=== PATIENT | male | born 1950 | race Caucasian/White ===

== ENCOUNTER → 2020-09-11 09:34 | Outpatient (REF) | payer MEDICARE, SELFPAY ==
--- NOTE | 2020-09-11 09:37 | CA_ITS ---
Transthoracic Echocardiogram Patient (Last, First, Middle): Ponce Fitzpatrick R Gender: Male Date of : 1950 Age: 70 Procedure Date: 09/11/2020 Procedure Type: Transthoracic Echocardiogram Location: OP Height: 175.26 cm Weight: 95.26 kg BSA: 2.11 m2 Heart Rate: bpm BP: 156 / 66 mmHg Train Driver: AUDELIA Referring MD: Efraín Perry [facility] Group Home Counselor: Adam Whyte MD Symptoms: R01.1 - Cardiac murmur, unspecified Study Quality: Good ECG Rhythm: Sinus Conclusions: - 1. Normal LV systolic function with impaired relaxation filling pattern 2. Moderate to severe aortic stenosis 3. Normal RV systolic pressure 4. No pericardial effusion Findings Left Ventricle Normal left ventricular size, thickness, and systolic function. The visually estimated ejection fraction is between 55-60%. Spectral Doppler is indicative of an impaired relaxation filling pattern. E/E prime ratio is between 8 and 15 consistent with indeterminate filling pressures. Right Ventricle Normal right ventricular cavity size and systolic function. Atria The left atrium is mildly dilated. There is lipomatous hypertrophy of the interatrial septum. There is no evidence of interatrial shunt. The right atrium is normal in size. Aortic Valve There is moderate calcification of the aortic valve. There is moderate thickening of the aortic valve. There is moderate to severe aortic valve stenosis. The peak aortic gradient is 50 mmHg.The mean gradient is 33 mmHg. The aortic valve area is 1.03 cm2. There is no aortic valve regurgitation. Mitral Valve There is mild anterior and posterior mitral leaflet thickening. There is mild mitral annular calcification. There is trace mitral valve regurgitation. There is no mitral valve stenosis. Pulmonic Valve The pulmonic valve was not well visualized. Tricuspid Valve Likely normal tricuspid valve structure and function. There is mild tricuspid valve regurgitation. The right ventricular systolic pressure is normal. The right ventricular systolic pressure is 28 mmHg. Normal right atrial pressure. There is no evidence of pulmonary hypertension. Great Vessels All visible segments of the aorta are normal in size. The pulmonary artery was not well visualized. Venous The inferior vena cava is normal in size and collapses greater than 50% with inspiration. Pericardium/Pleural There is no evidence of pericardial effusion. Prior Study Comparison No prior study available for comparison. Measurements 2D Linear Measurements RVIDd: 2.96 RVIDd Index: 1.40 IVSd: 1.13 0.6-0.9/0.6-1.0 cm LVIDd: 5.01 3.9-5.3/4.2-5.9 cm LVIDd Index: 2.37 2.4-3.2/2.2-3.1 cm/m2 LVIDs: 3.57 2.0-3.6 cm LVPWd: 1.19 0.7-1.1 cm Ao Root: 3.10 2.1-3.5 cm LA Diam: 4.40 2.7-3.8/3.0-4.0 cm LAIDs Index: 2.09 1.5-2.3 cm/m2 LV Mass: 278.80 67-162/88-224 g LV Mass Index: 132.13 43-95/49-115 g/m2 LVOT Diam: 2.40 3.0+(-)1.3 cm 2D Systolic Function EF 4C: 48.20 >55% EF 2C: 56.50 >55% Mitral Valve MV Pk E: 0.60 MV PK A: 0.77 MV Decel Time: 459.00 E/A: 0.80 E'Lateral: 6.96 E'Medial: 5.22 E/E' Med: 11.50 E/E' Lat: 8.60 Aortic Valve AoV Pk Kane: 3.53 AoV Mn Kane: 2.78 AoV VTI: 1.04 AoV Pk Grad: 50.00 Aov Mn Grad: 33.00 JULIO Cont.VTI: 1.03 LVOT LVOT Pk Kane: 0.91 LVOT Mn Kane: 0.59 LVOT VTI: 0.24 LVOT Pk Grad: 3.00 LVOT Mn Grad: 2.00 LVOT Diam: 2.40 LVOT Area: 4.52 Diastolic Function MV Pk E: 0.60 MV Pk A: 0.77 E/A: 0.80 E'Medial: 5.22 E/E' Med: 11.50 E' Laterial: 6.96 E/E' Lat: 8.60 Tricuspid Valve TR Pk Kane: 2.50 TR Pk Grad: 25.00 RA Press: 3.00 RVSP: 28.00 Great Vessels Aorta Ao Root-2D: 3.10 2.0-3.7 cm Ao Asc: 2.80 2.1-3.4 cm Updated in Other Vendor System with Status of Final Adam Whyte MD electronically signed on 09/12/2020 5:03:45 PM with status of Final
== END ==
LOC: HO.CARD 09:34
PROVIDERS: PCP Nurse Practitioner Family; Visit Provider Nurse Practitioner Family
DX: R01.1 Cardiac murmur, unspecified (principal)
CPT/HCPCS: 93306

== ENCOUNTER → 2020-10-01 08:08 | Outpatient (BNVA) | payer MEDICARE, SELFPAY | PROVIDERS: PCP Nurse Practitioner Family; Visit Provider Internal Medicine | DX: I35.0 Nonrheumatic aortic (valve) stenosis (principal); I49.3 Ventricular premature depolarization | CPT/HCPCS: 93005; 99202 ==

== ENCOUNTER → 2021-01-14 09:04 | Outpatient (REF) | payer MEDICARE, SELFPAY ==
--- NOTE | 2021-01-14 09:08 | CA_ITS ---
Transthoracic Echocardiogram Patient (Last, First, Middle): Ponce Fitzpatrick R Gender: Male Date of : 1950 Age: 70 Procedure Date: 01/14/2021 Procedure Type: Transthoracic Echocardiogram Location: OP Height: 175.26 cm Weight: 95.26 kg BSA: 2.11 m2 Heart Rate: bpm BP: 120 / 58 mmHg Dye Mixer: Sofiya MD: Froylan Galvan MD Payroll Tax Analyst: Adam Whyte MD Symptoms: I35.0 - Nonrheumatic aortic (valve) stenosis Study Quality: Good ECG Rhythm: Sinus Conclusions: - 1. Moderately severe to severe aortic stenosis 2. Normal LV systolic function with impaired relaxation filling pattern 3. No gross pericardial effusion Findings Left Ventricle Normal left ventricular size, thickness, and systolic function. The visually estimated ejection fraction is between 60-65%. Spectral Doppler is indicative of an impaired relaxation filling pattern. E/E prime ratio is between 8 and 15 consistent with indeterminate filling pressures. Right Ventricle Normal right ventricular cavity size and systolic function. Atria The left atrium is likely dilated. Interatrial shunt cannot be excluded. The right atrium is normal in size. Aortic Valve There is moderate calcification of the aortic valve. There is moderate thickening of the aortic valve with reduced excursion. There is moderate to severe aortic valve stenosis. The peak aortic gradient is 51 mmHg.The mean gradient is 38 mmHg. There is no aortic valve regurgitation. Calculated valve area of 1.02 centimeters sq with dimensionless index of 0.23. Mean gradient of 38 mm of mercury. Overall consistent with moderately severe to severe aortic stenosis Mitral Valve Normal mitral valve structure and function. There is mild mitral annular calcification. There is trace mitral valve regurgitation. There is no mitral valve stenosis. Pulmonic Valve The pulmonic valve was not well visualized. Tricuspid Valve Likely normal tricuspid valve structure and function. Tricuspid regurgitation envelope is inadequate for calculation of right ventricular systolic pressure. Great Vessels All visible segments of the aorta are normal in size. The pulmonary artery was not well visualized. Venous The inferior vena cava is normal in size and collapses greater than 50% with inspiration. Pericardium/Pleural There is no evidence of pericardial effusion. Prior Study Comparison Changes noted compared to prior study dated: 09/11/2020. Mean gradient calculated on this study was 38 mm of mercury which is slightly elevated compared to prior study Measurements 2D Linear Measurements RVIDd: 3.05 RVIDd Index: 1.45 IVSd: 1.11 0.6-0.9/0.6-1.0 cm LVIDd: 4.97 3.9-5.3/4.2-5.9 cm LVIDd Index: 2.36 2.4-3.2/2.2-3.1 cm/m2 LVPWd: 1.28 0.7-1.1 cm Ao Root: 2.90 2.1-3.5 cm LA Diam: 4.60 2.7-3.8/3.0-4.0 cm LAIDs Index: 2.18 1.5-2.3 cm/m2 LV Mass: 286.96 67-162/88-224 g LV Mass Index: 136.00 43-95/49-115 g/m2 LVOT Diam: 2.30 3.0+(-)1.3 cm 2D Systolic Function EF 4C: 62.60 >55% EF 2C: 68.20 >55% EF BiP: 64.20 >55% Mitral Valve MV Pk E: 0.75 MV PK A: 0.82 MV Decel Time: 264.00 E/A: 0.90 E'Lateral: 7.35 E'Medial: 6.87 E/E' Med: 10.90 E/E' Lat: 10.20 Aortic Valve AoV Pk Kane: 3.58 AoV Mn Kane: 2.81 AoV VTI: 0.99 AoV Pk Grad: 51.00 Aov Mn Grad: 38.00 JULIO Cont.VTI: 1.02 LVOT LVOT Pk Kane: 1.01 LVOT Mn Kane: 0.68 LVOT VTI: 0.24 LVOT Pk Grad: 4.00 LVOT Mn Grad: 2.00 LVOT Diam: 2.30 LVOT Area: 4.15 Diastolic Function MV Pk E: 0.75 MV Pk A: 0.82 E/A: 0.90 E'Medial: 6.87 E/E' Med: 10.90 E' Laterial: 7.35 E/E' Lat: 10.20 Tricuspid Valve RA Press: 3.00 Great Vessels Aorta Ao Root-2D: 2.90 2.0-3.7 cm Ao Asc: 3.00 2.1-3.4 cm Updated in Other Vendor System with Status of Final Adam Whyte MD electronically signed on 01/14/2021 12:00:15 PM with status of Final
== END ==
LOC: HO.CARD 09:04
PROVIDERS: Visit Provider Internal Medicine
DX: I35.0 Nonrheumatic aortic (valve) stenosis (principal)
CPT/HCPCS: 93306

== ENCOUNTER 2021-02-05 12:54 | Outpatient (REF) | payer MEDICARE, SELFPAY ==
[2021-02-05 14:28] LABS: Alanine Aminotransferase 24 U/L (0-40); Albumin Level 4.5 g/dL (3.5-5.0); Alkaline Phosphatase 65 U/L (39-117); Anion Gap 15 (12-20); Aspartate Amino Transferase 24 U/L (5-37); Bilirubin Total 1.1 mg/dL (0.0-1.0); Blood Urea Nitrogen 15 mg/dL (9-16); Calcium 10.1 mg/dL (8.4-10.2); Carbon Dioxide 29 mmol/L (22-29); Chloride 105 mmol/L (96-108); Cholesterol 214 mg/dL; Estimated Glomerular Filt Rate > 60; Glucose Fasting 92 mg/dL (60-99); HDL Cholesterol 47 mg/dL; LDL Cholesterol Calculated 148 mg/dl; Potassium 5.2 mmol/L (3.3-5.1); Sodium 144 mmol/L (135-145); Triglycerides 99 mg/dL
[2021-02-05 14:36] LABS: Prostate Specific Antigen Scr 0.66 ng/mL (<0.05-4.0); TSH reflex Free T4 0.85 uIU/mL (0.32-4.0)
[2021-02-09 13:27] LABS: Testosterone, Free 49.5 pg/mL (35.0-155.0); Testosterone, Total 364 ng/dL (250-1100)
== END 2021-02-05 12:55 | disposition home or self-care (01) ==
LOC: HO.HMGCLDS 12:54
PROVIDERS: PCP Nurse Practitioner Family; Visit Provider Nurse Practitioner Family
DX: Z00.00 Encounter for general adult medical examination without abnormal findings (principal); Z12.5 Encounter for screening for malignant neoplasm of prostate; N52.9 Male erectile dysfunction, unspecified; I35.0 Nonrheumatic aortic (valve) stenosis
CPT/HCPCS: 36415; 80053; 80061; 84153; 84402; 84403; 84443

== ENCOUNTER → 2021-02-06 09:35 | Outpatient (BNVA) | payer MEDICARE, SELFPAY | PROVIDERS: PCP Nurse Practitioner Family; Visit Provider Internal Medicine | DX: I35.0 Nonrheumatic aortic (valve) stenosis (principal); I49.3 Ventricular premature depolarization | CPT/HCPCS: 99212 ==

== ENCOUNTER 2021-02-14 14:49 | Outpatient (REF) | payer MEDICARE, SELFPAY ==
[2021-02-14 17:27] LABS: Anion Gap 13 (12-20); Carbon Dioxide 28 mmol/L (22-29); Chloride 105 mmol/L (96-108); Potassium 4.2 mmol/L (3.3-5.1); Sodium 142 mmol/L (135-145)
== END 2021-02-14 14:50 | disposition home or self-care (01) ==
LOC: HO.HMGCLDS 14:49
PROVIDERS: PCP Nurse Practitioner Family; Visit Provider Nurse Practitioner Family
DX: E87.5 Hyperkalemia (principal)
CPT/HCPCS: 36415; 80051

== ENCOUNTER 2021-02-22 09:32 | Outpatient (REF) | payer MEDICARE, SELFPAY ==
[2021-02-22 11:34] LABS: Iron 93 mcg/dL (45-160); Percent Iron Saturation 35 % (15-50); Total Iron Binding Capacity 263 mcg/dL (228-428); Unsaturated Iron Binding 170 ug/dL
[2021-02-22 11:58] LABS: Ferritin 215 ng/mL (20-250); Vitamin D 25-OH Total 45.6 ng/mL (>30)
[2021-02-24 03:50] LABS: Folate 17.7 ng/mL (> or = 4.0); Vitamin B12 368 pg/mL (200-900)
== END 2021-02-22 09:33 | disposition home or self-care (01) ==
LOC: HO.HMGCLDS 09:32
PROVIDERS: PCP Nurse Practitioner Family; Visit Provider Nurse Practitioner Family
DX: R53.83 Other fatigue (principal)
CPT/HCPCS: 36415; 82306; 82607; 82728; 82746; 83540

== ENCOUNTER → 2021-04-02 11:47 | Outpatient (BNVA) | payer MEDICARE, SELFPAY | PROVIDERS: PCP Nurse Practitioner Family; Referring Provider Nurse Practitioner Family; Visit Provider Nurse Practitioner Family | DX: Z12.11 Encounter for screening for malignant neoplasm of colon (principal); R01.1 Cardiac murmur, unspecified; I35.0 Nonrheumatic aortic (valve) stenosis; J44.9 Chronic obstructive pulmonary disease, unspecified; F17.200 Nicotine dependence, unspecified, uncomplicated; Z96.642 Presence of left artificial hip joint | CPT/HCPCS: 99202 ==

== ENCOUNTER → 2021-06-13 08:40 | Outpatient (BNVA) | payer MEDICARE, SELFPAY | PROVIDERS: PCP Nurse Practitioner Family; Visit Provider Urology | DX: N52.9 Male erectile dysfunction, unspecified (principal) | CPT/HCPCS: 99202 ==

== ENCOUNTER → 2021-07-14 09:16 | Outpatient (REF) | payer MEDICARE, SELFPAY ==
--- NOTE | 2021-07-14 09:19 | CA_ITS ---
Transthoracic Echocardiogram Patient (Last, First, Middle): Ponce Fitzpatrick R Gender: Male Date of : 1950 Age: 71 Procedure Date: 07/14/2021 Procedure Type: Transthoracic Echocardiogram Location: OP Height: 175.26 cm Weight: 90.72 kg BSA: 2.07 m2 Heart Rate: bpm BP: 110 / 60 mmHg Emergency Department Physician: FATOUMATA Referring MD: Froylan Galvan MD Symptoms: I35.0 - Nonrheumatic aortic (valve) stenosis Study Quality: Fair ECG Rhythm: Sinus Conclusions: - The left ventricular systolic function is normal. The visually estimated ejection fraction is between 60-65%. - There is moderate to severe aortic valve stenosis. Findings Left Ventricle Normal left ventricular cavity size. There is mildly increased left ventricular wall thickness. The left ventricular systolic function is normal. The visually estimated ejection fraction is between 60-65%. There is no evidence of regional wall motion abnormalities. E/E prime ratio is between 8 and 15 consistent with indeterminate filling pressures. Evidence suggests grade I (mild) diastolic dysfunction. Right Ventricle Normal right ventricular cavity size and systolic function. Atria Both atria are normal in size. Aortic Valve There is severe calcification of the aortic valve. There is moderate to severe aortic valve stenosis. The peak aortic velocity is 4.02 m/s with a calculated peak gradient of 65 mmHg. The mean gradient is 38 mmHg. The aortic valve area is 1.13 cm2. There is no aortic valve regurgitation. Dimensionless index 0.26. Mitral Valve The mitral valve appears normal. There is trace mitral valve regurgitation. There is no mitral valve stenosis. Pulmonic Valve The pulmonic valve was not well visualized. Tricuspid Valve Normal tricuspid valve structure. There is trace tricuspid valve regurgitation. The pulmonary artery systolic pressure is normal. Great Vessels The asc aorta is normal in size. Venous The inferior vena cava is normal in size and collapses greater than 50% with inspiration. Pericardium/Pleural There is no evidence of pericardial effusion. Prior Study Comparison No significant change compared to prior study dated: 01/14/2021. Measurements 2D Linear Measurements IVSd: 1.14 0.6-0.9/0.6-1.0 cm LVIDd: 4.20 3.9-5.3/4.2-5.9 cm LVIDd Index: 2.03 2.4-3.2/2.2-3.1 cm/m2 LVIDs: 2.57 2.0-3.6 cm LVPWd: 1.22 0.7-1.1 cm Ao Root: 3.00 2.1-3.5 cm LA Diam: 3.80 2.7-3.8/3.0-4.0 cm LAIDs Index: 1.84 1.5-2.3 cm/m2 LV Mass: 216.54 67-162/88-224 g LV Mass Index: 104.61 43-95/49-115 g/m2 LVOT Diam: 2.30 3.0+(-)1.3 cm 2D Systolic Function EF 4C: 62.40 >55% EF 2C: 52.80 >55% EF BiP: 58.40 >55% Mitral Valve MV Pk E: 0.69 MV PK A: 0.88 MV Decel Time: 369.00 E/A: 0.80 E'Lateral: 6.09 E'Medial: 6.85 E/E' Med: 10.00 E/E' Lat: 11.30 PHT: 108.00 MVA PHT: 2.04 Decel [place]: 1.86 Aortic Valve AoV Pk Kane: 4.02 AoV Mn Kane: 2.97 AoV VTI: 0.97 AoV Pk Grad: 65.00 Aov Mn Grad: 38.00 JULIO Cont.VTI: 1.13 LVOT LVOT Pk Kane: 1.06 LVOT Mn Kane: 0.73 LVOT VTI: 0.27 LVOT Pk Grad: 4.00 LVOT Mn Grad: 2.00 LVOT Diam: 2.30 LVOT Area: 4.15 Diastolic Function MV Pk E: 0.69 MV Pk A: 0.88 E/A: 0.80 E'Medial: 6.85 E/E' Med: 10.00 E' Laterial: 6.09 E/E' Lat: 11.30 Right Ventricle TAPSE (mm): 2.72 TVS' Kane: 14.10 Tricuspid Valve RA Press: 3.00 Great Vessels Aorta Ao Root-2D: 3.00 2.0-3.7 cm Ao Asc: 3.30 2.1-3.4 cm Updated in Other Vendor System with Status of Final Froylan Galvan MD electronically signed on 07/14/2021 11:44:16 AM with status of Final
== END ==
LOC: HO.CARD 09:16
PROVIDERS: PCP Nurse Practitioner Family; Visit Provider Internal Medicine
DX: I35.0 Nonrheumatic aortic (valve) stenosis (principal)
CPT/HCPCS: 93306

== ENCOUNTER → 2021-08-12 08:21 | Outpatient (BNVA) | payer MEDICARE, SELFPAY | PROVIDERS: PCP Nurse Practitioner Family; Referring Provider Nurse Practitioner Family; Visit Provider Internal Medicine ==

== ENCOUNTER → 2021-08-13 09:00 | Outpatient (BNVA) | payer MEDICARE, SELFPAY | PROVIDERS: PCP Nurse Practitioner Family; Referring Provider Nurse Practitioner Family; Visit Provider Internal Medicine | DX: I35.0 Nonrheumatic aortic (valve) stenosis (principal); I49.3 Ventricular premature depolarization | CPT/HCPCS: 99212 ==

== ENCOUNTER 2021-09-11 07:08 | Outpatient (REF) | payer MEDICARE, SELFPAY ==
[2021-09-11 11:09] LABS: Appearance Urine CLEAR; Color Urine YELLOW; Glucose Urine UA NEG (NEG); Leukocyte Esterase Urine NEG (NEG); Nitrite Urine NEG (NEG); Specific Gravity - Urine <= 1.005 (1.005-1.025); Urine Blood NEG (NEG); Urine Ketones NEG (NEG); Urine Protein NEG (NEG-TRACE)
[2021-09-11 11:50] LABS: Alanine Aminotransferase 21 U/L (0-40); Albumin Level 4.2 g/dL (3.5-5.0); Alkaline Phosphatase 61 U/L (39-117); Anion Gap 13 (12-20); Aspartate Amino Transferase 24 U/L (5-37); Bilirubin Total 0.9 mg/dL (0.0-1.0); Blood Urea Nitrogen 16 mg/dL (9-16); Calcium 9.6 mg/dL (8.4-10.2); Carbon Dioxide 26 mmol/L (22-29); Chloride 106 mmol/L (96-108); Cholesterol 147 mg/dL; Estimated Glomerular Filt Rate > 60; Glucose Fasting 95 mg/dL (60-99); HDL Cholesterol 49 mg/dL; LDL Cholesterol Calculated 77 mg/dl; Potassium 4.2 mmol/L (3.3-5.1); Sodium 141 mmol/L (135-145); Total Protein 6.7 g/dL (6.5-8.0); Triglycerides 105 mg/dL
[2021-09-11 12:00] LABS: TSH reflex Free T4 2.38 uIU/mL (0.32-4.0)
== END 2021-09-11 07:09 | disposition home or self-care (01) ==
LOC: HO.HMGCLDS 07:08
PROVIDERS: PCP Nurse Practitioner Family; Visit Provider Nurse Practitioner Family
DX: E78.5 Hyperlipidemia, unspecified (principal)
CPT/HCPCS: 36415; 80053; 80061; 81003; 84443

== ENCOUNTER → 2021-09-18 08:20 | Outpatient (BNVA) | payer MEDICARE, SELFPAY | PROVIDERS: PCP Nurse Practitioner Family; Visit Provider Urology | DX: Z13.89 Encounter for screening for other disorder (principal) | CPT/HCPCS: Q3014 ==

== ENCOUNTER 2022-01-27 07:43 | Outpatient (REF) | payer MEDICARE, SELFPAY ==
[2022-01-27 11:21] LABS: MANUAL DIFF FLAG NO
[2022-01-27 11:42] LABS: Appearance Urine CLEAR; Color Urine STRAW; Glucose Urine UA NEG (NEG); Leukocyte Esterase Urine NEG (NEG); Nitrite Urine NEG (NEG); Specific Gravity - Urine <= 1.005 (1.005-1.025); Urine Blood NEG (NEG); Urine Ketones NEG (NEG); Urine Protein NEG (NEG-TRACE)
[2022-01-27 11:50] LABS: Basophils Percent Auto 0.6 % (0-2); Eosinophils Absolute Auto 0.4 X10*3/uL (0.0-0.4); Eosinophils Percent Auto 5.1 % (0-4); Hematocrit 45.1 % (42.0-52.0); Hemoglobin 14.7 g/dl (14.0-18.0); Imm Gran Abs Auto 0.01 X10*3/uL (0.00-0.03); Imm Gran Pct Auto 0.1 % (0.0-0.4); Lymphocytes Percent Auto 28.3 % (20-40); Mean Corpuscular HGB Conc 32.6 g/dl (31.0-36.0); Mean Corpuscular Hemoglobin 29.2 pg (27.0-33.0); Mean Corpuscular Volume 89.5 fL (80.0-98.0); Mean Platelet Volume 11.2 fL (9.4-12.4); Monocytes Absolute Auto 0.7 X10*3/uL (0.1-1.2); Monocytes Percent Auto 10.8 % (2-11); Neutrophils Absolute Auto 3.8 x10*3/uL (2.0-8.3); Neutrophils Percent Auto 55.1 % (45-73); Platelet Count 218 X10*3/uL (160-400); Red Blood Count 5.04 X10*6/uL (4.60-5.80); Red Cell Distribution Width 13.9 % (11.0-16.0); White Blood Count 6.9 X10*3/uL (4.8-10.8)
[2022-01-27 12:19] LABS: TSH reflex Free T4 2.23 uIU/mL (0.32-4.0); Vitamin D 25-OH Total 100.7 ng/mL (>30)
[2022-01-27 12:22] LABS: Alanine Aminotransferase 20 U/L (0-40); Albumin Level 4.2 g/dL (3.5-5.0); Alkaline Phosphatase 57 U/L (39-117); Anion Gap 12 (12-20); Aspartate Amino Transferase 23 U/L (5-37); Bilirubin Total 0.9 mg/dL (0.0-1.0); Blood Urea Nitrogen 18 mg/dL (9-16); Calcium 9.9 mg/dL (8.4-10.2); Carbon Dioxide 25 mmol/L (22-29); Chloride 105 mmol/L (96-108); Cholesterol 176 mg/dL; Estimated Glomerular Filt Rate > 60; Glucose Fasting 101 mg/dL (60-99); HDL Cholesterol 48 mg/dL; LDL Cholesterol Calculated 109 mg/dl; Potassium 4.1 mmol/L (3.3-5.1); Sodium 138 mmol/L (135-145); Total Protein 6.8 g/dL (6.5-8.0); Triglycerides 98 mg/dL
== END 2022-01-27 07:44 | disposition home or self-care (01) ==
LOC: HO.HMGCLDS 07:43
PROVIDERS: Visit Provider Nurse Practitioner Family
DX: E78.5 Hyperlipidemia, unspecified (principal)
CPT/HCPCS: 36415; 80053; 80061; 81003; 82306; 84443; 85025

== ENCOUNTER → 2022-02-06 12:30 | Outpatient (REF) | payer MEDICARE, SELFPAY ==
--- NOTE | 2022-02-06 12:32 | CA_ITS ---
Transthoracic Echocardiogram Patient (Last, First, Middle): Ponce Fitzpatrick R Gender: Male Date of : 1950 Age: 71 Procedure Date: 02/06/2022 Procedure Type: Transthoracic Echocardiogram Location: OP Height: 175.26 cm Weight: 95.26 kg BSA: 2.11 m2 Heart Rate: bpm BP: 136 / 60 mmHg Tie Presser: SB Referring MD: Froylan Galvan MD Symptoms: I35.0 - Nonrheumatic aortic (valve) stenosis Study Quality: Fair ECG Rhythm: Bradycardia Conclusions: - The left ventricular systolic function is normal. The calculated ejection fraction is 63% by biplane method. - There is moderate to severe aortic valve stenosis. Findings Left Ventricle Normal left ventricular cavity size. There is moderately increased left ventricular wall thickness. The left ventricular systolic function is normal. The calculated ejection fraction is 63% by biplane method. There is no evidence of regional wall motion abnormalities. Diastolic function is normal for age. LV peak GLS -16.2%. Right Ventricle Normal right ventricular cavity size and systolic function. Atria Both atria are normal in size. Aortic Valve There is moderate calcification of the aortic valve. There is moderate to severe aortic valve stenosis. The peak aortic velocity is 3.94 m/s with a calculated peak gradient of 62 mmHg. The mean gradient is 38 mmHg. The aortic valve area is 1.12 cm2. There is no aortic valve regurgitation. Dimensionless index 0.24. Stroke volume index 50 cc/m2. Mitral Valve There is mild mitral annular calcification. There is no mitral valve regurgitation. There is no mitral valve stenosis. Pulmonic Valve The pulmonic valve is likely normal. Tricuspid Valve Likely normal tricuspid valve structure and function. There is trace tricuspid valve regurgitation. The pulmonary artery systolic pressure is normal. Great Vessels The sino tubular ridge and asc aorta are normal in size. Venous The inferior vena cava is normal in size and collapses greater than 50% with inspiration. Pericardium/Pleural There is no evidence of pericardial effusion. Prior Study Comparison No significant change compared to prior study dated: 07/14/2021. Measurements 2D Linear Measurements IVSd: 1.21 0.6-0.9/0.6-1.0 cm LVIDd: 5.45 3.9-5.3/4.2-5.9 cm LVIDd Index: 2.58 2.4-3.2/2.2-3.1 cm/m2 LVIDs: 3.22 2.0-3.6 cm LVPWd: 1.52 0.7-1.1 cm LA Diam: 3.80 2.7-3.8/3.0-4.0 cm LAIDs Index: 1.80 1.5-2.3 cm/m2 LV Mass: 400.88 67-162/88-224 g LV Mass Index: 189.99 43-95/49-115 g/m2 LVOT Diam: 2.30 3.0+(-)1.3 cm 2D Systolic Function EF 4C: 61.50 >55% EF 2C: 67.50 >55% EF BiP: 62.60 >55% Mitral Valve MV Pk E: 0.59 MV PK A: 0.93 MV Decel Time: 312.00 E/A: 0.60 E'Lateral: 5.55 E'Medial: 6.42 E/E' Med: 9.10 E/E' Lat: 10.60 PHT: 91.00 MVA PHT: 2.42 Decel [place]: 1.88 Aortic Valve AoV Pk Kane: 3.94 AoV Mn Kane: 2.92 AoV VTI: 0.96 AoV Pk Grad: 62.00 Aov Mn Grad: 38.00 JULIO Cont.VTI: 1.12 LVOT LVOT Pk Kane: 0.96 LVOT Mn Kane: 0.68 LVOT VTI: 0.26 LVOT Pk Grad: 4.00 LVOT Mn Grad: 2.00 LVOT Diam: 2.30 LVOT Area: 4.15 Diastolic Function MV Pk E: 0.59 MV Pk A: 0.93 E/A: 0.60 E'Medial: 6.42 E/E' Med: 9.10 E' Laterial: 5.55 E/E' Lat: 10.60 Right Ventricle TAPSE (mm): 24.80 TVS' Kane: 14.90 Tricuspid Valve RA Press: 3.00 Great Vessels Aorta Sinus of Valsalva: 3.02 2.0-3.[address] [place]: 2.60 1.7-3.4 cm Ao Asc: 2.90 2.1-3.4 cm Pulmonary Veins Pulm Vein S/D 1.20 Pulmonary Valve PV Pk Kane: 1.09 Peak PV Grad: 5.00 Updated in Other Vendor System with Status of Final Froylan Galvan MD electronically signed on 02/07/2022 1:05:23 PM with status of Final
== END ==
LOC: HO.CARD 12:30
PROVIDERS: Visit Provider Internal Medicine
DX: I35.0 Nonrheumatic aortic (valve) stenosis (principal)
CPT/HCPCS: 93306; 93356

== ENCOUNTER → 2022-03-11 09:02 | Outpatient (BNVA) | payer MEDICARE, SELFPAY | PROVIDERS: PCP Nurse Practitioner Family; Referring Provider Nurse Practitioner Family; Visit Provider Internal Medicine | DX: I35.0 Nonrheumatic aortic (valve) stenosis (principal); I49.3 Ventricular premature depolarization; I10 Essential (primary) hypertension | CPT/HCPCS: 93005; 99212 ==

== ENCOUNTER 2022-03-24 10:01 | Outpatient (REF) | payer MEDICARE, SELFPAY ==
--- NOTE | ~2022-03-24 | XR_ITS ---
EXAMINATION: XR LUMBOSACRAL SPINE CLINICAL INFORMATION: M54.50 - Low back pain, unspecified COMPARISON: None TECHNIQUE: Three views of the lumbosacral spine. FINDINGS: Normal lumbar segmentation with 5 nonrib-bearing lumbar vertebrae with normal lumbar lordosis. There is borderline wedging vertebral bodies T12 and L1. No fracture line or subluxation or paraspinal soft tissue swelling. There are degenerative disc changes greatest L5-S1 but also involving L4-L5 and L3-L4. Multilevel vertebral spurring is present. There is borderline grade 0-1 spondylolisthesis L4 on L5. The SI joints and visualized sacrum are unremarkable. 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 XR/XR lumbar spine 2-3V IMPRESSION: -Multilevel degenerative disc changes, greatest L5-S1. -Borderline spondylolisthesis grade 0-1 L4-L5. -Borderline wedging vertebral bodies T12 and L1. No paraspinal soft tissue swelling.
== END 2022-03-24 10:02 | disposition home or self-care (01) ==
LOC: HO.HMGCX 10:01
PROVIDERS: Visit Provider Nurse Practitioner Family
DX: M54.50 Low back pain, unspecified (principal)
CPT/HCPCS: 72100

== ENCOUNTER 2022-03-29 11:26 | Emergency (ER) | payer MEDICARE, SELFPAY ==
--- NOTE | ~2022-03-29 | XR_ITS ---
EXAMINATION: XR CHEST CLINICAL INFORMATION: Cough/congestion. COMPARISON: Chest 03/28/2019 TECHNIQUE: 2 views of the chest were obtained. FINDINGS: The lungs are well-expanded and clear. There is calcified nodule left upper lobe stable. No additional nodules seen. The heart size and pulmonary vascularity is normal. There is moderate spondylosis dorsal spine. No lytic process. There are surgical daja in the right axilla. XR/XR chest 2V IMPRESSION: Unremarkable chest exam. Surgical daja in the right axilla from previous intervention.
[2022-03-29 11:31] VITALS: BP 131/54; PULSE 73; RESP 20; TEMP 36.7; O2SAT 95; BMI 31.0
--- NOTE | 2022-03-29 12:07 | ED_ITS ---
HPI - URI/Sore Throat General Chief Complaint: Upper Respiratory Symptoms Stated Complaint: sinuses/dizziness/difficulty breathing Time Seen by Provider: 03/29/22 11:56 Source: patient and RN notes reviewed Mode of arrival: ambulatory Limitations: no limitations History of Present Illness HPI Narrative: 71-year-old male with past medical history of hypertension, sinus sinus, skin cancer, hyperkalemia, dyslipidemia, aortic stenosis presents to ED with complaint of sinus pressure, rhinorrhea, cough for the past week or so. Patient reports that when he was working outside over 1 week ago he was working around l ot of pollen and started with rhinorrhea and then reported to have sinus pain. Patient called his PCP and was given amoxicillin and prednisone. Patient reports that his symptoms did not get any better. He self tested for COVID before and was negative. Patient had similar symptoms back in December and was treated with Bactrim and his symptoms went away. Today he denies any chest pain, pressure, palpitation, SOB with or without exertion. Patient denies subjective fevers. Reports to have cough that wakes him up during the night. Patient states that he has to sleep in a recliner lot of postnasal drip, green color when he blows his nose. Reports also mild earache bilaterally. Patient reports to be feeling very stuffy MD elicited complaint: sore throat, rhinorrhea, nasal congestion and sinus pain Pertinent past history: sinusitis and seasonal allergies Onset (ago): week(s) Consistency: intermittent Severity: mild Description of mucous: green Able to tolerate fluids by mouth: Yes Exacerbating factors: nothing Relieving factors: nothing Associated symptoms: denies other symptoms Related Data Home Medications Medication Instructions Recorded Confirmed finasteride 5 mg tablet 5 mg PO BEDTIME 08/08/20 03/23/22 tamsulosin 0.4 mg capsule 0.4 mg PO DAILY 01/20/22 03/23/22 Previous Rx's Medication Instructions Recorded nystatin 100,000 unit/gram topical 1 appl topical DAILY PRN 12/06/21 powder dermatitis 30 days #60 grams umeclidinium 62.5 mcg/actuation 1 inh inhalation DAILY 30 days #30 01/26/22 blister powder for inhalation ea (Incruse Ellipta) atorvastatin 20 mg tablet 20 mg PO BEDTIME #90 tabs 02/09/22 amoxicillin 500 mg capsule 500 mg PO Q12H 7 days #14 caps 03/23/22 cyclobenzaprine 10 mg tablet 10 mg PO BEDTIME PRN muscle spasm 03/23/22 15 days #15 tabs prednisone 50 mg tablet 50 mg PO DAILY 6 days #6 tabs 03/23/22 amoxicillin 875 mg-potassium 1 tab PO Q12H #20 tabs 03/29/22 clavulanate 125 mg tablet benzonatate 100 mg capsule 100 mg PO BID PRN cough #20 caps 03/29/22 fluticasone propionate 50 1 spray intranasal BID #16 grams 03/29/22 mcg/actuation nasal spray,suspension (Flonase Allergy Relief) loratadine 10 mg tablet (Claritin) 10 mg PO DAILY PRN allergy 03/29/22 symptoms #30 tabs Allergies Allergy/AdvReac Type Severity Reaction Status Date / Time formaldehyde [FORMALDEHYDE] Allergy Unknown HIVES Verified 03/29/22 11:30 a steroid cream; he is not Allergy Unknown Unknown Uncoded 03/23/22 12:53 dimitry [employer] and [employer] Allergy Unknown Unknown Uncoded 03/23/22 12:53 Review of Systems Review of Systems: Constitutional : No Weight loss, No Fever, No Chills, No Night Sweats, No Fatigue, No Malaise ENT/Mouth : No Hearing loss, Ear Pain, Nasal Congestion, Sinus Pain, No Hoarseness, sore throat, Rhinorrhea, No Swallowing Difficulty Eyes: No Eye Pain, No Swelling, Redness, No Foreign Body, No Discharge, No Vision Changes Cardiovascular : No Chest Pain, No SOB, No Dyspnea on Exertion, No Orthopnea, No Edema, No Palpitations Respiratory : Cough, No Sputum, No Wheezing, No Smoke Exposure, No Dyspnea Gastrointestinal : No Nausea, No Vomiting, No Diarrhea, No Constipation, No abdominal Pain, No Hematochezia, No Melena Genitourinary : no irregular bleeding, No Dysuria, No Urinary Frequency, No Hematuria, No Urinary Incontinence, No Urgency, No Flank Pain, No Urinary Flow Changes, No Hesitancy Musculoskeletal : No joint pain, No Myalgias, No Joint Swelling Skin : No Skin Lesions, No rash Neuro : No Weakness, No Numbness, No Paresthesias, No Loss of Consciousness, No Dizziness, No Headache Psych : No Anxiety/Panic, No Depression, No SI/HI/AH/VH, No Social Issues, Heme/Lymph: No Bruising, No Bleeding,No Lymphadenopathy Endocrine : No Polyuria, No Polydipsia, No Temperature Intolerance Yes all other systems are reviewed and are negative [facility] Past Medical History Medical History COPD (chronic obstructive pulmonary disease) Deformity of left hand Diverticulosis Non-rheumatic aortic stenosis Rectus diastasis Severe aortic stenosis Skin cancer Smoker Systolic murmur Umbilical hernia Surgical History History of left hip replacement Family History Family History Father Unknown family medical history Mother No problems noted. Social History Social History Housing: House Alcohol intake: never Patient Tobacco Use Status: Current everyday Tobacco user Tobacco use type: Cigarette Cigarettes Per Day: 10 Years Smoked: 40 years e-Cigarette/Vaping Use: Never Used Advance Directives: No Advance Directives Information Provided: No Cognitive needs: No Hearing needs: No Vision needs: Yes Physical Exam Vital Signs: Vital Signs: Last Vital Signs Temp 98.0 F 03/29/22 11:31 Pulse 73 03/29/22 11:31 Resp 20 03/29/22 11:31 BP 131/54 L 03/29/22 11:31 Pulse Ox 95 03/29/22 11:31 O2 Del Method 03/29/22 11:31 BMI result Body Mass Index 31.0 Const: General: healthy appearing, no acute distress and well developed Nutritional Appearance: well nourished Orientation/consciousness: patient oriented x3 HEENT: Head: Yes normal to inspection, Yes normocephalic and Yes atraumatic Ears: external ears normal and TM abnormal erythematous bilateral; not bulging and not with effusion Face and sinus: Yes normal facial exam Mouth: Normal oral and palatal mucosa present Throat: Yes posterior oropharynx normal, Yes tonsils normal, Yes uvula midline and Yes posterior oropharynx abnormal (Redness, swollen tonsils) Eyes: General: appearance normal, both eyes and all related structures Neck: Neck: Yes normal visual inspection, Yes full ROM and Yes trachea midline Thyroid: Thyroid normal Resp: Effort & Inspection: normal respiratory effort, able to speak in complete sentences, no tracheal deviation and symmetric chest movement Auscultation: clear to auscultation bilaterally Cardio: Jugular venous distension: no JVD Rate: regular rate Heart sounds: S1 normal heart sound present, S2 normal heart sound present, no gallops and no murmurs GI: Inspection: Yes normal to inspection and No distended Palpation (GI): Soft to palpation, not firm, nontender and No hepatosplenomegaly present Auscultation: normal bowel sounds : General: Yes no CVA tenderness Back/Spine/Pelvis: Back: no CVA tenderness Skin: General skin exam: elasticity normal, turgor normal and dry skin Neuro: General: patient oriented x3 Psych: Appearance: grossly normal Mental Status: mental status grossly normal Speech and movement: Normal speech and movement present Affect: normal affect Attitude: cooperative Thought process: Normal thought process present Thought content: Normal thought content present Insight: Good insight present (Psych) Judgement: Good judgement present (Psych) Course Course Course Narrative: 71-year-old male with past medical history of hypertension, sinus sinus, skin cancer, hyperkalemia, dyslipidemia, aortic stenosis presents to ED with complaint of sinus pressure, rhinorrhea, cough for the past week or so. Patient reports that when he was working outside over 1 week ago he was working around lot of pollen and started with rhinorrhea and then reported to have sinus pain. Patient called his PCP and was given amoxicillin and prednisone. Patient reports that his symptoms did not get any better. He self tested for COVID before and was negative. Patient had similar symptoms back in December and was treated with Bactrim and his symptoms went away. Today he denies any chest pain, pressure, palpitation, SOB with or without exertion. Patient denies subjective fevers. Reports to have cough that wakes him up during the night. Patient states that he has to sleep in a recliner lot of postnasal drip, green color when he blows his nose. Reports also mild earache bilaterally. Patient reports to be feeling very stuffy. Exam shows mild tenderness to paranasal sinuses. Mild erythema to bilateral TM. Will do chest x-ray check for COVID. Will medicate patient with Augmentin and Claritin. Will send patient home with antibiotics for 10 days. Will give him script for Claritin and Flonase. Reevaluation(s) Reevaluation #1: Chest x-ray negative for any acute processes. Negative COVID positive flu. Will send patient home with antibiotics, Flonase, Claritin. Patient was encouraged to rest and drink plenty fluids. Will return if symptoms get worse or any symptoms of CP, PND. Patient will follow-up with PCP MDM - URI/Sore Throat Lab Data Labs: Lab Results 03/29/22 03/29/22 Range/Units 11:39 11:39 COVID-19 (RACHANA) Negative (Negative) COVID-19 Clin Com See Note Influenza Type A (JENNY) Negative (Negative) Influenza Type B (JENNY) Positive A (Negative) Influenza A & B Note See Note Discharge Plan Discharge Clinical Impression: Sinusitis Qualifiers: Sinusitis location: frontal Chronicity: acute Recurrence: recurrent Qualified Code(s): J01.11 - Acute recurrent frontal sinusitis Upper respiratory infection Qualifiers: URI type: unspecified viral URI Qualified Code(s): J06.9 - Acute upper respiratory infection, unspecified Patient Disposition: Home, Self-Care Instructions: Sinusitis (ED), Ear Infection (ED) Additional Instructions: You were seen here today for sinus infection, ear pain and cough. Your chest x- ray was negative for any acute disease. Your COVID test was negative, however you do have a flu. You were given different medication to treat ear and sinus infection. You will take it for 10 days. Make sure you eat when you take this medication to avoid upset stomach. You will also be given medication to help with cold symptoms. Medication to help you with cough. Flonase nasal spray to reduce the inflammation in your nose and help with your sinus pressure. Please return to emergency department if your symptoms will get worse or if you experience any additional concerning symptoms. Prescriptions: New loratadine [Claritin] 10 mg tablet 10 mg PO DAILY PRN (Reason: allergy symptoms) Qty: 30 0RF benzonatate 100 mg capsule 100 mg PO BID PRN (Reason: cough) Qty: 20 0RF amoxicillin-pot clavulanate 875-125 mg tablet 1 tab PO Q12H Qty: 20 0RF fluticasone propionate [Flonase Allergy Relief] 50 mcg/actuation spray ,suspension 1 spray intranasal BID Qty: 16 0RF Rx Instructions: administer into each nostril No Action nystatin 100,000 unit/gram powder 1 appl topical DAILY PRN (Reason: dermatitis) 30 Days Qty: 60 2RF Incruse Ellipta 62.5 mcg/actuation blister with device 1 inh inhalation DAILY 30 Days Qty: 30 3RF atorvastatin 20 mg tablet 20 mg PO BEDTIME Qty: 90 2RF finasteride 5 mg tablet 5 mg PO BEDTIME tamsulosin 0.4 mg capsule 0.4 mg PO DAILY amoxicillin 500 mg capsule 500 mg PO Q12H 7 Days Qty: 14 0RF cyclobenzaprine 10 mg tablet 10 mg PO BEDTIME PRN (Reason: muscle spasm) 15 Days Qty: 15 0RF prednisone 50 mg tablet 50 mg PO DAILY 6 Days Qty: 6 0RF Referrals: Efraín Perry, WELD[facility] ESTIMATOR-BC [Nurse Practitioner] - 1 week
[2022-03-29 12:13] LABS: IDNOW Serial# 16C4AD1C; Influenza A Negative (Negative); Influenza B2 Positive (Negative)
[2022-03-29 12:14] LABS: COVID-19 Test Negative (Negative); IDNOW Serial# 08D9AD1C
[2022-03-29] MEDS: Loratadine 10 MG TABLET PO (12:23)
[2022-03-29] MEDS: Amoxicillin/Potassium Clav 875 MG TABLET PO (12:23)
== END 2022-03-29 13:09 | disposition home or self-care (01) ==
PROVIDERS: Emergency Provider Emergency Medicine Emergency Medical Services; PCP Pediatrics Pediatric Endocrinology
DX: J01.11 Acute recurrent frontal sinusitis (principal); J06.9 Acute upper respiratory infection, unspecified; R42 Dizziness and giddiness; R06.02 Shortness of breath; F17.210 Nicotine dependence, cigarettes, uncomplicated; J02.9 Acute pharyngitis, unspecified; Z20.822 Contact with and (suspected) exposure to COVID-19; Z71.6 Tobacco abuse counseling; Z79.899 Other long term (current) drug therapy
CPT/HCPCS: 71046; 87502; 87635; 99282; 99283

== ENCOUNTER 2022-04-01 15:08 | Emergency (ER) | payer MEDICARE, SELFPAY ==
--- NOTE | ~2022-04-01 | XR_ITS ---
EXAMINATION: XR HIP, RIGHT CLINICAL INFORMATION: Right hip pain after lifting water jug. COMPARISON: None TECHNIQUE: AP upright, AP supine, and frog-leg lateral views of the right hip. FINDINGS: Status post left total hip replacement. Bones and soft tissues otherwise appear unremarkable. No fracture. Alignment is anatomic. Mild to moderate osteoarthritis of the right hip, joint space narrowing, sclerosis, and osteophyte formation. XR/XR hip RT w PEL1V IMPRESSION: No acute finding. Mild to moderate osteoarthritis of the right hip.
[2022-04-01 15:19] VITALS: BP 153/63; PULSE 80; RESP 18; TEMP 36.8; O2SAT 94; BMI 31.0
--- NOTE | 2022-04-01 16:09 | ED_ITS ---
HPI - Extremity Problem General Chief complaint: Extremity Problem Stated complaint: right hip pain Time Seen by Provider: 04/01/22 15:27 Source: patient Mode of arrival: wheelchair History of Present Illness HPI Narrative: 71-year-old male with a past medical history of COPD, diverticulosis, presenting to the ED complaining of right hip/buttock pain radiating down RLE since this morning s/p lifting heavy water pale. Denies direct injury/fall or trauma. Reports associated paresthesias down RLE. Took muscle relaxer and Tylenol without relief. Denies numbness, weakness, urinary incontinence/retention, fever MD Complaint: extremity pain Onset (ago): day(s) Related Data Home Medications Medication Instructions Recorded Confirmed finasteride 5 mg tablet 5 mg PO BEDTIME 08/08/20 03/23/22 tamsulosin 0.4 mg capsule 0.4 mg PO DAILY 01/20/22 03/23/22 Previous Rx's Medication Instructions Recorded nystatin 100,000 unit/gram topical 1 appl topical DAILY PRN 12/06/21 powder dermatitis 30 days #60 grams umeclidinium 62.5 mcg/actuation 1 inh inhalation DAILY 30 days #30 01/26/22 blister powder for inhalation ea (Incruse Ellipta) atorvastatin 20 mg tablet 20 mg PO BEDTIME #90 tabs 02/09/22 amoxicillin 500 mg capsule 500 mg PO Q12H 7 days #14 caps 03/23/22 cyclobenzaprine 10 mg tablet 10 mg PO BEDTIME PRN muscle spasm 03/23/22 15 days #15 tabs prednisone 50 mg tablet 50 mg PO DAILY 6 days #6 tabs 03/23/22 amoxicillin 875 mg-potassium 1 tab PO Q12H #20 tabs 03/29/22 clavulanate 125 mg tablet benzonatate 100 mg capsule 100 mg PO BID PRN cough #20 caps 03/29/22 fluticasone propionate 50 1 spray intranasal BID #16 grams 03/29/22 mcg/actuation nasal spray,suspension (Flonase Allergy Relief) loratadine 10 mg tablet (Claritin) 10 mg PO DAILY PRN allergy 03/29/22 symptoms #30 tabs acetaminophen 500 mg tablet 500 mg PO Q6H PRN fever or pain 04/01/22 (Tylenol Extra Strength) #14 tabs lidocaine 5 % topical patch 1 patch topical DAILY PRN pain #30 04/01/22 (Lidoderm) ea naproxen 500 mg tablet 500 mg PO BID PRN pain 10 days #20 04/01/22 tabs tramadol 50 mg tablet 50 mg PO Q8H PRN pain, severe #9 04/01/22 tabs Allergies Allergy/AdvReac Type Severity Reaction Status Date / Time formaldehyde [FORMALDEHYDE] Allergy Unknown HIVES Verified 03/29/22 11:30 a steroid cream; he is not Allergy Unknown Unknown Uncoded 03/23/22 12:53 dimit[employer] Allergy Unknown Unknown Uncoded 03/23/22 12:53 Review of Systems Review of Systems: Constitutional: No Fever, No Chills ENT/Mouth: No Ear Pain, No Nasal Congestion, No Sinus Pain, No Hoarseness, No sore throat, No Rhinorrhea, No Swallowing Difficulty Cardiovascular: No Chest Pain, No SOB Respiratory: No Cough, No Sputum, No Wheezing Gastrointestinal: No Nausea, No Vomiting, No Diarrhea, No Constipation, No Abdominal pain Genitourinary: No Dysuria, No Urinary Frequency, No Hematuria, No Urinary Incontinence/retention, No Urgency, No Flank Pain Musculoskeletal: + joint pain, No Myalgias, No Joint Swelling Skin: No Skin Lesions, No rash Neuro: No Weakness, No Numbness, + Paresthesias Yes all other systems are reviewed and are negative Neurologic: Denies Sensory deficit (Neuro) [facility] Past Medical History Attestation statement: The following information was validated with the patient. Medical History COPD (chronic obstructive pulmonary disease) Deformity of left hand Diverticulosis Rectus diastasis Skin cancer Smoker Umbilical hernia Surgical History History of left hip replacement Family History Family History Father Unknown family medical history Mother No problems noted. Social History Social History Housing: House Alcohol intake: never Patient Tobacco Use Status: Current everyday Tobacco user Tobacco use type: Cigarette Cigarettes Per Day: 10 Years Smoked: 40 years e-Cigarette/Vaping Use: Never Used Advance Directives: No Advance Directives Information Provided: No Cognitive needs: No Hearing needs: No Vision needs: Yes Physical Exam Vital Signs: Vital Signs: Last Vital Signs Temp 98.2 F 04/01/22 15:19 Pulse 80 04/01/22 15:19 Resp 17 04/01/22 17:25 BP 153/63 H 04/01/22 15:19 Pulse Ox 94 04/01/22 15:19 O2 Del Method 04/01/22 15:19 BMI result Body Mass Index 31.0 Const: General: cooperative, healthy appearing and no acute distress Orientation/consciousness: patient oriented x3 Limitations: no limitations HEENT: Head: Yes normal to inspection and Yes atraumatic Ears: hearing grossly normal bilaterally General nose exam: Normal external nose present Face and sinus: Yes normal facial exam Eyes: General: appearance normal, both eyes and all related structures EOM: EOMs intact bilaterally Neck: Neck: Yes normal visual inspection and Yes no meningeal signs Resp: Effort & Inspection: normal respiratory effort and no respiratory distress Cardio: Rate: regular rate Heart sounds: S1 normal heart sound present and S2 normal heart sound present Peripheral pulses: dorsalis pedis present GI: Inspection: Yes normal to inspection Palpation (GI): Soft to palpation, nontender, no guarding and not rigid Back/Spine/Pelvis: Other: No midline thoracic/lumbar spinous tenderness/step-off or deformity. + right- sided lower lumbar MSK/paraspinal and right buttock tenderness to palpation reproducing subjective complaint. No right hip tenderness. Full range of motion intact hip. Pelvis stable. NV intact distally Skin: Rashes: no rashes Wounds: no wounds Neuro: Other: Strength intact throughout. No saddle anesthesia. Sensation intact to light touch. Neurovascular intact distally General: patient oriented x3, tone normal, no meningeal signs and no focal motor deficits Gait exam (Neuro): Normal gait present Motor exam (neuro): 5/5 motor strength present throughout Sensory Exam: No Sensory deficit (Neuro) Extrem: General: Yes normal to inspection Course Course Course Narrative: -of note patient had lumbar x-rays on 03/24/2022 showing multilevel degenerative disc changes as well as borderline wedging vertebral bodies T12 and L1. At that time was prescribed Flexeril and prednisone by PCP 1636--XR hip RT w PEL1V IMPRESSION: ? No acute finding. ? Mild to moderate osteoarthritis of the right hip. > results discussed with patient including worrisome signs and symptoms and strict return precautions and need to close follow-up with Neurosurgery. He verbalized understanding and feel safe for discharge home MDM - Extremity (Nontraumatic) MDM Narrative Medical decision making narrative: 71-year-old male with a past medical history of COPD, diverticulosis, presenting to the ED complaining of right hip/buttock pain radiating down RLE since this morning s/p lifting heavy water pale. On exam vital signs stable, NAD, nontoxic appearing, no midline spinous tenderness throughout, no red flag symptoms. Concerns for MSK spasming/strain vs sciatica/radiculopathy. Unlikely fracture/dislocation, cauda equina/cord compression or epidural abscess Plan: Hip/pelvis XR, pain management Medical Records Attestation: I reviewed the patient's medical records. Lab Data Attestation: I reviewed the patient's lab results. Discharge Plan Discharge Clinical Impression: Right lumbar radiculopathy Patient Disposition: Home, Self-Care Instructions: Lumbar Radiculopathy (ED) Additional Instructions: the x-rays of her hip and pelvis show osteoarthritis. The previous x-rays of her back from earlier in the month showed degenerative disc disease. This is likely the etiology of her pain, you need to follow-up with the specialists, neurosurgery Call tomorrow to make an appointment. Continue taking previously prescribed muscle relaxer, Flexeril Naproxen as an anti-inflammatory / pain medication, take with food Lidoderm patches are numbing patches, apply to painful area Tramadol as an opiate pain medication, take only when pain is severe for the next 3 days, do not drive, drink alcohol, or operate machinery while taking In addition take Tylenol at home If symptoms persist or worsen, pain becomes unbearable, you developed urinary retention or incontinence, or weakness return to the ED Prescriptions: New lidocaine [Lidoderm] 5 % adhesive patch,medicated 1 patch topical DAILY MDD remove after 12 hours PRN (Reason: pain) Qty: 30 0RF Rx Instructions: leave on most painful area for up to 12 hrs acetaminophen [Tylenol Extra Strength] 500 mg tablet 500 mg PO Q6H PRN (Reason: fever or pain) Qty: 14 0RF naproxen 500 mg tablet 500 mg PO BID PRN (Reason: pain) 10 Days Qty: 20 0RF tramadol 50 mg tablet 50 mg PO Q8H PRN (Reason: pain, severe) Qty: 9 0RF No Action nystatin 100,000 unit/gram powder 1 appl topical DAILY PRN (Reason: dermatitis) 30 Days Qty: 60 2RF Incruse Ellipta 62.5 mcg/actuation blister with device 1 inh inhalation DAILY 30 Days Qty: 30 3RF atorvastatin 20 mg tablet 20 mg PO BEDTIME Qty: 90 2RF loratadine [Claritin] 10 mg tablet 10 mg PO DAILY PRN (Reason: allergy symptoms) Qty: 30 0RF benzonatate 100 mg capsule 100 mg PO BID PRN (Reason: cough) Qty: 20 0RF amoxicillin-pot clavulanate 875-125 mg tablet 1 tab PO Q12H Qty: 20 0RF fluticasone propionate [Flonase Allergy Relief] 50 mcg/actuation spray,suspension 1 spray intranasal BID Qty: 16 0RF Rx Instructions: administer into each nostril finasteride 5 mg tablet 5 mg PO BEDTIME tamsulosin 0.4 mg capsule 0.4 mg PO DAILY amoxicillin 500 mg capsule 500 mg PO Q12H 7 Days Qty: 14 0RF cyclobenzaprine 10 mg tablet 10 mg PO BEDTIME PRN (Reason: muscle spasm) 15 Days Qty: 15 0RF prednisone 50 mg tablet 50 mg PO DAILY 6 Days Qty: 6 0RF Referrals: Efraín Perry FNP- [Primary Care Provider] - 2 days Heydi Ellis MD [Physician] - Interventions: ED Discharge Assessment Last Done: 04/01/22 17:23 Discharge Date/Time: 04/01/22 17:32
[2022-04-01] MEDS: oxyCODONE HCl Immed Release 5 MG TABLET PO (16:24)
[2022-04-01] MEDS: Ketorolac Tromethamine 30 MG/ML VIAL IM (16:27)
[2022-04-01] MEDS: Lidocaine 4 % Patch ADH..PATCH 1 PATCH TRANSDERMA (16:27)
[2022-04-01 17:25] VITALS: RESP 17
== END 2022-04-01 17:32 | disposition home or self-care (01) ==
PROVIDERS: Emergency Provider Emergency Medicine; PCP Nurse Practitioner Family
DX: M54.16 Radiculopathy, lumbar region (principal); M25.551 Pain in right hip; M54.50 Low back pain, unspecified; Z79.899 Other long term (current) drug therapy
CPT/HCPCS: 73502; 96372; 99284; J1885

== ENCOUNTER → 2022-08-27 08:03 | Outpatient (REF) | payer MEDICARE, SELFPAY ==
--- NOTE | 2022-08-27 08:08 | CA_ITS ---
Transthoracic Echocardiogram Patient (Last, First, Middle): Ponce Fitzpatrick R Gender: Male Date of : 1950 Age: 72 Procedure Date: 08/27/2022 Procedure Type: Transthoracic Echocardiogram Location: OP Height: 175.26 cm Weight: 95.26 kg BSA: 2.11 m2 Heart Rate: bpm BP: 132 / 60 mmHg Process Safety Engineering Technologist: HYACINTH Referring MD: Froylan Galvan MD Propellant Charge Loader: Adam Whyte MD Symptoms: I35.0 - Nonrheumatic aortic (valve) stenosis Study Quality: Adequate ECG Rhythm: Sinus Conclusions: - 1. Severe aortic stenosis with mean gradient of 48 mmHg and valve area 0.86 centimeters sq 2. Normal LV systolic function with moderate LVH with impaired relaxation filling pattern 3. Mildly dilated left atrium 4. Normal RV systolic pressure 5. No gross pericardial effusion Findings Left Ventricle Normal left ventricular size and systolic function. There is moderately increased left ventricular wall thickness. The visually estimated ejection fraction is between 60-65%. Spectral Doppler is indicative of an impaired relaxation filling pattern. E/E prime ratio is between 8 and 15 consistent with indeterminate filling pressures. Peak GLS i -17.6%, within normal limits. Right Ventricle Normal right ventricular cavity size and systolic function. Atria The left atrium is mildly dilated. There is no evidence of interatrial shunt. The right atrium is normal in size. Aortic Valve There is moderate calcification of the aortic valve. There is moderate thickening of the aortic valve. There is severe aortic valve stenosis. The peak aortic gradient is 73 mmHg.The mean gradient is 48 mmHg. The aortic valve area is 0.86 cm2. There is mild aortic valve regurgitation. Mitral Valve There is mild anterior and posterior mitral leaflet thickening. There is mild mitral annular calcification. There is trace mitral valve regurgitation. There is no mitral valve stenosis. Pulmonic Valve The pulmonic valve was not well visualized. Tricuspid Valve Normal tricuspid valve structure. There is trace tricuspid valve regurgitation. The right ventricular systolic pressure is normal. The right ventricular systolic pressure is 21 mmHg. Normal right atrial pressure. There is no evidence of pulmonary hypertension. Great Vessels All visible segments of the aorta are normal in size. The pulmonary artery was not well visualized. Venous The inferior vena cava is normal in size and collapses greater than 50% with inspiration. Pericardium/Pleural There is no evidence of pericardial effusion. Prior Study Comparison Changes noted compared to prior study dated: 02/06/2022. Aortic stenosis is severe Measurements 2D Linear Measurements IVSd: 1.44 0.6-0.9/0.6-1.0 cm LVIDd: 4.66 3.9-5.3/4.2-5.9 cm LVIDd Index: 2.21 2.4-3.2/2.2-3.1 cm/m2 LVIDs: 2.93 2.0-3.6 cm LVPWd: 1.52 0.7-1.1 cm LA Diam: 4.40 2.7-3.8/3.0-4.0 cm LAIDs Index: 2.09 1.5-2.3 cm/m2 LV Mass: 354.91 67-162/88-224 g LV Mass Index: 168.20 43-95/49-115 g/m2 LVOT Diam: 2.30 3.0+(-)1.3 cm 2D Systolic Function EF 4C: 63.90 >55% EF 2C: 62.00 >55% EF BiP: 61.40 >55% Mitral Valve MV Pk E: 0.85 MV PK A: 1.03 MV Decel Time: 278.00 E/A: 0.80 E'Lateral: 5.77 E'Medial: 5.00 E/E' Med: 17.10 E/E' Lat: 14.80 PHT: 81.00 MVA PHT: 2.72 Decel [place]: 3.07 Aortic Valve AoV Pk Kane: 4.28 AoV Mn Kane: 3.33 AoV VTI: 1.27 AoV Pk Grad: 73.00 Aov Mn Grad: 48.00 JULIO Cont.VTI: 0.86 LVOT LVOT Pk Kane: 0.94 LVOT Mn Kane: 0.68 LVOT VTI: 0.26 LVOT Pk Grad: 4.00 LVOT Mn Grad: 2.00 LVOT Diam: 2.30 LVOT Area: 4.15 Diastolic Function MV Pk E: 0.85 MV Pk A: 1.03 E/A: 0.80 E'Medial: 5.00 E/E' Med: 17.10 E' Laterial: 5.77 E/E' Lat: 14.80 Right Ventricle TAPSE (mm): 25.30 TVS' Kane: 14.50 Tricuspid Valve TR Pk Kane: 2.10 TR Pk Grad: 18.00 RA Press: 3.00 RVSP: 21.00 Great Vessels Aorta Ao Asc: 3.00 2.1-3.4 cm Updated in Other Vendor System with Status of Final Adam Whyte MD electronically signed on 08/28/2022 1:00:57 PM with status of Final
== END ==
LOC: HO.CARD 08:03
PROVIDERS: Visit Provider Internal Medicine
DX: I35.0 Nonrheumatic aortic (valve) stenosis (principal)
CPT/HCPCS: 93306; 93356

== ENCOUNTER → 2022-09-10 09:10 | Outpatient (BNVA) | payer MEDICARE, SELFPAY | PROVIDERS: PCP Nurse Practitioner Family; Referring Provider Nurse Practitioner Family; Visit Provider Internal Medicine | DX: I35.0 Nonrheumatic aortic (valve) stenosis (principal); I10 Essential (primary) hypertension | CPT/HCPCS: 99212 ==

== ENCOUNTER 2022-10-08 06:10 | Outpatient (REF) | payer MEDICARE, SELFPAY ==
[2022-10-08 11:17] LABS: Hematocrit 45.6 % (42.0-52.0); Hemoglobin 14.6 g/dl (14.0-18.0); Mean Corpuscular Hemoglobin 28.8 pg (27.0-33.0); Mean Corpuscular Volume 89.9 fL (80.0-98.0); Platelet Count 209 X10*3/uL (160-400); Red Blood Count 5.07 X10*6/uL (4.60-5.80); Red Cell Distribution Width 13.6 % (11.0-16.0); White Blood Count 7.1 X10*3/uL (4.8-10.8)
[2022-10-08 11:40] LABS: Anion Gap 9 (12-20); Blood Urea Nitrogen 22 mg/dL (9-16); Calcium 9.7 mg/dL (8.4-10.2); Carbon Dioxide 32 mmol/L (22-29); Chloride 106 mmol/L (96-108); Estimated Glomerular Filt Rate > 60; Glucose Random 98 mg/dL (60-115); Potassium 4.9 mmol/L (3.3-5.1); Sodium 142 mmol/L (135-145)
[2022-10-08 12:18] LABS: Vitamin D 25-OH Total 83.1 ng/mL (>30)
[2022-10-08 12:37] LABS: Prothrombin Time 11.7 SEC (10.0-13.1)
== END 2022-10-08 06:11 | disposition home or self-care (01) ==
LOC: HO.HMGCLDS 06:10
PROVIDERS: PCP Nurse Practitioner Family; Visit Provider Internal Medicine
DX: I35.0 Nonrheumatic aortic (valve) stenosis (principal); I25.10 Atherosclerotic heart disease of native coronary artery without angina pectoris; E55.9 Vitamin D deficiency, unspecified
CPT/HCPCS: 36415; 80048; 82306; 85027; 85610

== ENCOUNTER 2022-11-02 06:28 | Outpatient (REF) | payer MEDICARE, SELFPAY ==
[2022-11-02 11:37] LABS: MANUAL DIFF FLAG NO
[2022-11-02 11:55] LABS: Basophils Absolute Auto 0.1 X10*3/uL (0.0-0.2); Basophils Percent Auto 1.1 % (0-2); Eosinophils Absolute Auto 0.7 X10*3/uL (0.0-0.4); Eosinophils Percent Auto 8.1 % (0-4); Hemoglobin 13.5 g/dl (14.0-18.0); Imm Gran Abs Auto 0.03 X10*3/uL (0.00-0.03); Imm Gran Pct Auto 0.4 % (0.0-0.4); Lymphocytes Absolute Auto 2.7 X10*3/uL (1.2-4.9); Lymphocytes Percent Auto 32.3 % (20-40); Mean Corpuscular HGB Conc 32.9 g/dl (31.0-36.0); Mean Corpuscular Hemoglobin 29.5 pg (27.0-33.0); Mean Corpuscular Volume 89.5 fL (80.0-98.0); Mean Platelet Volume 11.1 fL (9.4-12.4); Monocytes Absolute Auto 0.8 X10*3/uL (0.1-1.2); Neutrophils Absolute Auto 4.1 x10*3/uL (2.0-8.3); Neutrophils Percent Auto 48.1 % (45-73); Platelet Count 242 X10*3/uL (160-400); Prothrombin Time 11.5 SEC (10.0-13.1); Red Blood Count 4.58 X10*6/uL (4.60-5.80); Red Cell Distribution Width 13.5 % (11.0-16.0); White Blood Count 8.4 X10*3/uL (4.8-10.8)
[2022-11-02 13:05] LABS: Anion Gap 12 (12-20); Blood Urea Nitrogen 19 mg/dL (9-16); Calcium 9.3 mg/dL (8.4-10.2); Carbon Dioxide 28 mmol/L (22-29); Chloride 105 mmol/L (96-108); Estimated Glomerular Filt Rate > 60; Glucose Random 101 mg/dL (60-115); Potassium 4.3 mmol/L (3.3-5.1); Sodium 141 mmol/L (135-145)
== END 2022-11-02 06:29 | disposition home or self-care (01) ==
LOC: HO.HMGCLDS 06:28
PROVIDERS: PCP Nurse Practitioner Family; Visit Provider Internal Medicine
DX: Z01.812 Encounter for preprocedural laboratory examination (principal)
CPT/HCPCS: 36415; 80048; 85025; 85610

== ENCOUNTER → 2022-11-19 12:31 | Outpatient (BNVA) | payer MEDICARE, SELFPAY | PROVIDERS: PCP Nurse Practitioner Family; Referring Provider Nurse Practitioner Family; Visit Provider Nurse Practitioner Family | DX: Z51.89 Encounter for other specified aftercare (principal); I35.0 Nonrheumatic aortic (valve) stenosis; Z98.890 Other specified postprocedural states | CPT/HCPCS: 99212 ==

== ENCOUNTER → 2022-12-17 14:08 | Outpatient (BNVA) | payer MEDICARE, SELFPAY | PROVIDERS: PCP Nurse Practitioner Family; Referring Provider Nurse Practitioner Family; Visit Provider Nurse Practitioner Family | DX: I35.0 Nonrheumatic aortic (valve) stenosis (principal); I25.10 Atherosclerotic heart disease of native coronary artery without angina pectoris; I10 Essential (primary) hypertension; Z98.890 Other specified postprocedural states | CPT/HCPCS: 93005; 99212 ==

== ENCOUNTER 2023-01-03 09:26 | Emergency (ER) | payer MEDICARE, SELFPAY ==
--- NOTE | ~2023-01-03 | XR_ITS ---
EXAMINATION: XR HIP, LEFT CLINICAL INFORMATION: Atraumatic left hip pain. COMPARISON: None available. TECHNIQUE: Two views of the left hip. AP pelvis one view FINDINGS: There is a total left hip prosthesis mild reduction in the right hip joint space is seen. No acute fracture or dislocation seen. The SI joints are symmetrical. AP and frog-leg views reveal no periprosthetic loosening or fracture. No dislocation. No bony abnormality. XR/XR hip LT w PEL1V IMPRESSION: 1. Total left hip prosthesis in satisfactory alignment. No periprosthetic loosening or fracture seen. 2. Mild degenerative changes right hip joint.
[2023-01-03 09:39] VITALS: BP 147/52; PULSE 84; RESP 18; TEMP 36.6; O2SAT 98; BMI 31.8
[2023-01-03] MEDS: hydrOXYzine HCL 50 MG TABLET PO (10:47)
[2023-01-03] MEDS: predniSONE 20 MG TABLET 60 MG PO (10:47)
--- NOTE | 2023-01-03 11:10 | ED.EXTPRO ---
HPI - Extremity Problem General Chief complaint: General Medical Stated complaint: L hip pain/Rash Time Seen by Provider: 01/03/23 10:00 Source: patient Mode of arrival: ambulatory Limitations: no limitations History of Present Illness HPI Narrative: 72yoM with a PMHx of COPD, diverticulosis and arthritis who had a left hip replacement years ago with presenting to the ER with complaints of left hip pain that has been atraumatic over the past few days worse today. Reports that his hip and his back has been hurting therefore he had a massage on Wednesday and a massage person use olive oil and patient reports there was components in the olive oil that he must be allergic to due to he developed a rash throughout his entire back and his legs anywhere where the olive oil was used. Otherwise he denies any fevers, chills, paresthesias, recent falls or trauma, chest pain or shortness of breath, dyspnea on exertion, orthopnea, lower extremity edema, calf tenderness, recent travel, sore throat, wheezing, nausea/vomiting/diarrhea or any other symptoms complaints concerns at this time. MD Complaint: joint pain Onset (ago): day(s) (Past few days worse today) Pain Consistency: constant Location: left and lower extremity (Hip) Quality: aching Radiation: distal Relieving factors: nothing Exacerbating factors: range of motion, weight bearing, walking, exertion and palpation Associated symptoms: rash (Also reports of rash that is separate from the hip pain after having all avoidable rubbed on his body from a massage) Related Data Home Medications Medication Instructions Recorded Confirmed finasteride 5 mg tablet 5 mg PO BEDTIME 08/08/20 12/17/22 cholecalciferol (vitamin D3) 125 125 mcg PO DAILY 07/29/22 12/17/22 mcg (5,000 unit) capsule tamsulosin 0.4 mg capsule 0.4 mg PO DAILY 07/29/22 12/17/22 Previous Rx's Medication Instructions Recorded losartan 100 mg tablet 100 mg PO DAILY #90 tabs 11/13/22 amlodipine 5 mg tablet 10 mg PO DAILY #180 tabs 12/17/22 aspirin 81 mg tablet,delayed 81 mg PO DAILY #90 tabs 12/17/22 release naproxen 500 mg tablet 500 mg PO BID PRN pain 30 days #60 12/20/22 tabs gabapentin 300 mg capsule 300 mg PO TID 30 days #90 caps 12/22/22 atorvastatin 40 mg tablet 40 mg PO BEDTIME 90 days #90 tabs 12/30/22 nystatin 100,000 unit/gram topical 1 appl topical DAILY #30 grams 12/30/22 powder hydrocortisone 2.5 % topical 1 appl topical QD-TID PRN skin 01/03/23 ointment irritation #454 grams prednisone 20 mg tablet 40 mg PO DAILY inflammation 5 days 01/03/23 #10 tabs Allergies Allergy/AdvReac Type Severity Reaction Status Date / Time formaldehyde [FORMALDEHYDE] Allergy Unknown HIVES Verified 01/03/23 09:38 a steroid cream; he is not Allergy Unknown Unknown Uncoded 01/03/23 09:38 [address] [employer] Allergy Unknown Unknown Uncoded 01/03/23 09:38 Review of Systems Review of Systems: Constitutional : No Weight loss, No Fever, No Chills, No Night Sweats, No Fatigue, No Malaise ENT/Mouth : No Hearing loss, No Ear Pain, No Nasal Congestion, No Sinus Pain, No Hoarseness, No sore throat, No Rhinorrhea, No Swallowing Difficulty Eyes: No Eye Pain, No Swelling, No Redness, No Foreign Body, No Discharge, No Vision Changes Cardiovascular : No Chest Pain, No SOB, No Dyspnea on Exertion, No Orthopnea, No Edema, No Palpitations Respiratory : No Cough, No Sputum, No Wheezing, No Smoke Exposure, No Dyspnea Gastrointestinal : No Nausea, No Vomiting, No Diarrhea, No Constipation, No abdominal Pain, No Hematochezia, No Melena Genitourinary : no irregular bleeding, No Dysuria, No Urinary Frequency, No Hematuria, No Urinary Incontinence, No Urgency, No Flank Pain, No Urinary Flow Changes, No Hesitancy Musculoskeletal : left hip joint pain, No Myalgias, No Joint Swelling Skin : No Skin Lesions, + rash Neuro : No Weakness, No Numbness, No Paresthesias, No Loss of Consciousness, No Dizziness, No Headache Psych : No Anxiety/Panic, No Depression, No SI/HI/AH/VH, No Social Issues, Heme/Lymph: No Bruising, No Bleeding,No Lymphadenopathy Endocrine : No Polyuria, No Polydipsia, No Temperature Intolerance Yes all other systems are reviewed and are negative PMFSH Past Medical History Attestation statement: The following information was validated with the patient. Source: old records reviewed and nursing notes reviewed Medical History COPD (chronic obstructive pulmonary disease) Deformity of left hand Diverticulosis Non-rheumatic aortic stenosis Rectus diastasis Severe aortic stenosis Skin cancer Smoker Systolic murmur Umbilical hernia Surgical History History of left hip replacement S/P cardiac catheterization Family History Family History Father Unknown family medical history Mother No problems noted. Social History Social History Housing: House Alcohol intake: never Patient Tobacco Use Status: Current everyday Tobacco user Tobacco use type: Cigarette Cigarettes Per Day: 15 Years Smoked: 40 years e-Cigarette/Vaping Use: Never Used Second Hand Smoke Exposure: No Advance Directives: No Advance Directives Information Provided: No Cognitive needs: No Hearing needs: No Vision needs: Yes Physical Exam Vital Signs: Vital Signs: Last Vital Signs Temp 98 F 01/03/23 09:39 Pulse 84 01/03/23 09:39 Resp 18 01/03/23 09:39 BP 147/52 H 01/03/23 09:39 Pulse Ox 98 01/03/23 09:39 O2 Del Method Room Air 01/03/23 09:39 BMI result Body Mass Index 31.8 vital signs have been reviewed as normal and appeared to be correct. Blood pressure normal. Heart rate normal. Respiration rate normal. Temperature normal. Oxygen saturation normal. Appearance: Alert. Oriented X3. No acute distress. Head: Normal external exam. Normocephalic. Atraumatic. No Burrows signs noted. No raccoon eyes noted Eyes: PERRLA. EOMI. Conjunctiva and sclera normal. Eyelids normal. ENT: EAC normal. TM's Normal. Pharynx normal. Uvula midline. Moist mucous membranes. No trismus noted. No drooling noted. No muffled voice noted. Neck: Normal inspection. Neck supple. FROM. No adenopathy. Thyroid Normal. No meningeal signs. No neck mass noted. CVS: Normal heart rate and rhythm. Heart sound normal. No murmurs noted. Pulses normal throughout. Respiratory: No respiratory distress. Painless inspiration. Breath sounds normal. No wheezes/rales/rhonchi noted. Chest nontender. No accessory muscle usage noted or decreased air movement noted. Abdomen: Soft and nontender. Bowel sounds normal in all 4 quadrants. No distention noted. No organomegaly noted. No visible injury noted. Back: No CVA tenderness. Full range of motion noted. No obvious deformities, or edema. Mild para-spinal muscular tenderness from left hip to lumbar region to coccyx. Full ROM in back and lower extremities. 5/5 strength hip extension/flexion, abduction, adduction. Mild Lumbar pain with hip flexion against resistance. Straight leg raise test negative on right; Straight leg raise test negative on left; Reflexes normal ankle and knee bilaterally; EHL motor strength normal bilaterally. No rashes/lesion/induration/fluctuance or signs infection noted. Skin: Skin warm and dry. Normal skin color. Normal skin turgor. Patient with macular papular eczematous appearing rash consistent with contact dermatitis. No additional rashes/lesions/lacerations noted. Extremities: No lower extremity edema. Extremities exhibit normal range of motion. Extremities nontender. Neuro: Oriented X 3. No motor deficit. No sensory deficit. Reflexes normal. Patient has a normal steady gait. Course Course Course Narrative: Pt c likely muscular pain, but could be herniated disc. Neuro exam shows no deficits. Not c/w AAA/epidural abscess/dissection.No high risk Hx (Incont, fever, immunosupp, recent surgery/LP, coag, signif trauma, wt loss, puls mass, hx/o Ca, TB, or IVDU) to warrant MRI/CT today. Not c/w Pyelo/UTI/kidney stone/spinal fx. Not cauda equina syndrome. X-ray obtained and negative for any acute processes of the left hip. Patient also has contact dermatitis. Will DC home with prednisone and hydrocortisone for his contact dermatitis and instructions return if any new or worsening symptoms. Patient understands agrees with this plan. Medications Administered Discontinued Medications Generic Name Dose Route Start Last Admin Trade Name Freq PRN Reason Stop Dose Admin Hydroxyzine HCl 50 mg 01/03/23 10:20 01/03/23 10:47 Hydroxyzine Hcl 50 Mg Tablet PO 01/03/23 10:21 50 mg ONCE ONE Administration Prednisone 60 mg 01/03/23 10:20 01/03/23 10:47 Prednisone 20 Mg Tablet PO 01/03/23 10:21 60 mg ONCE ONE Administration Medical Decision Making Independent Interpretation I performed an independent interpretation of an: Plain X-Ray (X-ray of left hip reviewed by myself agreeable radiologist report) Radiology Impression Discussion of test interpretation with radiology: I have reviewed the radiologist's reading. Radiologist Impression: FINDINGS: There is a total left hip prosthesis mild reduction in the right hip joint space is seen. No acute fracture or dislocation seen. The SI joints are symmetrical. AP and frog-leg views reveal no periprosthetic loosening or fracture. No dislocation. No bony abnormality. XR/XR hip LT w PEL1V IMPRESSION: 1.? Total left hip prosthesis in satisfactory alignment. No periprosthetic loosening or fracture seen. 2.? Mild degenerative changes right hip joint. Discharge Plan Discharge Clinical Impression: Strain of right hip, Allergic reaction Patient Disposition: Home, Self-Care Instructions: Muscle Strain (ED), General Allergic Reaction (ED) Prescriptions: New prednisone 20 mg tablet 40 mg PO DAILY 5 Days Qty: 10 0RF hydrocortisone 2.5 % ointment 1 appl topical QD-TID PRN (Reason: skin irritation) Qty: 454 0RF No Action losartan 100 mg tablet 100 mg PO DAILY Qty: 90 3RF naproxen 500 mg tablet 500 mg PO BID PRN (Reason: pain) 30 Days Qty: 60 0RF gabapentin 300 mg capsule 300 mg PO TID 30 Days Qty: 90 0RF finasteride 5 mg tablet 5 mg PO BEDTIME tamsulosin 0.4 mg capsule 0.4 mg PO DAILY cholecalciferol (vitamin D3) 125 mcg (5,000 unit) capsule 125 mcg PO DAILY atorvastatin 40 mg tablet 40 mg PO BEDTIME 90 Days Qty: 90 3RF nystatin 100,000 unit/gram powder 1 appl topical DAILY Qty: 30 1RF aspirin 81 mg tablet,delayed release (DR/EC) 81 mg PO DAILY Qty: 90 1RF amlodipine 5 mg tablet 10 mg PO DAILY Qty: 180 1RF Rx Instructions: TAKE 2 TABLET DAILY Referrals: Efraín Perry, CHEMISTRY ACCOUNT MANAGER-BC [Primary Care Provider] - 2 days (as needed)
== END 2023-01-03 11:25 | disposition home or self-care (01) ==
PROVIDERS: Emergency Provider Emergency Medicine; PCP Nurse Practitioner Family
DX: S76.012A Strain of muscle, fascia and tendon of left hip, initial encounter (principal); S76.011A Strain of muscle, fascia and tendon of right hip, initial encounter; L50.0 Allergic urticaria; X58.XXXA Exposure to other specified factors, initial encounter; Y93.9 Activity, unspecified; Y92.9 Unspecified place or not applicable; Y99.9 Unspecified external cause status; F17.210 Nicotine dependence, cigarettes, uncomplicated; Z71.6 Tobacco abuse counseling; Z79.899 Other long term (current) drug therapy
CPT/HCPCS: 73502; 99283

== ENCOUNTER 2023-02-25 08:00 | Outpatient (RCR) | payer MEDICARE, SELFPAY ==
--- NOTE | 2023-01-19 10:04 | MHC.PT.EP ---
[facility] [place] Office [place] Office [place] Office [address] [phone] F: [phone] F: [phone] F: [phone] F: [phone] Physical Therapy Plan of Care Date of Evaluation: Date of Surgery: none. Diagnosis: Pain in R shoulder Assessment: Patient is a 72 year old R handed male who presents with s/s consistent with R shoulder pain. 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 Patient past medical history includes loss of fingers, and he is currently being worked up for possible cardiac surgery. Current impairments include pain, posture, ROM, strength, activity tolerance and functional mobility. Functional limitations include decreased ability to reach, lift, carry, push, pull and dress. Patient is motivated with good rehab potential. Skilled PT will address impairments and functional limitations in order to achieve goals. Frequency and Duration: The patient will be seen 2x/week for 5 weeks Short Term Goals: I with HEP - 2 weeks AROM flexion and scaption WNL - 3 weeks Strength 4/5 grossly for ER/IR - 3 weeks Fpc Goals: SPADI 30/130 or better - 5 weeks Pain free dressing, ADLs - 5 weeks Pain free work and sleeping - 5 weeks Improved postural awareness - 5 weeks Treatment Plan: Modalities to reduce pain, spasms and effusion. Manual therapy to restore motion and function. Therapeutic exercise to improve strength and flexibility. Neuromuscular re-education for posture and balance. Therapeutic activities to return to functional activities of daily living. Electronically signed by: Alan Giles, PT Please sign and return to therapist. Thank you for your referral.
--- NOTE | 2023-03-23 08:12 | MHC.PT.DC ---
[facility] [place] Office [place] Office [place] Office [address] Shona Mendoza [address] [phone] F: [phone] F: [phone] F: [phone] F: [phone] Physical Therapy Discharge Report Diagnosis: Pain in R shoulder Date of Surgery: none. Date of Evaluation: 01/19/23 Date of Discharge: 03/03/23 Treatments to Date: 7 Cancellations to Date: No Shows to Date: Discharge Status: Improved Function Independent with HEP Discharge Summary: 02/25/23: pt is I with HEP. LACHELLE WNL. he is having a heart procedure next week and will d/c to HEP at this time. 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 02/23/23: pt with no pain with program. progressing well overall. continues to note reduced s/s in daily routine. 02/16/23: pt with reduced tenderness in shoulder, still with a little clicking. continue to progress as tolerated. 02/11/23: pt is progressing well. we updated HEP with instructions for performance - strength based. 02/09; Pt ROM is progressing, int rot most restricted. 02/04/23: pt has been feeling a little sore since starting HEP. educated him in possible responses to PT. progressed strength. Patient is a 72 year old R handed male who presents with s/s consistent with R shoulder pain. 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 Patient past medical history includes loss of fingers, and he is currently being worked up for possible cardiac surgery. Current impairments include pain, posture, ROM, strength, activity tolerance and functional mobility. Functional limitations include decreased ability to reach, lift, carry, push, pull and dress. Patient is motivated with good rehab potential. Skilled PT will address impairments and functional limitations in order to achieve goals. Electronically signed by: Alan Giles, PT Please sign and return to therapist. Thank you for your referral.
== END 2023-03-23 08:14 | disposition home or self-care (01) ==
LOC: HO.PTCHIC 08:00
PROVIDERS: PCP Nurse Practitioner Family; Visit Provider Nurse Practitioner Family
DX: M25.511 Pain in right shoulder (principal)
CPT/HCPCS: 97110; 97163

== ENCOUNTER 2023-03-04 08:45 | Outpatient (REF) | payer MEDICARE, SELFPAY ==
[2023-03-04 11:20] LABS: MANUAL DIFF FLAG NO
[2023-03-04 11:35] LABS: Basophils Absolute Auto 0.1 X10*3/uL (0.0-0.2); Basophils Percent Auto 0.6 % (0-2); Eosinophils Absolute Auto 0.2 X10*3/uL (0.0-0.4); Eosinophils Percent Auto 2.9 % (0-4); Hematocrit 39.4 % (42.0-52.0); Hemoglobin 12.6 g/dl (14.0-18.0); Imm Gran Abs Auto 0.03 X10*3/uL (0.00-0.03); Imm Gran Pct Auto 0.4 % (0.0-0.4); Lymphocytes Absolute Auto 1.1 X10*3/uL (1.2-4.9); Lymphocytes Percent Auto 12.7 % (20-40); Mean Corpuscular Hemoglobin 28.9 pg (27.0-33.0); Mean Corpuscular Volume 90.4 fL (80.0-98.0); Mean Platelet Volume 10.8 fL (9.4-12.4); Monocytes Absolute Auto 1.1 X10*3/uL (0.1-1.2); Monocytes Percent Auto 13.1 % (2-11); Neutrophils Absolute Auto 5.8 x10*3/uL (2.0-8.3); Neutrophils Percent Auto 70.3 % (45-73); Red Blood Count 4.36 X10*6/uL (4.60-5.80); Red Cell Distribution Width 14.3 % (11.0-16.0); White Blood Count 8.3 X10*3/uL (4.8-10.8)
[2023-03-04 11:47] LABS: Alanine Aminotransferase 23 U/L (0-40); Albumin Level 3.8 g/dL (3.5-5.0); Alkaline Phosphatase 65 U/L (39-117); Anion Gap 13 (12-20); Aspartate Amino Transferase 32 U/L (5-37); Bilirubin Total 0.8 mg/dL (0.0-1.0); Blood Urea Nitrogen 16 mg/dL (9-16); Calcium 9.5 mg/dL (8.4-10.2); Carbon Dioxide 29 mmol/L (22-29); Chloride 106 mmol/L (96-108); Estimated Glomerular Filt Rate > 60; Glucose Random 159 mg/dL (60-115); Potassium 4.5 mmol/L (3.3-5.1); Sodium 143 mmol/L (135-145); Total Protein 6.3 g/dL (6.5-8.0)
[2023-03-04 12:14] LABS: Platelet Count 152 X10*3/uL (160-400)
== END 2023-03-04 08:46 | disposition home or self-care (01) ==
LOC: HO.HMGCLDS 08:45
PROVIDERS: PCP Nurse Practitioner Family; Visit Provider Nurse Practitioner Family
DX: I10 Essential (primary) hypertension (principal)
CPT/HCPCS: 36415; 80053; 85025

== ENCOUNTER → 2023-03-25 09:46 | Outpatient (REF) | payer MEDICARE, SELFPAY ==
--- NOTE | 2023-03-25 09:53 | CA_ITS ---
Transthoracic Echocardiogram Patient (Last, First, Middle): Ponce Fitzpatrick R Gender: Male Date of : 1950 Age: 72 Procedure Date: 03/25/2023 Procedure Type: Transthoracic Echocardiogram Location: OP Height: 175.26 cm Weight: 99.79 kg BSA: 2.15 m2 Heart Rate: 59 bpm BP: 125 / 55 mmHg Solderer Dipper: YEFRI Referring MD: Froylan Galvan MD Symptoms: I25.10 - Atherosclerotic heart disease of [place] coronary artery without... Study Quality: Adequate ECG Rhythm: Bradycardia Conclusions: - 1. Normal LV systolic function with mild LVH with impaired relaxation filling pattern 2. Bioprosthetic aortic valve in place with mean gradient of 16 mmHg, with normal function 3. No gross pericardial effusion Findings Left Ventricle Normal left ventricular size and systolic function. There is mildly increased left ventricular wall thickness. The visually estimated ejection fraction is between 60-65%. Spectral Doppler is indicative of an impaired relaxation filling pattern. E/E prime ratio is between 8 and 15 consistent with indeterminate filling pressures. Peak GLS is -17.6%, borderline normal. Right Ventricle Normal right ventricular cavity size and systolic function. Atria The left atrium is likely dilated. There is no evidence of interatrial shunt. The right atrium is normal in size. Aortic Valve A bioprosthetic aortic valve is present. The prosthetic aortic valve appears to be functioning normally. The mean gradient is 16 mmHg. mean gradient across bioprosthetic valve is at 60 mm Hg which is higher than normal but within acceptable limits with normal calculated effective orifice area and normal aortic ejection time Mitral Valve There is mild anterior and posterior mitral leaflet thickening. There is trace mitral valve regurgitation. There is no mitral valve stenosis. Pulmonic Valve The pulmonic valve is likely normal. Tricuspid Valve Normal tricuspid valve structure. Tricuspid regurgitation envelope is inadequate for calculation of right ventricular systolic pressure. Normal right atrial pressure. Great Vessels All visible segments of the aorta are normal in size. The pulmonary artery was not well visualized. Venous The inferior vena cava is normal in size and collapses greater than 50% with inspiration. Pericardium/Pleural There is no evidence of pericardial effusion. Prior Study Comparison Changes noted compared to prior study dated: 08/27/2022. Normally function bioprosthetic aortic valve has replace severe aortic stenosis Measurements 2D Linear Measurements IVSd: 1.21 0.6-0.9/0.6-1.0 cm LVIDd: 4.54 3.9-5.3/4.2-5.9 cm LVIDd Index: 2.11 2.4-3.2/2.2-3.1 cm/m2 LVIDs: 2.78 2.0-3.6 cm LVPWd: 1.24 0.7-1.1 cm LA Diam: 4.30 2.7-3.8/3.0-4.0 cm LAIDs Index: 2.00 1.5-2.3 cm/m2 LV Mass: 257.87 67-162/88-224 g LV Mass Index: 119.94 43-95/49-115 g/m2 LVOT Diam: 2.20 3.0+(-)1.3 cm 2D Systolic Function EF 4C: 63.80 >55% EF 2C: 67.40 >55% EF BiP: 65.00 >55% Mitral Valve MV Pk E: 0.81 MV PK A: 0.99 MV Decel Time: 281.00 E/A: 0.80 E'Lateral: 8.49 E'Medial: 6.31 E/E' Med: 12.80 E/E' Lat: 9.50 PHT: 82.00 MVA PHT: 2.68 Decel [place]: 2.87 Aortic Valve AoV Pk Kane: 2.79 AoV Mn Kane: 1.88 AoV VTI: 0.60 AoV Pk Grad: 31.00 Aov Mn Grad: 16.00 JULIO Cont.VTI: 1.86 LVOT LVOT Pk Kane: 1.25 LVOT Mn Kane: 0.88 LVOT VTI: 0.30 LVOT Pk Grad: 6.00 LVOT Mn Grad: 3.00 LVOT Diam: 2.20 LVOT Area: 3.80 Diastolic Function MV Pk E: 0.81 MV Pk A: 0.99 E/A: 0.80 E'Medial: 6.31 E/E' Med: 12.80 E' Laterial: 8.49 E/E' Lat: 9.50 Right Ventricle TAPSE (mm): 25.30 TVS' Kane: 14.50 Tricuspid Valve RA Press: 3.00 Great Vessels Aorta Sinus of Valsalva: 3.20 2.0-3.5 cm Ao Asc: 3.50 2.1-3.4 cm Pulmonary Valve PV Pk Kane: 1.10 Peak PV Grad: 5.00 Updated in Other Vendor System with Status of Final Adam Whyte MD electronically signed on 03/25/2023 3:00:35 PM with status of Final
== END ==
LOC: HO.CARD 09:46
PROVIDERS: PCP Nurse Practitioner Family; Visit Provider Internal Medicine Interventional Cardiology
DX: I25.10 Atherosclerotic heart disease of native coronary artery without angina pectoris (principal); Z95.4 Presence of other heart-valve replacement
CPT/HCPCS: 93306; 93356

== ENCOUNTER 2023-03-29 06:26 | Outpatient (REF) | payer MEDICARE, SELFPAY ==
[2023-03-29 11:56] LABS: Anion Gap 13 (12-20); Blood Urea Nitrogen 22 mg/dL (9-16); Calcium 9.6 mg/dL (8.4-10.2); Carbon Dioxide 27 mmol/L (22-29); Chloride 109 mmol/L (96-108); Estimated Glomerular Filt Rate > 60; Glucose Random 84 mg/dL (60-115); Potassium 3.8 mmol/L (3.3-5.1); Sodium 145 mmol/L (135-145)
== END 2023-03-29 06:27 | disposition home or self-care (01) ==
LOC: HO.HMGCLDS 06:26
PROVIDERS: PCP Nurse Practitioner Family; Visit Provider Internal Medicine
DX: E78.5 Hyperlipidemia, unspecified (principal); I35.0 Nonrheumatic aortic (valve) stenosis
CPT/HCPCS: 36415; 80048

== ENCOUNTER 2023-03-30 11:20 | Outpatient (REF) | payer MEDICARE, SELFPAY ==
[2023-03-30 14:28] LABS: MANUAL DIFF FLAG NO
[2023-03-30 15:21] LABS: Basophils Absolute Auto 0.1 X10*3/uL (0.0-0.2); Eosinophils Absolute Auto 0.2 X10*3/uL (0.0-0.4); Eosinophils Percent Auto 3.1 % (0-4); Hematocrit 37.5 % (42.0-52.0); Hemoglobin 11.8 g/dl (14.0-18.0); Imm Gran Abs Auto 0.02 X10*3/uL (0.00-0.03); Imm Gran Pct Auto 0.3 % (0.0-0.4); Lymphocytes Absolute Auto 1.3 X10*3/uL (1.2-4.9); Lymphocytes Percent Auto 18.6 % (20-40); Mean Corpuscular HGB Conc 31.5 g/dl (31.0-36.0); Mean Corpuscular Hemoglobin 28.4 pg (27.0-33.0); Mean Corpuscular Volume 90.4 fL (80.0-98.0); Mean Platelet Volume 11.2 fL (9.4-12.4); Monocytes Absolute Auto 0.8 X10*3/uL (0.1-1.2); Monocytes Percent Auto 12.3 % (2-11); Neutrophils Absolute Auto 4.4 x10*3/uL (2.0-8.3); Neutrophils Percent Auto 64.7 % (45-73); Platelet Count 147 X10*3/uL (160-400); Red Blood Count 4.15 X10*6/uL (4.60-5.80); Red Cell Distribution Width 14.7 % (11.0-16.0); White Blood Count 6.8 X10*3/uL (4.8-10.8)
[2023-03-30 15:25] LABS: Appearance Urine Clear; Color Urine Yellow; Glucose Urine UA Negative (Negative); Leukocyte Esterase Urine Negative (Negative); Nitrite Urine Negative (Negative); PH 5.5 (5.0-9.0); Specific Gravity - Urine 1.025 (1.005-1.025); Urine Blood Negative (Negative); Urine Ketones Trace mg/dL (Negative); Urine Protein Negative (Neg-Trace)
[2023-03-30 16:03] LABS: Alanine Aminotransferase 17 U/L (0-40); Albumin Level 3.8 g/dL (3.5-5.0); Alkaline Phosphatase 63 U/L (39-117); Anion Gap 10 (12-20); Aspartate Amino Transferase 20 U/L (5-37); Bilirubin Total 0.7 mg/dL (0.0-1.0); Blood Urea Nitrogen 22 mg/dL (9-16); Carbon Dioxide 29 mmol/L (22-29); Chloride 109 mmol/L (96-108); Estimated Glomerular Filt Rate > 60; Ferritin 264 ng/mL (20-250); Glucose Random 117 mg/dL (60-115); Iron 91 mcg/dL (45-160); Percent Iron Saturation 39 % (15-50); Sodium 143 mmol/L (135-145); TSH reflex Free T4 0.83 uIU/mL (0.32-4.0); Total Iron Binding Capacity 234 mcg/dL (228-428); Total Protein 6.3 g/dL (6.5-8.0); Unsaturated Iron Binding 143 ug/dL
[2023-03-30 16:12] LABS: Vitamin B12 426 pg/mL (200-900)
[2023-04-02 00:34] LABS: A. Phagocytphilium DNA,RT-PCR NOT DETECTED (NOT DETECTED); Babesia Microti DNA, RT-PCR NOT DETECTED (NOT DETECTED); Borrelia Miyamotoi,DNA RT-PCR NOT DETECTED (NOT DETECTED); E.Chaffeensis DNA RT-PCR NOT DETECTED (NOT DETECTED); Lyme(Borrelia ssp)DNA RT-PCR NOT DETECTED (NOT DETECTED)
== END 2023-03-30 11:21 | disposition home or self-care (01) ==
LOC: HO.HMGCLDS 11:20
PROVIDERS: PCP Nurse Practitioner Family; Visit Provider Nurse Practitioner Family
DX: R53.83 Other fatigue (principal); D64.9 Anemia, unspecified; I25.10 Atherosclerotic heart disease of native coronary artery without angina pectoris; I10 Essential (primary) hypertension; E78.5 Hyperlipidemia, unspecified
CPT/HCPCS: 36415; 80053; 81003; 82607; 82728; 82746; 83540; 84443; 85025; 87798; 87801

== ENCOUNTER → 2023-04-06 08:23 | Outpatient (BNVA) | payer MEDICARE, SELFPAY | PROVIDERS: PCP Nurse Practitioner Family; Referring Provider Nurse Practitioner Family; Visit Provider Internal Medicine | DX: I25.10 Atherosclerotic heart disease of native coronary artery without angina pectoris (principal); I10 Essential (primary) hypertension; F17.210 Nicotine dependence, cigarettes, uncomplicated; Z95.3 Presence of xenogenic heart valve; Z79.02 Long term (current) use of antithrombotics/antiplatelets; Z79.82 Long term (current) use of aspirin; Z79.899 Other long term (current) drug therapy | CPT/HCPCS: 99212 ==

== ENCOUNTER 2023-04-22 08:54 | Outpatient (REF) | payer MEDICARE, SELFPAY ==
[2023-04-22 11:08] LABS: MANUAL DIFF FLAG NO
[2023-04-22 11:31] LABS: Basophils Absolute Auto 0.1 X10*3/uL (0.0-0.2); Eosinophils Absolute Auto 0.2 X10*3/uL (0.0-0.4); Eosinophils Percent Auto 2.4 % (0-4); Hematocrit 37.6 % (42.0-52.0); Hemoglobin 12.2 g/dl (14.0-18.0); Imm Gran Abs Auto 0.01 X10*3/uL (0.00-0.03); Imm Gran Pct Auto 0.1 % (0.0-0.4); Lymphocytes Absolute Auto 1.2 X10*3/uL (1.2-4.9); Mean Corpuscular HGB Conc 32.4 g/dl (31.0-36.0); Mean Corpuscular Hemoglobin 28.8 pg (27.0-33.0); Mean Corpuscular Volume 88.7 fL (80.0-98.0); Mean Platelet Volume 11.8 fL (9.4-12.4); Monocytes Absolute Auto 0.9 X10*3/uL (0.1-1.2); Monocytes Percent Auto 11.8 % (2-11); Neutrophils Absolute Auto 4.9 x10*3/uL (2.0-8.3); Neutrophils Percent Auto 67.7 % (45-73); Platelet Count 157 X10*3/uL (160-400); Red Blood Count 4.24 X10*6/uL (4.60-5.80); Red Cell Distribution Width 14.5 % (11.0-16.0); White Blood Count 7.2 X10*3/uL (4.8-10.8)
[2023-04-22 12:07] LABS: Iron 98 mcg/dL (45-160); Percent Iron Saturation 41 % (15-50); Total Iron Binding Capacity 239 mcg/dL (228-428); Unsaturated Iron Binding 141 ug/dL
[2023-04-22 12:24] LABS: Ferritin 221 ng/mL (20-250)
== END 2023-04-22 08:55 | disposition home or self-care (01) ==
LOC: HO.HMGCLDS 08:54
PROVIDERS: PCP Nurse Practitioner Family; Visit Provider Nurse Practitioner Family
DX: D64.9 Anemia, unspecified (principal); R53.83 Other fatigue
CPT/HCPCS: 36415; 82728; 83540; 85025

== ENCOUNTER 2023-04-29 06:14 | Outpatient (REF) | payer MEDICARE, SELFPAY ==
[2023-04-29 20:08] LABS: Cholesterol 150 mg/dL; HDL Cholesterol 51 mg/dL; LDL Cholesterol Calculated 84 mg/dl; Triglycerides 79 mg/dL
== END 2023-04-29 06:15 | disposition home or self-care (01) ==
LOC: HO.LAB 06:14
PROVIDERS: Visit Provider Internal Medicine
DX: I25.10 Atherosclerotic heart disease of native coronary artery without angina pectoris (principal); E78.5 Hyperlipidemia, unspecified
CPT/HCPCS: 36415; 80061

== ENCOUNTER 2023-05-04 12:01 | Emergency (ER) | payer MEDICARE, SELFPAY ==
--- NOTE | ~2023-05-04 | US_ITS ---
EXAMINATION: US VENOUS ULTRASOUND WITH DOPPLER LOWER EXTREMITY, RIGHT CLINICAL INFORMATION: Right lower extremity pain. COMPARISON: None available. TECHNIQUE: Ultrasound of the deep veins is performed from the hip to the calf with compression sonography and color and pulse Doppler assessment. Spectral analysis with color-flow imaging is performed. FINDINGS: There is normal venous compression and respiratory variation and augmented flow. The visualized common femoral vein, superficial femoral vein, profunda femoral vein, popliteal vein, and the trifurcation region shows no evidence of deep venous thrombosis. The right peroneal vein was suboptimally visualized. A right popliteal cyst measures 4.8 x 1.0 x 1.5 cm. Color Doppler showed no abnormal vascular flow. US/US venous duplex LE RT IMPRESSION: 1. No evidence for deep venous thrombosis in the visualized veins of the right lower extremity. 2. Right popliteal cyst.
--- NOTE | ~2023-05-04 | XR_ITS ---
EXAMINATION: XR HIP, RIGHT CLINICAL INFORMATION: Right hip pain. COMPARISON: None available. TECHNIQUE: Two views of the right hip. FINDINGS: Moderate to severe right hip degenerative joint changes are seen. There is no acute fracture or dislocation. Left hip hardware is intact. The soft tissues are unremarkable. XR/XR hip RT w PEL1V IMPRESSION: 1. Moderate to severe right hip osteoarthritis. No acute fracture. 2. Intact left hip hardware.
[2023-05-04 12:17] VITALS: BP 133/55; PULSE 69; RESP 18; TEMP 36; O2SAT 96; BMI 31.0
--- NOTE | 2023-05-04 12:21 | ED.GENADULT ---
HPI - General Adult General Chief complaint: Extremity Injury, Lower Stated complaint: R Leg Pain No Injury Time Seen by Provider: 05/04/23 15:01 Source: patient and RN notes reviewed Mode of arrival: ambulatory Limitations: no limitations History of Present Illness HPI narrative: This is a 72-year-old male, with a past medical history of osteoporosis, coronary artery disease, PVCs, hypertension, presenting to the emergency department for evaluation of right leg pain x6 weeks. Patient reports that he has had right hip pain that is waxing and waning in severity and radiates down into his right buttocks and into his right thigh. He has been seen by Physical therapy for this the last 6 weeks without any improvement. He states that since starting physical therapy his symptoms have worsen. He also admits to having some intermittent calf pain and tenderness. He has a history of osteoarthritis in his left hip which was replaced. He called [facility] however they were unable to see him for multiple months. He states that he has been taking Tylenol with codeine, which he had an old prescription for, states that he ran out of this medication this morning. Denies any chest pain, shortness, fevers or chills. No trauma or injury to his right hip or right leg. No other complaints or concerns at this time. MD complaint: Right leg pain Onset (ago): week(s) Location: lower extremity Radiation: extremity Severity: moderate Quality: aching Pain Consistency: constant Relieving factors: medication and rest Exacerbating factors: movement Associated symptoms: denies other symptoms Treatments prior to arrival: none Related Data Home Medications Medication Instructions Recorded Confirmed finasteride 5 mg tablet 5 mg PO BEDTIME 08/08/20 04/06/23 cholecalciferol (vitamin D3) 125 125 mcg PO DAILY 07/29/22 04/06/23 mcg (5,000 unit) capsule tamsulosin 0.4 mg capsule 0.4 mg PO DAILY 07/29/22 04/06/23 clopidogrel 75 mg tablet 75 mg PO DAILY 03/30/23 04/06/23 Previous Rx's Medication Instructions Recorded losartan 100 mg tablet 100 mg PO DAILY #90 tabs 11/13/22 amlodipine 5 mg tablet 10 mg PO DAILY #180 tabs 12/17/22 atorvastatin 40 mg tablet 40 mg PO BEDTIME 90 days #90 tabs 12/30/22 gabapentin 300 mg capsule 300 mg PO TID 30 days #90 caps 04/14/23 naproxen 500 mg tablet 500 mg PO BID PRN for pain 30 days 03/29/23 #60 tabs aspirin 81 mg tablet,delayed 81 mg PO DAILY #90 tabs 03/30/23 release nystatin 100,000 unit/gram topical 1 appl topical DAILY #30 grams 04/16/23 powder acetaminophen 325 mg capsule 650 mg PO Q6H PRN pain #30 caps 05/04/23 (Tylenol) Allergies Allergy/AdvReac Type Severity Reaction Status Date / Time formaldehyde [FORMALDEHYDE] Allergy Unknown HIVES Verified 05/04/23 12:17 a steroid cream; he is not Allergy Unknown Unknown Uncoded 04/06/23 08:34 [employer] Allergy Unknown Unknown Uncoded 04/06/23 08:34 Review of Systems Review of Systems: Yes all other systems are reviewed and are negative Constitutional: Constitutional: Reports as per [facility] Past Medical History Medical History (Updated 05/04/23 @ 16:11 by MEREDITH Santos) COPD (chronic obstructive pulmonary disease) Deformity of left hand Diverticulosis Non-rheumatic aortic stenosis Rectus diastasis Right shoulder pain Severe aortic stenosis Skin cancer Smoker Systolic murmur Umbilical hernia Surgical History (Updated 04/06/23 @ 08:42 by Froylan Galvan MD) Aortic valve replaced History of left hip replacement S/P cardiac catheterization Status post transcatheter aortic valve replacement (TAVR) using bioprosthesis Family History Family History Father Unknown family medical history Mother No problems noted. Social History Social History (Updated 04/06/23 @ 08:35 by Fanny Little) Housing: House Alcohol intake: never Patient Tobacco Use Status: Current everyday Tobacco user Tobacco use type: Cigarette Cigarettes Per Day: 15 Years Smoked: 40 years e-Cigarette/Vaping Use: Never Used Second Hand Smoke Exposure: No Advance Directives: No Current occupational status: employed Cognitive needs: No Hearing needs: No Vision needs: Yes Physical Exam ED Vital Signs: Vital Signs - 24 hr 05/04/23 12:17 Temperature 96.8 F Pulse Rate 69 Respiratory Rate 18 Blood Pressure 133/55 L Pulse Oximetry 96 Oxygen Delivery Method Room Air BMI result Body Mass Index 31.0 Const General: cooperative, comfortable and no acute distress Orientation/consciousness: patient oriented x3 Limitations: no limitations HENMT Head: Yes normal to inspection, Yes normocephalic and Yes atraumatic Ears: hearing grossly normal bilaterally General nose exam: Normal external nose present Face and sinus: Yes normal facial exam Mouth: Normal oral and palatal mucosa present, oropharynx normal and moist mucous membranes Throat: Yes posterior oropharynx normal Eyes General: appearance normal, both eyes and all related structures Eyelids: Yes eyelids normal Conjunctivae: conjunctivae normal Sclerae: sclerae normal Pupils: Equal, round and reactive pupils present EOM: EOMs intact bilaterally Neck Neck: Yes normal visual inspection, Yes full ROM and Yes no lymphadenopathy Lymphatic: no lymphadenopathy noted Chest Chest palpation & inspection: normal inspection of the chest Resp Effort & Inspection: normal respiratory effort and able to speak in complete sentences Auscultation: clear to auscultation bilaterally, no crackles, no rales, no rhonchi and no wheezes Cardio Rate: regular rate Rhythm: regular rhythm Heart sounds: S1 normal heart sound present and S2 normal heart sound present GI Inspection: Yes normal to inspection Skin General skin exam: no rashes or lesions noted Trauma: no lacerations or abrasions Wounds: no wounds Neuro General: patient oriented x3 and moves all extremities Cranial nerves: Yes Equal, round and reactive pupils present Extrem Other: Right hip with no gross deformity or swelling. Right hip is nontender with palpation. Mild tenderness to palpation in the right buttock. Patient is ambulatory, able to flex and extend the the right hip with some tenderness. No calf tenderness, palpable cords, or overlying skin changes. Right knee is nontender, no bony abnormality seen a General: Yes normal to inspection Right upper extremity: normal to inspection Left upper extremity: normal to inspection Right lower extremity: normal to inspection Course Course Course Narrative: RME- 72-year-old male presents for evaluation of right upper leg pain. Reports has been going to physical therapy for 6 weeks. Denies any trauma. Plan for ultrasound of the lower extremity and x-ray of the hip Medical Decision Making Medical Decision Making [facility] Narrative: 72-year-old male, with a past medical history of arthritis, presenting to emergency department for evaluation of right hip pain x6 weeks. Patient is ambulatory using cane. Vital signs within normal limits. Physical exam consistent with arthritis. Differential diagnoses include osteoarthritis, septic arthritis, bursitis, fracture on the due to lack of injury or trauma. Ultrasound revealing a popliteal cyst, right hip x-ray showing moderate to severe osteoarthritis of the hip. I discussed these results with patient and these are likely the cause of his symptoms. Patient would like to follow-up with [facility] as [facility] is unable to see him for several months. Patient requesting prescription for Tylenol with codeine, I declined this given his age, and that he has not been taking Tylenol consistently. Given prescription for Tylenol and referral to orthopedics. Patient given return precautions if any new or worsening symptoms occur. Patient understands and agrees with plan. Patient stable for discharge. Differential Diagnosis Differential Diagnoses: The differential diagnosis associated with the presentation includes See above Admission/Observation Consideration of admission/observation: Escalation of care including admission/observation considered Independent Interpretation I performed an independent interpretation of an: Ultrasound Interpretation: EXAMINATION:? US VENOUS ULTRASOUND WITH DOPPLER LOWER EXTREMITY, RIGHT CLINICAL INFORMATION:? Right lower extremity pain. COMPARISON:? None available. TECHNIQUE: Ultrasound of the deep veins is performed from the hip to the calf with compression sonography and color and pulse Doppler assessment. Spectral analysis with color-flow imaging is performed. FINDINGS: There is normal venous compression and respiratory variation and augmented flow. The visualized common femoral vein, superficial femoral vein, profunda femoral vein, popliteal vein, and the trifurcation region shows no evidence of deep venous thrombosis. The right peroneal vein was suboptimally visualized. A right popliteal cyst measures 4.8 x 1.0 x 1.5 cm. Color Doppler showed no abnormal vascular flow. US/US venous duplex LE RT IMPRESSION: 1.? No evidence for deep venous thrombosis in the visualized veins of the right lower extremity. 2.? Right popliteal cyst. ? Dictated By: Ramos Grady MD EXAMINATION: XR HIP, RIGHT CLINICAL INFORMATION: Right hip pain. COMPARISON: None available. TECHNIQUE: Two views of the right hip. FINDINGS: Moderate to severe right hip degenerative joint changes are seen. There is no acute fracture or dislocation. Left hip hardware is intact. The soft tissues are unremarkable.? XR/XR hip RT w PEL1V IMPRESSION: 1.? Moderate to severe right hip osteoarthritis. No acute fracture. 2.? Intact left hip hardware. ? Dictated By: Ramos Grady MD Radiology Impression Discussion of test interpretation with radiology: I have reviewed the radiologist's reading. Discharge Plan Discharge Clinical Impression: Arthritis pain, hip, Ríos cyst Patient Disposition: Home, Self-Care Instructions: Osteoarthritis (ED), Bakers Cyst (ED) Additional Instructions: Your hip x-ray shows moderate to severe osteoarthritis. No broken bone was seen today. Your left hip hardware is in the proper place. Your ultrasound revealed a popliteal cyst. Please follow-up with Orthopedics, call today to make an appointment. Take Tylenol as directed as needed for pain and symptoms. Please follow-up with your primary care physician. If any new or worsening symptoms occur including but not limited to fevers, chills, worsening pain, chest pain, shortness of breath, or any other worsening symptoms please return for re-evaluation. Prescriptions: New acetaminophen [Tylenol] 325 mg capsule 650 mg PO Q6H PRN (Reason: pain) Qty: 30 0RF No Action losartan 100 mg tablet 100 mg PO DAILY Qty: 90 3RF gabapentin 300 mg capsule 300 mg PO TID 30 Days Qty: 90 3RF naproxen 500 mg tablet 500 mg PO BID PRN (Reason: for pain) 30 Days Qty: 60 0RF Rx Instructions: NEEDED USE ONLY, NOT FOR DAILY USE aspirin 81 mg tablet,delayed release (DR/EC) 81 mg PO DAILY Qty: 90 3RF nystatin 100,000 unit/gram powder 1 appl topical DAILY Qty: 30 1RF finasteride 5 mg tablet 5 mg PO BEDTIME clopidogrel 75 mg tablet 75 mg PO DAILY tamsulosin 0.4 mg capsule 0.4 mg PO DAILY cholecalciferol (vitamin D3) 125 mcg (5,000 unit) capsule 125 mcg PO DAILY atorvastatin 40 mg tablet 40 mg PO BEDTIME 90 Days Qty: 90 3RF amlodipine 5 mg tablet 10 mg PO DAILY Qty: 180 1RF Rx Instructions: TAKE 2 TABLET DAILY Referrals: [facility] [place] [facility] [Provider Group] Interventions: ED Discharge Assessment Last Done: 05/04/23 16:20 Discharge Date/Time: 05/04/23 16:21
== END 2023-05-04 16:21 | disposition home or self-care (01) ==
PROVIDERS: Emergency Provider Emergency Medicine; PCP Nurse Practitioner Family
DX: M13.851 Other specified arthritis, right hip (principal); M71.21 Synovial cyst of popliteal space [Baker], right knee; M79.604 Pain in right leg; I10 Essential (primary) hypertension; F17.210 Nicotine dependence, cigarettes, uncomplicated; Z79.899 Other long term (current) drug therapy
CPT/HCPCS: 73502; 93971; 99282; 99284

== ENCOUNTER 2023-05-06 08:00 | Outpatient (RCR) | payer MEDICARE, SELFPAY ==
--- NOTE | 2023-04-05 11:32 | MHC.PT.EP ---
[facility] [place] Office [place] Office [place] Office [address] Shona Mendoza [address] [phone] F: [phone] F: [phone] F: [phone] F: [phone] Physical Therapy Plan of Care Date of Evaluation: Date of Surgery: Diagnosis: This is a 72 yo male presenting to skilled PT with a script for pain in the R hip Assessment: This is a 72 yo male presenting to skilled PT with a script for pain in the R hip. Patient reporting that a year ago he had a pinched nerve in his low back. He was given a muscle relaxer and anti-inflammatories, he had PT and pain went away. His pain has now returned about 2 months ago (he also reports having bursitis in his leg muscle on the L, had PT and then that's when the R hip started). He has stiffness in the hip (lateral and anterior) and reports buckling at this hip with weight bearing. Denies radiating symptoms, numbness or tingling, sharp pain. Denies falls. States that movement has been helpful but when he stops the stiffness returns. 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 Assessment reveals pain that ranges from 7-8/10. Patient demos decreased lumbar and hip ROM, strength of RLE, TTP at lateral quad, ITB and hip muscles and is limited with ambulation, stairs and functional mobility in regards to transfers. Based on functional limitations, impaired QOL and pain tolerance patient is a good candidate for skilled PT 2x/wk for 4wks. Frequency and Duration: The patient will be seen 2x/wk for 4wks Short Term Goals: (in 2 wks) I in HEP Improve pain to no more than a 4/10 at the worst Demo equal quad set B without pain [facility] Goals: (in 4wks) Return gait to normal pattern without pain Demo ability to perform a SLR on the R Improve MMT of the hip by 1 grade Improve LEFs by 10 points Treatment Plan: Modalities to reduce pain, spasms and effusion. Manual therapy to restore motion and function. Therapeutic exercise to improve strength and flexibility. Neuromuscular re-education for posture and balance. Therapeutic activities to return to functional activities of daily living. Electronically signed by: Cecille Ortega PT Please sign and return to therapist. Thank you for your referral.
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
== END 2023-05-06 09:05 | disposition home or self-care (01) ==
LOC: HO.PTCHIC 08:00
PROVIDERS: PCP Nurse Practitioner Family; Visit Provider Nurse Practitioner Family
DX: M25.551 Pain in right hip (principal)
CPT/HCPCS: 97110; 97162; 97163

== ENCOUNTER 2023-05-18 10:09 | Emergency (ER) | payer MEDICARE, SELFPAY ==
[2023-05-18 10:18] VITALS: BP 136/49; PULSE 70; RESP 16; TEMP 36.6; O2SAT 95; BMI 31.0
--- NOTE | 2023-05-18 10:51 | ED.SKABFB ---
HPI - Skin/Abscess/Foreign Bdy General Chief complaint: Skin/Abscess/Foreign Body Stated complaint: Rash on Lips Time Seen by Provider: 05/18/23 10:46 Source: patient, RN notes reviewed and old records reviewed Mode of arrival: ambulatory History of Present Illness HPI narrative: 73-year-old male with a past medical history of COPD, nonrheumatic aortic stenosis, umbilical hernia, presenting to the ED complaining of uncomfortable rash to perioral area x2 months. Admits saw his dentist who prescribed triamcinolone which initially worked however then stopped working and rash persisted. Reports area cracked and sore. Denies new exposures/soaps/lotions/detergents or medications, recent travel, known insect bites, SOB MD complaint: rash Related Data Home Medications Medication Instructions Recorded Confirmed finasteride 5 mg tablet 5 mg PO BEDTIME 08/08/20 04/06/23 cholecalciferol (vitamin D3) 125 125 mcg PO DAILY 07/29/22 04/06/23 mcg (5,000 unit) capsule tamsulosin 0.4 mg capsule 0.4 mg PO DAILY 07/29/22 04/06/23 clopidogrel 75 mg tablet 75 mg PO DAILY 03/30/23 04/06/23 Previous Rx's Medication Instructions Recorded losartan 100 mg tablet 100 mg PO DAILY #90 tabs 11/13/22 atorvastatin 40 mg tablet 40 mg PO BEDTIME 90 days #90 tabs 12/30/22 gabapentin 300 mg capsule 300 mg PO TID 30 days #90 caps 01/22/23 naproxen 500 mg tablet 500 mg PO BID PRN for pain 30 days 03/29/23 #60 tabs aspirin 81 mg tablet,delayed 81 mg PO DAILY #90 tabs 03/30/23 release nystatin 100,000 unit/gram topical 1 appl topical DAILY #30 grams 04/16/23 powder acetaminophen 325 mg capsule 650 mg PO Q6H PRN pain #30 caps 05/04/23 (Tylenol) amlodipine 5 mg tablet 10 mg PO DAILY #180 tabs 05/06/23 mupirocin 2 % topical ointment 1 appl topical BID #22 grams 05/18/23 Allergies Allergy/AdvReac Type Severity Reaction Status Date / Time formaldehyde [FORMALDEHYDE] Allergy Unknown HIVES Verified 05/04/23 12:17 lanolin Allergy Hives Verified 05/18/23 10:24 a steroid cream; he is not Allergy Unknown Unknown Uncoded 04/06/23 08:34 dimitry [employer] Allergy Unknown Unknown Uncoded 04/06/23 08:34 Review of Systems Review of Systems: Constitutional:No Fever, No Chills ENT/Mouth: No Ear Pain, No Nasal Congestion, No Sinus Pain, No Hoarseness, No sore throat, No Rhinorrhea, No Swallowing Difficulty Cardiovascular: No Chest Pain, No SOB Respiratory: No Cough, No Wheezing Gastrointestinal: No Nausea, No Vomiting, No Abdominal pain Musculoskeletal: No joint pain, No Myalgias, No Joint Swelling Skin: No Skin Lesions, + rash Neuro: No Weakness Yes all other systems are reviewed and are negative Constitutional: Constitutional: Reports as per [facility] Past Medical History Attestation statement: The following information was validated with the patient. Source: old records reviewed Medical History COPD (chronic obstructive pulmonary disease) Deformity of left hand Diverticulosis Non-rheumatic aortic stenosis Rectus diastasis Right shoulder pain Severe aortic stenosis Skin cancer Smoker Systolic murmur Umbilical hernia Surgical History Aortic valve replaced History of left hip replacement S/P cardiac catheterization Status post transcatheter aortic valve replacement (TAVR) using bioprosthesis Family History Family History Father Unknown family medical history Mother No problems noted. Social History Social History Housing: House Alcohol intake: never Patient Tobacco Use Status: Current everyday Tobacco user Tobacco use type: Cigarette Cigarettes Per Day: 15 Years Smoked: 40 years e-Cigarette/Vaping Use: Never Used Second Hand Smoke Exposure: No Advance Directives: No Current occupational status: employed Cognitive needs: No Hearing needs: No Vision needs: Yes Physical Exam Vital Signs: Vital Signs: Last Vital Signs Temp 97.8 F 05/18/23 10:18 Pulse 70 05/18/23 10:18 Resp 16 05/18/23 10:18 BP 136/49 L 05/18/23 10:18 Pulse Ox 95 05/18/23 10:18 O2 Del Method Room Air 05/18/23 10:18 BMI result Body Mass Index 31.0 Const: General: cooperative, healthy appearing and no acute distress Orientation/consciousness: patient oriented x3 Limitations: no limitations HEENT: Head: Yes normal to inspection and Yes atraumatic Ears: hearing grossly normal bilaterally General nose exam: Normal external nose present Face and sinus: Yes normal facial exam Mouth: Normal oral and palatal mucosa present Throat: Yes posterior oropharynx normal, Yes uvula midline, No peritonsillar mass, No uvula laterally displaced and No uvular edema Eyes: General: appearance normal, both eyes and all related structures EOM: EOMs intact bilaterally Neck: Neck: Yes normal visual inspection and Yes no meningeal signs Resp: Effort & Inspection: normal respiratory effort, not labored, no respiratory distress and no stridor Cardio: Rate: regular rate Skin: Other: + erythematous cracked rash noted to perioral area. No pustules/vesicles, fluctuance/induration or warmth. No mucous membrane or palm/sole involvement. No swapping. Wounds: no wounds Neuro: General: patient oriented x3, tone normal and no meningeal signs Gait exam (Neuro): Normal gait present Extrem: General: Yes normal to inspection Medical Decision Making Medical Decision Making MDM Narrative: 73-year-old male with a past medical history of COPD, nonrheumatic aortic stenosis, umbilical hernia, presenting to the ED complaining of uncomfortable rash to perioral area x2 months. On exam vital signs stable, NAD, nontoxic appearing, physical exam as noted above, no mucous membrane or palm/sole involvement, talking in complete sentences, no stridor. Concern for atopic/contact dermatitis vs ? impetigo. No evidence of SJS, TENS Plan: Topical mupirocin, dermatology follow-up Results discussed with patient including worrisome signs and symptoms and strict return precautions, and when to return to the emergency department. They verbalized understanding and feel safe for discharge at this time. Differential Diagnosis Differential Diagnoses: The differential diagnosis associated with the presentation includes As above External Record Review External record reviewed: Inpatient record, Office record, Outpatient record, Prior outpatient labs, Prior outpatient radiology, Primary care record and Outside ED record Tests considered The following testing was considered but not selected: As above Prescription Management I considered prescription management with: Antibiotic Discharge Plan Discharge Clinical Impression: Dermatitis Patient Disposition: Home, Self-Care Instructions: Dermatitis (ED) Additional Instructions: You need to follow-up with dermatology Mupirocin as a topical antibiotic ointment, use twice daily You can try mixing in a one-to-one ratio the mupirocin in the triamcinolone to see if this will help If symptoms persist or worsen return to the ED Prescriptions: New mupirocin 2 % ointment 1 appl topical BID Qty: 22 0RF No Action losartan 100 mg tablet 100 mg PO DAILY Qty: 90 3RF gabapentin 300 mg capsule 300 mg PO TID 30 Days Qty: 90 3RF naproxen 500 mg tablet 500 mg PO BID PRN (Reason: for pain) 30 Days Qty: 60 0RF Rx Instructions: NEEDED USE ONLY, NOT FOR DAILY USE aspirin 81 mg tablet,delayed release (DR/EC) 81 mg PO DAILY Qty: 90 3RF nystatin 100,000 unit/gram powder 1 appl topical DAILY Qty: 30 1RF amlodipine 5 mg tablet 10 mg PO DAILY Qty: 180 3RF acetaminophen [Tylenol] 325 mg capsule 650 mg PO Q6H PRN (Reason: pain) Qty: 30 0RF finasteride 5 mg tablet 5 mg PO BEDTIME clopidogrel 75 mg tablet 75 mg PO DAILY tamsulosin 0.4 mg capsule 0.4 mg PO DAILY cholecalciferol (vitamin D3) 125 mcg (5,000 unit) capsule 125 mcg PO DAILY atorvastatin 40 mg tablet 40 mg PO BEDTIME 90 Days Qty: 90 3RF Referrals: Preethi Connolly PA [Physician [employer]] - Iglesia Palafox MD [Physician] - Gen Sinclair MD [Physician] - Danielle Willis NP [Nurse Practitioner] - Heidi Pitt PA-C [Physician [employer]] -
== END 2023-05-18 12:20 | disposition home or self-care (01) ==
PROVIDERS: Emergency Provider Emergency Medicine; PCP Nurse Practitioner Family
DX: L30.9 Dermatitis, unspecified (principal); F17.210 Nicotine dependence, cigarettes, uncomplicated; Z71.6 Tobacco abuse counseling; Z79.899 Other long term (current) drug therapy
CPT/HCPCS: 99283

== ENCOUNTER 2023-05-26 10:47 | Outpatient (AMB) | payer MEDICARE, SELFPAY ==
--- NOTE | 2023-05-26 11:21 | MHC.OFFVIS ---
Intake Vital Signs 05/26/23 11:23 Height 5 ft 9 in Intake Visit Reasons: [employer]OPER-RT hip, Ríos cyst/RT lower extremity pain Intake Note: Ponce is a 73 year old male who presents today as a new patient with complaints of right hip pain. Hx of cortisone injection in March with [facility], This did not help. Left Hip [place] with NEOS [place] [address] Chavarria. The patient reports mild intermittent discomfort along the lateral aspect of his left hip. 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 He denies any fevers or chills. He describes his right hip pain as sharp and severe in nature, 10/10. Most of his right hip pain is located within his groin. He has done physical therapy for 12 weeks over the last 6 months which aggravated his pain. The patient has difficulty walking even short distances because of his pain. At this point is right hip pain is interfering with his activities of daily living and his ability to sleep well through the night. Allergies formaldehyde [FORMALDEHYDE] Allergy (Unknown, Verified 05/04/23 12:17) HIVES lanolin Allergy (Verified 05/18/23 10:24) Hives a steroid cream; he is not dimitry Allergy (Unknown, Uncoded 04/06/23 08:34) Unknown [employer] and [employer] Allergy (Unknown, Uncoded 04/06/23 08:34) Unknown Medication List - Last Reconciled 05/26/23 by Stan Pham MD acetaminophen (Tylenol) 650 mg (2 x 325 mg) PO Q6H PRN amlodipine 10 mg (2 x 5 mg) PO DAILY aspirin 81 mg PO DAILY atorvastatin 40 mg PO BEDTIME 90 days cholecalciferol (vitamin D3) 125 mcg PO DAILY clopidogrel 75 mg PO DAILY finasteride 5 mg PO BEDTIME gabapentin 300 mg PO TID 30 days losartan 100 mg PO DAILY mupirocin 2% 1 appl topical BID naproxen 500 mg PO BID PRN 30 days nystatin 1 appl topical DAILY tamsulosin 0.4 mg PO DAILY PFSH Medical History COPD (chronic obstructive pulmonary disease) Deformity of left hand Diverticulosis Non-rheumatic aortic stenosis Rectus diastasis Right shoulder pain Severe aortic stenosis Skin cancer Smoker Systolic murmur Umbilical hernia Surgical History Aortic valve replaced History of left hip replacement S/P cardiac catheterization Status post transcatheter aortic valve replacement (TAVR) using bioprosthesis Family History Father Unknown family medical history Mother No problems noted. Social History Housing: House Alcohol intake: never Patient Tobacco Use Status: Current everyday Tobacco user Tobacco use type: Cigarette Cigarettes Per Day: 15 Years Smoked: 40 years e-Cigarette/Vaping Use: Never Used Second Hand Smoke Exposure: No Current occupational status: employed Cognitive needs: No Hearing needs: No Vision needs: Yes Physical Exam Const Other: Well-nourished well-developed very friendly male awake alert and oriented x3 in no acute distress Extrem Other: Bilateral lower extremity examination shows good capillary refill, no skin lesions noted, normal sensation light touch Right hip examination shows decreased range of motion when compared to his left hip, pain with range of motion, no tenderness over his bursa Results Reviewed Results Reviewed: X-rays of the patient's right hip show severe joint space narrowing with grade 4 [id number] arthritis, subchondral sclerosis, osteophyte formation, no acute bony abnormalities Assessment & Plan Assessment & Plan (1) Arthritis of right hip: Code(s): M16.11 - Unilateral primary osteoarthritis, right hip Plan: Mr. Fitzpatrick presents with progressively worsening right hip pain due to end-stage degenerative joint disease. I had a lengthy discussion with the patient regarding the treatment options. At this point he has failed continued non operative treatments. The risks and benefits of right total hip replacement surgery were discussed at length with the patient. We had a discussion regarding implant in bearing options. We had a detailed discussion of the advantages and limitations of the specific implant designs, materials and bearing surfaces. All questions were answered to the patient's satisfaction. The patient wishes to proceed with surgery. Because the patient's symptoms are severe and intractable we will schedule surgery for as soon as possible. Coronavirus precautions will be taken. The patient will follow-up as instructed. Feel free to call me at any time should questions regarding his orthopedic management arise. Thank you very much for asking me to see this very friendly gentleman. I spent 22 minutes in reviewing the patient's records and imaging studies, seeing the patient and documenting in the medical record. Coding Level of Care Code New Pt Level 2 (55581) Diagnoses Arthritis of right hip M16.11
== END 2023-05-26 11:58 | disposition home or self-care (01) ==
PROVIDERS: PCP Nurse Practitioner Family; Visit Provider Orthopaedic Surgery
DX: M16.11 Unilateral primary osteoarthritis, right hip (principal)
CPT/HCPCS: 99202

== ENCOUNTER → 2023-05-26 10:47 | Outpatient (BNVA) | payer MEDICARE, SELFPAY | PROVIDERS: PCP Nurse Practitioner Family; Visit Provider Orthopaedic Surgery | DX: M16.11 Unilateral primary osteoarthritis, right hip (principal) | CPT/HCPCS: 99202 ==

== ENCOUNTER 2023-05-30 06:30 | Emergency (ER) | payer MEDICARE, SELFPAY ==
[2023-05-30 06:35] VITALS: BP 155/67; PULSE 70; RESP 16; TEMP 36.6; O2SAT 97; BMI 31.0
--- NOTE | 2023-05-30 07:10 | ED.SKABFB ---
HPI - Skin/Abscess/Foreign Bdy General Chief complaint: Skin/Abscess/Foreign Body Stated complaint: Rash Time Seen by Provider: 05/30/23 06:46 Source: patient and RN notes reviewed Mode of arrival: ambulatory Limitations: no limitations History of Present Illness HPI narrative: This is a 72-year-old male, with a past medical history of osteoporosis, coronary artery disease, PVCs, hypertension, presenting to the emergency department for evaluation of itchy rash on chest x1 week. Patient was seen in the emergency department on May 18, 2023 for a rash around his mouth. This has since resolved. He states that about a week ago he developed a itchy patch on his chest which has since spread diffusely throughout his chest. He was seen by his color maker formulator last week and was prescribed fluocinonide cream which has not been helping his symptoms. He states that he has had no new soaps, lotions, detergents, or foods. He reports that he was working on repairing cabinets as well as using insulation and is unsure if this is causing him to have the symptoms. He also reports that at physical therapy he gets adhesive pads placed on his chest which may have caused the symptoms as well. He denies any fevers, chills, chest pain, shortness a breath, difficulty breathing, abdominal pain, nausea, vomiting, or diarrhea. No other complaints or concerns at this time. MD complaint: rash Onset (ago): week(s) Location: chest Severity: moderate Quality: pruritic Pain Consistency: constant Relieving factors: none Exacerbating factors: none Context: none Associated symptoms: denies other symptoms Treatments prior to arrival: none Related Data Home Medications Medication Instructions Recorded Confirmed finasteride 5 mg tablet 5 mg PO BEDTIME 08/08/20 05/26/23 cholecalciferol (vitamin D3) 125 125 mcg PO DAILY 07/29/22 05/26/23 mcg (5,000 unit) capsule tamsulosin 0.4 mg capsule 0.4 mg PO DAILY 07/29/22 05/26/23 clopidogrel 75 mg tablet 75 mg PO DAILY 03/30/23 05/26/23 Previous Rx's Medication Instructions Recorded losartan 100 mg tablet 100 mg PO DAILY #90 tabs 11/13/22 atorvastatin 40 mg tablet 40 mg PO BEDTIME 90 days #90 tabs 12/30/22 naproxen 500 mg tablet 500 mg PO BID PRN for pain 30 days 03/29/23 #60 tabs aspirin 81 mg tablet,delayed 81 mg PO DAILY #90 tabs 03/30/23 release nystatin 100,000 unit/gram topical 1 appl topical DAILY #30 grams 04/16/23 powder acetaminophen 325 mg capsule 650 mg PO Q6H PRN pain #30 caps 05/04/23 (Tylenol) amlodipine 5 mg tablet 10 mg PO DAILY #180 tabs 05/06/23 mupirocin 2 % topical ointment 1 appl topical BID #22 grams 05/18/23 gabapentin 300 mg capsule 300 mg PO TID 30 days #90 caps 05/19/23 prednisone 20 mg tablet 40 mg PO DAILY 5 days #10 tabs 05/30/23 Allergies Allergy/AdvReac Type Severity Reaction Status Date / Time formaldehyde [FORMALDEHYDE] Allergy Unknown HIVES Verified 05/30/23 06:38 lanolin Allergy Hives Verified 05/30/23 06:38 a steroid cream; he is not Allergy Unknown Unknown Uncoded 05/30/23 06:38 dimitry [employer] Allergy Unknown Unknown Uncoded 05/30/23 06:38 Review of Systems Review of Systems: Yes all other systems are reviewed and are negative Constitutional: Constitutional: Reports as per [facility] Past Medical History Medical History COPD (chronic obstructive pulmonary disease) Deformity of left hand Diverticulosis Non-rheumatic aortic stenosis Rectus diastasis Right shoulder pain Severe aortic stenosis Skin cancer Smoker Systolic murmur Umbilical hernia Surgical History Aortic valve replaced History of left hip replacement S/P cardiac catheterization Status post transcatheter aortic valve replacement (TAVR) using bioprosthesis Family History Family History Father Unknown family medical history Mother No problems noted. Social History Social History Housing: House Alcohol intake: never Patient Tobacco Use Status: Current everyday Tobacco user Tobacco use type: Cigarette Cigarettes Per Day: 15 Years Smoked: 40 years e-Cigarette/Vaping Use: Never Used Second Hand Smoke Exposure: No Advance Directives: Yes Advance Directives Information Provided: Yes Advance Directives on File: No Current occupational status: employed Cognitive needs: No Hearing needs: No Vision needs: Yes Physical Exam Vital Signs: Vital Signs: Last Vital Signs Temp 97.8 F 05/30/23 06:35 Pulse 70 05/30/23 06:35 Resp 16 05/30/23 06:35 BP 155/67 H 05/30/23 06:35 Pulse Ox 97 05/30/23 06:35 O2 Del Method Room Air 05/30/23 06:35 BMI result Body Mass Index 31.0 Const: General: cooperative, comfortable and no acute distress Orientation/consciousness: patient oriented x3 Limitations: no limitations HEENT: Other: Airway patent. Head: Yes normal to inspection, Yes normocephalic and Yes atraumatic Ears: hearing grossly normal bilaterally General nose exam: Normal external nose present Face and sinus: Yes normal facial exam Mouth: Normal oral and palatal mucosa present, oropharynx normal and moist mucous membranes Throat: Yes posterior oropharynx normal Eyes: General: appearance normal, both eyes and all related structures Eyelids: Yes eyelids normal Conjunctivae: conjunctivae normal Sclerae: sclerae normal Pupils: Equal, round and reactive pupils present EOM: EOMs intact bilaterally Neck: Neck: Yes normal visual inspection, Yes full ROM and Yes no lymphadenopathy Lymphatic: no lymphadenopathy noted Chest: Chest palpation & inspection: normal inspection of the chest Resp: Effort & Inspection: normal respiratory effort and able to speak in complete sentences Auscultation: clear to auscultation bilaterally, no crackles, no rales, no rhonchi and no wheezes Cardio: Rate: regular rate Rhythm: regular rhythm Heart sounds: S1 normal heart sound present and S2 normal heart sound present GI: Inspection: Yes normal to inspection Skin: Other: Anterior chest wall with macular papular rash. No sloughing. +blanchable. No warmth, drainage. General skin exam: no rashes or lesions noted Trauma: no lacerations or abrasions Wounds: no wounds Neuro: General: patient oriented x3 and moves all extremities Cranial nerves: Yes Equal, round and reactive pupils present Extrem: General: Yes normal to inspection Right upper extremity: normal to inspection Left upper extremity: normal to inspection Right lower extremity: normal to inspection Left lower extremity: normal to inspection Medical Decision Making Medical Decision Making MDM Narrative: This is a 72-year-old male, with a past medical history of osteoporosis, coronary artery disease, PVCs, hypertension, presenting to the emergency department for evaluation of pruritic rash x1 week. Has had multiple exposures which has potentially caused him to have allergic reaction. On arrival, mildly hypertensive at 155/67, no chest pain, shortness of breath, visual changes or headaches. Rash appears to be contact dermatitis. Area does not have any drainage, fluctuance, or induration to suggest cellulitis or abscess. Less likely anaphylaxis given no difficulty breathing, lungs clear to auscultation bilaterally without any wheezing or oral edema. Will treat patient with course of prednisone, and he has follow-up with color maker formulator next week. Given return precautions if any new or worsening symptoms occur. Patient understands and agrees with plan. Patient stable for discharge. Differential Diagnosis Differential Diagnoses: The differential diagnosis associated with the presentation includes Contact dermatitis, cellulitis, abscess, folliculitis Discharge Plan Discharge Clinical Impression: Contact dermatitis Patient Disposition: Home, Self-Care Instructions: Contact Dermatitis (ED) Additional Instructions: Your having allergic reaction to something you were in contact with. Please take prescribed medication as directed. Finish the entire course even if your feeling better. Follow-up with your color maker formulator as scheduled next week. If any new or worsening symptoms occur including but not limited to difficulty breathing, swallowing, chest pain, or shortness of breath, please return for re-evaluation. Prescriptions: New prednisone 20 mg tablet 40 mg PO DAILY 5 Days Qty: 10 0RF No Action losartan 100 mg tablet 100 mg PO DAILY Qty: 90 3RF naproxen 500 mg tablet 500 mg PO BID PRN (Reason: for pain) 30 Days Qty: 60 0RF Rx Instructions: NEEDED USE ONLY, NOT FOR DAILY USE aspirin 81 mg tablet,delayed release (DR/EC) 81 mg PO DAILY Qty: 90 3RF nystatin 100,000 unit/gram powder 1 appl topical DAILY Qty: 30 1RF amlodipine 5 mg tablet 10 mg PO DAILY Qty: 180 3RF gabapentin 300 mg capsule 300 mg PO TID 30 Days Qty: 90 3RF acetaminophen [Tylenol] 325 mg capsule 650 mg PO Q6H PRN (Reason: pain) Qty: 30 0RF mupirocin 2 % ointment 1 appl topical BID Qty: 22 0RF finasteride 5 mg tablet 5 mg PO BEDTIME clopidogrel 75 mg tablet 75 mg PO DAILY tamsulosin 0.4 mg capsule 0.4 mg PO DAILY cholecalciferol (vitamin D3) 125 mcg (5,000 unit) capsule 125 mcg PO DAILY atorvastatin 40 mg tablet 40 mg PO BEDTIME 90 Days Qty: 90 3RF
== END 2023-05-30 07:27 | disposition home or self-care (01) ==
PROVIDERS: Emergency Provider Emergency Medicine; PCP Nurse Practitioner Family
DX: L23.9 Allergic contact dermatitis, unspecified cause (principal); F17.210 Nicotine dependence, cigarettes, uncomplicated; Z71.6 Tobacco abuse counseling
CPT/HCPCS: 99282

== ENCOUNTER 2023-07-01 08:06 | Outpatient (AMB) | payer MEDICARE, SELFPAY ==
[2023-07-01 08:13] VITALS: BP 132/74; PULSE 61; O2SAT 96; BMI 31.2
--- NOTE | 2023-07-01 08:13 | A.OFFPC_ITS ---
Vital Signs 07/01/23 08:13 Height 5 ft 9 in Weight 211 lb 4 oz BMI 31.2 BP 132/74 Blood Pressure Location Lt brachial Position Sitting Pulse 61 Pulse Source Pulse Oximeter Pulse Oximetry (%) 96 Oxygen Delivery Method Room Air Intake Visit Reasons: 2 month follow up Allergies formaldehyde [FORMALDEHYDE] Allergy (Unknown, Verified 07/01/23 08:16) HIVES lanolin Allergy (Verified 07/01/23 08:16) Hives a steroid cream; he is not dimitry Allergy (Unknown, Uncoded 07/01/23 08:16) Unknown [employer] and subway Allergy (Unknown, Uncoded 07/01/23 08:16) Unknown Tobacco use date assessed: 07/01/23 Fall risk assessment: No Falls in past year Last assessed Fall Risk: 07/01/23 Dental Screening Dental Screen Date: 07/01/23 Did you have a dental visit in the last 12 months?: No Did you have a dental problem in the last 6 months where you did not have access to dental care?: No Was dental information given to patient?: Patient has dentist HPI 2 month follow up HPI Details Pt reports atopic dermatitis around his left eye. He has been seeing dermatology for this and was given betamethasone solution. Pt reports that the rash on his face has been present for a week, though further reports it is getting better. Will send prednisone. 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 HTN: Blood pressure is stable, managed with amlodipine 10mg and losartan 100mg. Denies chest pain, shortness of breath, headache, dizziness, and blurred vision. [facility] Medical History Right shoulder pain Non-rheumatic aortic stenosis Severe aortic stenosis Diverticulosis Umbilical hernia Deformity of left hand Systolic murmur Smoker COPD (chronic obstructive pulmonary disease) Skin cancer Rectus diastasis Surgical History Status post transcatheter aortic valve replacement (TAVR) using bioprosthesis Aortic valve replaced S/P cardiac catheterization History of left hip replacement Family History Father Unknown family medical history Mother No problems noted. Social History Housing: House Alcohol intake: never Patient Tobacco Use Status: Current everyday Tobacco user Tobacco use type: Cigarette Cigarettes Per Day: 15 Years Smoked: 40 years e-Cigarette/Vaping Use: Never Used Second Hand Smoke Exposure: No Current occupational status: employed Cognitive needs: No Hearing needs: No Vision needs: Yes Questionnaire Thrive Questionnaire Date Thrive assessed: 01/20/22 Review of Systems Const Reports as per HPI Physical exam (Primary Care) Vital Signs: Last Vital Signs Pulse 61 07/01/23 08:13 BP 132/74 07/01/23 08:13 Pulse Ox 96 07/01/23 08:13 Oxygen Delivery Method Room Air 07/01/23 08:13 BMI result Body Mass Index 31.2 Tobacco/Smoking Status: Tobacco use Status Tobacco use date assessed 07/01/23 07/01/23 08:21 Patient Tobacco Use Status Current everyday Tobacco 07/01/23 08:21 Tobacco use type Cigarette 07/01/23 08:21 e-Cigarette/Vaping Use Never Used 07/01/23 08:21 Thrive Assessment: Date of Thrive Assessment Date Thrive assessed 01/20/22 07/01/23 08:21 Const General: cooperative Nutritional Appearance: obese Orientation/consciousness: patient oriented x3 Resp Effort & Inspection: normal respiratory effort Auscultation: clear to auscultation bilaterally and diminished lung sounds Cardio Rate: regular rate Rhythm: regular rhythm Heart sounds: S1 normal heart sound present, S2 normal heart sound present and Murmur heart sound present systolic Skin Other: left upper eyelid swollen, just inferior to left eye with swelling, bridge of nose left side with scabbing, no signs of infection or orbital cellulitis Neuro General: patient oriented x3 Extrem Other: no edema Psych Appearance: grossly normal Mental Status: mental status grossly normal Speech and movement: Normal speech and movement present Affect: normal affect Attitude: cooperative Thought process: Normal thought process present Thought content: Normal thought content present Insight: Good insight present (Psych) Judgement: Good judgement present (Psych) Assessment and Plan Assessment & Plan (1) Essential hypertension: Code(s): I10 - Essential (primary) hypertension Plan: Labs ordered (2) Smoker: Code(s): F17.200 - Nicotine dependence, unspecified, uncomplicated Plan: Labs ordered (3) Screening PSA (prostate specific antigen): Code(s): Z12.5 - Encounter for screening for malignant neoplasm of prostate Plan: PSA ordered (4) Atopic dermatitis: Code(s): L20.9 - Atopic dermatitis, unspecified Plan: Prednisone sent Plan The patient agreed to the use of a certified medical technician assistant for this encounter. Scribed for Efraín Perry R DEVELOPER- by Rosa Charles certified medical technician assistant, on 07/01/2023 at 08:25 EST. Orders: Orders Complete Blood Count Auto Diff Today F17.200 - Nicotine dependence, unspecified, uncomplicated, I10 - Essential (primary) hypertension TSH reflex Free T4 Today F17.200 - Nicotine dependence, unspecified, uncomplicated, I10 - Essential (primary) hypertension UA CC w/rflx Micro + Cult Today F17.200 - Nicotine dependence, unspecified, uncomplicated, I10 - Essential (primary) hypertension Comprehensive [place]. Panel Fast Today F17.200 - Nicotine dependence, unspecified, uncomplicated, I10 - Essential (primary) hypertension Lipid Panel Today F17.200 - Nicotine dependence, unspecified, uncomplicated, I10 - Essential (primary) hypertension Prostate Specific Antigen Scr Today Z12.5 - Encounter for screening for malignant neoplasm of prostate Medications: New prednisone 20 mg PO DAILY 6 days 6 tabs 0RF Coding Level of Care Code Est Pt Level 3 (27743) Diagnoses Essential hypertension I10 Smoker F17.200 Screening PSA (prostate specific antigen) Z12.5 Atopic dermatitis L20.9
== END 2023-07-01 08:49 | disposition home or self-care (01) ==
PROVIDERS: PCP Nurse Practitioner Family; Visit Provider Nurse Practitioner Family
DX: I10 Essential (primary) hypertension (principal); F17.200 Nicotine dependence, unspecified, uncomplicated; Z12.5 Encounter for screening for malignant neoplasm of prostate; L20.9 Atopic dermatitis, unspecified
CPT/HCPCS: 99213

== ENCOUNTER 2023-08-17 09:00 | Outpatient (RCR) | payer MEDICARE, SELFPAY | END 2023-08-30 08:01 | disposition home or self-care (01) | LOC: HO.PTCHIC 09:00 | PROVIDERS: PCP Nurse Practitioner Family; Visit Provider Physician Assistant | DX: Z96.642 Presence of left artificial hip joint (principal) | CPT/HCPCS: 97110; 97162; 97530 ==

== ENCOUNTER 2023-09-27 06:07 | Emergency (ER) | payer MEDICARE, SELFPAY ==
--- NOTE | ~2023-09-27 | XR_ITS ---
EXAMINATION: XR CHEST CLINICAL INFORMATION: Coughing COMPARISON: 03/29/2022 TECHNIQUE: Frontal view of the chest was obtained. FINDINGS: No significant abnormality is noted involving the heart, lungs, mediastinum, bony thorax or soft tissues. XR/XR chest 1V IMPRESSION: Unremarkable examination.
[2023-09-27 06:18] VITALS: BP 146/57; PULSE 77; RESP 20; TEMP 37.1; O2SAT 95; BMI 32.5
[2023-09-27 07:08] LABS: Influenza A PCR NEGATIVE (Negative); Influenza B PCR NEGATIVE (Negative); Resp Syncy Virus RNA Qual PCR POSITIVE (Negative); SARS COV2 PCR INHOUSE NEGATIVE (Negative)
[2023-09-27 08:58] VITALS: BP 163/74; PULSE 68; RESP 18; O2SAT 95
--- NOTE | 2023-09-27 09:38 | ED.URI ---
HPI - URI/Sore Throat General Chief Complaint: Upper Respiratory Symptoms Stated Complaint: respiratory infection Time Seen by Provider: 09/27/23 09:12 History of Present Illness HPI Narrative: Patient complains of 5 days of runny nose and nasal congestion with clear discharge no fever no dizziness no weakness no chest pain no significant cough no sputum no shortness of breath no nausea or vomiting no dizziness no weakness Related Data Home Medications Medication Instructions Recorded Confirmed finasteride 5 mg tablet 5 mg PO BEDTIME 08/08/20 05/26/23 cholecalciferol (vitamin D3) 125 125 mcg PO DAILY 07/29/22 05/26/23 mcg (5,000 unit) capsule tamsulosin 0.4 mg capsule 0.4 mg PO DAILY 07/29/22 05/26/23 clopidogrel 75 mg tablet 75 mg PO DAILY 03/30/23 05/26/23 Previous Rx's Medication Instructions Recorded atorvastatin 40 mg tablet 40 mg PO BEDTIME 90 days #90 tabs 12/30/22 aspirin 81 mg tablet,delayed 81 mg PO DAILY #90 tabs 03/30/23 release acetaminophen 325 mg capsule 650 mg (2 x 325 mg) PO Q6H PRN 05/04/23 (Tylenol) pain #30 caps amlodipine 5 mg tablet 10 mg (2 x 5 mg) PO DAILY #180 tabs 05/06/23 mupirocin 2 % topical ointment 1 appl topical BID #22 grams 05/18/23 gabapentin 300 mg capsule 300 mg PO TID 30 days #90 caps 05/19/23 prednisone 20 mg tablet 20 mg PO DAILY 6 days #6 tabs 07/01/23 naproxen 500 mg tablet 500 mg PO BID PRN for pain 30 days 08/15/23 #60 tabs nystatin 100,000 unit/gram topical 1 appl topical DAILY #30 grams 08/15/23 powder losartan 100 mg tablet 100 mg PO DAILY #90 tabs 08/23/23 cetirizine 10 mg tablet 10 mg PO DAILY PRN allergy 09/27/23 symptoms #14 tabs oxymetazoline 0.05 % nasal spray 2 spray intranasal Q12H PRN nasal 09/27/23 congestion 5 days #30 mL Allergies Allergy/AdvReac Type Severity Reaction Status Date / Time formaldehyde [FORMALDEHYDE] Allergy Unknown HIVES Verified 07/01/23 08:16 lanolin Allergy Hives Verified 07/01/23 08:16 a steroid cream; he is not Allergy Unknown Unknown Uncoded 07/01/23 08:16 dimitry [employer] and [employer] Allergy Unknown Unknown Uncoded 07/01/23 08:16 COUNT INCLUDES THE [facility] Past Medical History Source: nursing notes reviewed Medical History Right shoulder pain Non-rheumatic aortic stenosis Severe aortic stenosis Diverticulosis Umbilical hernia Deformity of left hand Systolic murmur Smoker COPD (chronic obstructive pulmonary disease) Skin cancer Rectus diastasis Surgical History Status post transcatheter aortic valve replacement (TAVR) using bioprosthesis Aortic valve replaced S/P cardiac catheterization History of left hip replacement Family History Family History Father Unknown family medical history Mother No problems noted. Social History Social History Housing: House Alcohol intake: never Patient Tobacco Use Status: Current everyday Tobacco user Tobacco use type: Cigarette Cigarettes Per Day: 15 Years Smoked: 40 years e-Cigarette/Vaping Use: Never Used Second Hand Smoke Exposure: No Advance Directives: No Advance Directives Information Provided: No Current occupational status: employed Cognitive needs: No Hearing needs: No Vision needs: Yes Physical Exam Vital Signs: Vital Signs: Last Vital Signs Temp 98.8 F 09/27/23 06:18 Pulse 68 09/27/23 08:58 Resp 18 09/27/23 08:58 BP 163/74 H 09/27/23 08:58 Pulse Ox 95 09/27/23 08:58 O2 Del Method Room Air 09/27/23 08:58 BMI result Body Mass Index 32.5 General appearance comfortable, cooperative no acute distress The eyes no redness or discharge The sinuses nontender but congested The pharynx is clear without redness swelling or exudate The neck is supple Chest is clear to auscultation bilateral Heart rate and rhythm regular Skin no rash Neuro no focal deficits Course Course Course Narrative: Well-appearing patient with the main complaint of nasal congestion, clear discharge sneezing, no facial pain no fever no tenderness over sinuses no cough no shortness of breath Testing was positive for RSV negative for COVID and flu Chest x-ray was normal no evidence of pneumonia Well-appearing patient breathing easily very unlikely to have sinusitis and likely to have RSV viral illness is discharged Medical Decision Making Lab Data Labs: Lab Results 09/27/23 Range/Units 06:23 Influenza Type A (PCR) NEGATIVE (Negative) Influenza Type B (PCR) NEGATIVE (Negative) RSV RNA Qual (PCR) POSITIVE A (Negative) SARS-CoV-2 RNA (RT-PCR) NEGATIVE (Negative) Discharge Plan Discharge Clinical Impression: Viral illness, Respiratory syncytial virus (RSV) Patient Disposition: Home, Self-Care Additional Instructions: Chest x-ray was normal, viral testing showed you have RSV which is very common cold virus There is no antibiotic treatment for this, it gets better usually within 1-2 weeks In rare cases it can get worse so if you have trouble breathing high fever bad cough any worse condition or any concerns return to the ER For symptomatic relief I wrote for an antihistamine which may help dry up secretions and you can try Afrin/oxymetazoline spray which will help with congestion but it may also raise your blood pressure, so check your blood pressure at home Afrin spray can sometimes have a rebound effect if used for too many days so try to limit use for no more than 5 days Prescriptions: New cetirizine 10 mg tablet 10 mg PO DAILY PRN (Reason: allergy symptoms) Qty: 14 0RF oxymetazoline 0.05 % spray,non-aerosol 2 spray intranasal Q12H PRN (Reason: nasal congestion) 5 Days Qty: 30 0RF No Action aspirin 81 mg tablet,delayed release (DR/EC) 81 mg PO DAILY Qty: 90 3RF amlodipine 5 mg tablet 10 mg PO DAILY Qty: 180 3RF gabapentin 300 mg capsule 300 mg PO TID 30 Days Qty: 90 3RF naproxen 500 mg tablet 500 mg PO BID PRN (Reason: for pain) 30 Days Qty: 60 0RF nystatin 100,000 unit/gram powder 1 appl topical DAILY Qty: 30 1RF losartan 100 mg tablet 100 mg PO DAILY Qty: 90 3RF acetaminophen [Tylenol] 325 mg capsule 650 mg PO Q6H PRN (Reason: pain) Qty: 30 0RF mupirocin 2 % ointment 1 appl topical BID Qty: 22 0RF finasteride 5 mg tablet 5 mg PO BEDTIME clopidogrel 75 mg tablet 75 mg PO DAILY prednisone 20 mg tablet 20 mg PO DAILY 6 Days Qty: 6 0RF tamsulosin 0.4 mg capsule 0.4 mg PO DAILY cholecalciferol (vitamin D3) 125 mcg (5,000 unit) capsule 125 mcg PO DAILY atorvastatin 40 mg tablet 40 mg PO BEDTIME 90 Days Qty: 90 3RF
== END 2023-09-27 10:05 | disposition home or self-care (01) ==
PROVIDERS: Emergency Provider Emergency Medicine
DX: J22 Unspecified acute lower respiratory infection (principal); B97.4 Respiratory syncytial virus as the cause of diseases classified elsewhere; R05.9 Cough, unspecified; Z20.822 Contact with and (suspected) exposure to COVID-19; Z20.828 Contact with and (suspected) exposure to other viral communicable diseases
CPT/HCPCS: 0241U; 71045; 99282; 99283

== ENCOUNTER 2023-10-05 06:59 | Outpatient (REF) | payer MEDICARE, SELFPAY ==
[2023-10-05 11:12] LABS: MANUAL DIFF FLAG NO
[2023-10-05 11:30] LABS: Appearance Urine Clear; Color Urine Yellow; Glucose Urine UA Negative (Negative); Leukocyte Esterase Urine Negative (Negative); Nitrite Urine Negative (Negative); PH 5.5 (5.0-9.0); Specific Gravity - Urine 1.015 (1.005-1.025); Urine Blood Negative (Negative); Urine Ketones Negative (Negative); Urine Protein Negative (Neg-Trace)
[2023-10-05 11:31] LABS: Basophils Absolute Auto 0.1 X10*3/uL (0.0-0.2); Basophils Percent Auto 0.8 % (0-2); Eosinophils Absolute Auto 0.3 X10*3/uL (0.0-0.4); Eosinophils Percent Auto 5.4 % (0-4); Hematocrit 41.9 % (42.0-52.0); Hemoglobin 13.2 g/dl (14.0-18.0); Imm Gran Abs Auto 0.01 X10*3/uL (0.00-0.03); Imm Gran Pct Auto 0.2 % (0.0-0.4); Lymphocytes Absolute Auto 1.9 X10*3/uL (1.2-4.9); Lymphocytes Percent Auto 31.2 % (20-40); Mean Corpuscular HGB Conc 31.5 g/dl (31.0-36.0); Mean Corpuscular Hemoglobin 28.8 pg (27.0-33.0); Mean Corpuscular Volume 91.5 fL (80.0-98.0); Monocytes Absolute Auto 1.1 X10*3/uL (0.1-1.2); Monocytes Percent Auto 17.8 % (2-11); Neutrophils Absolute Auto 2.7 x10*3/uL (2.0-8.3); Neutrophils Percent Auto 44.6 % (45-73); Platelet Count 179 X10*3/uL (160-400); Red Blood Count 4.58 X10*6/uL (4.60-5.80); Red Cell Distribution Width 13.3 % (11.0-16.0); White Blood Count 6.1 X10*3/uL (4.8-10.8)
[2023-10-05 11:51] LABS: Alanine Aminotransferase 23 U/L (0-40); Albumin Level 4.1 g/dL (3.5-5.0); Alkaline Phosphatase 64 U/L (39-117); Anion Gap 12 (12-20); Aspartate Amino Transferase 26 U/L (5-37); Bilirubin Total 0.5 mg/dL (0.0-1.0); Blood Urea Nitrogen 16 mg/dL (9-16); Carbon Dioxide 28 mmol/L (22-29); Chloride 108 mmol/L (96-108); Cholesterol 142 mg/dL (<200); Estimated Glomerular Filt Rate > 60; Glucose Fasting 90 mg/dL (60-99); HDL Cholesterol 46 mg/dL (>40); LDL Cholesterol Calculated 77 mg/dL (<100); Potassium 4.3 mmol/L (3.3-5.1); Sodium 144 mmol/L (135-145); Total Protein 6.8 g/dL (6.5-8.0); Triglycerides 99 mg/dL (<150)
[2023-10-05 12:02] LABS: Prostate Specific Antigen Scr 0.48 ng/mL (<0.05-4.0)
[2023-10-05 12:09] LABS: TSH reflex Free T4 2.48 uIU/mL (0.32-4.0)
== END 2023-10-05 07:00 | disposition home or self-care (01) ==
LOC: HO.HMGCLDS 06:59
PROVIDERS: PCP Nurse Practitioner Family; Visit Provider Nurse Practitioner Family
DX: Z12.5 Encounter for screening for malignant neoplasm of prostate (principal); I10 Essential (primary) hypertension; F17.200 Nicotine dependence, unspecified, uncomplicated
CPT/HCPCS: 36415; 80053; 80061; 81003; 84153; 84443; 85025

== ENCOUNTER 2023-10-05 09:18 | Outpatient (AMB) | payer MEDICARE, SELFPAY ==
--- NOTE | 2023-10-05 09:55 | A.OFFPC_ITS ---
Vital Signs 10/05/23 09:58 Height 5 ft 9 in Weight 216 lb BMI 31.9 BP 130/80 Blood Pressure Location Lt brachial Position Sitting Pulse 74 Pulse Source Pulse Oximeter Pulse Oximetry (%) 94 Oxygen Delivery Method Room Air Intake Visit Reasons: 3m HTN f/u Intake Note: Patient here to follow up on HTN. Allergies formaldehyde [FORMALDEHYDE] Allergy (Unknown, Verified 10/05/23 09:59) HIVES lanolin Allergy (Verified 10/05/23 09:59) Hives a steroid cream; he is not dimitry Allergy (Unknown, Uncoded 10/05/23 09:59) Unknown [employer] and [employer] Allergy (Unknown, Uncoded 10/05/23 09:59) Unknown Medication List - Last Reconciled 10/05/23 by SANAM Solorio- acetaminophen (Tylenol) 650 mg (2 x 325 mg) PO Q6H PRN amlodipine 10 mg (2 x 5 mg) PO DAILY aspirin 81 mg PO DAILY atorvastatin 40 mg PO BEDTIME 90 days cetirizine 10 mg PO DAILY PRN cholecalciferol (vitamin D3) 125 mcg PO DAILY finasteride 5 mg PO BEDTIME gabapentin 300 mg PO TID 30 days losartan 100 mg PO DAILY nystatin 1 appl topical DAILY oxymetazoline 0.05% 2 sprays intranasal Q12H PRN 5 days prednisone 20 mg PO DAILY 6 days tamsulosin 0.4 mg PO DAILY Tobacco use date assessed: 07/01/23 Fall risk assessment: No Falls in past year Last assessed Fall Risk: 10/05/23 Dental Screening Dental Screen Date: 10/05/23 Did you have a dental visit in the last 12 months?: Yes Did you have a dental problem in the last 6 months where you did not have access to dental care?: No Was dental information given to patient?: Patient has dentist HPI 3m HTN f/u HPI Details HTN: Blood pressure is stable, managed with amlodipine 10mg and losartan 100mg. Denies chest pain, shortness of breath, headache, dizziness, and blurred vision. Smoker: Pt reports getting LDCT scans yearly at [facility] (though appears missing reports). Pt c/o sinus pressure. Recommended sinus rinses at [facility]. Refuses pneumonia and flu vaccines. denies fevers/chills. [facility] Medical History Right shoulder pain Non-rheumatic aortic stenosis Severe aortic stenosis Diverticulosis Umbilical hernia Deformity of left hand Systolic murmur Smoker COPD (chronic obstructive pulmonary disease) Skin cancer Rectus diastasis Surgical History Status post transcatheter aortic valve replacement (TAVR) using bioprosthesis Aortic valve replaced S/P cardiac catheterization History of left hip replacement Family History Father Unknown family medical history Mother No problems noted. Social History Housing: House Alcohol intake: never Patient Tobacco Use Status: Current everyday Tobacco user Tobacco use type: Cigarette Cigarettes Per Day: 15 Years Smoked: 40 years e-Cigarette/Vaping Use: Never Used Second Hand Smoke Exposure: No Current occupational status: employed Cognitive needs: No Hearing needs: No Vision needs: Yes Questionnaire Thrive Questionnaire Date Thrive assessed: 01/20/22 Review of Systems Const Reports as per HPI Physical exam (Primary Care) Vital Signs: Last Vital Signs Pulse 74 10/05/23 09:58 BP 130/80 10/05/23 09:58 Pulse Ox 94 10/05/23 09:58 Oxygen Delivery Method Room Air 10/05/23 09:58 BMI result Body Mass Index 31.9 Tobacco/Smoking Status: Tobacco use Status Tobacco use date assessed 07/01/23 10/05/23 09:57 Patient Tobacco Use Status Current everyday Tobacco 10/05/23 09:57 Tobacco use type Cigarette 10/05/23 09:57 e-Cigarette/Vaping Use Never Used 10/05/23 09:57 Thrive Assessment: Date of Thrive Assessment Date Thrive assessed 01/20/22 10/05/23 09:57 Const General: cooperative Nutritional Appearance: obese Orientation/consciousness: patient oriented x3 Resp Effort & Inspection: normal respiratory effort Auscultation: clear to auscultation bilaterally and diminished lung sounds Cardio Rate: regular rate Rhythm: regular rhythm Heart sounds: S1 normal heart sound present, S2 normal heart sound present and Murmur heart sound present systolic Neuro General: patient oriented x3 Extrem Right lower extremity: no edema Left lower extremity: no edema Psych Appearance: grossly normal Mental Status: mental status grossly normal Speech and movement: Normal speech and movement present Affect: normal affect Attitude: cooperative Thought process: Normal thought process present Thought content: Normal thought content present Insight: Good insight present (Psych) Judgement: Good judgement present (Psych) Assessment and Plan Assessment & Plan (1) HTN (hypertension): Code(s): I10 - Essential (primary) hypertension Plan: Continue to monitor (2) Sinus pressure: Code(s): J34.89 - Other specified disorders of nose and nasal sinuses Plan: Recommended sinus rinses at home Plan The patient agreed to the use of a ophthalmic medical assistant for this encounter. Scribed for MOON Spencer by Rosa Charles ophthalmic medical assistant, on 10/05/2023 at 10:20 EST. Coding Level of Care Code Est Pt Level 3 (74929) Diagnoses HTN (hypertension) I10 Sinus pressure J34.89
[2023-10-05 09:58] VITALS: BP 130/80; PULSE 74; O2SAT 94; BMI 31.9
== END 2023-10-05 14:16 | disposition home or self-care (01) ==
PROVIDERS: PCP Nurse Practitioner Family; Visit Provider Nurse Practitioner Family
DX: I10 Essential (primary) hypertension (principal); J34.89 Other specified disorders of nose and nasal sinuses
CPT/HCPCS: 99213

== ENCOUNTER → 2023-10-06 10:10 | Outpatient (REF) | payer MEDICARE, SELFPAY ==
--- NOTE | 2023-10-06 10:12 | CA_ITS ---
Transthoracic Echocardiogram Patient (Last, First, Middle): Ponce Fitzpatrick R Gender: Male Date of : 1950 Age: 73 Procedure Date: 10/06/2023 Procedure Type: Transthoracic Echocardiogram Location: OP Height: 175.26 cm Weight: 97.98 kg BSA: 2.13 m2 Heart Rate: bpm BP: 140 / 60 mmHg Claims Manager: HYACINTH/JAMIE Referring MD: Froylan Galvan MD Symptoms: Z95.3 - Presence of xenogenic heart valve Study Quality: Adequate ECG Rhythm: Sinus Conclusions: - The left ventricular systolic function is normal. The calculated ejection fraction is 61% by biplane method. - A bioprosthetic aortic valve is present. The prosthetic aortic valve appears to be functioning normally. Findings Left Ventricle Normal left ventricular cavity size. The left ventricular systolic function is normal. The calculated ejection fraction is 61% by biplane method. There is no evidence of regional wall motion abnormalities. Diastolic function is normal for age. There is mild septal asymmetric hypertrophy. LV peak GLS 19.9%. Right Ventricle Normal right ventricular cavity size and systolic function. Atria Both atria are normal in size. Aortic Valve A bioprosthetic aortic valve is present. The prosthetic aortic valve appears to be functioning normally. There is no aortic valve regurgitation. Gradients on the high side, but likely related to high stroke volume. Normal acceleration time. Mitral Valve The mitral valve appears normal. There is no mitral valve regurgitation. There is no mitral valve stenosis. Pulmonic Valve The pulmonic valve is likely normal. Tricuspid Valve Normal tricuspid valve structure. There is trace tricuspid valve regurgitation. There is no evidence of pulmonary hypertension. Great Vessels The asc aorta is normal in size. Venous The inferior vena cava is normal in size and collapses greater than 50% with inspiration. Pericardium/Pleural There is no evidence of pericardial effusion. Prior Study Comparison No significant change compared to prior study dated: 03/25/2023. Measurements 2D Linear Measurements IVSd: 1.10 0.6-0.9/0.6-1.0 cm LVIDd: 5.04 3.9-5.3/4.2-5.9 cm LVIDd Index: 2.37 2.4-3.2/2.2-3.1 cm/m2 LVIDs: 2.56 2.0-3.6 cm LVPWd: 0.76 0.7-1.1 cm Ao Root: 2.10 2.1-3.5 cm LA Diam: 4.00 2.7-3.8/3.0-4.0 cm LAIDs Index: 1.88 1.5-2.3 cm/m2 LV Mass: 207.91 67-162/88-224 g LV Mass Index: 97.61 43-95/49-115 g/m2 LVOT Diam: 2.30 3.0+(-)1.3 cm 2D Systolic Function EF 4C: 62.10 >55% EF 2C: 61.70 >55% EF BiP: 61.00 >55% Mitral Valve MV Pk E: 0.87 MV PK A: 1.05 MV Decel Time: 326.00 E/A: 0.80 E'Lateral: 5.66 E'Medial: 6.96 E/E' Med: 12.40 E/E' Lat: 15.30 PHT: 95.00 MVA PHT: 2.32 Decel [place]: 2.66 Aortic Valve AoV Pk Kane: 3.03 AoV Mn Kane: 1.95 AoV VTI: 0.64 AoV Pk Grad: 37.00 Aov Mn Grad: 18.00 JULIO Cont.VTI: 2.24 LVOT LVOT Pk Kane: 1.42 LVOT Mn Kane: 0.85 LVOT VTI: 0.35 LVOT Pk Grad: 8.00 LVOT Mn Grad: 4.00 LVOT Diam: 2.30 LVOT Area: 4.15 Diastolic Function MV Pk E: 0.87 MV Pk A: 1.05 E/A: 0.80 E'Medial: 6.96 E/E' Med: 12.40 E' Laterial: 5.66 E/E' Lat: 15.30 Right Ventricle TAPSE (mm): 29.50 TVS' Kane: 15.60 Tricuspid Valve TR Pk Kane: 1.94 TR Pk Grad: 15.00 RA Press: 3.00 RVSP: 18.00 Great Vessels Aorta Ao Root-2D: 2.10 2.0-3.7 cm Ao Asc: 3.50 2.1-3.4 cm Updated in Other Vendor System with Status of Final Froylan Galvan MD electronically signed on 10/08/2023 11:35:31 AM with status of Final
== END ==
LOC: HO.CARD 10:10
PROVIDERS: Visit Provider Internal Medicine
DX: Z95.3 Presence of xenogenic heart valve (principal)
CPT/HCPCS: 93306; 93356

== ENCOUNTER → 2023-10-06 10:12 | Outpatient (BNV) | payer MEDICARE, SELFPAY | PROVIDERS: Visit Provider Internal Medicine | DX: Z95.3 Presence of xenogenic heart valve (principal) | CPT/HCPCS: 93306 ==

== ENCOUNTER → 2023-10-07 09:48 | Outpatient (BNVA) | payer MEDICARE, SELFPAY | PROVIDERS: PCP Nurse Practitioner Family; Visit Provider Orthopaedic Surgery ==

== ENCOUNTER 2023-10-12 12:20 | Outpatient (AMB) | payer MEDICARE, SELFPAY ==
[2023-10-12 12:39] VITALS: BP 124/54; PULSE 66; BMI 31.8
--- NOTE | 2023-10-12 12:39 | A.OFFVIS_ITS ---
Intake Vital Signs 10/12/23 12:39 Height 5 ft 9 in Weight 215 lb 9.793 oz BMI 31.8 BP 124/54 L Blood Pressure Location Lt brachial Position Sitting Pulse 66 Intake Visit Reasons: 6mo follow up/Pre-op RT JOYCE 11/04 Dr. 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 Accompanied by: Self / Same As Patient Allergies formaldehyde [FORMALDEHYDE] Allergy (Unknown, Verified 10/12/23 12:42) HIVES lanolin Allergy (Verified 10/12/23 12:42) Hives a steroid cream; he is not dimitry Allergy (Unknown, Uncoded 10/12/23 12:42) Unknown sandi donuts and subway Allergy (Unknown, Uncoded 10/12/23 12:42) Unknown Medication List - Last Reconciled 10/12/23 by Froylan Galvan MD acetaminophen (Tylenol) 650 mg (2 x 325 mg) PO Q6H PRN amlodipine 10 mg (2 x 5 mg) PO DAILY aspirin 81 mg PO DAILY atorvastatin 40 mg PO BEDTIME 90 days cetirizine 10 mg PO DAILY PRN cholecalciferol (vitamin D3) 125 mcg PO DAILY finasteride 5 mg PO BEDTIME gabapentin 300 mg PO TID 30 days losartan 100 mg PO DAILY nystatin 1 appl topical DAILY oxymetazoline 0.05% 2 sprays intranasal Q12H PRN 5 days prednisone 20 mg PO DAILY 6 days tamsulosin 0.4 mg PO DAILY HPI HPI Comments History of Present Illness Details Ponce returns for follow-up. History of transcatheter aortic valve replacement. Medically treated CAD. Overall, he is doing good. No complaints from cardiac like angina or shortness of breath. Needs to go for hip surgery. [facility] Medical History Right shoulder pain Non-rheumatic aortic stenosis Severe aortic stenosis Diverticulosis Umbilical hernia Deformity of left hand Systolic murmur Smoker COPD (chronic obstructive pulmonary disease) Skin cancer Rectus diastasis Surgical History Status post transcatheter aortic valve replacement (TAVR) using bioprosthesis Aortic valve replaced S/P cardiac catheterization History of left hip replacement Family History Father Unknown family medical history Mother No problems noted. Social History Housing: House Alcohol intake: never Patient Tobacco Use Status: Current everyday Tobacco user Tobacco use type: Cigarette Cigarettes Per Day: 15 Years Smoked: 40 years e-Cigarette/Vaping Use: Never Used Second Hand Smoke Exposure: No Current occupational status: employed Cognitive needs: No Hearing needs: No Vision needs: Yes Review of Systems Const Denies weakness ENT Denies dizziness Card Denies chest pain, Denies chest pain with activity, Denies syncope, Denies rapid heart rate, Denies pedal edema, Denies edema, Denies leg edema, Denies lightheadedness, Denies palpitations, Denies dyspnea, Denies dyspnea on exertion and Denies orthopnea Resp Denies cough, Denies dyspnea and Denies dyspnea on exertion GI Denies hematochezia and Denies change in stool character Musc Denies abnormal gait, Denies muscle cramps, Denies muscle weakness, Denies numbness, Denies radiating pain into limb and Denies tingling Neuro Denies abnormal gait, Denies dizziness, Denies syncope, Denies numbness, Denies tingling and Denies weakness Endo Denies palpitations Physical Exam Vital Signs: Last Vital Signs Pulse 66 10/12/23 12:39 BP 124/54 L 10/12/23 12:39 BMI result Body Mass Index 31.8 Const General: comfortable and no acute distress Orientation/consciousness: patient oriented x3 HEENT Other: Unremarkable Head: Yes normal to inspection Neck Neck: Yes normal visual inspection Chest Chest palpation & inspection: normal inspection of the chest Resp Auscultation: clear to auscultation bilaterally Cardio Palpation: normal PMI Heart sounds: S1 normal heart sound present, S2 normal heart sound present, no gallops, Murmur heart sound present systolic II/ and at the right sternal border and no rubs GI Palpation (GI): Soft to palpation Back/Spine/Pelvis Other: unremarkable Skin General skin exam: no rashes or lesions noted Neuro General: patient oriented x3 Extrem General: Yes normal to inspection Psych Mental Status: mental status grossly normal Assessment & Plan Assessment & Plan (1) Status post transcatheter aortic valve replacement (TAVR) using bioprosthesis: Code(s): Z95.3 - Presence of xenogenic heart valve Plan: Status post TAVR. In the most recent echocardiogram, normal bioprosthetic aortic valve function. Otherwise, infective endocarditis prophylaxis per protocol. (2) Coronary artery disease: Code(s): I25.10 - Atherosclerotic heart disease of [place] coronary artery without angina pectoris Plan: Cardiac catheterization shows moderate disease in the mid right coronary artery; severe circumflex stenosis. Continue aspirin and statins. (3) Essential hypertension: Code(s): I10 - Essential (primary) hypertension Plan: Stable. (4) Smoker: Code(s): F17.200 - Nicotine dependence, unspecified, uncomplicated Plan: Have discussed smoking cessation numerous times but not willing to quit. (5) Preoperative cardiovascular examination: Code(s): Z01.810 - Encounter for preprocedural cardiovascular examination Plan: Intermediate cardiac risk for hip surgery. May proceed. Coding Level of Care Code Est Pt Level 4 (70749) Diagnoses Status post transcatheter aortic valve replacement (TAVR) using bioprosthesis Z95.3 Coronary artery disease I25.10 Essential hypertension I10 Smoker F17.200 Preoperative cardiovascular examination Z01.810
== END 2023-10-12 12:59 | disposition home or self-care (01) ==
PROVIDERS: Visit Provider Internal Medicine
DX: Z95.3 Presence of xenogenic heart valve (principal); I25.10 Atherosclerotic heart disease of native coronary artery without angina pectoris; I10 Essential (primary) hypertension; F17.200 Nicotine dependence, unspecified, uncomplicated; Z01.810 Encounter for preprocedural cardiovascular examination
CPT/HCPCS: 99214

== ENCOUNTER → 2023-10-12 12:20 | Outpatient (BNVA) | payer MEDICARE, SELFPAY | PROVIDERS: Visit Provider Internal Medicine | DX: Z01.810 Encounter for preprocedural cardiovascular examination (principal); I25.10 Atherosclerotic heart disease of native coronary artery without angina pectoris; I10 Essential (primary) hypertension; F17.210 Nicotine dependence, cigarettes, uncomplicated; Z95.3 Presence of xenogenic heart valve | CPT/HCPCS: 99212 ==

== ENCOUNTER 2023-10-12 15:08 | Outpatient (AMB) | payer MEDICARE, SELFPAY ==
--- NOTE | 2023-10-12 14:02 | MHC.PC.OV ---
Vital Signs 10/12/23 15:13 10/12/23 16:08 Height 5 ft 9 in Weight 216 lb BMI 31.9 BP 146/72 H 128/70 Blood Pressure Location Rt brachial Rt brachial Position Sitting Sitting Pulse 58 Pulse Source Pulse Oximeter Pulse Oximetry (%) 97 Oxygen Delivery Method Room Air Intake Visit Reasons: Total right hip Arthroplasty Intake Note: Pt is here today for his pre-op for his Rt total hip arthoplasty with Dr. Pham on 10/25/23 Allergies formaldehyde [FORMALDEHYDE] Allergy (Unknown, Verified 10/12/23 15:23) HIVES lanolin Allergy (Verified 10/12/23 15:23) Hives a steroid cream; he is not dimitry Allergy (Unknown, Uncoded 10/12/23 15:23) Unknown sand[employer]uts and subway Allergy (Unknown, Uncoded 10/12/23 15:23) Unknown Tobacco use date assessed: 10/12/23 Fall risk assessment: No Falls in past year Last assessed Fall Risk: 10/12/23 Dental Screening Dental Screen Date: 10/12/23 Did you have a dental visit in the last 12 months?: No Was dental information given to patient?: No HPI Total right hip Arthroplasty HPI Details pt is here for a pre-op eval for a right total hip. He was already cleared by cardiology. EKG done today, NSR. labs also ordered. [facility] Medical History Right shoulder pain Non-rheumatic aortic stenosis Severe aortic stenosis Diverticulosis Umbilical hernia Deformity of left hand Systolic murmur Smoker COPD (chronic obstructive pulmonary disease) Skin cancer Rectus diastasis Surgical History Status post transcatheter aortic valve replacement (TAVR) using bioprosthesis Aortic valve replaced S/P cardiac catheterization History of left hip replacement Family History Father Unknown family medical history Mother No problems noted. Social History Housing: House Alcohol intake: never Patient Tobacco Use Status: Current everyday Tobacco user Tobacco use type: Cigarette Cigarettes Per Day: 15 Years Smoked: 40 years e-Cigarette/Vaping Use: Never Used Second Hand Smoke Exposure: No Current occupational status: employed Cognitive needs: No Hearing needs: No Vision needs: Yes Questionnaire PHQ-9 Over the last 2 weeks, how often have you been bothered by any of the following problems? 1. Little interest or pleasure in doing things: not at all 2. Feeling down, depressed, or hopeless: not at all 3. Trouble falling or staying asleep, or sleeping too much: not at all 4. Feeling tired or having little energy: not at all 5. Poor appetite or overeating: not at all 6. Feeling bad about yourself - or that you are a failure or have let yourself or your family down: not at all 7. Trouble concentrating on things, such as reading the newspaper or watching television: not at all 8. Moving or speaking so slowly that other people could have noticed. Or the opposite - being so fidgety or restless that you have been moving around a lot more than usual: not at all 9. Thoughts that you would be better off or of hurting yourself in some way: not at all Total score: 0 Source: Developed by Drs. Stephen Campbell, Sarah Arzate, Johnny Song and colleagues, with an educational loly from [employer]. Thrive Questionnaire Date Thrive assessed: 10/12/23 I am a: Patient What is your living situation today?: I have a steady place to live Within the past 12 months, did the food you bought not last and you didn't have the money to get more?: Never true Within the past 12 months, did you worry whether your food would run out before you got money to buy more?: Never true Do you have trouble paying for medicines?: No Do you have trouble getting transportation to medical appointments?: No Do you have trouble paying your heating and electricity bill?: No Do you have trouble taking care of your child, family member or friend?: No Do you have trouble with day-to-day activities such as bathing, preparing meals, shopping, managing finances, etc.?: No Are you currently unemployed and looking for a job?: No Are you interested in more education?: No AUDIT C Alcohol Use Questionnaire (AUDIT-C) 1. How often do you have a drink containing alcohol?: Never Total Score: 0 CARINA-7 AMB Questionnaire CARINA-7 Date CARINA - 7 assessed: 10/12/23 Feeling nervous, anxious, or on edge: 0 = Not at all Not being able to stop or control worryin = Not at all Worrying too much about different things: 0 = Not at all Trouble relaxin = Not at all Being so restless that it is hard to sit still: 0 = Not at all Becoming easily annoyed or irritable: 0 = Not at all Feeling afraid as if something awful might happen: 0 = Not at all Total CARINA-7 score (0-4 normal; 5-9 mild; 10-14 moderate; 15-21 severe): 0 Source: Developed by Drs. Stephen Campbell, Sarah Arzate, Johnny Song and colleagues, with an educational loly from [employer]. Physical exam (Primary Care) Vital Signs: Last Vital Signs Pulse 58 10/12/23 15:13 BP 146/72 H 10/12/23 15:13 Pulse Ox 97 10/12/23 15:13 Oxygen Delivery Method Room Air 10/12/23 15:13 BMI result Body Mass Index 31.9 Tobacco/Smoking Status: Tobacco use Status Tobacco use date assessed 10/12/23 10/12/23 15:30 Patient Tobacco Use Status Current everyday Tobacco 10/12/23 14:04 Tobacco use type Cigarette 10/12/23 14:04 e-Cigarette/Vaping Use Never Used 10/12/23 14:04 PHQ-9: PHQ-9 Score PHQ-9: Total score 0 10/12/23 15:30 Thrive Assessment: Date of Thrive Assessment Date Thrive assessed 10/12/23 10/12/23 15:30 Const General: cooperative, healthy appearing and no acute distress HENMT Head: Yes normal to inspection Mouth: Normal oral and palatal mucosa present Eyes General: appearance normal, both eyes and all related structures Neck Neck: No lymphadenopathy Resp Effort & Inspection: normal respiratory effort Auscultation: diminished lung sounds Cardio Rate: regular rate Rhythm: regular rhythm Heart sounds: S1 normal heart sound present, S2 normal heart sound present and Murmur heart sound present systolic Extrem Right lower extremity: no edema Left lower extremity: no edema Psych Appearance: grossly normal and well kempt Affect: normal affect Attitude: cooperative Thought process: Normal thought process present Thought content: Normal thought content present Insight: Good insight present (Psych) Judgement: Good judgement present (Psych) Assessment and Plan Assessment & Plan (1) Pre-op evaluation: Code(s): Z01.818 - Encounter for other preprocedural examination Orders: Orders AMB EKG-In Office Today Z01.818 - Encounter for other preprocedural examination Complete Blood Count Auto Diff Today Z01.818 - Encounter for other preprocedural examination Hemoglobin A1c Today Z01.818 - Encounter for other preprocedural examination Comprehensive [place]. Panel Fast Today Z01.818 - Encounter for other preprocedural examination Coding Level of Care Code Est Pt Prev Care >65y(39727) Diagnoses Pre-op evaluation Z01.818
[2023-10-12 15:13] VITALS: BP 146/72; PULSE 58; O2SAT 97; BMI 31.9
[2023-10-12 16:08] VITALS: BP 128/70
== END 2023-10-12 16:17 | disposition home or self-care (01) ==
PROVIDERS: PCP Nurse Practitioner Family; Visit Provider Nurse Practitioner Family
DX: Z01.818 Encounter for other preprocedural examination (principal); M16.11 Unilateral primary osteoarthritis, right hip
CPT/HCPCS: 93000; 99213

== ENCOUNTER 2023-10-13 07:23 | Outpatient (REF) | payer MEDICARE, SELFPAY ==
[2023-10-13 12:02] LABS: MANUAL DIFF FLAG NO
[2023-10-13 12:21] LABS: Basophils Percent Auto 0.5 % (0-2); Eosinophils Absolute Auto 0.3 X10*3/uL (0.0-0.4); Eosinophils Percent Auto 4.3 % (0-4); Hematocrit 42.2 % (42.0-52.0); Hemoglobin 13.7 g/dl (14.0-18.0); Imm Gran Abs Auto 0.02 X10*3/uL (0.00-0.03); Imm Gran Pct Auto 0.3 % (0.0-0.4); Lymphocytes Absolute Auto 2.1 X10*3/uL (1.2-4.9); Lymphocytes Percent Auto 28.4 % (20-40); Mean Corpuscular HGB Conc 32.5 g/dl (31.0-36.0); Mean Corpuscular Hemoglobin 28.7 pg (27.0-33.0); Mean Corpuscular Volume 88.5 fL (80.0-98.0); Mean Platelet Volume 11.1 fL (9.4-12.4); Monocytes Absolute Auto 0.9 X10*3/uL (0.1-1.2); Monocytes Percent Auto 11.5 % (2-11); Neutrophils Absolute Auto 4.1 x10*3/uL (2.0-8.3); Platelet Count 186 X10*3/uL (160-400); Red Blood Count 4.77 X10*6/uL (4.60-5.80); Red Cell Distribution Width 13.4 % (11.0-16.0); White Blood Count 7.5 X10*3/uL (4.8-10.8)
[2023-10-13 12:36] LABS: Alanine Aminotransferase 25 U/L (0-40); Albumin Level 4.2 g/dL (3.5-5.0); Alkaline Phosphatase 64 U/L (39-117); Anion Gap 11 (12-20); Aspartate Amino Transferase 25 U/L (5-37); Bilirubin Total 0.6 mg/dL (0.0-1.0); Blood Urea Nitrogen 19 mg/dL (9-16); Calcium 9.6 mg/dL (8.4-10.2); Carbon Dioxide 27 mmol/L (22-29); Chloride 108 mmol/L (96-108); Estimated Glomerular Filt Rate > 60; Glucose Fasting 90 mg/dL (60-99); Potassium 4.4 mmol/L (3.3-5.1); Sodium 142 mmol/L (135-145)
[2023-10-13 12:37] LABS: Estimated Average Glucose 105 mg/dL; Hemoglobin A1c % 5.3 % (<6.0)
== END 2023-10-13 07:24 | disposition home or self-care (01) ==
LOC: HO.HMGCLDS 07:23
PROVIDERS: PCP Nurse Practitioner Family; Visit Provider Nurse Practitioner Family
DX: Z01.818 Encounter for other preprocedural examination (principal)
CPT/HCPCS: 36415; 80053; 83036; 85025

== ENCOUNTER 2023-10-20 10:49 | Outpatient (AMB) | payer MEDICARE, SELFPAY ==
[2023-10-20 10:58] VITALS: BMI 31.9
--- NOTE | 2023-10-20 10:58 | A.OFFVIS_ITS ---
Intake Vital Signs 10/20/23 10:58 Height 5 ft 9 in Weight 216 lb BMI 31.9 Intake Visit Reasons: Preop-RT JOYCE 10/25/23 Intake Note: Mr. Fitzpatrick is a 73-year-old male who presents with complaints of progressively worsening right hip pain. Patient did undergo left total hip replacement surgery in [address] Chavarria. The patient reports mild intermittent discomfort along the lateral aspect of his left hip. 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 He denies any fevers or chills. He describes his right hip pain as sharp and severe in nature, 07/20. Most of his right hip pain is located within his groin. He has done physical therapy for 12 weeks over the last 6 months which aggravated his pain. The patient has difficulty walking even short distances because of his pain. At this point is right hip pain is interfering with his activities of daily living and his ability to sleep well through the night. The patient does walk with a cane. Allergies formaldehyde [FORMALDEHYDE] Allergy (Unknown, Verified 10/20/23 11:09) HIVES lanolin Allergy (Verified 10/20/23 11:09) Hives a steroid cream; he is not dimitry Allergy (Unknown, Uncoded 10/12/23 15:23) Unknown sand[employer]uts and subway Allergy (Unknown, Uncoded 10/12/23 15:23) Unknown Medication List - Last Reviewed 10/20/23 by Joie Long CMA acetaminophen (Tylenol) 650 mg (2 x 325 mg) PO Q6H PRN amlodipine 10 mg (2 x 5 mg) PO DAILY aspirin 81 mg PO DAILY atorvastatin 40 mg PO BEDTIME 90 days [bedside commode As directed] cholecalciferol (vitamin D3) 125 mcg PO DAILY finasteride 5 mg PO BEDTIME gabapentin 300 mg PO TID 30 days losartan 100 mg PO DAILY nystatin 1 appl topical DAILY [Raised toliet seat As directed] tamsulosin 0.4 mg PO DAILY walker Folding front wheeled walker [facility] Medical History Right shoulder pain Non-rheumatic aortic stenosis Severe aortic stenosis Diverticulosis Umbilical hernia Deformity of left hand Systolic murmur Smoker COPD (chronic obstructive pulmonary disease) Skin cancer Rectus diastasis Surgical History Status post transcatheter aortic valve replacement (TAVR) using bioprosthesis Aortic valve replaced S/P cardiac catheterization History of left hip replacement Family History Father Unknown family medical history Mother No problems noted. Social History Housing: House Alcohol intake: never Patient Tobacco Use Status: Current everyday Tobacco user Tobacco use type: Cigarette Cigarettes Per Day: 15 Years Smoked: 40 years e-Cigarette/Vaping Use: Never Used Second Hand Smoke Exposure: No Current occupational status: employed Cognitive needs: No Hearing needs: No Vision needs: Yes Physical Exam Vital Signs: BMI result Body Mass Index 31.9 Const Other: Well-nourished well-developed very friendly male awake alert and oriented x3 in no acute distress Lungs - clear to auscultation bilaterally with symmetric expansion Cardiovascular exam - regular rate and rhythm Abdominal exam - soft nontender nondistended Extrem Other: Bilateral lower extremity examination shows good capillary refill, no skin lesions noted, normal sensation light touch Right hip examination shows decreased range of motion when compared to his left hip, pain with range of motion, no tenderness over his bursa Results Reviewed Results Reviewed: X-rays of the patient's right hip show grade 4 end-stage degenerative joint disease with [id number] arthritis, subchondral sclerosis, osteophyte formation, no acute bony abnormalities Assessment & Plan Assessment & Plan (1) Osteoarthritis of right hip: Code(s): M16.11 - Unilateral primary osteoarthritis, right hip Plan Mr. Fitzpatrick presents with progressively worsening right hip pain due to end- stage degenerative joint disease. I had a lengthy discussion with the patient regarding the treatment options. At this point he has failed continued non operative treatments. The risks and benefits of right total hip replacement surgery were discussed at length with the patient. The patient wishes to proceed with surgery. youth services librarian will be consulted following his surgery for inpatient rehabilitation at [facility]. The patient did very well at [facility] following his left total hip replacement surgery. The patient will follow-up as instructed. Feel free to call me at any time should questions regarding his orthopedic management arise. I spent 22 minutes in reviewing the patient's records and imaging studies, seeing the patient and documenting in the medical record. Coding Level of Care Code Est Pt Level 2 (78950) Diagnoses Osteoarthritis of right hip M16.11
== END 2023-10-20 11:23 | disposition home or self-care (01) ==
PROVIDERS: PCP Nurse Practitioner Family; Visit Provider Orthopaedic Surgery
DX: M16.11 Unilateral primary osteoarthritis, right hip (principal)
CPT/HCPCS: 99024

== ENCOUNTER → 2023-10-20 10:49 | Outpatient (BNVA) | payer MEDICARE, SELFPAY | PROVIDERS: PCP Nurse Practitioner Family; Visit Provider Orthopaedic Surgery | DX: M16.11 Unilateral primary osteoarthritis, right hip (principal) | CPT/HCPCS: 99212 ==

== ENCOUNTER 2023-10-25 08:02 | Inpatient (IN) | payer MEDICARE, SELFPAY ==
[2023-10-20 12:40] VITALS: BP 144/67; PULSE 60; RESP 16; O2SAT 94; BMI 31.9
--- NOTE | 2023-10-20 13:01 | HO.ANESPROP2 ---
Documented by User: Cassidy Fountain NP 10/20/23 13:12 HPI - Anesthesia Eval Consult details Narrative: 73yo M for Right Hip Total Replacement Cardiac cleared PCP cleared RSV 3 weeks ago. Tx with abx. Productive cough is resolving. No CP/SOB within minimal activity. Limited by pain s/p TAVR. 02/2023. ? plavix. Aspirin 81mg COPD/Smoker. Never uses inhalers. Only rescue rx'd. PMFSH Active Problems Active Problems: All Active Problems (Updated 10/20/23 @ 12:27 by Clarissa Gallegos RN) Osteoarthritis of right hip (Acute) Pre-op evaluation (Acute) Preoperative cardiovascular examination (Acute) Sinus pressure (Acute) Atopic dermatitis (Acute) Arthritis of right hip (Acute) Anemia (Acute) Fatigue (Acute) Right hip pain (Acute) Pruritic rash (Acute) Contact dermatitis (Acute) Coronary artery disease (Acute) Visit for wound check (Acute) Pre-procedural laboratory examination (Acute) HTN (hypertension) (Acute) Osteoporosis (Acute) Postmenopausal (Acute) Encounter for annual wellness visit (AWV) in Medicare patient (Acute) HTN (hypertension) (Acute) Hemorrhoid (Acute) Vitamin D deficiency (Acute) Lumbar canal stenosis (Acute) Weakness of right leg (Acute) Low back pain radiating to lower extremity (Acute) Lower back pain (Acute) Essential hypertension (Acute) Sinusitis (Acute) Skin cancer (Acute) Erectile dysfunction (Acute) Fatigue (Acute) Hyperkalemia (Acute ~02/21/21) Dyslipidemia (Acute) Erectile dysfunction (Acute) Screening for colon cancer (Acute) PVC (premature ventricular contraction) (Acute) Screening PSA (prostate specific antigen) (Acute) Physical exam (Acute) Smoker (Acute) Status post transcatheter aortic valve replacement (TAVR) using bioprosthesis (Acute) Right shoulder pain (Acute) S/P cardiac catheterization (Acute) Non-rheumatic aortic stenosis (Acute) Severe aortic stenosis (Acute) Systolic murmur (Acute) Past Medical History Medical History Arthritis Enlarged prostate Cough Elevated cholesterol HTN (hypertension) Right shoulder pain Non-rheumatic aortic stenosis Severe aortic stenosis Diverticulosis Umbilical hernia Deformity of left hand Systolic murmur Smoker COPD (chronic obstructive pulmonary disease) Skin cancer Rectus diastasis Family History Family History Father Unknown family medical history Mother No problems noted. Family history of problems with anesthesia: No Surgical History Surgical History Hx of hand surgery H/O colonoscopy Status post transcatheter aortic valve replacement (TAVR) using bioprosthesis Aortic valve replaced S/P cardiac catheterization History of left hip replacement History of Problems with Anesthesia: No Social History Social History Housing: House Are you a primary healthcare customer service to a significant other at home: No Do you presently have visiting nurse or other home services: No Alcohol intake: never Patient Tobacco Use Status: Current everyday Tobacco user Tobacco use type: Cigarette Cigarettes Per Day: 10 Years Smoked: 55 e-Cigarette/Vaping Use: Never Used Second Hand Smoke Exposure: No Current occupational status: employed Cognitive needs: No Hearing needs: No Vision needs: Yes Meds Allergies Allergy/AdvReac Type Severity Reaction Status Date / Time formaldehyde [FORMALDEHYDE] Allergy Unknown HIVES Verified 10/25/23 08:15 lanolin Allergy Hives Verified 10/25/23 08:15 propylene glycol Allergy Rash Verified 10/25/23 08:15 a steroid cream; he is not Allergy Unknown Unknown Uncoded 10/25/23 08:15 [employer] Allergy Unknown Unknown Uncoded 10/12/23 15:23 Home Medications Medication Instructions Recorded Confirmed Last Taken Type finasteride 5 mg tablet 5 mg PO BEDTIME 08/08/20 10/20/23 Unknown History cholecalciferol (vitamin D3) 125 125 mcg PO DAILY 07/29/22 10/20/23 Unknown History mcg (5,000 unit) capsule tamsulosin 0.4 mg capsule 0.4 mg PO BEDTIME 07/29/22 10/20/23 Unknown History acetaminophen 500 mg tablet 500 mg PO BID PRN Pain 10/20/23 10/20/23 Unknown History amlodipine 5 mg tablet 5 mg PO BID 10/20/23 10/20/23 Unknown History losartan 100 mg tablet 100 mg PO BEDTIME 10/20/23 10/20/23 Unknown History Exam Height,Weight and Vital Signs: Height 5 ft 9 in Weight 97.976 kg Last Vital Signs Pulse 60 10/20/23 12:40 Resp 16 10/20/23 12:40 BP 144/67 H 10/20/23 12:40 Pulse Ox 94 10/20/23 12:40 O2 Del Method Room Air 10/20/23 12:40 Pertinent Lab Results Pertinent Lab Results: Laboratory Tests 10/13/23 10/13/23 07:30 07:31 WBC 7.5 Hgb 13.7 L Hct 42.2 Plt Count 186 Sodium 142 Potassium 4.4 Chloride 108 Carbon Dioxide 27 BUN 19 H Creatinine 1.18 Narrative Narrative: EKG 10/2023 NSR @ 67 ECHO 09/2023 Conclusions: - The left ventricular systolic function is normal. The calculated ejection fraction is 61% by biplane method. - A bioprosthetic aortic valve is present. The prosthetic aortic valve appears to be functioning normally. Airway Mallampati Class: III Neck ROM: Full Denture: Upper Partial: Lower Loose/Missing/Broken Teeth: No (only 1 lower right tooth remains - stable) Heart: RRR Lungs: CTAB Assessment and Plan Assessment Anesthesia Assessment: Anesthesia Plan Discussed, Smoking Cess. Discussed and PAT Visit Final Anesthetic Review Family History of Problems with Anesthesia: No History of Problems with Anesthesia: No Documented by User: Emily Ny MD 10/25/23 11:35 HPI - Anesthesia Eval Consult details Narrative: 73yo M for Right Hip Total Replacement Cardiac cleared PCP cleared RSV 09/27/23. Tx with abx. Productive cough is resolving. No CP/SOB within minimal activity. Limited by pain s/p TAVR. 02/2023. ? plavix. Aspirin 81mg COPD/Smoker. Never uses inhalers. Only rescue rx'd. Interval note 10/25/23; Still with occasional cough-whitish/clear sputum. No fever. No malaise. Still smoking. H/o CPOD-not using inhalers-only rescue inhaler prn. Sats 94%(RA). No change in O2 saturation post respiratory treatment PMFSH Active Problems Active Problems: All Active Problems (Updated 10/20/23 @ 12:27 by Clarissa Gallegos RN) Osteoarthritis of right hip (Acute) Pre-op evaluation (Acute) Preoperative cardiovascular examination (Acute) Sinus pressure (Acute) Atopic dermatitis (Acute) Anemia (Acute) 10/13/23 H/H 13.7/44.2 Right hip pain (Acute) Pruritic rash (Acute) Contact dermatitis (Acute) Coronary artery disease (Acute) Visit for wound check (Acute) HTN (hypertension) (Acute) Osteoporosis (Acute) Hemorrhoid (Acute) Vitamin D deficiency (Acute) Lumbar canal stenosis (Acute) Weakness of right leg (Acute) Low back pain radiating to lower extremity (Acute) Sinusitis (Acute) Fatigue (Acute) H/o Hyperkalemia (02/05/21) K+ 10/13/23 4.4 Dyslipidemia (Acute) Erectile dysfunction (Acute) Screening for colon cancer (Acute) PVC (premature ventricular contraction) (Acute) Smoker (Acute) Severe Aortic stenosis. Status post transcatheter aortic valve replacement (TAVR) using bioprosthesis (Acute) Right shoulder pain (Acute) S/P cardiac catheterization (Acute) Non-rheumatic aortic stenosis (Acute) Systolic murmur (Acute) Past Medical History Medical History Arthritis Enlarged prostate Cough Elevated cholesterol HTN (hypertension) Right shoulder pain Non-rheumatic aortic stenosis Severe aortic stenosis Diverticulosis Umbilical hernia Deformity of left hand Systolic murmur Smoker COPD (chronic obstructive pulmonary disease) Skin cancer Rectus diastasis Family History Family History Father Unknown family medical history Mother No problems noted. Surgical History Surgical History Hx of hand surgery H/O colonoscopy Status post transcatheter aortic valve replacement (TAVR) using bioprosthesis Aortic valve replaced S/P cardiac catheterization History of left hip replacement Social History Social History Housing: House Are you a primary healthcare customer service to a significant other at home: No Do you presently have visiting nurse or other home services: No Alcohol intake: never Patient Tobacco Use Status: Current everyday Tobacco user Tobacco use type: Cigarette Cigarettes Per Day: 10 Years Smoked: 55 e-Cigarette/Vaping Use: Never Used Second Hand Smoke Exposure: No Current occupational status: employed Cognitive needs: No Hearing needs: No Vision needs: Yes Meds Allergies Allergy/AdvReac Type Severity Reaction Status Date / Time formaldehyde [FORMALDEHYDE] Allergy Unknown HIVES Verified 10/25/23 08:15 lanolin Allergy Hives Verified 10/25/23 08:15 propylene glycol Allergy Rash Verified 10/25/23 08:15 a steroid cream; he is not Allergy Unknown Unknown Uncoded 10/25/23 08:15 [employer] Allergy Unknown Unknown Uncoded 10/12/23 15:23 Home Medications Medication Instructions Recorded Confirmed Last Taken Type finasteride 5 mg tablet 5 mg PO BEDTIME 08/08/20 10/20/23 Unknown History cholecalciferol (vitamin D3) 125 125 mcg PO DAILY 07/29/22 10/20/23 Unknown History mcg (5,000 unit) capsule tamsulosin 0.4 mg capsule 0.4 mg PO BEDTIME 07/29/22 10/20/23 Unknown History acetaminophen 500 mg tablet 500 mg PO BID PRN Pain 10/20/23 10/20/23 Unknown History amlodipine 5 mg tablet 5 mg PO BID 10/20/23 10/20/23 Unknown History losartan 100 mg tablet 100 mg PO BEDTIME 10/20/23 10/20/23 Unknown History Exam Height,Weight and Vital Signs: Height 5 ft 9 in Weight 97.976 kg Last Vital Signs Pulse 60 10/20/23 12:40 Resp 16 10/20/23 12:40 BP 144/67 H 10/20/23 12:40 Pulse Ox 94 10/20/23 12:40 O2 Del Method Room Air 10/20/23 12:40 Vital Signs Temp Pulse Resp BP Pulse Ox O2 Del Method 10/25/23 09:15 71 16 10/25/23 08:49 97.9 F 66 18 136/55 L 94 Room Air Pertinent Lab Results Pertinent Lab Results: Laboratory Tests 10/13/23 10/13/23 07:30 07:31 WBC 7.5 Hgb 13.7 L Hct 42.2 Plt Count 186 Sodium 142 Potassium 4.4 Chloride 108 Carbon Dioxide 27 BUN 19 H Creatinine 1.18 Lab Results 01/10/24 01/10/24 Range/Units 12:53 13:50 Nasal Screen MRSA (PCR) NEGATIVE (Negative) Nasal S. aureus Screen NEGATIVE (Negative) Nasal MRSA/S.aureus Interp SEE NOTE Blood Type B Positive Antibody Screen NEGATIVE Airway TM Dist: >3cm Loose/Missing/Broken Teeth: Yes (Only 1 lower right tooth remains - stable) Lungs: CTAB. Diminished. No wheezes Assessment and Plan Assessment Anesthesia Assessment: Chart Reviewed Final Anesthetic Review NPO: Yes ASA Class: III Final Preanesthetic Review: No Changes in Pt Med Stat, Meds/Allgs Chart Reviewed, Consent Obtained/Reviewed and Anes Risks/Benef Reviewed Patient Risk: Intermediate Procedure Risk: Intermediate Assessment/Block/Sedation in SS: Assess/Block/Sedation-SS Anesthetic Plan Anesthetic Plan: GA Disposition: Standard PACU and Inp. Admit - Standard Bed
[2023-10-20 15:32] LABS: MRSA Nasal PCR NEGATIVE (Negative); SA Nasal PCR NEGATIVE (Negative)
[2023-10-25] VITALS (14 sets, daily range): BP systolic 114–158; BP diastolic 30–90; PULSE 64–83; RESP 12–20; TEMP 36.2–37.6; O2SAT 92–98; BMI 30.6
--- NOTE | ~2023-10-25 | XR_ITS ---
EXAMINATION: XR CHEST CLINICAL INFORMATION: Bilateral rhonchi cough recent RSV infection COMPARISON: Chest radiograph from 09/27/2023 TECHNIQUE: Frontal view of the chest was obtained. FINDINGS: Left basilar atelectasis. Slight bronchial thickening which can be seen in the setting of infectious/inflammatory etiology. No pneumothorax. Trachea is midline. Cardiomediastinal silhouette is not enlarged. No large pleural effusion. Osseous structures are intact. Surgical clips right axilla. XR/XR chest 1V IMPRESSION: 1. Left basilar atelectasis. 2. Slight bronchial thickening which can be seen in the setting of infectious/inflammatory etiology.
--- NOTE | ~2023-10-25 | XR_ITS ---
EXAMINATION: XR PELVIS CLINICAL INFORMATION: Status post right total hip arthroplasty. COMPARISON: Right hip 05/04/2023. TECHNIQUE: AP view of the pelvis. FINDINGS: There is a total bilateral hip prosthesis with prosthetic components in satisfactory alignment. There is no loosening seen. Solitary cerclage wire surrounds proximal right femoral prosthesis and femur. XR/XR pelvis 1-2V IMPRESSION: Total bilateral hip prosthesis with prosthetic components in satisfactory alignment.
--- OUTSIDE RECORDS SUMMARY | 2023-10-25 08:05 | XMS_ITS | Continuity of Care Document ---
Author Name Unknown Organization [facility] ter Address [address] [place] [address]- Care Team Providers Care Inbound Sales Advisor Name Role Phone Brigette CARPENTER, Luis Sanchez Primary Care Physician [place] [facility] [place] - 11/06/[address] [address] Attending Physician: Luis Machuca MD Admitting Physician: Luis Machuca MD Referring Physician: Lius Machuca MD Allergies, Adverse Reactions, Alerts Substance Reaction Severity Status formaldehyde topical Active Augmentin Active Other Environmental Allergy 1 Active 1lotion Medications acetaminophen 325 mg oral tablet = 650 mg, By Mouth, Every 4 hours, PRN Headache Pain , Mild, Temperature Greater than 100.5, 0 Refills, Maintenance, 09/03/15 11:44:24, Tablet Start Date: 09/03/15 Status: Ordered Colace sodium 100 mg oral capsule 2 capsule = 200 mg, By Mouth, Daily, # 60 capsule, 11 Refills, Maintenance, 11/19/15 10:29:07, 2 capsule By Mouth Daily,x30 days Start Date: 11/19/15 Stop Date: 11/13/16 Status: Ordered Dulcolax 10 mg rectal suppository See Instructions, 1 supp Rectally if no BM by day 3, # 12 supp, 1 Refills, Maintenance, 11/19/15 10:31:48, 1 supp Rectally if no BM by day 3 Start Date: 11/19/15 Status: Ordered Fleet Enema 133 mL, Rectally, Once, 0 Refills, Maintenance, 11/19/15 9:49:57 Start Date: 11/19/15 Status: Ordered Magnesium Citrate Liquid 300 mL, By Mouth, Once, 0 Refills, Maintenance, 11/19/15 9:49:36 Start Date: 11/19/15 Status: Ordered MiraLax oral powder for reconstitution See Instructions, 17 Gm By Mouth Daily dissolve in water or juice, # 527 Gm, 1 Refills, Maintenance, 11/19/15 10:29:52, 17 Gm By Mouth Daily; dissolve in water or juice Start Date: 11/19/15 Status: Ordered Problem List Condition Effective Dates Status Health Status Inform ant Disease of prostate(Confirmed) Active Dyspnea(Confirmed) Active Tobacco abuse(Confirmed) Active Social History Social History Type Response Smoking Status Current every day sm oker; Other: patient stated he smokes half a pack a day of the mildest cigarettes they sell ; entered on: 09/03/15 Sex
--- OUTSIDE RECORDS SUMMARY | 2023-10-25 08:06 | XMS_ITS | Continuity of Care Document ---
Author Name Unknown Organization [facility] Address [address] [address]- Care Team Providers Care Laundry Marker Supervisor Name Role Phone Brigette CARPENTER, Luis Sanchez Primary Care Physician [phone] Encounter [facility] [place] [facility] [id number] Date(s): 07/04/20 - 08/03/20 [facility] [address] [place] [address] [facility] Attending Physician: Gabriele Woodward Admitting Physician: AdmtrGabriele Referring Physician: Admtr, Ar8 Allergies, Adverse Reactions, Alerts Substance Reaction Severity [...]
--- OUTSIDE RECORDS SUMMARY | 2023-10-25 08:06 | XMS_ITS | Continuity of Care Document ---
Author Name Unknown Organization [facility] Address [address] [place] [address]- Care Team Providers Care Mobile Sales Expert Name Role Phone Vicky GASPAR, Efraín Rendon Primary Care Physician [phone] Encounter [facility] [place] Date(s): 01/13/23 - 03/03/[address] [address]- Encounter Diagnosis Pain in left hip(Final) - Discharge Disposition: A-D/C Home Attending Physician: Anthony Bertrand Admitting Physician: Anthony Bertrand Referring Physician: Anthony Bertrand Allergies, Adverse Reactions, Alerts Substance Reaction Severity Status formaldehyde topical Active Augmentin Active Other Environmental Allergy 1 Active 1lotion Immunizations Given and Recorded Vaccine Date Status Refusal Reason SARS-CoV-2 (COVID-19) mRNA BNT-162b2 vac 10/03/21 Recorded SARS-CoV-2 (COVID-19) mRNA BNT-162b2 vac 01/23/21 Recorded SARS-CoV-2 (COVID-19) mRNA BNT-162b2 vac 01/01/21 Recorded tetanus/diphtheria/pertussis, acel(Tdap) 03/20/21 Recorded tetanus-diphtheria toxoids (Td) 07/28/05 Recorded Medications amLODIPine 5 mg oral tablet 1 tablet = 5 mg, By Mouth, Daily, # 30 tablet, 0 Refills, Maintenance, 03/01/23 8:07:00 EDT, Tablet, Partial fill upon patient request if the prescription is for a schedule II opioid drug. Start Date: 03/01/23 Status: Ordered aspirin 81 mg oral delayed release tablet 81 mg, 1, tablet, By Mouth, Daily, # 30 tablet, Refills 0, Maintenance, 01/20/23 16:44:00 EDT, Partial fill upon patient request if the prescription is for a schedule II opioid drug. Start Date: 01/20/23 Status: Ordered atorvastatin 20 mg oral tablet 1 tablet = 20 mg, By Mouth, Daily, # 90 tablet, 0 Refills, Maintenance, 08/12/22 15:08:00 EDT, Tablet, Partial fill upon patient request if the prescription is for a schedule II opioid drug. Start Date: 08/12/22 Status: Ordered clopidogrel 75 mg oral tablet 75 mg, 1, tablet, By Mouth, Daily, # 30 tablet, Refills 0, Tot. Refills 0, Maintenance, 03/02/23 10:09:00 EDT, Route to Pharmacy Electronically, [facility]/pharmacy #[id number], Partial fill upon patient request if the prescription is for a schedule II opioid drug... Start Date: 03/02/23 Status: Ordered finasteride 5 mg oral tablet 1 tablet = 5 mg, By Mouth, Daily, # 30 tablet, 0 Refills, Maintenance, 08/12/22 15:08:00 EDT, Tablet, Partial fill upon patient request if the prescription is for a schedule II opioid drug. Start Date: 08/12/22 Status: Ordered gabapentin 300 mg oral capsule 300 mg, 1, capsule, By Mouth, 3 times a day, Refills 0, Maintenance, 08/12/22 15:09:00 EDT, Partialfill upon patient request if the prescription is for a schedule II opioid drug. Start Date: 08/12/22 Status: Ordered Labs Labs, See Instructions, # 1 each, Refills 0, Tot. Refills 0, Maintenance, BMP labs within 2 weeks, 03/02/23 10:30:00 EDT, Supply Start Date: 03/02/23 Status: Ordered losartan 100 mg oral tablet 1 tablet = 100 mg, By Mouth, Daily, # 30 tablet, 0 Refills, Maintenance, 11/17/22 8:36:00 EST, Tablet, Partial fill upon patient request if the prescription is for a schedule II opioid drug. Start Date: 11/17/22 Status: Ordered naproxen 500 mg (as sodium) oral tablet, extended release 2 tablet = 1,000 mg, By Mouth, Daily, PRN as needed for pain, # 20 tablet, 0 Refills, Maintenance, 08/12/22 15:09:00 EDT, ER Tablet, Partial fill upon patient request if the prescription is for a schedule II opioid drug. Start Date: 08/12/22 Status: Ordered tamsulosin 0.4 mg oral capsule 0.4 mg, 1, capsule, By Mouth, Daily, # 30 capsule, Refills 0, Maintenance, 08/12/22 15:09:00 EDT, Partial fill upon patient request if the prescription is for a schedule II opioid drug. Start Date: 08/12/22 Status: Ordered Tylenol with Codeine #4 By Mouth, Every 6 hours, 0 Refills, Maintenance, 01/20/23 16:44:00 EDT, Partial fill upon patient request if the prescription is for a schedule II opioid drug. Start Date: 01/20/23 Status: Ordered Vitamin D3 1000 intl units oral capsule 1 capsule = 25 mcg, By Mouth, Daily, # 75 capsule, 0 Refills, Maintenance, 08/12/22 15:09:00 EDT, Capsule, Partial fill upon patient request if the prescription is for a schedule II opioid drug. Start Date: 08/12/22 Status: Ordered Problem List Condition Confirmation Course Effective Dates Status H ealth Status Informant Aortic stenosis Confirmed Active COPD (chronic obstructive pulmonary disease) Confirmed Active Disease of prostate Confirmed Active Dyspnea Confirmed Active Hyperlipidemia Confirmed Active HTN (hypertension) Confirmed Active Obese class I Confirmed Active Smoking Confirmed Active Tobacco abuse Confirmed Active Social History Social History Type Response Smoking Status 10 or more cigarette s (1/2 pack or more)/day in last 30 days entered on: 01/20/23 Sex Patient Care team information Care Team Personnel Name: Efraín Perry NP Position: Reference Physician Member Role: PCP Address: Address: [address] [place] [address] Name: Lisbet Slater RN Position: Geraldo RN Member Role: Primary Care Nurse Care Team Related Persons Name: JERICA SANABRIA Name: JERICA BLACKWELL Name: STATES, NONE
--- OUTSIDE RECORDS SUMMARY | 2023-10-25 08:06 | XMS_ITS | Continuity of Care Document ---
Author Name Unknown Organization [facility] ter Address [address] [place] [address]- Care Team Providers Care Formula Maker Name Role Phone Brigette CARPENTER, Luis Sanchez Primary Care Physician [phone] [place] [facility] [place] 01/23/[address] [address] [facility] Attending Physician: Luis Machuca MD Allergies, Adverse Reactions, Alerts Substance [...]
--- OUTSIDE RECORDS SUMMARY | 2023-10-25 08:06 | XMS_ITS | Continuity of Care Document ---
Author Name Unknown Organization [facility] Address [address] [place] [address]- Care Team Providers Care Airframe Design Engineer Name Role Phone Vicky GASPAR, Efraín Rendon Primary Care Physician [place] [facility] [place] 06/[place]/23 [facility] [address] [place] [address]- Attending Physician: Gabriele Woodward Admitting Physician: Gabriele Woodward Referring Physician: AdmtrGabriele Allergies, Adverse Reactions, Alerts Substance Reaction Severity [...] Daily, # 90 tablet, 0 Refills, Maintenance, 11/02/22 15:08:00 EDT, Tablet, Partial fill upon patient request if the prescription is for a schedule II opioid drug. Start Date: 08/12/22 Status: Ordered clopidogrel 75 mg oral tablet 75 mg, 1, tablet, By Mouth, Daily, # 30 tablet, Refills 5, Tot. Refills 5, Maintenance, 04/05/23 9:30:00 EDT, Route to Pharmacy Electronically, [facility]/pharmacy #[id number], Partial fill upon patient request if the prescription is for a schedule II opioid drug.... Start Date: 04/05/23 Status: Ordered finasteride 5 mg oral tablet [...] Reference Physician Member Role: PCP Address: Address: [address] [place] [id number] Name: Lisbet Slater RN Position: S RN Member Role: Primary Care Nurse Care Team Related Persons Name: JERICA SANABRIA Name: JERICA BLACKWELL Name: STATES, NONE
--- OUTSIDE RECORDS SUMMARY | 2023-10-25 08:06 | XMS_ITS | Continuity of Care Document ---
Author Name Unknown Organization [facility] ter Address [address] [place] [address]- Care Team Providers Care Pathology Secretary Name Role Phone Brigette CARPENTER, Luis Sanchez Primary Care Physician Encounter [facility] [place] Date(s): 01/31/20 - 03/23/[address] [address]- [facility] Attending Physician: Luis Machuca MD Allergies, [...]
--- OUTSIDE RECORDS SUMMARY | 2023-10-25 08:06 | XMS_ITS | Continuity of Care Document ---
Author Name Unknown Organization [facility] Address [address] [facility] [place] [address]- Care Team Providers Care Online Merchandising Specialist Name Role Phone Efraín Perry NP Primary Care Physician [phone] Encounter [facility] [place] Date(s): 08/12/22 - 08/19/22 [facility] Urology [address] [place], [place] [address] Attending Physician: Efraín Junior MD Admitting Physician: Efraín Junior MD Referring Physician: Efraín Perry NP Allergies, Adverse Reactions, Alerts Substance Reaction Severity Status formaldehyde topical Active Augmentin Active Other Environmental Allergy 1 Active 1lotion Medications atorvastatin 20 mg oral tablet 1 tablet = 20 mg, By Mouth, Daily, # 90 tablet, 0 Refills, Maintenance, 08/12/22 15:08:00 EDT, Tablet, Partial fill upon patient request if the prescription is for a schedule II opioid drug. Start Date: 08/12/22 Status: Ordered Colace sodium 100 mg oral [...] day 3 Start Date: 11/19/15 Status: Ordered finasteride 5 mg oral tablet [...] opioid drug. Start Date: 08/12/22 Status: Ordered MiraLax oral powder for reconstitution See Instructions, 17 Gm By Mouth Daily dissolve in water or juice, # 527 Gm, 1 Refills, Maintenance, 11/19/15 10:29:52, 17 Gm By Mouth Daily; dissolve in water or juice Start Date: 11/19/15 Status: Ordered naproxen 500 mg (as sodium) [...] opioid drug. Start Date: 08/12/22 Status: Ordered Vitamin D3 1000 intl units oral capsule 1 capsule = 25 mcg, By Mouth, Daily, # 75 capsule, 0 Refills, Maintenance, 08/12/22 15:09:00 EDT, Capsule, Partial fill upon patient request if the prescription is for a schedule II opioid drug. Start Date: 08/12/22 Status: Ordered Problem List Condition Confirmation Course Effective Dates Status Health St atus Informant Disease of prostate Confirmed Active Dyspnea Confirmed Active Obese class I Confirmed Active Tobacco abuse Confirmed Active Vital Signs Most recent to oldest [Reference Range]: 1 Height 175 cm (08/12/22 3:05 PM) Weight 94.0 kg (08/12/22 3:05 PM) Oxygen Saturation [94-100 %] 97 % (08/12/22 3:05 PM) Pulse Rate [55-90 bpm] 60 bpm (08/12/22 3:05 PM) Body Mass Index [18.5-24.99 kg/m2] 30.69 kg/m2 *>HHI* (08/12/22 3:05 PM) Mode of Delivery (Oxygen) Room air (08/12/22 3:05 PM) Weight Obtained Via Standing scale (08/12/22 3:05 PM) Social History Social History Type Response Smoking Status Current every day sm oker; Other: patient stated he smokes half a pack a day of the mildest cigarettes they sell ; entered on: 09/03/15 Sex Note * Event Display: Bladder Scan Authored Date: [id number] * Preethi Esposito: PERFORM, SIGN, VERIFY Event Display: Patient Education/Instruction Authored Date: [id number] [facility] *[facility] Clinical Summary Name SAHIL BLAIR Age 72 Years 1950 PCP Vicky GASPAR , Efraín Rendon PCP Visit Date 08/12/2022 12:59:00 Additional Instructions: Scheduled Appointments?? Future Appointments ?No Future Appointments Scheduled Follow-Up Instructions ?? With: Address: When: Efraín Junior Within 3 months Diagnosis Medications: Please continue your medications until treatment is completed or stopped by your provider. Discuss any questions related to medications with your provider. Medications to Continue with No Changes These medications were not printed or sent to your pharmacy Atorvastatin (atorvastatin 20 mg oral tablet) 1 tab(s) Oral Daily. Next Dose: Bisacodyl (Dulcolax 10 mg rectal suppository) 1 supp Rectally if no BM by day 3. Refills: 1. Next Dose: Cholecalciferol (Vitamin D3 1000 intl units oral capsule) 1 capsule Oral Daily. Next Dose: Docusate (Colace sodium 100 mg oral capsule) 2 capsule Oral Daily for 30 Days. Refills: 11. Next Dose: Finasteride (finasteride 5 mg oral tablet) 1 tab(s) Oral Daily. Next Dose: Gabapentin (gabapentin 300 mg oral capsule) 1 capsule Oral 3 times a day. Next Dose: Naproxen (naproxen 500 mg (as sodium) oral tablet, extended release) 2 tab(s) Oral Daily as needed as needed for pain. Next Dose: Polyethylene Glycol 3350 (MiraLax oral powder for reconstitution) 17 Gm By Mouth Daily dissolve in water or juice. Refills: 1. Next Dose: Tamsulosin (tamsulosin 0.4 mg oral capsule) 1 capsule Oral Daily. Next Dose: Allergy Info:?? Other Environmental Allergy; Augmentin; formaldehyde topical Medications Given This Visit Future Orders ?No future orders Vital Signs Height 175 cm Weight 94.0 kg BMI 30.69 kg/m2 Blood Pressure / Temperature Pulse Rate 60 bpm Respiratory Rate 02 Sat Mode of Delivery 97 %/Room air You can now view a summary of your hospital visit from the comfort of your home through a free online portal called [employer]iv. [employer] is a website that allows you to securely view your medical information including discharge summary, medications and follow-up visits. ??You can alsosend a secure electronic message to your doctor???s office to request appointments, renew medications or just ask a question. You can enroll at [email or web address] or register during your next office visit. Disclaimer:?? The information provided is of a general nature and is intended to be used in conjunction with the recommendations and advice of your health care practitioner. ??Every effort has been made to ensure that the information provided is accurate and complete at the time it is provided to you however, as your needs change, or, as new ??information becomes available, different or additional instructions may be required. If you have questions, please consult with your primary care provider or pharmacist, as appropriate. ??This information is not intended to serve as substitution for assessment and evaluation by a qualified health care provider. If you do not have a primary care provider, you may find a [facility] provider by calling [facility] TimePad Link at [phone]. For information about the plan of care including goals and instructions for your diagnosis, please see the patient education orders section of this document. Patient Education Materials?? The content of this educational material or handout may have been modified, supplemented, or adapted from its original content and format to support your individualized medical care. * Event Display: Non BH Lab Results Authored Date: * Event Display: Non BH Lab Results Authored Date: * Event Display: Non BH Lab Results Authored Date: * Event Display: CT Scan Abdomen, Non- BH Authored Date: * Event Display: CT Scan Abdomen, Non- BH Authored Date: Patient Care team information Care Team Personnel Name: Efraín Perry NP Position: Reference Physician Member Role: PCP Address: Address: [address] [place] [address] Name: Lisbet Slater RN Position: [facility] RN Member Role: Primary Care Nurse Care Team Related Persons Name: JERICA BLACKWELL Name: STATES, NONE
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
--- OUTSIDE RECORDS SUMMARY | 2023-10-25 08:06 | XMS_ITS | Continuity of Care Document ---
Author Name Unknown Organization [facility] Address [address] [facility] [place] [address]- Care Team Providers Care Verification Rep Name Role Phone Vicky GASPAR, Efraín Rendon Primary Care Physician Encounter [facility] [place] Date(s): 08/10/22 - 09/09/22 [facility] Urology [address] [place] [address]- Allergies, Adverse Reactions, Alerts Substance Reaction Severity [...] I Confirmed Active Tobacco abuse Confirmed Active Social History Social History Type Response Smoking Status Current every day sm oker; Other: patient stated he smokes half a pack a day of the mildest cigarettes they sell ; entered on: 09/03/15 Sex Patient Care team information Care Team Personnel Name: Efraín Perry NP Position: Reference Physician Member Role: PCP Address: Address: [address] [place] [address] Name: Lisbet Slater RN Position: [facility] RN Member Role: Primary Care Nurse Care Team Related Persons Name: JERICA BLACKWELL Name: STATES, NONE
--- OUTSIDE RECORDS SUMMARY | 2023-10-25 08:06 | XMS_ITS | Patient Health Record ---
Author Name Unknown [facility] Address [address] [facility] [place] [address] Care Team Providers Care Compressor Station Engineer Chief Name Role Phone Efraín Lazaro Primary Care Provider Unav ailable Woo Carmona Unavailable [phone] ALLERGIES Allergen (clinical drug ingredient) Drug/Non Drug Allergy documented on EMR Reaction Allergy Type Onset Date Status Formaldehyde rash Drug Allergy Acti ve REASON FOR REFERRAL No Information MEDICATIONS Medication SIG (Take, Route, Frequency, Duration) Notes Start Date End Date Status Tamsulosin HCl 0.4 MG Orally Once a day Active Nystop Active Betamethasone Dipropionate Active Finasteride 5 MG Orally Once a day Active Nystatin Active Atorvastatin Calcium Active amLODIPine Benzoate Active Gabapentin Active IMMUNIZATIONS Vaccine Route Administration Date Status Comme nts Influenza Unknown 08/08/2021 Refused COVID-19 Pfizer BioNTech Vaccine Unknown 10/02/2021 Administered 1st 01/17/2021 2nd 01/31/2021 SOCIAL HISTORY Tobacco Use: Social History Observation Description Date Details (start date - stop date) Current Smoker NA - NA Sex Assigned At : Social History Observation Description Sex Assigned At Unknown Tobacco Use/Smoking Question Answer Notes Are you a: current smoker How many cigarettes a day do you smoke? 6-10 Alcohol Screen Question Answer Notes Did you have a drink containing alcohol in the p ast year? Yes Points 0 Interpretation Negative Tobacco use other than smoking: Question Answer Notes Are you an other tobacco user? No PROBLEMS Problem Type ICD Code Onset Dates Problem Status W/U Status Risk SNOMED Code Notes Problem Tinea unguium (B35.1) Active confirmed Tinea unguium (476340532) VITAL SIGNS Blood pressure diastolic 80 mm Hg 08/27/2023 Height 5 ft 9 in in 08/27/2023 Blood pressure systolic 120 mm Hg 08/27/2023 Weight 220 lbs 08/27/2023 BMI 32.48 kg/m2 08/27/2023 PROCEDURES Procedure Date Ordered Date Performed Result Body Sit e 74543-KMYCRUM NAIL, 6 OR MORE 12/25/2022 N/A 43125-JUEUCUB NAIL, 6 OR MORE 03/16/2023 N/A 77036-FCKWSXL NAIL, 6 OR MORE 05/28/2023 N/A 25198-RQBWLVE NAIL, 6 OR MORE 08/27/2023 N/A Encounters Encounter Location Date Provider Diagnosis [address] [address] 12/25/2022 Woo Kristine Tinea unguium B35.1 ; Pain in right toe(s) M79.674 and Pain in left toe(s) M79.[address] [address] 03/16/2023 Woo Kristine Tinea unguium B35.1 ; Pain in right toe(s) M79.674 and Pain in left toe(s) M79.[address] [address] 05/28/2023 Woo Kristine Tinea unguium B35.1 ; Pain in right toe(s) M79.674 ; Pain in left toe(s) M79.675 and 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 [address] 08/27/2023 Woo Kristine Tinea unguium B35.1 ; Pain in right toe(s) M79.674 and Pain in left toe(s) M79.[address] [address] 10/12/2023 Woo Kristine ASSESSMENTS Encounter Date Diagnosis Assessment Notes Treatment Notes Treatment Clinical Notes 12/25/2022 Tinea unguium (ICD-10 - B35.1) 03/16/2023 Tinea unguium (ICD-10 - B35.1) 08/27/2023 Tinea unguium (ICD-10 - B35.1) 08/27/2023 Pain in right toe(s) (ICD-10 - M79.674) 05/28/2023 Tinea unguium (ICD-10 - B35.1) 05/28/2023 Pain in right toe(s) (ICD-10 - M79.674) 05/28/2023 Pain in left toe(s) (ICD-10 - M79.675) 08/27/2023 Pain in left toe(s) (ICD-10 - M79.675) 03/16/2023 Pain in right toe(s) (ICD-10 - M79.674) 12/25/2022 Pain in right toe(s) (ICD-10 - M79.674) 12/25/2022 Pain in left toe(s) (ICD-10 - M79.675) 03/16/2023 Pain in left toe(s) (ICD-10 - M79.675) 05/28/2023 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) PLAN OF TREATMENT Pending Test Test Name Order Date 73860-UQXVGAP NAIL, 6 OR MORE 07/06/2013 38820-KMTURLN NAIL, 6 OR MORE 09/29/2013 97647-MSTGAHV NAIL, 6 OR MORE 07/31/2014 04242-FJOGRMA NAIL, 6 OR MORE 11/02/2014 16505-VIRTYRM NAIL, 6 OR MORE 07/02/2017 01067-PYQNYBJ NAIL, 6 OR MORE 07/08/2018 70605-OEMBCAK NAIL, 6 OR MORE 07/18/2019 93722-WWQTPAG NAIL, 6 OR MORE 09/19/2019 95231-WQDJZEC NAIL, 6 OR MORE 08/09/2020 50907-XSIBDJO NAIL, 6 OR MORE 10/29/2020 77495-MULPUAV NAIL, 6 OR MORE 01/06/2022 39400-RZJEUHD NAIL, 6 OR MORE 12/25/2022 17680-GWJPCRV NAIL, 6 OR MORE 03/16/2023 89097-IFMMAIN NAIL, 6 OR MORE 08/27/2023 79154-ALWDVZL NAIL, 6 OR MORE 10/16/2022 51012-OLDTSJD NAIL, 6 OR MORE 03/05/2020 86570-YYLRHSM NAIL, 6 OR MORE 12/12/2019 60901-RVIOYGJ NAIL, 6 OR MORE 01/13/2019 06424-FIBWCVW NAIL, 6 OR MORE 10/21/2018 26792-KGHRCZP NAIL, 6 OR MORE 04/12/2018 75363-XCJAELN NAIL, 6 OR MORE 01/25/2018 70036-JTQZZWU NAIL, 6 OR MORE 11/02/2017 33501-KTICSSS NAIL, 6 OR MORE 03/05/2017 66380-ACVJXDZ NAIL, 6 OR MORE 05/29/2016 76761-XMSIWJR NAIL, 6 OR MORE 02/25/2016 05500-CEOHHTH NAIL, 6 OR MORE 11/22/2015 37181-TMIGZTE NAIL, 6 OR MORE 02/08/2015 58673-VFQOGWB NAIL, 6 OR MORE 04/24/2014 37108-YEQFQMP NAIL, 6 OR MORE 01/16/2014 53012-HKFHVIY NAIL, 6 OR MORE 05/28/2023 18747-YSICJRH NAIL, 6 OR MORE 07/28/2022 69487-LNGIIHS NAIL, 6 OR MORE 05/15/2022 79340-YBBOUUP NAIL, 6 OR MORE 08/08/2021 84844-LPMUDRA NAIL, 6 OR MORE 05/09/2021 53126-WWIYTQI NAIL, 6 OR MORE 04/28/2019 42967-MPAGEUH NAIL, 6 OR MORE 07/27/2011 24415-JTWTTTH NAIL, 6 OR MORE 05/14/2015 28855-RZTPQEO NAIL, 6 OR MORE 10/28/2021 66767-BJTZQJG NAIL, 6 OR MORE 02/18/2021 99113-WURUMUH NAIL, 6 OR MORE 05/21/2020 78674-AKUYQHM NAIL, 6 OR MORE 11/20/2016 28735-UOMULSL NAIL, 6 OR MORE 08/28/2016 43449-TUJIBZG NAIL, 6 OR MORE 08/20/2015 72255-BEQJYAK NAIL, 1-5 07/03/2013 47327-QXNIVYF NAIL, 1-5 04/24/2013 19477-Tywfpkkr Plate 04/20/2012 04405-Uofguvhy Plate 01/20/2012 48933-Opgtpgzh Plate 10/14/2011 52426-Ongbcmib Plate 10/24/2012 13918-Xacgfpni Plate 07/25/2012 50361-Wylbqzcy Plate 01/23/2013 21998-Omrsykxm Plate 07/27/2011 84440- Removal of Foreign Body, Subcut 0 05/21/2020 Next Appt Details Provider Name:Woo Carmona , 12/07/2023 10:00:00 AM, [address] [place], [address], Insurance Providers Payer Name Payer Address Payer Phone Subscriber Number Group Number Insured Name Patient Relationship to Insured Coverage Start Date Coverage End Date Medicare [facility] [address] [place] [address] [id number] Ponce Fitzpatrick Self - patient is the insured 8 [employer] Secondary to Medicare [address] [place] [address] [id number] Ponce Fitzpatrick Self - patient is the insured MEDICAL (GENERAL) HISTORY Medical History History ICD Code measles Arthritis Prostate conditions Surgical History Surgery Date(Month/Year) appendectomy amputation, left thumb and index finger Left Hip Replacement 08/28/15 Heart Valve replacement Surgery 03/01/23 Hospitalization History Reason Date(Month/Year) Splinter removal 03/2018 Hip replacement - [facility] 2015 [facility]- infection of the bladder 06/2013
--- OUTSIDE RECORDS SUMMARY | 2023-10-25 08:06 | XMS_ITS | Continuity of Care Document ---
Author Name Unknown Organization [facility] ter Address [address] [place] [address]- Care Team Providers Care Can Runner Name Role Phone Vicky GASPAR, Efraín Rendon Primary Care Physician Encounter [facility] [place] Date(s): 05/03/23 - 06/18/[address] [address]- Encounter Diagnosis Nonrheumatic aortic valve disorder, unspecified(Final) - Discharge Disposition: A-D/C Home Attending Physician: Tan Coronado MD Admitting Physician: Tan Coronado MD Referring Physician: Tan Coronado MD Allergies, Adverse Reactions, Alerts Substance Reaction [...] 04/05/23 9:30:00 EDT, Route to Pharmacy Electronically, [facility]/pharmacy #[id number], Partial fill upon patient request if [...] last 30 days entered on: 01/20/23 Sex Note * Event Display: Cardiac Rehab Telemetry Report Authored Date: * Event Display: Cardiac Rehab Telemetry Report Authored Date: * Event Display: Cardiac Rehab Telemetry Report Authored Date: Patient Care team information Care Team Personnel Name: Efraín Perry NP Position: Reference Physician Member Role: PCP Address: Address: [address] [place] [address] Name: Lisbet Slater RN Position: S RN Member Role: Primary Care Nurse Care Team Related Persons Name: JERICA SANABRIA Name: JERICA BLACKWELL Name: STATES, NONE
--- OUTSIDE RECORDS SUMMARY | 2023-10-25 08:06 | XMS_ITS | Continuity of Care Document ---
Author Name Unknown Organization [facility] ter Address [address] [place] [address]- Care Team Providers Care Epic Willow Specialist Name Role Phone Luis Machuca MD Primary Care Physician Encounter [facility] [place] Date(s): 11/07/19 - 02/06/[address] [address] [facility] Attending Physician: Luis Machuca MD Allergies, Adverse [...]
--- OUTSIDE RECORDS SUMMARY | 2023-10-25 08:06 | XMS_ITS | Continuity of Care Document ---
Author Name Unknown Organization [facility] Address [address] [place] [address]- Care Team Providers Care Safety Admin Assistant Name Role Phone Vicky GASPAR, Efraín Rendon Primary Care Physician Encounter [facility] [place] Date(s): 09/23/23 - 10/23/23 [facility] [address] [place] [address]- [place] Allergies, Adverse Reactions, Alerts Substance Reaction Severity [...] Reference Physician Member Role: PCP Address: Address: [address] [place] [id number] [place] Name: Lisbet Slater RN Position: Geraldo JURADO RN Member Role: Primary Care Nurse Care Team Related Persons Name: JERICA SANABRIA Name: JERICA BLACKWELL Name: STATES, NONE
--- OUTSIDE RECORDS SUMMARY | 2023-10-25 08:06 | XMS_ITS | Continuity of Care Document ---
Author Name Unknown Organization [facility] Address [address] [facility] [place] [address]- Care Team Providers Care Compressor Operator Portable Name Role Phone Vicky GASPAR, Efraín Rendon Primary Care Physician Encounter [facility] [place] Date(s): 11/18/22 - 12/18/22 [facility] [address] [facility] [place] [address]- Attending Physician: Gabriele Woodward Admitting Physician: Admtr, Gabriele Referring Physician: Admtr, [id number] Allergies, Adverse Reactions, [...] Reference Physician Member Role: PCP Address: Address: [address] [place] [address] Name: Lisbet Slater RN Position: Geraldo RN Member Role: Primary Care Nurse Care Team Related Persons Name: JERICA SANABRIA Name: JERICA BLACKWELL Name: STATES, NONE
--- OUTSIDE RECORDS SUMMARY | 2023-10-25 08:06 | XMS_ITS | Continuity of Care Document ---
Author Name Unknown Organization [facility] ter Address [address] [place] [address]- Care Team Providers Care Watch And Clock Maker And Repairer Name Role Phone Brigette CARPENTER, Luis Sanchez Primary Care Physician Encounter [facility] [place] AC[facility] R [id number] Date(s): 05/22/20 - 05/23/[address] [address]- [facility] Attending Physician: Luis Machuca [...]
--- OUTSIDE RECORDS SUMMARY | 2023-10-25 08:06 | XMS_ITS | Continuity of Care Document ---
Author Name Unknown Organization [facility] Address [address] [place] [address]- Care Team Providers Care Collar Folder Operator Name Role Phone Vicky GASPAR, Efraín Rendon Primary Care Physician [phone] Encounter [facility] [place] Date(s): 01/20/23 - 02/19/23 [facility] [address] [place] [address]- Attending Physician: Gabriele Woodward Admitting Physician: Gabriele Woodward Referring Physician: trGabriele Allergies, Adverse Reactions, Alerts Substance Reaction Severity Status formaldehyde topical Active Augmentin Active Other Environmental Allergy 1 Active 1lotion Medications aspirin 81 mg oral delayed release tablet [...] Hyperlipidemia Confirmed Active HTN (hypertension) Confirmed Active Smoking Confirmed Active Tobacco abuse Confirmed Active Social History Social History Type Response Smoking Status 10 or more cigarette s (1/2 pack or more)/day in last 30 days entered on: 01/20/23 Sex Patient Care team information Care Team Personnel Name: Efraín Perry NP Position: Reference Physician Member Role: PCP Address: Address: [address] [place] [address]- Name: Lisbet Slater RN Position: [facility] RN Member Role: Primary Care Nurse Care Team Related Persons Name: JERICA SANABRIA Name: JERICA BLACKWELL Name: STATES, NONE
--- OUTSIDE RECORDS SUMMARY | 2023-10-25 08:06 | XMS_ITS | Continuity of Care Document ---
Author Name Unknown Organization [facility] ter Address [address] [place] [address]- Care Team Providers Care Leadership Development Instructor Name Role Phone Vicky GASPAR, Efraín Rendon Primary Care Physician [phone] [place] [facility] [place](s[place] 09/11/22 - 11/17/[address] [address] Attending Physician: Hal Coleman MD Admitting Physician: Hal Coleman MD Referring Physician: Froylan Galvan MD Allergies, [...] Reference Physician Member Role: PCP Address: Address: [address] [place] [id number] Name: Lisbet Slater RN Position: Geraldo RN Member Role: Primary Care Nurse Care Team Related Persons Name: JERICA BLACKWELL Name: STATES, NONE
--- OUTSIDE RECORDS SUMMARY | 2023-10-25 08:06 | XMS_ITS | Continuity of Care Document ---
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 Name Role Phone Vicky GASPAR, Efraín Rendon Primary Care Physician [phone] Encounter [facility] Date(s): 11/17/22 - 11/17/[address] [address] Discharge Disposition: A-D/C Home Attending Physician: Hal Coleman MD Admitting Physician: [...] Most recent to oldest [Reference Range]: 1 2 3 Height 176 cm (11/17/22 8:39 AM) 176 cm (11/17/22 8:37 AM) Weight 94.4 kg (11/17/22 8:39 AM) 94.4 kg (11/17/22 8:37 AM) Oxygen Saturation [94-100 %] 95 % (11/17/22 1:45 PM) 95 % (11/17/22 1:15 PM) 94 % (11/17/22 12:45 PM) Body Mass Index [18.5-24.99 kg/m2] 30.48 kg/m2 *>HHI* (11/17/22 8:39 AM) Blood Pressure [90-138/55-84 mm Hg] 136/61mm Hg (11/17/22 1:15 PM) 131/59mm Hg (11/17/22 12:45 PM) 129/56mm Hg (11/17/22 12:30 PM) Respiratory Rate [16-30 br/min] 16 br/min (11/17/22 1:45 PM) 16 br/min (11/17/22 1:15 PM) 15 br/min *L* (11/17/22 1:00 PM) Temperature [96.8-100.4 DegF] 97.3 DegF (11/17/22 8:39 AM) Mode of Delivery (Oxygen) Room air (11/17/22 1:45 PM) Room air (11/17/22 1:15 PM) Room air (11/17/22 8:39 AM) Blood pressure sites Arm, left (11/17/22 8:00 AM) Arm, right (11/17/22 7:45 AM) Temperature Route Temporal (11/17/22 8:39 AM) Dry Weight 94.4 kg (11/17/22 8:37 AM) Weight Obtained Via Standing scale (11/17/22 8:39 AM) Standing scale (11/17/22 8:37 AM) Dry Weight Obtained Via Standing scale (11/17/22 8:37 AM) Social History Social History Type Response Smoking Status Current every day sm oker; Other: patient stated he smokes half a pack a day of the mildest cigarettes they sell ; entered on: 09/03/15 Sex Cardiac catheterization study * Event Display: Cardiac Well Shooter Report Authored Date: Cardiac Diagnostic Report Demographics Patient Name ROSSY BAXTER Gender Male [employer] Room Number B211 Height 68.9 inches Date of 1950 Weight 208.12 pounds Age 72 year(s) BSA 2.1 m2 Accession Number [id number] BMI 30.82 kg/m2 Referring Physician Froylan Date of Study 11/17/2022 Cloe CARPENTER Performing Physician Hal Coleman MD Fellow Bravo Vargas Interventional Physician Procedure Procedure Type Diagnostic procedure:Coronary Angiography ACC Diagnostic Catheterization Status:Elective Indications Indications: Aortic stenosis and Dyspnea with exertion. Clinical History Admission Medications + +------+--------+ + + +---------+ !Medication !Dosage!Times !Last !Last !Administered !Comments ! ! ! !Per Day !Delivery !Delivery ! ! ! ! ! ! !Date !Time ! ! ! + +------+--------+ + + +---------+ !Statin (any)! ! ! ! ! ! ! + +------+--------+ + + +---------+ Clinical Evaluation Leading to Procedure - There were no CAD presentation symptoms. - There were no anginal symptoms. - The patient was diagnosed with a heart failure condition. Heart failure type: Diastolic. - The patient's heart failure status was assessed as NYHA Class II, with CHF symptoms of PETER ACC Risk Factors The patient risk factors include:treated hypercholesterolemia, treated hypertension, chronic lung disease, last creatinine: 1.1 mg/dl, creatinine clearance: 82.24 ml/min, dyslipidemia and Current - Every day tobacco use. Additional Clinical History:72 year old with a history of severe aortic stenosis, COPD, tobacco dependence who presents for coronary angiography as part of TAVR work up. Procedure Data Procedure Date Date: 11/17/2022Start: 11:02End: 11:25 The procedure was explained in detail to the patient. Risks, complications and alternative treatments were reviewed. Written consent was obtained. Entry Locations - Retrograde Percutaneous access was performed through the Right Radial artery (Primary location). A 6 Fr sheath was inserted. Hemostasis was successfully obtained using Prelude Sync EZ. Procedure Medications - Versed (Midazolam) I.V. 1 mg. - Fentanyl I.V. 50 mcg. - Lidocaine 2% S.C. Right Wrist 2 ml. - Nitroglycerin I.A. 200 mcg. - 0.9NS I.V. bolus 250 ml. Sedation: My intra-service moderate sedation time was: from 1112 to 1120. Refer to procedural log for detailed chronological information. Contrast Material - Omnipaque 35 ml Diagnostic Catheters - A5F JR4 INFINITI CATHETERwas used for: Right coronary angiography. - ADIAGNOSTIC CATH 5F JL3.5 100cm PERFORMAwas used for: Left coronary angiography. Fluoroscopy Time: Diagnostic: 1:36 minutes. Total: 1:36 minutes. Fluoroscopy Dose: Diagnostic: 561 mGy. Total: 561 mGy. Dose Area Product:Diagnostic: 70223 mGy/cm2. Total: 79310 mGy/cm2. Dose Area Product:Diagnostic: 2880 ??Gy/m2. Total: 2880 ??Gy/m2. Procedure Narrative We accessed the right radial artery using a 6 Fijian slender sheath. We did not cross into LV given severe aortic stenosis. Diagnostic angiography with a 5 Fijian JR4 and JL 3.5 Hemostasis with a regular TR band. Angiographic Findings Cardiac Arteries and Lesion Findings LMCA: Normal. LAD: Mild luminal irregularities (<30%). LCx: Lesion in Mid CX: 70% stenosis 20 mm length. RCA: Mid RCA 60-70% stenosis. Hemodynamics Condition: Rest O2 Consumption: Estimated: 233.23Heart Rate: 58 bpm Pressures (mmHg) +-----+ + !Site !Pressure ! +-----+ + !AO !144/50 (81)! +-----+ + Shunts Oxygen Values O2 Consumption 233.23 Interventional Procedure Conclusions Diagnostic Summary 72-year-old gentleman with severe aortic valve stenosis and dyspnea on exertion here for diagnostic angiography before transcatheter aortic valve placement. Hemodynamics: Normal systemic pressures. We did not cross into LV given known history of severe aortic valve stenosis. Coronary anatomy: 60-70% mid RCA stenosis. 70% mid left circumflex stenosis. Patient is here for diagnostic angiography before transcatheter aortic valve placement. He has moderate disease in the right coronary artery and severe left circumflex stenosis. We will refer him to heart team for further assessment. Diagnostic Recommendations Aggressive secondary risk factor modification according to ATP III guidelines. Continue aspirin 81 mg/day indefinitely. Heart team assessment for transcatheter aortic valve replacement. ACC Diagnostic Recommendations: Other cardiac therapy without CABG or PCI. Complications:None. Signatures * Event Display: Cardiac Well Shooter Report Authored Date: History and physical note * Event Display: History and Physical Hospital Authored Date: EKG study * Event Display: ECG 12-Lead Authored Date: Please click on pdf link to open report * Event Display: ECG 12-Lead Authored Date: Ventricular Rate: 64 BPM Atrial Rate: 64 BPM P-R Interval: 182 ms QRS Duration: 92 ms Q-T Interval: 388 ms QTC Calculation(Bazett): 400 ms P Quogue: 19 degrees R Quogue: 7 degrees T Quogue: 42 degrees Normal sinus rhythm Nonspecific T wave abnormality Abnormal ECG When compared with ECG of 02-SEP-2015 21:10, Nonspecific T wave abnormality now evident in Lateral leads Confirmed by TARUN BOWMAN ([id number]) on 11/17/2022 8:50:24 PM [place]: TARUN BOWMAN Note * Jennifer Adamson: PERFORM Event Display: Discharge/Transfer Note Hospital Authored Date: Nursing Discharge Note Entered On: 11/17/2022 14:55 EST Performed On: 11/17/2022 13:43 EST by Jennifer Adamson Nursing Discharge Note 2 Discharge Time : 11/17/2022 13:43 EST Discharge Level of Care at Discharge : Home/[facility]oster Care Patient Left Unit Via : Wheelchair Patient Accompanied Off Unit with : Responsible adult DC Instructions Provided & Signed by Pt : Yes Patient Understands D/C Instructions : Yes Verbalized Understanding of D/C Plan By : Patient Patient Instructions Discharge Signed : Yes Did Pt have Specialty Bed or Wound Vac : No Jennifer Adamson - 11/17/2022 14:54 EST * Juan Diego Jennifer: PERFORM Event Display: Patient Education/Instruction Authored Date: [id number] Inpatient Adult Discharge Instructions [address] [address] Name: SAHIL BLAIR : 1950 Visit: 11/17/2022 07:17:00 Current Date: 11/17/2022 12:29 Account: [id number] Inpatient Adult Discharge Instructions We would like to thank you for allowing us to assist you with your healthcare needs. The following includes patient education materials and information regarding your injury/illness. Our entire staffstrives to provide an excellent experience for our patients and their families. PLEASE ENSURE YOU FOLLOW-UP PER THE INSTRUCTIONS BELOW! ?? YOUR OPINION IS IMPORTANT TO US! Please complete the survey you may receive by mail or email. Your feedback will be used to make improvements to the healthcare experiences of our patients and their families. Surveys are administered by [employer] ?? If further treatment with your primary care physician or another doctor is recommended, it is important for you to keep the appointment. Call your primary care physician or return to the Emergency Department immediately if your condition worsens, fails to improve, or new symptoms develop. If you need to find a doctor, you can call [facility] [employer] for a referral at [phone] or toll free at [phone] or log in to [email or web address].. ?? You can view and manage your care through the patient portal or by using a health care lucina of your choosing. [employer] is a website that allows you to securely view your medical information including your hospital discharge summary, office visit summaries, medications and follow-up visits. You can also request appointments, renew medications, and request access to your medical information using a health care lucina of your choosing, or just ask a question. You can enroll at [email or web address] or register during your next office visit. You have been discharged from [facility], Patient Care Unit: CARE. If you have any questions regarding these instructions after you leave, please call us and we will be happy to assist you. [facility] Your Care Team Attending Physician aJred CARPENTER, Hal Discharging Providers Alicia CARPENTER, Bravo Kenny Reason for Admission [facility] 7:30AM ARR HV2 Tests Performed Below is a partial list of the tests performed during your hospitalization. You may have had other tests and procedures not included in this list. Please discuss all test results with your provider. Type and Screen Primary Care Provider Vicky GASPAR , Efraín Rendon Advance Directive Health Care Proxy on File Yes - MOLST Discharge Vitals Temperature: 97.3 DegF Height: 176 cm Respiratory Rate: 19 br/min Weight: 94.4 kg Systolic Blood Pressure: 121 mm Hg Body Mass Index:??30.48 kg/m2??Critical Diastolic Blood Pressure: 58 mm Hg Body surface area: 2.15 Oxygen Saturation: 95 % ?? Studies Pending All tests and labs ordered during this hospital stay have been completed unless listed below. Please discuss all pending results with your provider listed above in these instructions. ?? No incomplete studies found What to do next Instructions From Your Doctor Discharge Orders Instructions from your Care Team You have no medications changes today. Continue all medications as previously prescribed. Scheduled Follow-Up Appointments Wednesday 1:30 PM EST ?? With: Efraín Junior MD Where: [facility] [address] [place] [address]- You Need to Schedule the Following Appointments Follow Up with??Froylan Galvan MD When??Within 2 to 3 weeks Where: ?? Discharge Medications SAHIL BLAIR :1950 Visit Date:11/17/2022 Medications: Please continue your medications until treatment is completed or stopped by your provider. Medications not listed below should be discontinued. Discuss any questions related to medications with your provider. What How Much When Instructions Next Dose Unchanged Atorvastatin (atorvastatin 20 mg oral tablet) 1 tab(s) Oral Daily Unchanged Cholecalciferol (Vitamin D3 1000 intl units oral capsule) 1 capsule Oral Daily Unchanged Finasteride (finasteride 5 mg oral tablet) 1 tab(s) Oral Daily Unchanged Gabapentin (gabapentin 300 mg oral capsule) 1 capsule Oral 3 times a day Unchanged Losartan (losartan 100 mg oral tablet) 1 tab(s) Oral Daily Unchanged Naproxen (naproxen 500 mg (as sodium) oral tablet, extended release) 2 tab(s) Oral Daily as needed for as needed for pain Unchanged Tamsulosin (tamsulosin 0.4 mg oral capsule) 1 capsule Oral Daily Test Results Below is a partial list of the most recent Laboratory test results done prior to this discharge. You may have had other tests and procedures not included in this list. Please discuss all test resultswith your provider. Type and Screen (11/17/2022) ???Blood Type - B Positive???Antibody Screen - Negative Allergies (NKA means No Known Allergies) Augmentin Other Environmental Allergy formaldehyde topical Problems Active Problems??(4) Disease of prostate?? Dyspnea?? Obese class I?? Tobacco abuse?? Education Materials Below is the list of Educational Leaflet Providered with your Discharge Instructions. Surgery Radial Cath Approach Discharge Instructions?? Recovery After Procedural Sedation (Adult)?? Discharge Instructions for Cardiac Catheterization?? Bleeding or Hematoma After Cardiac Catheterization?? Valuables and Belongings I fully understand and agree that [facility] accepts no responsibility for all my personal property including clothing, toilet articles, radios, jewelry, dentures, hearing aids, rings, money, or any other property that is in my possession or is brought to me after admission. I understand certain valuables may be placed in a hospital safe for a short period of time. I understand that the hospital is not liable for loss or damage due to accident, fire, or other natural occurrence while said property is in the safe. I accept full responsibility for any personal property that I keep with me, and will not hold the hospital responsible in case of loss or disappearance. I acknowledge that i have been encouraged to send valuables and belongings home. ?? Review of Valuable and Belonging List: With patient Date for Pt to Sign Valuables/Belongings: 11/17/22 08:39:00 ?? Valuables & Belongings ?? Clothes Electronic devices Jewelry Monetary Items Personal devices Miscellaneous Medications (Valuables) Valuables at Bedside Jacket, Pants, Shirt, Shoes, Undergarments ? Wallet Glasses ? Valuables Sent Home ?? Cell phone ? Valuables Sent to Security ? Other Discharge Information ? Pulmonary Rehab Status?? Pulmonary Rehab Discharge Status?? Respiratory Rate: 19 br/min ? Common Emergency Awareness Tips IS IT A STROKE? Act FAST and Check for these signs: FACE Does the face look uneven? ARM Does one arm drift down? SPEECH Does their speech sound strange? TIME Call at any sign of stroke ?? Heart Attack Signs Chest discomfort: Most heart attacks involve discomfort in the center of the chest and lasts more than a few minutes, or goes away and comes back. It can feel like uncomfortable pressure, squeezing, fullness or pain. Discomfort in upper body: Symptoms can include pain or discomfort in one or both arms, back, neck, jaw or stomach. Shortness of breath: With or without discomfort. Other signs: Breaking out in a cold sweat, nausea, or lightheaded. Remember, MINUTES DO MATTER. If you experience any of these heart attack warning signs, call to get immediate medical attention! ?? Smoking can increase your chances of developing chronic health problems and can cause harmful effects to other family members in your house. If you smoke, you are strongly encouraged to quit. Please call [facility] [employer] [facility] at [phone] or [phone] [phone] ([phone]) or log in to [email or web address] for referrals to smoking cessation programs. ?? The National Suicide Prevention Hotline is available 03/05 if you or someone you know needs to find a reason to keep living. By calling 2-361-375-Sphere ([employer] (0489) you'll be connected to a skilled, trained counselor at a crisis center in your area. INPATIENT DISCHARGE INSTRUCTIONS SIGNATURE SAHIL ROMERO Location:[facility] Registration Date and Time:11/17/2022 07:17 EST Primary Care Physician: Vicky GASPAR , Efraín Rendon, I SAHIL BLAIR, have received the above patient education materials/instructions and have verbalized understanding. If ambulance or transport services are being used I further acknowledge being given a choice of service. ?? If you need to contact me, please call me at this number: . Patient/Animal Caretaker Name: Patient/Animal Caretaker Signature: Relationship to Patient: Witness Name/Signature: Date: * Jennifer Adamson: PERFORM Event Display: Patient Education Leaflets Authored Date: [id number] Surgery Radial Cath Approach Discharge Instructions ?? 278 Radial Cath Approach Discharge Instructions ?? Activity Take it easy the rest of the day. Limit your activity on the affected side.?? Act as if your arm is broken for 24 hours. No lifting with affected arm for 24 hours. No pushing or pulling with the affected arm. Do not reach or lift with the affected arm. Do not place excessive pressure on the wrist. ?? Precautions Due to intravenous sedation: It is recommended that someone stay with you for the first night after your procedure. Do not drive or operate hazardous machinery for 24 hours. Do not make legal decisions for 24 hours. Avoid alcohol for 24 hours. Unless directed otherwise, keep yourself hydrated. ?? Dressing/Incision Care You may remove the dressing 24 hours after your procedure. Replace with band aid for an additional 24 hours. You may shower and cleanse the site with soap &&water then pat dry. Avoid submersion of site in water x 5 days. Cover the with a clean band aid daily until site is healed. If the band aid becomes soiled, replacewith a clean new one. Do not apply any ointments, lotions, gels or powders to the puncture site. ?? When to contact your doctor If any of the following signs of infection occur: Fever greater than 100 degrees F Increased pain Drainage, redness or warmth at puncture site Tingling of the fingers and hand that last longer than 3 days Slight bubble of blood or bleeding from site: apply manual pressure and notify your doctor ?? Emergency situations: Bleeding from the site that will not stop: apply manual pressure and notify your doctor Profuse bleeding streaming from the puncture site: Apply manual pressure and notify your doctor immediately If your hand becomes bluish, cold to the touch, or painful, notify your doctor immediately or go toEmergency Department. For these emergent situations: If unable to contact your physician, call 911. ?? * Jennifer Adamson: PERFORM Event Display: Patient Education Leaflets Authored Date: [id number] Recovery After Procedural Sedation (Adult) ?? [id number] Recovery After Procedural Sedation (Adult) You have been given medicine by vein to make you sleep during your procedure. This may have included both a pain medicine and sleeping medicine. Most of the effects have worn off. But you may still have some drowsiness for the next 6 to 8 hours. Home care Follow these guidelines when you get home: ??? For the next 8 hours, you should be watched by a responsible adult. This person should make sure your condition is not getting worse. ??? Don't drink any alcohol??for the next 24 hours. ??? Don'tdrive, operate dangerous machinery, or make important business or personal decisions??during the next 24 hours. Note: Your healthcare provider may tell you not to take any medicine by mouth for pain or sleep in the next 4 hours. These medicines may react with the medicines you were given in the hospital. This could cause a much stronger response than usual. ?? Follow-up care Follow up with your healthcare provider as advised. Also follow up with your provider if you are not alert and back to your usual level of activity within 12 hours. ?? When to seek medical advice Have someone call your healthcare provider right away if any of these occur: ??? Drowsiness gets worse ??? Weakness or dizziness gets worse ??? Repeated vomiting ??? Severe or ongoing pain from the procedure that's not eased by the pain medicine (if prescribed) ??? Fever ??? New rash ?? Call 911 Have someone call 911 if you have any of these: ??? Shortness of breath ??? Chest pain ??? Loss of consciousness or you can't be awakened ?? Last Reviewed Date: 2021 ?? The [employer]. All rights reserved. This information is not intended as a substitute for professional medical care. Always follow your healthcare professional's instructions. ?? * Jennifer Adamson: PERFORM Event Display: Patient Education Leaflets Authored Date: [id number] Discharge Instructions for Cardiac Catheterization ?? [address] Discharge Instructions for Cardiac Catheterization Cardiac catheterization??is an invasive??procedure??to look for certain heart problems. These problems may affect the heart's chambers, valves, and blood vessels. A thin, flexible tube (catheter) is put in a blood vessel in your groin or arm. The catheter is moved to the heart. The healthcare provider can look at the blood flow, blood pressure, and oxygen. They can inject contrast fluid??into your blood. This flows to your heart.??The provider can then take X-rays pictures?? of your heart. Coronary angiography is often done as part of a cardiac cath. This looks for blocked areas in the arteries that send blood to the heart. If a blockage is found, your provider may try to open up the artery. They may put a stent in place. Your provider will talk with you about the results of your procedure . Ask any questions you have before you leave. This sheet will help you take care of yourselfat home. Home care ??? Have a responsible adult drive you home after your procedure. ??? Don't drive or makeany important decisions for at least 24 hours after getting any type of sedation or anesthesia.? Drink?? 6 to 8??glasses of water over the next 24 hours. This is to help flush the contrast dye out of your body. Call your healthcare team if your urine has any change in color. ??? Take your tempe rature each day for 3 to 5 days. If you feel cold and clammy or start sweating, take your temperature right away. Call your healthcare team. ??? Do only light and easy activities for??the next?? 2 to3??days. Ask for help with chores and errands while you recover. Have someone drive you to your appointments. ??? Don't lift anything heavy??until your healthcare team says it's safe. ??? Ask your healthcare team when you can expect to return to work. Unless your job involves lifting, you may be able to return to your normal activities within 2 days. ??? Take your medicines as directed. Don't skip doses. ??? Check your incisions every day for signs of infection. These include redness, swelling,and fluid leaking. It's normal to have a small bruise or bump where the catheter was put in. A bruise that's getting larger is not normal. Tell your healthcare team about this. Call your healthcare team if you see blood forming in the incision. Go to the emergency room if you have uncontrolled bleeding from the artery site. This is even more important if you take medicines that make it hard for your blood to clot. These include aspirin, clopidogrel, warfarin, apixaban, and rivaroxaban. ??? Eat a healthy diet. Make sure it's low in fat, salt, and cholesterol. Ask your healthcare team for diet information. ??? Stop smoking. Sign up for a quit-smoking program. Or ask your healthcare team for help. ??? Exercise as your healthcare team tells you to. Your healthcare team??may advise you to start a cardiac rehab program. Cardiac rehab is an exercise program where trained healthcare staff watchyour progress and stress on your heart while you exercise. Ask your team how to enroll. ??? Don't swim or take baths until your healthcare team says it???s OK. You can shower the day after the procedure. Keep the site clean and dry. This keeps the incision from getting wet and infected until the skin and artery can heal. ??? Follow all other after-care instructions from your team.? Follow-up care ??? Make a follow-up appointment as advised. It's common to have a follow-up appointment 2 to 4 weeks after an angioplasty or coronary stent procedure. ??? Make a yearly appointment. This is??to make sure you're still doing well and not having any new symptoms. ??? Don't wait for a follow-up appointment if your medicines aren't working or you're having heart-related symptoms. Call your healthcare provider. ?? When to get medical care Call your healthcare provider right away if you have any of these: ??? Severe or increasing pain, numbness, coldness, or a bluish color in the leg or arm that held the catheter ??? Fever of 100.4?? F??( 38??C) or higher, or as advised by your healthcare provider ??? Signs of infection at the incision site. These include redness, swelling, drainage, or warmth. ??? Bleeding, bruising, or a lot of??swelling where the catheter was inserted ??? Blood in your urine ??? Black or tarry stools ??? Any unusual bleeding ??? Irregular, very slow, or fast heartbeat ??? Dizziness ?? Call 911 Call 911 if you have any of these: ??? Chest pain ??? Shortness of breath ??? Sudden numbness or weakness in arms, legs, or face, or trouble speaking ??? The puncture site swells up very fast ??? Bleeding from the puncture site that doesn't slow down with firm pressure ?? Last Reviewed Date: 2021 ?? [id number] [employer]. All rights reserved. This information is not intended as a substitute for professional medical care. Always follow your healthcare professional's instructions. ?? Patient Care team information Care Team Personnel Name: Efraín Perry NP Position: Reference Physician Member Role: PCP Address: Address: [address] [place] [address]- Name: Nohemy DOUGLASS, Lisbet Position: S RN Member Role: Primary Care Nurse Care Team Related Persons Name: JERICA BLACKWELL Name: [facility], NONE
--- OUTSIDE RECORDS SUMMARY | 2023-10-25 08:06 | XMS_ITS | Continuity of Care Document ---
Author Name Unknown Organization [facility] Address [address] [place] [address]- Care Team Providers Care Furniture Maker Name Role Phone Vicky GASPAR, Efraín Rendon Primary Care Physician Encounter [facility] [place] Date(s): 03/04/23 - 04/03/23 [facility] [address] [place] [address]- [place] Allergies, Adverse Reactions, Alerts Substance Reaction [...] 03/02/23 10:09:00 EDT, Route to Pharmacy Electronically, [facility]/pharmacy #[id number], Partial fill upon patient request if the [...] Reference Physician Member Role: PCP Address: Address: [address] [place] [id number] Name: Lisbet Slater RN Position: Geraldo RN Member Role: Primary Care Nurse Care Team Related Persons Name: JERICA SANABRIA Name: JERICA BLACKWELL Name: STATES, NONE
--- OUTSIDE RECORDS SUMMARY | 2023-10-25 08:06 | XMS_ITS | Continuity of Care Document ---
Author Name Unknown Organization [facility] Cheyenne david Address [address] [place] [address]- Care Team Providers Care Building Guard Deputy Sheriff Name Role Phone Vicky GASPAR, Efraín Rendon Primary Care Physician Encounter [facility] Date(s): 03/25/23 - 04/24/23 [facility] Cardiac Surgery [address] [place] [id number] Allergies, Adverse Reactions, Alerts Substance Reaction Severity [...] 04/05/23 9:30:00 EDT, Route to Pharmacy Electronically, [facility]/pharmacy #[id number], Partial fill upon patient request if the [...] Reference Physician Member Role: PCP Address: Address: [address] [place] [address] Name: Lisbet Slater RN Position: Geraldo RN Member Role: Primary Care Nurse Care Team Related Persons Name: JERICA SANABRIA Name: JERICA BLACKWELL Name: STATES, NONE
--- OUTSIDE RECORDS SUMMARY | 2023-10-25 08:06 | XMS_ITS | Continuity of Care Document ---
Author Name Unknown Organization [facility] Address [address] [place] [address]- Care Team Providers Care Clock And Watch Hands Painter Name Role Phone Vicky GASPAR, Efraín Rendon Primary Care Physician [place] [facility] [place]02[place]23 - 05/02/23 [facility] [address] [place] [address]- Allergies, Adverse Reactions, Alerts Substance Reaction Severity [...] 04/05/23 9:30:00 EDT, Route to Pharmacy Electronically, [facility]/pharmacy #[id number], Partial fill upon patient request if the [...] Reference Physician Member Role: PCP Address: Address: [address] [place] [id number] Name: Lisbet Slater RN Position: Geraldo RN Member Role: Primary Care Nurse Care Team Related Persons Name: JERICA SANABRIA Name: JERICA BLACKWELL Name: STATES, NONE
--- OUTSIDE RECORDS SUMMARY | 2023-10-25 08:06 | XMS_ITS | Continuity of Care Document ---
Author Name Unknown Organization [facility] Card[facility] Cheyenne david Address [address] [place] [address]- Care Team Providers Care Logistics And Planning Manager Name Role Phone Vicky GASPAR, Efraín Rendon Primary Care Physician [phone] Encounter [facility] [place] Date(s): 02/22/23 - 03/24/23 [facility] Cardiac Surgery [address] [place] [address] Allergies, Adverse Reactions, Alerts Substance Reaction [...] 03/02/23 10:09:00 EDT, Route to Pharmacy Electronically, [facility]/pharmacy #[id number], Partial fill upon patient request if the [...] Reference Physician Member Role: PCP Address: Address: [address] [place] [address] Name: Lisbet Slater RN Position: Geraldo RN Member Role: Primary Care Nurse Care Team Related Persons Name: JERICA SANABRIA Name: JERICA BLACKWELL Name: STATES, NONE
--- OUTSIDE RECORDS SUMMARY | 2023-10-25 08:06 | XMS_ITS | Continuity of Care Document ---
Author Name Unknown Organization [facility] Address [address] [place] [address]- Care Team Providers Care Pretzel Twister Name Role Phone Vicky GASPAR, Efraín Rendon Primary Care Physician Encounter [facility] [place] Date(s): 02/26/23 - 03/28/[address] [address]- Attending Physician: Gabriele Woodward Admitting Physician: Admtr, Ar8 Referring Physician: Admtr, Ar8 Allergies, Adverse Reactions, [...] to Pharmacy Electronically, [facility]/pharmacy #[id number], Partial fill upon patient request if the [...] Reference Physician Member Role: PCP Address: Address: [address] [place] [id number] Name: Lisbet Slater RN Position: Geraldo RN Member Role: Primary Care Nurse Care Team Related Persons Name: JERICA SANABRIA Name: JERICA BLACKWELL Name: STATES, NONE
--- OUTSIDE RECORDS SUMMARY | 2023-10-25 08:06 | XMS_ITS | Continuity of Care Document ---
Author Name Unknown Organization [facility] Address [address] [place] [address]- Care Team Providers Care New Car Get Ready Mechanic Name Role Phone Vicky GASPAR, Efraín Rendon Primary Care Physician [phone] [place] [facility] [place] Date(s): 08/20/22 - 12/18/22 [facility] [address] [place] [address]- Attending Physician: Efraín Junior MD Admitting Physician: [...] Reference Physician Member Role: PCP Address: Address: [address] [place] [address] Name: Lisbte Slater RN Position: Geraldo RN Member Role: Primary Care Nurse Care Team Related Persons Name: JERICA SANABRIA Name: JERICA BLACKWELL Name: STATES, NONE
--- OUTSIDE RECORDS SUMMARY | 2023-10-25 08:06 | XMS_ITS | Continuity of Care Document ---
Author Name Unknown Organization [facility] Address [address] [facility] [place] [address]- Care Team Providers Care Accounts Specialist Name Role Phone Vicky GASPAR, Efraín Rendon Primary Care Physician [phone] Encounter [facility] [place] Date(s): 08/11/22 - 09/10/22 [facility] [address] [place] [address]- Allergies, Adverse Reactions, Alerts Substance Reaction Severity [...] Reference Physician Member Role: PCP Address: Address: [address] [place] [address] Name: Lisbet Slater RN Position: [facility] RN Member Role: Primary Care Nurse Care Team Related Persons Name: JERICA BLACKWELL Name: STATES, NONE
--- OUTSIDE RECORDS SUMMARY | 2023-10-25 08:06 | XMS_ITS | Continuity of Care Document ---
Author Name Unknown Organization [facility] Address [address] [place] [address]- Care Team Providers Care Brush Polisher Name Role Phone Vicky GASPAR, Efraín Rendon Primary Care Physician Encounter [facility] [place] ACCT R [id number] Date(s): 07/01/22 - 07/31/[address] [address]- Attending Physician: Gabriele Woodward Admitting Physician: AdmGabriele mazariegos Referring Physician: Admtr ArNedra Allergies, Adverse Reactions, Alerts Substance Reaction Severity [...] Date: 11/19/15 Status: Ordered Problem List Condition Confirmation Course Effective Dates Status Health [facility] Informant Disease of prostate Confirmed Active Dyspnea Confirmed Active Tobacco abuse Confirmed Active Social History Social History Type Response Smoking Status Current every day sm oker; Other: patient stated he smokes half a pack a day of the mildest cigarettes they sell ; entered on: 09/03/15 Sex Patient Care team information Personnel Name: Vicky GASPAR , Efraín Rendon Address: Address: [address] [place] [id number]
--- OUTSIDE RECORDS SUMMARY | 2023-10-25 08:06 | XMS_ITS | Continuity of Care Document ---
Author Name Unknown Organization [facility] Card[facility] Cheyenne david Address [address] [place] [address]- Care Team Providers Care Segmental Paving Supervisor Name Role Phone Vicky GASPAR, Efraín Rendon Primary Care Physician [phone] Encounter [facility] [place] Date(s): 12/07/22 - 01/06/23 [facility] Cardiac Surgery [address] [place] [address]- Allergies, Adverse Reactions, Alerts Substance Reaction Severity [...] Reference Physician Member Role: PCP Address: Address: [address] [place] [id number] Name: Lisbet Slater RN Position: S RN Member Role: Primary Care Nurse Care Team Related Persons Name: JERICA SANABRIA Name: JERICA BLACKWELL Name: STATES, NONE
--- OUTSIDE RECORDS SUMMARY | 2023-10-25 08:06 | XMS_ITS | Continuity of Care Document ---
Author Name Unknown Organization [facility] Address [address] [place] [address]- Care Team Providers Care Track Mechanic Name Role Phone Vicky GASPAR, Efraín Rendon Primary Care Physician [phone] Encounter [facility] [place] Date(s): 10/19/22 - 11/18/22 [facility] [address] [place] [address]- [place] Allergies, Adverse Reactions, Alerts Substance Reaction [...] Reference Physician Member Role: PCP Address: Address: [address] [place] [address]- Name: Lisbet Slater RN Position: JODI RN Member Role: Primary Care Nurse Care Team Related Persons Name: JERICA BLACKWELL Name: STATES, NONE
--- OUTSIDE RECORDS SUMMARY | 2023-10-25 08:06 | XMS_ITS | Continuity of Care Document ---
Author Name Unknown Organization [facility] Address [address] [address]- Care Team Providers Care Quencher Operator Name Role Phone iVcky GASPAR, Efraín Rendon Primary Care Physician En[place] [facility] [place] ACCT R [id number] Date(s): 02/17/22 - 03/19/22 [facility] [address] [place] [id number] Attending Physician: Gabriele Woodward Admitting Physician: AdmtrGabriele [...]
--- OUTSIDE RECORDS SUMMARY | 2023-10-25 08:06 | XMS_ITS | Continuity of Care Document ---
Author Name Unknown Organization [facility] ter Address [address] [place] [id number]- Care Team Providers Care Apparatus Lineman Name Role Phone Vicky GASPAR, Efraín Rendon Primary Care Physician [phone] Encounter [facility] Date(s): 03/01/23 - 03/02/[address] [address] Discharge Disposition: A-D/C Home Attending Physician: Tavares Jamil MD Admitting Physician: Tavares Jamil MD Referring Physician: Tan Coronado MD Allergies, [...] Recorded Medications amLODIPine 5 mg oral tablet 5 mg, Tablet, By Mouth, 03/02/23 9:28:00 EDT Start Date: 03/02/23 Stop Date: 03/02/23 Status: Completed amLODIPine 5 mg oral tablet 1 tablet [...] 03/02/23 10:09:00 EDT, Route to Pharmacy Electronically, [facility]/pharmacy #[id number], Partial fill upon patient request if the [...] gabapentin 300 mg oral capsule 300 mg, Capsule, By Mouth, 03/02/23 9:01:00 EDT Start Date: 03/02/23 Stop Date: 03/02/23 Status: Completed gabapentin 300 mg oral capsule 300 mg, [...] opioid drug. Start Date: 11/17/22 Status: Ordered losartan 50 mg oral tablet 100 mg, Tablet, By Mouth, 03/02/23 9:29:00 EDT Start Date: 03/02/23 Stop Date: 03/02/23 Status: Completed naproxen 500 mg (as sodium) oral tablet, [...] Smoking Confirmed Active Tobacco abuse Confirmed Active Results Radiology Reports * Exam Date Time Procedure Performing Provider Status 03/02/23 6:03 AM Chest Portable Marc Olvera; Auth (Jania ified) Notes: (Chest Portable) Reason For Exam: S/P TAVR;Postop RESULT: Chest Portable Examination: Portable chest performed on 03/02/2023. History: Status post TAVR. Findings: A frontal view of the chest is compared to a prior study dated 03/01/2023. The cardiac silhouette is within normal limits for size. An aortic valve replacement is present. The lungs are clear. Surgical clips in the right axilla are noted. The osseous structures are intact. IMPRESSION: There is no acute cardiopulmonary disease. WSN: [id number] Ordering Physician: Woo Chamberlain Dictated By: Kate Aguilar MD Dictated Date/Time: 03/02/23 8:34 am Reviewed By: Kate Aguilar MD Signed By: Kate Aguilar MD Signed Date/Time: 03/02/23 8:34 am Transcribed By: MADDI Transcribed Date/Time: 03/02/23 8:33 am * Exam Date Time Procedure Performing Provider Status 03/01/23 3:51 PM Chest Portable Aster Miles (Verified) Notes: (Chest Portable) Reason For Exam: S/P TAVR;Postop RESULT: Chest Portable Chest Portable CLINICAL INDICATION: Reason: Postop; S P TAVR; Clinical Question(s): Other:; Cardiac Tamponade; Special Instructions: on admission to unit COMPARISON: Chest x-ray, 09/21/2017. Chest CT, 01/13/2022. FINDINGS: The cardiac silhouette is within normal limits. Patient is status post TAVR. Hilar and mediastinal contours are normal. The lungs are clear. There is no pleural effusion, pneumothorax, or evidence of CHF. No acute osseous abnormality is noted. Right axillary surgical clips noted. IMPRESSION: Status post TAVR. No acute cardiopulmonary process. WSN: [id number] Ordering Physician: Woo Chamberlain Dictated By: Kristy Corral MD Dictated Date/Time: 03/01/23 3:54 pm Reviewed By: Kristy Corral MD Signed By: Kristy Corral MD Signed Date/Time: 03/01/23 3:54 pm Transcribed By: MADDI Transcribed Date/Time: 03/01/23 3:53 pm Vital Signs Most recent to oldest [Reference Range]: 1 2 3 Height 167 cm (03/02/23 8:28 AM) 167 cm (03/02/23 3:27 AM) 167 cm (03/01/23 11:00 PM) Weight 91.8 kg (03/01/23 8:40 PM) 91.8 kg (03/01/23 8:39 PM) 91.8 kg (03/01/23 8:39 PM) Oxygen Saturation [94-100 %] 93 % *L* (03/02/23 8:28 AM) 93 % *L* (03/02/23 3:27 AM) 92 % *L* (03/01/23 11:00 PM) Pulse Rate [55-90 bpm] 81 bpm (03/02/23 8:28 AM) 84 bpm (03/02/23 3:27 AM) 78 bpm (03/01/23 11:00 PM) Body Mass Index [18.5-24.99 kg/m2] 32.92 kg/m2 *>HHI* (03/01/23 8:40 PM) 32.92 kg/m2 *>HHI* (03/01/23 8:39 PM) 34.17 kg/m2 *>HHI* (03/01/23 9:24 AM) Blood Pressure [90-138/55-84 mm Hg] 150/68mm Hg *H* (03/02/23 9:46 AM) 150/68mm Hg *H* (03/02/23 9:46 AM) 150/68mm Hg *H* (03/02/23 8:28 AM) Respiratory Rate [16-30 br/min] 20 br/min (03/02/23 10:46 AM) 20 br/min (03/02/23 9:46 AM) 18 br/min (03/02/23 8:28 AM) Temperature [96.8-100.4 DegF] 98.9 DegF (03/02/23 8:28 AM) 98.8 DegF (03/02/23 5:00 AM) 99.8 DegF (03/02/23 3:27 AM) Mode of Delivery (Oxygen) Room air (03/02/23 8:28 AM) Room air (03/02/23 3:27 AM) Room air (03/01/23 11:00 PM) Blood pressure sites Arm, right (03/02/23 8:28 AM) Arm, left (03/02/23 3:27 AM) Arm, right (03/01/23 11:00 PM) Temperature Route Oral (03/02/23 8:28 AM) Oral (03/02/23 5:00 AM) Oral (03/02/23 3:27 AM) Dry Weight 95 kg (03/01/23 8:40 PM) Weight Obtained Via Bed scale (03/01/23 8:40 PM) Bed scale (03/01/23 8:39 PM) Bed scale (03/01/23 8:39 PM) Social History Social History Type Response Smoking Status 10 or more cigarette s (1/2 pack or more)/day in last 30 days entered on: 01/20/23 Sex Note * Event Display: Hemodynamic Procedure Report Authored Date: * Sheldon Haider RN: PERFORM Event Display: Discharge/Transfer Note Hospital Authored Date: Nursing Discharge Note Entered On: 03/02/2023 12:04 EDT Performed On: 03/02/2023 12:04 EDT by Sheldon Haider RN Nursing Discharge Note 2 Discharge Time : 03/02/2023 12:04 EDT Discharge Level of Care at Discharge : Home/Care Home/Foster Care Patient Left Unit Via : Wheelchair Patient Accompanied Off Unit with : Responsible adult DC Instructions Provided & Signed by Pt : Yes Patient Understands D/C Instructions : Yes Patient Instructions Discharge Signed : Yes Did Pt have Specialty Bed or Wound Vac : No Sheldon Haider RN - 03/02/2023 12:04 EDT * Valencia Hopson NP: PERFORM, VERIFY, MODIFY, SIGN Event Display: Discharge/Transfer Note Hospital Authored Date: [id number] Patient: SAHIL BLAIR Age: 72 years Sex: Male : 1950 Associated Diagnoses: None Author: Valencia Hopson NP Discharge Information Chief Complaint/Reason for Admission experiencing some mild dyspnea on exertion Principal Discharge Diagnosis (aortic stenosis): Present on admission - yes. Secondary Discharge Diagnoses (aortic stenosis): Present on admission - yes. Patient is aware of diagnosis Procedures Date: 03/01/23 Procedure: Left transfemoral TAVR with a 26 Mcgregor S3 Ultra valve.. Attending Consultants Loulou CARPENTER, Anthony. Cliff CARPENTER, Tan Moore Immunizations (Posting Range: 03/04/2013 0:00 EDT - 03/02/2023 10:14 EDT). Allergies Allergic Reactions (Selected) Severity Not Documented Augmentin- No reactions were documented. Formaldehyde topical- No reactions were documented. Other Environmental Allergy- No reactions were documented. Discharge condition: good Compared to admission: improved Functional Status: ambulatory Discharge Disposition Home: self care. Discharge Summary distribution: Route to attending, referring, and primary care provider. Route to: Vicky GASPAR , Efraín Jo Route to: Cliff CARPENTER, Tan Moore Route to: Trinh Echeverria RN. Route to: Viktoriya Motley RN. Route to: Cynthia Carvajal RN. Discharge Date 03/02/2023 Admission Date 03/01/2023 Code Status Full Resuscitation. Draft of Summary Completed by: Valencia Hopson NP. Hospital Course PMH: 72-year-old male with prior history of hypertension, hyperlipidemia, CAD, smoking, diverticulosis, COPD, who presented for a scheduled TAVR procedure. The patient reports that he has been known to have aortic stenosis for several years and has been followed with echocardiography. His most recent echocardiogram does show progression of disease into the severe category. He has been experiencing some mild dyspnea on exertion. Cardiac catheterization also showed moderate coronary disease. He was referred for valve replacement. Date: 03/01/23 Procedure: Left transfemoral TAVR with a 26 Mcgregor S3 Ultra valve. SURGEON: Dr. Loulou Chapin [employer]S PROFESSIONAL: Dr. Cliff Maddox ?PLAN BY SYSTEM ?NEUROLOGIC Chronic pain --Continue home scheduled gabapentin and naproxen PRN, PRN tylenol/codeine --Mobility: Increase activity as tolerates. ?CARDIOVASCULAR CAD/HTN/HLD s/p TAVR on 03/01/23: Left transfemoral TAVR with a 26 Mcgregor S3 Ultra valve. --ASA 81mg --Atorvastatin 20mg daily --Amlodipine 5mg daily --Losartan 100mg daily -- s/p TAVR (Plavix 75mg daily for 6 months, and aspirin 81mg daily) --Rhythm: EKG NSR --Echo s/p TAVR 03/02/23: 1) The LV systolic function is hyperdynamic. The left ventricular ejectionfraction is 70-75%. There are no definite regional wall motion abnormalities. 2) There is mid cavity obliteration without obstruction. 3) The right ventricular size and function appears grossly normal.4) There is a bioprosthetic valve (26mm Mani 3 Ultra TAVR) in the aortic position, which is not well visualized. There is no central perivalvular leak. There was no central prosthetic valve regurgitation. The mean gradient is 14 mmHg. --Usual post TAVR f/u with Dr Coronado, BMP labs within 2 weeks ?RESPIRATORY COPD Smoker --on RA --CXR stable --continues to smoke 10-15 cigarettes a day. He smoked for about 50 years, cessation education donehowever uninterested ?GASTROINTESTINAL -- tolerated cardiac diet. --continue Vitamin D supplementation ?RENAL/FLUIDS/LYTES BPH -- Cr ?? 1.0, at baseline -- continue home finasteride and Flomax -- no issues voiding -- BMP labs outpatient ?INFECTIOUS DISEASE --No sign of active infection --prophylactic antibiotic protocol completed ?HEMATOLOGY --post procedure HH 12&37, pLT 166 --groins intact without hematoma ?ENDOCRINE --no issues SKIN -- groins without hematoma DISPOSITION: Home Prescription Given this visit:Prescriptions Clopidogrel (clopidogrel 75 mg oral tablet) 1 tablet = 75 mg, By Mouth, Daily, # 30 tablet, 0 Refills, [facility]/pharmacy #[id number], [address] [place] [address] [phone] Next Dose: Miscellaneous Rx (Labs) , # 1 each, 0 Refills, BMP labs within 2 weeks Next Dose: Patient Instructions Given:No qualifying data available Education Given:Getting Started with Cardiac Rehab: Exercise M-TAVR Discharge Instructions Patient Follow-up:Added Follow Up Time Frame Comments ECHO 03/25/2023 10:00 BMP ;abs can also be done at this appointment [facility] Cardiac Rehabilitation 03/30/2023 08:00 Please call [phone] if you cannot keep this appt. Tan Coronado 2023 13:25 Follow up, 2 weeks 1 to 2 weeks BMP labs at any [facility] Laboratories Efraín Perry NP 2 to 5 weeks Call you PCP for an appointment . Significant Results Results: Vital signs : VITAL SIGNS SECTION 03/02/2023 8:28 EDT Temperature 98.9 DegF Temperature Route Oral Pulse Rate 81 bpm Respiratory Rate 18 br/min Systolic Blood Pressure 150 mm Hg H Diastolic Blood Pressure 68 mm Hg Blood pressure sites Arm, right Mean Arterial Pressure 95 mm Hg Pulse Pressure 82 mm Hg Oxygen Saturation 93 % L Mode of Delivery (Oxygen) Room air , Laboratory : LABORATORY 03/02/2023 1:00 EDT WBC 9.8 k/mm3 RBC 4.11 m/mm3 L Hgb 12.1 Gm/dL L Hct 37.3 % L MCV 90.8 femtoliters MCH 29.4 pg MCHC 32.4 g/dL L Platelet Count 166 k/mm3 RDW-SD 47.4 femtoliters H MPV 10.8 femtoliters Nucleated RBC (Automated) 0.0 #/100 WBC'S Abs. NRBC 0.0 k/mm3 Abs. Neut 7.8 k/mm3 H Abs. Lymph 0.7 k/mm3 L Abs. [place] 0.9 k/mm3 Abs. Eo 0.3 k/mm3 Abs. Baso 0.1 k/mm3 Neut % 79.5 % H Lymph % 7.2 % L [place] % 9.1 % Eos % 3.3 % Baso % 0.5 % Imm Gran 0.4 % Abs. Imm Gran 0.0 k/mm3 Sodium 140 mmol/L Potassium 4.0 mmol/L Chloride 107 mmol/L Bicarbonate Level 24 mmol/L Anion Gap 9 BUN 20 mg/dL Creatinine-Blood 1.0 mg/dL Estimated GFR Creatinine 78 ML/MIN/1.73 M2 Magnesium 1.9 mg/dL . 30 minutes spent on discharge Discharge Plan Diet/Activity/Patient Education/Follow Up Follow Up with: [facility] Cardiac Rehabilitation 03/30/2023 8:00 AM Please call [phone] if you cannot keep this appt.; Tan Coronado 2023 1:25 PM; GLEN 03/25/2023 10:00 AM BMP ;abs can also be done at this appointment ; Follow up, 2 weeks Within 1 to 2 weeks BMP labs at any [facility] Laboratories; Efraín Perry NP Within 2 to 5 weeks Call you PCP for an appointment. Discharge Disposition Discharge: home. MEDICATION LIST (Selected) Prescriptions Prescribed Labs: Labs, See Instructions, # 1 each, Refills 0, Tot. Refills 0, Maintenance, BMP labs within 2 weeks, 03/02/23 10:30:00 EDT, Supply clopidogrel 75 mg oral tablet: 75 mg, 1, tablet, By Mouth, Daily, # 30 tablet, Refills 0, Tot. Refills 0, Maintenance, 03/02/23 10:09:00 EDT, Route to Pharmacy Electronically, [facility]/pharmacy #[id number], Partial fill upon patient request if the prescription is for a schedule II opioid drug... Documented Medications Documented Tylenol with Codeine #4: By Mouth, Every 6 hours, 0 Refills, Maintenance, 01/20/23 16:44:00 EDT, Partial fill upon patient request if the prescription is for a schedule II opioid drug. Vitamin D3 1000 intl units oral capsule: 1 capsule = 25 mcg, By Mouth, Daily, # 75 capsule, 0 Refills, Maintenance, 08/12/22 15:09:00 EDT, Capsule, Partial fill upon patient request if the prescription is for a schedule II opioid drug. amLODIPine 5 mg oral tablet: 1 tablet = 5 mg, By Mouth, Daily, # 30 tablet, 0 Refills, Maintenance,03/01/23 8:07:00 EDT, Tablet, Partial fill upon patient request if the prescription is for a schedule II opioid drug. aspirin 81 mg oral delayed release tablet: 81 mg, 1, tablet, By Mouth, Daily, # 30 tablet, Refills 0, Maintenance, 01/20/23 16:44:00 EDT, Partial fill upon patient request if the prescription is for a schedule II opioid drug. atorvastatin 20 mg oral tablet: 1 tablet = 20 mg, By Mouth, Daily, # 90 tablet, 0 Refills, Maintenance, 08/12/22 15:08:00 EDT, Tablet, Partial fill upon patient request if the prescription is for a schedule II opioid drug. finasteride 5 mg oral tablet: 1 tablet = 5 mg, By Mouth, Daily, # 30 tablet, 0 Refills, Maintenance, 08/12/22 15:08:00 EDT, Tablet, Partial fill upon patient request if the prescription is for a schedule II opioid drug. gabapentin 300 mg oral capsule: 300 mg, 1, capsule, By Mouth, 3 times a day, Refills 0, Maintenance, 08/12/22 15:09:00 EDT, Partial fill upon patient request if the prescription is for a schedule II opioid drug. losartan 100 mg oral tablet: 1 tablet = 100 mg, By Mouth, Daily, # 30 tablet, 0 Refills, Maintenance, 11/17/22 8:36:00 EST, Tablet, Partial fill upon patient request if the prescription is for a schedule II opioid drug. naproxen 500 mg (as sodium) oral tablet, extended release: 2 tablet = 1,000 mg, By Mouth, Daily, PRN as needed for pain, # 20 tablet, 0 Refills, Maintenance, 08/12/22 15:09:00 EDT, ER Tablet, Partialfill upon patient request if the prescription is for a schedule II opioid drug. tamsulosin 0.4 mg oral capsule: 0.4 mg, 1, capsule, By Mouth, Daily, # 30 capsule, Refills 0, Maintenance, 08/12/22 15:09:00 EDT, Partial fill upon patient request if the prescription is for a schedule II opioid drug. Therapies Smoking Cessation: Patient greater than or equal to 18 years Patient counseled to quit smoking. Wound care in groins: May take shower; do not apply lotions or perfumed soap to surgical wound; Patdry do not rub wounds. Call Cardiology Office for signs of infection which include fever, chills, reddness,pus like drainage or wound separation at any time for questions or concerns Weigh yourself daily at the same time of day, preferrably in the morning and record. If you gain orloose more than 3 pounds in 1 day or 5 pounds in one week, call the cardiology office. * Brittany Courtney RN: PERFORM Event Display: Patient Education/Instruction Authored Date: [id number] Inpatient Adult Discharge Instructions [address] [address] Name: SAHIL BLAIR : 1950 Visit: 03/01/2023 14:56:00 Current Date: 03/02/2023 11:38 Account: [id number] Inpatient Adult Discharge Instructions We would like [...] and their families. Surveys are administered by [employer] ?? If further treatment with your primary care physician or another doctor is recommended, it is important for you to keep the appointment. Call your primary care physician or return to the Emergency Department immediately if your condition worsens, fails to improve, or new symptoms develop. If you need to find a doctor, you can call [facility] [employer] for a referral at [phone] or toll free at [phone]) or log in to [email or web address].. ?? You can view and manage your care through the patient portal or by using a health care lucina of your choosing. [employer] is a website that allows you to securely view your medical information including your hospital discharge summary, office visit summaries, medications and follow-up visits. You can also request appointments, renew medications, and request access to your medical information using a health care lucina of your choosing, or just ask a question. You can enroll at [email or web address] or register during your next office visit. You have been discharged from [facility], Patient Care Unit: M6. If you have any questions regarding these instructions after you leave, please call us and we will be happy to assist you. [facility] Your Care Team Attending Physician Tavares Jamil MD Discharging Providers Valencia Hopson NP Reason for Your Visit AORTIC STENOSIS TAVR M2EMA 730AM ARR Your Diagnosis (aortic stenosis) Tests Performed Below is a partial list of the tests performed during your hospitalization. You may have had other tests and procedures not included in this list. Please discuss all test results with your provider. BUN CBC w/ Differential Creatinine Electrolytes GLUCOSE POC Hgb + Hct Magnesium Level XR Chest Portable Primary Care Provider Vicky GASPAR , Efraín Rendon Advance Directive . Discharge Vitals Temperature: 98.9 DegF Height: 167 cm Pulse Rate: 81 bpm Weight: 91.8 kg Respiratory Rate: 20 br/min Body Mass Index:??32.92 kg/m2??Critical Systolic Blood Pressure:??150 mm Hg??High Body surface area: 2.06 Systolic Blood Pressure:??150 mm Hg??High ?? Diastolic Blood Pressure: 68 mm Hg ?? Diastolic Blood Pressure: 68 mm Hg ?? Oxygen Saturation:??93 %??Low ?? Studies Pending All tests and labs ordered during this hospital stay have been completed unless listed below. Please discuss all pending results with your provider listed above in these instructions. ?? BUN CBC w/ Differential Creatinine Electrolytes Magnesium Level Type and Screen What to do next Instructions From Your Doctor Discharge Orders Scheduled Follow-Up Appointments Wednesday 1:25 PM EDT ?? With: Cliff CARPENTER, Tan Bryant Where: [facility] Cardiology [address] [place] [phone]- Status: Pending You Need to Schedule the Following Appointments Follow Up with??Tan Coronado When:??2023 01:25 PM EDT Where: [address] [place] [phone] Business (1) Follow Up with??[facility] Cardiac Rehabilitation When:??03/30/2023 08:00 AM EDT Why: Please call [phone] if you cannot keep this appt. Where: [address] [place] [address]- [phone] Follow Up with??ECHO When:??03/25/2023 10:00 AM EDT Why: BMP ;abs can also be done at this appointment Where: [address] [place] [address] 1st [place] [address]- [phone] Follow Up with??Follow up, 2 weeks When:??Within 1 to 2 weeks Why: BMP labs at any [facility] Follow Up with??Efraín Perry NP When:??Within 2 to 5 weeks Why: Call you PCP for an appointment Where: [address] [place] [phone]- Business (1) Discharge Medications SAHIL BLAIR :1950 Visit Date:03/01/2023 Medications: Please continue your medications until treatment is completed or stopped by your provider. Medications not listed below should be discontinued. Discuss any questions related to medications with your provider. What How Much When Instructions Next Dose New Clopidogrel (clopidogrel 75 mg oral tablet) 1 tab(s) Oral Daily Pickup at [facility]/pharmacy #[id number] Tomorrow 03/03 in a.m. New Miscellaneous Rx (Labs) See instructions BMP labs within 2 weeks ?? Printed Prescription Unchanged Acetaminophen/ Codeine (Tylenol with Codeine #4) Oral Every 6 hours As needed Unchanged Amlodipine (amLODIPine 5 mg oral tablet) 1 tab(s) Oral Daily Tomorrow 03/03 in a.m. Unchanged Aspirin (aspirin 81 mg oral delayed release tablet) 1 tab(s) Oral Daily Tomorrow 03/03 in a.m. Unchanged Atorvastatin (atorvastatin 20 mg oral tablet) 1 tab(s) Oral Daily Tomorrow 03/03 in a.m. Unchanged Cholecalciferol (Vitamin D3 1000 intl units oral capsule) 1 capsule Oral Daily Tomorrow 03/03 in a.m. Unchanged Finasteride (finasteride 5 mg oral tablet) 1 tab(s) Oral Daily Tomorrow 03/03 in a.m. Unchanged Gabapentin (gabapentin 300 mg oral capsule) 1 capsule Oral 3 times a day Today 03/02 in afternoon Unchanged Losartan (losartan 100 mg oral tablet) 1 tab(s) Oral Daily Tomorrow 03/03 in a.m. Unchanged Naproxen (naproxen 500 mg (as sodium) oral tablet, extended release) 2 tab(s) Oral Daily as needed for as needed for pain As needed Unchanged Tamsulosin (tamsulosin 0.4 mg oral capsule) 1 capsule Oral Daily Tomorrow 03/03 in a.m. Pharmacy Information [facility]/pharmacy #[id number]: [address] [place] [id number] [phone] Test Results Below is a partial list of the most recent Laboratory test results done prior to this discharge. You may have had other tests and procedures not included in this list. Please discuss all test resultswith your provider. Est Creatinine Clearance - 60.59 mL/min (03/02/2023) RBC Available - RE (03/01/2023) RBC Unit ID - [id number] (03/01/2023) BUN (03/02/2023) ???BUN - 20 mg/dL CBC w/ Differential (03/02/2023) ???WBC - 9.8 k/mm3???RBC - 4.11 m/mm3???Hgb - 12.1 Gm/dL???Hct - 37.3 %???MCV - 90.8 femtoliters???MCH - 29.4 pg???MCHC - 32.4 g/dL???Platelet Count - 166 k/mm3???RDW-SD - 47.4 femtoliters???MPV - 10.8 femtoliters???Nucleated RBC (Automated) - 0.0 #/100 WBC'S???Abs. NRBC - 0.0 k/mm3???Abs. Neut - 7.8 k/mm3???Abs. Lymph - 0.7 k/mm3???Abs. [place] - 0.9 k/mm3???Abs. Eo - 0.3 k/mm3???Abs. Baso - 0.1 k/mm3???Neut % - 79.5 %???Lymph % - 7.2 %???[place] % - 9.1 %???Eos % - 3.3 %???Baso % - 0.5 %???Imm Gran- 0.4 %???Abs. Imm Gran - 0.0 k/mm3 Creatinine (03/02/2023) ???Creatinine-Blood - 1.0 mg/dL???Estimated GFR Creatinine - 78 ML/MIN/1.73 M2 Electrolytes (03/02/2023) ???Sodium - 140 mmol/L???Potassium - 4.0 mmol/L???Chloride - 107 mmol/L???Bicarbonate Level - 24 mmol/L???Anion Gap - 9 GLUCOSE POC (03/01/2023) ???Glucose, POC - 95 mg/dL Hgb + Hct (03/01/2023) ???Hgb - 12.3 Gm/dL???Hct - 38.8 % Magnesium Level (03/02/2023) ???Magnesium - 1.9 mg/dL Allergies (NKA means No Known Allergies) Augmentin Other Environmental Allergy formaldehyde topical Problems Active Problems??(9) Aortic stenosis?? COPD (chronic obstructive pulmonary disease)?? Disease of prostate?? Dyspnea?? HTN (hypertension)?? Hyperlipidemia?? Obese class I?? Smoking?? Tobacco abuse?? Education Materials Below is the list of Educational Leaflet Providered with your Discharge Instructions. Getting Started with Cardiac Rehab: Exercise?? M-TAVR Discharge Instructions?? Valuables and Belongings I fully understand and agree that [facility] accepts no responsibility for all my personal [...] patient Date for Pt to Sign Valuables/Belongings: 03/01/23 20:48:00 ?? Other Discharge Information ? Pulmonary Rehab Status?? Pulmonary Rehab Discharge Status?? Respiratory Rate: 20 br/min ? Cardiac Rehab Assessment?? Cardiac Rehab Inpatient Assessment?? Comments-Education: post TAVR ed, role of exercise Comments-Smoking Cessation: discuss NRT Comments-Exercise Activity: home walking Comments-Nutrition: mediterranean diet Comments-Other plan of care: refer to ph [facility] Common Emergency Awareness Tips IS IT A [...] are strongly encouraged to quit. Please call [facility] [facility] Ratify Link at [phone] or [phone] ([phone]) or log in to [email or web address] for referrals to smoking cessation programs. ?? 414 Suicide & Crisis Lifeline is available 03/05 if you or someone you know needs to find a reason to keep living. By calling 406 you'll be connected to a skilled, trained counselor at a crisis center in your area. INPATIENT DISCHARGE INSTRUCTIONS SIGNATURE PAGE SAHIL BLAIR Location:[facility] Registration Date and Time:03/01/2023 14:56 EDT Primary Care Physician: Efraín Perry NP, Attending Physician: Tavares Jamil MD, I SAHIL BLAIR, have received the above patient education materials/instructions and have verbalized understanding. If ambulance or transport services are being used I further acknowledge being given a choice of service. ?? If you need to contact me, please call me at this number: . 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 39063 Getting Started with Cardiac Rehab: Exercise Being more active is a walker part of heart attack prevention. It helps your heart muscle and the restof your body get stronger. It also helps control other heart risks. For lasting results, exercise needs to be a lifelong commitment. Getting started ??? Join a cardiac rehab program. This is one of the easiest ways to start exercising. When your healthcare provider says it???s OK, you can start exercising on your own at home or rose gym. Slowly work toward the goal of exercising at least 150 minutes a week. ??? Know that a managed plan of exercise will reduce your risk for another heart attack. ??? Find activities you enjoy, from walking with a friend to playing tennis. If you do what you like, you???ll not only enjoy yourself, but you???ll also be more likely to stick with it. ?? Cardiac rehabilitation In cardiac rehab, a team of providers creates an exercise plan for you and guides you through it. At first, the goal is to regain basic endurance and strength. You???ll start with something simple, such as walking. Then you???ll be given exercises to help you further increase strength and endurance, as well as flexibility. The skills you learn in cardiac rehab can benefit you for the rest of yourlife. ?? Last Reviewed Date: 2022 ?? [employer]. All rights reserved. This information is not intended as a substitute for professional medical care. Always follow your healthcare professional's instructions. ?? * Valencia Hopson NP: PERFORM Event Display: Patient Education Leaflets Authored Date: M-TAVR Discharge Instructions ?? 195 TAVR Discharge Instructions ?? Here is information related to your condition to help you when you get home. ?? Call the cardiac surgery office if you experience any of the following: Temperature of 101 or above, chills, sweating Changes in breathing, chest pain, abnormal pain, dizziness, fainting, change in pulse, pulse rate or palpitations, nausea, vomiting. Any bleeding or swelling at the incision site or if a hard lump forms. Any drainage, redness or tenderness or edges pulling apart at your surgical incision site. Gain more than 2-3 pounds in one day or 5 pounds in 1 week. Call your doctor if you experience any new rash, cough, dizziness, leg cramps, or blurred vision. ?? Call 911 if: You develop a new onset of weakness, numbness, loss of vision, slurred speech or any concern for a stroke or mini-stroke. If you develop numbness, tingling, loss of sensation, and or coolness to your arms or legs. If you develop chest pain or discomfort that is not relieved with rest. If profuse bleeding (does not stop in 30 minutes) occurs hold pressure to the site and call 911, [address]ot drive yourself to the nearest hospital. ?? FOLLOW-UP A follow up appointment should be made with your doctor. If you do not have an appointment scheduled already, make an appointment when you get home. Follow up care is important; it is strongly encouraged for you to keep your appointment. You may have more than one appointment, one with your pie cutter and one with your primary care doctor and one with the cardiac surgeon. Follow up with your trauma counsellor and/or cardiac surgeon in 7 to 14 days or as directed. Follow up with your primary care provider in 2-3 weeks or as recommended. Follow up with your primary pie cutter in 4-6 weeks or as recommended. If you do not have these appointments scheduled already, make an appointment when you get home. If you have any questions, please call the cardiac surgery office at [phone]. You will receive a booklet and card specific to the valve you received. This card should be carriedwith you at all times. ?? POST OPERATIVE DISCHARE INSTRUCTIONS ?? Bathing You can take a shower after you are discharged from the hospital. If you are unsteady on your feet use a shower chair. Avoid soaking in a tub for at least 4 weeks after the operation. You may need assistance with showering the first few days. ?? Incision Care Look at your incision site (groin and/or chest wall) every day until it is completely healed. You may see bruising, that is common after the procedure. Check your incision daily for drainage, redness, increased tenderness or edges pulling apart. Keep your incision clean and dry. Use only soap and water to cleanse the area around the incision. Once the incision is healed you may wash over the incision with a soft wash cloth and soap and water. Avoid using perfumed soaps or body washes, lotions, creams, oils, or ointments on your incision. This may irritate your incision and put you at risk for infection. ?? Activity Review the written materials given to you by the Cardiac Rehabilitation staff for your specific exercise program. No heavy lifting over 10 pounds (gallon of milk) for 1 week following the surgery. Gradually increase your activity. This will promote wound healing. Remember to alternate periods ofactivity with periods of rest. It is important to continue to do the coughing and deep breathing exercises to help prevent breathing complications. Take your temperature every day. Weigh yourself at the same time every morning. ?? Driving You shouldn???t drive for at least 4 weeks from the date of discharge or if you are taking prescription pain medication Always wear a seat belt ?? Sexual Relations You may resume sexual activity as soon as you feel comfortable, usually 4 weeks after your surgery. ?? Emotions It is common for people to feel more emotional or have difficulty concentrating or remembering after major surgery. These emotions may be the result of anesthesia, medications, or stress. These feelings are generally temporary and usually go away as you get back to your normal routine and activities. ?? Pain You may have some incisional discomfort during activity. You will be given prescription medication for the pain if you need it. ? Heart and Vascular Healthy Living ?? You can make lifestyle changes that can help lower your risk for heart and vascular disease. The following information can help you get started or help maintain your current lifestyle. ?? Diet Eat a low fat, low cholesterol diet. Limit the amount of salt in your diet as well as caffeine and alcohol use. Eating 3 to 4 small meals daily may be better tolerated than 1-2 large meals daily. Monitor your weight daily to insure that you are not gaining weight; same time, same scale. ?? Exercise Routine regular or prescribed exercise is strongly encouraged Avoid strenuous exercise after meals. ?? Smoking If you smoke, you are strongly encouraged to quit Smoking can increase blood pressure, decrease exercise tolerance and increase the tendency for blood to clot, decrease HDL (good) cholesterol and creates a higher risk for having a heart attack, stroke or other vascular events. If you smoke and are ready to quit, please let us know; referrals to smoking cessation programs areavailable. ?? Lowering your cholesterol Diet and exercise may not lower your cholesterol enough. Cholesterol medicines may help prevent further cholesterol buildup in the arteries. Talk to your doctor about taking medicine for high cholesterol. ?? High blood pressure and diabetes If you have high blood pressure or diabetes, continue with your prescribed treatments. These healthproblems if not controlled can put you at risk for having a heart attack, stroke, or other vascularevents. ?? Stress Learn to manage stress with ways that fit your needs. Some stress relieving activities include meditation, deep breathing techniques and exercise. Stress that isn???t managed can prolong healing and cause other health problems. If you need help managing stress talk to your caregiver for additional resources. ? History and physical note * Tavares Jamil MD: PERFORM Event Display: History and Physical Hospital Authored Date: [id number] SURGICAL HISTORY AND PHYSICAL DATE: 03/01/2023 CHIEF COMPLAINT: Aortic stenosis and coronary artery disease. HISTORY [...] he has not made that appointment yet. Dictated by: Tavares Jamil MD Signing Clinician: Tavares Jamil MD Dictated: 12/09/2022 03:47:11 Transcribed: 11:47:17 AM Transcribed by: REGAN/SAMANTHA/CHRISTIANE DocID: [id number] PRELIMINARY REPORT UNLESS MANUALLY/ELECTRONICALLY SIGNED cc: Tan Coronado M.D. [facility] [place], [address] Froylan Galvan M.D. [facility]. [facility] [address] [place], [address] Efraín Perry N.P. [facility] [address] [facility] [place], [address] EKG study * Event Display: ECG 12-Lead Authored Date: [id number] Please click on pdf link to open report * Event Display: ECG 12-Lead Authored Date: [id number] Ventricular Rate: 63 BPM Atrial Rate: 63 BPM P-R Interval: 184 ms QRS Duration: 96 ms Q-T Interval: 396 ms QTC Calculation(Bazett): 405 ms P [place]: 33 degrees R [place]: 32 degrees T [place]: 56 degrees Normal sinus rhythm Nonspecific T wave abnormality Abnormal ECG When compared with ECG of 01-MAR-2023 08:09, No significant change Confirmed by TARUN BOWMAN ([id number]) on 03/02/2023 10:31:32 PM Earlimart: TARUN BOWMAN * Event Display: ECG 12-Lead Authored Date: [id number] Please click on pdf link to open report * Event Display: ECG 12-Lead Authored Date: [id number] Ventricular Rate: 61 BPM Atrial Rate: 61 BPM P-R Interval: 200 ms QRS Duration: 92 ms Q-T Interval: 380 ms QTC Calculation(Bazett): 382 ms P [place]: 19 degrees R [place]: 12 degrees T [place]: 73 degrees Normal sinus rhythm Nonspecific T wave abnormality Abnormal ECG When compared with ECG of 20-JAN-2023 16:32, No significant change was found Confirmed by TARUN BOWMAN ([id number]) on 03/02/2023 10:29:43 PM Earlimart: TARUN BOWMAN Heart * Event Display: Echocardiogram - Complete Authored Date: [id number] Transthoracic Echocardiography Report (TTE) Patient Demographics Patient Name SAHIL BLAIR Date of Study 03/02/2023 Corporate Gender Male Facility Race Ethnicity Date of 1950 Height: 69 inches Age 72 year(s) Weight: 210.1 pounds Accession Number [id number] BSA: 2.11 m2 Room Number M612 BMI: 31.03 kg/m2 Referring Physician Bulmaro HARPER Physician Manager Printing Sarah Ochoa [facility] Indications Aortic stenosis and Prosthetic valve function. Clinical History Hypercholesterolemia. Hypertension. Obesity. COPD. Dyslipidemia. Tobacco use. Previous aortic valve replacement (TAVR 26 mm S3 Ultra) 03/01/2023 Study Data Type of Study TTE procedure:Echo Complete-Doppler, Colorflow, M-Mode. Procedure Information:TAVR post op day 1 Study Date03/02/2023 Start Time: 07:09 AM Study Location: [facility] Adult Echo Study Status: Bedside Patient Status: Routine Technical Quality: Technically difficult due to body habitus. Blood Pressure:136/47 mmHg EKG: Sinus with ectopy HR: 80 bpm Allergies - Other allergy:(formaldehyde topical, lotion, Augmentin). 2D Measurements LV Diastolic Dimension: 5.1 cm LV Systolic Dimension: 3 cm LV Septum Diastolic: 1.1 cm LV PW Diastolic: 0.8 cm AO Root Dimension: 3 cm LA Dimension: 4 cm LVOT Stroke Volume: 66.13 ml LVOT: 1.8 cm Stroke Volume Index31.34 ml/m2 Cardiac Index:2.51 l/min/m2 Doppler Measurements AV Peak Velocity: 247 cm/s MV Peak E-Wave: 79.5 cm/s AV Peak Gradient: 24.4 mmHg MV Peak A-Wave: 99 cm/s AV Mean Gradient: 14 mmHg MV E/A Ratio: 0.8 AV VTI:42.7 cm MV P1/2t: 83 msec LVOT Peak Velocity: 135 cm/s LVOT VTI26 cm MV Deceleration Time: 282 msec AV Area (Continuity):1.55 cm2 MV Area (PHT): 2.65 cm2 TR Velocity:225 cm/s PV Peak Velocity: 106 cm/s TR Gradient:20.25 mmHg PV Peak Gradient: 4.49 mmHg E' Septal Velocity: 6.74 cm/s E' Lateral Velocity: 6.64 cm/s E/Med E':11.10608 E/Lat E':11.58740 Cardiac Anatomy Left Ventricle/Interventricular Septum The left ventricular size is normal. The left ventricular wall thickness is upper normal. The LV systolic function is hyperdynamic. The left ventricular ejection fraction is 70-75%. There are no definite regional wall motion abnormalities. There is mid cavity obliteration without obstruction. Grade I, mild diastolic dysfunction with impaired LV relaxation. Left Atrium/Interatrial Septum The left atrium is normal in size. Aortic Valve There is a bioprosthetic valve (26mm Mani 3 Ultra TAVR) in the aortic position, which is not well visualized. There is no central perivalvular leak. There was no central prosthetic valve regurgitation. The mean gradient is 14 mmHg. Mitral Valve The mitral valve is grossly normal. There is no significant mitral regurgitation or mitral stenosis. Aorta The aortic root is normal in size. Right Ventricle The right ventricular size and function appears grossly normal. Right Atrium The right atrium is normal in size. Pulmonic Valve The pulmonic valve is poorly visualized. Tricuspid Valve The tricuspid valve is grossly normal. There is no significant tricuspid valve regurgitation. Pumonary Artery An accurate pulmonary artery pressure could not be obtained. Venous Structures The inferior vena cava appears normal. Pericardium/Extracardiac There is no significant pericardial effusion. Summary 1) The LV systolic function is hyperdynamic. The left ventricular ejection fraction is 70-75%. There are no definite regional wall motion abnormalities. 2) There is mid cavity obliteration without obstruction 3) The right ventricular size and function appears grossly normal. 4) There is a bioprosthetic valve (26mm Mani 3 Ultra TAVR) in the aortic position, which is not well visualized. There is no central perivalvular leak. There was no central prosthetic valve regurgitation. The mean gradient is 14 mmHg. Comparison Comparison is made to the study of March 01, 2023. Prior study is a limited study Signature * Event Display: Echocardiogram - Complete Authored Date: [id number] * Event Display: Echocardiogram - Complete Authored Date: [id number] Transthoracic Echocardiography Report (TTE) Patient Demographics Patient Name SAHIL BLAIR Date of Study 03/01/2023 Corporate Gender Male Facility Race Ethnicity Date of 1950 Height: 69 inches Age 72 year(s) Weight: 210.1 pounds Accession Number [id number] BSA: 2.11 m2 Room Number [id number] BMI: 31.03 kg/m2 Referring Physician Tan Coronado MD Interpreting Physician Silvestre Brown MD Manager Printing Quynh Lim [facility] Indications S/P aortic valve replacement (AVR). Study Data Type of Study TTE procedure:Echo 2D Limited or Follow-up. Procedure Information:26mm S3 TAVR Study Date03/01/2023 Start Time: 02:38 PM Study Location: [facility] Adult Echo Study Status: labor/excavator Patient Status: Routine Technical Quality: Technically difficult due to restricted mobility. EKG: Normal sinus rhythm Allergies - Other allergy:(formaldehyde topical, lotion, Augmentin). 2D Measurements LVOT Stroke Volume: 106.97 ml LVOT: 2.1 cm Stroke Volume Index50.7 ml/m2 Doppler Measurements AV Peak Velocity: 198 cm/s AV Peak Gradient: 15.68 mmHg AV Mean Gradient: 7 mmHg AV VTI:37 cm LVOT Peak Velocity: 133 cm/s LVOT VTI30.9 cm AV Area (Continuity):2.89 cm2 Cardiac Anatomy Left Ventricle/Interventricular Septum The LV systolic function appears vigorous on available 3-chamber and 4-chamber views. Aortic Valve There is a transcatheter aortic valve implantation (CHRISSY 26mm S3) in the aortic position, which is not well seen. Mitral Valve The mitral valve appears mildly thickened. There is no significant mitral regurgitation seen on available views. Summary 1. There is a transcatheter aortic valve implantation (CHRISSY 26mm S3) in the aortic position, which is not well seen. There is no central valvular leak. There is trivial perivalvular leak. The mean gradient is 7 mmHg. 2. The mitral valve appears mildly thickened. There is no significant mitral regurgitation seen on available views. 3. The LV systolic function appears vigorous on available 3-chamber and 4-chamber views. Comparison Comparison is made to the outside study of August 27, 2022. Patient is now s/p transcatheter aortic valve implantation Signature * Event Display: Echocardiogram - Complete Authored Date: Deprecated Cardiac rehabilitation treatment plan Progress note and attainment of goals (narrative) * Mariella Lopes: PERFORM, SIGN, VERIFY Event Display: Cardiac Rehab Note Authored Date: Patient: SAHIL BLAIR Age: 72 years Sex: Male : 1950 Associated Diagnoses: None Author: Mariella Lopes Diagnosis Cardiac Rehab Diagnosis: TAVR. Pre-exercise Vitals Vital Signs: 80 HR. Vital Signs Comment. Pre-exercise Physical Examination Neurologic: alert & oriented. Cardiovascular: heart rate regular. Activity Symptoms with Cardiac Rehab Symptoms: No exertional symptoms. Activity Transfers: independent. Ambulate: with assist, assistive device, distance ambulated 225 feet. Assistive Devices Assistive Device: Wheeled walker. Compliance problems: Compliance problems: exercise. . Post-exercise Vitals Vital Signs: 85 HR, 92% on RA SaO2. Patient Education Education: Patient alone, Post procedure guidelines. Education topic Teachback comprehension 75% Topic: Pathophysiology, Role of exercise, Home activity guidelines/limits, Post operative recovery guidelines, discussed no lifting over 10lbs for 10 days, groin site precautions, home walking reccomendations. Reinforcement needed: Smoking cessation, discussed smoking cessation, pt reported not ready to discuss, not willing to try patch at the time, will see patient at outpatient cardiac rehab where he will meet w our tobacco tx specialist. Recommendation and Plan Ambulate: 3 times/day, with assistive device. Outpatient follow up recommended: [facility], appt given for march 30 at 8am. Cardiac Rehab: Will sign off at this time. Portable XR Chest Views * BHSPowerscribe , BRODIE S: TRANSCRIBE Jeff CARPENTER , Kate Erickson: VERIFY Event Display: Result: Authored Date: [id number] Examination: Portable chest performed on 03/02/2023. History: Status post TAVR. Findings: A frontal view of the chest is compared to a prior study dated 03/01/2023. The cardiac silhouette is within normal limits for size. An aortic valve replacement is present. The lungs are clear. Surgical clips in the right axilla are noted. The osseous structures are intact. IMPRESSION: There is no acute cardiopulmonary disease. WSN: [id number] Ordering Physician: Woo Chamberlain Dictated By: Kate Aguilar MD Dictated Date/Time: 03/02/23 8:34 am Reviewed By: Kate Aguilar MD Signed By: Kate Aguilar MD Signed Date/Time: 03/02/23 8:34 am Transcribed By: MADDI Transcribed Date/Time: 03/02/23 8:33 am * BHSPowerscribe , CIS S: TRANSCRIBE Kristy Corral MD: VERIFY Event Display: Result: Authored Date: [id number] Chest Portable CLINICAL INDICATION: Reason: Postop; S P TAVR; Clinical Question(s): Other:; Cardiac Tamponade; Special Instructions: on admission to unit COMPARISON: Chest x-ray, 09/21/2017. Chest CT, 01/13/2022. FINDINGS: The cardiac silhouette is within normal limits. Patient is status post TAVR. Hilar and mediastinal contours are normal. The lungs are clear. There is no pleural effusion, pneumothorax, or evidence of CHF. No acute osseous abnormality is noted. Right axillary surgical clips noted. IMPRESSION: Status post TAVR. No acute cardiopulmonary process. WSN: [id number] Ordering Physician: Woo Chamberlain Dictated By: Kristy Corral MD Dictated Date/Time: 03/01/23 3:54 pm Reviewed By: Kristy Corral MD Signed By: Kristy Corral MD Signed Date/Time: 03/01/23 3:54 pm Transcribed By: MADDI Transcribed Date/Time: 03/01/23 3:53 pm Patient Care team information Care Team Personnel Name: Efraín Perry NP Position: Reference Physician Member Role: PCP Address: Address: [address] [place] [address]- Name: Lisbet Slater RN Position: S RN Member Role: Primary Care Nurse Name: Yvonne Castro Position: [facility] KAI w/ Drug Purchaser Member Role: Patient Care Provider Name: Kayleigh Chavez RN Position: S RN Member Role: Patient Care Provider Care Team Related Persons Name: JERICA SANABRIA Name: JERICA BLACKWELL Name: STATES, NONE
--- OUTSIDE RECORDS SUMMARY | 2023-10-25 08:06 | XMS_ITS | Continuity of Care Document ---
Author Name Unknown Organization [facility] Address [address] [place] [id number]- Care Team Providers Care Manager Switch Name Role Phone Vicky GASPAR, Efraín Rendon Primary Care Physician Encounter [facility] [place] [id number] Date(s): 04/22/22 - 08/24/[address] [address]- Encounter Diagnosis Low back pain, unspecified(Final) - Discharge Disposition: A-D/C Home Attending Physician: Efraín Perry NP Admitting Physician: Efraín Perry NP Referring Physician: Valeria Perez Allergies, Adverse Reactions, Alerts Substance Reaction Severity [...] Care team information Care Team Personnel Name: Glogowski VAUDEVILLE ACTOR , Vinh Position: Reference Physician Member Role: PCP Address: Address: [address] [place] [address]- Name: Lisbet Slater RN Position: [facility] RN Member Role: Primary Care Nurse Care Team Related Persons Name: JERICA BLACKWELL Name: STATES, NONE
--- OUTSIDE RECORDS SUMMARY | 2023-10-25 08:06 | XMS_ITS | Continuity of Care Document ---
Author Name Unknown Organization [facility] david Address [address] [place] [address]- Care Team Providers Care Road Freight Conductor Name Role Phone Vicky GASPAR, Efraín Rendon Primary Care Physician Encounter [facility] Date(s): 12/09/22 - 01/08/23 [facility] [address] [place] [address] Attending Physician: Gabriele Woodward Admitting Physician: AdmGabriele mazariegos Referring Physician: AdmtrGabriele Allergies, Adverse Reactions, Alerts [...] Reference Physician Member Role: PCP Address: Address: [address] [place] [address] Name: Lisbet Slater RN Position: Geraldo RN Member Role: Primary Care Nurse Care Team Related Persons Name: JERICA SANABRIA Name: JERICA BLACKWELL Name: STATES, NONE
[2023-10-25] MEDS: Lactated Ringers 1,000 ML 100 ML IVCONT ×2 (09:09→15:30)
[2023-10-25] MEDS: Albuterol Sulfate (0.083%) 2.5 MG/3 ML VIAL.NEB INHALE (09:12)
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
[2023-10-25] MEDS: oxyCODONE HCl ER 10 MG TAB.ER.12H PO ×2 (10:25→19:16)
--- NOTE | 2023-10-25 14:26 | P.BOP_ITS ---
Brief Operative Note Date of Service: 10/25/23 Pre-op diagnosis: Right hip degenerative joint disease Post-op diagnosis: same Procedure: Right total hip arthroplasty Implants: [place] press-fit total hip arthroplasty with an Accolade II femoral stem size 6 with a 127 degree neck-shaft angle, a Trident II Tritanium acetabular component with cluster hole size 54, polyethylene liner size 36 with a 10 degree lip, a Biolox ceramic femoral head size 36 with a +0 neck, 2 cancellous bone screws measuring 30 mm in length and 25 mm in length Surgeon: Stan Pham MD Anesthesia: GETA Was an Studio Technician Video Operator used for this Procedure?: No Studio Technician Video Operator: Dawna Weiner Estimated blood loss (mL): 200 Pathology: other (Right femoral head) Condition: stable Disposition: PACU
[2023-10-25] MEDS: fentaNYL citrate/PF 100 MCG/2 ML VIAL 25 MCG IVPUSH ×2 (14:28→14:33)
--- NOTE | 2023-10-25 14:30 | W.PM.OPN ---
Operative Note Operative Note Date of Service: 10/25/23 Narrative: After the patient was identified as Ponce Fitzpatrick and his right hip was initialed by myself the patient was brought to the operating room where general anesthesia via endotracheal tube was induced by the anesthesiologist in routine fashion. The patient was given 2 g of IV Ancef for infection prophylaxis. The patient was then gently rolled into the lateral position. An axillary roll was put into place. All bony prominences were well padded. The patient's pelvis was held securely with hip bolsters. The patient's right hip region and lower extremity were prepped and draped in sterile fashion. A #10 scalpel blade was then used to make a curvilinear incision centered over the greater trochanter. The subcutaneous tissues were dissected using electrocautery down to the fascia duran. The fascia duran was then split in line with the skin incision using electrocautery. The split in the fascia duran was curved posteriorly along its cephalad aspect to help prevent injury to the innervation of the tensor fascia duran muscle. The patient's leg was gently externally rotated. A lateral Pickens approach was then taken down to the anterior joint capsule. The anterior half of the vastus lateralis was split 1 cm from its insertion and tagged with #2 Ethibond suture. The anterior 1/3 of the gluteus medius incision was then split using electrocautery and tagged with #2 Ethibond suture. An anterior capsulectomy was then performed using electrocautery. The patient's femoral head was then dislocated anteriorly using a bone hook and gentle traction. Soft tissues were retracted around the femoral neck. The femoral neck cut was then made using a sagittal saw 1 cm proximal to the lesser trochanter. Our attention was then directed to the acetabulum. The labrum was removed using electrocautery. Soft tissue within the cotyloid notch was removed using electrocautery and a rongeur. The femoral head measured to be a size 48 mm. Thus, reaming was begun with a 48 mm reamer. Reaming was performed at 45 degrees of abduction and 20 degrees of anteversion. Reaming was increased incrementally up to a size 54 reamer. At this point we had reached the medial wall of the acetabulum. The acetabulum was irrigated with copious amounts of normal saline solution via pulse lavage. The final size 54 acetabular component was then impacted into place with 45 degrees of abduction and 20 degrees of anteversion. Two cancellous bone screws were then placed into the superior position. The anterior screw measured 30 mm in length and the posterior screw measured 25 mm in length. The acetabular component was irrigated with copious amounts of normal saline solution via pulse lavage. The polyethylene liner was then impacted into place with the lip in the posterior-superior position. A small sponge was placed into the acetabular component to protect it during preparation of the proximal femur. Our attention was then directed to the proximal femur. A Dall-Miles cable was placed just distal to the lesser trochanter to help prevent periprosthetic fracture. The patient's leg was then placed into a sterile pouch along the anterior aspect of the surgical suite table. Soft tissues were retracted around the proximal femur. A box cutting osteotome was used to make a groove in the medial aspect of the greater trochanter. Broaching was begun with a size 1 broach. Broaching was increased up to a size 6 broach. The size 6 broach fit well. There was both linear and rotational stability. The broach was removed. The intramedullary canal was irrigated with copious amounts of normal saline solution via pulse lavage. The final implant was impacted into place. There was both rotational and linear stability. The Dall-Miles cable was tightened and cut in routine fashion. A trial size 36 head with a +0 mm neck was put into place. The hip was reduced. Leg lengths were clinically equal. The hip was taken through a full range of motion. There was no instability. The hip was once again dislocated and the patient's leg was placed into the sterile pouch. The trial head was removed. The wound was irrigated with copious amounts of normal saline solution via pulse lavage. The final head was impacted in the place. Leg lengths were clinically equal. Hip was taken through a full range of motion. There was no instability. The patient's leg was then placed onto a well-padded Butts stand. The wound was once again irrigated. The vastus lateralis and tensor fascia duran tendons were repaired with #2 Ethibond [id number] interrupted suture. The wound was once again irrigated. The fascia duran was closed with #2 Ethibond [id number] interrupted suture as well as #1 Vicryl [id number] interrupted suture. The wound was once again irrigated. The subcutaneous tissues were closed with 0 Vicryl and 2-0 Vicryl interrupted suture. The skin was closed with skin daja. Dry sterile dressing was placed over the incision. The patient was gently rolled into the supine position. The patient was awoken and extubated in the operating room. The patient was transferred to the recovery room in stable condition.
--- NOTE | 2023-10-25 15:33 | P.CONHOSP_ITS ---
History of Present Illness Data of Consult Service Date: 10/25/23 Requesting physician: Stan Pham Primary Care Provider: Efraín Perry, [facility] HPI Reason for consult: medical management 73 year old male with COPD not on home O2, hypertension, hyperlipidemia, BPH, osteoporosis, severe aortic stenosis s/p TAVR with bioprosthetic valve, coronary artery disease who is a current 1/2 pack per day cigarette smoker admitted to Orthopedic surgery with consult placed to hospitalist service for medical management. He is reporting pain in the right hip. He also has an ongoing dry cough. Was diagnosed with RSV 3 weeks ago. He is afebrile denies any shortness a breath or chest pain. Denies any etoh use or illicit drug use. Review of Systems Review of Systems: General: No fevers, malaise, unintentional weight loss HEENT: No blurred vision, diplopia. No sore throat, nasal congestion, r hinorrhea, sinus pain, ear pain Cardiovascular: No chest pain, palpitations, or leg edema Respiratory: No shortness of breath, wheezing, cough GI: No abdominal pain, nausea, vomiting, diarrhea, constipation, melena, hematochezia : No dysuria, hematuria, increased urinary frequency, decreased urinary output MSK: No myalgia, back pain. +hip pain Neuro: No headaches, weakness, paresthesias Skin: No rashes or lesions [facility] Medical History Arthritis Enlarged prostate Cough Elevated cholesterol HTN (hypertension) Right shoulder pain Non-rheumatic aortic stenosis Severe aortic stenosis Diverticulosis Umbilical hernia Deformity of left hand Systolic murmur Smoker COPD (chronic obstructive pulmonary disease) Skin cancer Rectus diastasis Family History Father Unknown family medical history Mother No problems noted. Surgical History Hx of hand surgery H/O colonoscopy Status post transcatheter aortic valve replacement (TAVR) using bioprosthesis Aortic valve replaced S/P cardiac catheterization History of left hip replacement Social History Housing: House Are you a primary assisted living care manager to a significant other at home: No Do you presently have visiting nurse or other home services: No Alcohol intake: never Patient Tobacco Use Status: Current everyday Tobacco user Tobacco use type: Cigarette Cigarettes Per Day: 10 Years Smoked: 55 e-Cigarette/Vaping Use: Never Used Second Hand Smoke Exposure: No Current occupational status: employed Cognitive needs: No Hearing needs: No Vision needs: Yes Meds Allergies Allergy/AdvReac Type Severity Reaction Status Date / Time formaldehyde [FORMALDEHYDE] Allergy Unknown HIVES Verified 10/25/23 08:15 lanolin Allergy Hives Verified 10/25/23 08:15 propylene glycol Allergy Rash Verified 10/25/23 08:15 a steroid cream; he is not Allergy Unknown Unknown Uncoded 10/25/23 08:15 [address] [employer] Allergy Unknown Unknown Uncoded 10/12/23 15:23 Active Medications: Current Medications Acetaminophen (Acetaminophen 325 Mg Tablet) 650 mg PO Q6H PRN PRN Reason: Pain, Mild (Pain Scale 1-3) Amlodipine Besylate (Amlodipine Besylate 5 Mg Tablet) 5 mg PO BID [facility]; Protocol Atorvastatin Calcium (Atorvastatin Calcium 40 Mg Tablet) 40 mg PO BEDTIME [facility]ODRIGUEZ Celecoxib (Celecoxib 200 Mg Capsule) 200 mg PO BID [facility] Docusate Sodium (Docusate Sodium 100 Mg Capsule) 100 mg PO BID [facility] Enoxaparin Sodium (Enoxaparin Sodium 40 Mg/0.4 Ml Syringe) 40 mg SUBCUT Q24H [facility] Fentanyl (Fentanyl Citrate/Pf 100 Mcg/2 Ml Vial) 25 mcg IVPUSH Q5M PRN; Protocol PRN Reason: Pain, Moderate(Pain Scale 4-6) Last Admin: 10/25/23 14:33 Dose: 25 mcg Finasteride (Finasteride 5 Mg Tablet) 5 mg PO BEDTIME [facility] Gabapentin (Gabapentin 300 Mg Capsule) 300 mg PO TID [facility] Hydromorphone HCl (Hydromorphone Hcl 0.5 Mg/0.5 Ml Syringe) 0.25 mg IVPUSH Q5M PRN; Protocol PRN Reason: Pain, Severe (Pain Scale 7-10) Hydromorphone HCl (Hydromorphone Hcl 0.5 Mg/0.5 Ml Syringe) 0.25 mg IVPUSH Q4H PRN; Protocol PRN Reason: Pain, Severe (Pain Scale 7-10) Hydromorphone HCl (Hydromorphone Hcl 0.5 Mg/0.5 Ml Syringe) 0.5 mg IVPUSH Q4H PRN; Protocol PRN Reason: Pain, Severe (Pain Scale 7-10) Lactated Ringer's (Lr) 1,000 mls @ 100 mls/hr IVCONT .Q10H [facility] Last Admin: 10/25/23 15:30 Dose: 100 mls/hr Cefazolin Sodium/Dextrose (Ancef) 2 gm in 50 mls @ 100 mls/hr IV Q8H [facility] Stop: 10/26/23 00:01 Losartan Potassium (Losartan Potassium 50 Mg Tablet) 100 mg PO BEDTIME [facility]; Protocol Methocarbamol (Methocarbamol 500 Mg Tablet) 500 mg PO TID [facility] Non-Formulary Medication (Cholecalciferol (Vitamin D3)) 125 mcg PO DAILY [facility] Nystatin (Nystatin Powder 15 Gm Bottle) 1 appl TOPICAL DAILY [facility]; Protocol Ondansetron HCl (Ondansetron Hcl 4 Mg/2 Ml Vial) 4 mg IVPUSH ONCE PRN PRN Reason: Nausea and Vomiting Ondansetron HCl (Ondansetron Hcl 4 Mg/2 Ml Vial) 4 mg IVPUSH Q8H PRN PRN Reason: Nausea and Vomiting Oxycodone HCl (Oxycodone Hcl Immed Release 5 Mg Tablet) 5 mg PO Q4H PRN PRN Reason: Pain, Moderate(Pain Scale 4-6) Oxycodone HCl (Oxycodone Hcl Er 10 Mg Tab.Er.12h) 10 mg PO BID [facility] Oxycodone HCl (Oxycodone Hcl Immed Release 5 Mg Tablet) 10 mg PO Q4H PRN PRN Reason: Pain, Moderate(Pain Scale 4-6) Sodium Chloride (0.9 % Sodium Chloride Flush 3 Ml Syringe) 3 ml IVFLUSH QSHIFT [facility] Tamsulosin HCl (Tamsulosin Hcl 0.4 Mg Capsule) 0.4 mg PO BEDTIME [facility] Home Medications Medication Instructions Recorded Confirmed Last Taken Type finasteride 5 mg tablet 5 mg PO BEDTIME 08/08/20 10/20/23 Unknown History cholecalciferol (vitamin D3) 125 125 mcg PO DAILY 07/29/22 10/20/23 Unknown History mcg (5,000 unit) capsule tamsulosin 0.4 mg capsule 0.4 mg PO BEDTIME 07/29/22 10/20/23 Unknown History acetaminophen 500 mg tablet 500 mg PO BID PRN Pain 10/20/23 10/20/23 Unknown History amlodipine 5 mg tablet 5 mg PO BID 10/20/23 10/20/23 Unknown History losartan 100 mg tablet 100 mg PO BEDTIME 10/20/23 10/20/23 Unknown History Physical Exam Vital Signs and Narrative: Vital Signs: Last Vital Signs Temp 97.2 F 10/25/23 15:20 Pulse 64 10/25/23 15:20 Resp 18 10/25/23 15:20 BP 158/70 H 10/25/23 15:20 Pulse Ox 94 10/25/23 15:20 O2 Del Method Nasal Cannula 10/25/23 15:20 O2 Flow Rate 2 10/25/23 15:20 BMI result Body Mass Index 30.6 Constitutional - Awake and Alert, No apparent distress Eyes - PERRLA, EOMI Cardiovascular - S1S2, RRR, No edema Respiratory - Normal lung expansion, Normal respiratory effort, No respiratory distress on1 L O2, bilateral rhonchi Gastrointestinal - NT / ND; +BS; No rebound or guarding Extremities - no calf tenderness bilaterally, no swelling Skin - Warm/Dry Neurological - Alert & oriented x3 Psychological - Appropriate affect Results Imaging Radiologist's Impressions: Impressions Pelvis X-Ray 10/25/23 15:00 IMPRESSION: Total bilateral hip prosthesis with prosthetic components in satisfactory alignment. Assessment and Plan (1) Osteoarthritis of right hip: Status: Acute Plan 73 year old male with COPD not on home O2, hypertension, hyperlipidemia, BPH, osteoporosis, severe aortic stenosis s/p TAVR with bioprosthetic valve, coronary artery disease who is a current 1/2 pack per day cigarette smoker admitted to Orthopedic surgery with consult placed to hospitalist service for medical management. #OA right hip s/p JOYCE POD0 -with post-op hypoxia- wean O2 as tolerated -plan per ortho surgery #Cough/rhonchi -recent RSV infection -Check CXR to evaluate for pneumonia -symptomatic management #HTN -bp reasonably controlled -resume home antihypertensives am #CAD/HLD -resume asa per ortho surgery -Cotninue statin #BPH -continue finasteride #COPD -no acute exacerbation -albuterol prn Thank you for this consult. Will continue following along with you. Please do not hesitate to reach out with any questions or concerns.
[2023-10-25] MEDS: ceFAZolin Sodium/Dextrose,Iso 2 GM/50 ML PIGGYBACK IV ×2 (15:47→22:45)
[2023-10-25] MEDS: oxyCODONE HCl Immed Release 5 MG TABLET 10 MG PO ×3 (15:54→22:44)
[2023-10-25] MEDS: methocarbamoL 500 MG TABLET PO ×2 (15:54→19:16)
[2023-10-25 17:00] LABS: Creatinine Clr Calc Pharmacy 59.5; Estimated Glomerular Filt Rate 56
[2023-10-25] MEDS: Enoxaparin Sodium 40 MG/0.4 ML SYRINGE SUBCUT (17:37)
[2023-10-25] MEDS: Gabapentin 300 MG CAPSULE PO ×2 (18:08→19:16)
[2023-10-25] MEDS: Docusate Sodium 100 MG CAPSULE PO (19:15)
[2023-10-25] MEDS: Celecoxib 200 MG CAPSULE PO (19:16)
--- NOTE | 2023-10-25 19:25 | PHA.MEDREC ---
Pharmacy Consult ? Medication Reconciliation Pharmacy has reviewed the medication reconciliation completed by nursing. Patient did confirm he takes amldopidine BID instead of 2 tablets in the AM. Danyell Alanis, [facility]
[2023-10-25] MEDS: Atorvastatin Calcium 40 MG TABLET PO (20:01)
[2023-10-25] MEDS: Losartan Potassium 50 MG TABLET 100 MG PO (20:01)
[2023-10-25] MEDS: amLODIPine Besylate 5 MG TABLET PO (20:01)
[2023-10-25] MEDS: Finasteride 5 MG TABLET PO (20:01)
[2023-10-25] MEDS: Tamsulosin HCL 0.4 MG CAPSULE PO (20:01)
[2023-10-26] VITALS (8 sets, daily range): BP systolic 132–152; BP diastolic 56–65; PULSE 64–81; RESP 14–20; TEMP 36.2–37.5; O2SAT 90–94
[2023-10-26] MEDS: HYDROmorphone HCl 0.5 MG/0.5 ML SYRINGE 0.25 MG IVPUSH (00:51)
[2023-10-26] MEDS: Lactated Ringers 1,000 ML 100 ML IVCONT (00:53)
[2023-10-26] MEDS: oxyCODONE HCl Immed Release 5 MG TABLET 10 MG PO ×3 (03:58→20:37)
[2023-10-26 07:47] LABS: Anion Gap 11 (12-20); Blood Urea Nitrogen 24 mg/dL (9-16); Calcium 9.1 mg/dL (8.4-10.2); Carbon Dioxide 26 mmol/L (22-29); Chloride 106 mmol/L (96-108); Estimated Glomerular Filt Rate 52; Glucose Fasting 135 mg/dL (60-99); Potassium 4.3 mmol/L (3.3-5.1); Sodium 139 mmol/L (135-145)
[2023-10-26 07:50] LABS: Basophils Percent Auto 0.1 % (0-2); Hematocrit 32.8 % (42.0-52.0); Hemoglobin 10.5 g/dl (14.0-18.0); Imm Gran Abs Auto 0.06 X10*3/uL (0.00-0.03); Imm Gran Pct Auto 0.4 % (0.0-0.4); Lymphocytes Absolute Auto 1.1 X10*3/uL (1.2-4.9); Lymphocytes Percent Auto 7.8 % (20-40); MANUAL DIFF FLAG SCAN; Mean Corpuscular Hemoglobin 28.5 pg (27.0-33.0); Mean Corpuscular Volume 89.1 fL (80.0-98.0); Mean Platelet Volume 11.5 fL (9.4-12.4); Monocytes Absolute Auto 1.8 X10*3/uL (0.1-1.2); Monocytes Percent Auto 12.8 % (2-11); Neutrophils Absolute Auto 11.2 x10*3/uL (2.0-8.3); Neutrophils Percent Auto 78.9 % (45-73); Platelet Count 148 X10*3/uL (160-400); Red Blood Count 3.68 X10*6/uL (4.60-5.80); Red Cell Distribution Width 13.6 % (11.0-16.0); SCAN SMEAR FLAG 1; White Blood Count 14.2 X10*3/uL (4.8-10.8)
--- NOTE | 2023-10-26 07:53 | PM.PNORT ---
Subjective Subjective Date of Service: 10/26/23 Principal diagnosis: right total hip replacement Interval history: Mr. Fitzpatrick is seen resting comfortably in bed this morning with complaints of mild to moderate right hip pain. He denies any fevers or chills, shortness of breath or chest pain. Patient states that he was able to stand with assistance yesterday. He is due to get more physical therapy this morning. Physical Exam Vital Signs: Vital Signs: Last Vital Signs Temp 98.3 F 10/26/23 07:18 Pulse 72 10/26/23 07:18 Resp 16 10/26/23 07:18 BP 132/56 L 10/26/23 07:18 Pulse Ox 94 10/26/23 07:18 O2 Del Method Room Air 10/26/23 07:18 O2 Flow Rate 2 10/25/23 15:20 BMI result Body Mass Index 30.6 Extrem: Other: Right lower extremity examination shows that the dressing is clean, dry and intact, EHL/sens nl Procedures Date of Service Date of Service: 10/26/23 Progress Note: A&P Assessment and plan (1) Osteoarthritis of right hip: Status: Acute Plan Mr. Fitzpatrick is doing well after undergoing right total hip replacement surgery yesterday. Continue to mobilize as tolerated. Continue aspirin BID for deep vein thrombosis prophylaxis. creative services producer for home physical therapy and nursing over the next few days. The patient is stable at present. Quality Stroke Does the patient have a stroke diagnosis?: No VTE Prior VTE?: No VTE Risk Level:: Surgical - low VTE Device Contraindication: Treatment Not Indicated VTE Drug Contraindication: N/A - Med Ordered
[2023-10-26 08:07] LABS: SLIDE REVIEW VERIFIED
[2023-10-26] MEDS: methocarbamoL 500 MG TABLET PO ×3 (08:14→20:36)
[2023-10-26] MEDS: amLODIPine Besylate 5 MG TABLET PO ×2 (08:14→20:40)
[2023-10-26] MEDS: Celecoxib 200 MG CAPSULE PO ×2 (08:14→20:39)
[2023-10-26] MEDS: Docusate Sodium 100 MG CAPSULE PO ×2 (08:14→20:39)
[2023-10-26] MEDS: Cholecalciferol (Vitamin D3) 25 MCG TABLET 125 MCG PO (08:15)
[2023-10-26] MEDS: Gabapentin 300 MG CAPSULE PO ×3 (08:15→20:39)
[2023-10-26] MEDS: oxyCODONE HCl ER 10 MG TAB.ER.12H PO ×2 (08:15→20:40)
[2023-10-26] MEDS: Acetaminophen 325 MG TABLET 650 MG PO ×2 (08:15→14:51)
--- NOTE | 2023-10-26 10:01 | P.DS_ITS ---
DS: Providers Provider Date of Service: 10/28/23 Date of admission: 10/25/23 08:02 Primary care physician: MOON Rowland Consults: 10/25/23 15:15 Consult to Hospitalist Routine Comment: Consulting Provider: Hospitalist Reason For Exam: routine medical management DS: Diagnosis Discharge Diagnosis (1) Osteoarthritis of right hip: Status: Inactive DS: Summary Hospital Course Hospital Course: The patient underwent a successful right total hip arthroplasty, they were transferred to PACU and then to the floor to recover. During their stay, their vitals were stable, afebrile at 99.7. Labs were unremarkable, H/H 9.6/30.5. POD 1 they were started on Lovenox for DVT ppx, they also received Physical Therapy services twice a day. Prior to discharge, their dressing was clean dry and int act, and the plan was to be discharged to short term rehab. Time Attestation Discharge coordination time: Less than 30 minutes Quality: Safe Use of Opioids Does Pt have an Active Cancer Diagnosis on the Problem List?: No Quality: Stroke Does the patient have a stroke diagnosis?: No Physical Exam Vital Signs: Vital Signs: Last Vital Signs Temp 98.3 F 10/26/23 07:18 Pulse 72 10/26/23 07:18 Resp 16 10/26/23 07:18 BP 132/56 L 10/26/23 07:18 Pulse Ox 94 10/26/23 08:32 O2 Del Method Room Air 10/26/23 08:32 O2 Flow Rate 2 10/25/23 15:20 BMI result Body Mass Index 30.6 Extrem: Other: Right hip dressing is c/d/i. Able to dorsi/plantar flex. Calf is supple and nontender. Sensation intact. Pedal pulse intact. DS: Data Data Completed and Pending Pending studies at discharge: Pending at discharge 10/25/23 12:06 Surgical [PTH] Routine Labs on day of discharge: Laboratory Results - last 24 hr 10/25/23 10/26/23 16:40 05:48 WBC 14.2 H RBC 3.68 L D Hgb 10.5 L D Hct 32.8 L D MCV 89.1 MCH 28.5 MCHC 32.0 RDW 13.6 Plt Count 148 L MPV 11.5 Immature Gran % (Auto) 0.4 Neut % (Auto) 78.9 H Lymph % (Auto) 7.8 L [place] % (Auto) 12.8 H Eos % (Auto) 0.0 Baso % (Auto) 0.1 Lymph # (Auto) 1.1 L [place] # (Auto) 1.8 H Eos # (Auto) 0.0 Baso # (Auto) 0.0 Abs Immat Gran (auto) 0.06 H Absolute Neuts (auto) 11.2 H Absolute Nucleated RBC 0.000 Nucleated RBC % (auto) 0.0 Smear Tech's Comments VERIFIED Hold Purple Top SEE NOTE Sodium 139 Potassium 4.3 Chloride 106 Carbon Dioxide 26 Anion Gap 11 L BUN 24 H Creatinine 1.27 1.35 Estim Creat Clear Calc 59.5 56.0 Estimated GFR 56 52 Fasting Glucose 135 H Calcium 9.1 Hold Yellow Top See Note Discharge Plan Discharge Anticipated Discharge Date/Time: 10/27/23 13:58 Patient Disposition: Xfer SNF Discharge Diagnosis: s/p RTHA Referrals: Efraín Perry, [employer] [Primary Care Provider] - 1 Week Discharge Medications: New methocarbamol 500 mg Tablet 500 mg PO TID 7 Days Qty: 21 0RF enoxaparin 40 mg/0.4 mL Syringe 40 mg subcut Q24H 42 Days Qty: 16.8 0RF acetaminophen 325 mg Tablet 650 mg PO Q6H PRN (Reason: Pain, Mild (Pain Scale 1-3)) 30 Days Qty: 240 0RF celecoxib 200 mg Capsule 200 mg PO BID 30 Days Qty: 60 0RF docusate sodium 100 mg Capsule 100 mg PO BID 30 Days Qty: 60 0RF oxycodone 5 mg Tablet 5 mg PO Q4H PRN (Reason: Pain, Moderate(Pain Scale 4-6)) 7 Days Qty: 42 0RF Rx Instructions: Partial Fill upon patient request. Continued gabapentin 300 mg capsule 300 mg PO TID 30 Days Qty: 90 3RF nystatin 100,000 unit/gram powder 1 appl topical DAILY Qty: 30 1RF (DME) walker Misc See Rx Instructions .ROUTE .MEDSUPPLY Qty: 1 0RF Rx Instructions: Folding front wheeled walker (DME) Raised toliet seat See Rx Instructions .ROUTE .MEDSUPPLY Qty: 1 0RF Rx Instructions: As directed ([facility] [place]) bedside commode See Rx Instructions .ROUTE .MEDSUPPLY Qty: 1 0RF Rx Instructions: As directed amlodipine 5 mg tablet 5 mg PO BID losartan 100 mg tablet 100 mg PO BEDTIME acetaminophen 500 mg Tablet 650 mg PO BID finasteride 5 mg tablet 5 mg PO BEDTIME tamsulosin 0.4 mg capsule 0.4 mg PO BEDTIME cholecalciferol (vitamin D3) 125 mcg (5,000 unit) capsule 125 mcg PO DAILY atorvastatin 40 mg tablet 40 mg PO BEDTIME 90 Days Qty: 90 3RF Held aspirin 81 mg tablet,delayed release (DR/EC) 81 mg PO DAILY Qty: 90 3RF Hold Instructions: Resume on 12/10/23. Discharge Orders: Discharge Order (Routine); Ordered 10/28/23 Ordered By: Dawna Weiner Diet: Advance to usual diet Activity on Discharge: Use cane or walker Stand Alone Forms: Patient Portal Discharge page Care Plan Goals: restore fxn to right hip Health Concerns: None Plan of Treatment: Physical Therapy for total hip arthroplasty: no precautions, gait training, ROM, strength Limit stair climbing No showering, no tub bath-keep dressing clean, dry and intact No driving x6 weeks Continue Lovenox injections once a day x 6 weeks Follow up with [facility] in 2 weeks Assessment: Stable for d/c
--- NOTE | 2023-10-26 10:02 | W.MHC.F2F ---
Service Date Service Date: 10/26/23 Encounter Date of encounter: 10/28/23 Reasons for Services Signs and symptoms assessed: s/p RTHA. Pt. is considered homebound due to recent surgery. Unable to drive, poor balance, poor gait mechanics. Reason for physical therapy: home safety and mobility, therapeutic exercises, restore joint function, gait/transfer training, assess need for DME and ADL training Reason for occupational therapy: home safety and mobility, therapeutic exercises, restore joint function, gait/transfer training, assess need for DME and ADL training Homebound: Leaving the home is medically contraindicated at this time without the asist of a device and/or another person due th the listed conditions above and below. Reason homebound: unsteady gait / fall risk, leg weakness, pain with ambulation, pain with transfers, poor balance / fall risk and unable to drive Certification: Based on the above findings, I certify that this patient is confined to the home and needs intermittent correction care, physical therapy and/or speech therapy, or continues to need occupational therapy. The patient is under my care, and I have initiated the establishment of the plan of care. The patient will be followed by a physician who will periodically review the plan of care. Time Spent With Patient Time: Total time managing care of this patient today ____ minutes.
[2023-10-26] MEDS: guaiFENesin 200 MG/10 ML 10 ML LIQUID PO ×2 (10:57→15:00)
[2023-10-26] MEDS: Throat Lozenge, Medicated LOZENGE 1 LOZENGE MUCOUS MEM ×2 (10:57→15:00)
--- NOTE | 2023-10-26 11:30 | HO.PM.IMPN ---
Subjective Subjective Date of Service: 10/26/23 Interval History: Complaining of dry mouth and dry cough, also complaining of right hip pain, denies fever, no chills no headache, tolerating diet, no nausea, no vomiting, no abdominal pain, no other acute issues overnight. Review of Systems All other system reviewed and negative. Physical Exam Vital Signs: Vital Signs: Last Vital Signs Temp 98.3 F 10/26/23 07:18 Pulse 72 10/26/23 07:18 Resp 16 10/26/23 07:18 BP 132/56 L 10/26/23 07:18 Pulse Ox 94 10/26/23 08:32 O2 Del Method Room Air 10/26/23 08:32 O2 Flow Rate 2 10/25/23 15:20 BMI result Body Mass Index 30.6 Const: Other: General alert oriented x3, resting comfortably in no acute distress. Neck supple no JVD. CVS regular rate rhythm, Respiratory lungs clear to auscultation, diminished, no respiratory distress, no wheeze, no rhonchi. Gastrointestinal abdomen soft, non tender, bowel sounds audible, Extremities no edema. Right hip dressing in place Neuro nonfocal Skin no rash Psych appropriate affect Objective Data Active Medications Acetaminophen (Acetaminophen 325 Mg Tablet) 650 mg PO Q6H PRN PRN Reason: Pain, Mild (Pain Scale 1-3) Last Admin: 10/26/23 08:15 Dose: 650 mg Documented By: COTEMA Amlodipine Besylate (Amlodipine Besylate 5 Mg Tablet) 5 mg PO BID [facility]; Protocol Last Admin: 10/26/23 08:14 Dose: 5 mg Documented By: COTEMA Atorvastatin Calcium (Atorvastatin Calcium 40 Mg Tablet) 40 mg PO BEDTIME [facility] Last Admin: 10/25/23 20:01 Dose: 40 mg Documented By: VENLA Benzocaine (Throat Lozenge, Medicated Lozenge) 1 lozenge MUCOUS MEM Q2H PRN PRN Reason: Sore Throat Last Admin: 10/26/23 10:57 Dose: 1 lozenge Documented By: MELLY.COTEMA Celecoxib (Celecoxib 200 Mg Capsule) 200 mg PO BID [facility] Last Admin: 10/26/23 08:14 Dose: 200 mg Documented By: COTEMA Docusate Sodium (Docusate Sodium 100 Mg Capsule) 100 mg PO BID [facility] Last Admin: 10/26/23 08:14 Dose: 100 mg Documented By: MOHSEN Enoxaparin Sodium (Enoxaparin Sodium 40 Mg/0.4 Ml Syringe) 40 mg SUBCUT Q24H [facility] Last Admin: 10/25/23 17:37 Dose: 40 mg Documented By: JESSIKA Fentanyl (Fentanyl Citrate/Pf 100 Mcg/2 Ml Vial) 25 mcg IVPUSH Q5M PRN; Protocol PRN Reason: Pain, Moderate(Pain Scale 4-6) Last Admin: 10/25/23 14:33 Dose: 25 mcg Documented By: FERNIE Finasteride (Finasteride 5 Mg Tablet) 5 mg PO BEDTIME [facility] Last Admin: 10/25/23 20:01 Dose: 5 mg Documented By: BORIS Gabapentin (Gabapentin 300 Mg Capsule) 300 mg PO TID [facility] Last Admin: 10/26/23 08:15 Dose: 300 mg Documented By: MOHSEN Guaifenesin (Guaifenesin 200 Mg/10 Ml 10 Ml Liquid) 10 ml PO Q4H PRN PRN Reason: Cough Last Admin: 10/26/23 10:57 Dose: 10 ml Documented By: MOHSEN Hydromorphone HCl (Hydromorphone Hcl 0.5 Mg/0.5 Ml Syringe) 0.25 mg IVPUSH Q5M PRN; Protocol PRN Reason: Pain, Severe (Pain Scale 7-10) Hydromorphone HCl (Hydromorphone Hcl 0.5 Mg/0.5 Ml Syringe) 0.25 mg IVPUSH Q4H PRN; Protocol PRN Reason: Pain, Severe (Pain Scale 7-10) Last Admin: 10/26/23 00:51 Dose: 0.25 mg Documented By: ROSANA Hydromorphone HCl (Hydromorphone Hcl 0.5 Mg/0.5 Ml Syringe) 0.5 mg IVPUSH Q4H PRN; Protocol PRN Reason: Pain, Severe (Pain Scale 7-10) Losartan Potassium (Losartan Potassium 50 Mg Tablet) 100 mg PO BEDTIME [facility]; Protocol Last Admin: 10/25/23 20:01 Dose: 100 mg Documented By: BORIS Methocarbamol (Methocarbamol 500 Mg Tablet) 500 mg PO TID [facility] Last Admin: 10/26/23 08:14 Dose: 500 mg Documented By: MOHSEN Nicotine Polacrilex (Nicotine Polacrilex Lozenge 2 Mg Lozenge) 2 mg BUCCAL Q2H PRN PRN Reason: Nicotine Cravings Nystatin (Nystatin Powder 15 Gm Bottle) 1 appl TOPICAL DAILY [facility]; Protocol Last Admin: 10/26/23 08:17 Dose: Not Given Documented By: COTEMA Non-Admin Reason: Patient Refused Ondansetron HCl (Ondansetron Hcl 4 Mg/2 Ml Vial) 4 mg IVPUSH ONCE PRN PRN Reason: Nausea and Vomiting Ondansetron HCl (Ondansetron Hcl 4 Mg/2 Ml Vial) 4 mg IVPUSH Q8H PRN PRN Reason: Nausea and Vomiting Oxycodone HCl (Oxycodone Hcl Immed Release 5 Mg Tablet) 5 mg PO Q4H PRN PRN Reason: Pain, Moderate(Pain Scale 4-6) Oxycodone HCl (Oxycodone Hcl Er 10 Mg Tab.Er.12h) 10 mg PO BID [facility] Last Admin: 10/26/23 08:15 Dose: 10 mg Documented By: MOHSEN Oxycodone HCl (Oxycodone Hcl Immed Release 5 Mg Tablet) 10 mg PO Q4H PRN PRN Reason: Pain, Moderate(Pain Scale 4-6) Last Admin: 10/26/23 08:15 Dose: 10 mg Documented By: MOHSEN Sodium Chloride (0.9 % Sodium Chloride Flush 3 Ml Syringe) 3 ml IVFLUSH QSHIFT [facility] Last Admin: 10/26/23 07:20 Dose: Not Given Documented By: COTEMA Non-Admin Reason: IV Running Tamsulosin HCl (Tamsulosin Hcl 0.4 Mg Capsule) 0.4 mg PO BEDTIME [facility] Last Admin: 10/25/23 20:01 Dose: 0.4 mg Documented By: VENLA Vitamin D (Cholecalciferol (Vitamin D3) 25 Mcg Tablet) 125 mcg PO DAILY [facility] Last Admin: 10/26/23 08:15 Dose: 125 mcg Documented By: MOHSEN Labs 10/26/23 05:48 10/26/23 05:48 Labs: Laboratory Results - last 24 hr 10/25/23 10/26/23 16:40 05:48 MCV 89.1 MCH 28.5 MCHC 32.0 RDW 13.6 Plt Count 148 L MPV 11.5 Immature Gran % (Auto) 0.4 Neut % (Auto) 78.9 H Lymph % (Auto) 7.8 L [place] % (Auto) 12.8 H Eos % (Auto) 0.0 Baso % (Auto) 0.1 Lymph # (Auto) 1.1 L [place] # (Auto) 1.8 H Eos # (Auto) 0.0 Baso # (Auto) 0.0 Abs Immat Gran (auto) 0.06 H Absolute Neuts (auto) 11.2 H Absolute Nucleated RBC 0.000 Nucleated RBC % (auto) 0.0 Smear Tech's Comments VERIFIED Hold Purple Top SEE NOTE Anion Gap 11 L Estim Creat Clear Calc 59.5 56.0 Estimated GFR 56 52 Fasting Glucose 135 H Calcium 9.1 Hold Yellow Top See Note Assessment and Plan (1) Osteoarthritis of right hip: Status: Acute Plan 73 year old male with COPD not on home O2, hypertension, hyperlipidemia, BPH, osteoporosis, severe aortic stenosis s/p TAVR with bioprosthetic valve, coronary artery disease who is a current 1/2 pack per day cigarette smoker admitted to Orthopedic surgery with consult placed to hospitalist service for medical management. #OA right hip s/p JOYCE POD 1 -hypoxia resolved stable oxygenation on room air -further treatment plan per ortho surgery #Cough/rhonchi -recent RSV infection -chest x-ray showed atelectasis and bronchial wall thickening, no infiltrate, -will place on throat lozenges for dry mouth and cough medication Strongly recommend to abstain from smoking #HTN -bp reasonably controlled -resume home antihypertensives am #CAD/HLD -continue statin, resume asa per ortho surgery #BPH -continue finasteride #COPD -no acute exacerbation -albuterol prn Will sign off, please do not hesitate to call with any new medical issues or concerns. Quality Stroke Does the patient have a stroke diagnosis?: No VTE Prior VTE?: No VTE Risk Level:: Surgical - low VTE Device Contraindication: Treatment Not Indicated VTE Drug Contraindication: N/A - Med Ordered
--- NOTE | 2023-10-26 11:51 | MHC.CM.PN ---
IMM delivered. Patient is from home alone. Ambulates w/ a cane PRN. Independent w/ ADL's. PCP: Efraín Perry NP HCP: friend Kati Linn Has been to [facility] after last hip surgery. Has also used a VNA in the past, but cannot recall name of agency. DP: PT is recommending STR. Patient is agreeable. Choices are 1) [facility] 2) any other facility in [facility]. Referrals placed. Will need BLS. CM will continue to follow for dc needs.
--- NOTE | 2023-10-26 12:02 | HO.POSTANES ---
Post Anesthesia Evaluation Post Anesthesia Evaluation Date of Service: 10/26/23 Vital Signs: Vital Signs Temp Pulse Resp BP Pulse Ox O2 Del Method 10/26/23 08:32 94 Room Air 10/26/23 07:18 98.3 F 72 16 132/56 L 94 Room Air 10/26/23 03:42 99.5 F 81 20 152/65 H 92 Room Air Anesthesia: General Mental Status: Awake Pain Control: Satisfactory Nausea/Vomiting: None Hydration: Adequate Anesthesia-Related Issues: No Anes. Related Issues
[2023-10-26] MEDS: oxyCODONE HCl Immed Release 5 MG TABLET PO (14:50)
[2023-10-26] MEDS: 0.9 % Sodium Chloride Flush 3 ML SYRINGE IVFLUSH ×2 (15:02→20:41)
[2023-10-26] MEDS: Enoxaparin Sodium 40 MG/0.4 ML SYRINGE SUBCUT (16:50)
[2023-10-26] MEDS: Tamsulosin HCL 0.4 MG CAPSULE PO (20:39)
[2023-10-26] MEDS: Atorvastatin Calcium 40 MG TABLET PO (20:40)
[2023-10-26] MEDS: Losartan Potassium 50 MG TABLET 100 MG PO (20:40)
[2023-10-26] MEDS: Finasteride 5 MG TABLET PO (20:40)
[2023-10-26] MEDS: HYDROmorphone HCl 0.5 MG/0.5 ML SYRINGE IVPUSH (22:41)
[2023-10-27] VITALS (7 sets, daily range): BP systolic 128–148; BP diastolic 58–65; PULSE 69–81; RESP 16–18; TEMP 36.6–37.6; O2SAT 89–94
[2023-10-27 06:50] LABS: Basophils Percent Auto 0.4 % (0-2); Eosinophils Absolute Auto 0.2 X10*3/uL (0.0-0.4); Eosinophils Percent Auto 1.6 % (0-4); Hematocrit 32.4 % (42.0-52.0); Hemoglobin 10.1 g/dl (14.0-18.0); Imm Gran Abs Auto 0.03 X10*3/uL (0.00-0.03); Imm Gran Pct Auto 0.3 % (0.0-0.4); Lymphocytes Absolute Auto 1.8 X10*3/uL (1.2-4.9); Lymphocytes Percent Auto 17.1 % (20-40); MANUAL DIFF FLAG SCAN; Mean Corpuscular HGB Conc 31.2 g/dl (31.0-36.0); Mean Corpuscular Hemoglobin 28.2 pg (27.0-33.0); Mean Corpuscular Volume 90.5 fL (80.0-98.0); Mean Platelet Volume 11.1 fL (9.4-12.4); Monocytes Absolute Auto 1.5 X10*3/uL (0.1-1.2); Monocytes Percent Auto 14.7 % (2-11); Neutrophils Absolute Auto 6.8 x10*3/uL (2.0-8.3); Neutrophils Percent Auto 65.9 % (45-73); Platelet Count 124 X10*3/uL (160-400); Red Blood Count 3.58 X10*6/uL (4.60-5.80); Red Cell Distribution Width 13.6 % (11.0-16.0); SCAN SMEAR FLAG 1; White Blood Count 10.3 X10*3/uL (4.8-10.8)
[2023-10-27 06:53] LABS: Anion Gap 10 (12-20); Blood Urea Nitrogen 25 mg/dL (9-16); Calcium 9.2 mg/dL (8.4-10.2); Carbon Dioxide 30 mmol/L (22-29); Chloride 104 mmol/L (96-108); Creatinine Clr Calc Pharmacy 55.5; Estimated Glomerular Filt Rate 52; Glucose Fasting 98 mg/dL (60-99); Sodium 140 mmol/L (135-145)
[2023-10-27] MEDS: 0.9 % Sodium Chloride Flush 3 ML SYRINGE IVFLUSH ×3 (07:57→19:48)
[2023-10-27] MEDS: Gabapentin 300 MG CAPSULE PO ×3 (08:00→19:46)
[2023-10-27] MEDS: Cholecalciferol (Vitamin D3) 25 MCG TABLET 125 MCG PO (08:00)
[2023-10-27] MEDS: oxyCODONE HCl ER 10 MG TAB.ER.12H PO ×2 (08:00→19:47)
[2023-10-27] MEDS: methocarbamoL 500 MG TABLET PO ×3 (08:00→19:46)
[2023-10-27] MEDS: Celecoxib 200 MG CAPSULE PO ×2 (08:00→19:47)
[2023-10-27] MEDS: Docusate Sodium 100 MG CAPSULE PO ×2 (08:00→19:47)
[2023-10-27] MEDS: amLODIPine Besylate 5 MG TABLET PO ×2 (08:00→19:47)
--- NOTE | 2023-10-27 08:04 | PM.PNORT ---
Subjective Subjective Date of Service: 10/27/23 Principal diagnosis: right total hip replacement Interval history: POD1 s/p RTHA Patient is resting in bed comfortably No overnight events Pain is managed No additional complaints Physical Exam Vital Signs: Vital Signs: Last Vital Signs Temp 97.8 F 10/27/23 04:00 Pulse 69 10/27/23 04:00 Resp 16 10/27/23 04:00 BP 128/59 L 10/27/23 04:00 Pulse Ox 94 10/27/23 04:00 O2 Del Method Room Air 10/27/23 04:00 O2 Flow Rate 2 10/25/23 15:20 BMI result Body Mass Index 30.6 Const: General: cooperative, healthy appearing and no acute distress Resp: Effort & Inspection: normal respiratory effort and able to speak in complete sentences Cardio: Rate: regular rate Peripheral pulses: Peripheral pulses 2+ throughout GI: Palpation (GI): Soft to palpation Skin: Lesions: no lesions Rashes: no rashes Extrem: Other: right hip dressing is c/d/i. Able to dorsi/plantar flex. Calf is supple and nontender. Sensation intact. Pedal pulse intact. Procedures Date of Service Date of Service: 10/27/23 Progress Note: A&P Assessment and plan (1) Status post total hip replacement, right: Status: Acute Plan Continue pain mgmnt Continue Lovenox for dvt ppx Continue PT/OT for RTHA Dispo planning- PT/OT, pain mgmnt, rehab placement for safe discharge and continued therapy for safe return home Time Spent With Patient Time: Total time managing care of this patient today ____ minutes. Quality Stroke Does the patient have a stroke diagnosis?: No VTE Prior VTE?: No VTE Risk Level:: Surgical - low VTE Device Contraindication: Treatment Not Indicated VTE Drug Contraindication: N/A - Med Ordered
[2023-10-27] MEDS: Throat Lozenge, Medicated LOZENGE 1 LOZENGE MUCOUS MEM (08:07)
[2023-10-27] MEDS: guaiFENesin 200 MG/10 ML 10 ML LIQUID PO (08:07)
--- NOTE | 2023-10-27 08:18 | PM.PNORT ---
Subjective Subjective Date of Service: 10/27/23 Principal diagnosis: right total hip replacement Interval history: POD2 s/p RTHA Patient is resting in bed comfortably No overnight events Pain is managed No additional complaints Physical Exam Vital Signs: Vital Signs: Last Vital Signs Temp 98.6 F 10/27/23 08:00 Pulse 81 10/27/23 08:00 Resp 16 10/27/23 08:00 BP 134/60 10/27/23 08:00 Pulse Ox 90 L 10/27/23 08:00 O2 Del Method Room Air 10/27/23 08:00 O2 Flow Rate 2 10/25/23 15:20 BMI result Body Mass Index 30.6 Const: General: cooperative, healthy appearing and no acute distress Resp: Effort & Inspection: normal respiratory effort and able to speak in complete sentences Cardio: Rate: regular rate Peripheral pulses: Peripheral pulses 2+ throughout GI: Palpation (GI): Soft to palpation Skin: Lesions: no lesions Rashes: no rashes Extrem: Other: right hip dressing is c/d/i. Outside dressing taken down. Able to dorsi/plantar flex. Calf is supple and nontender. Sensation intact. Pedal pulse intact. Procedures Date of Service Date of Service: 10/27/23 Progress Note: A&P Assessment and plan (1) Status post total hip replacement, right: Status: Acute Plan Continue pain mgmnt Continue Lovenox for dvt ppx Continue PT/OT for RTHA Dispo planning- PT/OT, pain mgmnt, Rehab placement for safe discharge and continued therapy Time Spent With Patient Time: Total time managing care of this patient today ____ minutes. Quality Stroke Does the patient have a stroke diagnosis?: No VTE Prior VTE?: No VTE Risk Level:: Surgical - low VTE Device Contraindication: Treatment Not Indicated VTE Drug Contraindication: N/A - Med Ordered
[2023-10-27 08:23] LABS: SLIDE REVIEW VERIFIED
[2023-10-27] MEDS: Nystatin Powder 15 GM BOTTLE 1 APPL TOPICAL (08:48)
--- NOTE | 2023-10-27 10:40 | MHC.CM.PN ---
EMR reviewed. Patient is not medically cleared for dc. Plan is dc 10/28 to STR at [facility] via BLS - scheduled for 12:30pm.
[2023-10-27] MEDS: oxyCODONE HCl Immed Release 5 MG TABLET PO (13:10)
[2023-10-27] MEDS: Enoxaparin Sodium 40 MG/0.4 ML SYRINGE SUBCUT (17:01)
[2023-10-27] MEDS: Finasteride 5 MG TABLET PO (19:46)
[2023-10-27] MEDS: oxyCODONE HCl Immed Release 5 MG TABLET 10 MG PO (19:46)
[2023-10-27] MEDS: Losartan Potassium 50 MG TABLET 100 MG PO (19:46)
[2023-10-27] MEDS: Tamsulosin HCL 0.4 MG CAPSULE PO (19:46)
[2023-10-27] MEDS: Atorvastatin Calcium 40 MG TABLET PO (19:47)
[2023-10-28] MEDS: oxyCODONE HCl Immed Release 5 MG TABLET 10 MG PO (00:59)
[2023-10-28 03:45] VITALS: BP 147/65; PULSE 78; RESP 18; TEMP 37.1; O2SAT 92
[2023-10-28 06:30] LABS: MANUAL DIFF FLAG NO
[2023-10-28 06:37] LABS: Basophils Percent Auto 0.3 % (0-2); Eosinophils Absolute Auto 0.4 X10*3/uL (0.0-0.4); Eosinophils Percent Auto 3.9 % (0-4); Hematocrit 30.5 % (42.0-52.0); Hemoglobin 9.6 g/dl (14.0-18.0); Imm Gran Abs Auto 0.04 X10*3/uL (0.00-0.03); Imm Gran Pct Auto 0.4 % (0.0-0.4); Lymphocytes Absolute Auto 1.3 X10*3/uL (1.2-4.9); Lymphocytes Percent Auto 13.3 % (20-40); Mean Corpuscular HGB Conc 31.5 g/dl (31.0-36.0); Mean Corpuscular Hemoglobin 28.2 pg (27.0-33.0); Mean Corpuscular Volume 89.7 fL (80.0-98.0); Mean Platelet Volume 11.4 fL (9.4-12.4); Monocytes Absolute Auto 1.4 X10*3/uL (0.1-1.2); Monocytes Percent Auto 14.1 % (2-11); Neutrophils Absolute Auto 6.8 x10*3/uL (2.0-8.3); Platelet Count 119 X10*3/uL (160-400); Red Cell Distribution Width 13.5 % (11.0-16.0); White Blood Count 10.1 X10*3/uL (4.8-10.8)
[2023-10-28 06:50] LABS: Anion Gap 9 (12-20); Blood Urea Nitrogen 22 mg/dL (9-16); Calcium 9.1 mg/dL (8.4-10.2); Carbon Dioxide 28 mmol/L (22-29); Chloride 105 mmol/L (96-108); Estimated Glomerular Filt Rate 60; Glucose Fasting 121 mg/dL (60-99); Potassium 4.3 mmol/L (3.3-5.1); Sodium 138 mmol/L (135-145)
[2023-10-28 07:55] VITALS: BP 112/51; PULSE 76; RESP 16; TEMP 37.6; O2SAT 91
[2023-10-28] MEDS: 0.9 % Sodium Chloride Flush 3 ML SYRINGE IVFLUSH (08:26)
[2023-10-28] MEDS: amLODIPine Besylate 5 MG TABLET PO (08:26)
[2023-10-28] MEDS: Cholecalciferol (Vitamin D3) 25 MCG TABLET 125 MCG PO (08:26)
[2023-10-28] MEDS: Celecoxib 200 MG CAPSULE PO (08:27)
[2023-10-28] MEDS: Docusate Sodium 100 MG CAPSULE PO (08:27)
--- NOTE | 2023-10-28 08:29 | MHC.CM.PN ---
EMR reviewed. Patient is medically cleared for dc to STR at [facility]. BLS transportation booked for 12:30pm. Elisa HARPER RN, facility and patient aware.
[2023-10-28] MEDS: Nystatin Powder 15 GM BOTTLE 1 APPL TOPICAL (08:35)
--- NOTE | 2023-10-28 09:10 | PC.NURSE ---
Pt appears groggy this morning ,pt reports feeling sleepy and requiring 2 L O2 since 1900. PA Meuse at bedside and updated . Morning dose of oxycontin , gabapentin and methocarbamol held per PA
--- NOTE | 2023-10-28 10:14 | PC.NURSE ---
O2 sat on room air with ambulation was 92% Pa Jairon notified okay to send to STR off oxygen
--- NOTE | 2023-10-28 10:38 | HO.PM.IMPN ---
Subjective Subjective Date of Service: 10/28/23 Interval History: Requested to see patient for hypoxia and sleepiness Patient awake alert answering questions appropriately feels tired of being in bed, denies shortness of breath, not on home oxygen, continued to have intermittent productive cough, No fevers, no chills , tolerating diet no nausea no vomiting, good pain control. Review of Systems All other system reviewed and negative Physical Exam Vital Signs: Vital Signs: Last Vital Signs Temp 99.7 F 10/28/23 07:55 Pulse 76 10/28/23 07:55 Resp 16 10/28/23 07:55 BP 112/51 L 10/28/23 07:55 Pulse Ox 91 L 10/28/23 07:55 O2 Del Method Nasal Cannula 10/28/23 07:55 O2 Flow Rate 1.5 10/28/23 07:55 BMI result Body Mass Index 30.6 Const: Other: General alert oriented x3, resting comfortably in no acute distress. Neck supple no JVD. CVS regular rate rhythm, Respiratory lungs clear to auscultation, diminished, no respiratory distress, no wheeze, no rhonchi. Gastrointestinal abdomen soft, non tender, bowel sounds audible, Extremities no edema. Right hip dressing in place Neuro nonfocal Skin no rash Psych appropriate affect Objective Data Active Medications Acetaminophen (Acetaminophen 325 Mg Tablet) 650 mg PO Q6H PRN PRN Reason: Pain, Mild (Pain Scale 1-3) Last Admin: 10/26/23 14:51 Dose: 650 mg Documented By: COTNANCIE Amlodipine Besylate (Amlodipine Besylate 5 Mg Tablet) 5 mg PO BID [facility]; Protocol Last Admin: 10/28/23 08:26 Dose: 5 mg Documented By: FRANNY Atorvastatin Calcium (Atorvastatin Calcium 40 Mg Tablet) 40 mg PO BEDTIME [facility] Last Admin: 10/27/23 19:47 Dose: 40 mg Documented By: CHARBEL Benzocaine (Throat Lozenge, Medicated Lozenge) 1 lozenge MUCOUS MEM Q2H PRN PRN Reason: Sore Throat Last Admin: 10/27/23 08:07 Dose: 1 lozenge Documented By: NIRAJ Celecoxib (Celecoxib 200 Mg Capsule) 200 mg PO BID [facility] Last Admin: 10/28/23 08:27 Dose: 200 mg Documented By: FRANNY Docusate Sodium (Docusate Sodium 100 Mg Capsule) 100 mg PO BID [facility] Last Admin: 10/28/23 08:27 Dose: 100 mg Documented By: FRANNY Enoxaparin Sodium (Enoxaparin Sodium 40 Mg/0.4 Ml Syringe) 40 mg SUBCUT Q24H [facility] Last Admin: 10/27/23 17:01 Dose: 40 mg Documented By: NIRAJ Fentanyl (Fentanyl Citrate/Pf 100 Mcg/2 Ml Vial) 25 mcg IVPUSH Q5M PRN; Protocol PRN Reason: Pain, Moderate(Pain Scale 4-6) Last Admin: 10/25/23 14:33 Dose: 25 mcg Documented By: EFRNIE Finasteride (Finasteride 5 Mg Tablet) 5 mg PO BEDTIME [facility] Last Admin: 10/27/23 19:46 Dose: 5 mg Documented By: CHARBEL Gabapentin (Gabapentin 300 Mg Capsule) 300 mg PO TID [facility] Last Admin: 10/27/23 19:46 Dose: 300 mg Documented By: CHARBEL Guaifenesin (Guaifenesin 200 Mg/10 Ml 10 Ml Liquid) 10 ml PO Q4H PRN PRN Reason: Cough Last Admin: 10/27/23 08:07 Dose: 10 ml Documented By: NIRAJ Hydromorphone HCl (Hydromorphone Hcl 0.5 Mg/0.5 Ml Syringe) 0.25 mg IVPUSH Q5M PRN; Protocol PRN Reason: Pain, Severe (Pain Scale 7-10) Hydromorphone HCl (Hydromorphone Hcl 0.5 Mg/0.5 Ml Syringe) 0.25 mg IVPUSH Q4H PRN; Protocol PRN Reason: Pain, Severe (Pain Scale 7-10) Last Admin: 10/26/23 00:51 Dose: 0.25 mg Documented By: ROSANA Hydromorphone HCl (Hydromorphone Hcl 0.5 Mg/0.5 Ml Syringe) 0.5 mg IVPUSH Q4H PRN; Protocol PRN Reason: Pain, Severe (Pain Scale 7-10) Last Admin: 10/26/23 22:41 Dose: 0.5 mg Documented By: CHARBEL Losartan Potassium (Losartan Potassium 50 Mg Tablet) 100 mg PO BEDTIME [facility]; Protocol Last Admin: 10/27/23 19:46 Dose: 100 mg Documented By: CHARBEL Methocarbamol (Methocarbamol 500 Mg Tablet) 500 mg PO TID [facility] Last Admin: 10/27/23 19:46 Dose: 500 mg Documented By: CHARBEL Nicotine Polacrilex (Nicotine Polacrilex Lozenge 2 Mg Lozenge) 2 mg BUCCAL Q2H PRN PRN Reason: Nicotine Cravings Nystatin (Nystatin Powder 15 Gm Bottle) 1 appl TOPICAL DAILY [facility]; Protocol Last Admin: 10/28/23 08:35 Dose: 1 appl Documented By: FRANNY Ondansetron HCl (Ondansetron Hcl 4 Mg/2 Ml Vial) 4 mg IVPUSH ONCE PRN PRN Reason: Nausea and Vomiting Ondansetron HCl (Ondansetron Hcl 4 Mg/2 Ml Vial) 4 mg IVPUSH Q8H PRN PRN Reason: Nausea and Vomiting Oxycodone HCl (Oxycodone Hcl Immed Release 5 Mg Tablet) 5 mg PO Q4H PRN PRN Reason: Pain, Moderate(Pain Scale 4-6) Last Admin: 10/27/23 13:10 Dose: 5 mg Documented By: NIRAJ Oxycodone HCl (Oxycodone Hcl Er 10 Mg Tab.Er.12h) 10 mg PO BID [facility] Last Admin: 10/27/23 19:47 Dose: 10 mg Documented By: CHARBEL Oxycodone HCl (Oxycodone Hcl Immed Release 5 Mg Tablet) 10 mg PO Q4H PRN PRN Reason: Pain, Moderate(Pain Scale 4-6) Last Admin: 10/28/23 00:59 Dose: 10 mg Documented By: CHARBEL Sodium Chloride (0.9 % Sodium Chloride Flush 3 Ml Syringe) 3 ml IVFLUSH QSHIFT [facility] Last Admin: 10/28/23 08:26 Dose: 3 ml Documented By: FRANNY Tamsulosin HCl (Tamsulosin Hcl 0.4 Mg Capsule) 0.4 mg PO BEDTIME [facility] Last Admin: 10/27/23 19:46 Dose: 0.4 mg Documented By: CHARBEL Vitamin D (Cholecalciferol (Vitamin D3) 25 Mcg Tablet) 125 mcg PO DAILY [facility] Last Admin: 10/28/23 08:26 Dose: 125 mcg Documented By: FRANNY Labs 10/28/23 06:27 10/28/23 05:49 Labs: Laboratory Results - last 24 hr 10/28/23 10/28/23 05:49 06:27 MCV 89.7 MCH 28.2 MCHC 31.5 RDW 13.5 Plt Count 119 L MPV 11.4 Immature Gran % (Auto) 0.4 Neut % (Auto) 68.0 Lymph % (Auto) 13.3 L [place] % (Auto) 14.1 H Eos % (Auto) 3.9 Baso % (Auto) 0.3 Lymph # (Auto) 1.3 [place] # (Auto) 1.4 H Eos # (Auto) 0.4 Baso # (Auto) 0.0 Abs Immat Gran (auto) 0.04 H Absolute Neuts (auto) 6.8 Absolute Nucleated RBC 0.000 Nucleated RBC % (auto) 0.0 Anion Gap 9 L Estim Creat Clear Calc 63.0 Estimated GFR 60 Fasting Glucose 121 H Calcium 9.1 Assessment and Plan (1) Status post total hip replacement, right: Status: Acute (2) HTN (hypertension): Status: Acute (3) Acute hypoxic respiratory failure: Status: Acute Plan 73 year old male with COPD not on home O2, hypertension, hyperlipidemia, BPH, osteoporosis, severe aortic stenosis s/p TAVR with bioprosthetic valve, coronary artery disease who is a current 1/2 pack per day cigarette smoker admitted to Orthopedic surgery with consult placed to hospitalist service for medical management. #OA right hip s/p JOYCE POD 3 -hypoxia likely due to atelectasis and due to recent RSV infection, lung sounds diminished, no wheeze, no rhonchi, sleepiness likely related to narcotics and muscle relaxers. Continue supportive care with cough medication, oxygen as needed, avoid sedatives, dc muscle relaxers chest x-ray showed atelectasis and bronchial wall thickening, no infiltrate, Strongly recommend to abstain from smoking, encourage incentive spirometry. # acute hypoxic respiratory failure as above due to atelectasis somnolence, recent RSV infection chest x-ray showed no acute infiltrate DC sedatives encourage incentive spirometry wean oxygen as tolerated. #HTN -bp reasonably controlled, continue home antihypertensive #CAD/HLD -continue statin #BPH -continue finasteride #COPD -no acute exacerbation -albuterol prn Will sign off, please do not hesitate to call with any new medical issues or concerns. Quality Stroke Does the patient have a stroke diagnosis?: No VTE Prior VTE?: No VTE Risk Level:: Surgical - low VTE Device Contraindication: Treatment Not Indicated VTE Drug Contraindication: N/A - Med Ordered
[2023-10-28 10:50] VITALS: O2SAT 92
--- NOTE | 2023-10-28 11:05 | PC.NURSE ---
Nursing report called to Felipa Anderson at [facility] . pt to be transported via S ETA [id number]
[2023-10-28] MEDS: Acetaminophen 325 MG TABLET 650 MG PO (11:31)
[2023-10-28 11:56] VITALS: BP 122/76; PULSE 81; RESP 16; TEMP 37.1; O2SAT 94
== END 2023-10-28 12:05 | disposition skilled nursing facility (03) | DRG 469 ==
LOC: HO.SSSA 08:04 → HO.S3 14:52
PROVIDERS: Physician Assistant; Admitting Provider Orthopaedic Surgery; PCP Nurse Practitioner Family; Visit Provider Orthopaedic Surgery
PROC: 0SR904A Replacement of Right Hip Joint with Ceramic on Polyethylene Synthetic Substitute, Uncemented, Open Approach (ICD-10-PCS; CPT 27130; principal; 2023-10-25 10:40)
DX: M16.11 Unilateral primary osteoarthritis, right hip (principal); J96.01 Acute respiratory failure with hypoxia; J98.11 Atelectasis; J44.9 Chronic obstructive pulmonary disease, unspecified; I10 Essential (primary) hypertension; I25.10 Atherosclerotic heart disease of native coronary artery without angina pectoris; N40.0 Benign prostatic hyperplasia without lower urinary tract symptoms; E78.5 Hyperlipidemia, unspecified; F17.210 Nicotine dependence, cigarettes, uncomplicated; Z71.6 Tobacco abuse counseling; Z95.2 Presence of prosthetic heart valve; Z79.899 Other long term (current) drug therapy
CPT/HCPCS: 27130; 36415; 71045; 72170; 80048; 82565; 85025; 86850; 86900; 86901; 87640; 87641; 88304; 88311; 94640; 97110; 97116; 97162; 97166; 97530; 99024; C1713; C1776; J0131; J0690; J1100; J1170; J1650; J2250; J2371; J2405; J2704; J3010; J7120

== ENCOUNTER → 2023-10-25 08:02 | Outpatient (BNV) | payer MEDICARE, SELFPAY | PROVIDERS: Admitting Provider Orthopaedic Surgery; PCP Nurse Practitioner Family; Visit Provider Physician Assistant | DX: J96.01 Acute respiratory failure with hypoxia (principal); Z96.641 Presence of right artificial hip joint; I10 Essential (primary) hypertension | CPT/HCPCS: 99222; 99232; 99233 ==

== ENCOUNTER → 2023-10-25 08:02 | Outpatient (BNV) | payer MEDICARE, SELFPAY | PROVIDERS: Admitting Provider Orthopaedic Surgery; PCP Nurse Practitioner Family; Visit Provider Orthopaedic Surgery | DX: M16.11 Unilateral primary osteoarthritis, right hip (principal) | CPT/HCPCS: 27130; 99024 ==

== ENCOUNTER 2023-11-11 12:55 | Outpatient (AMB) | payer MEDICARE, SELFPAY ==
--- NOTE | 2023-11-11 13:03 | A.OFFVIS_ITS ---
Intake Intake Visit Reasons: PO-RT JOYCE 10/25/23 Intake Note: Ponce is a 73 year old male who presents today for a post op appointment s/p RT JOYCE 10/25/23 Patient reports he is doing well, just having a bit stiffness. Allergies formaldehyde [FORMALDEHYDE] Allergy (Unknown, Verified 11/11/23 13:30) HIVES lanolin Allergy (Verified 11/11/23 13:30) Hives propylene glycol Allergy (Verified 11/11/23 13:30) Rash a steroid cream; he is not dimitry Allergy (Unknown, Uncoded 10/25/23 08:15) Unknown [employer] and [employer] Allergy (Unknown, Uncoded 10/12/23 15:23) Unknown HPI PO-RT JOYCE 10/25/23 HPI Details 73-year-old male who presents in the off ice today 17 days status post right total hip arthroplasty, which was performed on 10/25/[address] Pham. [facility] Medical History Arthritis Enlarged prostate Cough Elevated cholesterol HTN (hypertension) Right shoulder pain Non-rheumatic aortic stenosis Severe aortic stenosis Diverticulosis Umbilical hernia Deformity of left hand Systolic murmur Smoker COPD (chronic obstructive pulmonary disease) Skin cancer Rectus diastasis Surgical History Hx of hand surgery H/O colonoscopy Status post transcatheter aortic valve replacement (TAVR) using bioprosthesis Aortic valve replaced S/P cardiac catheterization History of left hip replacement Family History Father Unknown family medical history Mother No problems noted. Social History Household Members: Spouse Housing: House Are you a primary senior care provider to a significant other at home: No Do you presently have visiting nurse or other home services: No Alcohol intake: never Patient Tobacco Use Status: Current everyday Tobacco user Tobacco use type: Cigarette Cigarettes Per Day: 10 Years Smoked: 55 e-Cigarette/Vaping Use: Never Used Second Hand Smoke Exposure: No service: No Current occupational status: employed Cognitive needs: No Hearing needs: No Vision needs: Yes Review of Systems Const All systems reviewed & are unremarkable except as noted in HPI and below Physical Exam Const General: cooperative, healthy appearing and no acute distress Resp Effort & Inspection: normal respiratory effort and able to speak in complete sentences Cardio Rate: regular rate Peripheral pulses: Peripheral pulses 2+ throughout GI Palpation (GI): Soft to palpation Skin Lesions: no lesions Rashes: no rashes Extrem Other: Right hip: Incision site is clean, dry, and intact. [place] intact. No surrounding erythema or drainage. No signs of infection. Full ROM in all planes. NVI. Assessment & Plan Assessment & Plan (1) Status post total hip replacement, right: Comment: 10/25/2023 Dr. Stan Pham Code(s): Z96.641 - Presence of right artificial hip joint Plan Mr. Fitzpatrick is a 73-year-old male who presents in the office today 17 days status post right total hip arthroplasty, which was performed on 10/25/[address] Pham. [place] were removed and steri-stripes were applied. The patient will work with physical therapy on glute, quad, core, and gait training. Follow up will be in [address] Pham, or sooner if needed. I sent a prescription for an antibiotic prophylactically for possible dental work in the future. However, the patient was educated they should not have any major dental work for the first 3 months post op after the right total hip arthroplasty. Patient Instructions: Scribed for Dawna Weiner PA-C by Heidi Llanes durable medical equipment repairer, on 11/11/2023 at 12:57 pm, EST. Coding Level of Care Code Global (05254) Diagnoses Status post total hip replacement, right Z96.641
== END 2023-11-11 13:32 | disposition home or self-care (01) ==
PROVIDERS: PCP Nurse Practitioner Family; Visit Provider Physician Assistant
DX: Z96.641 Presence of right artificial hip joint (principal)
CPT/HCPCS: 99024

== ENCOUNTER → 2023-11-11 12:55 | Outpatient (BNVA) | payer MEDICARE, SELFPAY | PROVIDERS: PCP Nurse Practitioner Family; Visit Provider Physician Assistant | DX: Z47.1 Aftercare following joint replacement surgery (principal); Z96.641 Presence of right artificial hip joint | CPT/HCPCS: 99212 ==

== ENCOUNTER 2023-12-09 11:14 | Outpatient (AMB) | payer MEDICARE, SELFPAY ==
--- NOTE | 2023-12-09 11:30 | MHC.OFFVIS ---
Intake Vital Signs 12/09/23 11:47 Height 5 ft 9 in Weight 220 lb BMI 32.5 Intake Visit Reasons: 6 wk PO right JOCYE 10/25/23 Intake Note: Ponce is a 73 year old male who presents for his post operative appointment s/p Right JOYCE on 10/25/2023 Patient reports he is feeling good. Has completed home physical therapy. He plans to go to outpatient physical therapy at [facility] in [place]. He denies any fevers or chills. He has no longer walking with an assistive device. Allergies formaldehyde [FORMALDEHYDE] Allergy (Unknown, Verified 12/09/23 11:47) HIVES lanolin Allergy (Verified 12/09/23 11:47) Hives propylene glycol Allergy (Verified 12/09/23 11:47) Rash a steroid cream; he is not dimitry Allergy (Unknown, Uncoded 10/25/23 08:15) Unknown sandi donuts and subway Allergy (Unknown, Uncoded 10/12/23 15:23) Unknown Medication List - Last Reconciled 12/09/23 by Stan Pham MD acetaminophen 650 mg PO BID acetaminophen 650 mg (2 x 325 mg) PO Q6H PRN 30 days amlodipine 5 mg PO BID aspirin 81 mg PO DAILY atorvastatin 40 mg PO BEDTIME 90 days [bedside commode As directed] benzocaine-menthol 6-10 mg (Chloraseptic Sore Throat) 1 mohsen mucous membrane Q2H PRN cane As directed celecoxib (Celebrex) 200 mg PO DAILY PRN celecoxib 200 mg PO BID 30 days cholecalciferol (vitamin D3) 125 mcg PO DAILY docusate sodium 100 mg PO BID 30 days enoxaparin 40 mg (0.4 mL) subcut Q24H 42 days finasteride 5 mg PO BEDTIME gabapentin 300 mg PO TID 30 days losartan 100 mg PO BEDTIME methocarbamol 500 mg PO TID 7 days methocarbamol 500 mg PO Q12H PRN nystatin 1 appl topical DAILY oxycodone 5 mg PO Q4H PRN 7 days [Raised toliet seat As directed] tamsulosin 0.4 mg PO BEDTIME walker Folding front wheeled walker [facility] Medical History Arthritis Enlarged prostate Cough Elevated cholesterol HTN (hypertension) Right shoulder pain Non-rheumatic aortic stenosis Severe aortic stenosis Diverticulosis Umbilical hernia Deformity of left hand Systolic murmur Smoker COPD (chronic obstructive pulmonary disease) Skin cancer Rectus diastasis Surgical History Hx of hand surgery H/O colonoscopy Status post transcatheter aortic valve replacement (TAVR) using bioprosthesis Aortic valve replaced S/P cardiac catheterization History of left hip replacement Family History Father Unknown family medical history Mother No problems noted. Social History Household Members: Spouse Housing: House Are you a primary field care manager to a significant other at home: No Do you presently have visiting nurse or other home services: No Alcohol intake: never Patient Tobacco Use Status: Current everyday Tobacco user Tobacco use type: Cigarette Cigarettes Per Day: 10 Years Smoked: 55 e-Cigarette/Vaping Use: Never Used Second Hand Smoke Exposure: No service: No Current occupational status: employed Cognitive needs: No Hearing needs: No Vision needs: Yes Physical Exam Vital Signs: BMI result Body Mass Index 32.5 Extrem Other: Right hip examination shows that the surgical incision is well healed, no erythema, minimal discomfort with range of motion, mild tenderness over his bursa Assessment & Plan Assessment & Plan (1) Status post total hip replacement, right: Comment: 10/25/2023 Dr. Stan Pham Code(s): Z96.641 - Presence of right artificial hip joint Plan Mr. Fitzpatrick continues to do well after undergoing right total hip replacement surgery on 10/25/2023. Will continue with his physical therapy exercises. He does know to take antibiotics before any dental work. I did refill his prescriptions for Celebrex and Robaxin. Will contact me prior to his follow-up appointment in 6-8 weeks should any questions or concerns arise. Feel free to call me at any time should questions regarding his orthopedic management arise. Orders: Orders PT Evaluation and Treatment Today Z96.641 - Presence of right artificial hip joint Medications: New celecoxib (Celebrex) 200 mg PO DAILY PRN 30 caps 2RF pain methocarbamol 500 mg PO Q12H PRN 30 tabs 2RF spasms Coding Level of Care Code Global (91743) Diagnoses Status post total hip replacement, right Z96.643
[2023-12-09 11:47] VITALS: BMI 32.5
== END 2023-12-09 12:07 | disposition home or self-care (01) ==
PROVIDERS: PCP Nurse Practitioner Family; Visit Provider Orthopaedic Surgery
DX: Z96.641 Presence of right artificial hip joint (principal)
CPT/HCPCS: 99024

== ENCOUNTER → 2023-12-09 11:14 | Outpatient (BNVA) | payer MEDICARE, SELFPAY | PROVIDERS: PCP Nurse Practitioner Family; Visit Provider Orthopaedic Surgery | DX: Z47.1 Aftercare following joint replacement surgery (principal); Z96.641 Presence of right artificial hip joint | CPT/HCPCS: 99212 ==

== ENCOUNTER 2024-01-27 09:00 | Outpatient (RCR) | payer MEDICARE, SELFPAY ==
--- NOTE | 2023-12-13 10:54 | MHC.PT.EP ---
[facility] [place] Office [place] Office [place] Office [address] Shona Mendoza [address] [phone] F: [phone] F: [phone] F: [phone] F: [phone] Physical Therapy Plan of Care Date of Evaluation: 12/13/23 Date of Surgery: 10/25/23 Diagnosis: This is a 73 yo male presenting to skilled PT with a script for s/p R JOYCE. Assessment: This is a 73 yo male presenting to skilled PT with a script for s/p R JOYCE. Patient underwent a THR on 10/25/[address] Pham. He went to rehab for 2 weeks s/p surgery, reports no po complications. He then had home for 2 weeks following this. Patient reporting stiffness and soreness some times now, mainly at the hamstrings and incision. He reports that he is having a hard time with walking. He also reports that he was not given hip precautions and is allowed to get on and off of the floor as well as climb ladders (no more than 2-3 steps) both of which he is having a hard time with as well. Assessment reveals pain that ranges from up to a 3/10 at the worst. Patient demos decreased hip and lumbar ROM, strength of BLE's, TTP at incision and glut and impaired posture with forward head and rounded shoulders as well as impaired gait and balance all expected s/p THR. Based on functional limitations, impaired QOL and pain tolerance patient is a good candidate for skilled PT 2x/wk for 5wks. Frequency and Duration: The patient will be seen 2x/wk for 5wks Short Term Goals: Pt will demonstrate improved postural awareness and understanding of core engagement with supine and standing tasks without cues throughout session to improve overall safety in 2 weeks. Pt will continue to reinforce precautions, sitting, standing and ADL modifications with proper body mechanics in 2 wks. 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 Pt will demonstrate ability to bend and lift WNL min to no pain for household tasks in 4 wks. Pt will be I in HEP and compliant in 4wks Pt will report 50% improvement in pain, function and balance in 4wks Treatment Plan: Modalities to reduce pain, spasms and effusion. Manual therapy to restore motion and function. Therapeutic exercise to improve strength and flexibility. Neuromuscular re-education for posture and balance. Therapeutic activities to return to functional activities of daily living. Electronically signed by: Cecille Ortega, PT Please sign and return to therapist. Thank you for your referral.
--- NOTE | 2024-02-28 09:10 | MHC.PT.DC ---
[facility] [place] Office [place] Office [place] Office [address] Shona Mendoza [address] [phone] F: [phone] F: [phone] F: [phone] F: [phone] Physical Therapy Discharge Report Diagnosis: This is a 73 yo male presenting to skilled PT with a script for s/p R JOYCE. Date of Surgery: 10/25/23 Date of Evaluation: 12/13/23 Date of Discharge: 02/28/24 Treatments to Date: 9 Cancellations to Date: 0 No Shows to Date: 0 Discharge Status: Achieved Goals Improved Function Independent with HEP Discharge Summary: Patient has come to 9 PT visits. He demos good understanding of his HEP. He is back to work in full, drives and ambulates without an AD. He was extensively educated on healing times and anatomy. He continues to complain of B posterior leg stiffness, I educated him that he should be talking about this with his PCP as this has been a continued compliant of his (? lumbar x-ray). At this time he no longer needs skilled PT for his THR and is ready for DC to HEP. Electronically signed by: Cecille Ortega, PT Please sign and return to therapist. Thank you for your referral.
== END 2024-02-28 09:15 | disposition home or self-care (01) ==
LOC: HO.PTCHIC 09:00
PROVIDERS: PCP Nurse Practitioner Family; Visit Provider Orthopaedic Surgery
DX: Z47.1 Aftercare following joint replacement surgery (principal); Z96.641 Presence of right artificial hip joint
CPT/HCPCS: 97110; 97162; 97530

== ENCOUNTER 2024-02-24 09:05 | Outpatient (REF) | payer MEDICARE, SELFPAY ==
--- NOTE | ~2024-02-24 | XR_ITS ---
EXAMINATION: XR SHOULDER, RIGHT CLINICAL INFORMATION: Pain in the right shoulder COMPARISON: None available. TECHNIQUE: AP external rotation, Grashey, scapular Y, and axillary views of the right shoulder. FINDINGS: There is moderate hypertrophic osteoarthritis of the acromioclavicular joint. Normal. Surgical clips right axillary region. Partially visualized right chest normal. XR/XR shoulder RT min 2V IMPRESSION: Moderate osteoarthritis of the acromioclavicular joint.
--- NOTE | ~2024-02-24 | XR_ITS ---
EXAMINATION: XR LUMBOSACRAL SPINE CLINICAL INFORMATION: Spinal stenosis, lumbar region without neurogenic claudication COMPARISON: Lumbar spine 03/24/2022 TECHNIQUE: Three views of the lumbosacral spine. FINDINGS: There are 5 nonrib-bearing lumbar-type vertebral bodies with normal lumbar lordosis. There is borderline anterior wedge compression of T12 and L1, as noted previously. No acute paraspinal soft tissue swelling. There are multilevel degenerative disc changes most marked at L5-S1. Multilevel vertebral anterior osteophytes are seen. There is borderline and grade 0-1 spondylolisthesis of L4 on L5, unchanged. There is multilevel degenerative facet joint disease, most marked at L4-L5 and L5-S1. There is calcification of the abdominal aorta without evidence of aneurysmal dilatation. Left total hip replacement is again seen. Interval right total hip replacement. XR/XR lumbar spine 2-3V IMPRESSION: 1. Multilevel degenerative disc disease and degenerative facet joint disease. 2. Borderline grade 0-1 spondylolisthesis of L4 on L5, unchanged. 3. No acute bony abnormality. 4. Interval right total hip replacement.
== END 2024-02-24 09:06 | disposition home or self-care (01) ==
LOC: HO.HMGCX 09:05
PROVIDERS: PCP Nurse Practitioner Family; Visit Provider Nurse Practitioner Family
DX: M48.061 Spinal stenosis, lumbar region without neurogenic claudication (principal); M25.511 Pain in right shoulder
CPT/HCPCS: 72100; 73030

== ENCOUNTER 2024-04-06 09:35 | Outpatient (AMB) | payer MEDICARE, SELFPAY ==
--- NOTE | 2024-04-06 09:36 | MHC.OFFVIS ---
Vital Signs 04/06/24 09:37 Height 5 ft 9 in Weight 220 lb BMI 32.5 Intake Visit Reasons: Low back pain, Bilateral hip pain Intake Note: Mr. Fitzpatrick is a 73-year-old male who presents with complaints of progressively worsening low back pain which radiates down the posterior aspects of both of his hips. The patient has undergone bilateral total hip replacement surgeries in the past. Denies any groin pain. The patient states that his back pain radiates into his left buttocks as well as all the way down his right leg. He also reports intermittent weakness in his right leg. The patient states that several years ago he was told that he has a ?pinched nerve? in his lumbar spine. He has done physical therapy which aggravated his symptoms. He has also tried Tylenol and anti-inflammatory medicines which gave him minimal relief. Allergies formaldehyde [FORMALDEHYDE] Allergy (Unknown, Verified 04/06/24 09:44) HIVES lanolin Allergy (Verified 04/06/24 09:44) Hives propylene glycol Allergy (Verified 04/06/24 09:44) Rash a steroid cream; he is not dimitry Allergy (Unknown, Uncoded 04/06/24 09:44) Unknown sandi donuts and subway Allergy (Unknown, Uncoded 04/06/24 09:44) Unknown Medication List - Last Reconciled 04/06/24 by Stan Pham MD acetaminophen 650 mg PO BID acetaminophen 650 mg (2 x 325 mg) PO Q6H PRN 30 days amlodipine 10 mg PO ONCE 90 days aspirin 81 mg PO DAILY atorvastatin 40 mg PO BEDTIME 90 days [bedside commode As directed] benzocaine-menthol 6-10 mg (Chloraseptic Sore Throat) 1 mohsen mucous membrane Q2H PRN cane As directed celecoxib (Celebrex) 200 mg PO DAILY PRN celecoxib 200 mg PO BID cholecalciferol (vitamin D3) 125 mcg PO DAILY docusate sodium 100 mg PO BID 30 days enoxaparin 40 mg (0.4 mL) subcut Q24H 42 days finasteride 5 mg PO BEDTIME gabapentin 300 mg PO TID 30 days losartan 100 mg PO BEDTIME methocarbamol 500 mg PO TID 7 days methocarbamol 500 mg PO Q12H PRN nystatin 1 appl topical DAILY oxycodone 5 mg PO Q4H PRN 7 days [Raised toliet seat As directed] tamsulosin 0.4 mg PO BEDTIME walker Folding front wheeled walker [facility] Medical History Arthritis Enlarged prostate Cough Elevated cholesterol HTN (hypertension) Right shoulder pain Non-rheumatic aortic stenosis Severe aortic stenosis Diverticulosis Umbilical hernia Deformity of left hand Systolic murmur Smoker COPD (chronic obstructive pulmonary disease) Skin cancer Rectus diastasis Surgical History Hx of hand surgery H/O colonoscopy Status post transcatheter aortic valve replacement (TAVR) using bioprosthesis Aortic valve replaced S/P cardiac catheterization History of left hip replacement Family History Father Unknown family medical history Mother No problems noted. Social History Household Members: Spouse Housing: House Are you a primary healthcare social worker to a significant other at home: No Do you presently have visiting nurse or other home services: No Alcohol intake: never Patient Tobacco Use Status: Current everyday Tobacco user Tobacco use type: Cigarette Cigarettes Per Day: 10 Years Smoked: 55 e-Cigarette/Vaping Use: Never Used Second Hand Smoke Exposure: No service: No Current occupational status: employed Cognitive needs: No Hearing needs: No Vision needs: Yes Physical Exam Vital Signs: BMI result Body Mass Index 32.5 Const Other: Well-nourished well-developed very friendly male awake alert and oriented x3 in no acute distress Back/Spine/Pelvis Other: Lumbar spine examination shows bilateral paraspinal muscle tenderness, pain with range of motion, positive straight leg raise test on the right at 70 degrees, 4/5 strength with testing of his right hip flexors and knee extensors when compared to 5/5 strength on his left side Extrem Other: Bilateral lower extremity examination shows good capillary refill, no skin lesions noted, normal sensation light touch Bilateral hip examination shows that the surgical incisions are well healed, no erythema, minimal tenderness over his greater trochanteric bursae, minimal discomfort with range of motion Results Reviewed Results Reviewed: X-rays of the patient's bilateral hips show total hip arthroplasties in good position with no signs of loosening, no acute bony abnormalities Assessment & Plan Assessment & Plan (1) Lower back pain: Code(s): M54.50 - Low back pain, unspecified Category: Medical (2) Bilateral hip pain: Code(s): M25.551 - Pain in right hip; M25.552 - Pain in left hip Plan Mr. Fitzpatrick presents with progressively worsening low back pain which radiates down the posterior aspects of both of his hips as well as right leg weakness possibly due to lumbar stenosis or a disc herniation. Thus, I will send the patient for an MRI of his lumbar spine for further evaluation. Will contact me prior to the MRI should his symptoms worsen in any way. I will see him back following the MRI to discuss the findings. Feel free to call me at any time should questions regarding his orthopedic management arise. I spent 22 minutes in reviewing the patient's records and imaging studies, seeing the patient and documenting in the medical record. Orders: Orders XR hip RT min 2V 04/06/24 M25.551 - Pain in right hip MR lumbar spine wo con 04/06/24 M54.50 - Low back pain, unspecified, M79.604 - Pain in right leg, M79.605 - Pain in left leg Coding Level of Care Code Est Pt Level 3 (50481) Diagnoses Lower back pain M54.50 Bilateral hip pain M25.551; M25.552
[2024-04-06 09:37] VITALS: BMI 32.5
== END 2024-04-06 10:38 | disposition home or self-care (01) ==
LOC: HO.HOS 09:35
PROVIDERS: PCP Nurse Practitioner Family; Visit Provider Orthopaedic Surgery
DX: M54.50 Low back pain, unspecified (principal); M25.551 Pain in right hip; M25.552 Pain in left hip
CPT/HCPCS: 99213

== ENCOUNTER 2024-04-06 10:32 | Outpatient (REF) | payer MEDICARE, SELFPAY ==
--- NOTE | ~2024-04-06 | XR_ITS ---
EXAMINATION: XR HIP, RIGHT CLINICAL INFORMATION: Pain in right hip. COMPARISON: 10/25/2023. TECHNIQUE: 3 views of the right hip. FINDINGS: Right hip: Right total hip prosthesis redemonstrated with components in satisfactory alignment. Cerclage wire redemonstrated along femoral component. Hardware appears intact. Left total hip prosthesis appears stable on AP views provided, although inferior tip of the femoral component is not included in the images. Diffuse demineralization. Vascular calcifications. XR/XR hip RT min 2V IMPRESSION: Right total hip prosthesis with components in satisfactory alignment.
== END 2024-04-06 10:33 | disposition home or self-care (01) ==
LOC: HO.HOSX 10:32
PROVIDERS: Visit Provider Orthopaedic Surgery
DX: M25.551 Pain in right hip (principal); M25.552 Pain in left hip; M54.50 Low back pain, unspecified
CPT/HCPCS: 73502; 99212

== ENCOUNTER 2024-04-17 10:20 | Outpatient (AMB) | payer MEDICARE, SELFPAY ==
[2024-04-17 10:37] VITALS: BP 118/58; PULSE 60; BMI 31.1
--- NOTE | 2024-04-17 10:37 | A.OFFVIS_ITS ---
Vital Signs 04/17/24 10:37 Height 5 ft 9 in Weight 210 lb 12.191 oz BMI 31.1 BP 118/58 L Blood Pressure Location Lt brachial Position Sitting Pulse 60 Intake Visit Reasons: 6 mth f/up Stunt Person Required: No Accompanied by: Self / Same As Patient Allergies formaldehyde [FORMALDEHYDE] Allergy (Unknown, Verified 04/06/24 09:44) HIVES lanolin Allergy (Verified 04/06/24 09:44) Hives propylene glycol Allergy (Verified 04/06/24 09:44) Rash a steroid cream; he is not dimitry Allergy (Unknown, Uncoded 04/06/24 09:44) Unknown sandi donuts and subway Allergy (Unknown, Uncoded 04/06/24 09:44) Unknown Medication List - Last Reconciled 04/17/24 by Froylan Galvan MD acetaminophen 650 mg (2 x 325 mg) PO Q6H PRN 30 days amlodipine 10 mg PO ONCE 90 days aspirin 81 mg PO DAILY atorvastatin 40 mg PO BEDTIME 90 days [bedside commode As directed] cane As directed celecoxib (Celebrex) 200 mg PO DAILY PRN cholecalciferol (vitamin D3) 125 mcg PO DAILY docusate sodium 100 mg PO BID 30 days enoxaparin 40 mg (0.4 mL) subcut Q24H 42 days finasteride 5 mg PO BEDTIME gabapentin 300 mg PO TID 30 days losartan 100 mg PO BEDTIME methocarbamol 500 mg PO Q12H PRN nystatin 1 appl topical DAILY [Raised toliet seat As directed] walker Folding front wheeled walker HPI Comments Details: Ponce returns for follow-up. History of transcatheter aortic valve replacement. Medically treated CAD. Since last seen, he states he is doing good. No complaints like angina or shortness of breath or in fact anything cardiac sounding. [facility] Medical History Acute hypoxic respiratory failure HTN (hypertension) Osteoarthritis of right hip Arthritis Enlarged prostate Cough Elevated cholesterol HTN (hypertension) Right shoulder pain Non-rheumatic aortic stenosis Severe aortic stenosis Diverticulosis Umbilical hernia Deformity of left hand Systolic murmur Smoker COPD (chronic obstructive pulmonary disease) Skin cancer Rectus diastasis Surgical History Hx of hand surgery H/O colonoscopy Status post transcatheter aortic valve replacement (TAVR) using bioprosthesis Aortic valve replaced S/P cardiac catheterization History of left hip replacement Family History Father Unknown family medical history Mother No problems noted. Social History Household Members: Spouse Housing: House Are you a primary palliative care coordinator to a significant other at home: No Do you presently have visiting nurse or other home services: No Alcohol intake: never Patient Tobacco Use Status: Current everyday Tobacco user Tobacco use type: Cigarette Cigarettes Per Day: 10 Years Smoked: 55 e-Cigarette/Vaping Use: Never Used Second Hand Smoke Exposure: No service: No Current occupational status: employed Cognitive needs: No Hearing needs: No Vision needs: Yes Review of Systems Const All systems reviewed & are unremarkable except as noted in HPI and below Denies chills, Denies fatigue, Denies fever(s), Denies weight gain and Denies weight loss Eyes Reports as per HPI and Denies no additional complaints ENT Denies no additional complaints and Reports as per HPI Card Denies chest pain, Denies leg edema, Denies lightheadedness, Denies palpitations, Denies dyspnea on exertion and Denies orthopnea Resp Denies cough and Denies dyspnea on exertion GI Reports melena, Denies hematochezia and Denies change in stool character Reports no additional complaints and Reports as per HPI Musc Denies muscle weakness and Denies radiating pain into limb Skin/Breast Reports system reviewed and no additional complaints, except as documented Neuro Reports no additional complaints and Reports as per HPI Psych Reports no additional complaints and Reports as per HPI Endo Denies fatigue and Denies palpitations Diego/Lymph Reports no additional complaints and Reports as per HPI Aller/Immun Reports no additional complaints and Reports as per HPI Physical Exam Vital Signs: Last Vital Signs Pulse 60 04/17/24 10:37 BP 118/58 L 04/17/24 10:37 BMI result Body Mass Index 31.1 Const General: comfortable and no acute distress Orientation/consciousness: patient oriented x3 HEENT Other: Unremarkable Head: Yes normal to inspection Neck Neck: Yes normal visual inspection Chest Chest palpation & inspection: normal inspection of the chest Resp Auscultation: clear to auscultation bilaterally Cardio Palpation: normal PMI Heart sounds: S1 normal heart sound present, S2 normal heart sound present, no gallops, Murmur heart sound present systolic II/ and at the right sternal bor estella and no rubs GI Palpation (GI): Soft to palpation Back/Spine/Pelvis Other: unremarkable Skin General skin exam: no rashes or lesions noted Neuro General: patient oriented x3 Extrem General: Yes normal to inspection Psych Mental Status: mental status grossly normal Assessment & Plan Assessment & Plan (1) Status post transcatheter aortic valve replacement (TAVR) using bioprosthesis: [place] [facility] [place]s): Z95.3 - Presence of xenogenic heart valve Category: Surgical Plan: Status post TAVR. In the echocardiogram, normal bioprosthetic aortic valve function. Otherwise, infective endocarditis prophylaxis per protocol. Remains on aspirin. (2) Coronary artery disease: Code(s): I25.10 - Atherosclerotic heart disease of upper [place] coronary artery without angina pectoris Category: Medical Qualifiers: Coronary Disease-Associated Artery/Lesion type: upper [place] artery Associated angina: without angina Plan: Cardiac catheterization shows moderate disease in the mid right coronary artery; severe circumflex stenosis. Continue aspirin and statins. (3) Essential hypertension: Code(s): I10 - Essential (primary) hypertension Category: Medical Plan: Stable. (4) Smoker: Code(s): F17.200 - Nicotine dependence, unspecified, uncomplicated Category: Social Hx Plan: Again discussed about quitting. Not sure if he will actually do so. Coding Level of Care Code Est Pt Level 4 (87969) Diagnoses Status post transcatheter aortic valve replacement (TAVR) using bioprosthesis Z95.3 Coronary artery disease I25.10 Coronary Disease-Associated Artery/Lesion type: upper [place] artery Associated angina: without angina Essential hypertension I10 Smoker F17.200
== END 2024-04-17 11:01 | disposition home or self-care (01) ==
PROVIDERS: Visit Provider Internal Medicine
DX: Z95.3 Presence of xenogenic heart valve (principal); I25.10 Atherosclerotic heart disease of native coronary artery without angina pectoris; I10 Essential (primary) hypertension; F17.200 Nicotine dependence, unspecified, uncomplicated
CPT/HCPCS: 99214

== ENCOUNTER → 2024-04-17 10:20 | Outpatient (BNVA) | payer MEDICARE, SELFPAY | PROVIDERS: Visit Provider Internal Medicine | DX: I25.10 Atherosclerotic heart disease of native coronary artery without angina pectoris (principal); I10 Essential (primary) hypertension; F17.200 Nicotine dependence, unspecified, uncomplicated; Z95.3 Presence of xenogenic heart valve; Z79.82 Long term (current) use of aspirin; Z79.899 Other long term (current) drug therapy | CPT/HCPCS: 99212 ==

== ENCOUNTER 2024-04-24 12:59 | Outpatient (REF) | payer MEDICARE, SELFPAY ==
[2024-04-24 16:09] LABS: MANUAL DIFF FLAG NO
[2024-04-24 16:12] LABS: Basophils Absolute Auto 0.1 X10*3/uL (0.0-0.2); Basophils Percent Auto 0.6 % (0-2); Eosinophils Absolute Auto 0.3 X10*3/uL (0.0-0.4); Eosinophils Percent Auto 3.9 % (0-4); Hematocrit 39.5 % (42.0-52.0); Hemoglobin 13.1 g/dl (14.0-18.0); Imm Gran Abs Auto 0.02 X10*3/uL (0.00-0.03); Imm Gran Pct Auto 0.3 % (0.0-0.4); Lymphocytes Absolute Auto 1.9 X10*3/uL (1.2-4.9); Lymphocytes Percent Auto 24.3 % (20-40); Mean Corpuscular HGB Conc 33.2 g/dl (31.0-36.0); Mean Corpuscular Hemoglobin 29.2 pg (27.0-33.0); Mean Corpuscular Volume 88.2 fL (80.0-98.0); Mean Platelet Volume 11.3 fL (9.4-12.4); Monocytes Absolute Auto 0.8 X10*3/uL (0.1-1.2); Monocytes Percent Auto 10.6 % (2-11); Neutrophils Absolute Auto 4.8 x10*3/uL (2.0-8.3); Neutrophils Percent Auto 60.3 % (45-73); Platelet Count 152 X10*3/uL (160-400); Red Blood Count 4.48 X10*6/uL (4.60-5.80); White Blood Count 7.9 X10*3/uL (4.8-10.8)
[2024-04-24 16:37] LABS: Alanine Aminotransferase 22 U/L (0-40); Albumin Level 4.4 g/dL (3.5-5.0); Alkaline Phosphatase 65 U/L (39-117); Anion Gap 15 (12-20); Aspartate Amino Transferase 30 U/L (5-37); Bilirubin Total 0.6 mg/dL (0.0-1.0); Blood Urea Nitrogen 22 mg/dL (9-16); Calcium 9.8 mg/dL (8.4-10.2); Carbon Dioxide 22 mmol/L (22-29); Chloride 108 mmol/L (96-108); Estimated Glomerular Filt Rate 59; Glucose Random 86 mg/dL (60-115); Magnesium 2.2 mg/dL (1.6-2.6); Potassium 4.2 mmol/L (3.3-5.1); Sodium 141 mmol/L (135-145); Total Protein 6.8 g/dL (6.5-8.0)
== END 2024-04-24 13:00 | disposition home or self-care (01) ==
LOC: HO.HMGCLDS 12:59
PROVIDERS: PCP Nurse Practitioner Family; Visit Provider Nurse Practitioner Family
DX: R25.2 Cramp and spasm (principal)
CPT/HCPCS: 36415; 80053; 82550; 83735; 85025

== ENCOUNTER 2024-05-24 08:08 | Outpatient (AMB) | payer MEDICARE, SELFPAY ==
--- NOTE | 2024-05-24 08:10 | MHC.OFFVIS ---
Intake Visit Reasons: L-Spine MRI Review Intake Note: Mr. Fitzpatrick is a 73-year-old male who presents with complaints of progressively worsening low back pain which radiates down the posterior aspects of both of his hips. The patient has undergone bilateral total hip replacement surgeries in the past. Denies any groin pain. The patient states that his back pain radiates into his left buttocks as well as all the way down his right leg. He also reports intermittent weakness in his right leg. The patient states that several years ago he was told that he has a ?pinched nerve? in his lumbar spine. He states that he saw Dr. Ellis from Neurosurgery at [facility] approximately 3 years ago. He has done physical therapy which aggravated his symptoms. He has also tried Tylenol and anti-inflammatory medicines which gave him minimal relief. Allergies formaldehyde [FORMALDEHYDE] Allergy (Unknown, Verified 05/24/24 08:10) HIVES lanolin Allergy (Verified 05/24/24 08:10) Hives propylene glycol Allergy (Verified 05/24/24 08:10) Rash a steroid cream; he is not dimitry Allergy (Unknown, Uncoded 05/24/24 08:10) Unknown sand[employer]uts and subway Allergy (Unknown, Uncoded 05/24/24 08:10) Unknown Medication List - Last Reconciled 05/24/24 by Stan Pham MD acetaminophen 650 mg (2 x 325 mg) PO Q6H PRN 30 days amlodipine 10 mg PO ONCE 90 days aspirin 81 mg PO DAILY atorvastatin 40 mg PO BEDTIME 90 days [bedside commode As directed] cane As directed celecoxib 200 mg PO BID cholecalciferol (vitamin D3) 125 mcg PO DAILY docusate sodium 100 mg PO BID 30 days finasteride 5 mg PO BEDTIME gabapentin 300 mg PO TID 30 days losartan 100 mg PO BEDTIME magnesium oxide 400 mg PO DAILY methocarbamol 500 mg PO Q12H PRN nystatin 1 appl topical DAILY [Raised toliet seat As directed] walker Folding front wheeled walker [facility] Medical History Acute hypoxic respiratory failure HTN (hypertension) Osteoarthritis of right hip Arthritis Enlarged prostate Cough Elevated cholesterol HTN (hypertension) Right shoulder pain Non-rheumatic aortic stenosis Severe aortic stenosis Diverticulosis Umbilical hernia Deformity of left hand Systolic murmur Smoker COPD (chronic obstructive pulmonary disease) Skin cancer Rectus diastasis Surgical History Hx of hand surgery H/O colonoscopy Status post transcatheter aortic valve replacement (TAVR) using bioprosthesis Aortic valve replaced S/P cardiac catheterization History of left hip replacement Family History Father Unknown family medical history Mother No problems noted. Social History Household Members: Spouse Housing: House Are you a primary home care and home health aides teacher to a significant other at home: No Do you presently have visiting nurse or other home services: No Alcohol intake: never Patient Tobacco Use Status: Current everyday Tobacco user Tobacco use type: Cigarette Cigarettes Per Day: 10 Years Smoked: 55 e-Cigarette/Vaping Use: Never Used Second Hand Smoke Exposure: No service: No Current occupational status: employed Cognitive needs: No Hearing needs: No Vision needs: Yes Physical Exam Const Other: Well-nourished well-developed very friendly male awake alert and oriented x3 in no acute distress Back/Spine/Pelvis Other: Low back examination shows bilateral paraspinal muscle tenderness, pain with range of motion, positive straight leg raise test bilaterally at 70 degrees Results Reviewed Results Reviewed: MRI report from [facility] of the patient's lumbar spine shows ?severe central canal stenosis? at level L4-L5 Assessment & Plan Assessment & Plan (1) Lower back pain: Code(s): M54.50 - Low back pain, unspecified Category: Medical Plan Mr. Fitzpatrick presents with progressively worsening low back pain which radiates into both of his legs due to lumbar stenosis. Thus, I will arrange for the patient to have a follow-up appointment with our neurosurgery department. [facility]. The patient will follow-up as instructed. He will contact me prior to that appointment should his symptoms worsen in any way. Feel free to call me at any time should questions regarding his orthopedic management arise. I spent 20 minutes in reviewing the patient's records and imaging studies, seeing the patient and documenting in the medical record. Orders: Referrals Neuro Spine Referral M54.50 - Low back pain, unspecified Coding Level of Care Code Est Pt Level 3 (21798) Diagnoses Lower back pain M54.50
== END 2024-05-24 08:41 | disposition home or self-care (01) ==
PROVIDERS: PCP Nurse Practitioner Family; Visit Provider Orthopaedic Surgery
DX: M54.50 Low back pain, unspecified (principal)
CPT/HCPCS: 99213

== ENCOUNTER → 2024-05-24 08:08 | Outpatient (BNVA) | payer MEDICARE, SELFPAY | PROVIDERS: PCP Nurse Practitioner Family; Visit Provider Orthopaedic Surgery | DX: M48.061 Spinal stenosis, lumbar region without neurogenic claudication (principal) | CPT/HCPCS: 99212 ==

== ENCOUNTER 2024-06-01 09:51 | Outpatient (AMB) | payer MEDICARE, SELFPAY ==
--- NOTE | 2024-06-01 10:51 | HO.SPINEOV ---
Intake Visit Reasons: LBP Intake Note: Mr. Fitzpatrick is here today c/o cramping on both legs [employer] Required: No Allergies formaldehyde [FORMALDEHYDE] Allergy (Unknown, Verified 05/24/24 08:10) HIVES lanolin Allergy (Verified 05/24/24 08:10) Hives propylene glycol Allergy (Verified 05/24/24 08:10) Rash a steroid cream; he is not dimitry Allergy (Unknown, Uncoded 05/24/24 08:10) Unknown sand[employer] and subway Allergy (Unknown, Uncoded 05/24/24 08:10) Unknown Assessment & Plan Assessment & Plan (1) Spinal stenosis: Code(s): M48.00 - Spinal stenosis, site unspecified Category: Medical Plan Dear Dr. Pham, Thank you for referring Ponce to our office today. He is a pleasant 74-year-old male who comes in today with a chief complaint of a cramping sensation in his low back accompanied by pain in his bilateral posterior thighs. He states this has been ongoing since before his hip replacements but feels it is now more prominent. He has slowly lost the ability to ambulate for a significant period of time as the years have progressed. He is now to the point where he can only walk about 1 block before he needs to rest. He states that he stops because he feels tired, not so much that he feels like he has pain. He is able to complete ADLs, and is fairly functional. 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 In addition to this he is still able to do his own grocery shopping and go to the store, however he does state that he has to utilize a shopping cart to get around. He has been to physical therapy in the past for this issue, and feels as though it was not helpful for him and only exacerbated his symptoms. He has never attempted cortisone injections in the past and was inquiring about this during this visit. PMH: Muscle cramps, atopic dermatitis, osteoarthritis, osteoporosis, hypertension, vitamin-D deficiency, erectile dysfunction, history of skin cancer, hyperlipidemia, coronary artery disease s/p transcatheter aortic valve replacement (TAVR) using bioprosthesis in 2013. Social hx: Patient smokes 1/2 pack cigarettes per day. Reports no substance use. Medications: Celebrex, atorvastatin, tamsulosin, gabapentin, amlodipine, losartan, finasteride, aspirin, Tylenol. Allergies: NKDA. Physical exam: oPnce that is 5/5 strength in his upper and lower extremities. He has a left-sided hand deformity but still elicits fairly good bundle helper strength on the side with his remaining phalanges. No significant sensational deficits. The patient has bilateral absent patellar reflexes. The rest of his reflexes are 1+ hypoactive. He ambulates fairly well but does so slowly slightly hunched over. (-) clonus, (-) Boucher's, (-) bilateral straight leg raise. Imaging review: MRI of the lumbar spine completed at [facility] in April of this year shows severe L4-5 central canal and bilateral foraminal stenosis. There is also moderate L2-3 bilateral foraminal and central canal stenosis, and moderate L3-4 foraminal stenosis (central canal appears fairly patent at this level). In addition to this there is severe loss of disc height at L5-S1, however there is minimal nerve root impingement. Impression: Ponce is a pleasant 74-year-old male who comes in today with a chief complaint of a cramping sensation in his low back with pain in his bilateral posterior thighs. He states this has been ongoing for some time but has been exacerbated since his hip replacement. He is concerned that he is only able to walk about 1 block before needing to stop due to feeling a tiredness in his legs. Thankfully he is still fairly functional and is able to work full-time. He inquired about cortisone injections during this visit, as a possible solution for his current issue. I think this is reasonable and we will be sending him to be evaluated by our colleague Dr. Jones for possible L3-4, L4-5 epidural steroid injections. I informed him that if these injections are not helpful for him we may consider doing surgery for decompression. I encouraged him to continue following up with Dr. Pham for any hip related issues. Thank you for allowing us to care for your patient. The total time spent with this visit with this patient was 45 minutes reviewing history, physical exam, MRI imaging review, and implementation of treatment plan or further diagnostic testing Henry Yates MD,PhD [facility] Coding Level of Care Code New Pt Level 4 (49908) Diagnoses Spinal stenosis M48.00
== END 2024-06-01 11:23 | disposition home or self-care (01) ==
PROVIDERS: PCP Nurse Practitioner Family; Referring Provider Orthopaedic Surgery; Visit Provider Physician Assistant
DX: M48.00 Spinal stenosis, site unspecified (principal)
CPT/HCPCS: 99204

== ENCOUNTER → 2024-06-01 09:51 | Outpatient (BNVA) | payer MEDICARE, SELFPAY | PROVIDERS: PCP Nurse Practitioner Family; Visit Provider Physician Assistant | DX: M48.00 Spinal stenosis, site unspecified (principal) | CPT/HCPCS: 99202 ==

== ENCOUNTER 2024-06-29 11:39 | Emergency (ER) | payer MEDICARE, SELFPAY ==
[2024-06-29 11:42] VITALS: BP 143/59; PULSE 68; RESP 16; TEMP 36.4; O2SAT 96; BMI 32.5
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
[2024-06-29 14:00] VITALS: BP 138/50; PULSE 52; RESP 16; TEMP 36.8; O2SAT 95
--- NOTE | 2024-06-29 14:01 | MHC.EDTECH ---
non stick and gauze wrap applied to injury on left hand. patient tolerated well.
[2024-06-29 14:34] VITALS: BP 138/50; PULSE 52; RESP 16; TEMP 36.8; O2SAT 95
== END 2024-06-29 14:34 | disposition home or self-care (01) ==
PROVIDERS: Emergency Provider Emergency Medicine; PCP Nurse Practitioner Family
DX: S61.211A Laceration without foreign body of left index finger without damage to nail, initial encounter (principal); W27.8XXA Contact with other nonpowered hand tool, initial encounter; Y93.89 Activity, other specified; Y92.9 Unspecified place or not applicable; Y99.9 Unspecified external cause status
CPT/HCPCS: 12002; 99283

== ENCOUNTER 2024-08-24 09:26 | Outpatient (AMB) | payer MEDICARE, SELFPAY ==
[2024-08-24 09:57] VITALS: BP 132/56; PULSE 75; O2SAT 96; BMI 32.2
--- NOTE | 2024-08-24 09:57 | A.OFFVIS_ITS ---
Intake Vital Signs 08/24/24 09:57 Height 5 ft 9 in Weight 218 lb BMI 32.2 BP 132/56 L Blood Pressure Location Rt brachial Position Sitting Pulse 75 Pulse Source Pulse Oximeter Pulse Oximetry (%) 96 Oxygen Delivery Method Room Air Intake Visit Reasons: AWV G0439 Allergies formaldehyde [FORMALDEHYDE] Allergy (Unknown, Verified 08/24/24 10:42) HIVES lanolin Allergy (Verified 08/24/24 10:42) Hives propylene glycol Allergy (Verified 08/24/24 10:42) Rash a steroid cream; he is not dimitry Allergy (Unknown, Uncoded 08/24/24 10:42) Unknown [employer] and [employer] Allergy (Unknown, Uncoded 08/24/24 10:42) Unknown Medication List - Last Reconciled 08/24/24 by MOON Solorio acetaminophen 650 mg (2 x 325 mg) PO Q6H PRN 30 days amlodipine 10 mg PO ONCE 90 days aspirin 81 mg PO DAILY atorvastatin 40 mg PO BEDTIME 90 days [bedside commode As directed] cane As directed celecoxib 200 mg PO BID cholecalciferol (vitamin D3) 125 mcg PO DAILY docusate sodium 100 mg PO BID 30 days finasteride 5 mg PO BEDTIME gabapentin 300 mg PO TID 30 days losartan 100 mg PO DAILY magnesium oxide 400 mg PO DAILY methocarbamol 500 mg PO Q12H PRN nystatin 1 appl topical DAILY [Raised toliet seat As directed] walker Folding front wheeled walker Do you need a note to return to daycare/school/sports/work: No HPI AWV G0439 HPI Details Pt is here for an SWV. Denies fever, chills, and dizziness. [place] of care not filled out. PPP will be scanned in chart and copy will be given to pt. HPI Comments History of Present Illness Details HTN: Blood pressure is managed with amlodipine 10mg and losartan 100mg. Blood pressure is lower today, though pt denies any symptoms. Denies chest pain, shortness of breath, headache, dizziness, and blurred vision. Pt c/o sore throat. He also reports a cough and wheezing. Pt has smoked for many years. Will treat for bronchitis with zpak and prednisone. [facility] Medical History HTN (hypertension) Vaccination refused by patient Acute hypoxic respiratory failure Osteoarthritis of right hip Arthritis Enlarged prostate Cough Elevated cholesterol HTN (hypertension) Right shoulder pain Non-rheumatic aortic stenosis Severe aortic stenosis Diverticulosis Umbilical hernia Deformity of left hand Systolic murmur Smoker COPD (chronic obstructive pulmonary disease) Skin cancer Rectus diastasis Surgical History Hx of hand surgery H/O colonoscopy Status post transcatheter aortic valve replacement (TAVR) using bioprosthesis Aortic valve replaced S/P cardiac catheterization History of left hip replacement Family History Father Unknown family medical history Mother No problems noted. Social History Household Members: Spouse Housing: House Are you a primary care director rn to a significant other at home: No Do you presently have visiting nurse or other home services: No Alcohol intake: never Patient Tobacco Use Status: Current everyday Tobacco user Tobacco use type: Cigarette Cigarettes Per Day: 10 Years Smoked: 55 e-Cigarette/Vaping Use: Never Used Second Hand Smoke Exposure: No service: No Current occupational status: employed Cognitive needs: No Hearing needs: No Vision needs: Yes Questionnaire Medicare Wellness Checkup [age] What gender do you identify with?: male During the past 4 weeks, how much have you been bothered by emotional problems such as feeling anxious, depressed, irritable, sad or downhearted, and blue?: not at all During the past 4 weeks, has your physical & emotional health limited your social activities with family, friends, neighbors, or groups?: not at all During the past 4 weeks, how much bodily pain have you generally had?: moderate pain During the past 4 weeks, was someone available to help you if you needed & wanted help?: yes, as much as I wanted During the past 4 weeks, what was the hardest physical activity you could do for at least 2 minutes?: very heavy Can you get to places out of walking distance without help? (For eg., can you travel alone on buses, taxis or drive your car?): Yes Can you go shopping for groceries or clothes without someone's help?: Yes Can you prepare your own meals?: Yes Can you do your housework without help?: Yes Because of any health problems, do you need the help of another person with your personal care needs such as eating, bathing, dressing or getting around the house?: No Can you handle your own money without help?: Yes During the past 4 weeks, how would you rate your health in general?: fair During the past 4 weeks how have things been going for you?: pretty well Are you having difficulties driving your car?: no Do you always fasten your seat belt when you are in a car?: no During past 4 weeks, have you been bothered by the following: never: Falling or dizzy when standing up, Trouble eating well?, Teeth or denture problems? and Problems using the telephone? and always: Sexual problems? and Tiredness or fatigue? Have you fallen 2 or more times in the past year?: No Are you afraid of falling?: No Are you a smoker?: yes, and I might quit During the past 4 weeks, how many drinks of wine, beer, or other alcoholic beverages did you have?: 2-5 drinks per week Do you exercise for about 20 minutes 3 or more times a week?: yes, most of the time Have you been given information to help with the following?: no: Hazards in your house that might hurt you? and no: Keeping track of your medications? How often do you have trouble taking medicines the way you have been told to take them?: I always take medicine as prescribed How confident are you that you can control & manage most of your health problems?: very confident What is your race?: White Mini Mental State Exam (MMSE) Orientation What is the (year) (season) (date) (day) (month)?: year, season, date, day and month Where are we (state) (county) (town or city) (hospital) (floor)?: state, county, town or city, hospital/clinic and floor Registration Name of 3 unrelated objects clearly and slowly, then ask patient to repeat all 3 of them. (1st repeat determines score. Make sure they can repeat all three): object 1, object 2 and object 3 Attention & Calculation (CHOOSE ONE) Spell WORLD backwards (DLROW): 4 letters Recall Ask patient to repeat the 3 items from question #3.: object 1, object 2 and object 3 Language Show patient a wristwatch & ask what it is. Repeat for pencil.: watch and pencil Ask the patient to repeat the phrase 'No ifs, ands, or buts' after you.: correct Ask the patient to 'take a piece of paper with their right hand' 'fold paper in half' 'place paper on floor': take paper in right hand, fold paper in half and p lace paper on floor Print the sentence 'CLOSE YOUR EYES' on a piece. If patient actually closes eyes then score.: followed written direction Give patient a blank piece of paper & ask to write a sentence. Score if it contains a noun & verb.: sentence contains subject and verb Ask patient to copy figure of intersecting pentagons exactly. Score if all 10 angles & 2 intersects are included.: all 10 angles present & 2 are intersected Score Score: 29 Activity of Daily Living Bathing - sponge bath, tub bath or shower: receives no assistance (gets in/out by self, if usual bathing means Dressing - getting clothes from closets & drawers, including inner/outer garments & fasteners.: gets clothes & gets completely dressed without help Toileting - going to the 'toilet room' for urine/bowel elimination & cleaning self/arranging clothes: goes to toilet room, cleans self, arranges clothes without help Transfer: moves in & out of bed and chair without help (may use support object) Continence: controls urination/bowel movements completely by self Feeding: feeds self without help Total Score: 0 Information obtained from: patient Using telephone: independent Traveling: independent Shopping: independent Preparing meals: independent Housework: independent Taking medicine: independent Managing money: independent PHQ-9 Over the last 2 weeks, how often have you been bothered by any of the following problems? 1. Little interest or pleasure in doing things: not at all 2. Feeling down, depressed, or hopeless: not at all 3. Trouble falling or staying asleep, or sleeping too much: not at all 4. Feeling tired or having little energy: not at all 5. Poor appetite or overeating: not at all 6. Feeling bad about yourself - or that you are a failure or have let yourself or your family down: not at all 7. Trouble concentrating on things, such as reading the newspaper or watching television: not at all 8. Moving or speaking so slowly that other people could have noticed. Or the opposite - being so fidgety or restless that you have been moving around a lot more than usual: not at all 9. Thoughts that you would be better off or of hurting yourself in some way: not at all Total score: 0 Depression Screening Interpretation: Negative Depression Screening Done: Yes 24665 - PHQ-9 Billing: Yes Source: Developed by Drs. Stephen Campbell, Sarah Arzate, Johnny Song and colleagues, with an educational loly from [employer]. Review of Systems Const Reports as per HPI Physical Exam Vital Signs: Last Vital Signs Pulse 75 08/24/24 09:57 BP 132/56 L 08/24/24 09:57 Pulse Ox 96 08/24/24 09:57 Oxygen Delivery Method Room Air 08/24/24 09:57 BMI result Body Mass Index 32.2 Const General: cooperative Orientation/consciousness: patient oriented x3 HEENT Ears: TM's normal bilaterally Mouth: Normal oral and palatal mucosa present Throat: Yes posterior oropharynx normal Neck Neck: Yes no lymphadenopathy Resp Other: hoarse voice Effort & Inspection: normal respiratory effort Auscultation: wheezes Cardio Rate: regular rate Rhythm: regular rhythm Heart sounds: S1 normal heart sound present, S2 normal heart sound present and Murmur heart sound present systolic Neuro Other: - romberg, can tandem walk, can walk and turn, can rise from sitting to standing, passed whisper test General: patient oriented x3 Psych Appearance: grossly normal Mental Status: mental status grossly normal Speech and movement: Normal speech and movement present Affect: normal affect Attitude: cooperative Thought process: Normal thought process present Thought content: Normal thought content present Insight: Good insight present (Psych) Judgement: Good judgement present (Psych) Assessment & Plan Assessment & Plan (1) Screening for colon cancer: Code(s): Z12.11 - Encounter for screening for malignant neoplasm of colon Plan: Referred to GI (2) Screening PSA (prostate specific antigen): Code(s): Z12.5 - Encounter for screening for malignant neoplasm of prostate Plan: PSA ordered (3) Osteoporosis: Code(s): M81.0 - Age-related osteoporosis without current pathological fracture Plan: Bone density ordered (4) HTN (hypertension): Code(s): I10 - Essential (primary) hypertension Plan: BP is lower today, denies any dizziness (5) Encounter for subsequent annual wellness visit (AWV) in Medicare patient: Code(s): Z00.00 - Encounter for general adult medical examination without abnormal findings Plan: Information given to pt (6) Respiratory illness: Code(s): J98.9 - Respiratory disorder, unspecified Plan: Treating with zpak and prednisone Plan The patient agreed to the use of a nuclear medicine medical director for this encounter. Scribed for Efraín Perry T[employer] ONE TEACHER- by Rosa Charles nuclear medicine medical director, on 08/24/2024 at 10:20 EST. Orders: Orders XR DEXA axial skeleton Today M81.0 - Age-related osteoporosis without current pathological fracture Complete Blood Count Auto Diff Today I10 - Essential (primary) hypertension Prostate Specific Antigen Scr Today Z12.5 - Encounter for screening for malignant neoplasm of prostate Comprehensive [place]. Panel Fast Today I10 - Essential (primary) hypertension TSH reflex Free T4 Today I10 - Essential (primary) hypertension UA CC w/rflx Micro + Cult Today I10 - Essential (primary) hypertension Lipid Panel Today I10 - Essential (primary) hypertension Referrals Gastroenterology Referral Z12.11 - Encounter for screening for malignant neoplasm of colon Medications: New betamethasone dipropionate 0.05% 1 appl topical BID 14 days PRN 60 mL 1RF skin irritation azithromycin For 250 mg dose pack: take 500 mg today (day 1), then 250 mg for 4 days (days 2-5) PO 6 tabs 0RF prednisone 40 mg (2 x 20 mg) PO DAILY 5 days 10 tabs 0RF Quality Reporting (2019) Depression/Bipolar (159/160/161/177) PHQ-9: Total score: 0 Coding Level of Care Code Medicare Subsequent (G0439) Est Pt Level 3 (23585) Diagnoses Screening for colon cancer Z12.11 Screening PSA (prostate specific antigen) Z12.5 Osteoporosis M81.0 HTN (hypertension) I10 Encounter for subsequent annual wellness visit (AWV) in Medicare patient Z00.00 Respiratory illness J98.9 CPT Codes Advance Care Planning - Time spent: 1-15 minutes, on File ([id number]) Additional Codes PHQ-9 - 14938 - PHQ-9 Billing: Yes ([id number]) Advance Care Planning Forms completed: Health Care Proxy (scanned already), MOLST (form explained to pt, will fill out at home) and Living will (encouraged pt to get this done) Time spent: 1-15 minutes, on File Actual minutes spent: 15
== END 2024-08-24 14:51 | disposition home or self-care (01) ==
PROVIDERS: PCP Nurse Practitioner Family; Visit Provider Nurse Practitioner Family
DX: Z00.00 Encounter for general adult medical examination without abnormal findings (principal); I10 Essential (primary) hypertension; M81.0 Age-related osteoporosis without current pathological fracture; J98.9 Respiratory disorder, unspecified; Z12.11 Encounter for screening for malignant neoplasm of colon; Z12.5 Encounter for screening for malignant neoplasm of prostate

== ENCOUNTER → 2024-08-24 09:26 | Outpatient (BNVA) | payer MEDICARE, SELFPAY | PROVIDERS: PCP Nurse Practitioner Family; Visit Provider Nurse Practitioner Family | DX: Z00.00 Encounter for general adult medical examination without abnormal findings (principal); M81.0 Age-related osteoporosis without current pathological fracture; I10 Essential (primary) hypertension; J98.9 Respiratory disorder, unspecified | CPT/HCPCS: 96127; 99212 ==

== ENCOUNTER 2024-09-26 07:49 | Outpatient (REF) | payer MEDICARE, SELFPAY ==
--- OUTSIDE RECORDS SUMMARY | 2024-09-26 07:53 | XMS_ITS | Clinical Summary ---
Author Organization Unknown Care Team Providers Care Light Industrial Supervisor Name Role Phone JASMIN GRAIN WEIGHER, JAMES Unavailable Unavailable ARACELI RN, ELIANE Unavailable Unavailable KYLEE PT, SHANTAL Unavailable Unavailable IVANIA PAINT SPRAY INSPECTOR, MODE Unavailable Unavailable STANISLAV MURRELLN, SOCORRO Unavailable Unavailabl e SPAFFORD OT, TEMO Unavailable Unavailable CONDINO LAURYN/SARKAR, SUNSHINE Unavailable Unav ailable Payers Payer Name Policy Type Policy Number Effective Date Expira tion Date MEDICARE.NGS.PDGM [id number] Problems Condition Name Condition Details Condition Category Status Onset Date Resolution Date Last Treatment Date Treating Clinician Comments AFTERCARE FOLLOWING JOINT REPLACEMENT SURGERY Active 11-15 00:00: 00 ESSENTIAL (PRIMARY) HYPERTENSION Active 11-15 00:00: 00 NONRHEUMATIC AORTIC (VALVE) STENOSIS WITH INSUFFICIENC Y Active 11-15 00:00: 00 CHRONIC OBSTRUCTIVE PULMONARY DISEASE, UNSPECIFIED Active 11-15 00:00: 00 DVRTCLOS OF INTEST, PART UNSP, 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 11-15 00:00: 00 OTHER ASTHMA Active 11-15 00:00: 00 BENIGN PROSTATIC HYPERPLASIA WITHOUT LOWER URINRY TRACT SYMP Active 11-15 00:00: 00 ELEVATED WHITE BLOOD CELL COUNT, UNSPECIFIED Active 11-15 00:00: 00 ALLERGIC CONTACT DERMATITIS DUE TO OTHER CHEMICAL PRODUCTS Active 11-15 00:00: 00 NICOTINE DEPENDENCE, UNSPECIFIED, UNCOMPLICATE D Active 11-15 00:00: 00 PRESENCE OF ARTIFICIAL HIP JOINT, BILATERAL Active 11-15 00:00: 00 HISTORY OF FALLING Active 11-15 00:00: 00 CUSTOM DRESSMAKER (CURRENT) USE OF ASPIRIN Active 11-15 00:00: 00 CUSTOM DRESSMAKER (CURRENT) USE OF OPIATE ANALGESIC Active 11-15 00:00: 00 FPC (CURRENT) USE OF NON-STEROIDA L NON-INFLAM (NSAID) Active 11-15 00:00: 00 PRESENCE OF OTHER HEART-VALVE REPLACEMENT Active 11-15 00:00: 00 ACQUIRED ABSENCE OF LEFT FINGER(S) Active 11-15 00:00: 00 Allergies, Adverse Reactions, Alerts Allergy Name Allergy Type Status Severity Reaction(s) Onset Date Inactive Date Treating Clinician Comments AUGMENTIN Propensity to adverse reactions Active 11-15 08:59: 04 PROPYLENE GLYCOL Propensity to adverse reactions Active 11-15 08:59: 24 FORMALDEHYDE Propensity to adverse reactions Active 11-15 08:59: 36 LANOLIN Propensity to adverse reactions Active 11-15 08:59: 55 Medications Ordered Medication Name Filled Medication Name Start Date Stop Date Current Medication? Ordering Clinician Indication Dosage Frequency Signature (SIG) Comments Components losartan 100 mg tablet 11-09 00:00: 00 11-15 00:00 :00 No [id number] Per instruc tions Per instructio ns (route: oral) Med Classific ation: Cardiovas cular Therapy Agents oxycodone 5 mg tablet 10-28 00:00: 00 11-15 00:00 :00 No [id number] Per instruc tions Per instructio ns (route: oral) Med Classific ation: Analgesic , Anti-infl ammatory or Antipyret ic amlodipine 5 mg tablet 11-15 00:00: 00 Yes [id number] HTN 1 tablet 2 TIMES DAILY 1 tablet 2 TIMES DAILY (route: oral) Med Classific ation: Cardiovas cular Therapy Agents aspirin 81 mg tablet,kei yed release 11-15 00:00: 00 11-25 23:59 :00 No [id number] BLOOD THINNER 1 tablet 2 TIMES DAILY 1 tablet 2 TIMES DAILY (route: oral) Med Classific ation: Hematolog ical Agents aspirin 81 mg tablet,kei yed release 16 00:00: 00 Yes [id number] BLOOD THINNER 1 tablet DAILY 1 tablet DAILY (route: oral) Med Classific ation: Hematolog ical Agents atorvastati n 40 mg tablet 2-05 00:00: 00 Yes [id number] HIGH CHOLESTEROL 1 tablet DAILY 1 tablet DAILY (route: oral) Med Classific ation: Cardiovas cular Therapy Agents celecoxib 200 mg capsule 2- 00:00: 00 Yes [id number] DISCOMFORT 1 capsule 2 TIMES DAILY 1 capsule 2 TIMES DAILY (route: oral) Med Classific ation: Analgesic , Anti-infl ammatory or Antipyret ic cholecalcif tiff (vitamin D3) 25 mcg (1,000 unit) tablet 2- 00:00: 00 Yes [id number] SUPPLEMENT 2 tablet DAILY 2 tablet DAILY (route: oral) Med Classific ation: Electroly te Balance-N utritiona l Products Colace 100 mg capsule 2- 00:00: 00 Yes [id number] STOOL SOFTENER 1 capsule 2 TIMES DAILY 1 capsule 2 TIMES DAILY (route: oral) Med Classific ation: Gastroint estinal Therapy Agents finasteride 5 mg tablet 2- 00:00: 00 Yes [id number] BPH 1 tablet DAILY 1 tablet DAILY (route: oral) Med Classific ation: Genitouri nary Therapy gabapentin 300 mg capsule 2- 00:00: 00 Yes [id number] DISCOMFORT 1 capsule 3 TIMES DAILY 1 capsule 3 TIMES DAILY (route: oral) Med Classific ation: Central Nervous System Agents losartan 100 mg tablet 2- 00:00: 00 Yes [id number] HEART DISEASE 1 tablet DAILY 1 tablet DAILY (route: oral) Med Classific ation: Cardiovas cular Therapy Agents methocarbam ol 500 mg tablet 2- 00:00: 00 Yes [id number] MUSCLE SPASM 1 tablet 3 TIMES DAILY 1 tablet 3 TIMES DAILY (route: oral) Med Classific ation: Locomotor System oxycodone 5 mg tablet 2-05 00:00: 00 Yes [id number] PAIN 1 tablet EVERY 4 HOURS 1 tablet EVERY 4 HOURS (route: oral) Med Classific ation: Analgesic , Anti-infl ammatory or Antipyret ic tamsulosin 0.4 mg capsule 11-15 00:00: 00 Yes [id number] BPH 1 capsule DAILY 1 capsule DAILY (route: oral) Med Classific ation: Genitouri nary Therapy Tylenol 325 mg tablet 11-15 00:00: 00 Yes [id number] DISCOMFORT 2 tablet 2 TIMES DAILY 2 tablet 2 TIMES DAILY (route: oral) Med Classific ation: Analgesic , Anti-infl ammatory or Antipyret ic Vital Signs Vital Name Observation Time Observation Value Commen ts Temperature 2023-12-13 13:18:00.000 97.5 [degF] Temperature 2023-12-07 08:39:00.000 98 [degF] Temperature 2023-11-29 08:36:00.000 98.4 [degF] Temperature 2023-11-25 13:33:00.000 97.8 [degF] Temperature 2023-11-24 14:43:00.000 98 [degF] Temperature 2023-11-23 09:56:00.000 97.9 [degF] Temperature 2023-11-22 10:24:00.000 97.7 [degF] Temperature 2023-11-17 12:20:00.000 97.7 [degF] Temperature 2023-11-15 13:31:00.000 97.8 [degF] BMI (%) 2023-11-15 13:31:00.000 31 kg/m2 Height 2023-11-15 13:31:00.000 69 [in_us] Pulse 2023-12-13 13:18:00.000 73 /min Pulse 2023-12-07 08:39:00.000 82 /min Pulse 2023-11-29 08:36:00.000 64 /min Pulse 2023-11-25 13:33:00.000 70 /min Pulse 2023-11-24 14:43:00.000 67 /min Pulse 2023-11-23 09:56:00.000 60 /min Pulse 2023-11-22 10:24:00.000 62 /min Pulse 2023-11-17 12:20:00.000 61 /min Pulse 2023-11-15 13:31:00.000 64 /min O2 Saturation (%) 2023-12-13 13:18:00.000 95 % O2 Saturation (%) 2023-12-07 08:41:00.000 94 % O2 Saturation (%) 2023-11-29 08:36:00.000 95 % O2 Saturation (%) 2023-11-24 14:43:00.000 96 % O2 Saturation (%) 2023-11-23 09:56:00.000 97 % O2 Saturation (%) 2023-11-22 10:25:00.000 97 % O2 Saturation (%) 2023-11-17 12:21:00.000 96 % Respirations 2023-12-13 13:18:00.000 18 /min Respirations 2023-12-07 08:39:00.000 18 /min Respirations 2023-11-29 08:36:00.000 18 /min Respirations 2023-11-25 13:33:00.000 18 /min Respirations 2023-11-24 14:43:00.000 16 /min Respirations 2023-11-23 09:56:00.000 16 /min Respirations 2023-11-22 10:24:00.000 18 /min Respirations 2023-11-17 12:20:00.000 17 /min Respirations 2023-11-15 13:31:00.000 18 /min Weight (lbs) 2023-11-15 13:31:00.000 211 [lb_av] Systolic Blood Pressure 2023-12-13 13:18:00.000 114 mm [Hg] Systolic Blood Pressure 2023-12-07 08:39:00.000 140 mm [Hg] Systolic Blood Pressure 2023-11-29 08:36:00.000 136 mm [Hg] Systolic Blood Pressure 2023-11-25 13:33:00.000 142 mm [Hg] Systolic Blood Pressure 2023-11-24 14:43:00.000 128 mm [Hg] Systolic Blood Pressure 2023-11-23 09:56:00.000 128 mm [Hg] Systolic Blood Pressure 2023-11-22 10:24:00.000 120 mm [Hg] Systolic Blood Pressure 2023-11-17 12:20:00.000 126 mm [Hg] Systolic Blood Pressure 2023-11-15 13:31:00.000 134 mm [Hg] Diastolic Blood Pressure 2023-12-13 13:18:00.000 58 mm [Hg] Diastolic Blood Pressure 2023-12-07 08:39:00.000 70 mm [Hg] Diastolic Blood Pressure 2023-11-29 08:36:00.000 52 mm [Hg] Diastolic Blood Pressure 2023-11-25 13:33:00.000 62 mm [Hg] Diastolic Blood Pressure 2023-11-24 14:43:00.000 52 mm [Hg] Diastolic Blood Pressure 2023-11-23 09:56:00.000 66 mm [Hg] Diastolic Blood Pressure 2023-11-22 10:24:00.000 56 mm [Hg] Diastolic Blood Pressure 2023-11-17 12:20:00.000 62 mm [Hg] Diastolic Blood Pressure 2023-11-15 13:31:00.000 70 mm [Hg] Plan of Treatment Planned Activity Planned Date Details Comments Future Scheduled Test PHYSICAL T HERAPIST TO EVALUATE FOR STRENGTHENING [code = PHYSICAL THERAPIST TO EVALUATE FOR STRENGTHENING ] Future Scheduled Test MEDICATION MANAGEMENT; REGISTERED NURSE/LICENSED PRACTICAL NURSE TO REVIEW MEDICATIONS FOR INTERACTIONS, EFFECTIVENESS OF DRUG THERAPY, AND SIGNS/SYMPTOMS OF ADVERSE REACTIONS. MAY INSTRUCT AND REINFORCE MEDICATION TEACHING RELATED TO THE USE OF MEDICATIONS, DOSAGE, FREQUENCY, PURPOSE, SIDE EFFECTS, AND TO REPORT COMPLICATIONS. [code = MEDICATION MANAGEMENT; REGISTERED NURSE/LICENSED PRACTICAL NURSE TO REVIEW MEDICATIONS FOR INTERACTIONS, EFFECTIVENESS OF DRUG THERAPY, AND SIGNS/SYMPTOMS OF ADVERSE REACTIONS. MAY INSTRUCT AND REINFORCE MEDICATION TEACHING RELATED TO THE USE OF MEDICATIONS, DOSAGE, FREQUENCY, PURPOSE, SIDE EFFECTS, AND TO REPORT COMPLICATIONS.] Future Scheduled Test RESPIRATOR Y SYSTEM MANAGEMENT; REGISTERED NURSE TO ASSESS AND TEACH/LICENSED PRACTICAL NURSE TO OBSERVE AND TEACH RELATED TO ALTERED RESPIRATORY STATUS TO MINIMIZE COMPLICATIONS AND REDUCE HOSPITALIZATION. [code = RESPIRATORY SYSTEM MANAGEMENT; REGISTERED NURSE TO ASSESS AND TEACH/LICENSED PRACTICAL NURSE TO OBSERVE AND TEACH RELATED TO ALTERED RESPIRATORY STATUS TO MINIMIZE COMPLICATIONS AND REDUCE HOSPITALIZATION.] Future Scheduled Test FALL REDUC TION MANAGEMENT; REGISTERED NURSE TO ASSESS AND TEACH/LICENSED PRACTICAL NURSE TO OBSERVE AND TEACH ON EDUCATION AND INTERVENTION TO IDENTIFY FALL RISK FACTORS SUCH MEDICATIONS THAT MAY CAUSE DIZZINESS, CHRONIC DISEASES, PSYCHOLOGICAL FACTORS, AND EMPOWER/EDUCATE PATIENT/CAREGIVER TO MINIMIZE FALL RISK. [code = FALL REDUCTION MANAGEMENT; REGISTERED NURSE TO ASSESS AND TEACH/LICENSED PRACTICAL NURSE TO OBSERVE AND TEACH ON EDUCATION AND INTERVENTION TO IDENTIFY FALL RISK FACTORS SUCH MEDICATIONS THAT MAY CAUSE DIZZINESS, CHRONIC DISEASES, PSYCHOLOGICAL FACTORS, AND EMPOWER/EDUCATE PATIENT/CAREGIVER TO MINIMIZE FALL RISK. ] Future Scheduled Test RN TO OBSE RVE, ASSESS, EVALUATE, AND DEVELOP AN INDIVIDUALIZED PLAN OF CARE. AGENCY MAY ACCEPT ORDERS FROM CONSULTING PHYSICIANS . REGISTERED NURSETO OBSERVE AND ASSESS/LICENSED PRACTICAL NURSE TO OBSERVE FOR RISK FOR FALLS AND INSTRUCT IN FALL PREVENTION, HOME SAFETY, MEDICATION MANAGEMENT, INFECTION PREVENTION, AND NUTRITION MANAGEMENT. REGISTERED NURSE/LICENSED PRACTICAL NURSE MAY PERFORM O2 SATURATION LEVEL ON ADMISSION AND PRN FOR FOR RN TO ASSESS/DRY ROOM ATTENDANT TO OBSERVE PATIENT, WITH NOTIFICATION TO THE PHYSICIAN IF SATURATION IS 90% IN THE ABSENCE OF MORE SPECIFIC PARAMETERS FROM THE PHYSICIAN. AGENCY MAY PERFORM A RESUMPTION OF CARE VISIT FOLLOWING ANY HOSPITAL ADMISSION. REGISTERED NURSE/LICENSED PRACTICAL NURSE TO MONITOR CO-MORBID CONDITIONS LISTED ON THE PLAN OF CARE AND ANY NEW CONDITIONS THAT PRESENT THEMSELVES DURING THIS EPISODE TO IDENTIFY CHANGES AND INTERVENE TO MINIMIZE COMPLICATIONS. [code = RN TO OBSERVE, ASSESS, EVALUATE, AND DEVELOP AN INDIVIDUALIZED PLAN OF CARE. AGENCY MAY ACCEPT ORDERS FROM CONSULTING PHYSICIANS . REGISTERED NURSETO OBSERVE AND ASSESS/LICENSED PRACTICAL NURSE TO OBSERVE FOR RISK FOR FALLS AND INSTRUCT IN FALL PREVENTION, HOME SAFETY, MEDICATION MANAGEMENT, INFECTION PREVENTION, AND NUTRITION MANAGEMENT. REGISTERED NURSE/LICENSED PRACTICAL NURSE MAY PERFORM O2 SATURATION LEVEL ON ADMISSION AND PRN FOR FOR RN TO ASSESS/DRY ROOM ATTENDANT TO OBSERVE PATIENT, WITH NOTIFICATION TO THE PHYSICIAN IF SATURATION IS 90% IN THE ABSENCE OF MORE SPECIFIC PARAMETERS FROM THE PHYSICIAN. AGENCY MAY PERFORM A RESUMPTION OF CARE VISIT FOLLOWING ANY HOSPITAL ADMISSION. REGISTERED NURSE/LICENSED PRACTICAL NURSE TO MONITOR CO-MORBID CONDITIONS LISTED ON THE PLAN OF CARE AND ANY NEW CONDITIONS THAT PRESENT THEMSELVES DURING THIS EPISODE TO IDENTIFY CHANGES AND INTERVENE TO MINIMIZE COMPLICATIONS.] Future Scheduled Test PAIN MANAG EMENT; REGISTERED NURSE TO ASSESS AND TEACH/LICENSED PRACTICAL NURSE TO OBSERVE AND TEACH AND PROVIDE EDUCATION ON PAIN MANAGEMENT TECHNIQUES. [code = PAIN MANAGEMENT; REGISTERED NURSE TO ASSESS AND TEACH/LICENSED PRACTICAL NURSE TO OBSERVE AND TEACH AND PROVIDE EDUCATION ON PAIN MANAGEMENT TECHNIQUES.] Future Scheduled Test MONITOR RI GHT HIP INCISION FOR SIGNS AND SYMPTOMS OF INFECTION. [code = MONITOR RIGHT HIP INCISION FOR SIGNS AND SYMPTOMS OF INFECTION. ] Future Scheduled Test RISK FOR H OSPITALIZATION; REGISTERED NURSE TO ASSESS /TEACH, LICENSED PRACTICAL NURSE TO OBSERVE/TEACH PATIENT/CAREGIVER ON RISK FOR HOSPITALIZATION/EMERGENCY ROOM VISITS, TEACH SIGNS AND SYMPTOMS THAT PUT PATIENT AT RISK, WHEN TO NOTIFY NURSE/PHYSICIAN OF COMPLICATIONS/DECLINE, AND WHEN TO CALL 911. [code = RISK FOR HOSPITALIZATION; REGISTERED NURSE TO ASSESS /TEACH, LICENSED PRACTICAL NURSE TO OBSERVE/TEACH PATIENT/CAREGIVER ON RISK FOR HOSPITALIZATION/EMERGENCY ROOM VISITS, TEACH SIGNS AND SYMPTOMS THAT PUT PATIENT AT RISK, WHEN TO NOTIFY NURSE/PHYSICIAN OF COMPLICATIONS/DECLINE, AND WHEN TO CALL 911.] Future Scheduled Test CARDIOVASC ULAR SYSTEM; REGISTERED NURSE TO ASSESS /TEACH, LICENSED PRACTICAL NURSE TO OBSERVE/TEACH RELATED TO ALTERED CARDIOVASCULAR STATUS TO MINIMIZE COMPLICATIONS AND REDUCE HOSPITALIZATION. [code = CARDIOVASCULAR SYSTEM; REGISTERED NURSE TO ASSESS /TEACH, LICENSED PRACTICAL NURSE TO OBSERVE/TEACH RELATED TO ALTERED CARDIOVASCULAR STATUS TO MINIMIZE COMPLICATIONS AND REDUCE HOSPITALIZATION.] Future Scheduled Test AGENCY MAY PERFORM A RESUMPTION OF CARE VISIT FOLLOWING ANY HOSPITAL ADMISSION. PHYSICAL THERAPY TO EVALUATE, ASSESS AND MONITOR, PROVIDE SKILLED THERAPEUTIC INTERVENTION, ACTIVITY, EDUCATION, AND TRAINING TO ADDRESS: TRANSFER TRAINING (PT) GAIT TRAINING (PT) THERAPEUTIC EXERCISES (PT) STAIR TRAINING (PT) OXYGEN SATURATION (PT). NOTIFY MD IF 02SATS BELOW 90% AFTER 10 MIN OF REST. PAIN MANAGEMENT (PT) PHYSICAL THERAPY TO OBSERVE WOUND/INCISION AND/OR INTACT DRESSING ON RIGHT HIP AND REPORT EARLY SIGNS AND SYMPTOMS OF WOUND DETERIORATION, COMPLICATIONS, OR INFECTION TO RN CLINICAL DOLLYMAN AND/OR PHYSICIAN. ORTHOPEDIC SURGICAL AFTERCARE (PT) MAY TEACH PATIENT APPLICATION OF CRYOTHERAPY FOR PAIN AND/OR SWELLING UP TO 20 MIN AT A TIME OVER INCISION/JOINT HIP REPLACEMENT SELF-MANAGEMENT (PT) IDENTIFY FALL RISK FACTORS AND ESTABLISH HOME EXERCISE PROGRAM TO MINIMIZE FALL RISK. MAY TEACH THE PATIENT FLOOR RECOVERY WHEN CLINICALLY APPROPRIATE (PT) [code = AGENCY MAY PERFORM A RESUMPTION OF CARE VISIT FOLLOWING ANY HOSPITAL ADMISSION. PHYSICAL THERAPY TO EVALUATE, ASSESS AND MONITOR, PROVIDE SKILLED THERAPEUTIC INTERVENTION, ACTIVITY, EDUCATION, AND TRAINING TO ADDRESS: TRANSFER TRAINING (PT) GAIT TRAINING (PT) THERAPEUTIC EXERCISES (PT) STAIR TRAINING (PT) OXYGEN SATURATION (PT). NOTIFY MD IF 02SATS BELOW 90% AFTER 10 MIN OF REST. PAIN MANAGEMENT (PT) PHYSICAL THERAPY TO OBSERVE WOUND/INCISION AND/OR INTACT DRESSING ON RIGHT HIP AND REPORT EARLY SIGNS AND SYMPTOMS OF WOUND DETERIORATION, COMPLICATIONS, OR INFECTION TO RN CLINICAL DOLLYMAN AND/OR PHYSICIAN. ORTHOPEDIC SURGICAL AFTERCARE (PT) MAY TEACH PATIENT APPLICATION OF CRYOTHERAPY FOR PAIN AND/OR SWELLING UP TO 20 MIN AT A TIME OVER INCISION/JOINT HIP REPLACEMENT SELF-MANAGEMENT (PT) IDENTIFY FALL RISK FACTORS AND ESTABLISH HOME EXERCISE PROGRAM TO MINIMIZE FALL RISK. MAY TEACH THE PATIENT FLOOR RECOVERY WHEN CLINICALLY APPROPRIATE (PT)] Future Scheduled Test OCCUPATION AL THERAPY EVALUATION PERFORMED. NO ADDITIONAL VISITS REQUIRED. PROVIDED SKILLED INTERVENTION INCLUDING EDUCATION ON WHERE TO PURCHASE LE ADAPTIVE DRESSING EQUIPMENT AND ENERGY CONSERVATION TECHNIQUES AND WORK SIMPLIFICATION TECHNIQUES WITH ADAPTIVE METHODS. [code = OCCUPATIONAL THERAPY EVALUATION PERFORMED. NO ADDITIONAL VISITS REQUIRED. PROVIDED SKILLED INTERVENTION INCLUDING EDUCATION ON WHERE TO PURCHASE LE ADAPTIVE DRESSING EQUIPMENT AND ENERGY CONSERVATION TECHNIQUES AND WORK SIMPLIFICATION TECHNIQUES WITH ADAPTIVE METHODS. ] Goal 2023-12-13 Patient Goal - WORK AGAIN Goal Provider Goal - Goal Provider Goal - PATIENT/CAREGIVER TO VERBALIZE, AND CONSISTENTLY DEMONSTRATE EFFECTIVE, SAFE MANAGEMENT OF MEDICATION INCLUDING KNOWLEDGE OF EFFECTIVENESS, POTENTIAL SIDE EFFECTS AND DRUG REACTIONS AND WHEN TO CONTACT THE APPROPRIATE CARE PROVIDER. PATIENT/CAREGIVER WILL BE ABLE TO VERBALIZE UNDERSTANDING OF MEDICATION REGIMEN AND ACCURATELY TAKE MEDICATIONS PRESCRIBED WITHOUT ADVERSE EFFECTS BY EOE Goal Provider Goal - PATIENT / CAREGIVER WILL VERBALIZE/DEMONSTRATE UNDERSTANDING OF MEASURES TO MANAGE ALTERED RESPIRATORY STATUS BY END OF EPISODE. Goal Provider Goal - PATIENT/CAREGIVER ABLE TO IDENTIFY FALL RISK FACTORS AND IMPLEMENT STRATEGIES TO MINIMIZE FALL RISK. PATIENT/CAREGIVER WILL VERBALIZE/DEMONSTRATE AN ABILITY TO ADHERE TO FALL REDUCTION SELF MANAGEMENT AND LIFE-STYLE CHANGES AT DISCHARGE. PERSONAL GOAL(S) STATED BY PATIENT/CAREGIVER WILL BE MET BY EOE Goal Provider Goal - A PLAN OF CARE WILL BE ESTABLISHED THAT MEETS THE PATIENTS NEEDS. PATIENT WILL DEMONSTRATE OXYGEN SATURATION WITHIN NORMAL LIMITS OR PATIENTS OPTIMAL LEVEL ESTABLISHED BY THE PHYSICIAN THROUGHOUT CARE. CHANGES TO CO-MORBID CONDITIONS AND ANY NEW CONDITIONS WILL BE IDENTIFIED AND REPORTED TO THE PHYSICIAN. Goal Provider Goal - PATIENT / CAREGIVER WILL VERBALIZE / DEMONSTRATE UNDERSTANDING OF PAIN CONTROL MEASURES BY EOE Goal Provider Goal - PATIENT / CAREGIVER WILL VERBALIZE / DEMONSTRATE ABILITY TO PERFORM WOUND CARE. WOUND STATUS WILL IMPROVE EVIDENCED BY A DECREASE IN SIZE, DRAINAGE, ABSENCE OF INFECTION, AND DECREASED PAIN BY EOE. Goal Provider Goal - PATIENT/CAREGIVER WILL VERBALIZE UNDERSTANDING OF SIGNS AND SYMPTOMS THAT PUT THE PATIENT AT RISK FOR HOSPITALIZATION /EMERGENCY ROOM VISITS, WHEN TO NOTIFY NURSE/PHYSICIAN OF COMPLICATIONS/DECLINE AND WHEN TO CALL 911. Goal Provider Goal - PATIENT / CAREGIVER WILL VERBALIZE/DEMONSTRATE UNDERSTANDING OF MEASURES TO MANAGE ALTERED CARDIOVASCULAR STATUS BY EOE. Goal Provider Goal - PT STG: PATIENT WILL DEMONSTRATE IMPROVED TRANSFERS FROM SBA TO INDEPENDENT WITH UE ASSIST WITHIN 3 WEEKS PT LTG: PATIENT WILL DEMONSTRATE IMPROVED AMBULATION FROM SBA TO INDEPENDENT WITH CANE WITHIN 4 WEEKS PT LTG: PATIENT WILL DEMONSTRATE REDUCED FALL RISK EVIDENCED BY IMPROVED SELF- SELECTED WALKING SPEED (SSWS CUT SCORE 0.6 TO 0.9 INDICATES MODERATE FALL RISK, 0.6 M/S INDICATES HIGH FALL RISK) FROM 0.7M/SEC TO 1.1M/SEC WITHIN 4 WEEKS PT STG: PATIENT WILL DEMONSTRATE INDEPENDENCE WITH LOWER EXTREMITY HOME EXERCISE PROGRAM WITHIN 3 WEEKS PT LTG: PATIENT WILL DEMONSTRATE IMPROVED FUNCTIONAL STRENGTH EVIDENCED BY FIVE TIMES SIT TO STAND TEST (CUT SCORE >12 SECONDS INDICATES AN INCREASED FALL RISK) IMPROVING FROM 24 SECONDS TO 12 SECONDS WITHIN 4 WEEKS PT LTG: PATIENT WILL DEMONSTRATE INCREASED STRENGTH OF RIGHT LE FROM 3-/5 TO 4+/5 WITHIN 4 WEEKS IN ORDER TO IMPROVE SAFETY AND STABILITY WITH GAIT AND STAIRS PT LTG: PATIENT WILL DEMONSTRATE IMPROVED ABILITY TO SAFELY NEGOTIATE STAIRS FROM CGA TO INDEPENDENT WITH CANE AND RAIL WITHIN 4 WEEKS PATIENT WILL MAINTAIN OXYGEN SATURATION WITHIN PHYSICIAN ORDERED PARAMETERS THROUGHOUT EPISODE OF CARE PT GOAL: PATIENT/CAREGIVER WILL VERBALIZE UNDERSTANDING OF PAIN MANAGEMENT BY END OF EPISODE. THE PATIENT WILL NOT DEMONSTRATE ANY WOUND COMPLICATIONS DURING THE EPISODE OF CARE. PATIENT WILL DEMONSTRATE NORMAL HEALING FOLLOWING SURGERY WITH NO COMPLICATIONS BY END OF EPISODE. PT GOAL: PATIENT WILL DEMONSTRATE OPTIMAL OUTCOMES INCLUDING INCREASED ROM AND STRENGTH WITH NO COMPLICATIONS FOLLOWING JOYCE BY END OF EPISODE. PATIENT/CAREGIVER WILL DEMONSTRATE ADHERENCE TO FALL REDUCTION SELF MANAGEMENT TO MINIMIZE FALL BY END OF EPISODE. Goal Provider Goal - Reason for Visit [facility] Encounters Start Date/Time End Date/Time Encounter Type Admission Type Attending Clinicians Care Facility Care Department Encounter ID Discharge Date Discharge Status Discharge Condition Discharge Reason Percent Goals Met 2023-11-15 00:00:00 2023-12-13 00:00:00 Outpatient NEW ADMISSION [facility] [id number] 2023-12-13 00:00:00 DISCHARGE TO HOME OR SELF CARE [facility] HH ONLY - OUT PATIENT [id number]
[2024-09-26 09:59] LABS: MANUAL DIFF FLAG NO
[2024-09-26 10:06] LABS: Appearance Urine Clear; Color Urine Yellow; Glucose Urine UA Negative (Negative); Leukocyte Esterase Urine Negative (Negative); Nitrite Urine Negative (Negative); PH 5.5 (5.0-9.0); Urine Blood Negative (Negative); Urine Ketones Negative (Negative); Urine Protein Negative (Neg-Trace)
[2024-09-26 10:11] LABS: Basophils Absolute Auto 0.1 X10*3/uL (0.0-0.2); Eosinophils Absolute Auto 0.4 X10*3/uL (0.0-0.4); Eosinophils Percent Auto 6.5 % (0-4); Hematocrit 41.3 % (42.0-52.0); Hemoglobin 13.5 g/dl (14.0-18.0); Imm Gran Abs Auto 0.02 X10*3/uL (0.00-0.03); Imm Gran Pct Auto 0.3 % (0.0-0.4); Lymphocytes Absolute Auto 1.8 X10*3/uL (1.2-4.9); Lymphocytes Percent Auto 31.3 % (20-40); Mean Corpuscular HGB Conc 32.7 g/dl (31.0-36.0); Mean Corpuscular Volume 88.8 fL (80.0-98.0); Mean Platelet Volume 11.2 fL (9.4-12.4); Monocytes Absolute Auto 0.9 X10*3/uL (0.1-1.2); Monocytes Percent Auto 14.9 % (2-11); Neutrophils Absolute Auto 2.7 x10*3/uL (2.0-8.3); Platelet Count 167 X10*3/uL (160-400); Red Blood Count 4.65 X10*6/uL (4.60-5.80); Red Cell Distribution Width 13.2 % (11.0-16.0); White Blood Count 5.9 X10*3/uL (4.8-10.8)
[2024-09-26 10:39] LABS: Anion Gap 8 (12-20); Blood Urea Nitrogen 24 mg/dL (9-16); Carbon Dioxide 29 mmol/L (22-29); Chloride 108 mmol/L (96-108); Potassium 4.3 mmol/L (3.3-5.1); Sodium 141 mmol/L (135-145)
[2024-09-26 10:40] LABS: Alanine Aminotransferase 22 U/L (0-40); Albumin Level 4.1 g/dL (3.5-5.0); Alkaline Phosphatase 60 U/L (39-117); Aspartate Amino Transferase 28 U/L (5-37); Bilirubin Total 0.7 mg/dL (0.0-1.0); Calcium 9.5 mg/dL (8.4-10.2); Cholesterol 152 mg/dL (<200); Estimated Glomerular Filt Rate > 60; Glucose Fasting 95 mg/dL (60-99); HDL Cholesterol 48 mg/dL (>40); LDL Cholesterol Calculated 89 mg/dL (<100); Total Protein 6.5 g/dL (6.5-8.0); Triglycerides 79 mg/dL (<150)
[2024-09-26 10:42] LABS: TSH reflex Free T4 2.86 uIU/mL (0.32-4.0)
== END 2024-09-26 07:50 | disposition home or self-care (01) ==
LOC: HO.HMGCLDS 07:49
PROVIDERS: PCP Nurse Practitioner Family; Visit Provider Nurse Practitioner Family
DX: I10 Essential (primary) hypertension (principal); Z12.5 Encounter for screening for malignant neoplasm of prostate
CPT/HCPCS: 36415; 80053; 80061; 81003; 84153; 84443; 85025

== ENCOUNTER 2024-09-30 09:06 | Outpatient (REF) | payer MEDICARE, SELFPAY ==
[2024-09-30 12:41] LABS: Influenza A PCR POSITIVE (Negative); Influenza B PCR NEGATIVE (Negative); Resp Syncy Virus RNA Qual PCR NEGATIVE (Negative); SARS COV2 PCR INHOUSE NEGATIVE (Negative)
== END 2024-09-30 09:07 | disposition home or self-care (01) ==
LOC: HO.CHCLNP 09:06
PROVIDERS: PCP Nurse Practitioner Family; Visit Provider Family Medicine
DX: Z13.89 Encounter for screening for other disorder (principal)
CPT/HCPCS: 0241U; 99212

== ENCOUNTER 2024-09-30 09:06 | Outpatient (AMB) | payer MEDICARE, SELFPAY ==
--- OUTSIDE RECORDS SUMMARY | 2024-09-30 09:07 | XMS_ITS | Clinical Summary ---
Author Organization Unknown Care Team Providers Care Recruiting Internship Name Role Phone JASMIN BURIAL VAULT DELIVERER AND INSTALLER, JAMES Unavailable Unavailable ARACELI RN, ELIANE Unavailable Unavailable KYLEE PT, SHANTAL Unavailable Unavailable IVANIA MOLD CLAMPER, MODE Unavailable Unavailable STANISLAV MURRELLN, SOCORRO Unavailable Unavailabl e SPAFFORD OT, TEMO Unavailable Unavailable CONDINO LAURYN/SARKAR, SUNSHINE Unavailable Unav ailable Payers Payer Name Policy Type Policy Number Effective Date Expira tion Date MEDICARE.NGS.PDGM [id number] Problems Condition Name Condition Details Condition Category [...] HISTORY OF FALLING Active 11-15 00:00: 00 ELEVATED GUARD (CURRENT) USE OF ASPIRIN Active 11-15 00:00: 00 ELEVATED GUARD (CURRENT) USE OF OPIATE ANALGESIC Active 11-15 00:00: 00 RETIREMENT (CURRENT) USE OF NON-STEROIDA L NON-INFLAM (NSAID) [...] 11-09 00:00: 00 11-15 00:00 :00 No [id number] Per instruc tions Per instructio ns (route: oral) Med Classific ation: Cardiovas cular Therapy Agents oxycodone 5 mg tablet 10-28 00:00: 00 11-15 00:00 :00 No [id number] Per instruc tions Per instructio ns (route: oral) Med Classific ation: Analgesic , Anti-infl ammatory or Antipyret ic amlodipine 5 mg tablet 11-15 00:00: 00 Yes [id number] HTN 1 tablet 2 TIMES DAILY 1 tablet 2 TIMES DAILY (route: oral) Med Classific ation: Cardiovas cular Therapy Agents aspirin 81 mg tablet,eki yed release 11-15 00:00: 00 11-25 23:59 :00 No [id number] BLOOD THINNER 1 tablet 2 TIMES DAILY 1 tablet 2 TIMES DAILY (route: oral) Med Classific ation: Hematolog ical Agents aspirin 81 mg tablet,kei yed release 16 00:00: 00 Yes [id number] BLOOD THINNER 1 tablet DAILY 1 tablet DAILY (route: oral) Med Classific ation: Hematolog ical Agents atorvastati n 40 mg tablet 2-05 00:00: 00 Yes [id number] HIGH CHOLESTEROL 1 tablet DAILY 1 tablet DAILY (route: oral) Med Classific ation: Cardiovas cular Therapy Agents celecoxib 200 mg capsule 2- 00:00: 00 Yes [id number] DISCOMFORT 1 capsule 2 TIMES DAILY 1 capsule 2 TIMES DAILY (route: oral) Med Classific ation: Analgesic , Anti-infl ammatory or Antipyret ic cholecalcif tiff (vitamin D3) 25 mcg (1,000 unit) tablet 2- 00:00: 00 Yes [id number] SUPPLEMENT 2 tablet DAILY 2 tablet DAILY (route: oral) Med Classific ation: Electroly te Balance-N utritiona l Products Colace 100 mg capsule 2- 00:00: 00 Yes [id number] STOOL SOFTENER 1 capsule 2 TIMES DAILY 1 capsule 2 TIMES DAILY (route: oral) Med Classific ation: Gastroint estinal Therapy Agents finasteride 5 mg tablet 2- 00:00: 00 Yes [id number] BPH 1 tablet DAILY 1 tablet DAILY (route: oral) Med Classific ation: Genitouri nary Therapy gabapentin 300 mg capsule 2- 00:00: 00 Yes [id number] DISCOMFORT 1 capsule 3 TIMES DAILY 1 capsule 3 TIMES DAILY (route: oral) Med Classific ation: Central Nervous System Agents losartan 100 mg tablet 2- 00:00: 00 Yes [id number] HEART DISEASE 1 tablet DAILY 1 tablet DAILY (route: oral) Med Classific ation: Cardiovas cular Therapy Agents methocarbam ol 500 mg tablet 2- 00:00: 00 Yes [id number] MUSCLE SPASM 1 tablet 3 TIMES DAILY 1 tablet 3 TIMES DAILY (route: oral) Med Classific ation: Locomotor System oxycodone 5 mg tablet 2-05 00:00: 00 Yes [id number] PAIN 1 tablet EVERY 4 HOURS 1 tablet EVERY 4 HOURS (route: oral) Med Classific ation: Analgesic , Anti-infl ammatory or Antipyret ic tamsulosin 0.4 mg capsule 11-15 00:00: 00 Yes [id number] BPH 1 capsule DAILY 1 capsule DAILY (route: oral) Med Classific ation: Genitouri nary Therapy Tylenol 325 mg tablet 11-15 00:00: 00 Yes [id number] DISCOMFORT 2 tablet 2 TIMES DAILY 2 [...] ADMISSION AND PRN FOR FOR RN TO ASSESS/MIXER BLENDER TO OBSERVE PATIENT, WITH NOTIFICATION TO THE [...] ADMISSION AND PRN FOR FOR RN TO ASSESS/MIXER BLENDER TO OBSERVE PATIENT, WITH NOTIFICATION TO THE [...] DETERIORATION, COMPLICATIONS, OR INFECTION TO RN CLINICAL STOGY ROLLER AND/OR PHYSICIAN. ORTHOPEDIC SURGICAL AFTERCARE (PT) MAY [...] DETERIORATION, COMPLICATIONS, OR INFECTION TO RN CLINICAL STOGY ROLLER AND/OR PHYSICIAN. ORTHOPEDIC SURGICAL AFTERCARE (PT) MAY [...] 2023-12-13 00:00:00 Outpatient NEW ADMISSION SHANTAL PICHARDO [facility] [id number] 2023-12-13 00:00:00 DISCHARGE TO HOME OR SELF CARE INDEPENDEN T IN THE COMMUNITY HH ONLY - OUT PATIENT 93.33
[2024-09-30 09:12] VITALS: BP 132/42; PULSE 81; TEMP 36.7; O2SAT 94; BMI 31.0
--- NOTE | 2024-09-30 09:12 | MHC.OFFWIV ---
Intake Vital Signs 09/30/24 09:12 Height 5 ft 9 in Weight 210 lb BMI 31.0 BP 132/42 L Blood Pressure Location Rt brachial Position Sitting Pulse 81 Pulse Source Pulse Oximeter Temp 98.1 F Temp Source Oral Pulse Oximetry (%) 94 Oxygen Delivery Method Room Air Intake Visit Reasons: EP congestion, cough, running nose Intake Note: Pt is here today c/o chest congestion, cough and nasal congestion Patient Tobacco Use Status: Current everyday Tobacco user Allergies formaldehyde [FORMALDEHYDE] Allergy (Unknown, Verified 09/30/24 09:13) HIVES lanolin Allergy (Verified 09/30/24 09:13) Hives propylene glycol Allergy (Verified 09/30/24 09:13) Rash a steroid cream; he is not dimitry Allergy (Unknown, Uncoded 09/30/24 09:13) Unknown [employer] Allergy (Unknown, Uncoded 09/30/24 09:13) Unknown HPI EP congestion, cough, running nose HPI Details 3 days cough worsening fatigue nasal congestion and some shortness of breath. No increasing weight or orthopnea PFSH Medical History HTN (hypertension) Vaccination refused by patient Acute hypoxic respiratory failure Osteoarthritis of right hip Arthritis Enlarged prostate Cough Elevated cholesterol HTN (hypertension) Right shoulder pain Non-rheumatic aortic stenosis Severe aortic stenosis Diverticulosis Umbilical hernia Deformity of left hand Systolic murmur Smoker COPD (chronic obstructive pulmonary disease) Skin cancer Rectus diastasis Surgical History Hx of hand surgery H/O colonoscopy Status post transcatheter aortic valve replacement (TAVR) using bioprosthesis Aortic valve replaced S/P cardiac catheterization History of left hip replacement Family History Father Unknown family medical history Mother No problems noted. Social History Household Members: Spouse Housing: House Are you a primary home care and home health aides teacher to a significant other at home: No Do you presently have visiting nurse or other home services: No Alcohol intake: never Patient Tobacco Use Status: Current everyday Tobacco user Tobacco use type: Cigarette Cigarettes Per Day: 10 Years Smoked: 55 e-Cigarette/Vaping Use: Never Used Second Hand Smoke Exposure: No service: No Current occupational status: employed Cognitive needs: No Hearing needs: No Vision needs: Yes Review of Systems Const Details: See HPI Physical Exam Vital Signs: Last Vital Signs Temp 98.1 F 09/30/24 09:12 Pulse 81 09/30/24 09:12 BP 132/42 L 09/30/24 09:12 Pulse Ox 94 09/30/24 09:12 Oxygen Delivery Method Room Air 09/30/24 09:12 BMI result Body Mass Index 31.0 Const Other: Appears mildly ill General: no acute distress and well developed Nutritional Appearance: well nourished Orientation/consciousness: patient oriented x3 HEENT Other: Severe congestion and sinus pressure over frontal and maxillary sinus Head: Yes normocephalic and Yes atraumatic Eyes General: appearance normal, both eyes and all related structures Pupils: Equal, round and reactive pupils present EOM: EOMs intact bilaterally Resp Other: Lungs are clear to auscultation except upper airway secretions sounds Effort & Inspection: normal respiratory effort Auscultation: clear to auscultation bilaterally Cardio Rate: regular rate Rhythm: regular rhythm Heart sounds: S1 normal heart sound present, S2 normal heart sound present, no gallops, no murmurs and no rubs Neuro General: patient oriented x3 and gait normal Cranial nerves: Yes Equal, round and reactive pupils present Psych Affect: normal affect Assessment & Plan Assessment & Plan (1) Sinusitis: Code(s): J32.9 - Chronic sinusitis, unspecified Qualifiers: Chronicity: acute Recurrence: recurrent Sinusitis location: frontal Qualified Code(s): J01.11 - Acute recurrent frontal sinusitis Plan: 74-year-old male smoker presents with 3 days of worsening fever, fatigue, sinus pressure and cough. Likely bacterial sinus infection Start Augmentin Encouraged rest and fluids Can not rule out COVID/flu/RSV infection so nasal swab sent to lab (2) Bronchitis: Code(s): J40 - Bronchitis, not specified as acute or chronic Plan: Cough with increasing secretions Likely bronchitis but concern for early pneumonia Patient being given Augmentin. Will also give him some prednisone Plan Patient advised to call or return to office if not improving or worsens. Orders: Orders SARS-CoV2/FLU/RSV Today Z20.822 - Contact with and (suspected) exposure to COVID-19 Medications: New amoxicillin-pot clavulanate 500-125 mg (Augmentin) 1 tab PO Q12H 10 days 20 tabs 0RF prednisone 40 mg (2 x 20 mg) PO DAILY 5 days 10 tabs 0RF Coding Level of Care Code Est Pt Level 3 (28960) Diagnoses Sinusitis J01.11 Chronicity: acute Recurrence: recurrent Sinusitis location: frontal Bronchitis J40
== END 2024-09-30 11:05 | disposition home or self-care (01) ==
LOC: HO.HMCWIC 09:06
PROVIDERS: PCP Nurse Practitioner Family; Visit Provider Family Medicine
DX: J01.11 Acute recurrent frontal sinusitis (principal); J40 Bronchitis, not specified as acute or chronic

== ENCOUNTER 2024-09-30 15:32 | Inpatient (IN) | payer MEDICARE, SELFPAY ==
[2024-09-30] VITALS (11 sets, daily range): BP systolic 100–139; BP diastolic 30–92; PULSE 65–113; RESP 15–30; TEMP 36.7–39.2; O2SAT 86–97; BMI 31.0
--- NOTE | ~2024-09-30 | XR_ITS ---
EXAMINATION: XR CHEST CLINICAL INFORMATION: sob COMPARISON: 10/25/2023 TECHNIQUE: Frontal view of the chest was obtained. FINDINGS: Clear lungs. No effusion or pneumothorax. Unchanged cardiomediastinal silhouette. Right axillary surgical clips. XR/XR chest 1V IMPRESSION: Clear lungs. Electronically signed by: Inocencia Lunsford MD 09/30/2024 05:39 PM [facility] [place]
--- NOTE | ~2024-09-30 | CT_ITS ---
EXAMINATION: CT ANGIOGRAM OF THE CHEST WITH AND WITHOUT CONTRAST (CT PULMONARY ANGIOGRAM FOR PE) CLINICAL INFORMATION: cough COMPARISON: None available. TECHNIQUE: Prior to contrast administration, noncontrast localization images were obtained. Subsequently, multidetector volumetric imaging was performed from the thoracic inlet to below the diaphragms following the administration of 85 mL Omnipaque 350 intravenous contrast. No contrast reaction reported Sagittal, coronal, and MIP oblique sagittal reformatted images were obtained on the CT workstation, uploaded to PACS, and reviewed. This CT examination was performed using dose optimization techniques as appropriate, variously including the following: *Automated exposure control *Adjustment of mA and/or kV according to patient size (this includes techniques or standardized protocols for targeted exams where dose is matched to indication/reason for exam; i.e. extremities or head) *Use of iterative reconstruction technique TOTAL DLP: 426 mGy-cm FINDINGS: QUALITY OF STUDY/CONTRAST BOLUS: Satisfactory. PULMONARY ARTERIES: No pulmonary emboli. THORACIC AORTA: No aneurysm. TAVR changes. LUNG: No focal consolidation, nodules or masses. PLEURA: No pleural effusion or pneumothorax. MEDIASTINUM: Normal heart size. No pericardial effusion. Small reactive appearing lymph nodes. No pathologic hilar or mediastinal lymphadenopathy. No evidence of septal bowing or right heart strain. CORONARY ARTERY CALCIFICATION: Present CHEST WALL/AXILLA: No axillary or internal mammary lymphadenopathy. OSSEOUS STRUCTURES: No acute or suspicious osseous abnormality. UPPER ABDOMEN: Unremarkable. No reflux of contrast into the hepatic veins to suggest elevated right heart pressures. CT/CT abdomen pelvis w IV con IMPRESSION: No evidence for acute or chronic pulmonary embolism. VTE: negative EXAMINATION: CT ABDOMEN AND PELVIS WITH CONTRAST CLINICAL INFORMATION: Right-sided pain, sepsis COMPARISON: None available. TECHNIQUE: Multidetector volumetric images were obtained from the superior aspect of the liver through the pubic symphysis following administration 85 mL of Omnipaque 350 intravenous contrast. Sagittal and coronal reformatted images were obtained on the technologist's workstation. Oral contrast: No This CT examination was performed using dose optimization techniques as appropriate, variously including the following: *Automated exposure control *Adjustment of mA and/or kV according to patient size (this includes techniques or standardized protocols for targeted exams where dose is matched to indication/reason for exam; i.e. extremities or head) *Use of iterative reconstruction technique DLP: 620 mGy-cm FINDINGS: LUNG BASES: The visualized lung bases are unremarkable. LIVER, GALLBLADDER, AND BILIARY TREE: The liver is normal in size, shape, and attenuation. No focal hepatic lesion or biliary ductal dilatation is present. Small layering stones without acute inflammatory changes. PANCREAS: Unremarkable. SPLEEN: Unremarkable. ADRENAL GLANDS: Unremarkable. KIDNEYS AND URETERS: The kidneys are normal in size, shape, and attenuation. No hydronephrosis, hydroureter, or calculi seen. No perinephric stranding. BLADDER: Decompressed and difficult to assess. GASTROINTESTINAL TRACT: Fluid-filled small bowel loops throughout without evidence for any definite inflammatory changes. No obstruction. Moderate stool retention throughout the colon. ABDOMINAL WALL: No significant hernia is appreciated. LYMPH NODES: Normal. VASCULAR: Unremarkable. PELVIC VISCERA: Limited assessment due to streak artifact from patient's bilateral hip prosthesis. OSSEOUS STRUCTURES: Unremarkable. IMPRESSION: Fluid-filled small bowel loops which may be related to enteritis or disordered motility. No obstruction. No specific findings of any right-sided abnormality to explain patient's symptoms. Incidental gallstones. Fleischner guidelines were followed. Electronically signed by: Baljeet Keith MD 09/30/2024 08:34 PM EST
--- OUTSIDE RECORDS SUMMARY | 2024-09-30 15:34 | XMS_ITS | Clinical Summary ---
Author Organization Unknown Care Team Providers Care [place] Construction Supervisor Name Role Phone JASMIN LUG BREAKER AND WIRE PULLER, JAMES Unavailable Unavailable ARACELI RN, ELIANE Unavailable Unavailable KYLEE PT, SHANTAL Unavailable Unavailable IVANIA GEOLOGY SCIENTIST, MODE Unavailable Unavailable STANISLAV MURRELLN, SOCORRO Unavailable Unavailabl e SPAFFORD OT, TEMO Unavailable Unavailable CONDINO LAURYN/SARKAR, SUNSHINE Unavailable Unav ailable Payers Payer Name Policy Type Policy Number Effective Date Expira tion Date MEDICARE.NGS.PDGM [id number] Problems Condition Name Condition Details Condition Category [...] HISTORY OF FALLING Active 11-15 00:00: 00 ELECTRONIC TECH (CURRENT) USE OF ASPIRIN Active 11-15 00:00: 00 ELECTRONIC TECH (CURRENT) USE OF OPIATE ANALGESIC Active 11-15 00:00: 00 CUSTODIAL (CURRENT) USE OF NON-STEROIDA L NON-INFLAM (NSAID) [...] 11-09 00:00: 00 11-15 00:00 :00 No [id number] Per instruc tions Per instructio ns (route: oral) Med Classific ation: Cardiovas cular Therapy Agents oxycodone 5 mg tablet 10-28 00:00: 00 11-15 00:00 :00 No [id number] Per instruc tions Per instructio ns (route: oral) Med Classific ation: Analgesic , Anti-infl ammatory or Antipyret ic amlodipine 5 mg tablet 11-15 00:00: 00 Yes [id number] HTN 1 tablet 2 TIMES DAILY 1 tablet 2 TIMES DAILY (route: oral) Med Classific ation: Cardiovas cular Therapy Agents aspirin 81 mg tablet,kei yed release 11-15 00:00: 00 11-25 23:59 :00 No [id number] BLOOD THINNER 1 tablet 2 TIMES DAILY 1 tablet 2 TIMES DAILY (route: oral) Med Classific ation: Hematolog ical Agents aspirin 81 mg tablet,kei yed release 16 00:00: 00 Yes [id number] BLOOD THINNER 1 tablet DAILY 1 tablet DAILY (route: oral) Med Classific ation: Hematolog ical Agents atorvastati n 40 mg tablet 2-05 00:00: 00 Yes [id number] HIGH CHOLESTEROL 1 tablet DAILY 1 tablet DAILY (route: oral) Med Classific ation: Cardiovas cular Therapy Agents celecoxib 200 mg capsule 2- 00:00: 00 Yes [id number] DISCOMFORT 1 capsule 2 TIMES DAILY 1 capsule 2 TIMES DAILY (route: oral) Med Classific ation: Analgesic , Anti-infl ammatory or Antipyret ic cholecalcif tiff (vitamin D3) 25 mcg (1,000 unit) tablet 2- 00:00: 00 Yes [id number] SUPPLEMENT 2 tablet DAILY 2 tablet DAILY (route: oral) Med Classific ation: Electroly te Balance-N utritiona l Products Colace 100 mg capsule 2- 00:00: 00 Yes [id number] STOOL SOFTENER 1 capsule 2 TIMES DAILY 1 capsule 2 TIMES DAILY (route: oral) Med Classific ation: Gastroint estinal Therapy Agents finasteride 5 mg tablet 2- 00:00: 00 Yes [id number] BPH 1 tablet DAILY 1 tablet DAILY (route: oral) Med Classific ation: Genitouri nary Therapy gabapentin 300 mg capsule 2- 00:00: 00 Yes [id number] DISCOMFORT 1 capsule 3 TIMES DAILY 1 capsule 3 TIMES DAILY (route: oral) Med Classific ation: Central Nervous System Agents losartan 100 mg tablet 2- 00:00: 00 Yes [id number] HEART DISEASE 1 tablet DAILY 1 tablet DAILY (route: oral) Med Classific ation: Cardiovas cular Therapy Agents methocarbam ol 500 mg tablet 2- 00:00: 00 Yes [id number] MUSCLE SPASM 1 tablet 3 TIMES DAILY 1 tablet 3 TIMES DAILY (route: oral) Med Classific ation: Locomotor System oxycodone 5 mg tablet 2-05 00:00: 00 Yes [id number] PAIN 1 tablet EVERY 4 HOURS 1 tablet EVERY 4 HOURS (route: oral) Med Classific ation: Analgesic , Anti-infl ammatory or Antipyret ic tamsulosin 0.4 mg capsule 11-15 00:00: 00 Yes [id number] BPH 1 capsule DAILY 1 capsule DAILY (route: oral) Med Classific ation: Genitouri nary Therapy Tylenol 325 mg tablet 11-15 00:00: 00 Yes [id number] DISCOMFORT 2 tablet 2 TIMES DAILY 2 [...] ADMISSION AND PRN FOR FOR RN TO ASSESS/WATER HYDRANT INSTALLER TO OBSERVE PATIENT, WITH NOTIFICATION TO THE [...] ADMISSION AND PRN FOR FOR RN TO ASSESS/WATER HYDRANT INSTALLER TO OBSERVE PATIENT, WITH NOTIFICATION TO THE [...] DETERIORATION, COMPLICATIONS, OR INFECTION TO RN CLINICAL TRAINING AND DEVELOPMENT HEAD AND/OR PHYSICIAN. ORTHOPEDIC SURGICAL AFTERCARE (PT) MAY [...] DETERIORATION, COMPLICATIONS, OR INFECTION TO RN CLINICAL TRAINING AND DEVELOPMENT HEAD AND/OR PHYSICIAN. ORTHOPEDIC SURGICAL AFTERCARE (PT) MAY [...] 2023-12-13 00:00:00 Outpatient NEW ADMISSION SHANTAL PICHARDO [facility] [id number] 2023-12-13 00:00:00 DISCHARGE TO HOME OR SELF CARE INDEPENDEN T IN THE COMMUNITY HH ONLY - OUT PATIENT 93.33
--- OUTSIDE RECORDS SUMMARY | 2024-09-30 15:34 | XMS_ITS | Clinical Summary ---
Author Organization Unknown Care Team Providers Care Bit Bender Name Role Phone JASMIN HAZARDOUS MATERIALS ANALYST, JAMES Unavailable Unavailable ARACELI RN, ELIANE Unavailable Unavailable KYLEE PT, SHANTAL Unavailable Unavailable IVANIA GRAIN MANAGER, MODE Unavailable Unavailable STANISLAV MURRELLN, SOCORRO Unavailable Unavailabl e SPAFFORD OT, TEMO Unavailable Unavailable CONDINO LAURYN/SARKAR, SUNSHINE Unavailable Unav ailable Payers Payer Name Policy Type Policy Number Effective Date Expira tion Date MEDICARE.NGS.PDGM [id number] Problems Condition Name Condition Details Condition Category [...] HISTORY OF FALLING Active 11-15 00:00: 00 SUPERVISOR QUALITY CONTROL (CURRENT) USE OF ASPIRIN Active 11-15 00:00: 00 SUPERVISOR QUALITY CONTROL (CURRENT) USE OF OPIATE ANALGESIC Active 11-15 00:00: 00 SENIOR LIVING (CURRENT) USE OF NON-STEROIDA L NON-INFLAM (NSAID) [...] 11-09 00:00: 00 11-15 00:00 :00 No [id number] Per instruc tions Per instructio ns (route: oral) Med Classific ation: Cardiovas cular Therapy Agents oxycodone 5 mg tablet 10-28 00:00: 00 11-15 00:00 :00 No [id number] Per instruc tions Per instructio ns (route: oral) Med Classific ation: Analgesic , Anti-infl ammatory or Antipyret ic amlodipine 5 mg tablet 11-15 00:00: 00 Yes [id number] HTN 1 tablet 2 TIMES DAILY 1 tablet 2 TIMES DAILY (route: oral) Med Classific ation: Cardiovas cular Therapy Agents aspirin 81 mg tablet,kei yed release 11-15 00:00: 00 11-25 23:59 :00 No [id number] BLOOD THINNER 1 tablet 2 TIMES DAILY 1 tablet 2 TIMES DAILY (route: oral) Med Classific ation: Hematolog ical Agents aspirin 81 mg tablet,kei yed release 16 00:00: 00 Yes [id number] BLOOD THINNER 1 tablet DAILY 1 tablet DAILY (route: oral) Med Classific ation: Hematolog ical Agents atorvastati n 40 mg tablet 2-05 00:00: 00 Yes [id number] HIGH CHOLESTEROL 1 tablet DAILY 1 tablet DAILY (route: oral) Med Classific ation: Cardiovas cular Therapy Agents celecoxib 200 mg capsule 2- 00:00: 00 Yes [id number] DISCOMFORT 1 capsule 2 TIMES DAILY 1 capsule 2 TIMES DAILY (route: oral) Med Classific ation: Analgesic , Anti-infl ammatory or Antipyret ic cholecalcif tiff (vitamin D3) 25 mcg (1,000 unit) tablet 2- 00:00: 00 Yes [id number] SUPPLEMENT 2 tablet DAILY 2 tablet DAILY (route: oral) Med Classific ation: Electroly te Balance-N utritiona l Products Colace 100 mg capsule 2- 00:00: 00 Yes [id number] STOOL SOFTENER 1 capsule 2 TIMES DAILY 1 capsule 2 TIMES DAILY (route: oral) Med Classific ation: Gastroint estinal Therapy Agents finasteride 5 mg tablet 2- 00:00: 00 Yes [id number] BPH 1 tablet DAILY 1 tablet DAILY (route: oral) Med Classific ation: Genitouri nary Therapy gabapentin 300 mg capsule 2- 00:00: 00 Yes [id number] DISCOMFORT 1 capsule 3 TIMES DAILY 1 capsule 3 TIMES DAILY (route: oral) Med Classific ation: Central Nervous System Agents losartan 100 mg tablet 2- 00:00: 00 Yes [id number] HEART DISEASE 1 tablet DAILY 1 tablet DAILY (route: oral) Med Classific ation: Cardiovas cular Therapy Agents methocarbam ol 500 mg tablet 2- 00:00: 00 Yes [id number] MUSCLE SPASM 1 tablet 3 TIMES DAILY 1 tablet 3 TIMES DAILY (route: oral) Med Classific ation: Locomotor System oxycodone 5 mg tablet 2-05 00:00: 00 Yes [id number] PAIN 1 tablet EVERY 4 HOURS 1 tablet EVERY 4 HOURS (route: oral) Med Classific ation: Analgesic , Anti-infl ammatory or Antipyret ic tamsulosin 0.4 mg capsule 11-15 00:00: 00 Yes [id number] BPH 1 capsule DAILY 1 capsule DAILY (route: oral) Med Classific ation: Genitouri nary Therapy Tylenol 325 mg tablet 11-15 00:00: 00 Yes [id number] DISCOMFORT 2 tablet 2 TIMES DAILY 2 [...] ADMISSION AND PRN FOR FOR RN TO ASSESS/LENS POLISHER HAND TO OBSERVE PATIENT, WITH NOTIFICATION TO THE [...] ADMISSION AND PRN FOR FOR RN TO ASSESS/LENS POLISHER HAND TO OBSERVE PATIENT, WITH NOTIFICATION TO THE [...] DETERIORATION, COMPLICATIONS, OR INFECTION TO RN CLINICAL MANAGER OF PROJECT MANAGEMENT AND/OR PHYSICIAN. ORTHOPEDIC SURGICAL AFTERCARE (PT) MAY [...] DETERIORATION, COMPLICATIONS, OR INFECTION TO RN CLINICAL MANAGER OF PROJECT MANAGEMENT AND/OR PHYSICIAN. ORTHOPEDIC SURGICAL AFTERCARE (PT) MAY [...] 2023-12-13 00:00:00 Outpatient NEW ADMISSION SHANTAL PICHARDO [facility] [id number] 2023-12-13 00:00:00 DISCHARGE TO HOME OR SELF CARE INDEPENDEN T IN THE COMMUNITY HH ONLY - OUT PATIENT 93.33
--- NOTE | 2024-09-30 16:09 | ED_ITS ---
HPI - Nausea/Vomiting/Diarrhea General Chief complaint: Nausea/Vomiting/Diarrhea Stated complaint: Vomiting, Chills Time Seen by Provider: 09/30/24 16:19 Source: patient, family, RN notes reviewed and old records reviewed Mode of arrival: ambulatory Limitations: no limitations History of Present Illness ED Provider: Trudy HPI Narrative: 74-year-old male past medical history significant for hypertension, aortic stenosis status post TAVR presents for evaluation of fevers, vomiting and cough. Patient reports his symptoms started late last night. He reports that his vomiting started just prior to arrival. He went to a walk-in clinic and had viral swabs has not heard the results of these yet. Denies any chest pain or abdominal pain. He reports shaking all over and generalized weakness No other complaints or concerns at this time Associated nausea: Yes Related Data Home Medications ?Medication ?Instructions ?Recorded ?Confirmed finasteride 5 mg tablet 5 mg PO BEDTIME 08/08/20 10/01/24 cholecalciferol (vitamin D3) 125 125 mcg PO DAILY 07/29/22 10/01/24 mcg (5,000 unit) capsule acetaminophen 325 mg tablet 650 mg PO BID Pain, Mild (Pain 10/01/24 10/01/24 Scale 1-3) amlodipine 10 mg tablet 10 mg PO DAILY 10/01/24 10/01/24 celecoxib 200 mg capsule 200 mg PO DAILY 10/01/24 10/01/24 nystatin 100,000 unit/gram topical 1 appl topical DAILY PRN Skin 10/01/24 10/01/24 powder Irritation tamsulosin 0.4 mg capsule 0.4 mg PO BEDTIME 10/01/24 10/01/24 Previous Rx's ?Medication ?Instructions ?Recorded Raised toliet seat #1 ea 10/13/23 walker #1 ea 10/13/23 bedside commode #1 ea 10/19/23 cane #1 ea 11/17/23 magnesium oxide 400 mg PO DAILY #90 tabs 04/24/24 aspirin 81 mg tablet,delayed 81 mg PO DAILY #90 tabs 06/20/24 release atorvastatin 40 mg tablet 40 mg PO BEDTIME 90 days #90 tabs 07/12/24 losartan 100 mg tablet 100 mg PO DAILY #90 tabs 08/23/24 gabapentin 300 mg capsule 300 mg PO TID 30 days #90 caps 09/15/24 Allergies Allergy/AdvReac Type Severity Reaction Status Date / Time formaldehyde [FORMALDEHYDE] Allergy Unknown HIVES Verified 09/30/24 16:13 lanolin Allergy Hives Verified 09/30/24 16:13 propylene glycol Allergy Rash Verified 09/30/24 16:13 a steroid cream; he is not Allergy Unknown Unknown Uncoded 09/30/24 16:13 dimitry [employer] Allergy Unknown Unknown Uncoded 09/30/24 16:13 Review of Systems 2 Constitutional: Constitutional: Reports body ache(s), Reports chills, Reports fatigue, Reports fever(s), Denies headache(s), Reports lethargy, Reports malaise and Reports weakness ENT: Denies vertigo, Denies dizziness and Denies headache(s) Cardiovascular: Cardiovascular: Denies chest pain and Reports dyspnea Respiratory: Respiratory: Reports cough and Reports dyspnea Gastrointestinal: Gastrointestinal: Denies abdominal pain, Denies diarrhea, Reports nausea and Reports vomiting Musculoskeletal: Musculoskeletal: Denies back pain and Reports muscle cramps Integumentary/Breasts: Skin/Breast: Denies rash Neurologic: Denies vertigo, Denies dizziness, Denies headache(s) and Reports weakness Endocrine: Endocrine: Reports fatigue PMFSH Past Medical History Medical History HTN (hypertension) Vaccination refused by patient Acute hypoxic respiratory failure Osteoarthritis of right hip Arthritis Enlarged prostate Cough Elevated cholesterol HTN (hypertension) Right shoulder pain Non-rheumatic aortic stenosis Severe aortic stenosis Diverticulosis Umbilical hernia Deformity of left hand Systolic murmur Smoker COPD (chronic obstructive pulmonary disease) Skin cancer Rectus diastasis Surgical History Hx of hand surgery H/O colonoscopy Status post transcatheter aortic valve replacement (TAVR) using bioprosthesis Aortic valve replaced S/P cardiac catheterization History of left hip replacement Family History Family History Father Unknown family medical history Mother No problems noted. Social History Social History Household Members: Significant Other Housing: House Are you a primary home health aide caregiver to a significant other at home: No Do you presently have visiting nurse or other home services: No Alcohol intake: never Patient Tobacco Use Status: Current everyday Tobacco user Tobacco use type: Cigarette Cigarette Packs Per Day: 0.5 Cigarettes Per Day: 10.0 Years Smoked: 55 e-Cigarette/Vaping Use: Never Used Second Hand Smoke Exposure: No service: No Current occupational status: employed Cognitive needs: No Hearing needs: No Vision needs: Yes Physical Exam 2 Vital Signs: Vital Signs: Last Vital Signs Temp 98.6 F 10/03/24 07:07 Pulse 88 10/03/24 11:53 Resp 16 10/03/24 11:53 BP 137/70 10/03/24 08:14 Pulse Ox 91 L 10/03/24 07:07 O2 Del Method Nasal Cannula 10/03/24 07:07 O2 Flow Rate 2 10/03/24 07:07 BMI result Body Mass Index 31.0 Const: General: comfortable, no acute distress, alert, awake and ill appearing (But not in any distress) Nutritional Appearance: well nourished O rientation/consciousness: patient oriented x3 HEENT: Head: Yes normocephalic and Yes atraumatic Eyes: Eyelids: Yes eyelids normal Conjunctivae: conjunctivae normal S clerae: sclerae normal Corneas: corneas normal Pupils: Equal, round and reactive pupils present EOM: EOMs intact bilaterally Neck: Neck: Yes full ROM Resp: Effort & Inspection: normal respiratory effort, able to speak in complete sentences, no audible wheezes and not labored Auscultation: clear to auscultation bilaterally Cardio: Rate: regular rate Rhythm: regular rhythm GI: Inspection: No distended Palpation (GI): Soft to palpation, not firm, nontender, no guarding and not rigid Skin: General skin exam: elasticity normal Neuro: General: patient oriented x3 Cranial nerves: Yes Equal, round and reactive pupils present and Yes Bilaterally intact EOM present Cognition (Neuro): normal cognition Course Course Course Narrative: This is a Rapid Medical Exam performed in triage by Yessy Vazquez PA-C. Full HPI, ROS and PE to be performed by primary ED provider. 74-year-old male with a past medical history of HTN, cough, HLD, COPD, presenting to the ED c/o abdominal pain x3 days with associated nausea, vomiting, chills, cough, SOB PE: Tachycardic, tachypneic, febrile, hypoxic 86% on RA Plan: EKG, labs, UA, viral testing, CXR, CT AP, empiric IV antibiotics ordered Reevaluation(s) Reevaluation #1: Given abnormal vital signs with suspected infection sepsis alert was called shortly after the patient was brought to the room around 16:30. Sepsis focused exam was performed. Received call from the lab, the patient has a bandemia of 29%. There is no leukocytosis. He received Tylenol 975 mg already in his temperature is increased to 102. I ordered a dose of ibuprofen. On re-evaluation the patient reports feeling better, he is resting comfortably in his not as restless of the was on arrival. However on exam he has mild right-sided abdominal tenderness. Plan to CT the chest and abdomen. Time: 18:12 Reevaluation #2: The patient is a smoker and may have undiagnosed COPD he was wheezy on exam, he was given a nebulized treatment and I ordered Solu-Medrol Time: 20:24 Medications Administered Generic Name Dose Route Start Last Admin Trade Name Freq PRN Reason Stop Dose Admin Albuterol/Ipratropium 3 ml 10/01/24 08:00 10/03/24 11:53 Albuterol/Iprat 2.5/0.5mg 3 Ml Ampul.Neb INHALE 3 ml RQ4H WHILE AWAKE RODRIGUEZ Administration Albuterol/Ipratropium 3 ml 09/30/24 21:13 10/01/24 03:35 Albuterol/Iprat 2.5/0.5mg 3 Ml Ampul.Neb INHALE 3 ml Q4H PRN Administration Wheezing Amlodipine Besylate 10 mg 10/01/24 09:00 10/03/24 08:14 Amlodipine Besylate 10 Mg Tablet PO 10 mg DAILY RODRIGUEZ Administration Protocol Aspirin 81 mg 10/01/24 09:00 10/03/24 08:13 Aspirin Enteric Coated 81 Mg Tablet. PO 81 mg DAILY RODRIGUEZ Administration Atorvastatin Calcium 40 mg 10/01/24 21:00 10/02/24 22:16 Atorvastatin Calcium 40 Mg Tablet PO 40 mg BEDTIME RODRIGUEZ Administration Benzocaine 1 lozenge 10/01/24 22:52 10/02/24 10:17 Throat Lozenge, Medicated Lozenge MUCOUS MEM 1 lozenge Q2H PRN Administration Sore Throat Benzonatate 100 mg 09/30/24 22:04 10/01/24 22:39 Benzonatate 100 Mg Capsule PO 100 mg TID PRN Administration Cough Celecoxib 200 mg 10/01/24 09:00 10/03/24 08:13 Celecoxib 200 Mg Capsule PO 200 mg DAILY RODRIGUEZ Administration Doxycycline Monohydrate 100 mg 10/02/24 08:45 10/03/24 08:14 Doxycycline Monohydrate 100 Mg Capsule PO 100 mg Q12H RODRIGUEZ Administration Enoxaparin Sodium 40 mg 09/30/24 21:15 10/02/24 22:19 Enoxaparin Sodium 40 Mg/0.4 Ml Syringe SUBCUT 40 mg Q24H RODRIGUEZ Administration Finasteride 5 mg 10/01/24 21:00 10/02/24 22:15 Finasteride 5 Mg Tablet PO 5 mg BEDTIME RODRIGUEZ Administration Gabapentin 300 mg 10/01/24 09:00 10/03/24 08:14 Gabapentin 300 Mg Capsule PO 300 mg TID RODRIGUEZ Administration Losartan Potassium 100 mg 10/01/24 09:00 10/03/24 08:14 Losartan Potassium 50 Mg Tablet PO 100 mg DAILY RODRIGUEZ Administration Protocol Magnesium Hydroxide 30 ml 09/30/24 21:03 10/02/24 09:06 Milk Of Magnesia 30 Ml Oral.Susp PO 30 ml DAILY PRN Administration Constipation Magnesium Oxide 400 mg 10/01/24 09:00 10/03/24 08:14 Magnesium Oxide 400 Mg Tablet PO 400 mg DAILY RODRIGUEZ Administration Methylprednisolone Sodium Succinate 40 mg 10/01/24 09:00 10/03/24 08:13 Methylprednisolone Sod Succ 40 Mg/Ml Vial IVPUSH 40 mg Q12H RODRIGUEZ Administration Oseltamivir Phosphate 30 mg 10/01/24 09:00 10/03/24 08:14 Oseltamivir Phosphate 30 Mg Capsule PO 10/05/24 21:01 30 mg BID RODRIGUEZ Administration Sodium Chloride 3 ml 10/01/24 00:00 10/03/24 08:13 0.9 % Sodium Chloride Flush 3 Ml Syringe IVFLUSH 3 ml QSHIFT RODRIGUEZ Administration Tamsulosin HCl 0.4 mg 10/01/24 21:00 10/02/24 22:15 Tamsulosin Hcl 0.4 Mg Capsule PO 0.4 mg BEDTIME RODRIGUEZ Administration Vitamin D 125 mcg 10/01/24 09:00 10/03/24 08:14 Cholecalciferol (Vitamin D3) 25 Mcg Tablet PO 125 mcg DAILY RODRIGUEZ Administration Discontinued Medications Generic Name Dose Route Start Last Admin Trade Name Didi PRN Reason Stop Dose Admin Acetaminophen 975 mg 09/30/24 16:14 09/30/24 16:40 Acetaminophen 325 Mg Tablet PO 09/30/24 16:15 975 mg ONCE ONE Administration Albuterol Sulfate 2.5 mg/ 5 mg 09/30/24 20:22 09/30/24 20:29 Albuterol Sulfate 2.5 mg INHALE 09/30/24 20:23 5 mg ONCE ONE Administration Piperacillin Sod/Tazobactam 50 mls @ 100 mls/hr 09/30/24 16:14 09/30/24 17:45 Sod 3.375 gm/ Sodium Chloride IV 09/30/24 16:43 Infused ONCE ONE Infusion Sodium Chloride 2,857.62 mls @ 2,857.62 mls/hr 09/30/24 16:27 09/30/24 20:03 Ns 30 ml/kg infuse over 1 hr (2857.62 ml) 09/30/24 17:26 Infused IV Infusion .Q1H STA Piperacillin Sod/Tazobactam 100 mls @ 200 mls/hr 09/30/24 23:00 10/02/24 05:52 Sod 4.5 gm/ Sodium Chloride IV Infused Q6H RODRIGUEZ Infusion Ibuprofen 600 mg 09/30/24 18:11 09/30/24 18:21 Ibuprofen 600 Mg Tablet PO 09/30/24 18:12 600 mg ONCE ONE Administration Iohexol 100 ml 09/30/24 19:28 09/30/24 19:28 Iohexol 350 Mg/Ml 100 Ml Infus..Btl IV 09/30/24 19:29 85 ml ONCE ONE Administration Methylprednisolone Sodium Succinate 125 mg 09/30/24 20:23 09/30/24 20:39 Methylprednisolone Sod Succ 125 Mg/2 Ml Vial IVPUSH 09/30/24 20:24 125 mg ONCE ONE Administration Ondansetron HCl 4 mg 09/30/24 16:27 09/30/24 16:36 Ondansetron Hcl 4 Mg/2 Ml Vial IVPUSH 09/30/24 16:28 4 mg ONCE ONE Administration Oseltamivir Phosphate 75 mg 09/30/24 17:09 09/30/24 17:22 Oseltamivir Phosphate 75 Mg Capsule PO 09/30/24 17:10 75 mg ONCE ONE Administration Medical Decision Making Medical Decision Making [facility] Narrative: 74-year-old male with past medical history as documented above presents for evaluation of fevers, body aches, vomiting. He was brought straight back to the ER as he flags for sepsis with tachycardia, hypoxia, tachypnea. I reviewed his outpatient viral swabs from this morning and the patient tested positive for influenza a, he was negative for COVID-19 as well as RSV. We will still treat the patient with IV fluids, acetaminophen, Zofran. A dose of Zosyn was ordered in triage. Plan for chest x-ray, further evaluation and management as needed Differential Diagnosis Differential Diagnoses: The differential diagnosis associated with the presentation includes Influenza COVID-19 Sepsis Pneumonia Bronchitis Upper respiratory infection Small bowel obstruction Admission/Observation Consideration of admission/observation: Escalation of care including admission/observation considered Lab Data [facility] Lab Attestation statement: I reviewed the patient's lab results. No leukocytosis. The patient has a chronic normocytic anemia and his hemoglobin and hematocrit today are consistent with his baseline. The patient does have a left shift. Mild thrombocytopenia to 180282 which is just below his baseline and may be related to his influenza diagnosis. Chemistries without any significant abnormalities lactic acid within normal limits. 10/01/24 06:32 10/01/24 06:32 Labs: Lab Results 09/30/24 09/30/24 09/30/24 Range/Units 16:32 19:08 19:54 WBC 8.6 (4.8-10.8) X10*3/uL RBC 4.60 (4.60-5.80) X10*6/uL Hgb 13.6 L (14.0-18.0) g/dl Hct 40.7 L (42.0-52.0) % MCV 88.5 (80.0-98.0) fL MCH 29.6 (27.0-33.0) pg MCHC 33.4 (31.0-36.0) g/dl RDW 13.2 (11.0-16.0) % Plt Count 133 L (160-400) X10*3/uL MPV 10.7 (9.4-12.4) fL Immature Gran % (Auto) Cancelled Neut % (Auto) Cancelled Lymph % (Auto) Cancelled [place] % (Auto) Cancelled Eos % (Auto) Cancelled Baso % (Auto) Cancelled Lymph # (Auto) Cancelled [place] # (Auto) Cancelled Eos # (Auto) Cancelled Baso # (Auto) Cancelled Abs Immat Gran (auto) Cancelled Absolute Neuts (auto) Cancelled Absolute Nucleated RBC 0.000 (0.0-0.012) X10*3/uL Nucleated RBC % (auto) 0.0 (0.0-0.2) /100WBC Neutrophils % (Manual) 64 (45-73) % Band Neutrophils % 29 H (3-5) % Lymphocytes % (Manual) 3 L (20-40) % Monocytes % (Manual) 4 (2-11) % Abs Neuts (Manual) 8.0 (2.0-8.3) X10*3/uL Lymphocytes # (Manual) 0.3 L (1.2-4.9) X10*3/uL Monocytes # (Manual) 0.3 (0.1-1.2) X10*3/uL Platelet Estimate SLIGHTLY DECREASED (NORMAL) Plt Morphology Comment NORM RBC Morphology NORMAL Smear Tech's Comments MANUAL DIFF PT 11.8 (10.9-12.4) SEC INR 1.0 (0.9-1.1) Sodium 138 (135-145) mmol/L Potassium 4.0 (3.3-5.1) mmol/L Chloride 107 (96-108) mmol/L Carbon Dioxide 22 (22-29) mmol/L Anion Gap 13 (12-20) BUN 19 H (9-16) mg/dL Creatinine 1.27 (0.5-1.4) mg/dL Estim Creat Clear Calc 58.9 Estimated GFR 56 Random Glucose 131 H (60-115) mg/dL Lactic Acid 1.2 (0.5-2.0) mmol/L Calcium 8.9 D (8.4-10.2) mg/dL Magnesium 1.7 (1.6-2.6) mg/dL Total Bilirubin 0.6 (0.0-1.0) mg/dL Direct Bilirubin 0.2 (0.0-0.5) mg/dL AST 44 H (5-37) U/L ALT 30 (0-40) U/L Alkaline Phosphatase 78 (39-117) U/L Troponin I High Sens 15.9 35.7 H D (<3.5-35.0) ng/L B-Natriuretic Peptide 82 (<100) pg/mL Total Protein 7.3 (6.5-8.0) g/dL Albumin 4.6 (3.5-5.0) g/dL Lipase 26 (8-78) U/L Urine Color Yellow Urine Appearance Clear Urine pH 5.5 (5.0-9.0) Ur Specific Ute 1.025 (1.005-1.025) Urine Protein Trace (Neg-Trace) mg/dL Urine Glucose (UA) Negative (Negative) mg/dL Urine Ketones Trace (Negative) mg/dL Urine Blood Negative (Negative) Urine Nitrite Negative (Negative) Ur Leukocyte Esterase Negative (Negative) Independent Interpretation I performed an independent interpretation of an: EKG (Sinus tachycardia rate of 107 beats minute.) and Plain X-Ray (No focal infiltrates) Attestation Attending Attestation: I was personally present and available for consultation in the ED. I have reviewed everything on the chart that is available and agree with the documentation provided by the LISA including discussion about the assessment, treatment plan and discussion. Based on medical record the care appears appropriate. Discharge Plan Discharge Clinical Impression: Influenza A, Sepsis Patient Disposition: Still a Patient Interventions: Admission Worksheet (ED) Last Done: 09/30/24 23:50 Discharge Date/Time: 10/01/24 00:41
--- NOTE | 2024-09-30 16:14 | ECG_ITS ---
Test Reason : NAUSEA/VOMITING Blood Pressure : / mmHG Vent. Rate : 107 BPM Atrial Rate : 107 BPM P-R Int : 168 ms QRS Dur : 084 ms QT Int : 272 ms P-R-T Axes : 063 016 060 degrees QTc Int : 363 ms Sinus tachycardia Otherwise normal ECG No previous ECGs available Referred By: Yessy Vazquez Electronically Signed By:EMILI PEREZ
--- OUTSIDE RECORDS SUMMARY | 2024-09-30 16:34 | XMS_ITS | Clinical Summary ---
Author Organization Unknown Care Team Providers Care Aeronautical Engineer Name Role Phone JASMIN TERRA COTTA SETTER, JAMES Unavailable Unavailable ARACELI RN, ELIANE Unavailable Unavailable KYLEE PT, SHANTAL Unavailable Unavailable IVANIA DIRECTOR OF HOTEL OPERATIONS, MODE Unavailable Unavailable STANISLAV MURRELLN, SOCORRO Unavailable Unavailabl e SPAFFORD OT, TEMO Unavailable Unavailable CONDINO LAURYN/SARKAR, SUNSHINE Unavailable Unav ailable Payers Payer Name Policy Type Policy Number Effective Date Expira tion Date MEDICARE.NGS.PDGM [id number] Problems Condition Name Condition Details Condition Category [...] HISTORY OF FALLING Active 11-15 00:00: 00 CASH CLERK (CURRENT) USE OF ASPIRIN Active 11-15 00:00: 00 CASH CLERK (CURRENT) USE OF OPIATE ANALGESIC Active 11-15 00:00: 00 HALFWAY (CURRENT) USE OF NON-STEROIDA L NON-INFLAM (NSAID) [...] 11-09 00:00: 00 11-15 00:00 :00 No [id number] Per instruc tions Per instructio ns (route: oral) Med Classific ation: Cardiovas cular Therapy Agents oxycodone 5 mg tablet 10-28 00:00: 00 11-15 00:00 :00 No [id number] Per instruc tions Per instructio ns (route: oral) Med Classific ation: Analgesic , Anti-infl ammatory or Antipyret ic amlodipine 5 mg tablet 11-15 00:00: 00 Yes [id number] HTN 1 tablet 2 TIMES DAILY 1 tablet 2 TIMES DAILY (route: oral) Med Classific ation: Cardiovas cular Therapy Agents aspirin 81 mg tablet,kei yed release 11-15 00:00: 00 11-25 23:59 :00 No [id number] BLOOD THINNER 1 tablet 2 TIMES DAILY 1 tablet 2 TIMES DAILY (route: oral) Med Classific ation: Hematolog ical Agents aspirin 81 mg tablet,kei yed release 16 00:00: 00 Yes [id number] BLOOD THINNER 1 tablet DAILY 1 tablet DAILY (route: oral) Med Classific ation: Hematolog ical Agents atorvastati n 40 mg tablet 2-05 00:00: 00 Yes [id number] HIGH CHOLESTEROL 1 tablet DAILY 1 tablet DAILY (route: oral) Med Classific ation: Cardiovas cular Therapy Agents celecoxib 200 mg capsule 2- 00:00: 00 Yes [id number] DISCOMFORT 1 capsule 2 TIMES DAILY 1 capsule 2 TIMES DAILY (route: oral) Med Classific ation: Analgesic , Anti-infl ammatory or Antipyret ic cholecalcif tiff (vitamin D3) 25 mcg (1,000 unit) tablet 2- 00:00: 00 Yes [id number] SUPPLEMENT 2 tablet DAILY 2 tablet DAILY (route: oral) Med Classific ation: Electroly te Balance-N utritiona l Products Colace 100 mg capsule 2- 00:00: 00 Yes [id number] STOOL SOFTENER 1 capsule 2 TIMES DAILY 1 capsule 2 TIMES DAILY (route: oral) Med Classific ation: Gastroint estinal Therapy Agents finasteride 5 mg tablet 2- 00:00: 00 Yes [id number] BPH 1 tablet DAILY 1 tablet DAILY (route: oral) Med Classific ation: Genitouri nary Therapy gabapentin 300 mg capsule 2- 00:00: 00 Yes [id number] DISCOMFORT 1 capsule 3 TIMES DAILY 1 capsule 3 TIMES DAILY (route: oral) Med Classific ation: Central Nervous System Agents losartan 100 mg tablet 2- 00:00: 00 Yes [id number] HEART DISEASE 1 tablet DAILY 1 tablet DAILY (route: oral) Med Classific ation: Cardiovas cular Therapy Agents methocarbam ol 500 mg tablet 2- 00:00: 00 Yes [id number] MUSCLE SPASM 1 tablet 3 TIMES DAILY 1 tablet 3 TIMES DAILY (route: oral) Med Classific ation: Locomotor System oxycodone 5 mg tablet 2-05 00:00: 00 Yes [id number] PAIN 1 tablet EVERY 4 HOURS 1 tablet EVERY 4 HOURS (route: oral) Med Classific ation: Analgesic , Anti-infl ammatory or Antipyret ic tamsulosin 0.4 mg capsule 11-15 00:00: 00 Yes [id number] BPH 1 capsule DAILY 1 capsule DAILY (route: oral) Med Classific ation: Genitouri nary Therapy Tylenol 325 mg tablet 11-15 00:00: 00 Yes [id number] DISCOMFORT 2 tablet 2 TIMES DAILY 2 [...] ADMISSION AND PRN FOR FOR RN TO ASSESS/DREDGEMASTER TO OBSERVE PATIENT, WITH NOTIFICATION TO THE [...] ADMISSION AND PRN FOR FOR RN TO ASSESS/DREDGEMASTER TO OBSERVE PATIENT, WITH NOTIFICATION TO THE [...] DETERIORATION, COMPLICATIONS, OR INFECTION TO RN CLINICAL SEO MANAGER AND/OR PHYSICIAN. ORTHOPEDIC SURGICAL AFTERCARE (PT) MAY [...] DETERIORATION, COMPLICATIONS, OR INFECTION TO RN CLINICAL SEO MANAGER AND/OR PHYSICIAN. ORTHOPEDIC SURGICAL AFTERCARE (PT) MAY [...] 2023-12-13 00:00:00 Outpatient NEW ADMISSION [facility] [id number] 2023-12-13 00:00:00 DISCHARGE TO HOME OR SELF CARE INDEPENDEN T IN THE [facility] ONLY - OUT PATIENT 93.33
[2024-09-30] MEDS: ondansetron HCL 4 MG/2 ML VIAL IVPUSH (16:36)
[2024-09-30 16:39] LABS: Hemoglobin 13.6 g/dl (14.0-18.0); PLT CLUMP 1
[2024-09-30] MEDS: 0.9 % Sodium Chloride 2,857.62 ML 2857.62 ML IV (16:40)
[2024-09-30] MEDS: Acetaminophen 325 MG TABLET 975 MG PO (16:40)
[2024-09-30 16:41] LABS: Hematocrit 40.7 % (42.0-52.0); Mean Corpuscular HGB Conc 33.4 g/dl (31.0-36.0); Mean Corpuscular Hemoglobin 29.6 pg (27.0-33.0); Mean Corpuscular Volume 88.5 fL (80.0-98.0); Mean Platelet Volume 10.7 fL (9.4-12.4); Red Cell Distribution Width 13.2 % (11.0-16.0); White Blood Count 8.6 X10*3/uL (4.8-10.8)
[2024-09-30 16:42] LABS: Platelet Count 133 X10*3/uL (160-400)
[2024-09-30 16:46] LABS: Prothrombin Time 11.8 SEC (10.9-12.4)
[2024-09-30] MEDS: Piperacillin Sodium/Tazobactam 3.375 GM in 0.9 % Sodium Chloride 50 ML IV (16:51)
[2024-09-30 16:53] LABS: Lactic Acid 1.2 mmol/L (0.5-2.0)
[2024-09-30 16:56] LABS: Albumin Level 4.6 g/dL (3.5-5.0); Alkaline Phosphatase 78 U/L (39-117); Anion Gap 13 (12-20); Aspartate Amino Transferase 44 U/L (5-37); Bilirubin Direct 0.2 mg/dL (0.0-0.5); Bilirubin Total 0.6 mg/dL (0.0-1.0); Blood Urea Nitrogen 19 mg/dL (9-16); Calcium 8.9 mg/dL (8.4-10.2); Carbon Dioxide 22 mmol/L (22-29); Chloride 107 mmol/L (96-108); Creatinine Clr Calc Pharmacy 58.9; Estimated Glomerular Filt Rate 56; Glucose Random 131 mg/dL (60-115); Lipase 26 U/L (8-78); Magnesium 1.7 mg/dL (1.6-2.6); Sodium 138 mmol/L (135-145); Total Protein 7.3 g/dL (6.5-8.0)
--- NOTE | 2024-09-30 16:57 | MHC.EDTECH ---
This pct just assumed care of Patient ,2nd set of blood culture drawn and sent to lab ,ekg taken and was read by Provider ,Patient was change into hospital gown ,vitals taken and Patient is hooked up to registered nurse cardiac .Patient at bedside .
[2024-09-30 16:58] LABS: B Type Natriuretic Peptide 82 pg/mL (<100)
[2024-09-30 17:00] LABS: Troponin-I High Sensitivity 15.9 ng/L (<3.5-35.0)
[2024-09-30 17:07] LABS: Alanine Aminotransferase 30 U/L (0-40)
[2024-09-30] MEDS: Oseltamivir Phosphate 75 MG CAPSULE PO (17:22)
[2024-09-30 17:52] LABS: SLIDE REVIEW MANUAL DIFF
[2024-09-30 18:00] LABS: Neutrophils Percent Manual 64 % (45-73)
[2024-09-30 18:01] LABS: Band Neutrophils Percent 29 % (3-5); Lymphocytes Absolute Manual 0.3 X10*3/uL (1.2-4.9); Lymphocytes Percent Manual 3 % (20-40); Monocytes Absolute Manual 0.3 X10*3/uL (0.1-1.2); Monocytes Percent Manual 4 % (2-11)
[2024-09-30 18:02] LABS: RBC Morphology NORMAL
[2024-09-30 18:04] LABS: Platelet Estimate SLIGHTLY DECREASED (NORMAL); Platelet Morphology Comment NORM
[2024-09-30] MEDS: Ibuprofen 600 MG TABLET PO (18:21)
--- NOTE | 2024-09-30 18:22 | PC.NURSE ---
requested to give med for RN, pt denying pain
[2024-09-30 19:15] LABS: Appearance Urine Clear; Color Urine Yellow; Glucose Urine UA Negative (Negative); Leukocyte Esterase Urine Negative (Negative); Nitrite Urine Negative (Negative); PH 5.5 (5.0-9.0); Specific Gravity - Urine 1.025 (1.005-1.025); Urine Blood Negative (Negative); Urine Ketones Trace mg/dL (Negative); Urine Protein Trace mg/dL (Neg-Trace)
[2024-09-30] MEDS: iohexoL 350 MG/ML 100 ML INFUS..BTL IV (19:28)
--- NOTE | 2024-09-30 19:51 | PC.NURSE ---
pt returned from CT, reporting chest tightness just prior to going to CT, pt estimates 1 hour. provider aware
--- NOTE | 2024-09-30 20:03 | PC.NURSE ---
sepsis fluids completed
[2024-09-30 20:20] LABS: Troponin-I High Sensitivity 35.7 ng/L (<3.5-35.0)
[2024-09-30] MEDS: Albuterol Sulfate 2.5 MG, Albuterol Sulfate (0.083%) 2.5 MG 5 MG INHALE (20:29)
[2024-09-30] MEDS: methylPREDNISolone Sod Succ 125 MG/2 ML VIAL IVPUSH (20:39)
--- NOTE | 2024-09-30 20:45 | PC.NURSE ---
pt reporting chest tightness feels better after resp. treatment
--- NOTE | 2024-09-30 20:58 | MHC.EDTECH ---
Patient was given chicken salad sandwich ,pudding and chauncey kimberli for snack .
--- NOTE | 2024-09-30 21:15 | P.HPHOSP_ITS ---
History of Present Illness Date of Service: 09/30/24 Attending physician on admission: Lexy Gross Chief Complaint: Abd pain and vomiting Pt is a 74-year-old male with a PMH significant for?COPD not on home O2, HTN, HLD, BPH, osteoporosis, aortic stenosis s/p TAVR with bioprosthetic valve, and CAD who presents to the ED with?weakness, chills, SOB, and productive cough x2-3 days. Patient reports symptoms began 1 week ago with increased wheezing not fully alleviated by home inhalers. Then 2 days ago patient began to have productive cough which significantly worsened yesterday when he also felt weak, fatigued, and had shaking chills. Initially presented to walk-in clinic this morning where he was diagnosed with likely bacterial sinus infection and bronchitis with concerns for early pneumonia and started on Augmentin and prednisone. Patient states took 1st antibiotic with lunch this afternoon and experienced 1 episode of vomiting 1 hour later. No abdominal pain or diarrhea. In the ED pt was febrile up to 102.5, tachycardic up to 113, tachypneic up to 30, with soft BP as low as 100/36, and satting at 86% on RA.. Labs were significant for testing positive for flu A, bandemia of 29, AST 44, and initial troponin 15.9 with repeat 35.7. UA negative for UTI. CXR showed no acute cardiopulmonary process. CTA of chest negative for acute or chronic pulmonary embolism. CT of abdomen and pelvis found fluid-filled small bowel loops which may be related to enteritis or disordered motility. EKG demonstrated sinus tachycardia of 107 without evidence of significant ST elevations or depressions. Pt was treated with ondansetron, acetaminophen, IVF, Tamiflu, ibuprofen, DuoNebs, Solu-Medrol, and Zosyn. Pt will be admitted to the hospital for treatment and further evaluation of acute hypoxic respiratory failure and sepsis in the setting of acute flu infection with underlying COPD exacerbation and question of enteritis. Review of Systems 2 Review of Systems: Negative except for that which is stated in the [facility] Medical History HTN (hypertension) Vaccination refused by patient Acute hypoxic respiratory failure Osteoarthritis of right hip Arthritis Enlarged prostate Cough Elevated cholesterol HTN (hypertension) Right shoulder pain Non-rheumatic aortic stenosis Severe aortic stenosis Diverticulosis Umbilical hernia Deformity of left hand Systolic murmur Smoker COPD (chronic obstructive pulmonary disease) Skin cancer Rectus diastasis Family History Father Unknown family medical history Mother No problems noted. Surgical History Hx of hand surgery H/O colonoscopy Status post transcatheter aortic valve replacement (TAVR) using bioprosthesis Aortic valve replaced S/P cardiac catheterization History of left hip replacement Social History Household Members: Spouse Housing: House Are you a primary director of home care hospice to a significant other at home: No Do you presently have visiting nurse or other home services: No Alcohol intake: never Patient Tobacco Use Status: Current everyday Tobacco user Tobacco use type: Cigarette Cigarettes Per Day: 10 Years Smoked: 55 Smoked in Last 30 Days: No e-Cigarette/Vaping Use: Never Used Second Hand Smoke Exposure: No Use of substances other than those prescribed or required for medical reasons: No Advance Directives: No Advance Directives Information Provided: No Nutrition Risks: No Nutritional Risk service: No Current occupational status: employed Cognitive needs: No Hearing needs: No Vision needs: Yes Meds Allergies Allergy/AdvReac Type Severity Reaction Status Date / Time formaldehyde [FORMALDEHYDE] Allergy Unknown HIVES Verified 09/30/24 16:13 lanolin Allergy Hives Verified 09/30/24 16:13 propylene glycol Allergy Rash Verified 09/30/24 16:13 a steroid cream; he is not Allergy Unknown Unknown Uncoded 09/30/24 16:13 [employer] Allergy Unknown Unknown Uncoded 09/30/24 16:13 Active Medications: Current Medications Acetaminophen (Acetaminophen 325 Mg Tablet) 650 mg PO Q6H PRN PRN Reason: Pain, Mild (Pain Scale 1-3), fever or headache Albuterol/Ipratropium (Albuterol/Iprat 2.5/0.5mg 3 Ml Ampul.Neb) 3 ml INHALE RQ4H WHILE AWAKE RODRIGUEZ Albuterol/Ipratropium (Albuterol/Iprat 2.5/0.5mg 3 Ml Ampul.Neb) 3 ml INHALE Q4H PRN PRN Reason: Wheezing Calcium Carbonate (Calcium Carbonate 750 Mg Tab.Chew) 750 mg PO Q4H PRN PRN Reason: Heartburn Enoxaparin Sodium (Enoxaparin Sodium 40 Mg/0.4 Ml Syringe) 40 mg SUBCUT Q24H RODRIGUEZ Piperacillin Sod/Tazobactam (Sod 4.5 gm/ Sodium Chloride) 100 mls @ 200 mls/hr IV Q6H RODRIGUEZ Magnesium Hydroxide (Milk Of Magnesia 30 Ml Oral.Susp) 30 ml PO DAILY PRN PRN Reason: Constipation Melatonin (Melatonin 3 Mg Tablet) 6 mg PO BEDTIME PRN PRN Reason: Insomnia Ondansetron HCl (Ondansetron Hcl 4 Mg/2 Ml Vial) 4 mg IVPUSH Q8H PRN PRN Reason: Nausea and Vomiting Oseltamivir Phosphate (Oseltamivir Phosphate 75 Mg Capsule) 75 mg PO Q12H RODRIGUEZ Stop: 10/05/24 19:01 Sodium Chloride (0.9 % Sodium Chloride Flush 3 Ml Syringe) 3 ml IVFLUSH QSHIFT [facility] Home Medications ?Medication ?Instructions ?Recorded ?Confirmed ?Last Taken ?Type finasteride 5 mg tablet 5 mg PO BEDTIME 08/08/20 08/24/24 Unknown History cholecalciferol (vitamin D3) 125 125 mcg PO DAILY 07/29/22 08/24/24 Unknown History mcg (5,000 unit) capsule Physical Exam 2 Vital Signs and Narrative: Vital Signs: Last Vital Signs Temp 99.1 F 09/30/24 20:48 Pulse 79 09/30/24 20:48 Resp 20 09/30/24 20:48 BP 100/36 L 09/30/24 20:48 Pulse Ox 95 09/30/24 20:48 O2 Del Method Nasal Cannula 09/30/24 20:48 O2 Flow Rate 3 09/30/24 20:48 BMI result Body Mass Index 31.0 General: AOx3, no acute distress Resp: Diminished with diffuse bilateral wheezing. Audibly wheezing CVS: S1, S2, RRR GI: +BS, NT, no distention Skin: Warm, dry Neuro: Cranial nerves II-XII grossly intact bilaterally. Motor grossly intact bilaterally Extremities: 1+ bilateral pitting edema Psych: Appropriate affect Results Labs 09/30/24 16:32 09/30/24 16:32 Labs: Laboratory Results - last 24 hr 12/21/24 12/21/24 12/21/24 16:32 19:08 19:54 MCV 88.5 MCH 29.6 MCHC 33.4 RDW 13.2 Plt Count 133 L MPV 10.7 Immature Gran % (Auto) Cancelled Neut % (Auto) Cancelled Lymph % (Auto) Cancelled [place] % (Auto) Cancelled Eos % (Auto) Cancelled Baso % (Auto) Cancelled Lymph # (Auto) Cancelled [place] # (Auto) Cancelled Eos # (Auto) Cancelled Baso # (Auto) Cancelled Abs Immat Gran (auto) Cancelled Absolute Neuts (auto) Cancelled Absolute Nucleated RBC 0.000 Nucleated RBC % (auto) 0.0 Neutrophils % (Manual) 64 Band Neutrophils % 29 H Lymphocytes % (Manual) 3 L Monocytes % (Manual) 4 Abs Neuts (Manual) 8.0 Lymphocytes # (Manual) 0.3 L Monocytes # (Manual) 0.3 Platelet Estimate SLIGHTLY DECREASED Plt Morphology Comment NORM RBC Morphology NORMAL Smear Tech's Comments MANUAL DIFF PT 11.8 INR 1.0 Anion Gap 13 Estim Creat Clear Calc 58.9 Estimated GFR 56 Random Glucose 131 H Lactic Acid 1.2 Calcium 8.9 D Magnesium 1.7 Total Bilirubin 0.6 Direct Bilirubin 0.2 AST 44 H ALT 30 Alkaline Phosphatase 78 Troponin I High Sens 15.9 35.7 H D B-Natriuretic Peptide 82 Total Protein 7.3 Albumin 4.6 Lipase 26 Urine Color Yellow Urine Appearance Clear Urine pH 5.5 Ur Specific [place] 1.025 Urine Protein Trace Urine Glucose (UA) Negative Urine Ketones Trace Urine Blood Negative Urine Nitrite Negative Ur Leukocyte Esterase Negative Imaging Radiologist's Impressions: Impressions Chest X-Ray 09/30/24 17:00 IMPRESSION: Clear lungs. Electronically signed by: Inocencia Lunsford MD 09/30/2024 05:39 PM [facility] Abdomen/Pelvis CT 09/30/24 19:38 IMPRESSION: No evidence for acute or chronic pulmonary embolism. VTE: negative EXAMINATION: CT ABDOMEN AND PELVIS WITH CONTRAST CLINICAL INFORMATION: Right-sided pain, sepsis COMPARISON: None available. TECHNIQUE: Multidetector volumetric images were obtained from the superior aspect of the liver through the pubic symphysis following administration 85 mL of Omnipaque 350 intravenous contrast. Sagittal and coronal reformatted images were obtained on the technologist's workstation. Oral contrast: No This CT examination was performed using dose optimization techniques as appropriate, variously including the following: *Automated exposure control *Adjustment of mA and/or kV according to patient size (this includes techniques or standardized protocols for targeted exams where dose is matched to indication/reason for exam; i.e. extremities or head) *Use of iterative reconstruction technique DLP: 620 mGy-cm FINDINGS: LUNG BASES: The visualized lung bases are unremarkable. LIVER, GALLBLADDER, AND BILIARY TREE: The liver is normal in size, shape, and attenuation. No focal hepatic lesion or biliary ductal dilatation is present. Small layering stones without acute inflammatory changes. PANCREAS: Unremarkable. SPLEEN: Unremarkable. ADRENAL GLANDS: Unremarkable. KIDNEYS AND URETERS: The kidneys are normal in size, shape, and attenuation. No hydronephrosis, hydroureter, or calculi seen. No perinephric stranding. BLADDER: Decompressed and difficult to assess. GASTROINTESTINAL TRACT: Fluid-filled small bowel loops throughout without evidence for any definite inflammatory changes. No obstruction. Moderate stool retention throughout the colon. ABDOMINAL WALL: No significant hernia is appreciated. LYMPH NODES: Normal. VASCULAR: Unremarkable. PELVIC VISCERA: Limited assessment due to streak artifact from patient's bilateral hip prosthesis. OSSEOUS STRUCTURES: Unremarkable. IMPRESSION: Fluid-filled small bowel loops which may be related to enteritis or disordered motility. No obstruction. No specific findings of any right-sided abnormality to explain patient's symptoms. Incidental gallstones. Fleischner guidelines were followed. Electronically signed by: Baljeet Keith MD 09/30/2024 08:34 PM [facility] Chest CTA 09/30/24 19:38 IMPRESSION: No evidence for acute or chronic pulmonary embolism. VTE: negative EXAMINATION: CT ABDOMEN AND PELVIS WITH CONTRAST CLINICAL INFORMATION: Right-sided pain, sepsis COMPARISON: None available. TECHNIQUE: Multidetector volumetric images were obtained from the superior aspect of the liver through the pubic symphysis following administration 85 mL of Omnipaque 350 intravenous contrast. Sagittal and coronal reformatted images were obtained on the technologist's workstation. Oral contrast: No This CT examination was performed using dose optimization techniques as appropriate, variously including the following: *Automated exposure control *Adjustment of mA and/or kV according to patient size (this includes techniques or standardized protocols for targeted exams where dose is matched to indication/reason for exam; i.e. extremities or head) *Use of iterative reconstruction technique DLP: 620 mGy-cm FINDINGS: LUNG BASES: The visualized lung bases are unremarkable. LIVER, GALLBLADDER, AND BILIARY TREE: The liver is normal in size, shape, and attenuation. No focal hepatic lesion or biliary ductal dilatation is present. Small layering stones without acute inflammatory changes. PANCREAS: Unremarkable. SPLEEN: Unremarkable. ADRENAL GLANDS: Unremarkable. KIDNEYS AND URETERS: The kidneys are normal in size, shape, and attenuation. No hydronephrosis, hydroureter, or calculi seen. No perinephric stranding. BLADDER: Decompressed and difficult to assess. GASTROINTESTINAL TRACT: Fluid-filled small bowel loops throughout without evidence for any definite inflammatory changes. No obstruction. Moderate stool retention throughout the colon. ABDOMINAL WALL: No significant hernia is appreciated. LYMPH NODES: Normal. VASCULAR: Unremarkable. PELVIC VISCERA: Limited assessment due to streak artifact from patient's bilateral hip prosthesis. OSSEOUS STRUCTURES: Unremarkable. IMPRESSION: Fluid-filled small bowel loops which may be related to enteritis or disordered motility. No obstruction. No specific findings of any right-sided abnormality to explain patient's symptoms. Incidental gallstones. Fleischner guidelines were followed. Electronically signed by: Baljeet Keith MD 09/30/2024 08:34 PM [facility] Assessment and Plan (1) Influenza A: Status: Acute (2) Hypoxia: Status: Acute Plan Pt is a 74-year-old male with a PMH significant for?COPD not on home O2, HTN, HLD, BPH, osteoporosis, aortic stenosis s/p TAVR with bioprosthetic valve, and CAD who presents to the ED with?weakness, chills, SOB, and productive cough x2-3 days. Pt will be admitted to the hospital for treatment and further evaluation of acute hypoxic respiratory failure and sepsis in the setting of acute flu infection with underlying COPD exacerbation and question of enteritis. Acute hypoxic respiratory failure in the setting of influenza a infection with underlying COPD exacerbation Patient desatting into 80s on RA, not on home O2 Will treat with DuoNebs, Solu-Medrol, Tamiflu, benzonatate Titrate supplemental O2 >92, wean as tolerated Monitor respiratory status Question of enteritis CT of abdomen found fluid-filled small bowel loops which may be related to enteritis or disordered motility Patient with 1 episode of vomiting 1 hour after taking 1st antibiotic Denies abdominal pain or diarrhea Will empirically treat with Zosyn for now, started 09/30/2024 Viral sepsis Patient with fever, tachycardia, tachypnea, and bandemia of 29; lactic acid WNL Likely secondary to influenza infection, less likely viral enteritis Patient given IVF and started broad-spectrum antibiotics in the ED Will empirically cover with Zosyn for now HTN BP has been soft, hold antihypertensives for now Resume as warranted CAD/HLD Continue aspirin, statin BPH Hold finasteride due to soft BP Resume as warranted Full Code Attending:? DVT Prophylaxis: Lovenox Med rec pending Pt will require a hospitalization of at least two nights for treatment of acute hypoxic respiratory failure in the setting of acute flu infection with underlying COPD exacerbation and question of possible enteritis. Patient will require hospital level care for administration of IV steroids, breathing treatments, supplemental oxygen, and currently empiric antibiotics. Quality Stroke Does the patient have a stroke diagnosis?: No VTE Prior VTE?: No VTE Risk Level:: Medical - moderate - high VTE Device Contraindication: Treatment Not Indicated VTE Drug Contraindication: N/A - Med Ordered
[2024-09-30] MEDS: Enoxaparin Sodium 40 MG/0.4 ML SYRINGE SUBCUT (22:08)
[2024-09-30] MEDS: Piperacillin Sodium/Tazobactam 4.5 GM in 0.9 % Sodium Chloride 100 ML IV (22:09)
[2024-10-01] VITALS (9 sets, daily range): BP systolic 110–135; BP diastolic 55–62; PULSE 65–78; RESP 15–20; TEMP 36.4–37.1; O2SAT 88–93; BMI 31.9
--- NOTE | 2024-10-01 00:08 | PC.NURSE ---
pt is resting comfortably, denies chest pain/tightness, breathing is unlabored, HR WNL, BP remains soft. report written for admission.
[2024-10-01] MEDS: Albuterol/Iprat 2.5/0.5MG 3 ML AMPUL.NEB INHALE ×3 (03:35→19:41)
[2024-10-01] MEDS: Piperacillin Sodium/Tazobactam 4.5 GM in 0.9 % Sodium Chloride 100 ML IV ×4 (04:11→22:39)
--- NOTE | 2024-10-01 07:10 | PC.ADMIT ---
Patient is alert/oriented x4, ambulated with standby assist to br, weak but steady. Patient appears sweaty, skin is intact with known small cyst mid back. Tolerating fluids/diet, ate a sandwich and drinking fluids. VSS, non tele. Lungs dim with expiratory wheezing on 4L oxygen. Sats are 91%. Patient expressing sob at 0400, respiratory administered updraft which helped his breathing. Abdomen soft, non tender, positive bowel sounds. Denies cp, n/v. No issues voiding. Patient is on contact/droplet precautions. No acute events since admit, will continue to monitor.
[2024-10-01 07:34] LABS: Basophils Percent Auto 0.4 % (0-2); Hematocrit 36.2 % (42.0-52.0); Hemoglobin 11.5 g/dl (14.0-18.0); Imm Gran Abs Auto 0.07 X10*3/uL (0.00-0.03); Imm Gran Pct Auto 0.7 % (0.0-0.4); Lymphocytes Absolute Auto 0.4 X10*3/uL (1.2-4.9); Lymphocytes Percent Auto 3.6 % (20-40); MANUAL DIFF FLAG SCAN; Mean Corpuscular HGB Conc 31.8 g/dl (31.0-36.0); Mean Corpuscular Hemoglobin 29.1 pg (27.0-33.0); Mean Corpuscular Volume 91.6 fL (80.0-98.0); Mean Platelet Volume 11.7 fL (9.4-12.4); Monocytes Absolute Auto 0.3 X10*3/uL (0.1-1.2); Monocytes Percent Auto 3.2 % (2-11); Neutrophils Absolute Auto 8.8 x10*3/uL (2.0-8.3); Neutrophils Percent Auto 92.1 % (45-73); Platelet Count 120 X10*3/uL (160-400); Red Blood Count 3.95 X10*6/uL (4.60-5.80); Red Cell Distribution Width 13.5 % (11.0-16.0); SCAN SMEAR FLAG 1; White Blood Count 9.6 X10*3/uL (4.8-10.8)
--- NOTE | 2024-10-01 07:39 | HO.PM.IMPN ---
Subjective Subjective Date of Service: 10/01/24 Interval History: f/u on acute hypoxic resp failure due to influeza and copd exacerbation he's feeling better than yesterday Physical Exam Vital Signs: Vital Signs: Last Vital Signs Temp 98.5 F 10/01/24 07:25 Pulse 76 10/01/24 07:25 Resp 17 10/01/24 07:25 BP 120/60 10/01/24 07:25 Pulse Ox 92 10/01/24 07:25 O2 Del Method Nasal Cannula 10/01/24 07:25 O2 Flow Rate 1 10/01/24 07:25 BMI result Body Mass Index 31.9 Const: Other: General: AO X 3, no acute distress Resp: CTA bilateral CVS: S1,S2,RRR GI: +BS, NT, no distention Skin: No rash Neuro: motor grossly intact Psych: appropriate affect Objective Data Active Medications Acetaminophen (Acetaminophen 325 Mg Tablet) 650 mg PO Q6H PRN PRN Reason: Pain, Mild (Pain Scale 1-3), fever or headache Albuterol/Ipratropium (Albuterol/Iprat 2.5/0.5mg 3 Ml Ampul.Neb) 3 ml INHALE RQ4H WHILE AWAKE [facility] Albuterol/Ipratropium (Albuterol/Iprat 2.5/0.5mg 3 Ml Ampul.Neb) 3 ml INHALE Q4H PRN PRN Reason: Wheezing Last Admin: 10/01/24 03:35 Dose: 3 ml Documented By: YOLANDA Benzonatate (Benzonatate 100 Mg Capsule) 100 mg PO TID PRN PRN Reason: Cough Calcium Carbonate (Calcium Carbonate 750 Mg Tab.Chew) 750 mg PO Q4H PRN PRN Reason: Heartburn Enoxaparin Sodium (Enoxaparin Sodium 40 Mg/0.4 Ml Syringe) 40 mg SUBCUT Q24H [facility] Last Admin: 09/30/24 22:08 Dose: 40 mg Documented By: CHIDI Piperacillin Sod/Tazobactam (Sod 4.5 gm/ Sodium Chloride) 100 mls @ 200 mls/hr IV Q6H [facility] Last Infusion: 10/01/24 04:45 Dose: Infused Documented By: BEBE Magnesium Hydroxide (Milk Of Magnesia 30 Ml Oral.Susp) 30 ml PO DAILY PRN PRN Reason: Constipation Melatonin (Melatonin 3 Mg Tablet) 6 mg PO BEDTIME PRN PRN Reason: Insomnia Methylprednisolone Sodium Succinate (Methylprednisolone Sod Succ 40 Mg/Ml Vial) 40 mg IVPUSH Q12H RODRIGUEZ Ondansetron HCl (Ondansetron Hcl 4 Mg/2 Ml Vial) 4 mg IVPUSH Q8H PRN PRN Reason: Nausea and Vomiting Oseltamivir Phosphate (Oseltamivir Phosphate 30 Mg Capsule) 30 mg PO BID [facility]ODRIGUEZ Stop: 10/05/24 21:01 Sodium Chloride (0.9 % Sodium Chloride Flush 3 Ml Syringe) 3 ml IVFLUSH QSHIFT [facility] Last Admin: 10/01/24 05:25 Dose: Not Given Documented By: BEBE Non-Admin Reason: IV Running Labs 10/01/24 06:32 10/01/24 06:32 Labs: Laboratory Results - last 24 hr 09/30/24 09/30/24 09/30/24 16:32 19:08 19:54 MCV 88.5 MCH 29.6 MCHC 33.4 RDW 13.2 Plt Count 133 L MPV 10.7 Immature Gran % (Auto) Cancelled Neut % (Auto) Cancelled Lymph % (Auto) Cancelled [place] % (Auto) Cancelled Eos % (Auto) Cancelled Baso % (Auto) Cancelled Lymph # (Auto) Cancelled [place] # (Auto) Cancelled Eos # (Auto) Cancelled Baso # (Auto) Cancelled Abs Immat Gran (auto) Cancelled Absolute Neuts (auto) Cancelled Absolute Nucleated RBC 0.000 Nucleated RBC % (auto) 0.0 Neutrophils % (Manual) 64 Band Neutrophils % 29 H Lymphocytes % (Manual) 3 L Monocytes % (Manual) 4 Abs Neuts (Manual) 8.0 Lymphocytes # (Manual) 0.3 L Monocytes # (Manual) 0.3 Platelet Estimate SLIGHTLY DECREASED Plt Morphology Comment NORM RBC Morphology NORMAL Smear Tech's Comments MANUAL DIFF PT 11.8 INR 1.0 Anion Gap 13 Estim Creat Clear Calc 58.9 Estimated GFR 56 Random Glucose 131 H Lactic Acid 1.2 Calcium 8.9 D Magnesium 1.7 Total Bilirubin 0.6 Direct Bilirubin 0.2 AST 44 H ALT 30 Alkaline Phosphatase 78 Troponin I High Sens 15.9 35.7 H D B-Natriuretic Peptide 82 Total Protein 7.3 Albumin 4.6 Lipase 26 Urine Color Yellow Urine Appearance Clear Urine pH 5.5 Ur Specific [place] 1.025 Urine Protein Trace Urine Glucose (UA) Negative Urine Ketones Trace Urine Blood Negative Urine Nitrite Negative Ur Leukocyte Esterase Negative Assessment and Plan (1) Influenza: Status: Acute Plan 74-year-old male with a PMH significant for?COPD not on home O2, HTN, HLD, BPH, osteoporosis, aortic stenosis s/p TAVR with bioprosthetic valve, and CAD who presents to the ED with?weakness, chills, SOB, and productive cough x2-3 days. Pt will be admitted to the hospital for treatment and further evaluation of acute hypoxic respiratory failure and sepsis in the setting of acute flu infection with underlying COPD exacerbation and question of enteritis. Acute hypoxic respiratory failure due to influenza causing COPD exacerbation Supplemental O2, goal O2 88 to 92 DuoNebs, Solu-Medrol, Tamiflu, benzonatate continuous O2 monitoring Question of enteritis CT of abdomen found fluid-filled small bowel loops which may be related to enteritis or disordered motility Patient with 1 episode of vomiting 1 hour after taking 1st antibiotic Denies abdominal pain or diarrhea Will empirically treat with Zosyn for now, started 09/30/2024 Viral sepsis Patient with fever, tachycardia, tachypnea, and bandemia of 29; lactic acid WNL Likely secondary to influenza infection, less likely viral enteritis Patient given IVF and started broad-spectrum antibiotics in the ED Will empirically cover with Zosyn for now HTN BP has been soft, hold antihypertensives for now Resume as warranted CAD/HLD Continue aspirin, statin BPH Hold finasteride due to soft BP Resume as warranted Full Code Attending:? DVT Prophylaxis: Lovenox Med rec pending Pt will require a hospitalization of at least two nights for treatment of acute hypoxic respiratory failure in the setting of acute flu infection with underlying COPD exacerbation and question of possible enteritis. Patient will require hospital level care for administration of IV steroids, breathing treatments, supplemental oxygen, and currently empiric antibiotics. Quality Stroke Does the patient have a stroke diagnosis?: No VTE Prior VTE?: No VTE Risk Level:: Medical - moderate - high VTE Device Contraindication: Treatment Not Indicated VTE Drug Contraindication: N/A - Med Ordered
[2024-10-01 07:52] LABS: Anion Gap 12 (12-20); Blood Urea Nitrogen 25 mg/dL (9-16); Calcium 7.7 mg/dL (8.4-10.2); Carbon Dioxide 21 mmol/L (22-29); Chloride 110 mmol/L (96-108); Creatinine Clr Calc Pharmacy 55.8; Estimated Glomerular Filt Rate 51; Glucose Random 204 mg/dL (60-115); Potassium 4.1 mmol/L (3.3-5.1); Sodium 139 mmol/L (135-145)
[2024-10-01 07:57] LABS: SLIDE REVIEW VERIFIED
[2024-10-01] MEDS: 0.9 % Sodium Chloride Flush 3 ML SYRINGE IVFLUSH ×3 (07:57→20:18)
[2024-10-01] MEDS: methylPREDNISolone Sod Succ 40 MG/ML VIAL IVPUSH ×2 (07:57→20:18)
[2024-10-01] MEDS: Oseltamivir Phosphate 30 MG CAPSULE PO ×2 (07:57→20:17)
--- NOTE | 2024-10-01 08:27 | PHA.MEDREC ---
Pharmacy Consult ? Medication Reconciliation Pharmacy has completed the medication reconciliation. Spoke to patient's girlfriend Rita at bedside, she noted he only takes Celebrex once daily
--- NOTE | 2024-10-01 09:00 | MHC.CM.PN ---
CM met with Patient at bedside; he is on droplet precautions, so IMM was discussed verbally with him and the original was given to Patient and a copy has been placed on the chart. Patient lives in a house with his Friend/ Sheila and he required no services nor DME [facility]. Home self care is the goal and CM has initiated and will follow for dc planning. PCP is Dr. Efraín Perry, Sheila will transport to home, and Friend/Kati is the HCP.
[2024-10-01] MEDS: Magnesium Oxide 400 MG TABLET PO (09:36)
[2024-10-01] MEDS: Aspirin Enteric Coated 81 MG TABLET.DR PO (09:36)
[2024-10-01] MEDS: amLODIPine Besylate 10 MG TABLET PO (09:36)
[2024-10-01] MEDS: Losartan Potassium 50 MG TABLET 100 MG PO (09:36)
[2024-10-01] MEDS: Cholecalciferol (Vitamin D3) 25 MCG TABLET 125 MCG PO (09:36)
[2024-10-01] MEDS: Gabapentin 300 MG CAPSULE PO ×3 (09:36→20:18)
[2024-10-01] MEDS: Celecoxib 200 MG CAPSULE PO (09:37)
[2024-10-01] MEDS: Milk of Magnesia 30 ML ORAL.SUSP PO (09:39)
[2024-10-01] MEDS: Finasteride 5 MG TABLET PO (20:17)
[2024-10-01] MEDS: Tamsulosin HCL 0.4 MG CAPSULE PO (20:17)
[2024-10-01] MEDS: Atorvastatin Calcium 40 MG TABLET PO (20:18)
[2024-10-01] MEDS: Enoxaparin Sodium 40 MG/0.4 ML SYRINGE SUBCUT (20:18)
[2024-10-01] MEDS: Benzonatate 100 MG CAPSULE PO (22:39)
[2024-10-01] MEDS: Throat Lozenge, Medicated LOZENGE 1 LOZENGE MUCOUS MEM (23:04)
[2024-10-02] VITALS (12 sets, daily range): BP systolic 125–155; BP diastolic 56–67; PULSE 68–80; RESP 12–20; TEMP 36.7–37.1; O2SAT 88–97
[2024-10-02] MEDS: Piperacillin Sodium/Tazobactam 4.5 GM in 0.9 % Sodium Chloride 100 ML IV (05:04)
[2024-10-02] MEDS: Throat Lozenge, Medicated LOZENGE 1 LOZENGE MUCOUS MEM ×2 (05:04→10:17)
[2024-10-02] MEDS: Albuterol/Iprat 2.5/0.5MG 3 ML AMPUL.NEB INHALE ×4 (07:27→19:01)
--- NOTE | 2024-10-02 08:32 | HO.PM.IMPN ---
Subjective Subjective Date of Service: 10/02/24 Interval History: f/u on acute hypoxic resp failure due to influeza and copd exacerbation he's feeling better, yet still on O2 Physical Exam Vital Signs: Vital Signs: Last Vital Signs Temp 98.7 F 10/02/24 07:09 Pulse 68 10/02/24 07:27 Resp 18 10/02/24 07:27 BP 155/67 H 10/02/24 07:09 Pulse Ox 94 10/02/24 07:09 O2 Del Method Nasal Cannula 10/02/24 07:09 O2 Flow Rate 3 10/02/24 07:09 BMI result Body Mass Index 31.9 Const: Other: General: AO X 3, no acute distress Resp: rhonchi eldon, normal effort CVS: S1,S2,RRR GI: +BS, NT, no distention Skin: No rash Neuro: motor grossly intact Psych: appropriate affect Objective Data Active Medications Acetaminophen (Acetaminophen 325 Mg Tablet) 650 mg PO Q6H PRN PRN Reason: Pain, Mild (Pain Scale 1-3), fever or headache Albuterol/Ipratropium (Albuterol/Iprat 2.5/0.5mg 3 Ml Ampul.Neb) 3 ml INHALE RQ4H WHILE AWAKE [facility] Last Admin: 10/02/24 07:27 Dose: 3 ml Documented By: DACIA Albuterol/Ipratropium (Albuterol/Iprat 2.5/0.5mg 3 Ml Ampul.Neb) 3 ml INHALE Q4H PRN PRN Reason: Wheezing Last Admin: 10/01/24 03:35 Dose: 3 ml Documented By: YOLANDA Amlodipine Besylate (Amlodipine Besylate 10 Mg Tablet) 10 mg PO DAILY [facility]; Protocol Last Admin: 10/01/24 09:36 Dose: 10 mg Documented By: WES Aspirin (Aspirin Enteric Coated 81 Mg Tablet.) 81 mg PO DAILY [facility] Last Admin: 10/01/24 09:36 Dose: 81 mg Documented By: WES Atorvastatin Calcium (Atorvastatin Calcium 40 Mg Tablet) 40 mg PO BEDTIME [facility] Last Admin: 10/01/24 20:18 Dose: 40 mg Documented By: CARLOS Benzocaine (Throat Lozenge, Medicated Lozenge) 1 lozenge MUCOUS MEM Q2H PRN PRN Reason: Sore Throat Last Admin: 10/02/24 05:04 Dose: 1 lozenge Documented By: CARLOS Benzonatate (Benzonatate 100 Mg Capsule) 100 mg PO TID PRN PRN Reason: Cough Last Admin: 10/01/24 22:39 Dose: 100 mg Documented By: CARLOS Calcium Carbonate (Calcium Carbonate 750 Mg Tab.Chew) 750 mg PO Q4H PRN PRN Reason: Heartburn Celecoxib (Celecoxib 200 Mg Capsule) 200 mg PO DAILY [facility] Last Admin: 10/01/24 09:37 Dose: 200 mg Documented By: WES Enoxaparin Sodium (Enoxaparin Sodium 40 Mg/0.4 Ml Syringe) 40 mg SUBCUT Q24H [facility] Last Admin: 10/01/24 20:18 Dose: 40 mg Documented By: CARLOS Finasteride (Finasteride 5 Mg Tablet) 5 mg PO BEDTIME [facility] Last Admin: 10/01/24 20:17 Dose: 5 mg Documented By: CARLOS Gabapentin (Gabapentin 300 Mg Capsule) 300 mg PO TID [facility] Last Admin: 10/01/24 20:18 Dose: 300 mg Documented By: CARLOS Piperacillin Sod/Tazobactam (Sod 4.5 gm/ Sodium Chloride) 100 mls @ 200 mls/hr IV Q6H [facility] Last Infusion: 10/02/24 05:52 Dose: Infused Documented By: CARLOS Losartan Potassium (Losartan Potassium 50 Mg Tablet) 100 mg PO DAILY [facility]; Protocol Last Admin: 10/01/24 09:36 Dose: 100 mg Documented By: WES Magnesium Hydroxide (Milk Of Magnesia 30 Ml Oral.Susp) 30 ml PO DAILY PRN PRN Reason: Constipation Last Admin: 10/01/24 09:39 Dose: 30 ml Documented By: WES Magnesium Oxide (Magnesium Oxide 400 Mg Tablet) 400 mg PO DAILY [facility] Last Admin: 10/01/24 09:36 Dose: 400 mg Documented By: WES Melatonin (Melatonin 3 Mg Tablet) 6 mg PO BEDTIME PRN PRN Reason: Insomnia Methylprednisolone Sodium Succinate (Methylprednisolone Sod Succ 40 Mg/Ml Vial) 40 mg IVPUSH Q12H [facility] Last Admin: 10/01/24 20:18 Dose: 40 mg Documented By: CARLOS Ondansetron HCl (Ondansetron Hcl 4 Mg/2 Ml Vial) 4 mg IVPUSH Q8H PRN PRN Reason: Nausea and Vomiting Oseltamivir Phosphate (Oseltamivir Phosphate 30 Mg Capsule) 30 mg PO BID [facility] Stop: 10/05/24 21:01 Last Admin: 10/01/24 20:17 Dose: 30 mg Documented By: CARLOS Polyethylene Glycol (Polyethylene Glycol 3350 17 Gm Powd.Pack) 17 gm PO DAILY PRN PRN Reason: Constipation Sodium Chloride (0.9 % Sodium Chloride Flush 3 Ml Syringe) 3 ml IVFLUSH QSHIFT [facility] Last Admin: 10/01/24 20:18 Dose: 3 ml Documented By: CARLOS Tamsulosin HCl (Tamsulosin Hcl 0.4 Mg Capsule) 0.4 mg PO BEDTIME [facility] Last Admin: 10/01/24 20:17 Dose: 0.4 mg Documented By: CARLOS Vitamin D (Cholecalciferol (Vitamin D3) 25 Mcg Tablet) 125 mcg PO DAILY [facility] Last Admin: 10/01/24 09:36 Dose: 125 mcg Documented By: PHANLYM Labs 10/01/24 06:32 10/01/24 06:32 Microbiology Microbiology Results: Microbiology 09/30/24 16:50 Blood Culture - Preliminary Blood - Venous No growth after 24 hours. 09/30/24 16:32 Blood Culture - Preliminary Blood - Venous No growth after 24 hours. Assessment and Plan (1) Influenza: Status: Acute Plan 74-year-old male with a PMH significant for?COPD not on home O2, HTN, HLD, BPH, osteoporosis, aortic stenosis s/p TAVR with bioprosthetic valve, and CAD who presents to the ED with?weakness, chills, SOB, and productive cough x2-3 days. Pt will be admitted to the hospital for treatment and further evaluation of acute hypoxic respiratory failure and sepsis in the setting of acute flu infection with underlying COPD exacerbation and question of enteritis. Acute hypoxic respiratory failure due to influenza causing COPD exacerbation Supplemental O2, goal O2 88 to 92 DuoNebs, Solu-Medrol, Tamiflu, benzonatate continuous O2 monitoring consider home O2 if not improving Question of enteritis CT of abdomen found fluid-filled small bowel loops which may be related to enteritis or disordered motility Patient with 1 episode of vomiting 1 hour after taking 1st antibiotic Denies abdominal pain or diarrhea Will empirically treat with Zosyn for now, started 09/30/2024 Viral sepsis Patient with fever, tachycardia, tachypnea, and bandemia of 29; lactic acid WNL Likely secondary to influenza infection, less likely viral enteritis Patient given IVF and started broad-spectrum antibiotics in the ED has been on empiric zosyn, cxr clear, culture negative. DC Zosyn, empric doxy x 5 days HTN BP has been soft, hold antihypertensives for now Resume as warranted CAD/HLD Continue aspirin, statin BPH Hold finasteride due to soft BP Resume as warranted Full Code . DVT Prophylaxis: Lovenox need for inpt: acute hypoxic resp failure d/t influenza Quality Stroke Does the patient have a stroke diagnosis?: No VTE Prior VTE?: No VTE Risk Level:: Medical - moderate - high VTE Device Contraindication: Treatment Not Indicated VTE Drug Contraindication: N/A - Med Ordered
[2024-10-02] MEDS: Losartan Potassium 50 MG TABLET 100 MG PO (09:01)
[2024-10-02] MEDS: Aspirin Enteric Coated 81 MG TABLET.DR PO (09:01)
[2024-10-02] MEDS: Gabapentin 300 MG CAPSULE PO ×3 (09:01→22:15)
[2024-10-02] MEDS: Magnesium Oxide 400 MG TABLET PO (09:01)
[2024-10-02] MEDS: 0.9 % Sodium Chloride Flush 3 ML SYRINGE IVFLUSH ×3 (09:01→22:16)
[2024-10-02] MEDS: amLODIPine Besylate 10 MG TABLET PO (09:01)
[2024-10-02] MEDS: methylPREDNISolone Sod Succ 40 MG/ML VIAL IVPUSH ×2 (09:01→22:15)
[2024-10-02] MEDS: Cholecalciferol (Vitamin D3) 25 MCG TABLET 125 MCG PO (09:01)
[2024-10-02] MEDS: Celecoxib 200 MG CAPSULE PO (09:01)
[2024-10-02] MEDS: Oseltamivir Phosphate 30 MG CAPSULE PO ×2 (09:02→22:15)
[2024-10-02] MEDS: Doxycycline Monohydrate 100 MG CAPSULE PO ×2 (09:02→22:15)
[2024-10-02] MEDS: Milk of Magnesia 30 ML ORAL.SUSP PO (09:06)
--- NOTE | 2024-10-02 15:14 | MHC.CM.PN ---
Per rounds, pt is not weaned off supplemental O2 yet, requiring continued care. DCP is home self care, CM to follow for DC needs.
--- NOTE | 2024-10-02 15:55 | PC.RT ---
RT took pt on a walk around room. Pt SATs 89-92% on RA. Pt able to talk in full sentences w/o distress. Pt resting in bed on RA SATs 90% at this time.
[2024-10-02] MEDS: Finasteride 5 MG TABLET PO (22:15)
[2024-10-02] MEDS: Tamsulosin HCL 0.4 MG CAPSULE PO (22:15)
[2024-10-02] MEDS: Atorvastatin Calcium 40 MG TABLET PO (22:16)
[2024-10-02] MEDS: Enoxaparin Sodium 40 MG/0.4 ML SYRINGE SUBCUT (22:19)
[2024-10-03] VITALS (11 sets, daily range): BP systolic 126–152; BP diastolic 56–93; PULSE 67–148; RESP 16–20; TEMP 36.6–37.1; O2SAT 90–94
--- NOTE | 2024-10-03 | ECG_ITS ---
Test Reason : Tachycardia Blood Pressure : / mmHG Vent. Rate : 130 BPM Atrial Rate : 000 BPM P-R Int : 000 ms QRS Dur : 090 ms QT Int : 244 ms P-R-T Axes : 000 010 031 degrees QTc Int : 359 ms Atrial fibrillation with rapid ventricular response Abnormal ECG When compared with ECG of 30-SEP-2024 16:33, Atrial fibrillation has replaced Sinus rhythm Referred By: Rusty Flores Electronically Signed By:Hal Coleman
[2024-10-03] MEDS: Albuterol/Iprat 2.5/0.5MG 3 ML AMPUL.NEB INHALE ×4 (07:50→19:42)
[2024-10-03] MEDS: Aspirin Enteric Coated 81 MG TABLET.DR PO (08:13)
[2024-10-03] MEDS: 0.9 % Sodium Chloride Flush 3 ML SYRINGE IVFLUSH ×3 (08:13→21:20)
[2024-10-03] MEDS: Celecoxib 200 MG CAPSULE PO (08:13)
[2024-10-03] MEDS: methylPREDNISolone Sod Succ 40 MG/ML VIAL IVPUSH ×2 (08:13→21:20)
[2024-10-03] MEDS: Doxycycline Monohydrate 100 MG CAPSULE PO ×2 (08:14→21:19)
[2024-10-03] MEDS: Oseltamivir Phosphate 30 MG CAPSULE PO ×2 (08:14→21:20)
[2024-10-03] MEDS: Magnesium Oxide 400 MG TABLET PO (08:14)
[2024-10-03] MEDS: amLODIPine Besylate 10 MG TABLET PO (08:14)
[2024-10-03] MEDS: Gabapentin 300 MG CAPSULE PO ×3 (08:14→21:19)
[2024-10-03] MEDS: Losartan Potassium 50 MG TABLET 100 MG PO (08:14)
[2024-10-03] MEDS: Cholecalciferol (Vitamin D3) 25 MCG TABLET 125 MCG PO (08:14)
--- NOTE | 2024-10-03 09:09 | HO.PM.IMPN ---
Subjective Subjective Date of Service: 10/03/24 Interval History: Seen and evaluated this morning Denies any fever or chills Still on O2 supplement Abdominal pain improved had 7 BM overnight Review of Systems Review of Systems: Yes all other systems are reviewed and are negative Physical Exam Vital Signs: Vital Signs: Last Vital Signs Temp 98.6 F 10/03/24 07:07 Pulse 86 10/03/24 07:51 Resp 16 10/03/24 07:51 BP 137/70 10/03/24 08:14 Pulse Ox 91 L 10/03/24 07:07 O2 Del Method Nasal Cannula 10/03/24 07:07 O2 Flow Rate 2 10/03/24 07:07 BMI result Body Mass Index 31.9 Const: Other: Constitutional : Awake, interactive, not in distress Neck : Normal inspection, Supple Cardiovascular : RRR, no JVP, no lower extremity edema Respiratory : good bilateral air entry, basal fine crackles, scattered expiratory wheezes Gastrointestinal: soft, lax, Normal bowel sounds, Non tender Skin : Warm, Dry Neurological : Alert & oriented x3, No focal deficit Objective Data Active Medications Acetaminophen (Acetaminophen 325 Mg Tablet) 650 mg PO Q6H PRN PRN Reason: Pain, Mild (Pain Scale 1-3), fever or headache Albuterol/Ipratropium (Albuterol/Iprat 2.5/0.5mg 3 Ml Ampul.Neb) 3 ml INHALE RQ4H WHILE AWAKE [facility] Last Admin: 10/03/24 07:50 Dose: 3 ml Documented By: FANNY Albuterol/Ipratropium (Albuterol/Iprat 2.5/0.5mg 3 Ml Ampul.Neb) 3 ml INHALE Q4H PRN PRN Reason: Wheezing Last Admin: 10/01/24 03:35 Dose: 3 ml Documented By: YOLANDA Amlodipine Besylate (Amlodipine Besylate 10 Mg Tablet) 10 mg PO DAILY [facility]; Protocol Last Admin: 10/03/24 08:14 Dose: 10 mg Documented By: ADY Aspirin (Aspirin Enteric Coated 81 Mg Tablet.) 81 mg PO DAILY [facility] Last Admin: 10/03/24 08:13 Dose: 81 mg Documented By: ADY Atorvastatin Calcium (Atorvastatin Calcium 40 Mg Tablet) 40 mg PO BEDTIME [facility] Last Admin: 10/02/24 22:16 Dose: 40 mg Documented By: SANTO Benzocaine (Throat Lozenge, Medicated Lozenge) 1 lozenge MUCOUS MEM Q2H PRN PRN Reason: Sore Throat Last Admin: 10/02/24 10:17 Dose: 1 lozenge Documented By: CHAUNCEY Benzonatate (Benzonatate 100 Mg Capsule) 100 mg PO TID PRN PRN Reason: Cough Last Admin: 10/01/24 22:39 Dose: 100 mg Documented By: CARLOS Calcium Carbonate (Calcium Carbonate 750 Mg Tab.Chew) 750 mg PO Q4H PRN PRN Reason: Heartburn Celecoxib (Celecoxib 200 Mg Capsule) 200 mg PO DAILY [facility] Last Admin: 10/03/24 08:13 Dose: 200 mg Documented By: ADY Doxycycline Monohydrate (Doxycycline Monohydrate 100 Mg Capsule) 100 mg PO Q12H [facility] Last Admin: 10/03/24 08:14 Dose: 100 mg Documented By: ADY Enoxaparin Sodium (Enoxaparin Sodium 40 Mg/0.4 Ml Syringe) 40 mg SUBCUT Q24H [facility] Last Admin: 10/02/24 22:19 Dose: 40 mg Documented By: SANTO Finasteride (Finasteride 5 Mg Tablet) 5 mg PO BEDTIME [facility] Last Admin: 10/02/24 22:15 Dose: 5 mg Documented By: SANTO Gabapentin (Gabapentin 300 Mg Capsule) 300 mg PO TID [facility] Last Admin: 10/03/24 08:14 Dose: 300 mg Documented By: ADY Losartan Potassium (Losartan Potassium 50 Mg Tablet) 100 mg PO DAILY [facility]; Protocol Last Admin: 10/03/24 08:14 Dose: 100 mg Documented By: ADY Magnesium Hydroxide (Milk Of Magnesia 30 Ml Oral.Susp) 30 ml PO DAILY PRN PRN Reason: Constipation Last Admin: 10/02/24 09:06 Dose: 30 ml Documented By: CHAUNCEY Magnesium Oxide (Magnesium Oxide 400 Mg Tablet) 400 mg PO DAILY [facility] Last Admin: 10/03/24 08:14 Dose: 400 mg Documented By: ADY Melatonin (Melatonin 3 Mg Tablet) 6 mg PO BEDTIME PRN PRN Reason: Insomnia Methylprednisolone Sodium Succinate (Methylprednisolone Sod Succ 40 Mg/Ml Vial) 40 mg IVPUSH Q12H [facility] Last Admin: 10/03/24 08:13 Dose: 40 mg Documented By: ADY Ondansetron HCl (Ondansetron Hcl 4 Mg/2 Ml Vial) 4 mg IVPUSH Q8H PRN PRN Reason: Nausea and Vomiting Oseltamivir Phosphate (Oseltamivir Phosphate 30 Mg Capsule) 30 mg PO BID [facility] Stop: 10/05/24 21:01 Last Admin: 10/03/24 08:14 Dose: 30 mg Documented By: ADY Polyethylene Glycol (Polyethylene Glycol 3350 17 Gm Powd.Pack) 17 gm PO DAILY PRN PRN Reason: Constipation Sodium Chloride (0.9 % Sodium Chloride Flush 3 Ml Syringe) 3 ml IVFLUSH QSHIFT [facility] Last Admin: 10/03/24 08:13 Dose: 3 ml Documented By: ADY Tamsulosin HCl (Tamsulosin Hcl 0.4 Mg Capsule) 0.4 mg PO BEDTIME [facility] Last Admin: 10/02/24 22:15 Dose: 0.4 mg Documented By: GE-GILBERT Vitamin D (Cholecalciferol (Vitamin D3) 25 Mcg Tablet) 125 mcg PO DAILY [facility] Last Admin: 10/03/24 08:14 Dose: 125 mcg Documented By: ADY Labs 10/01/24 06:32 10/01/24 06:32 Microbiology Microbiology Results: Microbiology 09/30/24 16:50 Blood Culture - Preliminary Blood - Venous No growth after 48 hours. 09/30/24 16:32 Blood Culture - Preliminary Blood - Venous No growth after 48 hours. Assessment and Plan (1) Influenza: Status: Acute (2) Hypoxia: Status: Acute Plan 74-year-old male with a PMH significant for?COPD not on home O2, HTN, HLD, BPH, osteoporosis, aortic stenosis s/p TAVR with bioprosthetic valve, and CAD who presents to the ED with?weakness, chills, SOB, and productive cough x2-3 days. Pt will be admitted to the hospital for treatment and further evaluation of acute hypoxic respiratory failure and sepsis in the setting of acute flu infection with underlying COPD exacerbation and question of enteritis. Acute hypoxic respiratory failure due to influenza causing COPD exacerbation improvig slowly Still on supplemental O2, goal O2 88 to 92 DuoNebs, Solu-Medrol, Tamiflu, benzonatate continuous O2 monitoring, wean down as tolerated Acute enteritis, likely viral CT of abdomen found fluid-filled small bowel loops which may be related to enteritis or disordered motility Patient with 1 episode of vomiting 1 hour after taking 1st antibiotic Denies abdominal pain but had diarrhea on Zosyn for now, started 09/30/2024 Viral sepsis, resolved Likely secondary to influenza infection has been on empiric zosyn, cxr clear, culture negative. DC Zosyn, empric doxy x 5 days HTN BP has been soft, hold antihypertensives for now Resume as warranted CAD/HLD Continue aspirin, statin BPH Hold finasteride due to soft BP Resume as warranted Full Code . DVT Prophylaxis: Lovenox need for inpt: acute hypoxic resp failure d/t influenza Quality Stroke Does the patient have a stroke diagnosis?: No VTE Prior VTE?: No VTE Risk Level:: Medical - moderate - high VTE Device Contraindication: Treatment Not Indicated VTE Drug Contraindication: N/A - Med Ordered
[2024-10-03] MEDS: Atorvastatin Calcium 40 MG TABLET PO (21:19)
[2024-10-03] MEDS: Tamsulosin HCL 0.4 MG CAPSULE PO (21:19)
[2024-10-03] MEDS: Finasteride 5 MG TABLET PO (21:20)
[2024-10-03] MEDS: Enoxaparin Sodium 40 MG/0.4 ML SYRINGE SUBCUT (21:20)
[2024-10-03] MEDS: Metoprolol Tartrate 5 MG/5 ML VIAL IVPUSH ×2 (22:17→22:39)
--- NOTE | 2024-10-03 22:48 | PC.NURSE ---
Addendum entered by Linda Soto RN 10/03/24 23:09: HR still ranging 100-120's after IV lopressor x2. Discussed with MD, orders to give po metoprolol as well as okay to give eliquis now. Original Note: Assumed care of patient at 19:00. Pt seen on s4, med-surg orders, no tele orders on assuming care. Pt HR noted to be 120 on evening vitals though pt was just back to bed from ambulating at the time. HR reassessed during medication administration showing 120-150's on vitals cart. Pt asymptomatic, denied chest pain, palpitations, sob, n/v, dizziness. Full set of vitals obtained, BP and spo2 stable. Breathing even and unlabored without distress. Covering Dr. Flores notified. Orders for EKG and tele. EKG obtained showing afib RVR HR 130. MD made aware. Pt only complain made at this time is diarrhea earlier today. Orders for CBC, BMP, trop, and PT/INR. orders for 5mg IV lopressor, given with some effect, HR improving to 110s. MD order for additional dose of 5mg IV lopressor, given with effectiveness pending. Pt had already received scheduled lovenox prior to afib RVR development. Discussed with MD; order for eliquis though verbal order to this ticket writer to hold administration pending PT/INR results that are in progress at this time. Pt educated on afib RVR, on blood thinners and risk of bleeding. Patient continues to refuse bed alarms/high falls measures except socks and signage despite education. Pt is observed ambulating steadily within his room. Plan of care continues.
[2024-10-03 22:51] LABS: Anion Gap 16 (12-20); Blood Urea Nitrogen 25 mg/dL (9-16); Calcium 9.6 mg/dL (8.4-10.2); Carbon Dioxide 25 mmol/L (22-29); Chloride 106 mmol/L (96-108); Creatinine Clr Calc Pharmacy 59.8; Estimated Glomerular Filt Rate 56; Glucose Random 156 mg/dL (60-115); Sodium 143 mmol/L (135-145)
[2024-10-03 22:56] LABS: Hematocrit 42.4 % (42.0-52.0); Hemoglobin 14.1 g/dl (14.0-18.0); Mean Corpuscular HGB Conc 33.3 g/dl (31.0-36.0); Mean Corpuscular Hemoglobin 29.3 pg (27.0-33.0); Mean Platelet Volume 11.3 fL (9.4-12.4); Platelet Count 158 X10*3/uL (160-400); Red Blood Count 4.82 X10*6/uL (4.60-5.80); Red Cell Distribution Width 13.5 % (11.0-16.0); White Blood Count 16.3 X10*3/uL (4.8-10.8)
[2024-10-03 23:02] LABS: INTERNATIONAL NORM RATIO 0.9 (0.9-1.1)
[2024-10-03] MEDS: Metoprolol Tartrate 25 MG TABLET PO (23:16)
[2024-10-03] MEDS: Apixaban 5 MG TABLET PO (23:16)
[2024-10-03 23:26] LABS: Troponin-I High Sensitivity 11.2 ng/L (<3.5-35.0)
[2024-10-03 23:43] LABS: TSH reflex Free T4 0.53 uIU/mL (0.32-4.0)
[2024-10-04] VITALS (13 sets, daily range): BP systolic 116–158; BP diastolic 58–81; PULSE 58–120; RESP 16–20; TEMP 36.4–36.8; O2SAT 89–93
--- NOTE | 2024-10-04 00:06 | PM.EVENT ---
Event Note Date of Service: 10/04/24 Event Note: Tachycardia was noted on the BP machine, and ECG revealed new-onset AFIB with RVR. The patient was placed on telemetry, given IV metoprolol x2, and started on PO metoprolol 25 mg q6h. An echocardiogram and cardiology consult are planned for the morning. Eliquis was initiated for stroke prevention after discussing risks and benefits with the patient. Time Spent With Patient Time: Total time managing care of this patient today ____ minutes.
[2024-10-04] MEDS: Metoprolol Tartrate 5 MG/5 ML VIAL IVPUSH (04:54)
[2024-10-04 05:07] LABS: MANUAL DIFF FLAG NO
[2024-10-04 05:08] LABS: Basophils Percent Auto 0.1 % (0-2); Hematocrit 41.3 % (42.0-52.0); Hemoglobin 13.5 g/dl (14.0-18.0); Imm Gran Abs Auto 0.18 X10*3/uL (0.00-0.03); Imm Gran Pct Auto 1.3 % (0.0-0.4); Lymphocytes Absolute Auto 1.3 X10*3/uL (1.2-4.9); Lymphocytes Percent Auto 9.3 % (20-40); Mean Corpuscular HGB Conc 32.7 g/dl (31.0-36.0); Mean Corpuscular Hemoglobin 28.8 pg (27.0-33.0); Mean Corpuscular Volume 88.2 fL (80.0-98.0); Mean Platelet Volume 11.4 fL (9.4-12.4); Monocytes Absolute Auto 0.7 X10*3/uL (0.1-1.2); Neutrophils Absolute Auto 11.4 x10*3/uL (2.0-8.3); Neutrophils Percent Auto 84.3 % (45-73); Platelet Count 150 X10*3/uL (160-400); Red Blood Count 4.68 X10*6/uL (4.60-5.80); Red Cell Distribution Width 13.6 % (11.0-16.0); White Blood Count 13.5 X10*3/uL (4.8-10.8)
[2024-10-04 05:24] LABS: Anion Gap 15 (12-20); Blood Urea Nitrogen 21 mg/dL (9-16); Calcium 9.1 mg/dL (8.4-10.2); Carbon Dioxide 26 mmol/L (22-29); Chloride 106 mmol/L (96-108); Creatinine Clr Calc Pharmacy 67.2; Estimated Glomerular Filt Rate > 60; Glucose Random 142 mg/dL (60-115); Potassium 4.7 mmol/L (3.3-5.1); Sodium 142 mmol/L (135-145)
[2024-10-04 05:34] LABS: Magnesium 2.3 mg/dL (1.6-2.6)
[2024-10-04] MEDS: Metoprolol Tartrate 25 MG TABLET PO ×3 (05:45→20:12)
[2024-10-04] MEDS: Albuterol/Iprat 2.5/0.5MG 3 ML AMPUL.NEB INHALE ×4 (08:24→20:07)
[2024-10-04] MEDS: Gabapentin 300 MG CAPSULE PO ×3 (09:34→20:00)
[2024-10-04] MEDS: amLODIPine Besylate 10 MG TABLET PO (09:34)
[2024-10-04] MEDS: Celecoxib 200 MG CAPSULE PO (09:34)
[2024-10-04] MEDS: Losartan Potassium 50 MG TABLET 100 MG PO (09:34)
[2024-10-04] MEDS: Magnesium Oxide 400 MG TABLET PO (09:34)
[2024-10-04] MEDS: Oseltamivir Phosphate 30 MG CAPSULE PO ×2 (09:34→20:00)
[2024-10-04] MEDS: Aspirin Enteric Coated 81 MG TABLET.DR PO (09:34)
[2024-10-04] MEDS: methylPREDNISolone Sod Succ 40 MG/ML VIAL IVPUSH (09:35)
[2024-10-04] MEDS: 0.9 % Sodium Chloride Flush 3 ML SYRINGE IVFLUSH ×3 (09:35→20:05)
[2024-10-04] MEDS: Doxycycline Monohydrate 100 MG CAPSULE PO ×2 (09:35→20:00)
[2024-10-04] MEDS: Cholecalciferol (Vitamin D3) 25 MCG TABLET 125 MCG PO (09:35)
[2024-10-04] MEDS: Apixaban 5 MG TABLET PO ×2 (09:35→20:00)
--- NOTE | 2024-10-04 12:58 | HO.PM.IMPN ---
Subjective Subjective Date of Service: 10/04/24 Interval History: Seen and evaluated this morning Denies any fever or chills Went into new onset Afib w RvR overnight Converted back around noon time to sinus Abdominal pain improved had 2 BM overnight , feels better Review of Systems Review of Systems: Yes all other systems are reviewed and are negative Physical Exam Vital Signs: Vital Signs: Last Vital Signs Temp 98.2 F 10/04/24 10:56 Pulse 80 10/04/24 11:25 Resp 18 10/04/24 11:25 BP 132/67 10/04/24 10:56 Pulse Ox 92 10/04/24 10:56 O2 Del Method Room Air 10/04/24 10:56 O2 Flow Rate 2 10/03/24 07:07 BMI result Body Mass Index 31.9 Const: Other: Constitutional : Awake, interactive, not in distress Neck : Normal inspection, Supple Cardiovascular : RRR, no JVP, no lower extremity edema Respiratory : good bilateral air entry, basal fine crackles, no wheezes Gastrointestinal: soft, lax, Normal bowel sounds, Non tender Skin : Warm, Dry Neurological : Alert & oriented x3, No focal deficit Objective Data Active Medications Acetaminophen (Acetaminophen 325 Mg Tablet) 650 mg PO Q6H PRN PRN Reason: Pain, Mild (Pain Scale 1-3), fever or headache Albuterol/Ipratropium (Albuterol/Iprat 2.5/0.5mg 3 Ml Ampul.Neb) 3 ml INHALE RQ4H WHILE AWAKE [facility] Last Admin: 10/04/24 11:24 Dose: 3 ml Documented By: TIM Albuterol/Ipratropium (Albuterol/Iprat 2.5/0.5mg 3 Ml Ampul.Neb) 3 ml INHALE Q4H PRN PRN Reason: Wheezing Last Admin: 10/01/24 03:35 Dose: 3 ml Documented By: YOLANDA Amlodipine Besylate (Amlodipine Besylate 10 Mg Tablet) 10 mg PO DAILY [facility]; Protocol Last Admin: 10/04/24 09:34 Dose: 10 mg Documented By: WES Apixaban (Apixaban 5 Mg Tablet) 5 mg PO BID [facility] Last Admin: 10/04/24 09:35 Dose: 5 mg Documented By: WES Aspirin (Aspirin Enteric Coated 81 Mg Tablet.Dr) 81 mg PO DAILY [facility] Last Admin: 10/04/24 09:34 Dose: 81 mg Documented By: WES Atorvastatin Calcium (Atorvastatin Calcium 40 Mg Tablet) 40 mg PO BEDTIME [facility] Last Admin: 10/03/24 21:19 Dose: 40 mg Documented By: JIMI Benzocaine (Throat Lozenge, Medicated Lozenge) 1 lozenge MUCOUS MEM Q2H PRN PRN Reason: Sore Throat Last Admin: 10/02/24 10:17 Dose: 1 lozenge Documented By: CHAUNCEY Benzonatate (Benzonatate 100 Mg Capsule) 100 mg PO TID PRN PRN Reason: Cough Last Admin: 10/01/24 22:39 Dose: 100 mg Documented By: CARLOS Calcium Carbonate (Calcium Carbonate 750 Mg Tab.Chew) 750 mg PO Q4H PRN PRN Reason: Heartburn Celecoxib (Celecoxib 200 Mg Capsule) 200 mg PO DAILY [facility] Last Admin: 10/04/24 09:34 Dose: 200 mg Documented By: WES Doxycycline Monohydrate (Doxycycline Monohydrate 100 Mg Capsule) 100 mg PO Q12H [facility] Last Admin: 10/04/24 09:35 Dose: 100 mg Documented By: WES Finasteride (Finasteride 5 Mg Tablet) 5 mg PO BEDTIME [facility] Last Admin: 10/03/24 21:20 Dose: 5 mg Documented By: JIMI Gabapentin (Gabapentin 300 Mg Capsule) 300 mg PO TID [facility] Last Admin: 10/04/24 09:34 Dose: 300 mg Documented By: WES Losartan Potassium (Losartan Potassium 50 Mg Tablet) 100 mg PO DAILY [facility]; Protocol Last Admin: 10/04/24 09:34 Dose: 100 mg Documented By: WES Magnesium Hydroxide (Milk Of Magnesia 30 Ml Oral.Susp) 30 ml PO DAILY PRN PRN Reason: Constipation Last Admin: 10/02/24 09:06 Dose: 30 ml Documented By: CHAUNCEY Magnesium Oxide (Magnesium Oxide 400 Mg Tablet) 400 mg PO DAILY [facility] Last Admin: 10/04/24 09:34 Dose: 400 mg Documented By: WES Melatonin (Melatonin 3 Mg Tablet) 6 mg PO BEDTIME PRN PRN Reason: Insomnia Methylprednisolone Sodium Succinate (Methylprednisolone Sod Succ 40 Mg/Ml Vial) 40 mg IVPUSH Q12H [facility] Last Admin: 10/04/24 09:35 Dose: 40 mg Documented By: WES Metoprolol Tartrate (Metoprolol Tartrate 25 Mg Tablet) 25 mg PO Q6H [facility]; Protocol Last Admin: 10/04/24 09:34 Dose: 25 mg Documented By: WES Ondansetron HCl (Ondansetron Hcl 4 Mg/2 Ml Vial) 4 mg IVPUSH Q8H PRN PRN Reason: Nausea and Vomiting Oseltamivir Phosphate (Oseltamivir Phosphate 30 Mg Capsule) 30 mg PO BID [facility] Stop: 10/05/24 21:01 Last Admin: 10/04/24 09:34 Dose: 30 mg Documented By: WES Polyethylene Glycol (Polyethylene Glycol 3350 17 Gm Powd.Pack) 17 gm PO DAILY PRN PRN Reason: Constipation Sodium Chloride (0.9 % Sodium Chloride Flush 3 Ml Syringe) 3 ml IVFLUSH QSHIFT [facility] Last Admin: 10/04/24 09:35 Dose: 3 ml Documented By: WES Tamsulosin HCl (Tamsulosin Hcl 0.4 Mg Capsule) 0.4 mg PO BEDTIME [facility] Last Admin: 10/03/24 21:19 Dose: 0.4 mg Documented By: JIMI Vitamin D (Cholecalciferol (Vitamin D3) 25 Mcg Tablet) 125 mcg PO DAILY [facility] Last Admin: 10/04/24 09:35 Dose: 125 mcg Documented By: WES Labs 10/04/24 04:54 10/04/24 04:54 Labs: Laboratory Results - last 24 hr 10/03/24 10/04/24 22:18 04:54 MCV 88.0 88.2 MCH 29.3 28.8 MCHC 33.3 32.7 RDW 13.5 13.6 Plt Count 158 L D 150 L MPV 11.3 11.4 Immature Gran % (Auto) 1.3 H Neut % (Auto) 84.3 H Lymph % (Auto) 9.3 L [place] % (Auto) 5.0 Eos % (Auto) 0.0 Baso % (Auto) 0.1 Lymph # (Auto) 1.3 [place] # (Auto) 0.7 Eos # (Auto) 0.0 Baso # (Auto) 0.0 Abs Immat Gran (auto) 0.18 H Absolute Neuts (auto) 11.4 H Absolute Nucleated RBC 0.000 0.000 Nucleated RBC % (auto) 0.0 0.0 PT 11.0 INR 0.9 Anion Gap 16 15 Estim Creat Clear Calc 59.8 67.2 Estimated GFR 56 > 60 Random Glucose 156 H 142 H Calcium 9.6 D 9.1 Magnesium 2.3 Troponin I High Sens 11.2 D TSH 0.53 Hold Yellow Top See Note Assessment and Plan (1) Influenza: Status: Acute (2) Hypoxia: Status: Acute (3) Influenza A: Status: Acute (4) Atrial fibrillation with rapid ventricular response: Status: Acute Plan 74-year-old male with a PMH significant for?COPD not on home O2, HTN, HLD, BPH, osteoporosis, aortic stenosis s/p TAVR with bioprosthetic valve, and CAD who presents to the ED with?weakness, chills, SOB, and productive cough x2-3 days. Pt will be admitted to the hospital for treatment and further evaluation of acute hypoxic respiratory failure and sepsis in the setting of acute flu infection with underlying COPD exacerbation and question of enteritis. New onset atrial fibrillation w RvR received Metoprolol IV and PO with good response Coverted back to sinus rhythm continue Metoprolol 25 mg bid now Started Eliquis full dose Echo to be done Cardiology consult Keep on Tele Acute hypoxic respiratory failure due to influenza causing COPD exacerbation improving DuoNebs, DC Solu-Medrol, start Prednisone Continue Tamiflu, benzonatate weaned off O2 Acute enteritis, likely viral CT of abdomen found fluid-filled small bowel loops which may be related to enteritis or disordered motility Patient with 1 episode of vomiting 1 hour after taking 1st antibiotic Denies abdominal pain but had diarrhea DC Zosyn for now, started 09/30/2024 Viral sepsis, resolved Likely secondary to influenza infection has been on empiric zosyn, cxr clear, culture negative. empric doxy x 5 days HTN restart Amlodipine, hold Losartan CAD/HLD Continue aspirin, statin BPH finasteride Full Code . DVT Prophylaxis: Lovenox need for inpt: acute hypoxic resp failure d/t influenza, new onset Afib w RvR pending Echo and cardiology evaluation Quality Stroke Does the patient have a stroke diagnosis?: No VTE Prior VTE?: No VTE Risk Level:: Medical - moderate - high VTE Device Contraindication: Treatment Not Indicated VTE Drug Contraindication: N/A - Med Ordered
[2024-10-04] MEDS: Finasteride 5 MG TABLET PO (20:00)
[2024-10-04] MEDS: Tamsulosin HCL 0.4 MG CAPSULE PO (20:00)
[2024-10-04] MEDS: Atorvastatin Calcium 40 MG TABLET PO (20:00)
[2024-10-05 03:23] VITALS: BP 158/70; PULSE 60; RESP 16; TEMP 37.1; O2SAT 90
--- NOTE | 2024-10-05 07:00 | CA_ITS ---
Transthoracic Echocardiogram Patient (Last, First, Middle): Ponce Fitzpatrick R Gender: Male Date of : 1950 Age: 74 Procedure Date: 10/05/2024 Procedure Type: Transthoracic Echocardiogram [place] [facility] [place]: 175.26 cm Weight: 97.98 kg BSA: 2.13 m2 Heart Rate: bpm BP: 149 / 69 mmHg Lightning Rod Erector: TO Referring MD: Rusty Flores MD Symptoms: new afib Study Quality: Technically Difficult/Contrast Conclusions: - Normal left ventricular size, thickness, systolic function, and wall motion. The visually estimated ejection fraction is between 55-60%. - Normal right ventricular cavity size and systolic function. - The left atrium is likely dilated. - A bioprosthetic aortic valve is present. The prosthetic aortic valve appears to be functioning normally. - Low right atrial pressure. Findings Procedure Information Contrast agent, definity, is being given per protocol without apparent complications. The study quality is limited by lung artifact. Left Ventricle Normal left ventricular size, thickness, systolic function, and wall motion. The visually estimated ejection fraction is between 55-60%. Abnormal diastolic function is noted. Spectral Doppler is indicative of an impaired relaxation filling pattern. E/E prime ratio is between 8 and 15 consistent with indeterminate filling pressures. Right Ventricle Normal right ventricular cavity size and systolic function. Atria The left atrium is likely dilated. Aortic Valve A bioprosthetic aortic valve is present. The prosthetic aortic valve appears to be functioning normally. The peak aortic velocity is 2.62 m/s. The mean gradient is 15 mmHg. There is no aortic valve regurgitation. Mitral Valve There is moderate mitral annular calcification. There is no mitral valve regurgitation. There is no mitral valve stenosis. Pulmonic Valve The pulmonic valve is likely normal. Tricuspid Valve Normal tricuspid valve structure. There is trace tricuspid valve regurgitation. Tricuspid regurgitation envelope is inadequate for calculation of right ventricular systolic pressure. Low right atrial pressure. Great Vessels All visible segments of the aorta are normal in size. Venous The inferior vena cava is collapsed, consistent with reduced intravascular volume. Pericardium/Pleural There is no evidence of pericardial effusion. Prior Study Comparison No significant change compared to prior study dated: 10/06/2023. Measurements 2D Linear Measurements IVSd: 1.33 0.6-0.9/0.6-1.0 cm LVIDd: 5.23 3.9-5.3/4.2-5.9 cm LVIDd Index: 2.46 2.4-3.2/2.2-3.1 cm/m2 LVIDs: 3.21 2.0-3.6 cm LVPWd: 0.82 0.7-1.1 cm LA Diam: 3.70 2.7-3.8/3.0-4.0 cm LAIDs Index: 1.74 1.5-2.3 cm/m2 LV Mass: 269.76 67-162/88-224 g LV Mass Index: 126.65 43-95/49-115 g/m2 LVOT Diam: 2.00 3.0+(-)1.3 cm 2D Systolic Function EF 4C: 60.90 >55% Mitral Valve MV Pk E: 0.57 MV PK A: 0.79 MV Decel Time: 268.00 E/A: 0.70 E'Lateral: 7.29 E'Medial: 4.35 E/E' Med: 13.20 E/E' Lat: 7.90 PHT: 79.00 MVA PHT: 2.78 Decel Milam: 2.14 Aortic Valve AoV Pk Kane: 2.62 AoV Mn Kane: 1.83 AoV VTI: 0.57 AoV Pk Grad: 27.00 Aov Mn Grad: 15.00 JULIO Cont.VTI: 1.27 LVOT LVOT Pk Kane: 0.99 LVOT Mn Kane: 0.65 LVOT VTI: 0.23 LVOT Pk Grad: 4.00 LVOT Mn Grad: 2.00 LVOT Diam: 2.00 LVOT Area: 3.14 Diastolic Function MV Pk E: 0.57 MV Pk A: 0.79 E/A: 0.70 E'Medial: 4.35 E/E' Med: 13.20 E' Laterial: 7.29 E/E' Lat: 7.90 Right Ventricle TAPSE (mm): 35.00 TVS' Kane: 13.70 Tricuspid Valve RA Press: 3.00 Great Vessels Aorta Ao Asc: 2.40 2.1-3.4 cm Updated in Other Vendor System with Status of Final Hal Coleman MD electronically signed on 10/06/2024 3:20:41 PM with status of Final
[2024-10-05 07:02] VITALS: BP 149/69; PULSE 61; RESP 18; TEMP 36.7; O2SAT 92
[2024-10-05] MEDS: Albuterol/Iprat 2.5/0.5MG 3 ML AMPUL.NEB INHALE (07:33)
[2024-10-05 07:35] VITALS: PULSE 61; RESP 18; O2SAT 92
--- NOTE | 2024-10-05 08:44 | P.DS_ITS ---
DS: Providers Provider Date of Service: 10/05/24 Date of admission: 09/30/24 21:03 Date of discharge: 10/05/24 Primary care physician: SEUN Rowland Consults: 10/03/24 22:18 Consult to Cardiology Routine Consulting Provider: [facility] Reason for consultation: new afib Has provider been notified: Yes DS: Diagnosis Discharge Diagnosis (1) Influenza: Status: Acute (2) Hypoxia: Status: Acute (3) Influenza A: Status: Acute (4) Atrial fibrillation with rapid ventricular response: Status: Acute DS: Summary Hospital Course Hospital Course: Admission hpi Chief Complaint: Abd pain and vomiting Pt is a 74-year-old male with a PMH significant for?COPD not on home O2, HTN, HLD, BPH, osteoporosis, aortic stenosis s/p TAVR with bioprosthetic valve, and CAD who presents to the ED with?weakness, chills, SOB, and productive cough x2-3 days. Patient reports symptoms began 1 week ago with increased wheezing not fully alleviated by home inhalers. Then 2 days ago patient began to have productive cough which significantly worsened yesterday when he also felt weak, fatigued, and had shaking chills. Initially presented to walk-in clinic this morning where he was diagnosed with likely bacterial sinus infection and bronchitis with concerns for early pneumonia and started on Augmentin and prednisone. Patient states took 1st antibiotic with lunch this afternoon and experienced 1 episode of vomiting 1 hour later. No abdominal pain or diarrhea. In the ED pt was febrile up to 102.5, tachycardic up to 113, tachypneic up to 30, with soft BP as low as 100/36, and satting at 86% on RA.. Labs were signi ficant for testing positive for flu A, bandemia of 29, AST 44, and initial troponin 15.9 with repeat 35.7. UA negative for UTI. CXR showed no acute cardiopulmonary process. CTA of chest negative for acute or chronic pulmonary embolism. CT of abdomen and pelvis found fluid-filled small bowel loops which may be related to enteritis or disordered motility. EKG demonstrated sinus tachycardia of 107 without evidence of significant ST elevations or depressions. Pt was treated with ondansetron, acetaminophen, IVF, Tamiflu, ibuprofen, DuoNebs, Solu-Medrol, and Zosyn. Pt will be admitted to the hospital for treatment and further evaluation of acute hypoxic respiratory failure and sepsis in the setting of acute flu infection with underlying COPD exacerbation and question of enteritis. Hospital course: He presented with generalized weaknes, chills, sob with production cough. He was found to be hypoxic with oxygen saturation of 86 % on room iar. Further testing revealed Influenza A. CT chest showed no PE. CT abdomen showed finding consistent with enteritis. During hospital stay he developped AFIB with RVR. Probelms: Acute hypoxic respiratory failure due to influenza causing COPD exacerbation.. Treated with bronchodilators by Neb, IV steroid now PO prednsione for total of 5 days, off oxygen and has completed 5 days of Tamiflu New onset atrial fibrillation w RvR, treated with IV and PO metroplol and ultimately converted to sinus rythm. He is at high risk for stroke and therefore starting on Eliquis. To follow up with cardiology in the offic. Acute enteritis, likely viral, initially was treated with Zosyn , but stopped and tolerating diet now Viral sepsis, resolved Likely secondary to influenza infection has been on empiric zosyn, cxr clear, culture negative. empric doxy x 5 days HTN resume home meds, metoprolol 25 bid added for optimal controll CAD/HLD Continue aspirin, statin BPH finasteride Dispo: home Time Attestation Discharge Coordination Time (in mins): 40 Quality: Safe Use of Opioids Does Pt have an Active Cancer Diagnosis on the Problem List?: No Quality: Stroke Does the patient have a stroke diagnosis?: No Physical Exam Vital Signs: Vital Signs: Last Vital Signs Temp 98.1 F 10/05/24 07:02 Pulse 61 10/05/24 07:35 Resp 18 10/05/24 07:35 BP 149/69 H 10/05/24 07:02 Pulse Ox 92 10/05/24 07:02 O2 Del Method Room Air 10/05/24 07:02 O2 Flow Rate 2 10/03/24 07:07 BMI result Body Mass Index 31.9 DS: Data Data Completed and Pending Completed studies during hospitalization [Text1]: Procedures Replacement of Right Hip Joint with Ceramic on Polyethylene Synthetic Substitute, Uncemented, Open Approach (10/25/23) Labs on day of discharge: Preliminary micro results at discharge 09/30/24 16:50 Blood Culture - Preliminary Blood - Venous No growth after 48 hours. 09/30/24 16:32 Blood Culture - Preliminary Blood - Venous No growth after 48 hours. Discharge Plan Discharge Anticipated Discharge Date/Time: 10/05/24 08:45 Patient Disposition: Home, Self-Care Discharge Diagnosis: acute hypoxic resp failure, Influenza, AFIB with RVR Referrals: Efraín Perry FNP- [Primary Care Provider] - 1 Week Hal Coleman MD [Physician] - 2 Weeks Discharge Medications: New Eliquis 5 mg Tablet 5 mg PO BID Qty: 180 0RF metoprolol tartrate 25 mg Tablet 25 mg PO BID Qty: 180 0RF Protocol: Hold for SBP/HR < HOLD for SBP < : 90 HOLD for HR < : 60 Continued (DME) walker Misc See Rx Instructions .ROUTE .MEDSUPPLY Qty: 1 0RF Rx Instructions: Folding front wheeled walker (DME) Raised toliet seat See Rx Instructions .ROUTE .MEDSUPPLY Qty: 1 0RF Rx Instructions: As directed (DME) bedside commode See Rx Instructions .ROUTE .MEDSUPPLY Qty: 1 0RF Rx Instructions: As directed (DME) cane Device See Rx Instructions .Route Qty: 1 0RF Rx Instructions: As directed magnesium oxide 400 mg magnesium tablet 400 mg PO DAILY Qty: 90 0RF aspirin 81 mg tablet,delayed release (DR/EC) 81 mg PO DAILY Qty: 90 3RF atorvastatin 40 mg tablet 40 mg PO BEDTIME 90 Days Qty: 90 1RF losartan 100 mg tablet 100 mg PO DAILY Qty: 90 3RF gabapentin 300 mg capsule 300 mg PO TID 30 Days Qty: 90 2RF tamsulosin 0.4 mg capsule 0.4 mg PO BEDTIME amlodipine 10 mg tablet 10 mg PO DAILY Rx Instructions: THESE ARE 10MG TABLETS celecoxib 200 mg capsule 200 mg PO DAILY acetaminophen 325 mg tablet 650 mg PO BID nystatin 100,000 unit/gram powder 1 appl topical DAILY PRN (Reason: Skin Irritation) finasteride 5 mg tablet 5 mg PO BEDTIME cholecalciferol (vitamin D3) 125 mcg (5,000 unit) capsule 125 mcg PO DAILY Discharge Orders: Discharge Order (Routine); Ordered 10/05/24 Ordered By: Rusty Flores Diet: Advance to usual diet Activity on Discharge: As tolerated Stand Alone Forms: Patient Portal Discharge page Print Language: [place] Citizen Care Plan Goals: recovery from flu Health Concerns: influenza, acute hypoxic respiratory failure, atrial fibrilation with rapid ventricular response Plan of Treatment: Take Assessment: see above Discharge Date/Time: 10/05/24 15:15
[2024-10-05] MEDS: predniSONE 20 MG TABLET 40 MG PO (10:36)
[2024-10-05] MEDS: Oseltamivir Phosphate 30 MG CAPSULE PO (10:37)
[2024-10-05] MEDS: Cholecalciferol (Vitamin D3) 25 MCG TABLET 125 MCG PO (10:39)
[2024-10-05] MEDS: amLODIPine Besylate 10 MG TABLET PO (10:41)
[2024-10-05] MEDS: Doxycycline Monohydrate 100 MG CAPSULE PO (10:42)
[2024-10-05] MEDS: Magnesium Oxide 400 MG TABLET PO (10:43)
[2024-10-05] MEDS: Celecoxib 200 MG CAPSULE PO (10:43)
[2024-10-05] MEDS: Aspirin Enteric Coated 81 MG TABLET.DR PO (10:43)
[2024-10-05 10:44] VITALS: BP 141/62; PULSE 72
[2024-10-05] MEDS: Metoprolol Tartrate 25 MG TABLET PO (10:44)
[2024-10-05] MEDS: Apixaban 5 MG TABLET PO (10:48)
[2024-10-05] MEDS: 0.9 % Sodium Chloride Flush 3 ML SYRINGE IVFLUSH (10:48)
[2024-10-05] MEDS: Gabapentin 300 MG CAPSULE PO (10:49)
[2024-10-05 11:03] VITALS: BP 156/67; PULSE 69; RESP 18; TEMP 36.6; O2SAT 91
--- NOTE | 2024-10-05 11:39 | MHC.CM.PN ---
Second IMM 10/05/24, Pt has been medically cleared for DC. He will go home via private transport, DCP: home, self care.
== END 2024-10-05 15:15 | disposition home or self-care (01) | DRG 871 ==
LOC: HO.ED 17:09 → HO.EDOVER 21:08 → HO.IMC 23:49
PROVIDERS: Physician Assistant; Student in an Organized Health Care Education/Training Program; Admitting Provider Student in an Organized Health Care Education/Training Program; Emergency Provider Emergency Medicine; PCP Nurse Practitioner Family; Visit Provider Internal Medicine
DX: A41.89 Other specified sepsis (principal); J96.01 Acute respiratory failure with hypoxia; J44.1 Chronic obstructive pulmonary disease with (acute) exacerbation; I25.10 Atherosclerotic heart disease of native coronary artery without angina pectoris; I48.91 Unspecified atrial fibrillation; J10.2 Influenza due to other identified influenza virus with gastrointestinal manifestations; N40.0 Benign prostatic hyperplasia without lower urinary tract symptoms; I10 Essential (primary) hypertension; F17.210 Nicotine dependence, cigarettes, uncomplicated; Z71.6 Tobacco abuse counseling; Z95.2 Presence of prosthetic heart valve; Z79.82 Long term (current) use of aspirin; Z79.899 Other long term (current) drug therapy
CPT/HCPCS: 0241U; 36415; 71045; 71275; 74177; 80048; 80076; 81003; 83605; 83690; 83735; 83880; 84443; 84484; 85007; 85025; 85027; 85610; 87040; 93005; 93306; 94640; 99212; 99285; J1650; J2405; J2543; J2919; Q9957; Q9967

== ENCOUNTER → 2024-09-30 16:14 | Outpatient (BNV) | payer MEDICARE, SELFPAY | PROVIDERS: Admitting Provider Student in an Organized Health Care Education/Training Program; Emergency Provider Emergency Medicine; Visit Provider Internal Medicine | DX: R00.0 Tachycardia, unspecified (principal); R11.2 Nausea with vomiting, unspecified | CPT/HCPCS: 93010 ==

== ENCOUNTER 2024-09-30 21:03 | Outpatient (BNV) | payer MEDICARE, SELFPAY | END 2024-10-03 21:31 | PROVIDERS: Admitting Provider Student in an Organized Health Care Education/Training Program; Emergency Provider Emergency Medicine; PCP Nurse Practitioner Family; Visit Provider Internal Medicine Cardiovascular Disease | DX: R00.0 Tachycardia, unspecified (principal); R94.31 Abnormal electrocardiogram [ECG] [EKG] | CPT/HCPCS: 93010 ==

== ENCOUNTER 2024-09-30 21:03 | Outpatient (BNV) | payer MEDICARE, SELFPAY | END 2024-10-05 07:00 | PROVIDERS: Admitting Provider Student in an Organized Health Care Education/Training Program; Emergency Provider Emergency Medicine; PCP Nurse Practitioner Family; Visit Provider Internal Medicine Cardiovascular Disease | DX: I34.81 Nonrheumatic mitral (valve) annulus calcification (principal); Z95.3 Presence of xenogenic heart valve | CPT/HCPCS: 93306 ==

== ENCOUNTER → 2024-09-30 21:03 | Outpatient (BNV) | payer MEDICARE, SELFPAY | PROVIDERS: Admitting Provider Student in an Organized Health Care Education/Training Program; Emergency Provider Emergency Medicine; Visit Provider Student in an Organized Health Care Education/Training Program | DX: J96.01 Acute respiratory failure with hypoxia (principal); J10.1 Influenza due to other identified influenza virus with other respiratory manifestations; I48.91 Unspecified atrial fibrillation | CPT/HCPCS: 99223; 99232; 99233; 99239; 99499 ==

== ENCOUNTER 2024-10-19 09:12 | Outpatient (AMB) | payer MEDICARE, SELFPAY ==
--- OUTSIDE RECORDS SUMMARY | 2024-10-19 09:29 | XMS_ITS | Clinical Summary ---
Author Organization Unknown Care Team Providers Care Melt Down Furnace Operator Name Role Phone JASMIN IMPREGNATOR OPERATOR, JAMES Unavailable Unavailable ARACELI RN, ELIANE Unavailable Unavailable KYLEE PT, SHANTAL Unavailable Unavailable IVANIA WATCH DIAL STONER, MODE Unavailable Unavailable STANISLAV MURRELLN, SOCORRO Unavailable Unavailabl e SPAFFORD OT, TEMO Unavailable Unavailable CONDINO LAURYN/SARKAR, SUNSHINE Unavailable Unav ailable Payers Payer Name Policy Type Policy Number Effective Date Expira tion Date MEDICARE.NGS.PDGM [id number] Problems Condition Name Condition Details Condition Category [...] HISTORY OF FALLING Active 11-15 00:00: 00 HOT BRAIDER (CURRENT) USE OF ASPIRIN Active 11-15 00:00: 00 HOT BRAIDER (CURRENT) USE OF OPIATE ANALGESIC Active 11-15 [...] 11-09 00:00: 00 11-15 00:00 :00 No [id number] Per instruc tions Per instructio ns (route: oral) Med Classific ation: Cardiovas cular Therapy Agents oxycodone 5 mg tablet 10-28 00:00: 00 11-15 00:00 :00 No [id number] Per instruc tions Per instructio ns (route: oral) Med Classific ation: Analgesic , Anti-infl ammatory or Antipyret ic amlodipine 5 mg tablet 11-15 00:00: 00 Yes [id number] HTN 1 tablet 2 TIMES DAILY 1 tablet 2 TIMES DAILY (route: oral) Med Classific ation: Cardiovas cular Therapy Agents aspirin 81 mg tablet,kei yed release 11-15 00:00: 00 11-25 23:59 :00 No [id number] BLOOD THINNER 1 tablet 2 TIMES DAILY 1 tablet 2 TIMES DAILY (route: oral) Med Classific ation: Hematolog ical Agents aspirin 81 mg tablet,kei yed release 16 00:00: 00 Yes [id number] BLOOD THINNER 1 tablet DAILY 1 tablet DAILY (route: oral) Med Classific ation: Hematolog ical Agents atorvastati n 40 mg tablet 2-05 00:00: 00 Yes [id number] HIGH CHOLESTEROL 1 tablet DAILY 1 tablet DAILY (route: oral) Med Classific ation: Cardiovas cular Therapy Agents celecoxib 200 mg capsule 2- 00:00: 00 Yes [id number] DISCOMFORT 1 capsule 2 TIMES DAILY 1 capsule 2 TIMES DAILY (route: oral) Med Classific ation: Analgesic , Anti-infl ammatory or Antipyret ic cholecalcif tiff (vitamin D3) 25 mcg (1,000 unit) tablet 2- 00:00: 00 Yes [id number] SUPPLEMENT 2 tablet DAILY 2 tablet DAILY (route: oral) Med Classific ation: Electroly te Balance-N utritiona l Products Colace 100 mg capsule 2- 00:00: 00 Yes [id number] STOOL SOFTENER 1 capsule 2 TIMES DAILY 1 capsule 2 TIMES DAILY (route: oral) Med Classific ation: Gastroint estinal Therapy Agents finasteride 5 mg tablet 2- 00:00: 00 Yes [id number] BPH 1 tablet DAILY 1 tablet DAILY (route: oral) Med Classific ation: Genitouri nary Therapy gabapentin 300 mg capsule 2- 00:00: 00 Yes [id number] DISCOMFORT 1 capsule 3 TIMES DAILY 1 capsule 3 TIMES DAILY (route: oral) Med Classific ation: Central Nervous System Agents losartan 100 mg tablet 2- 00:00: 00 Yes [id number] HEART DISEASE 1 tablet DAILY 1 tablet DAILY (route: oral) Med Classific ation: Cardiovas cular Therapy Agents methocarbam ol 500 mg tablet 2- 00:00: 00 Yes [id number] MUSCLE SPASM 1 tablet 3 TIMES DAILY 1 tablet 3 TIMES DAILY (route: oral) Med Classific ation: Locomotor System oxycodone 5 mg tablet 2-05 00:00: 00 Yes [id number] PAIN 1 tablet EVERY 4 HOURS 1 tablet EVERY 4 HOURS (route: oral) Med Classific ation: Analgesic , Anti-infl ammatory or Antipyret ic tamsulosin 0.4 mg capsule 11-15 00:00: 00 Yes [id number] BPH 1 capsule DAILY 1 capsule DAILY (route: oral) Med Classific ation: Genitouri nary Therapy Tylenol 325 mg tablet 11-15 00:00: 00 Yes [id number] DISCOMFORT 2 tablet 2 TIMES DAILY 2 [...] ADMISSION AND PRN FOR FOR RN TO ASSESS/CLINICAL AUDITOR TO OBSERVE PATIENT, WITH NOTIFICATION TO THE [...] ADMISSION AND PRN FOR FOR RN TO ASSESS/CLINICAL AUDITOR TO OBSERVE PATIENT, WITH NOTIFICATION TO THE [...] DETERIORATION, COMPLICATIONS, OR INFECTION TO RN CLINICAL SPEEDBOAT DRIVER AND/OR PHYSICIAN. ORTHOPEDIC SURGICAL AFTERCARE (PT) MAY [...] DETERIORATION, COMPLICATIONS, OR INFECTION TO RN CLINICAL SPEEDBOAT DRIVER AND/OR PHYSICIAN. ORTHOPEDIC SURGICAL AFTERCARE (PT) MAY [...] 2023-12-13 00:00:00 Outpatient NEW ADMISSION SHANTAL PICHARDO [facility] [id number] 2023-12-13 00:00:00 DISCHARGE TO HOME OR SELF CARE INDEPENDEN T IN THE [facility] ONLY - OUT PATIENT 93.33
[2024-10-19 10:04] VITALS: BP 114/52; PULSE 47; BMI 30.7
--- NOTE | 2024-10-19 10:04 | A.OFFVIS_ITS ---
Vital Signs 10/19/24 10:04 Height 5 ft 9 in Weight 207 lb 10.807 oz BMI 30.7 BP 114/52 L Blood Pressure Location Lt brachial Position Sitting Pulse 47 L Pulse Source Monitor Intake Visit Reasons: [facility] f/up-HS pt Raw Scales Operator Required: No Allergies formaldehyde [FORMALDEHYDE] Allergy (Unknown, Verified 10/19/24 10:07) HIVES lanolin Allergy (Verified 10/19/24 10:07) Hives propylene glycol Allergy (Verified 10/19/24 10:07) Rash a steroid cream; he is not dimitry Allergy (Unknown, Uncoded 10/19/24 10:07) Unknown [employer] and [employer] Allergy (Unknown, Uncoded 10/19/24 10:07) Unknown Medication List - Last Reconciled 10/19/24 by DORYS Stiles acetaminophen 650 mg PO BID amlodipine 10 mg PO DAILY apixaban (Eliquis) 5 mg PO BID aspirin 81 mg PO DAILY atorvastatin 40 mg PO BEDTIME 90 days [bedside commode As directed] cane As directed celecoxib 200 mg PO DAILY cholecalciferol (vitamin D3) 125 mcg PO DAILY finasteride 5 mg PO BEDTIME gabapentin 300 mg PO TID 30 days losartan 100 mg PO DAILY magnesium oxide 400 mg PO DAILY metoprolol tartrate 25 mg See Protocol PO BID nystatin 1 appl topical DAILY PRN [Raised toliet seat As directed] tamsulosin 0.4 mg PO BEDTIME walker Folding front wheeled walker HPI HPI [facility] f/up-HS pt: Details: Ponce is a 74-year-old male past medical history of hypertension, hyperlipidemia, smoking, severe aortic stenosis status post TAVR, coronary artery disease who was recently admitted to [facility] with fever, cough, weakness and chills and treated for influenza A. During his admission he was noted to have new finding of paroxysmal atrial fibrillation. He was put on metoprolol for heart rate control and Eliquis for anticoagulation. Echocardiogram showed normal EF and normally functioning bioprosthetic aortic valve. Today he reports he has been doing well since his hospital discharge. He has not had any known atrial fibrillation. He says that when he had the atrial fibrillation in the hospital he did not feel any heart palpitations. He feels he has fully recovered from his recent illness. No chest discomfort at rest or with activity. No PND, orthopnea or edema. No lightheadedness, presyncope, syncope, falls. Taking meds as directed. 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 [facility] Medical History Afib HTN (hypertension) Vaccination refused by patient Acute hypoxic respiratory failure Osteoarthritis of right hip Arthritis Enlarged prostate Cough Elevated cholesterol HTN (hypertension) Right shoulder pain Non-rheumatic aortic stenosis Severe aortic stenosis Diverticulosis Umbilical hernia Deformity of left hand Systolic murmur Smoker COPD (chronic obstructive pulmonary disease) Skin cancer Rectus diastasis Surgical History Hx of hand surgery H/O colonoscopy Status post transcatheter aortic valve replacement (TAVR) using bioprosthesis Aortic valve replaced S/P cardiac catheterization History of left hip replacement Family History Father Unknown family medical history Mother No problems noted. Social History Household Members: Significant Other Housing: House Are you a primary director of critical care to a significant other at home: No Do you presently have visiting nurse or other home services: No Alcohol intake: never Comment: pt refusing high falls measures except socks and signage Patient Tobacco Use Status: Current everyday Tobacco user Tobacco use type: Cigarette Cigarette Packs Per Day: 0.5 Cigarettes Per Day: 10.0 Years Smoked: 55 e-Cigarette/Vaping Use: Never Used Second Hand Smoke Exposure: No service: No Current occupational status: employed Cognitive needs: No Hearing needs: No Vision needs: Yes Review of Systems Const All systems reviewed & are unremarkable except as noted in HPI and below Reports fatigue and Reports malaise ENT Denies dizziness Card Denies chest pain, Denies chest pain at rest, Denies chest pain with activity, Denies rapid heart rate, Denies pedal edema, Denies edema, Denies leg edema, Denies lightheadedness, Denies palpitations, Denies dyspnea, Denies dyspnea on exertion and Denies orthopnea Resp Denies cough, Denies dyspnea and Denies dyspnea on exertion GI Denies hematochezia and Denies change in stool character Musc Denies abnormal gait, Denies limited range of motion, Denies muscle cramps, Denies muscle weakness, Denies numbness, Denies radiating pain into limb, Denies stiffness and Denies tingling Neuro Denies abnormal gait, Denies dizziness, Denies numbness and Denies tingling Endo Reports fatigue and Denies palpitations Physical Exam Vital Signs: Last Vital Signs Pulse 47 L 10/19/24 10:04 BP 114/52 L 10/19/24 10:04 BMI result Body Mass Index 30.7 Const General: cooperative, healthy appearing, comfortable and no acute distress Orientation/consciousness: patient oriented x3 Neck Neck: Yes normal visual inspection and Yes no JVD Resp Effort & Inspection: normal respiratory effort Auscultation: clear to auscultation bilaterally, no rales, no rhonchi and no wheezes Cardio Jugular venous distension: no JVD Rate: regular rate Rhythm: regular rhythm Heart sounds: S1 normal heart sound present, S2 normal heart sound present, no murmurs and no rubs Neuro General: patient oriented x3 Extrem General: Yes normal to inspection, No no pedal edema and No calf tenderness Psych Appearance: grossly normal Mental Status: mental status grossly normal Speech and movement: Normal speech and movement present Office Procedures EKG Details: Today, read by me, Sinus bradycardia, rate 47, QTc 354ms [id number], Complete Assessment & Plan Assessment & Plan (1) Paroxysmal atrial fibrillation: Code(s): I48.0 - Paroxysmal atrial fibrillation Category: Medical Plan: New finding paroxysmal atrial fibrillation during recent [facility] [place] for influenza A, with hypoxia. He was treated with heart rate control and did convert to sinus rhythm. He was put on Eliquis for anticoagulation. Today he reports he has been doing well since his hospital discharge. EKG today shows sinus bradycardia, rate 47. He has not noticed any recent heart palpitations, new weakness or fatigue He did not feel palpitations with the inpatient AF. Echocardiogram done 10/05/2024 showed EF 55-60%, bioprosthetic AVR functioning normally, LA likely dilated. His episode of AFib did occur during acute illness. He has a known history of CAD, but denies anginal symptoms. At this time will check a Holter monitor to assess for any recurrent AFib. Will change his metoprolol from tartrate 25 mg b.i.d. to metoprolol XL 25 mg once daily. Continue Eliquis. No bleeding issues reported. (2) Coronary artery disease: Code(s): I25.10 - Atherosclerotic heart disease of eyak coronary artery without angina pectoris Category: Medical Qualifiers: Associated angina: without angina Coronary Disease-Associated Artery/Lesion type: eyak artery Plan: History of CAD, moderate on cardiac cath 11/2022. No current reports of anginal sounding symptoms. He is on Eliquis for anticoagulation. He is on atorvastatin with ideal LDL goal less than 70. He is on metoprolol which I am reducing the dose due to low heart rate. 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 (3) S/P cardiac catheterization: Comment: 11/17/2022 showing left main normal, lad mild luminal irregularities, left circumflex mid 70% stenosis, RCA mid 60-70% stenosis Code(s): Z98.890 - Other specified postprocedural states Category: Surgical Plan: As above (4) Status post transcatheter aortic valve replacement (TAVR) using bioprosthesis: Comment[place] [facility] Code(s): Z95.3 - Presence of xenogenic heart valve Category: Surgical Plan: Recent echo showing normally functioning bioprosthetic AVR. Reviewed with him. No murmur on exam. Endocarditis prophylaxis reviewed. (5) Essential hypertension: Code(s): I10 - Essential (primary) hypertension Category: Medical Plan: Normal range today. Continue amlodipine, reducing metoprolol. (6) Sinus bradycardia: Code(s): R00.1 - Bradycardia, unspecified Category: Medical Plan: As above, asymptomatic Plan Time spent on chart review, documentation, interview and assessment Orders: Orders ECG 3 day holter monitor Today I48.0 - Paroxysmal atrial fibrillation, R00.1 - Bradycardia, unspecified Medications: New metoprolol succinate ER dose reduced and changed to XL 25 mg PO DAILY 30 tabs 5RF Discontinued metoprolol tartrate Discontinued Reason: Doctor's Order 25 mg See Protocol PO BID 180 tabs 0RF aspirin Discontinued Reason: Doctor's Order 81 mg PO DAILY 90 tabs 3RF Coding Level of Care Code Est Pt Level 4 (25272) Complex EM visit Add On G2211 Diagnoses Paroxysmal atrial fibrillation I48.0 Coronary artery disease I25.10 Associated angina: without angina Coronary Disease-Associated Artery/Lesion type: eyak artery S/P cardiac catheterization Z98.890 Status post transcatheter aortic valve replacement (TAVR) using bioprosthesis Z95.3 Essential hypertension I10 Sinus bradycardia R00.1 CPT Codes EKG - CPT: 44614-Kdqhuheuietkcilvi, Complete ([id number]) Time Spent (min) 32
== END 2024-10-19 10:41 | disposition home or self-care (01) ==
PROVIDERS: PCP Nurse Practitioner Family; Visit Provider Nurse Practitioner Family
DX: I48.0 Paroxysmal atrial fibrillation (principal); I25.10 Atherosclerotic heart disease of native coronary artery without angina pectoris; Z98.890 Other specified postprocedural states; Z95.3 Presence of xenogenic heart valve; I10 Essential (primary) hypertension; R00.1 Bradycardia, unspecified
CPT/HCPCS: 93010; 99214; G2211

== ENCOUNTER → 2024-10-19 09:12 | Outpatient (BNVA) | payer MEDICARE, SELFPAY | PROVIDERS: PCP Nurse Practitioner Family; Visit Provider Nurse Practitioner Family | DX: I48.0 Paroxysmal atrial fibrillation (principal); I25.10 Atherosclerotic heart disease of native coronary artery without angina pectoris; I10 Essential (primary) hypertension; R00.1 Bradycardia, unspecified; Z95.3 Presence of xenogenic heart valve; Z98.890 Other specified postprocedural states | CPT/HCPCS: 93005; 99212 ==

== ENCOUNTER → 2024-11-07 10:00 | Outpatient (REF) | payer MEDICARE, SELFPAY ==
--- OUTSIDE RECORDS SUMMARY | 2024-11-07 10:46 | XMS_ITS ---
Author Organization [facility] zaira Newell Address [address] [place] [address] Care Team Providers Care Patrol Supervisor Name Role Phone Efraín Lazaro Primary Care Provider Unav ailable Woo Carmona Unavailable [phone] Allergies Allergen (clinical drug ingredient) Drug/Non Drug Allergy documented on EMR Reaction Allergy Type Onset Date Status Formaldehyde rash Drug Allergy Acti ve REASON FOR VISIT Painful nail(s) aggrevated by shoes causing difficulty standing/walking, Swelling Medications Medication SIG (Take, Route, Frequency, Duration) Notes Start Date End Date Status Finasteride 5 MG Orally Once a day Active Betamethasone Dipropionate Active Gabapentin Active Tamsulosin HCl 0.4 MG Orally Once a day Active Nystop Active amLODIPine Benzoate Active Compression Stockings 20-30mm Hg 1 pair wear daily for 30 days Active Atorvastatin Calcium Active Nystatin Active Social History Tobacco Use: Social History Observation Description Date Details (start date - stop date) Current Smoker NA - NA Tobacco Use/Smoking Question Answer Notes Are you a: current smoker How many cigarettes a day do you smoke? 6-10 Alcohol Screen Question Answer Notes Did you have a drink containing alcohol in the p ast year? Yes Points 0 Interpretation Negative Tobacco use other than smoking: Question Answer Notes Are you an other tobacco user? No Problems Problem Type SNOMED Code ICD Code Onset Dates Problem Status W/U Status Risk Notes Problem [id number] Tinea unguium (B35.1) Active confirmed Vital Signs Height 5 ft 9 in in 08/29/2024 Weight 220 lbs 08/29/2024 BMI 32.48 kg/m2 08/29/2024 Blood pressure systolic 120 mm Hg 08/29/20 24 Blood pressure diastolic 80 mm Hg 024 Procedures Procedure Date Ordered Date Performed Result Body Sit e [id number]-[id number] NAIL, 6 OR MORE 08/29/2024 N/A Encounters Encounter Location Date Provider Diagnosis [facility] [address] [place] [address] 08/29/2024 Woo Carmona Tinea unguium B35.1 ; Pain in right toe(s) M79.674 ; Pain in left toe(s) M79.675 and Edema, lower extremity R60.0 Assessments Encounter Date Diagnosis (ICD Code) Assessment Notes Treatment Notes Treatment Clinical Notes Section Notes 08/29/2024 Tinea unguium (ICD-10 - B35.1) 08/29/2024 Pain in right toe(s) (ICD-10 - M79.674) 08/29/2024 Pain in left toe(s) (ICD-10 - M79.675) 08/29/2024 Edema, lower extremity (ICD-10 - R60.0) Plan Of Treatment Pending Test Test Name Order Date [id number] NAIL, 6 OR MORE 08/29/2024 Next Appt Details Follow Up: prn, Reason: Provider Name:Woo Carmona , 11/28/2024 10:45:00 AM, [address] [place] [address], [id number], Procedure Notes * Category Sub-Category Detail Notes Debride Nail 6-10 Nail debridement Performance o f this nail treatment by a nonprofessional would put this patients foot and overall health at risk. Therefore, nail debridement was performed extensively to reduce/remove overall nail length, girth, thickness, subungual debris, and necrotic tissue, by manual and/or electrical means through the use of a nail nipper and/or dremel-type internal grinder, to a more viable healthy nail plate or bed tissue 6-10. Silver nitrate used for any petechial bleeding as necessary. Definitive antifungal treatment options have been reviewed and discussed with the patient. The patient chooses, no pharmaceutical tx ([id number]) Progress Notes * Ponce BLAIR RDOB:[birth year] (74 yo M)Acc No.[id number]:08/29/2024 Progress Note Patient:?Ponce BLAIR Provider:?Woo Carmona DPM :1950???Age:74 Y???Sex:Male Morris e:08/29/2024 Address:[address] [place], [place] [id number] Pcp:JULIA Spencer Subjective: * Chief Complaints: * ???Painful nail(s) aggrevate d by shoes causing difficulty standing/walkingSwelling * HPI: ???Painful Nails:?Pt States Last PCP Visit:?Date:?04/21/2024 ???Swelling:?Treatment:?elevation, compression stockings.? * ROS:?General/Constitutional:?Nausea?denies.?Vomiting?denies.?Hunger Thirst?denies.?Loss appetite?denies.?Chills?denies.?Fatigue?denies.?Fever?denies.?Night Sweats?denies.?Unexplained weight loss?denies.?Unexplained weight gain?denies.?HEENTM:?Dentures?denies.?Dizziness?denies.?Glasses/contacts?denies.?Retinopathy?de nies.?Blurred/double vision?denies.?TMJ?denies.?Discharge/drainage?denies.?Implants?denies.?Sore throat?denies.?Dental implants?denies.?Hard of hearing ?denies.?Difficulty chewing/swallowing/speaking?denies.?Nose bleeds?denies.?Sore mouth?denies.?Respiratory:?On Oxygen?denies.?Pneumonia/pleurisy?denies.?Bronchitis?denies.?Emphysema?denies.?C oughing?denies.?Cough blood?denies.?Shortness of breath?denies.?Wheezing?denies.?Cardiovascular:?Pacemaker?denies.?MVP?denies.?WPW?denies.?CHF?denies.?Heart attack?denies.?Septal defect?denies.?Rapid beat?denies.?Chest pain ?denies.?Atrial Fib.?denies.?Murmur/Palpitations?denies.?Gastrointestinal:?Hemorrhoids?denies.?Stomach/Abdominal pain?denies.?Dark blood stool?denies.?Irritable bowel ?denies.?Constipation?denies.?Diarrhea?denies.?Hematology:?Swelling?admits.?Clots?denies.?Varicose Veins?admits.?Bruising?denies.?Bleeding problem?denies.?Genitourinary:?Blood urine?denies.?Frequent/Painfu/urination/bladder control?denies.?Kidney stones?denies.?Infection (UTI)?denies.?Nephropathy?denies.?sex trans dis (STD)?denies.?Prostate?denies.?Musculoskeletal:?Hammertoes?denies.?Bunions?denies.?Back Pain?denies.?Muscle Cramps/ Resting?denies.?Muscle cramps / walking?denies.?Generalized aches and pains?denies.?Weakness?denies.?Integ.:?[place]?denies.?Scars?denies.?Corns/calluses?denies.?Ingrown nails?admits.?Painful nails?admits.?Open Sores?denies.?Rashes?denies.?Neurologic:?Difficulty sleeping?denies.?Brain disorder?denies.?Numbness?denies.?Balance trouble?denies.?Confusion?denies.?Fainting/blackouts?denies.?Tingling?denies.?Tr emors?denies.? * Medical History:? * Surgical History:?appendecto my amputation, left thumb and index finger Left Hip Replacement 08/28/15Heart Valve replacement Surgery 03/01/23Right hip replacement 10/25/23 * Hospitalization/Major Diagno stic Procedure:?[facility]- infection of the bladder 06/2013Hip replacement - [facility] 2015Splinter removal 03/2018 * Family History:?Mother: dece ased, diagnosed with Other malignant neoplasm of unspecified site.?Father: , diagnosed with Unspecified cerebral artery occlusion with cerebral infarction.?Daughter(s): diabetes.? * Social History:?Tobacco Use:?Tobacco Use/Smoking?Are you a:?current smoker ?How many cigarettes a day do you smoke??6-10 ?Tobacco use other than smoking?Are you an other tobacco user??No ???Drugs/Alcohol:?Drugs?Have you used drugs other than those for medical reasons in the past 12 months??No ?Alcohol Screen?Did you have a drink containing alcohol in the past year??Yes ?Points?0 ?Interpretation?Negative ???Miscellaneous:?Caffeine: yes, frequency:, 2-3 cups per day. ?Children: yes, 2. ?Exercise: yes, work. ?Marital status: single. ?Occupation: [employer]. * Medications:?TakingNystatin Atorvastatin Calcium amLODIPine Benzoate Gabapentin Betamethasone Dipropionate Finasteride 5 MG Tablet Orally Once a day Nystop Tamsulosin HCl 0.4 MG Capsule Orally Once a day Compression Stockings 20-30mm Hg closed toe- knee high 1 pair wear daily Medication List reviewed and reconciled with the patientTaking Nystatin Taking Atorvastatin Calcium Taking amLODIPine Benzoate Taking Gabapentin Taking Betamethasone Dipropionate Taking Finasteride 5 MG Tablet Orally Once a day Taking Nystop Taking Tamsulosin HCl 0.4 MG Capsule Orally Once a day Taking Compression Stockings 20-30mm Hg closed toe- knee high 1 pair wear daily Medication List reviewed and reconciled with the patient * Allergies:?Formaldehyde: dex campuzano[Allergies Verified] Objective: * Vitals:?Ht:5 ft 9 in, Wt:220 , BMI:32.48, Shoe size:9.5, BP:120/80mm Hg, Ht-cm: 175.26 cm, Wt-k.79 kg. * Examination: ???Nails: ?NAILS are:?Elongated, overgrown, dystrophic, lytic, greater than 3mm thick, discolored and friable with crumbly malodorous subungual debris, with pain on palpation, 1-5 B/L.?Vascular: ?EDEMA (C):?NOW, 1-2/4 , pitting , NOW, without, aching pain , Leg(s) , Ankle(s) , B/L.?COMPRESSION STOCKINGS:?Present, worn, exhibit proper support.? Assessment: * Assessment: 1.?Tinea unguium - B35.1 (Pr imary)???2.?Pain in right toe(s) - M79.674???3.?Pain in left toe(s) - M79.675???4.?Edema, lower extremity - R60.0???Specify :Acute problem, Stable Response to treatment - Improvement??? Plan: * Treatment: * Procedures:?Debride Nail 6-10:?Nail debridement?Performance of this nail treatment by a nonprofessional would put this patients foot and overall health at risk. Therefore, nail debridement was performed extensively to reduce/remove overall nail length, girth, thickness, subungual debris, and necrotic tissue, by manual and/or electrical means through the use of a nail nipper and/or dremel-type internal grinder, to a more viable healthy nail plate or bed tissue 6-10. Silver nitrate used for any petechial bleeding as necessary. Definitive antifungal treatment options have been reviewed and discussed with the patient. The patient chooses, no pharmaceutical tx ([id number]).? * Procedure Codes:?08310 DEBRI DE NAIL, 6 OR MORE * Preventive Medicine:? ??Counseling:?Tobacco use:?Type of Tobacco Use Cessation Counseling provided?Smoking effects education ?Patient counseled on the dangers of smoking and urged to quit:?08/29/2024 ?Discussion:?-12: Office or other outpatient visit for the evaluation and management of an established patient, which required a medically appropriate history and/or examination and STRAIGHTFORWARD level of MEDICAL DECISION MAKING, 1 SELF-LIMITED OR MINOR PROBLEM, MINIMAL- NO AMOUNT/COMPLEXITY OF DATA TO BE REVIEWED/ANALYZED, AND MINIMAL RISK OF COMPLICATION/MORBIDITY. The visit on the day of the encounter encompassed interpreting the data and educating the patient as to the nature of their condition, treatment options available according to their individual PMH, meds, allergies, and overall health/living conditions, as well as any potential risks or complications that may occur from a failure to adhere to, and participate in, the recommended course of therapy. The discussion included a complete verbal, and/or written explanation of the examination results, any x-rays taken, the proposed diagnosis, and outline of the treatment plan. A schedule for future care needs was also explained. The patient verbalized an understanding of the instructions at this time and agreed to be an active participant in their treatment. If the patient should think of any questions or concerns after the visit, I have encouraged the patient to call the office.?Edema:?Discussed other tx options for the patients condition, The patient wishes to continue with the present treatment plan for their condition given its success.? ??Screening/Special Tests:?Fall Risk?Screening:?No falls in the past year ?FALLS: Screening for Future Fall Risk?Have you had any falls with injury in the past year??No * Follow Up:?prn * Images: * Sign off status: Completed true * Provider:?Woo Carmona DPM Date:?2023 Generated for Tanna soto/Paul/Shon on:?11/07/2024 10:46 AM EST History and Physical Notes * HPI (History of Present Illness) Category Sub-Category Detail Notes Category Not es Painful Nails Pt States Last PCP Visit: Date:: 04/21/2024 Swelling Treatment: elevation, compr ession stockings Examination Category Sub-Category Detail Notes Category Not es Vascular EDEMA (C): NOW, 1-2/4 , pit ting , NOW, without, aching pain , Leg(s) , Ankle(s) , B/L COMPRESSION STOCKINGS: Present, worn, ex hibit proper support Nails NAILS are: Elongated, overg rown, dystrophic, lytic, greater than 3mm thick, discolored and friable with crumbly malodorous subungual debris, with pain on palpation, 1-5 B/L
--- OUTSIDE RECORDS SUMMARY | 2024-11-07 10:46 | XMS_ITS ---
Author Organization [facility] [place] Address [address] [address] Care Team Providers Care Merchandising Consultant Name Role Phone Efraín Lazaro Primary Care Provider Unav ailable Woo Carmona Unavailable [phone] Allergies Allergen (clinical drug ingredient) Drug/Non Drug Allergy documented on EMR Reaction Allergy Type Onset Date Status Formaldehyde rash Drug Allergy Acti ve REASON FOR VISIT Painful nail(s) aggrevated by shoes causing difficulty standing/walking, Swelling Medications Medication SIG (Take, Route, Frequency, Duration) Notes Start Date End Date Status Nystatin Active Gabapentin Active Compression Stockings 20-30mm Hg 1 pair wear daily for 30 days Active amLODIPine Benzoate Active Atorvastatin Calcium Active Finasteride 5 MG Orally Once a day Active Tamsulosin HCl 0.4 MG Orally Once a day Active Nystop Active Betamethasone Dipropionate Active Social History Tobacco Use: Social History [...] Are you an other tobacco user? No Vital Signs Height 5 ft 9 in in 05/26/2024 Weight 220 lbs 05/26/2024 BMI 32.48 kg/m2 05/26/2024 Blood pressure systolic 120 mm Hg 05/26/20 24 Blood pressure diastolic 80 mm Hg 024 Procedures Procedure Date Ordered Date Performed Result Body Sit e 58763-RVRPHTC NAIL, 6 OR MORE 05/26/2024 N/A Encounters Encounter Location Date Provider Diagnosis [facility] [address] [address] 05/26/2024 Woo Carmona Tinea unguium B35.1 ; Pain in right toe(s) M79.674 ; Pain in left toe(s) M79.675 ; Edema, lower extremity R60.0 and Superficial varicosities I83.90 Assessments Encounter Date Diagnosis (ICD Code) Assessment Notes Treatment Notes Treatment Clinical Notes Section Notes 05/26/2024 Tinea unguium (ICD-10 - B35.1) 05/26/2024 Pain in right toe(s) (ICD-10 - M79.674) 05/26/2024 Pain in left toe(s) (ICD-10 - M79.675) 05/26/2024 Edema, lower extremity (ICD-10 - R60.0) 05/26/2024 Superficial varicosities (ICD-10 - I83.90) Plan Of Treatment Medication Medication Name Sig Start Date Stop Date Notes Compression Stockings 20-30mm Hg 1 pair wear daily for 30 days Pending Test Test Name Order Date [id number] NAIL, 6 OR MORE 05/26/2024 Next Appt Details Follow Up: prn, Reason: Provider Name:Woo Carmona , 11/28/2024 10:45:00 AM, [address] [place] [address], [phone], Procedure Notes * Category Sub-Category Detail Notes Debride Nail 6-10 Nail debridement Performance o f this nail treatment by a nonprofessional would put this patients foot and overall health at risk. Therefore, nail debridement was performed extensively to reduce/remove overall nail length, girth, thickness, subungual debris, and necrotic tissue, by manual and/or electrical means through the use of a nail nipper and/or dremel-type metal grinder, to a more viable healthy nail plate or bed tissue 6-10. Silver nitrate used for any petechial bleeding as necessary. Definitive antifungal treatment options have been reviewed and discussed with the patient. The patient chooses, no pharmaceutical tx (23490) Progress Notes * Ponce BLAIR RDOB:[birth year] (74 yo M)Acc No.[id number]:05/26/2024 Progress Note Patient:?Ponce BLAIR Provider:?Woo Carmona DPM :1950???Age:74 Y???Sex:Male Morris e:05/26/2024 Address:[address] [place], [place] [id number] Pcp:JULIA Spencer Subjective: * Chief Complaints: * ???Painful nail(s) aggrevate d by shoes causing difficulty standing/walkingSwelling * HPI: ???Painful Nails:?Pt States Last PCP Visit:?Date:?04/21/2024 ???Swelling:?Location:?Both feet/leg.?Duration:?several weeks.?Course:?worse.? * ROS:?General/Constitutional:?Nausea?denies.?Vomiting?denies.?Hunger Thirst?denies.?Loss appetite?denies.?Chills?denies.?Fatigue?denies.?Fever?denies.?Night Sweats?denies.?Unexplained weight loss?denies.?Unexplained [...] hip replacement 10/25/23 * Hospitalization/Major Diagno stic Procedure:?[facility]- infection of the bladder 06/2013Hip replacement - [facility] 2015Splinter removal 03/2018 * Family History:?Mother: [...] 0.4 MG Capsule Orally Once a day Medication List reviewed and reconciled with the patientTaking Nystatin Taking Atorvastatin Calcium Taking amLODIPine Benzoate Taking Gabapentin Taking Betamethasone Dipropionate Taking Finasteride 5 MG Tablet Orally Once a day Taking Nystop Taking Tamsulosin HCl 0.4 MG Capsule Orally Once a day Medication List reviewed and reconciled with the patient * Allergies:?Formaldehyde: dex jamikenia[Allergies Verified] Objective: * Vitals:?Ht: 5 ft 9 in, Wt:22 0, BMI:32.48, Shoe size:9.5, BP:120/80mm Hg. * Examination: ???Nails: ?NAILS are:?Elongated, overgrown, dystrophic, lytic, greater than 3mm thick, discolored and friable with crumbly malodorous subungual debris, with pain on palpation, 1-5 B/L.?Vascular: ?DP PULSES (B):?2/4, B/L.?PT PULSES (B):?2/4, B/L.?CAPILLARY FILL TIME:?3 secs. per digit, B/L.?TROPHIC CONDITION-TEXTURE/ELASTICITY/TURGOR/HAIR GROWTH (B):?normal, B/L.?TEMPERTURE GRADIENT (C):?normal, warm to cool, proximal to distal, B/L, B/L.?PIGMENTATION:?normal, B/L.?EDEMA (C):?2/4 , pitting , with MILD, aching pain , Leg(s) , Ankle(s) , B/L.?YOLANDA'S SIGN:?absent, B/L.?PALPABLE CORDS:?absent, B/L.? Assessment: * Assessment: 1.?Tinea unguium - B35.1???2 .?Pain in right toe(s) - M79.674???3.?Pain in left toe(s) - M79.675???4.?Edema, lower extremity - R60.0???Specify :Acute problem, Uncomplicated (3), Rx Management (4)???5.?Superficial varicosities - I83.90??? Plan: * Treatment: 2.?Edema, lower extremity? Start Compression Stockings closed toe- knee high, 20-30mm Hg, 1 pair, wear, daily, 30 days, 2, Refills 2.?? * Procedures:?Debride Nail 6-10:?Nail debridement?Performance of this nail treatment by a nonprofessional would put this patients foot and overall health at risk. Therefore, nail debridement was performed extensively to reduce/remove overall nail length, girth, thickness, subungual debris, and necrotic tissue, by manual and/or electrical means through the use of a nail nipper and/or dremel-type metal grinder, to a more viable healthy nail plate or bed tissue 6-10. Silver nitrate used for any petechial bleeding as necessary. Definitive antifungal treatment options have been reviewed and discussed with the patient. The patient chooses, no pharmaceutical tx (81406).? * Procedure Codes:?66154 DEBRI DE NAIL, 6 OR MORE * Preventive Medicine:? ??Counseling:?Tobacco use:?Type of Tobacco Use Cessation Counseling provided?Smoking effects education ?Patient counseled on the dangers of smoking and urged to quit:?05/26/2024 ?Discussion:?-13: Office or other outpatient visit for the evaluation and management of an established patient, which required a medically appropriate history and/or examination and LOW level of DECISION MAKING for: 1 STABLE ACUTE UNCOMPLICATED PROBLEM, 2 OR MORE MINOR PROBLEMS, OR 1 STABLE CHRONIC PROBLEM, THAT POSE(S) A LOW RISK FOR MORBIDITY/MORTALITY. The visit on the day of the [...] have encouraged the patient to call the office.?Consult:?The patient was counseled on the diagnosis, treatment options, and the need for a, [facility] Consult, Pt indicated understanding the recommendations and accepts this treatment plan. The patient would like to make their appt themself.?Edema:?I explained to the patient the possible etiologies for Edema, including genetic, surgery, infection, medications, heart disease, kidney disease, excess dietary salt, and various cancer treatments. We discussed the risks/benefits of the treatment options available including rest, elevation, OTC compression stockings, Rx compression stockings, Unna Boot application, diet modification to limit salt intake, and Rx segmental compression boots provided the absence of CHD in the patients medical history. The advantages and disadvantages of each option were discussed and the patients questions re: risk of infection(cellulitis), medications, diet, and the daily use of compression stockings(not to be worn at night), and consistency in these home treatment regimens for optimal success were answered to their verbally confirmed satisfaction. Given the risk for vessel clotting disease, the patient was instructed to go immediately to the ER of hospital should they experience any calf pain, SOB, or discomfort. Any changes to the patients medication regimen will be performed by the PCP or patients kidney/heart/cancer specialist. The patient has elected to receive compression stockings. Such were Rxed today with instructions for use.? ??Screening/Special Tests:?Fall Risk?Screening:?No falls in the past [...] States Last PCP Visit: Date:: 04/21/2024 Swelling Location: Both feet/leg Duration: several weeks Course: worse Examination Category Sub-Category Detail Notes Category Not es Vascular DP PULSES (B): 2/4, B/L PT PULSES (B): 2/4, B/L CAPILLARY FILL TIME: 3 secs. per digit, B/L TEMPERTURE GRADIENT (C): normal, warm to cool, proximal to distal, B/L, B/L TROPHIC CONDITION-TEXTURE/ELASTICITY/TURGOR/HAIR GROWTH (B): normal, B/L EDEMA (C): 2/4 , pitting , with MILD, aching pain , Leg(s) , Ankle(s) , B/L YOLANDA'S SIGN: absent, B/L PALPABLE CORDS: absent, B/L PIGMENTATION: normal, B/L Nails NAILS are: Elongated, overg rown, dystrophic, lytic, greater than 3mm thick, discolored and friable with crumbly malodorous subungual debris, with pain on palpation, 1-5 B/L
--- OUTSIDE RECORDS SUMMARY | 2024-11-07 10:46 | XMS_ITS | Patient Health Record ---
[facility] Address [address] [place] [address] Care Team Providers Care Burner Operator Name Role Phone Efraín Lazaro Primary Care Provider Unav ailable Woo Carmona Unavailable [phone] Allergies Allergen (clinical drug ingredient) Drug/Non Drug Allergy documented on EMR Reaction Allergy Type Onset Date Status Formaldehyde rash Drug Allergy Acti ve Reason For Referral No Information Medications Medication SIG (Take, Route, Frequency, Duration) Notes Start Date End Date Status Finasteride 5 MG Orally Once a day Active Betamethasone Dipropionate Active Gabapentin Active amLODIPine Benzoate Active Compression Stockings 20-30mm Hg 1 pair wear daily for 30 days Active Tamsulosin HCl 0.4 MG Orally Once a day Active Nystop Active Atorvastatin Calcium Active Nystatin Active Immunizations Vaccine Route Administration Date Status Comme nts COVID-19 Pfizer [employer] Vaccine Unknown 10/02/2021 Administered 1st 01/17/2021 2nd 01/31/2021 Influenza Unknown 08/08/2021 Refused Social History Tobacco Use: Social History Observation [...] Problem Status W/U Status Risk Notes Problem [id number] Tinea unguium (B35.1) Active confirmed Vital Signs Blood pressure diastolic 80 mm Hg 08/29/2024 Height 5 ft 9 in in 08/29/2024 Blood pressure systolic 120 mm Hg 08/29/2024 Weight 220 lbs 08/29/2024 BMI 32.48 kg/m2 08/29/2024 Procedures Procedure Date Ordered Date Performed Result Body Sit e 48099-EDFGUFG NAIL, 6 OR MORE 12/07/2023 N/A 17346-UASLAFU NAIL, 6 OR MORE 02/22/2024 N/A 66720-SFJGSMX NAIL, 6 OR MORE 05/26/2024 N/A 65933-MRKLLQQ NAIL, 6 OR MORE 08/29/2024 N/A Encounters Encounter Location Date Provider Diagnosis [address] [address] 12/07/2023 Woo Kristine Tinea unguium B35.1 ; Pain in right toe(s) M79.674 and Pain in left toe(s) M79.[address] [address] 02/22/2024 Woo Kristine Tinea unguium B35.1 ; Pain in right toe(s) M79.674 and Pain in left toe(s) M79.[address] [address] 05/26/2024 Woo Kristine Tinea unguium B35.1 ; Pain in right toe(s) M79.674 ; Pain in left toe(s) M79.675 ; Edema, lower extremity R60.0 and Superficial varicosities I83.[address] [address] 08/29/2024 Woo Kristine Tinea unguium B35.1 ; Pain in right toe(s) M79.674 ; Pain in left toe(s) M79.675 and Edema, lower extremity R60.0 Assessments Encounter Date Diagnosis (ICD Code) Assessment Notes Treatment Notes Treatment Clinical Notes Section Notes 12/07/2023 Tinea unguium (ICD-10 - B35.1) 12/07/2023 Pain in right toe(s) (ICD-10 - M79.674) 02/22/2024 Tinea unguium (ICD-10 - B35.1) 02/22/2024 Pain in right toe(s) (ICD-10 - M79.674) 05/26/2024 Tinea unguium (ICD-10 - B35.1) 05/26/2024 Pain in right toe(s) (ICD-10 - M79.674) 08/29/2024 Tinea unguium (ICD-10 - B35.1) 08/29/2024 Pain in right toe(s) (ICD-10 - M79.674) 08/29/2024 Pain in left toe(s) (ICD-10 - M79.675) 05/26/2024 Pain in left toe(s) (ICD-10 - M79.675) 02/22/2024 Pain in left toe(s) (ICD-10 - M79.675) 12/07/2023 Pain in left toe(s) (ICD-10 - M79.675) 05/26/2024 Edema, lower extremity (ICD-10 - R60.0) 08/29/2024 Edema, lower extremity (ICD-10 - R60.0) 05/26/2024 Superficial varicosities (ICD-10 - I83.90) Plan Of Treatment Pending Test Test Name Order Date 17838-EGBLFLK NAIL, 6 OR MORE 07/06/2013 19034-JYMBWFM NAIL, 6 OR MORE 09/29/2013 48225-KHMUDUB NAIL, 6 OR MORE 01/16/2014 13060-TSTFDOB NAIL, 6 OR MORE 04/24/2014 70912-FKXMVVQ NAIL, 6 OR MORE 07/31/2014 97581-LDCLYDZ NAIL, 6 OR MORE 11/02/2014 37351-OLIOWRJ NAIL, 6 OR MORE 02/08/2015 38916-OSYAIOM NAIL, 6 OR MORE 05/14/2015 20036-RGTRTCE NAIL, 6 OR MORE 08/20/2015 22369-XMKBHCB NAIL, 6 OR MORE 11/22/2015 08051-BMVGDQL NAIL, 6 OR MORE 02/25/2016 20866-PGOEBXZ NAIL, 6 OR MORE 05/29/2016 06943-UZOLEWP NAIL, 6 OR MORE 08/28/2016 82126-GFXVFRJ NAIL, 6 OR MORE 11/20/2016 06510-TZTZAHV NAIL, 6 OR MORE 03/05/2017 16484-IJLEIQI NAIL, 6 OR MORE 07/02/2017 28792-IUGBBAT NAIL, 6 OR MORE 11/02/2017 85503-SAPKLHS NAIL, 6 OR MORE 01/25/2018 41441-PGALDXT NAIL, 6 OR MORE 04/12/2018 66989-NMLOAEY NAIL, 6 OR MORE 07/08/2018 53861-PNUFWWC NAIL, 6 OR MORE 10/21/2018 56665-YANAUSP NAIL, 6 OR MORE 01/13/2019 37107-PGPWFYK NAIL, 6 OR MORE 04/28/2019 32421-ZBBKLLV NAIL, 6 OR MORE 07/18/2019 61625-URIUDBC NAIL, 6 OR MORE 09/19/2019 45504-WBHDJLW NAIL, 6 OR MORE 12/12/2019 88726-VGQGYHJ NAIL, 6 OR MORE 03/05/2020 22169-VIBUBNI NAIL, 6 OR MORE 05/21/2020 97927-FILLSWL NAIL, 6 OR MORE 08/09/2020 08595-KZSSLYW NAIL, 6 OR MORE 10/29/2020 49143-WPZNLYP NAIL, 6 OR MORE 02/18/2021 59423-IXXLCXQ NAIL, 6 OR MORE 05/09/2021 88081-SBNKMLM NAIL, 6 OR MORE 08/08/2021 66125-ZERHDUM NAIL, 6 OR MORE 10/28/2021 84873-FSLLFTD NAIL, 6 OR MORE 01/06/2022 85970-QWSJEYF NAIL, 6 OR MORE 05/15/2022 37252-XYKWTIC NAIL, 6 OR MORE 07/28/2022 52644-GBQQKYW NAIL, 6 OR MORE 10/16/2022 77000-BEIVWLK NAIL, 6 OR MORE 12/25/2022 95485-TSOUPCN NAIL, 6 OR MORE 03/16/2023 43868-KSMUWWQ NAIL, 6 OR MORE 05/28/2023 36591-XFNAYUY NAIL, 6 OR MORE 08/27/2023 37721-CPKUDAY NAIL, 6 OR MORE 12/07/2023 73029-ICXBIIE NAIL, 6 OR MORE 02/22/2024 61593-WPYDOSK NAIL, 6 OR MORE 05/26/2024 33098-KSSZRRT NAIL, 6 OR MORE 08/29/2024 88214-UESSUKV NAIL, 6 OR MORE 07/27/2011 61626-TJRRLLD NAIL, 1-5 04/24/2013 80461-Hwzlccis Plate 07/27/2011 13181-Rjosbfwz Plate 10/14/2011 02827-Idjvmkue Plate 01/20/2012 75662-Zpueuubb Plate 04/20/2012 14556-Kuwceahf Plate 07/25/2012 79757-Tqwumhbd Plate 10/24/2012 36854-Haqilnyt Plate 01/23/2013 43396- Removal of Foreign Body, Subcut 0 05/21/2020 Next Appt Details Provider Name:Woo Carmona , 11/28/2024 10:45:00 AM, [address] [place], [address], Insurance Providers Payer Name Payer Address Payer Phone Subscriber Number Group Number Insured Name Patient Relationship to Insured Coverage Start Date Coverage End Date Medicare National Govt [facility] [address] [place] [address] [id number] Ponce Fitzpatrick Self - patient is the insured 8 [employer] Secondary to Medicare [address] [place] [address] [id number] Ponce Fitzpatrick Self - patient is the insured Medical (General) History Medical History History ICD Code measles Arthritis Prostate conditions Hypercholesterolemia Surgical History Surgery Date(Month/Year) appendectomy amputation, left thumb and index finger Left Hip Replacement 08/28/15 Heart Valve replacement Surgery 03/01/23 Right hip replacement 10/25/23 Hospitalization History Reason Date(Month/Year) Splinter removal 03/2018 Hip replacement - [facility] 2015 [facility]- infection of the bladder 06/2013
--- OUTSIDE RECORDS SUMMARY | 2024-11-07 10:46 | XMS_ITS ---
Author Organization [facility] Address [address] [place] [address] Care Team Providers Care Rim Turning Machine Operator Name Role Phone Efraín Lazaro Primary Care Provider Unav ailable Woo Carmona Unavailable [phone] Encounters Encounter Location Date Provider Diagnosis [address] [address] 05/19/2024 Woo Carmnoa Plan Of Treatment Next Appt Details Provider Name:Woo Carmona , 11/28/2024 10:45:00 AM, [address] [place] [address], [phone], Progress Notes * Ponce BLAIR RDOB:[birth year] (74 yo M)Acc No.[id number]:05/19/2024 Progress Note Patient:?Ponce BLAIR Provider:?Woo Carmona DPM :1950???Age:74 Y???Sex:Male Morris e:05/19/2024 Address:[address] [place], [place] [phone] Pcp:JULIA Spencer Subjective: * Chief Complaints: * ??? * Medical History:? Objective: * Vitals:? Assessment: Plan: * Treatment: * Images: * The named appointment provid er may or may not be the originator of this progress note, and it is not deemed complete until electronically signed by the appointment provider. Sign off status: Pending * Provider:?Woo Carmona DPM Date:?2023 Generated for Tanna soto/Paul/Shon on:?11/07/2024 10:46 AM EST
== END ==
LOC: HO.CARD 10:00
PROVIDERS: PCP Nurse Practitioner Family; Visit Provider Nurse Practitioner Family
DX: R00.1 Bradycardia, unspecified (principal); I48.0 Paroxysmal atrial fibrillation
CPT/HCPCS: 93242

== ENCOUNTER 2025-01-23 10:06 | Outpatient (AMB) | payer MEDICARE, SELFPAY ==
--- NOTE | 2025-01-23 10:11 | A.OFFVIS_ITS ---
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 Allergies formaldehyde [FORMALDEHYDE] Allergy (Unknown, Verified 10/19/24 10:07) HIVES lanolin Allergy (Verified 10/19/24 10:07) Hives propylene glycol Allergy (Verified 10/19/24 10:07) Rash a steroid cream; he is not dimitry Allergy (Unknown, Uncoded 10/19/24 10:07) Unknown [employer] and [employer] Allergy (Unknown, Uncoded 10/19/24 10:07) Unknown Medication List - Last Reviewed 01/23/25 by JOLYNN Huerta acetaminophen 650 mg PO BID amlodipine 10 mg PO DAILY [bedside commode As directed] cane As directed celecoxib 200 mg PO DAILY cholecalciferol (vitamin D3) 125 mcg PO DAILY finasteride 5 mg PO BEDTIME gabapentin 300 mg PO TID 30 days losartan 100 mg PO DAILY nystatin 1 appl topical DAILY PRN [Raised toliet seat As directed] tamsulosin 0.4 mg PO BEDTIME walker Folding front wheeled walker HPI Comments Details: Ponce returns for follow-up. History of transcatheter aortic valve replacement. Medically treated CAD. He had hospitalization for influenza and in that setting, had atrial fibrillation. There is some confusion about the current usage of Apixaban (Eliquis), as the patient does not clearly recall taking it. Monitoring for atrial fibrillation has been challenged due to discomfort from eczema, which prevents the use of a ekg monitor tech. The patient denies any current chest pain or similar symptoms. [facility] Medical History Afib HTN (hypertension) Vaccination refused by patient Acute hypoxic respiratory failure Osteoarthritis of right hip Arthritis Enlarged prostate Cough Elevated cholesterol HTN (hypertension) Right shoulder pain Non-rheumatic aortic stenosis Severe aortic stenosis Diverticulosis Umbilical hernia Deformity of left hand Systolic murmur Smoker COPD (chronic obstructive pulmonary disease) Skin cancer Rectus diastasis Surgical History Hx of hand surgery H/O colonoscopy Status post transcatheter aortic valve replacement (TAVR) using bioprosthesis Aortic valve replaced S/P cardiac catheterization History of left hip replacement Family History Father Unknown family medical history Mother No problems noted. Social History Household Members: Significant Other Housing: House Are you a primary career agent to a significant other at home: No Do you presently have visiting nurse or other home services: No Alcohol intake: never Comment: pt refusing high falls measures except socks and signage Patient Tobacco Use Status: Current everyday Tobacco user Tobacco use type: Cigarette Cigarette Packs Per Day: 0.5 Cigarettes Per Day: 10.0 Years Smoked: 55 e-Cigarette/Vaping Use: Never Used Second Hand Smoke Exposure: No service: No Current occupational status: employed Cognitive needs: No Hearing needs: No Vision needs: Yes Review of Systems Const Denies chills, Denies fatigue, Denies fever(s), Denies frequent falls, Denies weakness, Denies weight gain and Denies weight loss ENT Denies dizziness Card Denies chest pain, Denies leg edema, Denies lightheadedness, Denies palpitations, Denies dyspnea, Denies dyspnea on exertion, Denies orthopnea and Denies other (loss of consciousness) Resp Denies cough, Denies dyspnea and Denies dyspnea on exertion GI Denies hematochezia and Denies change in stool character Musc Denies abnormal gait, Denies muscle weakness, Denies numbness, Denies radiating pain into limb and Denies tingling Neuro Denies abnormal gait, Denies dizziness, Denies frequent falls, Denies numbness, Denies tingling and Denies weakness Endo Denies fatigue and Denies palpitations Physical Exam Vital Signs: Last Vital Signs Pulse 64 01/23/25 10:12 BP 120/70 01/23/25 10:12 BMI result Body Mass Index 30.9 Const General: comfortable and no acute distress Orientation/consciousness: patient oriented x3 HEENT Other: Unremarkable Head: Yes normal to inspection Neck Neck: Yes normal visual inspection Chest Chest palpation & inspection: normal inspection of the chest Resp Auscultation: clear to auscultation bilaterally Cardio Palpation: normal PMI Heart sounds: S1 normal heart sound present, S2 normal heart sound present, no gallops, Murmur heart sound present systolic II/ and at the right sternal border and no rubs GI Palpation (GI): Soft to palpation Back/Spine/Pelvis Other: unremarkable Skin General skin exam: no rashes or lesions noted Neuro General: patient oriented x3 Extrem General: Yes normal to inspection Psych Mental Status: mental status grossly normal Office Procedures EKG Details: EKG with sinus rhythm at 64/Min; no significant ST-T changes and otherwise unremarkable. [place]. [address]-Rdvcpiiqcgpntjxwy, Complete Assessment & Plan Assessment & Plan (1) Status post transcatheter aortic valve replacement (TAVR) using bioprosthesis: [place] [facility] [place] Code(s): Z95.3 - Presence of xenogenic heart valve Category: Surgical Plan: Status post TAVR. In the echocardiogram, normal bioprosthetic aortic valve function. Otherwise, infective endocarditis prophylaxis per protocol. He was on aspirin. After the atrial fibrillation episode, it seems he was put on Eliquis but he is not sure if that either. (2) Paroxysmal atrial fibrillation: Code(s): I48.0 - Paroxysmal atrial fibrillation Category: Medical Plan: Occurrence in the setting of influenza but no clinical events after that. Has had some rash issue with Holter but it seems he also had eczema and he is willing to try again. With regard to anticoagulation, it seems he may not be taking it anymore, but he was not sure if that either. We will see how the Holter study comes up and then decide if he needs long-term anticoagulation or not. (3) Coronary artery disease: Code(s): I25.10 - Atherosclerotic heart disease of [place] coronary artery without angina pectoris Category: Medical Qualifiers: Associated angina: without angina Coronary Disease-Associated Artery/Lesion type: [place] artery Plan: Cardiac catheterization in the past with moderate disease in the mid right coronary artery; severe circumflex stenosis. Clinically, no angina. On statins. (4) Essential hypertension: Code(s): I10 - Essential (primary) hypertension Category: Medical Plan: Stable. (5) Smoker: Code(s): F17.200 - Nicotine dependence, unspecified, uncomplicated Category: Social Hx Plan: Longstanding issue and unlikely that he will change. Orders: Orders ECG 14 day holter monitor Today I48.0 - Paroxysmal atrial fibrillation Medications: New atorvastatin 40 mg PO QPM 90 tabs 3RF Patient Instructions: - complete the Holter monitor - Monitor for any new symptoms or changes in your health, such as chest pain or irregular heartbeats. - Return for follow-up in about three months or sooner if new symptoms develop. - Seek medical attention if experiencing any severe or sudden symptoms. Coding Level of Care Code Est Pt Level 4 (92568) Complex EM visit Add On G2211 Diagnoses Status post transcatheter aortic valve replacement (TAVR) using bioprosthesis Z95.3 Paroxysmal atrial fibrillation I48.0 Coronary artery disease I25.10 Associated angina: without angina Coronary Disease-Associated Artery/Lesion type: [place] artery Essential hypertension I10 Smoker F17.200 CPT Codes EKG - CPT: 09407-[id number], Complete ([id number])
[2025-01-23 10:12] VITALS: BP 120/70; PULSE 64; BMI 30.9
--- OUTSIDE RECORDS SUMMARY | 2025-01-23 11:48 | XMS_ITS ---
Author Organization [facility] zaira Marshall Address [address] [facility] [place] [address] Care Team Providers Care Web Content Executive Name Role Phone Efraín Lazaro Primary Care Provider Unav ailable Woo Carmona Unavailable [phone] Allergies Allergen (clinical drug ingredient) Drug/Non Drug [...] Ordered Date Performed Result Body Sit e 16831-RSUUQGQ NAIL, 6 OR MORE 05/26/2024 N/A Encounters Encounter Location Date Provider Diagnosis [facility] [address] [address] 05/26/2024 Woo Carmona Tinea unguium B35.1 ; [...] days Pending Test Test Name Order Date [id number] NAIL, 6 OR MORE 05/26/2024 Next Appt Details Follow Up: prn, Reason: Provider Name:Woo Carmona , 03/06/2025 09:30:00 AM, [address] [place] [address], [phone], Procedure Notes * Category Sub-Category Detail Notes Debride Nail 6-10 Nail debridement Performance o f this nail treatment by a nonprofessional would put this patients foot and overall health at risk. Therefore, nail debridement was performed extensively to reduce/remove overall nail length, girth, thickness, subungual debris, and necrotic tissue, by manual and/or electrical means through the use of a nail nipper and/or dremel-type plate grinder, to a more viable healthy nail plate or bed tissue 6-10. Silver nitrate used for any petechial bleeding as necessary. Definitive antifungal treatment options have been reviewed and discussed with the patient. The patient chooses, no pharmaceutical tx (78204) Progress Notes * Ponce BLAIR RDOB:[birth year] (74 yo M)Acc No.[id number]:05/26/2024 Progress Note Patient:?Ponce BLAIR Provider:?Woo Carmona DPM :1950???Age:74 Y???Sex:Male Morris e:05/26/2024 Address:[address] [place], [place] [id number] Pcp:JULIA Spencer Subjective: * Chief Complaints: * [...] hip replacement 10/25/23 * Hospitalization/Major Diagno stic Procedure:?[facility]- infection of the bladder 06/2013Hip replacement - [facility] 2015Splinter removal 03/2018 * Family History:?Mother: [...] use of a nail nipper and/or dremel-type plate grinder, to a more viable healthy nail plate or bed tissue 6-10. Silver nitrate used for any petechial bleeding as necessary. Definitive antifungal treatment options have been reviewed and discussed with the patient. The patient chooses, no pharmaceutical tx (49612).? * Procedure Codes:?17109 DEBRI DE NAIL, 6 OR MORE * [...] Carmona DPM Date:?2023 Generated for Tanna soto/Paul/Shon on:?01/23/2025 11:48 AM EDT History and Physical Notes * HPI (History [...]
--- OUTSIDE RECORDS SUMMARY | 2025-01-23 11:48 | XMS_ITS ---
Author Organization [facility] Address [address] [facility] [place] [address] Care Team Providers Care Silk Worker Name Role Phone Efraín Lazaro Primary Care Provider Unav ailable Woo Carmona Unavailable [phone] Allergies Allergen (clinical drug ingredient) Drug/Non Drug Allergy documented on EMR Reaction Allergy Type Onset Date Status Formaldehyde rash Drug Allergy Acti ve REASON FOR VISIT Painful nail(s) aggravated by shoes causing difficulty standing/walking Medications Medication SIG (Take, Route, Frequency, Duration) Notes Start Date End Date Status Compression Stockings 20-30mm Hg 1 pair wear daily for 30 days Active Nystatin Active amLODIPine Benzoate Active Atorvastatin Calcium Active Gabapentin Active Finasteride 5 MG Orally Once a day Active Tamsulosin HCl 0.4 MG Orally Once a day Active Nystop Active Betamethasone Dipropionate Active Social History Tobacco Use: Social History Observation Description Date Details (start date - stop date) Current Smoker 11/14/1984 - NA Tobacco use other than smoking: Question Answer Notes Are you an other tobacco user? No Tobacco Control (Standard) Question Answer Notes Tobacco use: Current smoker When did you start smoking? 11/14/1984 How often do you smoke cigarettes? Every day How many cigarettes a day do you smoke? 6-10 How soon after you wake up d o you smoke your first cigarette? 6-30 minutes Are you interested in quitting? Thinking about q uitting Additional Findings: Tobacco user Modera te cigarette smoker (10-19 cigs/day) AUDIT-C (Standard) Question Answer Notes Did you have a drink containing alcohol in the p ast year? No Points 0 Interpretation Negative Problems Problem Type SNOMED Code ICD Code Onset Dates Problem Status W/U Status Risk Notes Problem Onychomycosis ([id number]) Onychomycosis (B35.1) Active confirmed Vital Signs Height 5 ft 9 in in 11/28/2024 Weight 220 lbs 11/28/2024 BMI 32.48 kg/m2 11/28/2024 Blood pressure systolic 130 mm Hg 11/28/19 25 Blood pressure diastolic 70 mm Hg 025 Procedures Procedure Date Ordered Date Performed Result Body Sit e 80089-MLDBKGQ NAIL, 6 OR MORE 11/28/2024 N/A Encounters Encounter Location Date Provider Diagnosis [facility] [place] [address] [place] [address] 11/28/2024 Woo Carmona Pain in right toe(s) M79.674 ; Onychomycosis B35.1 and Pain in left toe(s) M79.675 Assessments Encounter Date Diagnosis (ICD Code) Assessment Notes Treatment Notes Treatment Clinical Notes Section Notes 11/28/2024 Pain in right toe(s) (ICD-10 - M79.674) 11/28/2024 Onychomycosis (ICD-10 - B35.1) 11/28/2024 Pain in left toe(s) (ICD-10 - M79.675) Plan Of Treatment Pending Test Test Name Order Date [id number] NAIL, 6 OR MORE 11/28/2024 Next Appt Details Follow Up: prn, Reason: Provider Name:Woo Carmona , 03/06/2025 09:30:00 AM, [address] [place] [address], [phone], Procedure Notes * Category Sub-Category Detail Notes Debride Nail 6-10 Nail debridement Due to the cl inical pathology outlined in the exam findings, performance of this nail treatment is medically necessary as its management by an unskilled/untrained nonprofessional would put this patients foot and overall health at risk. Therefore, debridement to affected nail(s), as described in exam ( TA, T1, T2, T3, T4, T5, T6, T7, T8, T9 ), was performed exclusively by the physician of record to reduce/remove overall nail length, girth, thickness, subungual debris, and necrotic tissue, by manual and/or electrical means through the use of a nail nipper and/or dremel-type rail grinder, to a more viable healthy nail plate or bed tissue 6-10 nails in total. Silver nitrate was used for any petechial bleeding as necessary. Definitive antifungal treatment options, both pharmaceutical and surgical, have been reviewed and discussed with the patient. The patient solely prefers the use of intermittent/as needed professional debridement services for their nail condition and understands the need for additional periodic treatments to maintain effectiveness in symptomatic relief - 22867 Progress Notes * Ponce BLAIR RDOB:[birth year] (74 yo M)Acc No.[id number]:11/28/2024 Progress Note Patient:?Ponce BLAIR R Provider:?Woo Carmona DPM :1950???Age:74 Y???Sex:Male Morrsi e:11/28/2024 Address:[address] [place], [place] [id number] Pcp:JULIA Spencer Subjective: * Chief Complaints: * ???Painful nail(s) aggravate d by shoes causing difficulty standing/walking * HPI: ???Painful Nails:?Pt States Last PCP Visit:?Date:?10/25/2024 * ROS:?General/Constitutional:?Nausea?denies.?Vomiting?denies.?Hunger Thirst?denies.?Loss appetite?denies.?Chills?denies.?Fatigue?denies.?Fever?denies.?Night Sweats?denies.?Unexplained weight loss?denies.?Unexplained [...] hip replacement 10/25/23 * Hospitalization/Major Diagno stic Procedure:?[facility]- infection of the bladder 06/2013Hip replacement - [facility] 2015Splinter removal 03/2018 * Family History:?Mother: dece ased, diagnosed with Other malignant neoplasm of unspecified site.?Father: , diagnosed with Unspecified cerebral artery occlusion with cerebral infarction.?Daughter(s): diabetes.? * Social History:?Tobacco Use:?Tobacco use other than smoking?Are you an other tobacco user??No ?Tobacco Control (Standard)?Tobacco use:?Current smoker ?When did you start smoking??11/14/1984 ?How often do you smoke cigarettes??Every day ?How many cigarettes a day do you smoke??6-10 ?How soon after you wake up do you smoke your first cigarette??6-30 minutes ?Are you interested in quitting??Thinking about quitting ?Additional Findings: Tobacco user?Moderate cigarette smoker (10-19 cigs/day) ???Drugs/Alcohol:?Drugs?Have you used drugs other than those for medical reasons in the past 12 months??No ???Miscellaneous:?Caffeine: yes, frequency:, 2-3 cups per day. ?Children: yes, 2. ?Exercise: yes, work. ?Marital status: single. ?Occupation: [employer]. ???Drug/Alcohol:?AUDIT-C (Standard)?Did you have a drink containing alcohol in the past year??No ?Points?0 ?Interpretation?Negative * Medications:?TakingNystatin Atorvastatin Calcium amLODIPine Benzoate Gabapentin [...] 9 in, Wt:220 , BMI:32.48, Shoe size:9.5, BP:130/70mm Hg, Ht-cm: 175.26 cm, Wt-k.79 kg. * Examination: ???Nails: ?NAILS are:?Elongated, overgrown, dystrophic, lytic, greater than 3mm thick, discolored and friable with crumbly malodorous subungual debris, with pain on palpation, TA, T1, T2, T3, T4, T5, T6, T7, T8, T9.? Assessment: * Assessment: 1.?Pain in right toe(s) - M7 9.674???2.?Onychomycosis - B35.1 (Primary)???3.?Pain in left toe(s) - M79.675??? Plan: * Treatment: * Procedures:?Debride Nail 6-10:?Nail debridement?Due to the clinical pathology outlined in the exam findings, performance of this nail treatment is medically necessary as its management by an unskilled/untrained nonprofessional would put this patients foot and overall health at risk. Therefore, debridement to affected nail(s), as described in exam (?TA, T1, T2, T3, T4, T5, T6, T7, T8, T9?), was performed exclusively by the physician of record to reduce/remove overall nail length, girth, thickness, subungual debris, and necrotic tissue, by manual and/or electrical means through the use of a nail nipper and/or dremel-type rail grinder, to a more viable healthy nail plate or bed tissue 6- 10 nails in total. Silver nitrate was used for any petechial bleeding as necessary. Definitive antifungal treatment options, both pharmaceutical and surgical, have been reviewed and discussed with the patient. The patient solely prefers the use of intermittent/as needed professional debridement services for their nail condition and understands the need for additional periodic treatments to maintain effectiveness in symptomatic relief - 18827.? * Procedure Codes:?55111 DEBRI DE NAIL, 6 OR MORE * Preventive Medicine:? ??Counseling:?Tobacco use:?Patient counseled on the dangers of smoking and urged to quit:?11/28/2024 * Follow Up:?prn * Images: * Sign off status: Completed true * Provider:?Woo Carmona DPM Date:?2024 Generated for Tanna soto/Paul/Shon on:?01/23/2025 11:48 AM EDT History and Physical Notes * HPI (History of Present Illness) Category Sub-Category Detail Notes Category Not es Painful Nails Pt States Last PCP Visit: Date:: 10/25/2024 Examination Category Sub-Category Detail Notes Category Not es Nails NAILS are: Elongated, overg rown, dystrophic, lytic, greater than 3mm thick, discolored and friable with crumbly malodorous subungual debris, with pain on palpation, TA, T1, T2, T3, T4, T5, T6, T7, T8, T9
--- OUTSIDE RECORDS SUMMARY | 2025-01-23 11:48 | XMS_ITS | Patient Health Record ---
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 Name Role Phone Efraín Lazaro Primary Care Provider Unav ailable Woo Carmona Unavailable [phone] Allergies Allergen (clinical drug ingredient) Drug/Non Drug Allergy documented on EMR Reaction Allergy Type Onset Date Status Formaldehyde rash Drug Allergy Acti ve Reason For Referral No Information Medications Medication SIG (Take, Route, Frequency, Duration) Notes Start Date End Date Status Finasteride 5 MG Orally Once a day Active Tamsulosin HCl 0.4 MG Orally Once a day Active Nystop Active Compression Stockings 20-30mm Hg 1 pair wear daily for 30 days Active Nystatin Active amLODIPine Benzoate Active Atorvastatin Calcium Active Betamethasone Dipropionate Active Gabapentin Active Immunizations Vaccine Route Administration Date Status Comme nts Influenza Unknown 08/08/2021 Refused COVID-19 Pfizer BioNTech Vaccine Unknown 10/02/2021 Administered 1st 01/17/2021 2nd 01/31/2021 Social History Tobacco Use: Social History Observation [...] Status W/U Status Risk Notes Problem Onychomycosis (794468905) Onychomycosis (B35.1) Active confirmed Vital Signs Blood pressure diastolic 70 mm Hg 11/28/2024 Height 5 ft 9 in in 11/28/2024 Blood pressure systolic 130 mm Hg 11/28/2024 Weight 220 lbs 11/28/2024 BMI 32.48 kg/m2 11/28/2024 Procedures Procedure Date Ordered Date Performed Result Body Sit e 64240-NGILXWD NAIL, 6 OR MORE 02/22/2024 N/A 51622-UITPCOJ NAIL, 6 OR MORE 05/26/2024 N/A 43885-NATKTQB NAIL, 6 OR MORE 08/29/2024 N/A 51341-DRONGSP NAIL, 6 OR MORE 11/28/2024 N/A Encounters Encounter Location Date Provider Diagnosis [address] [address] 02/22/2024 Woo Kristine Tinea unguium B35.1 ; Pain in right toe(s) M79.674 and Pain in left toe(s) M79.[address] [address] 05/26/2024 Woo Kristine Tinea unguium B35.1 ; Pain in right toe(s) M79.674 ; Pain in left toe(s) M79.675 ; Edema, lower extremity R60.0 and Superficial varicosities I83.[address] [address] 08/29/2024 Woo Kristine Tinea unguium B35.1 ; Pain in right toe(s) M79.674 ; Pain in left toe(s) M79.675 and Edema, lower extremity R60.[address] [address] 11/28/2024 Woo Kristine Pain in right toe(s) M79.674 ; Onychomycosis B35.1 and Pain in left toe(s) M79.675 Assessments Encounter Date Diagnosis (ICD Code) Assessment Notes Treatment Notes Treatment Clinical Notes Section Notes 02/22/2024 Tinea unguium (ICD-10 - B35.1) 02/22/2024 Pain in right toe(s) (ICD-10 - M79.674) 05/26/2024 Tinea unguium (ICD-10 - B35.1) 05/26/2024 Pain in right toe(s) (ICD-10 - M79.674) 08/29/2024 Tinea unguium (ICD-10 - B35.1) 08/29/2024 Pain in right toe(s) (ICD-10 - M79.674) 11/28/2024 Pain in right toe(s) (ICD-10 - M79.674) 11/28/2024 Onychomycosis (ICD-10 - B35.1) 08/29/2024 Pain in left toe(s) (ICD-10 - M79.675) 05/26/2024 Pain in left toe(s) (ICD-10 - M79.675) 02/22/2024 Pain in left toe(s) (ICD-10 - M79.675) 05/26/2024 Edema, lower extremity (ICD-10 - R60.0) 08/29/2024 Edema, lower extremity (ICD-10 - R60.0) 11/28/2024 Pain in left toe(s) (ICD-10 - M79.675) 05/26/2024 Superficial varicosities (ICD-10 - I83.90) Plan Of Treatment Pending Test Test Name Order Date 95074-CWCIOHN NAIL, 6 OR MORE 07/06/2013 42300-XUSJMMB NAIL, 6 OR MORE 09/29/2013 76642-IJLNQGR NAIL, 6 OR MORE 01/16/2014 94051-UCOXUQI NAIL, 6 OR MORE 04/24/2014 67740-AKQZVSZ NAIL, 6 OR MORE 07/31/2014 15763-ZIRWXUE NAIL, 6 OR MORE 11/02/2014 02865-VPGYMWE NAIL, 6 OR MORE 02/08/2015 52588-PQEIJHN NAIL, 6 OR MORE 05/14/2015 41585-WGNFACK NAIL, 6 OR MORE 08/20/2015 44748-WITXDTD NAIL, 6 OR MORE 11/22/2015 72078-SOFDFUE NAIL, 6 OR MORE 02/25/2016 82459-BMBKSKS NAIL, 6 OR MORE 05/29/2016 11798-CDFUJOK NAIL, 6 OR MORE 08/28/2016 73001-XPKXKMH NAIL, 6 OR MORE 11/20/2016 94830-ATZFVMB NAIL, 6 OR MORE 03/05/2017 47811-EPTNTVA NAIL, 6 OR MORE 07/02/2017 11234-QVOVCZW NAIL, 6 OR MORE 11/02/2017 94487-OBPJTRP NAIL, 6 OR MORE 01/25/2018 93855-IUQOIKY NAIL, 6 OR MORE 04/12/2018 75336-TCOTNEH NAIL, 6 OR MORE 07/08/2018 68248-UAWTSDB NAIL, 6 OR MORE 10/21/2018 83426-ZZFGWMA NAIL, 6 OR MORE 01/13/2019 39537-SPTHFWC NAIL, 6 OR MORE 04/28/2019 29159-HZPUPIC NAIL, 6 OR MORE 07/18/2019 21868-KYUJWKX NAIL, 6 OR MORE 09/19/2019 51445-QYKIHGU NAIL, 6 OR MORE 12/12/2019 73733-UHSLAUH NAIL, 6 OR MORE 03/05/2020 76947-TUGNVEN NAIL, 6 OR MORE 05/21/2020 80212-RSJURCG NAIL, 6 OR MORE 08/09/2020 65891-TRDSKQJ NAIL, 6 OR MORE 10/29/2020 82385-VDHJTYJ NAIL, 6 OR MORE 02/18/2021 16634-HQWNBJO NAIL, 6 OR MORE 05/09/2021 95681-ZQKUGPJ NAIL, 6 OR MORE 08/08/2021 47612-KEJOUZY NAIL, 6 OR MORE 10/28/2021 92167-ZMEQULL NAIL, 6 OR MORE 01/06/2022 40956-SKNISAI NAIL, 6 OR MORE 05/15/2022 02145-OGVSDOE NAIL, 6 OR MORE 07/28/2022 51508-CFBUZYR NAIL, 6 OR MORE 10/16/2022 59288-NTHVNKN NAIL, 6 OR MORE 12/25/2022 21884-ODBRTQV NAIL, 6 OR MORE 03/16/2023 00332-XZUWHWL NAIL, 6 OR MORE 05/28/2023 73281-GLCTIGF NAIL, 6 OR MORE 08/27/2023 40493-VGEAIDN NAIL, 6 OR MORE 12/07/2023 91760-YSHBXBV NAIL, 6 OR MORE 02/22/2024 24479-MNBCMHP NAIL, 6 OR MORE 05/26/2024 59674-RFOPYLU NAIL, 6 OR MORE 08/29/2024 70562-RPYBEVQ NAIL, 6 OR MORE 11/28/2024 69901-WDYLGMR NAIL, 6 OR MORE 07/27/2011 55251-KZHYSPR NAIL, 1-5 04/24/2013 23267-Qxhecyva Plate 07/27/2011 66923-Ttjaxvck Plate 10/14/2011 72684-Odxvnrlw Plate 01/20/2012 99746-Eatfqhrz Plate 04/20/2012 41867-Oeypxzwm Plate 07/25/2012 56613-Bstrsbao Plate 10/24/2012 19820-Whmyzqti Plate 01/23/2013 62270- Removal of Foreign Body, Subcut 0 05/21/2020 Next Appt Details Provider Name:Woo Carmona , 03/06/2025 09:30:00 AM, [address] [facility], [place], [address], Insurance Providers Payer Name Payer Address Payer Phone Subscriber Number Group Number Insured Name Patient Relationship to Insured Coverage Start Date Coverage End Date Medicare National Govt Sv[employer] [address] [place] [address] [id number] Ponce Fitzpatrick Self - patient is the insured 8 A[employer] Secondary to Medicare [address] [place] [address] [id number] Ponce iFtzpatrick Self - patient is the insured Medical (General) History Medical History History ICD Code measles Arthritis Prostate conditions Hypercholesterolemia Surgical History Surgery Date(Month/Year) appendectomy amputation, left thumb and index finger Left Hip Replacement 08/28/15 Heart Valve replacement Surgery 03/01/23 Right hip replacement 10/25/23 Hospitalization History Reason Date(Month/Year) Splinter removal 03/2018 Hip replacement - [address]- infection of the bladder 06/2013
--- OUTSIDE RECORDS SUMMARY | 2025-01-23 11:49 | XMS_ITS ---
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 Name Role Phone Efraín Lazaro Primary Care Provider Unav ailable Woo Carmona Unavailable [phone] Allergies Allergen (clinical drug ingredient) Drug/Non Drug [...] Ordered Date Performed Result Body Sit e 64231-QGQQILE NAIL, 6 OR MORE 08/29/2024 N/A Encounters Encounter Location Date Provider Diagnosis [facility] [address] [place] [address] 08/29/2024 Wooloni ChengKristine Tinea unguium B35.1 ; Pain in right [...] Treatment Pending Test Test Name Order Date [id number] NAIL, 6 OR MORE 08/29/2024 Next Appt Details Follow Up: prn, Reason: Provider Name:Woo Carmona , 03/06/2025 09:30:00 AM, [address] [place] [address], [phone], Procedure Notes * Category Sub-Category Detail Notes Debride Nail 6-10 Nail debridement Performance o f this nail treatment by a nonprofessional would put this patients foot and overall health at risk. Therefore, nail debridement was performed extensively to reduce/remove overall nail length, girth, thickness, subungual debris, and necrotic tissue, by manual and/or electrical means through the use of a nail nipper and/or dremel-type eyeglass lens grinder, to a more viable healthy nail plate or bed tissue 6-10. Silver nitrate used for any petechial bleeding as necessary. Definitive antifungal treatment options have been reviewed and discussed with the patient. The patient chooses, no pharmaceutical tx (92563) Progress Notes * Ponce BLAIR RDOB:[birth year] (74 yo M)Acc No.[id number]:08/29/2024 Progress Note Patient:?ROSSY Ponce R Provider:?Woo Carmona DPM :1950???Age:74 Y???Sex:Male Morris e:08/29/2024 Address:[address] [place] [address] [id number] Pcp:JULIA Spencer Subjective: * Chief Complaints: [...] hip replacement 10/25/23 * Hospitalization/Major Diagno stic Procedure:?[facility]- infection of the bladder 06/2013Hip replacement - [facility] 2015Splinter removal 03/2018 * Family History:?Mother: [...] reconciled with the patient * Allergies:?Formaldehyde: dex hyes[Allergies Verified] Objective: * Vitals:?Ht:5 ft 9 in, [...] use of a nail nipper and/or dremel-type eyeglass lens grinder, to a more viable healthy nail plate or bed tissue 6-10. Silver nitrate used for any petechial bleeding as necessary. Definitive antifungal treatment options have been reviewed and discussed with the patient. The patient chooses, no pharmaceutical tx (32721).? * Procedure Codes:?95719 DEBRI DE NAIL, 6 OR MORE * [...]
== END 2025-01-23 10:38 | disposition home or self-care (01) ==
LOC: HO.HCS 10:06
PROVIDERS: PCP Nurse Practitioner Family; Visit Provider Internal Medicine
DX: Z95.3 Presence of xenogenic heart valve (principal); I48.0 Paroxysmal atrial fibrillation; I25.10 Atherosclerotic heart disease of native coronary artery without angina pectoris; I10 Essential (primary) hypertension; F17.200 Nicotine dependence, unspecified, uncomplicated
CPT/HCPCS: 93010; 99214; G2211

== ENCOUNTER → 2025-01-23 10:06 | Outpatient (BNVA) | payer MEDICARE, SELFPAY | PROVIDERS: PCP Nurse Practitioner Family; Visit Provider Internal Medicine | DX: I25.10 Atherosclerotic heart disease of native coronary artery without angina pectoris (principal); I48.0 Paroxysmal atrial fibrillation; I10 Essential (primary) hypertension; F17.210 Nicotine dependence, cigarettes, uncomplicated; Z95.3 Presence of xenogenic heart valve | CPT/HCPCS: 93005; 99212 ==

== ENCOUNTER 2025-01-29 16:22 | Outpatient (AMB) | payer MEDICARE, SELFPAY ==
--- NOTE | 2025-01-29 16:24 | AM.OFFWIN_ITS ---
Intake Vital Signs 01/29/25 16:25 Weight 208 lb BP 136/78 Blood Pressure Location Lt brachial Position Sitting Pulse 70 Pulse Source Pulse Oximeter Temp 98 F Temp Source Oral Pulse Oximetry (%) 96 Oxygen Delivery Method Room Air Intake Visit Reasons: EP Allergies Intake Note: Patient here for runny nose, SOB, headaches that started about 2 days ago. Patient Tobacco Use Status: Current everyday Tobacco user Allergies formaldehyde [FORMALDEHYDE] Allergy (Unknown, Verified 01/29/25 16:25) HIVES lanolin Allergy (Verified 01/29/25 16:25) Hives propylene glycol Allergy (Verified 01/29/25 16:25) Rash a steroid cream; he is not dimitry Allergy (Unknown, Uncoded 01/29/25 16:25) Unknown sandi donuts and subway Allergy (Unknown, Uncoded 01/29/25 16:25) Unknown Do you need a note to return to daycare/school/sports/work: No HPI HPI Comments History of Present Illness Details History - The patient is a 74-year-old male pres enting with sinus infection, gets them annually. - Three days ago, he developed a product doug cough and continuous nasal discharge. - He also reports a slight headache and noticeable fatigue. - These symptoms have been regular occur rences every year around seasonal changes. - Prednisone has historically provided r elief for him. - He reports sinus tenderness but does n ot experience ear pain. - The patient uses a neti pot with steri le water. - There is no history of asthma. - He does not currently take allergy med ications. Physical Exam General: Cooperative, healthy appearing, comfortable and no acute distress Orientation/consciousness: Patient oriented x3 Limitations: No limitations Head: Normal to inspection Ears: Hearing grossly normal bilaterally, external ears normal and TM's normal bilaterally Nose: Normal external nose present, Normal nares present and clear nasal discharge present Face and sinus: Normal facial exam and Sinuses tender Mouth: Normal oral and palatal mucosa present and moist mucous membranes Throat: Yes tonsils normal, Yes uvula midline. Posterior oropharynx erythema with cobblestoning Eyes: Appearance normal, both eyes and all related structures Neck: Normal visual inspection Respiratory: slight exp wheezing noted. Normal respiratory effort, able to speak in complete sentences, no respiratory distress, not tachypneic, no tripod positioning and no use of accessory muscles Cardiovascular: Regular rate and rhythm. Normal S1 and S2 Skin: No rashes or lesions noted Neuro: Patient oriented x3 Extremities: Normal to inspection and Yes no clubbing, cyanosis or edema PFSH Medical History Afib HTN (hypertension) Vaccination refused by patient Acute hypoxic respiratory failure Osteoarthritis of right hip Arthritis Enlarged prostate Cough Elevated cholesterol HTN (hypertension) Right shoulder pain Non-rheumatic aortic stenosis Severe aortic stenosis Diverticulosis Umbilical hernia Deformity of left hand Systolic murmur Smoker COPD (chronic obstructive pulmonary disease) Skin cancer Rectus diastasis Surgical History Hx of hand surgery H/O colonoscopy Status post transcatheter aortic valve replacement (TAVR) using bioprosthesis Aortic valve replaced S/P cardiac catheterization History of left hip replacement Family History Father Unknown family medical history Mother No problems noted. Social History Household Members: Significant Other Housing: House Are you a primary acute care physician to a significant other at home: No Do you presently have visiting nurse or other home services: No Alcohol intake: never Comment: pt refusing high falls measures except socks and signage Patient Tobacco Use Status: Current everyday Tobacco user Tobacco use type: Cigarette Cigarette Packs Per Day: 0.5 Cigarettes Per Day: 10.0 Years Smoked: 55 e-Cigarette/Vaping Use: Never Used Second Hand Smoke Exposure: No service: No Current occupational status: employed Cognitive needs: No Hearing needs: No Vision needs: Yes Review of Systems Const All systems reviewed & are unremarkable except as noted in HPI and below Physical Exam Vital Signs: Last Vital Signs Temp 98 F 01/29/25 16:25 Pulse 70 01/29/25 16:25 BP 136/78 01/29/25 16:25 Pulse Ox 96 01/29/25 16:25 Oxygen Delivery Method Room Air 01/29/25 16:25 Assessment & Plan Assessment & Plan (1) Sinusitis: Code(s): J32.9 - Chronic sinusitis, unspecified Qualifiers: Chronicity: acute Recurrence: recurrent Sinusitis location: frontal Qualified Code(s): J01.11 - Acute recurrent frontal sinusitis Plan: VSS, pt well appearing and PE remarkable for exp wheezes. The patient's symptoms are managed with an anti-inflammatory course due to seasonal allergies with suspected sinusitis involvement. Prednisone 40mg for five days was prescribed and instructions were given to initiate treatment the next morning. The patient should continue using nasal irrigation and consider an tizm-htl-tkymqpc antihistamine for allergy symptom relief. Monitoring for improvement with this regimen is recommended. The medication was sent to [facility] on [facility], and advice was given regarding timing to avoid insomnia. Patient was informed and verbally consented to the use of an ambient scribe for clinic note documentation during this visit Medications: New prednisone 40 mg (2 x 20 mg) PO QAM 10 tabs 0RF Coding Level of Care Code Est Pt Level 3 (60592) Diagnoses Sinusitis J01.11 Chronicity: acute Recurrence: recurrent Sinusitis location: frontal
[2025-01-29 16:25] VITALS: BP 136/78; PULSE 70; TEMP 36.6; O2SAT 96
== END 2025-01-29 17:00 ==
PROVIDERS: PCP Nurse Practitioner Family; Visit Provider Physician Assistant
DX: J01.11 Acute recurrent frontal sinusitis (principal)

== ENCOUNTER → 2025-01-29 16:22 | Outpatient (BNVA) | payer MEDICARE, SELFPAY | PROVIDERS: PCP Nurse Practitioner Family | DX: J01.11 Acute recurrent frontal sinusitis (principal) | CPT/HCPCS: 99212 ==

== ENCOUNTER 2025-02-13 13:11 | Outpatient (AMB) | payer MEDICARE, SELFPAY ==
--- NOTE | 2025-02-13 13:17 | MHC.OFFVIS ---
Vital Signs 02/13/25 13:19 Height 5 ft 9 in Weight 208 lb BMI 30.7 BP 118/52 L Blood Pressure Location Lt brachial Position Sitting Pulse 68 Pulse Source Pulse Oximeter Pulse Oximetry (%) 96 Oxygen Delivery Method Room Air Intake Visit Reasons: Colon Screening Intake Note: NEW PATIENT for colo repeat. Chief Complaint; Pt denies any GI sx or concerns at this time. Repeat colo, last was approximately 5-7 years ago via [facility] per pt. No records found in [facility] for GI. 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 Patient reports that he had colonoscopy in the past, however he does not remember his results. Records reviewed from [facility] last colonoscopy March 26, 2014 showed: multiple diverticulosis in the sigmoid colon. Diverticulosis appears to be of mild severity. Otherwise normal colonoscopy to cecum.. Previous colonoscopy in 2005 show hyperplastic polyp. Patient just recently was diagnosed with moderate to severe aortic stenosis, has been followed by Cardiology. Patient denies any symptoms of CP, palpitation, PND, presyncope, syncope. 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 Patient has appointment with home health billing specialist in July. Patient might be at risk from anesthesia point of view due to that severity of his aortic stenosis. If patient will be high risk we will proceed withl Cologuard. I will go ahead and order the colonoscopy and discuss the case with Cardiology. Patient denies any infectious diseases in the past or present. Patient denies any ill effects from anesthesia in the past. ADDENDUM spoke with home health billing specialist , patient has moderate to severe aortic stenosis. Patient will have Cologuard at this point. He has an appointment with him in July. If Cologuard is positive we can send him for risk stratification. Today's visit Patient is here today for requested visit. Patient was unable to go for colonoscopy in 2020 as he had severe aortic stenosis and underwent TAVR. Currently patient reports that he has been feeling well denies any chest cardiac or respiratory symptoms. Recently seen by Cardiology. Last visit was in January. Patient denies any issues with anesthesia in the past. Would like to get colonoscopy done. Patient currently not taking Eliquis, patient reports he discontinue it himself as he had rash when he was taking it. Reviewed home health billing specialist no and patient mentioned that to his home health billing specialist last visit. Patient is on low-dose aspirin. Denies melena, hematochezia, unintentional weight loss or ribbon like stools. Patient reports that he is moving his bowels without any issues. [facility] Medical History Afib HTN (hypertension) Vaccination refused by patient Acute hypoxic respiratory failure Osteoarthritis of right hip Arthritis Enlarged prostate Cough Elevated cholesterol HTN (hypertension) Right shoulder pain Non-rheumatic aortic stenosis Severe aortic stenosis Diverticulosis Umbilical hernia Deformity of left hand Systolic murmur Smoker COPD (chronic obstructive pulmonary disease) Skin cancer Rectus diastasis Surgical History Hx of hand surgery H/O colonoscopy Status post transcatheter aortic valve replacement (TAVR) using bioprosthesis Aortic valve replaced S/P cardiac catheterization History of left hip replacement Family History Father Unknown family medical history Mother No problems noted. Social History Household Members: Significant Other Housing: House Are you a primary urgent care to a significant other at home: No Do you presently have visiting nurse or other home services: No Alcohol intake: never Comment: pt refusing high falls measures except socks and signage Patient Tobacco Use Status: Current everyday Tobacco user Tobacco use type: Cigarette Cigarette Packs Per Day: 0.5 Cigarettes Per Day: 10.0 Years Smoked: 55 e-Cigarette/Vaping Use: Never Used Second Hand Smoke Exposure: No service: No Current occupational status: employed Cognitive needs: No Hearing needs: No Vision needs: Yes Review of Systems Const Denies weight gain and Denies weight loss ENT Reports no additional complaints, Denies dysphagia and Denies odynophagia Card Reports no additional complaints and Reports dyspnea on exertion Resp Reports chest congestion, Reports cough and Reports dyspnea on exertion GI Denies abdominal pain, Denies belching, Denies melena, Denies bloating, Denies change in bowel habits, Denies dysphagia, Denies excessive flatus, Denies dyspepsia, Denies heartburn, Denies diarrhea, Denies loose stools, Denies nausea, Denies odynophagia and Denies vomiting Reports no additional complaints Musc Reports no additional complaints Neuro Reports no additional complaints Psych Reports no additional complaints Endo Reports no additional complaints Physical Exam Vital Signs: Last Vital Signs Pulse 68 02/13/25 13:19 BP 118/52 L 02/13/25 13:19 Pulse Ox 96 02/13/25 13:19 Oxygen Delivery Method Room Air 02/13/25 13:19 BMI result Body Mass Index 30.7 Const General: healthy appearing, no acute distress and well developed Nutritional Appearance: well nourished and obese Orientation/consciousness: patient oriented x3 Resp Effort & Inspection: normal respiratory effort, able to speak in complete sentences, no tracheal deviation and symmetric chest movement Auscultation: wheezes Cardio Rate: regular rate GI Inspection: Yes normal to inspection, No distended and Yes obesity Palpation (GI): Soft to palpation, not firm, nontender and No hepatosplenomegaly present Auscultation: normal bowel sounds General: Yes no CVA tenderness Back/Spine/Pelvis Back: no CVA tenderness Skin General skin exam: elasticity normal, turgor normal and dry skin Neuro General: patient oriented x3 Psych Appearance: grossly normal Mental Status: mental status grossly normal Assessment & Plan Assessment & Plan (1) Screening for colon cancer: Code(s): Z12.11 - Encounter for screening for malignant neoplasm of colon Category: Medical (2) Respiratory illness: Code(s): J98.9 - Respiratory disorder, unspecified Category: Medical (3) Bronchitis: Code(s): J40 - Bronchitis, not specified as acute or chronic Category: Medical (4) Paroxysmal atrial fibrillation: Code(s): I48.0 - Paroxysmal atrial fibrillation Category: Medical (5) Status post transcatheter aortic valve replacement (TAVR) using bioprosthesis: Comment: 03/01/23 at [facility] Code(s): Z95.3 - Presence of xenogenic heart valve Category: Surgical (6) S/P cardiac catheterization: Comment: 11/17/2022 showing left main normal, lad mild luminal irregularities, left circumflex mid 70% stenosis, RCA mid 60-70% stenosis Code(s): Z98.890 - Other specified postprocedural states Category: Surgical Plan Patient reports frequent bronchitis and even though he does not have any shortness of breath at this time his lung sounds revealed inspiratory and expiratory wheeze. Will refer patient to pulmonology. What to expect before during and after procedure discussed with patient. Stressed the importance of clear liquid diet and good bowel prep day before procedure. We will see him after the procedure. Message sent to wind project manager of the Cardiology group to inquire clearance. Patient is agreeable to current plan of care and verbalizes understanding of instructions. He was given the opportunity to ask questions and all questions answered. Thank you for allowing me to participate in his care Orders: Referrals Pulmonology Referral J40 - Bronchitis, not specified as acute or chronic, J98.9 - Respiratory disorder, unspecified Medications: New polyethylene glycol 3350 (Miralax) As directed by gastroenterology department at [facility] 238 grams PO ONCE 238 grams 0RF Z12.11 - Encounter for screening for malignant neoplasm of colon bisacodyl (Dulcolax (bisacodyl)) take 4 tabs at noon the day before your colonoscopy 20 mg (4 x 5 mg) PO ONCE 4 tabs 0RF 1 day Z12.11 - Encounter for screening for malignant neoplasm of colon Coding Level of Care Code New Pt Level 4 (24380) Diagnoses Screening for colon cancer Z12.11 Respiratory illness J98.9 Bronchitis J40 Paroxysmal atrial fibrillation I48.0 Status post transcatheter aortic valve replacement (TAVR) using bioprosthesis Z95.3 S/P cardiac catheterization Z98.890 Time Spent (min) 50 Comment 30 minutes spent with patient and additional 20 minutes spent reviewing his records
[2025-02-13 13:19] VITALS: BP 118/52; PULSE 68; O2SAT 96; BMI 30.7
--- OUTSIDE RECORDS SUMMARY | 2025-02-13 14:25 | XMS_ITS ---
Author Organization [facility] zaira [place] Address [address] [facility] [place] [address] Care Team Providers Care Tanning Salon Attendant Name Role Phone Efraín Lazaro Primary Care Provider Unav ailable Woo Carmona Unavailable [phone] Allergies Allergen (clinical drug ingredient) Drug/Non Drug [...] Ordered Date Performed Result Body Sit e 45427-KEABNGH NAIL, 6 OR MORE 05/26/2024 N/A Encounters Encounter Location Date Provider Diagnosis [facility] [address] [address] 05/26/2024 Woo Carmona Tinea unguium B35.1 ; [...] days Pending Test Test Name Order Date 81201-RBDQQGN NAIL, 6 OR MORE 05/26/2024 Next Appt Details Follow Up: prn, Reason: Provider Name:Woo Carmona , 03/06/2025 09:30:00 AM, [address] [place] [address], [phone], Procedure Notes * Category Sub-Category Detail Notes Debride Nail 6-10 Nail debridement Performance o f this nail treatment by a nonprofessional would put this patients foot and overall health at risk. Therefore, nail debridement was performed extensively to reduce/remove overall nail length, girth, thickness, subungual debris, and necrotic tissue, by manual and/or electrical means through the use of a nail nipper and/or dremel-type track grinder, to a more viable healthy nail plate or bed tissue 6-10. Silver nitrate used for any petechial bleeding as necessary. Definitive antifungal treatment options have been reviewed and discussed with the patient. The patient chooses, no pharmaceutical tx (01409) Progress Notes * Ponce BLAIR RDOB:[birth year] (74 yo M)Acc No.[id number]:05/26/2024 Progress Note Patient:?Ponce BLAIR Provider:?Woo Carmona DPM :1950???Age:74 Y???Sex:Male Morris e:05/26/2024 Address:[address] [place], [place] [address] Pcp:JULIA Spencer Subjective: * Chief Complaints: * [...] hip replacement 10/25/23 * Hospitalization/Major Diagno stic Procedure:?[facility]- infection of the bladder 06/2013Hip replacement - [facility] 2015Splinter removal 03/2018 * Family History:?Mother: [...] use of a nail nipper and/or dremel-type track grinder, to a more viable healthy nail plate or bed tissue 6-10. Silver nitrate used for any petechial bleeding as necessary. Definitive antifungal treatment options have been reviewed and discussed with the patient. The patient chooses, no pharmaceutical tx (95838).? * Procedure Codes:?18360 DEBRI DE NAIL, 6 OR MORE * [...] Carmona DPM Date:?2023 Generated for Tanna soto/Paul/Shon on:?02/13/2025 02:25 PM EDT History and Physical Notes * HPI [...]
--- OUTSIDE RECORDS SUMMARY | 2025-02-13 14:25 | XMS_ITS ---
Author Organization [facility] [place] Address [address] [facility] [place] [address] Care Team Providers Care Staff Nuclear Weapons Officer Name Role Phone Efraín Lazaro Primary Care Provider Unav ailable Woo Carmona Unavailable [phone] Allergies Allergen (clinical drug ingredient) Drug/Non Drug [...] Status W/U Status Risk Notes Problem Onychomycosis (983404660) Onychomycosis (B35.1) Active confirmed Vital Signs Height 5 ft 9 in in 11/28/2024 Weight 220 lbs 11/28/2024 BMI 32.48 kg/m2 11/28/2024 Blood pressure systolic 130 mm Hg 11/28/19 25 Blood pressure diastolic 70 mm Hg 025 Procedures Procedure Date Ordered Date Performed Result Body Sit e 44574-KFCHDHF NAIL, 6 OR MORE 11/28/2024 N/A Encounters Encounter Location Date Provider Diagnosis [facility] [place] [address] [place] [address] 11/28/2024 Woo Carmona Pain in right toe(s) M79.674 ; Onychomycosis B35.1 and Pain in left toe(s) M79.675 Assessments Encounter Date Diagnosis (ICD Code) Assessment Notes Treatment Notes Treatment Clinical Notes Section Notes 11/28/2024 Pain in right toe(s) (ICD-10 - M79.674) 11/28/2024 Onychomycosis (ICD-10 - B35.1) 11/28/2024 Pain in left toe(s) (ICD-10 - M79.675) Plan Of Treatment Pending Test Test Name Order Date 01464-AURLNLT NAIL, 6 OR MORE 11/28/2024 Next Appt Details Follow Up: prn, Reason: Provider Name:Woo Carmona , 03/06/2025 09:30:00 AM, [address] [place] [address], [phone], Procedure Notes * Category Sub-Category Detail Notes [...] use of a nail nipper and/or dremel-type machine grinder, to a more viable healthy nail [...] to maintain effectiveness in symptomatic relief - 81559 Progress Notes * Ponce BLAIR RDOB:[birth year] (74 yo M)Acc No.[id number]:11/28/2024 Progress Note Patient:?Ponce BLAIR R Provider:?Woo Carmona DPM :1950???Age:74 Y???Sex:Male Morris e:11/28/2024 Address:[address] [place], [place] [address] Pcp:JULIA Spencer Subjective: * Chief Complaints: * [...] hip replacement 10/25/23 * Hospitalization/Major Diagno stic Procedure:?[facility]- infection of the bladder 06/2013Hip replacement - [facility] 2015Splinter removal 03/2018 * Family History:?Mother: [...] use of a nail nipper and/or dremel-type machine grinder, to a more viable healthy nail [...] to maintain effectiveness in symptomatic relief - 08734.? * Procedure Codes:?80416 DEBRI DE NAIL, 6 OR MORE * Preventive Medicine:? ??Counseling:?Tobacco use:?Patient counseled on the dangers of smoking and urged to quit:?11/28/2024 * Follow Up:?prn * Images: * Sign off status: Completed true * Provider:?Woo Carmona DPM Date:?2024 Generated for Tanna soto/Paul/Shon on:?02/13/2025 02:25 PM [...]
--- OUTSIDE RECORDS SUMMARY | 2025-02-13 14:26 | XMS_ITS | Patient Health Record ---
Author Organization [facility] Address [address] [facility] [place] [address] Care Team Providers Care Clinical Pharmacy Coordinator Name Role Phone Efraín Lazaro Primary Care Provider Unav ailable Woo Carmona Unavailable [phone] Allergies Allergen (clinical drug ingredient) Drug/Non Drug [...] Status W/U Status Risk Notes Problem Onychomycosis (349408026) Onychomycosis (B35.1) Active confirmed Vital Signs Blood pressure diastolic 70 mm Hg 11/28/2024 Height 5 ft 9 in in 11/28/2024 Blood pressure systolic 130 mm Hg 11/28/2024 Weight 220 lbs 11/28/2024 BMI 32.48 kg/m2 11/28/2024 Procedures Procedure Date Ordered Date Performed Result Body Sit e 42332-NIDORNU NAIL, 6 OR MORE 02/22/2024 N/A 76154-FVUULLE NAIL, 6 OR MORE 05/26/2024 N/A 77092-DFJFNFM NAIL, 6 OR MORE 08/29/2024 N/A 82568-RXYDRUN NAIL, 6 OR MORE 11/28/2024 N/A Encounters Encounter Location Date Provider Diagnosis [address] [address] 02/22/2024 Woo Kirstine Tinea unguium B35.1 ; Pain in right toe(s) M79.674 and Pain in left toe(s) M79.[address] [address] 05/26/2024 Woo Kristine Tinea unguium B35.1 ; Pain in right toe(s) M79.674 ; Pain in left toe(s) M79.675 ; Edema, lower extremity R60.0 and Superficial varicosities I83.[address] [address] 08/29/2024 Woo Kristine Tinea unguium B35.1 ; Pain in right toe(s) M79.674 ; Pain in left toe(s) M79.675 and Edema, lower extremity R60.[address] [address] 11/28/2024 Woo Kristine Pain in right toe(s) [...] Treatment Pending Test Test Name Order Date 28175-ZKAUYER NAIL, 6 OR MORE 07/06/2013 34079-YNQRYWJ NAIL, 6 OR MORE 09/29/2013 84688-OIMTOVD NAIL, 6 OR MORE 01/16/2014 14648-EMTYXXE NAIL, 6 OR MORE 04/24/2014 33510-KYWAXTG NAIL, 6 OR MORE 07/31/2014 15640-CMEJIXD NAIL, 6 OR MORE 11/02/2014 31161-FWFNEJJ NAIL, 6 OR MORE 02/08/2015 13540-NWTSMZT NAIL, 6 OR MORE 05/14/2015 24701-HRUFXLO NAIL, 6 OR MORE 08/20/2015 56312-FDIKVLM NAIL, 6 OR MORE 11/22/2015 93306-JLBJHGY NAIL, 6 OR MORE 02/25/2016 13961-IACUHWN NAIL, 6 OR MORE 05/29/2016 66420-FQTBFLM NAIL, 6 OR MORE 08/28/2016 78358-YNGIRLH NAIL, 6 OR MORE 11/20/2016 30716-YTEFXFX NAIL, 6 OR MORE 03/05/2017 16385-XMUIFCK NAIL, 6 OR MORE 07/02/2017 97972-ZZVTFQO NAIL, 6 OR MORE 11/02/2017 75334-OWOCPPD NAIL, 6 OR MORE 01/25/2018 87299-AYXOJLB NAIL, 6 OR MORE 04/12/2018 02326-GWEKFHQ NAIL, 6 OR MORE 07/08/2018 34411-HYSIYRY NAIL, 6 OR MORE 10/21/2018 55715-XPTQCVO NAIL, 6 OR MORE 01/13/2019 44210-IOWWIAQ NAIL, 6 OR MORE 04/28/2019 20687-VYXTLYI NAIL, 6 OR MORE 07/18/2019 27466-WXVVJOI NAIL, 6 OR MORE 09/19/2019 32769-QLCJSXB NAIL, 6 OR MORE 12/12/2019 88388-JBUQUZN NAIL, 6 OR MORE 03/05/2020 77787-SVPZBAI NAIL, 6 OR MORE 05/21/2020 32837-IZMYZKU NAIL, 6 OR MORE 08/09/2020 79167-STSCUPS NAIL, 6 OR MORE 10/29/2020 55994-FGNUIVG NAIL, 6 OR MORE 02/18/2021 84588-DQGORPF NAIL, 6 OR MORE 05/09/2021 68639-NDQJUAH NAIL, 6 OR MORE 08/08/2021 49587-HDRQEOS NAIL, 6 OR MORE 10/28/2021 43425-FUBBOSR NAIL, 6 OR MORE 01/06/2022 17410-WIDSZPZ NAIL, 6 OR MORE 05/15/2022 85057-JHUEDPL NAIL, 6 OR MORE 07/28/2022 71691-NHFWMMC NAIL, 6 OR MORE 10/16/2022 08142-VVHENSK NAIL, 6 OR MORE 12/25/2022 01320-QQVGDJJ NAIL, 6 OR MORE 03/16/2023 74255-MEXOJRY NAIL, 6 OR MORE 05/28/2023 76048-XJQNDYE NAIL, 6 OR MORE 08/27/2023 45179-SWYJYCN NAIL, 6 OR MORE 12/07/2023 51099-HGBOOJX NAIL, 6 OR MORE 02/22/2024 20596-FITNIPB NAIL, 6 OR MORE 05/26/2024 44153-KFITPPV NAIL, 6 OR MORE 08/29/2024 59743-YGRJNQR NAIL, 6 OR MORE 11/28/2024 51162-CKMBQFM NAIL, 6 OR MORE 07/27/2011 04308-KHFBGYN NAIL, 1-5 04/24/2013 72446-Pmlzsqgh Plate 07/27/2011 18076-Emqflroe Plate 10/14/2011 43309-Znahbihe Plate 01/20/2012 53520-Yyscvthr Plate 04/20/2012 78552-Yrnmncau Plate 07/25/2012 54659-Aknhhorv Plate 10/24/2012 56030-Ncvqfujw Plate 01/23/2013 32695- Removal of Foreign Body, Subcut 0 05/21/2020 Next Appt Details Provider Name:Woo Carmona , 03/06/2025 09:30:00 AM, [address] [facility], [place], [address], Insurance Providers Payer Name Payer Address Payer Phone Subscriber Number Group Number Insured Name Patient Relationship to Insured Coverage Start Date Coverage End Date Medicare National [employer]t [employer] [address] [place] [address] [id number] Ponce Fitzpatrick Self - patient is the insured 8 [employer] Secondary to Medicare [address] [place] [address] [id number] Ponce Fitzpatrick Self - patient is the insured Medical (General) History Medical History History ICD Code measles Arthritis Prostate conditions Hypercholesterolemia Surgical History Surgery Date(Month/Year) appendectomy amputation, left thumb and index finger Left Hip Replacement 08/28/15 Heart Valve replacement Surgery 03/01/23 Right hip replacement 10/25/23 Hospitalization History Reason Date(Month/Year) Splinter removal 03/2018 Hip replacement - [address]- infection of the bladder 06/2013
--- OUTSIDE RECORDS SUMMARY | 2025-02-13 14:26 | XMS_ITS ---
Author Organization [facility] zaira [place] Address [address] [facility] [place] [address] Care Team Providers Care Single Stroke Preformer Name Role Phone Efraín Lazaro Primary Care Provider Unav ailable Woo Carmona Unavailable [phone] Allergies Allergen (clinical drug ingredient) Drug/Non Drug [...] Ordered Date Performed Result Body Sit e 70255-UXWIRJP NAIL, 6 OR MORE 08/29/2024 N/A Encounters Encounter Location Date Provider Diagnosis [facility] [place] [address] [place] [address] 08/29/2024 Wooloni ChengKristine Tinea unguium B35.1 ; [...] Treatment Pending Test Test Name Order Date 25945-BSSQNIE NAIL, 6 OR MORE 08/29/2024 Next Appt Details Follow Up: prn, Reason: Provider Name:Woo Carmnoa , 03/06/2025 09:30:00 AM, [address] [place] [address], [phone], Procedure Notes * Category Sub-Category Detail Notes Debride Nail 6-10 Nail debridement Performance o f this nail treatment by a nonprofessional would put this patients foot and overall health at risk. Therefore, nail debridement was performed extensively to reduce/remove overall nail length, girth, thickness, subungual debris, and necrotic tissue, by manual and/or electrical means through the use of a nail nipper and/or dremel-type snuff grinder and screener, to a more viable healthy nail plate or bed tissue 6-10. Silver nitrate used for any petechial bleeding as necessary. Definitive antifungal treatment options have been reviewed and discussed with the patient. The patient chooses, no pharmaceutical tx (16967) Progress Notes * Ponce BLAIR RDOB:[birth year] (74 yo M)Acc No.[id number]:08/29/2024 Progress Note Patient:?ROSSY Ponce R Provider:?Woo Carmona DPM :1950???Age:74 Y???Sex:Male Morris e:08/29/2024 Address:[address] [place] [address] [phone] Pcp:JULIA Spencer Subjective: * [...] hip replacement 10/25/23 * Hospitalization/Major Diagno stic Procedure:?[facility]- infection of the bladder 06/2013Hip replacement - [facility] 2015Splinter removal 03/2018 * Family History:?Mother: [...] use of a nail nipper and/or dremel-type snuff grinder and screener, to a more viable healthy nail plate or bed tissue 6-10. Silver nitrate used for any petechial bleeding as necessary. Definitive antifungal treatment options have been reviewed and discussed with the patient. The patient chooses, no pharmaceutical tx (62617).? * Procedure Codes:?23525 DEBRI DE NAIL, 6 OR MORE * [...]
== END 2025-02-13 13:57 | disposition home or self-care (01) ==
LOC: HO.HGI 13:12
PROVIDERS: PCP Nurse Practitioner Family; Visit Provider Nurse Practitioner Family
DX: Z12.11 Encounter for screening for malignant neoplasm of colon (principal); J98.9 Respiratory disorder, unspecified; J40 Bronchitis, not specified as acute or chronic; I48.0 Paroxysmal atrial fibrillation; Z95.3 Presence of xenogenic heart valve
CPT/HCPCS: 99024

== ENCOUNTER → 2025-02-13 13:11 | Outpatient (BNVA) | payer MEDICARE, SELFPAY | PROVIDERS: PCP Nurse Practitioner Family; Visit Provider Nurse Practitioner Family | DX: Z01.818 Encounter for other preprocedural examination (principal); J40 Bronchitis, not specified as acute or chronic; I48.0 Paroxysmal atrial fibrillation; Z95.3 Presence of xenogenic heart valve; Z98.890 Other specified postprocedural states | CPT/HCPCS: 99212 ==

== ENCOUNTER → 2025-02-22 08:10 | Outpatient (REF) | payer MEDICARE, SELFPAY ==
--- OUTSIDE RECORDS SUMMARY | 2025-02-22 08:12 | XMS_ITS ---
Author Organization [facility] [place] Address [address] [facility] [place] [address] Care Team Providers Care Felt Cementer Name Role Phone Efraín Lazaro Primary Care Provider Unav ailable Woo Carmona Unavailable [phone] Allergies Allergen (clinical drug ingredient) Drug/Non Drug [...] Status W/U Status Risk Notes Problem Onychomycosis (639688044) Onychomycosis (B35.1) Active confirmed Vital Signs Height 5 ft 9 in in 11/28/2024 Weight 220 lbs 11/28/2024 BMI 32.48 kg/m2 11/28/2024 Blood pressure systolic 130 mm Hg 11/28/19 25 Blood pressure diastolic 70 mm Hg 025 Procedures Procedure Date Ordered Date Performed Result Body Sit e 98966-YYHDOYB NAIL, 6 OR MORE 11/28/2024 N/A Encounters Encounter Location Date Provider Diagnosis [facility] [place] [address] [place] [address] 11/28/2024 Woo Carmona Pain in right toe(s) M79.674 ; Onychomycosis B35.1 and Pain in left toe(s) M79.675 Assessments Encounter Date Diagnosis (ICD Code) Assessment Notes Treatment Notes Treatment Clinical Notes Section Notes 11/28/2024 Pain in right toe(s) (ICD-10 - M79.674) 11/28/2024 Onychomycosis (ICD-10 - B35.1) 11/28/2024 Pain in left toe(s) (ICD-10 - M79.675) Plan Of Treatment Pending Test Test Name Order Date 06711-ZPWAIPB NAIL, 6 OR MORE 11/28/2024 Next Appt Details Follow Up: prn, Reason: Provider Name:Woo Carmona , 03/06/2025 09:30:00 AM, [address] [place] [address], [phone], Procedure Notes * Category Sub-Category Detail Notes [...] use of a nail nipper and/or dremel-type watch crystal edge grinder, to a more viable healthy nail [...] to maintain effectiveness in symptomatic relief - 12298 Progress Notes * Ponce BLAIR RDOB:[birth year] (74 yo M)Acc No.[id number]:11/28/2024 Progress Note Patient:?Ponce BLAIR R Provider:?Woo Carmona DPM :1950???Age:74 Y???Sex:Male Morris e:11/28/2024 Address:[address] [place], [place] [address] Pcp:JULIA Spencer Subjective: * Chief Complaints: * [...] hip replacement 10/25/23 * Hospitalization/Major Diagno stic Procedure:?[facility]- infection of the bladder 06/2013Hip replacement - [facility] 2015Splinter removal 03/2018 * Family History:?Mother: [...] use of a nail nipper and/or dremel-type watch crystal edge grinder, to a more viable healthy nail [...] to maintain effectiveness in symptomatic relief - 74905.? * Procedure Codes:?02996 DEBRI DE NAIL, 6 OR MORE * Preventive Medicine:? ??Counseling:?Tobacco use:?Patient counseled on the dangers of smoking and urged to quit:?11/28/2024 * Follow Up:?prn * Images: * Sign off status: Completed true * Provider:?Woo Carmona DPM Date:?2024 Generated for Tanna soto/Paul/Shon on:?02/22/2025 08:12 AM EDT History and Physical Notes * [...]
--- OUTSIDE RECORDS SUMMARY | 2025-02-22 08:13 | XMS_ITS ---
Author Organization [facility] zaira [place] Address [address] [facility] [place] [address] Care Team Providers Care Linesperson Name Role Phone Efraín Lazaro Primary Care Provider Unav ailable Woo Carmona Unavailable [phone] Allergies Allergen (clinical drug ingredient) Drug/Non Drug [...] Ordered Date Performed Result Body Sit e 69650-BWIYHOG NAIL, 6 OR MORE 05/26/2024 N/A Encounters Encounter Location Date Provider Diagnosis [facility] [address] [address] 05/26/2024 Woo Carmona Tinea unguium B35.1 ; [...] days Pending Test Test Name Order Date 38120-DWXERMJ NAIL, 6 OR MORE 05/26/2024 Next Appt Details Follow Up: prn, Reason: Provider Name:Woo Carmona , 03/06/2025 09:30:00 AM, [address] [place] [address], [phone], Procedure Notes * Category Sub-Category Detail Notes Debride Nail 6-10 Nail debridement Performance o f this nail treatment by a nonprofessional would put this patients foot and overall health at risk. Therefore, nail debridement was performed extensively to reduce/remove overall nail length, girth, thickness, subungual debris, and necrotic tissue, by manual and/or electrical means through the use of a nail nipper and/or dremel-type ink grinder, to a more viable healthy nail plate or bed tissue 6-10. Silver nitrate used for any petechial bleeding as necessary. Definitive antifungal treatment options have been reviewed and discussed with the patient. The patient chooses, no pharmaceutical tx (09466) Progress Notes * Ponce BLAIR RDOB:[birth year] (74 yo M)Acc No.[id number]:05/26/2024 Progress Note Patient:?Ponce BLAIR Provider:?Woo Carmona DPM :1950???Age:74 Y???Sex:Male Morris e:05/26/2024 Address:[address] [place], [place] [phone] Pcp:JULIA Spencer Subjective: * Chief Complaints: * [...] hip replacement 10/25/23 * Hospitalization/Major Diagno stic Procedure:?[facility]- infection of the bladder 06/2013Hip replacement - [facility] 2015Splinter removal 03/2018 * Family History:?Mother: dece [...] use of a nail nipper and/or dremel-type ink grinder, to a more viable healthy nail plate or bed tissue 6-10. Silver nitrate used for any petechial bleeding as necessary. Definitive antifungal treatment options have been reviewed and discussed with the patient. The patient chooses, no pharmaceutical tx (73952).? * Procedure Codes:?11615 DEBRI DE NAIL, 6 OR MORE * [...] Carmona DPM Date:?2023 Generated for Tanna soto/Paul/Shon on:?02/22/2025 08:12 AM [...]
--- OUTSIDE RECORDS SUMMARY | 2025-02-22 08:13 | XMS_ITS ---
Author Organization [facility] zaira [place] Address [address] [facility] [place] [address] Care Team Providers Care Pain Management Nurse Practitioner Name Role Phone Efraín Lazaro Primary Care Provider Unav ailable Woo Carmona Unavailable [phone] Allergies Allergen (clinical drug ingredient) Drug/Non Drug [...] Ordered Date Performed Result Body Sit e 30373-EZRICNU NAIL, 6 OR MORE 08/29/2024 N/A Encounters Encounter Location Date Provider Diagnosis [facility] [place] [address] [place] [address] 08/29/2024 Wooloni ChengKristine Tinea unguium B35.1 ; [...] Treatment Pending Test Test Name Order Date 22049-OIVVMTW NAIL, 6 OR MORE 08/29/2024 Next Appt Details Follow Up: prn, Reason: Provider Name:Woo Carmona , 03/06/2025 09:30:00 AM, [address] [place] [address], [phone], Procedure Notes * Category Sub-Category Detail Notes Debride Nail 6-10 Nail debridement Performance o f this nail treatment by a nonprofessional would put this patients foot and overall health at risk. Therefore, nail debridement was performed extensively to reduce/remove overall nail length, girth, thickness, subungual debris, and necrotic tissue, by manual and/or electrical means through the use of a nail nipper and/or dremel-type thread grinder tool, to a more viable healthy nail plate or bed tissue 6-10. Silver nitrate used for any petechial bleeding as necessary. Definitive antifungal treatment options have been reviewed and discussed with the patient. The patient chooses, no pharmaceutical tx (34162) Progress Notes * Ponce BLAIR RDOB:[birth year] (74 yo M)Acc No.[id number]:08/29/2024 Progress Note Patient:?ROSSY Ponce R Provider:?Woo Carmona DPM :1950???Age:74 Y???Sex:Male Morris e:08/29/2024 Address:[address] [place] [address] [phone] Pcp:JULIA Spencer Subjective: * [...] infection of the bladder 06/2013Hip replacement - [facility] 2015Splinter removal 03/2018 * Family History:?Mother: [...] use of a nail nipper and/or dremel-type thread grinder tool, to a more viable healthy nail plate or bed tissue 6-10. Silver nitrate used for any petechial bleeding as necessary. Definitive antifungal treatment options have been reviewed and discussed with the patient. The patient chooses, no pharmaceutical tx (76131).? * Procedure Codes:?33292 DEBRI DE NAIL, 6 OR MORE * [...]
--- OUTSIDE RECORDS SUMMARY | 2025-02-22 08:13 | XMS_ITS | Patient Health Record ---
Author [facility] Address [address] [facility] [place] [address] Care Team Providers Care School Patrol Name Role Phone Efraín Lazaro Primary Care Provider Unav ailable Woo Carmona Unavailable [phone] Allergies Allergen (clinical drug ingredient) Drug/Non Drug [...] Status W/U Status Risk Notes Problem Onychomycosis (021876752) Onychomycosis (B35.1) Active confirmed Vital Signs Blood pressure diastolic 70 mm Hg 11/28/2024 Height 5 ft 9 in in 11/28/2024 Blood pressure systolic 130 mm Hg 11/28/2024 Weight 220 lbs 11/28/2024 BMI 32.48 kg/m2 11/28/2024 Procedures Procedure Date Ordered Date Performed Result Body Sit e 86395-GQHKRVH NAIL, 6 OR MORE 05/26/2024 N/A 46351-OUOUTWX NAIL, 6 OR MORE 08/29/2024 N/A 89946-EAMKXVI NAIL, 6 OR MORE 11/28/2024 N/A Encounters Encounter Location Date Provider Diagnosis [address] [address] 05/26/2024 Woo Kristine Tinea unguium B35.1 ; Pain in right toe(s) M79.674 ; Pain in left toe(s) M79.675 ; Edema, lower extremity R60.0 and Superficial varicosities I83.[address] [address] 08/29/2024 Woo Kristine Tinea unguium B35.1 ; Pain in right toe(s) M79.674 ; Pain in left toe(s) M79.675 and Edema, lower extremity R60.[address] [address] 11/28/2024 Woo Kristine Pain in right toe(s) [...] in left toe(s) (ICD-10 - M79.675) 08/29/2024 Pain in left toe(s) (ICD-10 - M79.675) 11/28/2024 Onychomycosis (ICD-10 - B35.1) 11/28/2024 Pain in left toe(s) (ICD-10 - M79.675) 08/29/2024 Edema, lower extremity (ICD-10 - R60.0) 05/26/2024 Edema, lower extremity (ICD-10 - R60.0) 05/26/2024 Superficial varicosities (ICD-10 - I83.90) Plan Of Treatment Pending Test Test Name Order Date 85610-RZRKKVP NAIL, 6 OR MORE 05/29/2016 38444-WBEAEFE NAIL, 6 OR MORE 11/20/2016 01995-JDWEQUM NAIL, 6 OR MORE 03/05/2017 09693-FCVWEED NAIL, 6 OR MORE 07/02/2017 21894-HKNEBDK NAIL, 6 OR MORE 11/02/2017 38731-SBDNIUK NAIL, 6 OR MORE 01/25/2018 93199-BNNHQOO NAIL, 6 OR MORE 07/08/2018 21749-SRFGCZK NAIL, 6 OR MORE 10/21/2018 95133-LKRDUBS NAIL, 6 OR MORE 07/18/2019 03021-NNNVZEA NAIL, 6 OR MORE 09/19/2019 39825-CBNWRID NAIL, 6 OR MORE 12/12/2019 77880-LLQUUNO NAIL, 6 OR MORE 03/05/2020 55547-FFJWCWE NAIL, 6 OR MORE 08/09/2020 90665-EIOJECU NAIL, 6 OR MORE 10/29/2020 08740-XECZHVC NAIL, 6 OR MORE 02/18/2021 83985-DSCEHDO NAIL, 6 OR MORE 05/09/2021 84266-FPHCSAV NAIL, 6 OR MORE 08/08/2021 15434-WQACCAL NAIL, 6 OR MORE 10/28/2021 17689-HHUKRFV NAIL, 6 OR MORE 01/06/2022 40196-AKFMZEY NAIL, 6 OR MORE 05/15/2022 55418-RPQVWUP NAIL, 6 OR MORE 12/25/2022 10233-PZNZNZI NAIL, 6 OR MORE 03/16/2023 14092-GCTPOGJ NAIL, 6 OR MORE 05/28/2023 94839-ANNYSGY NAIL, 6 OR MORE 12/07/2023 09065-MWHNLEA NAIL, 6 OR MORE 05/26/2024 74808-DSGQXVD NAIL, 6 OR MORE 08/29/2024 94766-NBMNXAC NAIL, 6 OR MORE 11/28/2024 61821-RDNASHT NAIL, 6 OR MORE 08/28/2016 06333-GRBDVME NAIL, 6 OR MORE 08/20/2015 36759-IKYVJNM NAIL, 6 OR MORE 05/14/2015 60820-DOHTRLT NAIL, 6 OR MORE 02/08/2015 39505-SQZOHJS NAIL, 6 OR MORE 11/02/2014 18435-KFJUXEA NAIL, 6 OR MORE 07/31/2014 04356-TCANFER NAIL, 6 OR MORE 04/24/2014 59344-DOEKZYA NAIL, 6 OR MORE 01/16/2014 43218-MENIBRI NAIL, 6 OR MORE 07/06/2013 38640-MYFBRSH NAIL, 6 OR MORE 07/27/2011 01195-UFGMCVD NAIL, 6 OR MORE 02/25/2016 90619-XZQXAAS NAIL, 6 OR MORE 11/22/2015 15971-RDYEIOB NAIL, 6 OR MORE 02/22/2024 76807-JVJMYOI NAIL, 6 OR MORE 08/27/2023 23035-MCTTQCC NAIL, 6 OR MORE 05/21/2020 56116-YCGZPPL NAIL, 6 OR MORE 04/28/2019 68730-EMTOTRE NAIL, 6 OR MORE 01/13/2019 23633-CUDBTKI NAIL, 6 OR MORE 04/12/2018 08199-HJSGISG NAIL, 6 OR MORE 07/28/2022 05825-IACOCUK NAIL, 6 OR MORE 10/16/2022 21409-MUTYVFG NAIL, 6 OR MORE 09/29/2013 84946-FCTLWNT NAIL, 1-5 04/24/2013 77085-Ruaphoui Plate 01/23/2013 58402-Rdccbnuu Plate 10/24/2012 59831-Rqggouje Plate 07/27/2011 44052-Fjuuypyj Plate 10/14/2011 03907-Bexieggz Plate 04/20/2012 10193-Mzgonxxm Plate 07/25/2012 31324-Hybejtne Plate 01/20/2012 32419- Removal of Foreign Body, Subcut 0 05/21/2020 Next Appt Details Provider Name:Woo Carmona , 03/06/2025 09:30:00 AM, [address] [place], [phone], Insurance Providers Payer Name Payer Address Payer Phone Subscriber Number Group Number Insured Name Patient Relationship to Insured Coverage Start Date Coverage End Date Medicare National Govt [facility] [address] [place] [address] [id number] Ponce Fitzpatrick Self - patient is the insured 8 [employer] Secondary to Medicare [address] [place] [address] [id number] Ponce Fitzpatrick Self - patient is the insured Medical (General) History Medical History History ICD Code measles Arthritis Prostate conditions Hypercholesterolemia Surgical History Surgery Date(Month/Year) appendectomy amputation, left thumb and index finger Left Hip Replacement 08/28/15 Heart Valve replacement Surgery 03/01/23 Right hip replacement 10/25/23 Hospitalization History Reason Date(Month/Year) Splinter removal 03/2018 Hip replacement - [address]- infection of the bladder 06/2013
== END ==
LOC: HO.CARD 08:10
PROVIDERS: PCP Nurse Practitioner Family; Visit Provider Nurse Practitioner Family
DX: I48.0 Paroxysmal atrial fibrillation (principal)
CPT/HCPCS: 93246

== ENCOUNTER → 2025-02-22 08:18 | Outpatient (BNV) | payer MEDICARE, SELFPAY | PROVIDERS: PCP Nurse Practitioner Family; Visit Provider Internal Medicine | DX: I47.10 Supraventricular tachycardia, unspecified (principal) | CPT/HCPCS: 93248 ==

== ENCOUNTER 2025-04-10 08:48 | Outpatient (AMB) | payer MEDICARE, SELFPAY ==
--- OUTSIDE RECORDS SUMMARY | 2025-03-06 05:30 | XMS_ITS ---
Author Organization [facility] Address [address] [place] [address] Care Team Providers Care Lime Kiln And Recausticizing Operator Name Role Phone Erfaín Lazaro Primary Care Provider Unav ailable Woo Carmona Unavailable [phone] Encounters Encounter Location Date Provider Diagnosis [address] [address] 03/06/2025 Woo Carmona Plan Of Treatment Next Appt Details Provider Name:Allie best, 06/28/2025 09:15:00 AM, [address] [place] [address], [phone], Progress Notes * Ponce BLAIR RDOB:[birth year] (74 yo M)Acc No.[id number]:03/06/2025 Progress Note Patient: Ponce WOMACK Provider: Tigre Carmona DPM :1950 A ge:74 Y S ex:Male Date:03/06/2025 Address:[address] [place], [place] [id number] Pcp:JULIA Spencer Subjective: * Chief Complaints: * [...] 0 03/06/2025 Generated for Tanna soto/Paul/Shon on: 04/10/2025 09:05 AM EDT
[2025-04-10 08:51] VITALS: BP 116/62; PULSE 69; O2SAT 94; BMI 30.4
--- NOTE | 2025-04-10 08:51 | A.OFFVIS_ITS ---
Intake Vital Signs 04/10/25 08:51 Height 5 ft 9 in Weight 206 lb BMI 30.4 BP 116/62 Blood Pressure Location Rt brachial Position Sitting Pulse 69 Pulse Source Pulse Oximeter Pulse Oximetry (%) 94 Oxygen Delivery Method Room Air Intake Visit Reasons: AWV G0439, resched Historical Society Director Required: No Accompanied by: Self / Same As Patient Allergies apixaban (From Eliquis) Allergy (Intermediate, Verified 04/10/25 09:26) Rash formaldehyde (FORMALDEHYDE) Allergy (Unknown, Verified 04/10/25 09:26) HIVES lanolin Allergy (Verified 04/10/25 09:26) Hives propylene glycol Allergy (Verified 04/10/25 09:26) Rash a steroid cream; he is not dimitry Allergy (Unknown, Uncoded 04/10/25 09:26) Unknown sandi donuts and subway Allergy (Unknown, Uncoded 04/10/25 09:26) Unknown Medication List - Last Reconciled 04/10/25 by MOON Solorio acetaminophen 650 mg PO BID amlodipine 10 mg PO DAILY atorvastatin 40 mg PO QPM [bedside commode As directed] betamethasone dipropionate 0.05% topical cane As directed cetirizine 10 mg PO BID cholecalciferol (vitamin D3) 125 mcg PO DAILY finasteride 5 mg PO BEDTIME gabapentin 300 mg PO TID 30 days losartan 100 mg PO DAILY nystatin 1 appl topical DAILY PRN [Raised toliet seat As directed] tamsulosin 0.4 mg PO BEDTIME walker Folding front wheeled walker Do you need a note to return to daycare/school/sports/work: No HPI AWV G0439, resched HPI Details AWV: PPP in scan pile, CCC not filled out. pt [facility] LDCTs. Colon screen only to performed if cleared by cardiology. HPI Comments History of Present Illness Details HTN: stable on current meds. carotid US ordered due to Hx of smoking and CAD. [facility] Medical History Dermatochalasis of both eyelids Afib HTN (hypertension) Vaccination refused by patient Acute hypoxic respiratory failure Osteoarthritis of right hip Arthritis Enlarged prostate Cough Elevated cholesterol HTN (hypertension) Right shoulder pain Non-rheumatic aortic stenosis Severe aortic stenosis Diverticulosis Umbilical hernia Deformity of left hand Systolic murmur Smoker COPD (chronic obstructive pulmonary disease) Skin cancer Rectus diastasis Surgical History Hx of hand surgery H/O colonoscopy Status post transcatheter aortic valve replacement (TAVR) using bioprosthesis Aortic valve replaced S/P cardiac catheterization History of left hip replacement Family History Father Unknown family medical history Mother No problems noted. Social History Household Members: Significant Other Housing: House Are you a primary wound care physician to a significant other at home: No Do you presently have visiting nurse or other home services: No Alcohol intake: never Comment: pt refusing high falls measures except socks and signage Patient Tobacco Use Status: Current everyday Tobacco user Tobacco use type: Cigarette Cigarette Packs Per Day: 0.5 Cigarettes Per Day: 10.0 Years Smoked: 55 e-Cigarette/Vaping Use: Never Used Second Hand Smoke Exposure: No service: No Current occupational status: employed Cognitive needs: No Hearing needs: No Vision needs: Yes Questionnaire Medicare Wellness Checkup [age] What gender do you identify with?: male During the past 4 weeks, how much have you been bothered by emotional problems such as feeling anxious, depressed, irritable, sad or downhearted, and blue?: slightly During the past 4 weeks, has your physical & emotional health limited your social activities with family, friends, neighbors, or groups?: slightly During the past 4 weeks, how much bodily pain have you generally had?: mild pain During the past 4 weeks, was someone available to help you if you needed & wanted help?: yes, as much as I wanted During the past 4 weeks, what was the hardest physical activity you could do for at least 2 minutes?: very heavy Can you get to places out of walking distance without help? (For eg., can you travel alone on buses, taxis or drive your car?): Yes Can you go shopping for groceries or clothes without someone's help?: Yes Can you prepare your own meals?: Yes Can you do your housework without help?: Yes Because of any health problems, do you need the help of another person with your personal care needs such as eating, bathing, dressing or getting around the house?: No Can you handle your own money without help?: No During the past 4 weeks, how would you rate your health in general?: good During the past 4 weeks how have things been going for you?: pretty well Are you having difficulties driving your car?: no Do you always fasten your seat belt when you are in a car?: yes, usually During past 4 weeks, have you been bothered by the following: never: Falling or dizzy when standing up, Trouble eating well?, Teeth or denture problems? and Problems using the telephone? and always: Sexual problems? and Tiredness or fatigue? Have you fallen 2 or more times in the past year?: No Are you afraid of falling?: No Are you a smoker?: yes, and I might quit During the past 4 weeks, how many drinks of wine, beer, or other alcoholic beverages did you have?: no alcohol at all Do you exercise for about 20 minutes 3 or more times a week?: yes, most of the time Have you been given information to help with the following?: no: Hazards in your house that might hurt you? and no: Keeping track of your medications? How often do you have trouble taking medicines the way you have been told to take them?: I always take medicine as prescribed How confident are you that you can control & manage most of your health problems?: very confident What is your race?: White Mini Mental State Exam (MMSE) Orientation What is the (year) (season) (date) (day) (month)?: year, season, date, day and month Where are we (state) (county) (town or city) (hospital) (floor)?: state, county, town or city, hospital/clinic and floor Registration Name of 3 unrelated objects clearly and slowly, then ask patient to repeat all 3 of them. (1st repeat determines score. Make sure they can repeat all three): object 1, object 2 and object 3 Attention & Calculation (CHOOSE ONE) Spell WORLD backwards (DLROW): 4 letters Recall Ask patient to repeat the 3 items from question #3.: object 1, object 2 and object 3 Language Show patient a wristwatch & ask what it is. Repeat for pencil.: pencil Ask the patient to repeat the phrase 'No ifs, ands, or buts' after you.: correct Ask the patient to 'take a piece of paper with their right hand' 'fold paper in half' 'place paper on floor': take paper in right hand, fold paper in half and place paper on floor Print the sentence 'CLOSE YOUR EYES' on a piece. If patient actually closes eyes then score.: followed written direction Give patient a blank piece of paper & ask to write a sentence. Score if it contains a noun & verb.: sentence contains subject and verb Score Score: 27 Activity of Daily Living Bathing - sponge bath, tub bath or shower: receives no assistance (gets in/out by self, if usual bathing means Dressing - getting clothes from closets & drawers, including inner/outer garments & fasteners.: gets clothes & gets completely dressed without help Toileting - going to the 'toilet room' for urine/bowel elimination & cleaning self/arranging clothes: goes to toilet room, cleans self, arranges clothes without help Transfer: moves in & out of bed and chair without help (may use support object) Continence: controls urination/bowel movements completely by self Feeding: feeds self without help Total Score: 0 Information obtained from: patient Using telephone: independent Traveling: independent Shopping: independent Preparing meals: independent Housework: independent Taking medicine: independent Managing money: independent PHQ-9 Over the last 2 weeks, how often have you been bothered by any of the following problems? 1. Little interest or pleasure in doing things: not at all 2. Feeling down, depressed, or hopeless: not at all 3. Trouble falling or staying asleep, or sleeping too much: not at all 4. Feeling tired or having little energy: not at all 5. Poor appetite or overeating: not at all 6. Feeling bad about yourself - or that you are a failure or have let yourself or your family down: not at all 7. Trouble concentrating on things, such as reading the newspaper or watching television: not at all 8. Moving or speaking so slowly that other people could have noticed. Or the opposite - being so fidgety or restless that you have been moving around a lot more than usual: not at all 9. Thoughts that you would be better off or of hurting yourself in some way: not at all Total score: 0 Depression Screening Interpretation: Negative Depression Screening Done: Yes 58472 - PHQ-9 Billing: Yes Source: Developed by Drs. Stephen Campbell, Sarah Arzate, Johnny Song and colleagues, with an educational loly from [employer]. CARINA-7 AMB Questionnaire CARINA-7 Date CARINA - 7 assessed: 04/10/25 Feeling nervous, anxious, or on edge: 0 = Not at all Not being able to stop or control worryin = Not at all Worrying too much about different things: 0 = Not at all Trouble relaxin = Not at all Being so restless that it is hard to sit still: 0 = Not at all Becoming easily annoyed or irritable: 0 = Not at all Feeling afraid as if something awful might happen: 0 = Not at all Total CARINA-7 score (0-4 normal; 5-9 mild; 10-14 moderate; 15-21 severe): 0 Source: Developed by Drs. Stephen Campbell, Sarah Arzate, Johnny Song and colleagues, with an educational loly from [employer]. CARINA-7 Assessment Billing CARINA-7 Assessment Tool: CARINA-7 Assessment 78979 Review of Systems Const Details: denies any increased sob, cp, n/v, blurred vision, fevers, chills, bowel issues, bladder issues Physical Exam Vital Signs: Last Vital Signs Pulse 69 04/10/25 08:51 BP 116/62 04/10/25 08:51 Pulse Ox 94 04/10/25 08:51 Oxygen Delivery Method Room Air 04/10/25 08:51 BMI result Body Mass Index 30.4 Resp Other: dim though moving air bilat Cardio Other: systolic murmur, s1 s2 Skin Other: trace edema to BLE Neuro Other: able to stand from sitting position, able to tandem walk, passed whisper test, neg rhomberg Assessment & Plan Assessment & Plan (1) Encounter for subsequent annual wellness visit (AWV) in Medicare patient: Code(s): Z00.00 - Encounter for general adult medical examination without abnormal findings (2) HTN (hypertension): Code(s): I10 - Essential (primary) hypertension (3) Vitamin D deficiency: Code(s): E55.9 - Vitamin D deficiency, unspecified (4) Coronary artery disease: Code(s): I25.10 - Atherosclerotic heart disease of [place] coronary artery without angina pectoris Qualifiers: Coronary Disease-Associated Artery/Lesion type: [place] artery Associated angina: without angina (5) Carotid stenosis: Code(s): I65.29 - Occlusion and stenosis of unspecified carotid artery Plan . Orders: Orders Complete Blood Count Auto Diff Today I10 - Essential (primary) hypertension Comprehensive [place]. Panel Fast Today I10 - Essential (primary) hypertension Lipid Panel Today I10 - Essential (primary) hypertension Vitamin D 25-OH Total Today E55.9 - Vitamin D deficiency, unspecified US carotid duplex BI Today I25.10 - Atherosclerotic heart disease of [place] coronary artery without angina pectoris, I65.29 - Occlusion and stenosis of unspecified carotid artery TSH reflex Free T4 Today I10 - Essential (primary) hypertension UA CC w/rflx Micro + Cult Today I10 - Essential (primary) hypertension Quality Reporting (2019) Depression/Bipolar (159/160/161/177) PHQ-9: Total score: 0 Coding Level of Care Code Medicare Subsequent (G0439) Est Pt Level 3 (30643) Diagnoses Encounter for subsequent annual wellness visit (AWV) in Medicare patient Z00.00 HTN (hypertension) I10 Vitamin D deficiency E55.9 Coronary artery disease I25.10 Coronary Disease-Associated Artery/Lesion type: [place] artery Associated angina: without angina Carotid stenosis I65.29 CPT Codes Advance Care Planning - Time spent: 1-15 minutes, on File ([id number]) Additional Codes CARINA-7 Assessment Billing - CARINA-7 Assessment Tool: CARINA-7 Assessment 31228 ([id number]) PHQ-9 - 47811 - PHQ-9 Billing: Yes ([id number]) Advance Care Planning Forms completed: Health Care Proxy (done), MOLST (form explained and given to pt) and Living will (recommended getting done) Time spent: 1-15 minutes, on File Actual minutes spent: 12
== END 2025-04-10 09:49 | disposition home or self-care (01) ==
LOC: HO.HMCC 08:49
PROVIDERS: PCP Nurse Practitioner Family; Visit Provider Nurse Practitioner Family
DX: Z00.00 Encounter for general adult medical examination without abnormal findings (principal); I10 Essential (primary) hypertension; E55.9 Vitamin D deficiency, unspecified; I25.10 Atherosclerotic heart disease of native coronary artery without angina pectoris; I65.29 Occlusion and stenosis of unspecified carotid artery

== ENCOUNTER 2025-04-10 08:48 | Outpatient (REF) | payer MEDICARE, SELFPAY ==
[2025-04-10 12:58] LABS: MANUAL DIFF FLAG NO
[2025-04-10 13:16] LABS: Hematocrit 43.8 % (42.0-52.0); Hemoglobin 14.0 g/dl (14.0-18.0); Imm Gran Abs Auto 0.01 X10*3/uL (0.00-0.03); Imm Gran Pct Auto 0.2 % (0.0-0.4); Lymphocytes Absolute Auto 1.7 X10*3/uL (1.2-4.9); Mean Corpuscular HGB Conc 32.0 g/dl (31.0-36.0); Mean Corpuscular Hemoglobin 28.7 pg (27.0-33.0); Mean Corpuscular Volume 89.9 fL (80.0-98.0); NRBC Abs Auto 0.000 X10*3/uL (0.0-0.012); NRBC Pct Auto 0.0 /100WBC (0.0-0.2); Platelet Count 163 X10*3/uL (160-400); Red Blood Count 4.87 X10*6/uL (4.60-5.80); White Blood Count 5.6 X10*3/uL (4.8-10.8)
[2025-04-10 13:22] LABS: Appearance Urine Clear; Glucose Urine UA Negative (Negative); PH 7.0 (5.0-9.0); Specific Gravity - Urine <= 1.005 (1.005-1.025)
[2025-04-10 13:56] LABS: Alanine Aminotransferase 23 U/L (0-40); Albumin Level 4.3 g/dL (3.5-5.0); Alkaline Phosphatase 59 U/L (39-117); Anion Gap 12 (12-20); Aspartate Amino Transferase 38 U/L (5-37); Blood Urea Nitrogen 18 mg/dL (9-16); Calcium 9.5 mg/dL (8.4-10.2); Carbon Dioxide 26 mmol/L (22-29); Chloride 109 mmol/L (96-108); Cholesterol 207 mg/dL (<200); Estimated Glomerular Filt Rate > 60; HDL Cholesterol 44 mg/dL (>40); Potassium 4.4 mmol/L (3.3-5.1); Sodium 143 mmol/L (135-145); Total Protein 6.6 g/dL (6.5-8.0); Triglycerides 122 mg/dL (<150)
== END 2025-04-10 08:49 | disposition home or self-care (01) ==
LOC: HO.HMGCLDS 08:48
PROVIDERS: PCP Nurse Practitioner Family; Visit Provider Nurse Practitioner Family
DX: Z00.00 Encounter for general adult medical examination without abnormal findings (principal); I10 Essential (primary) hypertension; E55.9 Vitamin D deficiency, unspecified; I25.10 Atherosclerotic heart disease of native coronary artery without angina pectoris; I65.29 Occlusion and stenosis of unspecified carotid artery; Z13.31 Encounter for screening for depression; Z13.30 Encounter for screening examination for mental health and behavioral disorders, unspecified
CPT/HCPCS: 36415; 80053; 80061; 81003; 82306; 84443; 85025; 96127; 99212

== ENCOUNTER 2025-04-18 10:40 | Outpatient (AMB) | payer MEDICARE, SELFPAY ==
--- OUTSIDE RECORDS SUMMARY | 2025-03-06 05:30 | XMS_ITS ---
Author Organization [facility] Address [address] [place] [address] Care Team Providers Care Truck Assembler Name Role Phone Efraín Lazaro Primary Care Provider Unav ailable Woo Carmona Unavailable [phone] Encounters Encounter Location Date Provider Diagnosis [address] [address] 03/06/2025 Woo Carmona Plan Of Treatment Next Appt Details Provider Name:Allie best, 06/28/2025 09:15:00 AM, [address] [place] [address], [phone], Progress Notes * Ponce BLAIR RDOB:[birth year] (74 yo M)Acc No.[id number]:03/06/2025 Progress Note Patient: Ponce WOMACK Provider: Tigre Carmona DPM :1950 A ge:74 Y S ex:Male Date:03/06/2025 Address:[address] [place], [place] [id number] Pcp:JULIA Spencer Subjective: * Chief Complaints: * [...] DPM Date: 0 03/06/2025 Generated for Tanna soto/Murray on: 0 04/18/2025 11:42 AM EDT
[2025-04-18 10:58] VITALS: BP 102/52; PULSE 70; O2SAT 96; BMI 31.3
--- NOTE | 2025-04-18 10:58 | A.OFFVIS_ITS ---
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 Technician Required: No Allergies apixaban (From Eliquis) Allergy (Intermediate, Verified 04/18/25 11:55) Rash formaldehyde (FORMALDEHYDE) Allergy (Unknown, Verified 04/18/25 11:55) HIVES lanolin Allergy (Verified 04/18/25 11:55) Hives propylene glycol Allergy (Verified 04/18/25 11:55) Rash a steroid cream; he is not dimitry Allergy (Unknown, Uncoded 04/18/25 11:55) Unknown sandi donuts and subway Allergy (Unknown, Uncoded 04/18/25 11:55) Unknown Medication List - Last Reconciled 04/18/25 by Hakeem Chun MD acetaminophen 650 mg PO BID atorvastatin 40 mg PO QPM [bedside commode As directed] betamethasone dipropionate 0.05% topical cane As directed cetirizine 10 mg PO BID cholecalciferol (vitamin D3) 125 mcg PO DAILY finasteride 5 mg PO BEDTIME gabapentin 300 mg PO TID 30 days losartan 100 mg PO DAILY nystatin 1 appl topical DAILY PRN [Raised toliet seat As directed] tamsulosin 0.4 mg PO BEDTIME walker Folding front wheeled walker Do you need a note to return to daycare/school/sports/work: No HPI HPI Bronchitis: Details: 74 YEARS OLD GENTLEMAN IS BEING SEEN FOR THE 1ST TIME FOR PULMONARY EVALUATION AND ONGOING MANAGEMENT. INITIALLY HE STATED THAT HE WAS NOT AWARE OF THE REASON FOR COMING OVER HERE. ON FURTHER QUESTIONING HE ADMITS THAT FOR THE LAST 6-8 YEARS HE HAS HAD FREQUENT BOUTS OF COUGH, SOMETIME ASSOCIATED WITH WHEEZING, AND HAS SOME SHORTNESS OF BREATH ON WALKING FAST OR CLIMBING STAIRS. IN SEPTEMBER 2024 HE WAS TREATED FOR PNEUMONIA AT [facility]. HE HAS BEEN HAVING ANNUAL LUNG SCREENING WITH LD CT AT [facility] UP UNTIL LAST YEAR. HIS LDCT IN 2023 SHOWED A 3 MM AND A 4 MM PULMONARY NODULES. HE DOES NOT RECALL HAVING HAD A PULMONARY FUNCTION TEST HE HAS HISTORY OF SMOKING THROUGHOUT HIS ADULT LIFE AT 1 PACK OF CIGARETTES A DAY BUT SINCE ABOUT 5 YEARS AGO HE HAS CUT IT DOWN TO HALF PACK A DAY. HE DOES NOT HAVE ANY BRONCHODILATOR INHALER AT HOME, AND CLAIMS THAT HE DOES NOT NEED TO USE IT . [place] [facility] [place] [facility] IS REVIEWED [facility] Medical History (Updated 04/18/25 @ 12:13 by Hakeem Chun MD) Dermatochalasis of both eyelids Afib HTN (hypertension) Vaccination refused by patient Acute hypoxic respiratory failure Osteoarthritis of right hip Arthritis Enlarged prostate Cough Elevated cholesterol HTN (hypertension) Right shoulder pain Non-rheumatic aortic stenosis Severe aortic stenosis Diverticulosis Umbilical hernia Deformity of left hand Systolic murmur Smoker COPD (chronic obstructive pulmonary disease) Skin cancer Rectus diastasis Surgical History Hx of hand surgery H/O colonoscopy Status post transcatheter aortic valve replacement (TAVR) using bioprosthesis Aortic valve replaced S/P cardiac catheterization History of left hip replacement Family History Father Unknown family medical history Mother No problems noted. Social History Household Members: Significant Other Housing: House Are you a primary healthcare consultant to a significant other at home: No Do you presently have visiting nurse or other home services: No Alcohol intake: never Comment: pt refusing high falls measures except socks and signage Patient Tobacco Use Status: Current everyday Tobacco user Tobacco use type: Cigarette Cigarette Packs Per Day: 0.5 Cigarettes Per Day: 10.0 Years Smoked: 55 e-Cigarette/Vaping Use: Never Used Second Hand Smoke Exposure: No service: No Current occupational status: employed Cognitive needs: No Hearing needs: No Vision needs: Yes Review of Systems Const All systems reviewed & are unremarkable except as noted in HPI and below Eyes Reports no additional complaints ENT Reports nasal congestion (MILD OFF AND ON) Card Denies syncope, Denies rapid heart rate and Denies irregular heart rhythm Resp Reports as per HPI, Reports chest congestion (INTERMITTENTLY) and Reports wheezing GI Details: OF AND ON Musc Reports no additional complaints Skin/Breast Reports system reviewed and no additional complaints, except as documented Neuro Reports no additional complaints and Denies syncope Psych Reports no additional complaints Endo Reports no additional complaints Diego/Lymph Reports no additional complaints Aller/Immun Reports no additional complaints and Reports wheezing Physical Exam Vital Signs: Last Vital Signs Pulse 70 04/18/25 10:58 BP 102/52 L 04/18/25 10:58 Pulse Ox 96 04/18/25 10:58 Oxygen Delivery Method Room Air 04/18/25 10:58 BMI result Body Mass Index 31.3 Const General: healthy appearing, comfortable, no acute distress, alert and awake Orientation/consciousness: patient oriented x3 HEENT Head: Yes normal to inspection General nose exam: No nasal polyps present and No nasal discharge present Face and sinus: Yes sinuses nontender Mouth: oropharynx abnormals (SLIGHT ERYTHEMA OF THE OROPHARYNX IS NOTED, MAY BE DUE TO SMOKING) Throat: Yes posterior oropharynx normal Eyes General: appearance normal, both eyes and all related structures Neck Neck: Yes normal visual inspection, Yes no lymphadenopathy, Yes trachea midline and Yes no JVD Thyroid: Thyroid normal Chest Chest palpation & inspection: normal inspection of the chest and no tenderness Resp Other: .CHEST IS SYMMETRICAL PERCUSSION NOTE RESONANT. BREATH SOUNDS ARE MODERATELY DISTANT WITH PROLONGED EXPIRATORY PHASE. NO WHEEZES RHONCHI OR CREPITATIONS ARE HEARD Cardio Palpation: normal PMI Rate: regular rate Rhythm: regular rhythm Heart sounds: no gallops and no murmurs GI Palpation (GI): Soft to palpation, nontender, No hepatosplenomegaly present and no masses Auscultation: normal bowel sounds Back/Spine/Pelvis Thoracic/Lumbar Spine: thoracic and lumbar spine normal to inspection Skin General skin exam: no rashes or lesions noted Neuro General: patient oriented x3 and no focal motor deficits Cranial nerves: Yes CN's II-XII intact bilaterally Extrem General: Yes normal to inspection, Yes no clubbing, cyanosis or edema and Yes no calf tenderness Psych Appearance: grossly normal and well kempt Speech and movement: Normal speech and movement present Results Reviewed Results Reviewed: CT/CT angio chest PE protocol IMPRESSION: No evidence for acute or chronic pulmonary embolism. VTE: negative Assessment & Plan Assessment & Plan (1) Smoker: Comment: HISTORY OF SMOKING 1 PACK A DAY THROUGHOUT HIS ADULT LIFE, REDUCED TO HALF PACK A DAY SINCE 5 YEARS AGO. Code(s): F17.200 - Nicotine dependence, unspecified, uncomplicated Category: Social Hx Plan: HAD IT LONG TALK WITH HIM AND ENCOURAGED HIM TO QUIT SMOKING. .EDUCATION PACKAGE GIVEN OFFERED NICOTINE PATCH BUT HE SAY IS HE HAS TRIED AND DOES NOT WANT TO USE IT ANYMORE. HE HAS OPTED TO GRADUALLY CUT DOWN THE NUMBER OF CIGARETTES. REFERRED FOR ANNUAL LUNG SCREENING PROGRAM . (2) COPD (chronic obstructive pulmonary disease): Comment: CLINICALLY HE DOES HAVE FEATURES OF CHRONIC OBSTRUCTIVE PULMONARY DISEASE DUE TO COMBINATION OF CHRONIC BRONCHITIS//PULMONARY EMPHYSEMA. Code(s): J44.9 - Chronic obstructive pulmonary disease, unspecified Category: Medical Plan: PULMONARY FUNCTION TEST SCHEDULED TO EVALUATE FOR THE SEVERITY OF COPD. DOES NOT NEED TO USE ANY ACTIVE BRONCHODILATOR INHALERS AT THIS TIME. WILL DECIDE AFTER PFT, HAS THERE HE SHOULD BE ON A MAINTENANCE REGIMEN. PATIENT IS CAUTIONED THAT HE IS A GOOD CANDIDATE FOR RECURRENT ACUTE BRONCHITIS CAUSING AN ACUTE EXACERBATIONS. Orders: Orders CT lung screening Today F17.200 - Nicotine dependence, unspecified, uncomplicated, J44.9 - Chronic obstructive pulmonary disease, unspecified PFT pulmonary function test Today F17.200 - Nicotine dependence, unspecified, uncomplicated, J44.9 - Chronic obstructive pulmonary disease, unspecified Coding Level of Care Code New Pt Level 4 (92843) Diagnoses Smoker F17.200 COPD (chronic obstructive pulmonary disease) J44.9
== END 2025-04-18 11:43 | disposition home or self-care (01) ==
LOC: HO.HPS 10:40
PROVIDERS: PCP Nurse Practitioner Family; Referring Provider Nurse Practitioner Family; Visit Provider Internal Medicine
DX: F17.200 Nicotine dependence, unspecified, uncomplicated (principal); J44.9 Chronic obstructive pulmonary disease, unspecified
CPT/HCPCS: 99204

== ENCOUNTER → 2025-04-18 10:40 | Outpatient (BNVA) | payer MEDICARE, SELFPAY | PROVIDERS: PCP Nurse Practitioner Family; Referring Provider Nurse Practitioner Family; Visit Provider Internal Medicine | DX: J44.89 Other specified chronic obstructive pulmonary disease (principal); F17.210 Nicotine dependence, cigarettes, uncomplicated; Z79.899 Other long term (current) drug therapy | CPT/HCPCS: 99202 ==

== ENCOUNTER 2025-04-27 07:39 | Outpatient (REF) | payer MEDICARE, SELFPAY ==
--- OUTSIDE RECORDS SUMMARY | 2025-03-06 05:30 | XMS_ITS ---
Author Organization [facility] Address [address] [place] [phone] Care Team Providers Care Elementary Reading Specialist Name Role Phone Efraín Lazaro Primary Care Provider Unav ailable Woo Carmona Unavailable [phone] Encounters Encounter Location Date Provider Diagnosis [address] [address] 03/06/2025 Woo Carmona Plan Of Treatment Next Appt Details Provider Name:Allie best, 06/28/2025 09:15:00 AM, [address] [place] [address], [phone], Progress Notes * Ponce BLAIR RDOB:[birth year] (74 yo M)Acc No.[id number]:03/06/2025 Progress Note Patient: Ponce WOMACK Provider: Tigre Carmona DPM :1950 A ge:74 Y S ex:Male Date:03/06/2025 Address:[address] [place], [place] [address] [id number] Pcp:JULIA Spencer Subjective: * Chief Complaints: * [...] 03/06/2025 Generated for Tanna soto/Paul/Shon on: 0 04/27/2025 07:41 AM EDT
--- OUTSIDE RECORDS SUMMARY | 2025-04-27 07:41 | XMS_ITS | Clinical Summary ---
Author Organization [facility] Address [address] [address] Phone Care Team Providers Care Organ Assembler Name Role Phone Pcp, Unknown Primary Care Provider Unavailabl e Allergies No known active allergies Medications tamsulosin (FLOMAX) 0.4 mg Cap Take 0.4 mg by mouth daily. Active finasteride (PROSCAR) 5 mg tablet Take 5 mg by mouth daily. Active umeclidinium (INCRUSE ELLIPTA) 62.5 mcg/actuation inhalation capsule Inhale 62.5 mcg into the lungs as needed. Active nystatin (MYCOSTATIN) 100,000 units/mL suspension Take 500,000 Units by mouth 4 (four) times a day. Active Active Problems Problem Noted Date Diagnosed Date Heart murmur 05/22/2019 Assessment & Plan (05/22/2019 1:38 PM EDT): Murmur could be consistent with both aortic stenosis and mitral regurgitation. The patient is relatively asymptomatic I would favor mitral regurgitation. Would like to check an echocardiogram to evaluate the severity of the disease and clarify the exact nature causing his murmur. Other emphysema 05/22/2019 Assessment & Plan (05/22/2019 1:38 PM EDT): Patient is mildly symptomatic only intermittently. He can continue using his inhaler as needed. I strongly encouraged him to quit smoking and referred him to [facility]. BPH (benign prostatic hyperplasia) 05/22/2019 Assessment & Plan (05/22/2019 1:38 PM EDT): Well-controlled, continue current medication. Pustule 05/22/2019 Assessment & Plan (05/22/2019 11:25 AM EDT): Likely from minor trauma. Does not appear to be infected. Try icing twice a day for about 15 minutes call if not getting better next week. Call sooner if it worsens. Immunizations Immunization Administration Dates Next Due COVID-19 (Pre-08/02) Pfizer Vaccine, mRNA, PF ,01/01/2021 Td (adult),2 Lf Tetanus Toxoid, PF, Adsorbed Family History Medical History Relation Comments Diabetes type I Daughter 1 Relation Status Comments Daughter 1 Alive Daughter 2 Alive Social History Tobacco Use Types Packs/Day Years Used Date Smoking Tobacco: Every Day Cigarettes 0.5 15 Smokeless Tobacco: Never Alcohol Use Standard Drinks/Week Comments Never 0 (1 standard drink = 0.6 oz pur e alcohol) Education Answer Date Recorded Are you interested in more education? Not on [place] e 02/04/2023 Are you concerned about learning? Not on file 02/04/2023 No 02/04/2023 No 02/04/2023 Digital Access Answer Date Recorded No 03/08/2023 No 03/08/2023 No 03/08/2023 Reliable internet access at home? Not on file 03/08/2023 Device with a working camera? Not on file Sex and Gender Information Value Date Recorded Sex Assigned at Not on file Legal Sex Male 7:45 PM EST Gender Identity Not on file Sexual Orientation Not on file Occupation Industry Job Start Date Job End Date [employer] Not on file Not on file Not o n file Last Filed Vital Signs Vital Sign Reading Time Taken Comments Blood Pressure 110/70 05/22/2019 10:47 AM EDT Pulse 60 05/22/2019 10:47 AM EDT Temperature - - Respiratory Rate - - Oxygen Saturation 98% 05/22/2019 10:47 AM EDT Inhaled Oxygen Concentration - - Weight 93 kg (205 lb) 05/22/2019 10:47 AM EDT Height 175.3 cm (5' 9 ) 05/22/2019 10:47 AM EDT Body Mass Index 30.27 05/22/2019 10:47 AM EDT Plan of Treatment Health Maintenance Due Date Last Done Comments LIPID PANEL 1951 SMOKING Hx and SMOKELESS TOBACCO SCREENING 1964 HEPATITIS C SCREENING 1969 PNEUMOCOCCAL VACCINES (50+ years) (1 of 2 - PCV) 1970 COLOGUARD 1996 COLONOSCOPY 1996 COLORECTAL CANCER SCREENING 1996 FIT TEST 1996 FOBT 1996 SIGMOIDOSCOPY 1996 VIRTUAL COLONOSCOPY 1996 ZOSTER VACCINES (1 of 2) 2001 RSV VACCINE (1 - Risk 60-74 years 1-dose series) 2011 Adult Td,Tdap Booster 07/28/2015 07/28/2005 ABDOMINAL AORTIC ANEURYSM (AAA) SCREENING 2016 DEPRESSION SCREENING 05/22/2020 05/22/2019 COVID-19 VACCINE (3 2023-2 5 season) 2024 01/23/2021, 01/01/2021 HEPATITIS A VACCINES Aged Out No long er eligible based on patient's age to complete this topic HIB VACCINES Aged Out No longer eligi ble based on patient's age to complete this topic MENINGOCOCCAL VACCINES (ACWY) Aged Out No longer eligible based on patient's age to complete this topic MENINGOCOCCAL VACCINES (B) Aged Out N o longer eligible based on patient's age to complete this topic Medical Devices Not on file Insurance [facility] MEDICARE SUPPLEMENT MEDICARE PART A & B [facility] MEDICARE SUPPLEMENT MEDICARE PART A & B [facility]IC[facility]PP[facility] Address: [facility] [id number] [place] [phone] MEDICARE PART A & B [facility]IC[facility]PP[facility] Address: [facility] [id number] [place], [place] [id number] MEDICARE PART A & B MEDICARE PART A & B MEDICARE SUPPLEMENT MEDICARE PART A & B Member Subscriber Plan / Payer (Ef fective 2008-Present) Name:Ponce Fitzpatrick R Member ID:[id number] Relation to Subscriber:Self Name:Ponce Fitzpatrick Subscriber ID:[id number] Payer ID:[id number] Group ID:Not on file Type:Medicare Address: [employer] [address] [place] [phone] MEDICARE SUPPLEMENT MEDICARE PART A & B Member Subscriber Plan / Payer (Ef fective 2008-Present) Name:Amari Ponce R Member ID:[id number] Relation to Subscriber:Self Name:Ponce Fitzpatrick Subscriber ID:[id number] Payer ID:[id number] Group ID:Not on file Type:Medicare Address: [employer] [address] [place] [phone] [facility] MEDICARE SUPPLEMENT [facility] Address: [facility] [address] [place] [address] MEDICARE PART A & B [facility] MEDICARE SUPPLEMENT MEDICARE PART A & B Member Subscriber Plan / Payer (Ef fective 2008-Present) Name:Ponce Fitzpatrick Member ID:[id number] Relation to Subscriber:Self Name:Ponce Fitzpatrick Subscriber ID:[id number] Payer ID:[id number] Group ID:Not on file Type:Medicare Address: [employer] [address] [place] [phone] Care Teams Organ Assembler Relationship Specialty Start Date End Date Pcp, Unknown PCP - General 12/25/22 Additional Source Comments The information contained in this document represents components of the legal health record. It is not the complete legal health record.[facility]
--- NOTE | 2025-04-27 13:39 | PFT_ITS ---
Flows: FEV1: 49 % of predicted at 1.46 L FVC: 66 % of predicted at 2.63 L FEV1/FVC: 56 % Bronchodilator response: Absent Volumes: Total lung capacity: 93 % of predicted at 6.41 L Residual volume: 138 % of predicted at 3.53 L Slow vital capacity: 68 % of predicted at 2.88 L Expiratory reserve volume: 45 % of predicted at 0.53 L Diffusion capacity: Mildly decreased, corrects to normal after adjustment for alveolar ventilation. Impression: Severe obstructive ventilatory defect with no bronchodilator response. Increased residual volume suggests air trapping. Decreased expiratory reserve volume suggests extrathoracic restriction likely secondary to abdominal obesity. Decreased diffusion capacity suggests emphysema. MTDD
== END 2025-04-27 07:40 | disposition home or self-care (01) ==
LOC: HO.RESP 07:39
PROVIDERS: PCP Nurse Practitioner Family; Visit Provider Internal Medicine
DX: J44.9 Chronic obstructive pulmonary disease, unspecified (principal); F17.200 Nicotine dependence, unspecified, uncomplicated
CPT/HCPCS: 94010; 94640; 94727; 94729

== ENCOUNTER → 2025-04-27 13:39 | Outpatient (BNV) | payer MEDICARE, SELFPAY | PROVIDERS: PCP Nurse Practitioner Family; Visit Provider Internal Medicine Pulmonary Disease | DX: J44.9 Chronic obstructive pulmonary disease, unspecified (principal) | CPT/HCPCS: 94060; 94727; 94729 ==

== ENCOUNTER 2025-05-03 06:45 | Outpatient (REF) | payer MEDICARE, SELFPAY ==
--- OUTSIDE RECORDS SUMMARY | 2025-03-06 05:30 | XMS_ITS ---
Author Organization [facility] Address [address] [place] [phone] Care Team Providers Care Material Assistant Name Role Phone Efraín Lazaro Primary Care Provider Unav ailable Woo Carmona Unavailable [phone] Encounters Encounter Location Date Provider Diagnosis [address] [address] 03/06/2025 Woo Carmona Plan Of Treatment Next Appt Details Provider Name:Allie best, 06/28/2025 09:15:00 AM, [address] [place] [address], [phone], Progress Notes * Ponce BLAIR RDOB:[birth year] (74 yo M)Acc No.[id number]:03/06/2025 Progress Note Patient: Ponce WOMACK Provider: Tigre Carmona DPM :1950 A ge:74 Y S ex:Male Date:03/06/2025 Address:[address] [place], [place] [address] [id number] Pcp:JULIA Spencer Subjective: * Chief Complaints: * [...] 03/06/2025 Generated for Tanna soto/Paul/Shon on: 0 05/03/2025 06:47 AM EDT
--- NOTE | ~2025-05-03 | XR_ITS ---
EXAMINATION: XR PELVIS CLINICAL INFORMATION: Z96.643 - Presence of artificial hip joint, bilateral COMPARISON: October 25, 2023 TECHNIQUE: AP view of the pelvis. FINDINGS: No acute cortical disruption, bony pelvis. Degenerative changes in the symphysis pubis. Spondylosis, L4-5 and L5-S1. Metallic hip prosthesis with an acetabular and femoral components both femurs. No gross malalignment. There is/in the proximal diaphysis/inferior to the intertrochanteric region and right femur. The femoral component of the left hip prosthesis extends to the mid diaphysis of the left femur. Vascular calcifications. XR/XR pelvis 1-2V IMPRESSION: No acute fracture. Electronically signed by: Lonny Knight MD 05/03/2025 08:03 AM EDT
--- OUTSIDE RECORDS SUMMARY | 2025-05-03 06:47 | XMS_ITS | Clinical Summary ---
Author Organization [facility] Address [address] [address] Phone Care Team Providers Care Screen Printing Stencil Preparer Name Role Phone Pcp, Unknown Primary Care [...] topic Medical Devices Not on file Insurance [facility] MEDICARE SUPPLEMENT MEDICARE PART A & B [facility] MEDICARE SUPPLEMENT MEDICARE PART A & B [facility] MEDICARE SUPPLEMENT Member Subscriber Plan / Payer (Ef fective 2008-Present) Name:Ponce Fitzpatrick Relation to Subscriber:Self Name:Ponce Fitzpatrick Payer ID:[id number] (NAIC) Group ID:Not on file Type:[facility] Address: [facility] [id number] [place] [phone] MEDICARE PART A & B [facility] MEDICARE SUPPLEMENT MEDICARE PART A & B MEDICARE PART A & B MEDICARE SUPPLEMENT MEDICARE PART A & B Member Subscriber Plan / Payer (Ef fective 2008-Present) Name:Ponce Fitzpatrick R Member ID:[id number] Relation to Subscriber:Self Name:Ponce Fitzpatrick Subscriber ID:[id number] Payer ID:[id number] Group ID:Not on file Type:Medicare Address: [employer] [address] [place] [phone] MEDICARE SUPPLEMENT MEDICARE PART A & B Member Subscriber Plan / Payer (Ef fective 2008-Present) Name:Amari Ponce R Member ID:[id number] Relation to Subscriber:Self Name:Ponce Fitzpatrick Subscriber ID:[id number] Payer ID:[id number] Group ID:Not on file Type:Medicare Address: [employer] [address] [place] [phone] [facility] MEDICARE SUPPLEMENT MEDICARE PART A & B [facility] MEDICARE SUPPLEMENT MEDICARE PART A & B Member Subscriber Plan / Payer (Ef fective 2008-Present) Name:Ponce Fitzpatrick Member ID:[id number] Relation to Subscriber:Self Name:Ponce Fitzpatrick Subscriber ID:[id number] Payer ID:[id number] Group ID:Not on file Type:Medicare Address: [employer] [address] [place] [phone] Care Teams Screen Printing Stencil Preparer Relationship Specialty Start Date End Date Pcp, Unknown PCP - General 12/25/22 Additional Source Comments The information contained in this document represents components of the legal health record. It is not the complete legal health record.[facility]
== END 2025-05-03 06:46 | disposition home or self-care (01) ==
LOC: HO.HOSX 06:45
PROVIDERS: Visit Provider Orthopaedic Surgery
DX: M48.061 Spinal stenosis, lumbar region without neurogenic claudication (principal); M54.50 Low back pain, unspecified; E66.9 Obesity, unspecified; Z96.643 Presence of artificial hip joint, bilateral; Z79.899 Other long term (current) drug therapy
CPT/HCPCS: 72170; 99212

== ENCOUNTER 2025-05-03 07:46 | Outpatient (AMB) | payer MEDICARE, SELFPAY ==
--- NOTE | 2025-05-03 08:00 | A.OFFVIS_ITS ---
Intake Visit Reasons: OV-Earl JOYCE/Right JOYCE 10/25/23 Intake Note: Ponce is a 74 year old male who presents with complaints of progressively worsening low back pain which radiates into both of his legs. He also has intermittent discomfort along the lateral aspects of both of his hips after undergoing bilateral total hip replacement surgeries. He denies any fevers or chills. The patient states that he has been seen in the neurosurgery department. Surgery was offered to him. He is still deciding whether or not he wants to undergo surgery. He also reports intermittent weakness in his legs. Allergies apixaban (From Eliquis) Allergy (Intermediate, Verified 05/03/25 08:05) Rash formaldehyde (FORMALDEHYDE) Allergy (Unknown, Verified 05/03/25 08:05) HIVES lanolin Allergy (Verified 05/03/25 08:05) Hives propylene glycol Allergy (Verified 05/03/25 08:05) Rash a steroid cream; he is not dimitry Allergy (Unknown, Uncoded 04/18/25 11:55) Unknown sandi donuts and subway Allergy (Unknown, Uncoded 04/18/25 11:55) Unknown Medication List - Last Reconciled 05/03/25 by Stan Pham MD acetaminophen 650 mg PO BID aspirin (Adult Aspirin Regimen) 81 mg PO DAILY atorvastatin 40 mg PO QPM [bedside commode As directed] betamethasone dipropionate 0.05% topical cane As directed cetirizine 10 mg PO BID cholecalciferol (vitamin D3) 125 mcg PO DAILY finasteride 5 mg PO BEDTIME gabapentin 300 mg PO TID 30 days losartan 100 mg PO DAILY nystatin 1 appl topical DAILY PRN [Raised toliet seat As directed] tamsulosin 0.4 mg PO BEDTIME walker Folding front wheeled walker [facility] Medical History (Updated 05/03/25 @ 08:29 by Stan Pham MD) Coronary artery disease Paroxysmal atrial fibrillation Non-rheumatic aortic stenosis Status post transcatheter aortic valve replacement (TAVR) using bioprosthesis Essential hypertension Dyslipidemia Systolic murmur COPD (chronic obstructive pulmonary disease) Cough Nicotine dependence, cigarettes, uncomplicated Erectile dysfunction Enlarged prostate Dermatochalasis of both eyelids Acute hypoxic respiratory failure Arthritis Right shoulder pain Deformity of left hand Diverticulosis Rectus diastasis Umbilical hernia History of skin cancer Surgical History (Updated 05/03/25 @ 06:45 by Stan Pham MD) History of transcatheter aortic valve replacement (TAVR) History of cardiac cath History of left hip replacement History of right hip replacement History of hand surgery History of Mohs micrographic surgery for skin cancer History of appendectomy History of colonoscopy Family History (Updated 04/19/25 @ 15:46 by Mariluz Robles PA-C) Father Heart failure Mother Breast cancer Social History Household Members: Significant Other Housing: House Are you a primary human services care specialist to a significant other at home: No Do you presently have visiting nurse or other home services: No Alcohol intake: never Comment: pt refusing high falls measures except socks and signage Patient Tobacco Use Status: Current everyday Tobacco user Tobacco use type: Cigarette Cigarette Packs Per Day: 0.5 Cigarettes Per Day: 10.0 Years Smoked: 55 e-Cigarette/Vaping Use: Never Used Second Hand Smoke Exposure: No service: No Current occupational status: employed Cognitive needs: No Hearing needs: No Vision needs: Yes Physical Exam Const Other: Well-nourished well-developed very friendly male awake alert and oriented x3 in no acute distress Extrem Other: Bilateral hip examination shows that the surgical incisions are well healed, no erythema, minimal discomfort with range of motion, minimal tenderness over his bursa Results Reviewed Results Reviewed: X-rays of the patient's bilateral hips taken today show total hip arthroplasties in good position with no signs of loosening, no acute bony abnormalities Assessment & Plan Assessment & Plan (1) History of bilateral total hip arthroplasty: Code(s): Z96.643 - Presence of artificial hip joint, bilateral Category: Medical Plan Mr. Fitzpatrick continues to do fairly well after undergoing bilateral total hip replacement surgeries. He does know to take antibiotics before any dental work. The patient does have progressively worsening low back pain which radiates into both of his legs due to lumbar stenosis. The patient will follow up with Neurosurgery to further discuss his surgical options. As per his request, I did refer him to the weight loss program here at [facility]. He will contact me prior to his annual follow-up appointment should any questions or concerns arise. Feel free to call me at any time should questions regarding his orthopedic management arise. I spent 21 minutes in reviewing the patient's records and imaging studies, seeing the patient and documenting in the medical record. Orders: Orders XR pelvis 1-2V Today Z96.643 - Presence of artificial hip joint, bilateral Referrals Medical Weight Management Referral E66.9 - Obesity, unspecified Coding Level of Care Code Est Pt Level 3 (24950) Complex EM visit Add On G2211 Diagnoses History of bilateral total hip arthroplasty Z96.643
== END 2025-05-03 08:27 | disposition home or self-care (01) ==
LOC: HO.HOS 07:47
PROVIDERS: PCP Nurse Practitioner Family; Visit Provider Orthopaedic Surgery
DX: Z47.89 Encounter for other orthopedic aftercare (principal); Z96.643 Presence of artificial hip joint, bilateral; M54.50 Low back pain, unspecified
CPT/HCPCS: 99213; G2211

== ENCOUNTER → 2025-05-03 07:52 | Outpatient (BNV) | payer MEDICARE, SELFPAY | PROVIDERS: Visit Provider Radiology Diagnostic Radiology | DX: M47.816 Spondylosis without myelopathy or radiculopathy, lumbar region (principal) | CPT/HCPCS: 72170 ==

== ENCOUNTER 2025-05-14 12:49 | Outpatient (REF) | payer MEDICARE, SELFPAY ==
--- NOTE | ~2025-05-14 | US_ITS ---
CLINICAL HISTORY: I25.10 - Atherosclerotic heart disease of [place] coronary artery without... US Bilateral Carotid Duplex Comparison: None provided Findings: Heavy plaque within the right carotid bulb and within the proximal right internal carotid artery. Mild plaque within the left carotid bulb and proximal internal carotid artery. Color doppler and spectral tracings normal. Peak systolic velocities: Right CCA: 99.8 cm/s. Right ICA: 169 cm/s. ICA/CCA ratio: Normal. Right ECA: Unremarkable. Right vertebral artery flow antegrade. Left CCA: 92.7 cm/s. Left ICA: 120 cm/s. ICA/CCA ratio: Normal. Left ECA: Elevated velocities at 236 cm/sec suggesting a stenosis. Left vertebral artery flow antegrade. IMPRESSION: Findings appear consistent with 50-79% narrowing in the mid and distal right internal carotid artery. Heavy calcified plaque at the bulb and within the proximal internal carotid artery. Findings appear consistent with a 0-49% narrowing within the left internal carotid artery. Elevated velocities at 236 cm/sec suggest stenosis in the left external carotid artery. This document has been electronically signed by: Charla Horan MD on 05/15/2025 09:02:43
== END 2025-05-14 12:50 | disposition home or self-care (01) ==
LOC: HO.HMGCX 12:49
PROVIDERS: PCP Nurse Practitioner Family; Visit Provider Nurse Practitioner Family
DX: I25.10 Atherosclerotic heart disease of native coronary artery without angina pectoris (principal); I65.23 Occlusion and stenosis of bilateral carotid arteries
CPT/HCPCS: 93880

== ENCOUNTER → 2025-05-14 12:57 | Outpatient (BNV) | payer MEDICARE, SELFPAY | PROVIDERS: PCP Nurse Practitioner Family; Visit Provider Radiology Diagnostic Radiology | DX: I65.21 Occlusion and stenosis of right carotid artery (principal) | CPT/HCPCS: 93880 ==

== ENCOUNTER 2025-05-23 09:15 | Outpatient (AMB) | payer MEDICARE, SELFPAY ==
--- OUTSIDE RECORDS SUMMARY | 2025-03-06 05:30 | XMS_ITS ---
Author Organization [facility] Address [address] [place] [address] Care Team Providers Care Flour Blender Name Role Phone Efraín Lazaro Primary Care Provider Unav ailable Woo Carmona Unavailable [phone] Encounters Encounter Location Date Provider Diagnosis [address] [address] 03/06/2025 Woo Carmona Plan Of Treatment Next Appt Details Provider Name:Allie best, 06/28/2025 09:15:00 AM, [address] [place] [address], [phone], Progress Notes * Ponce BLAIR RDOB:[birth year] (75 yo M)Acc No.[id number]:03/06/2025 Progress Note Patient: Ponce WOAMCK Provider: Tigre Carmona DPM :1950 A ge:74 Y S ex:Male Date:03/06/2025 Address:[address] [place], [place] [address] [id number] Pcp:JULIA Spencer Subjective: * Chief Complaints: * [...] 03/06/2025 Generated for Tanna soto/Paul/Shon on: 0 05/23/2025 09:38 AM EDT
[2025-05-23 09:24] VITALS: BP 118/52; PULSE 68; O2SAT 95; BMI 30.9
--- NOTE | 2025-05-23 09:24 | MHC.OFFVIS ---
Vital Signs 05/23/25 09:24 Height 5 ft 9 in Weight 209 lb BMI 30.9 BP 118/52 L Blood Pressure Location Lt brachial Position Sitting Pulse 68 Pulse Source Pulse Oximeter Pulse Oximetry (%) 95 Oxygen Delivery Method Room Air Intake Visit Reasons: Bronchitis Intake Note: pt is here for follow up and states his breathing is the same as previous visit. 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 Smokes 10 cigarettes a day . With previous history of smoking 1 pack a day for more than 50 years. Has intermittent bouts of cough, And's once in a while some wheezing. Has tried to use Incruse Ellipta which did not make any difference, the only thing he uses is albuterol p.r.n. Had pulmonary function test, and he need to go over the results. [facility] Medical History Coronary artery disease Paroxysmal atrial fibrillation Non-rheumatic aortic stenosis Status post transcatheter aortic valve replacement (TAVR) using bioprosthesis Essential hypertension Dyslipidemia Systolic murmur COPD (chronic obstructive pulmonary disease) Cough Nicotine dependence, cigarettes, uncomplicated Erectile dysfunction Enlarged prostate Dermatochalasis of both eyelids Acute hypoxic respiratory failure Arthritis Right shoulder pain Deformity of left hand Diverticulosis Rectus diastasis Umbilical hernia History of skin cancer Surgical History History of transcatheter aortic valve replacement (TAVR) History of cardiac cath History of left hip replacement History of right hip replacement History of hand surgery History of Aftab micrographic surgery for skin cancer History of appendectomy History of colonoscopy Family History Father Heart failure Mother Breast cancer Social History Household Members: Significant Other Housing: House Are you a primary career professional to a significant other at home: No Do you presently have visiting nurse or other home services: No Alcohol intake: never Comment: pt refusing high falls measures except socks and signage Patient Tobacco Use Status: Current everyday Tobacco user Tobacco use type: Cigarette Cigarette Packs Per Day: 0.5 Cigarettes Per Day: 10.0 Years Smoked: 55 e-Cigarette/Vaping Use: Never Used Second Hand Smoke Exposure: No service: No Current occupational status: employed Cognitive needs: No Hearing needs: No Vision needs: Yes Review of Systems Const All systems reviewed & are unremarkable except as noted in HPI and below Eyes Reports no additional complaints ENT Reports nasal congestion (MILD OFF AND ON) Card Denies syncope, Denies rapid heart rate and Denies irregular heart rhythm Resp Reports as per HPI, Reports chest congestion (INTERMITTENTLY) and Reports wheezing GI Details: OF AND ON Musc Reports no additional complaints Skin/Breast Reports system reviewed and no additional complaints, except as documented Neuro Reports no additional complaints and Denies syncope Psych Reports no additional complaints Endo Reports no additional complaints Diego/Lymph Reports no additional complaints Aller/Immun Reports no additional complaints and Reports wheezing Physical Exam Vital Signs: Last Vital Signs Pulse 68 05/23/25 09:24 BP 118/52 L 05/23/25 09:24 Pulse Ox 95 05/23/25 09:24 Oxygen Delivery Method Room Air 05/23/25 09:24 BMI result Body Mass Index 30.9 Const General: healthy appearing, comfortable, no acute distress, alert and awake Orientation/consciousness: patient oriented x3 HEENT Head: Yes normal to inspection General nose exam: No nasal polyps present and No nasal discharge present Face and sinus: Yes sinuses nontender Mouth: oropharynx abnormals (SLIGHT ERYTHEMA OF THE OROPHARYNX IS NOTED, MAY BE DUE TO SMOKING) Throat: Yes posterior oropharynx normal Eyes General: appearance normal, both eyes and all related structures Neck Neck: Yes normal visual inspection, Yes no lymphadenopathy, Yes trachea midline and Yes no JVD Thyroid: Thyroid normal Chest Chest palpation & inspection: normal inspection of the chest and no tenderness Resp Other: .CHEST IS SYMMETRICAL PERCUSSION NOTE RESONANT. BREATH SOUNDS ARE MODERATELY DISTANT WITH PROLONGED EXPIRATORY PHASE. NO WHEEZES RHONCHI OR CREPITATIONS ARE HEARD Cardio Palpation: normal PMI Rate: regular rate Rhythm: regular rhythm Heart sounds: no gallops and no murmurs GI Palpation (GI): Soft to palpation, nontender, No hepatosplenomegaly present and no masses Auscultation: normal bowel sounds Back/Spine/Pelvis Thoracic/Lumbar Spine: thoracic and lumbar spine normal to inspection Skin General skin exam: no rashes or lesions noted Neuro General: patient oriented x3 and no focal motor deficits Cranial nerves: Yes CN's II-XII intact bilaterally Extrem General: Yes normal to inspection, Yes no clubbing, cyanosis or edema and Yes no calf tenderness Psych Appearance: grossly normal and well kempt Speech and movement: Normal speech and movement present Results Reviewed Results Reviewed: PULMONARY FUNCTION TEST RESULTS ARE REVIEWED. HE HAS SEVERE OBSTRUCTIVE AIRWAY DISORDER BUT WITHOUT ANY IMPROVEMENT WITH BRONCHODILATOR. TLC AND DLCO PRESERVED Assessment & Plan Assessment & Plan (1) COPD (chronic obstructive pulmonary disease): Comment: CLINICALLY WELL ON BASIS OF PULMONARY FUNCTION TEST HE HAS SEVERE OBSTRUCTIVE AIRWAY DISORDER. HE HAS ONLY MINIMAL SYMPTOMS AT THIS TIME. HE IS NOT EXPECTED TO HAVE MUCH IMPROVEMENT WITH THE USE OF LONG-ACTING BRONCHODILATORS OR INHALED STEROIDS. Code(s): J44.9 - Chronic obstructive pulmonary disease, unspecified Category: Medical Plan: NEEDS TO PROTECT HIMSELF FROM ANY INHALATIONS OF DUST SMOKE OR OTHER POLLUTANTS. 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 ADVISED TO PROTECT HIMSELF AGAINST ANY INFECTIONS, GET FLU VACCINE YEARLY. USE ALBUTEROL HFA 2 PUFFS Q 6 HOURS P.R.N. (2) Nicotine dependence, cigarettes, uncomplicated: Comment: (1ppd x 53yrs, 1/2ppd x 5yrs) Code(s): F17.210 - Nicotine dependence, cigarettes, uncomplicated Category: Medical Plan: TALKED TO HIM ABOUT HIS SMOKING AND RISKS FROM THE CONTINUED SMOKING EVEN THOUGH HE HAS CUT IT DOWN TO HALF PACK A DAY. HE SHOULD STAY IN ANNUAL LUNG SCREENING PROGRAM. Medications: New albuterol sulfate 90 mcg/actuation (Ventolin HFA) 2 puffs inhalation Q4-6H PRN 8.5 grams 3RF shortness of breath or wheezing 30 days Coding Level of Care Code Est Pt Level 3 (35725) Diagnoses COPD (chronic obstructive pulmonary disease) J44.9 Nicotine dependence, cigarettes, uncomplicated F17.210
== END 2025-05-23 09:42 | disposition home or self-care (01) ==
LOC: HO.HPS 09:16
PROVIDERS: PCP Nurse Practitioner Family; Visit Provider Internal Medicine
DX: J44.9 Chronic obstructive pulmonary disease, unspecified (principal); F17.210 Nicotine dependence, cigarettes, uncomplicated
CPT/HCPCS: 99213

== ENCOUNTER → 2025-05-23 09:15 | Outpatient (BNVA) | payer MEDICARE, SELFPAY | PROVIDERS: PCP Nurse Practitioner Family; Visit Provider Internal Medicine | DX: J44.9 Chronic obstructive pulmonary disease, unspecified (principal); F17.210 Nicotine dependence, cigarettes, uncomplicated | CPT/HCPCS: 99212 ==

== ENCOUNTER 2025-06-25 10:14 | Outpatient (AMB) | payer MEDICARE, SELFPAY ==
--- NOTE | 2025-06-25 10:18 | MHC.OFFVIS ---
Vital Signs 06/25/25 10:28 06/25/25 10:38 Height 5 ft 9 in 5 ft 9 in Weight 209 lb BMI 30.9 BP 143/66 H Blood Pressure Location Lt brachial Position Sitting Pulse 66 Intake Visit Reasons: Epidermal cyst Intake Note: Patient is seen in office for evaluation and treatment of an epidermal cyst. 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 Required: No Allergies apixaban (From Eliquis) Allergy (Intermediate, Verified 06/25/25 10:30) Rash formaldehyde (FORMALDEHYDE) Allergy (Unknown, Verified 06/25/25 10:30) HIVES lanolin Allergy (Verified 06/25/25 10:30) Hives propylene glycol Allergy (Verified 06/25/25 10:30) Rash a steroid cream; he is not dimitry Allergy (Unknown, Uncoded 06/25/25 10:30) Unknown [employer] Allergy (Unknown, Uncoded 06/25/25 10:30) Unknown Medication List - Last Reconciled 06/25/25 by Bairon Stallings RN acetaminophen 650 mg PO BID albuterol sulfate 90 mcg/actuation (Ventolin HFA) 2 puffs inhalation Q4-6H PRN 30 days amlodipine 10 mg PO DAILY aspirin (Adult Aspirin Regimen) 81 mg PO DAILY atorvastatin 40 mg PO QPM azithromycin For 250 mg dose pack: take 500 mg today (day 1), then 250 mg for 4 days (days 2-5) PO [bedside commode As directed] betamethasone dipropionate 0.05% topical cane As directed cetirizine 10 mg PO BID cholecalciferol (vitamin D3) 125 mcg PO DAILY finasteride 5 mg PO BEDTIME gabapentin 300 mg PO TID 30 days losartan 100 mg PO DAILY nystatin 1 appl topical DAILY PRN prednisone 20 mg PO BID 5 days [Raised toliet seat As directed] tamsulosin 0.4 mg PO BEDTIME walker Folding front wheeled walker HPI Comments Details: 75-year-old male patient presenting for evaluation of a epidermal inclusion cyst of the midback. This has been present for many years and has gradually increased in size. He reports a previous cyst in the back of his neck that was excised many years ago. This current cyst has never become infected and he denies any discharge or pain from the site. He is requesting excision of this lesion. [facility] Medical History Coronary artery disease Paroxysmal atrial fibrillation Non-rheumatic aortic stenosis Status post transcatheter aortic valve replacement (TAVR) using bioprosthesis Essential hypertension Dyslipidemia Systolic murmur COPD (chronic obstructive pulmonary disease) Cough Nicotine dependence, cigarettes, uncomplicated Erectile dysfunction Enlarged prostate Dermatochalasis of both eyelids Acute hypoxic respiratory failure Arthritis Right shoulder pain Deformity of left hand Diverticulosis Rectus diastasis Umbilical hernia History of skin cancer Surgical History History of transcatheter aortic valve replacement (TAVR) History of cardiac cath History of left hip replacement History of right hip replacement History of hand surgery History of Mohs micrographic surgery for skin cancer History of appendectomy History of colonoscopy Family History Father Heart failure Mother Breast cancer Social History Household Members: Significant Other Housing: House Are you a primary daycare manager to a significant other at home: No Do you presently have visiting nurse or other home services: No Alcohol intake: never Comment: pt refusing high falls measures except socks and signage Patient Tobacco Use Status: Current everyday Tobacco user Tobacco use type: Cigarette Cigarette Packs Per Day: 0.5 Cigarettes Per Day: 10.0 Years Smoked: 55 e-Cigarette/Vaping Use: Never Used Second Hand Smoke Exposure: No service: No Current occupational status: employed Cognitive needs: No Hearing needs: No Vision needs: Yes Review of Systems Const All systems reviewed & are unremarkable except as noted in HPI and below Physical Exam Vital Signs: Last Vital Signs Pulse 66 06/25/25 10:28 BP 143/66 H 06/25/25 10:28 BMI result Body Mass Index 30.9 Const General: cooperative and no acute distress Nutritional Appearance: well nourished Orientation/consciousness: patient oriented x3 Limitations: no limitations HEENT Head: Yes normocephalic and Yes atraumatic Ears: hearing grossly normal bilaterally Resp Effort & Inspection: normal respiratory effort, no audible wheezes, no cough and no respiratory distress Cardio Jugular venous distension: no JVD GI Inspection: Yes normal to inspection Back/Spine/Pelvis Back/spine/pelvis image:  1. 4 cm epidermal inclusion cyst with a central punctum, nontender to palpation but slightly fluctuant to palpation. Skin Other: Warm, dry, no rash, skin lesion as noted above Neuro General: patient oriented x3 Extrem General: Yes no clubbing, cyanosis or edema Assessment & Plan Assessment & Plan (1) Epidermoid cyst of skin of back: Code(s): L72.0 - Epidermal cyst Category: Medical Plan 75-year-old male patient presenting with a slowly enlarging epidermal inclusion cyst of the midback. On examination he is noted to have a 4 cm epidermal inclusion cyst which is nontender but slightly fluctuant to palpation. There was no overlying erythema to indicate an abscess. I recommended an excision under local anesthesia as an office based procedure and after discussion of the procedure, risks and alternatives, he consents to the surgery. Coding Level of Care Code New Pt Level 4 (77572) Diagnoses Epidermoid cyst of skin of back L72.0
[2025-06-25 10:28] VITALS: BP 143/66; PULSE 66; BMI 30.9
--- OUTSIDE RECORDS SUMMARY | 2025-06-25 12:54 | XMS_ITS | Clinical Summary ---
Author Organization [facility] Address [address] [address] Phone Care Team Providers Care Historiography Professor Name Role Phone Pcp, Unknown Primary Care [...] DEPRESSION SCREENING 05/22/2020 05/22/2019 COVID-19 VACCINE (3 - 2023-2 5 season) 2024 01/23/2021, 01/01/2021 INFLUENZA VACCINE (#1) 2025 HEPATITIS A VACCINES Aged Out No long [...] topic Medical Devices Not on file Insurance [facility] MEDICARE SUPPLEMENT MEDICARE PART A & B [facility] MEDICARE SUPPLEMENT MEDICARE PART A & B [facility] MEDICARE SUPPLEMENT MEDICARE PART A & B [facility] MEDICARE SUPPLEMENT MEDICARE PART A & B MEDICARE SUPPLEMENT MEDICARE PART A & [place] [address] [place] [address] MEDICARE SUPPLEMENT MEDICARE PART A & B [facility] MEDICARE SUPPLEMENT MEDICARE PART A & B [facility] MEDICARE SUPPLEMENT MEDICARE PART A & B [facility] MEDICARE SUPPLEMENT MEDICARE PART A & B Care Teams Historiography Professor Relationship Specialty Start Date End Date Pcp, Unknown PCP - General 12/25/22 Additional Source Comments The information contained in this document represents components of the legal health record. It is not the complete legal health record.[facility]
== END 2025-06-25 10:45 | disposition home or self-care (01) ==
LOC: HO.HGS 10:14
PROVIDERS: PCP Nurse Practitioner Family; Visit Provider Surgery
DX: L72.0 Epidermal cyst (principal)
CPT/HCPCS: 99204

== ENCOUNTER → 2025-06-25 10:14 | Outpatient (BNVA) | payer MEDICARE, SELFPAY | PROVIDERS: PCP Nurse Practitioner Family; Visit Provider Surgery | DX: L72.0 Epidermal cyst (principal) | CPT/HCPCS: 99202 ==

== ENCOUNTER 2025-06-28 06:33 | Outpatient (REF) | payer MEDICARE, SELFPAY ==
--- OUTSIDE RECORDS SUMMARY | 2025-03-06 05:30 | XMS_ITS ---
Author Organization [facility] Address [address] [place] [address] Care Team Providers Care Daycare Manager Name Role Phone Efraín Lazaro Primary Care Provider Unav ailable Woo Carmona Unavailable [phone] Encounters Encounter Location Date Provider Diagnosis [address] [address] 03/06/2025 Woo Carmona Plan Of Treatment Next Appt Details Provider Name:Allie best, 06/28/2025 09:15:00 AM, [address] [place] [address], [phone], Progress Notes * Ponce BLAIR RDOB:[birth year] (75 yo M)Acc No.[id number]:03/06/2025 Progress Note Patient: Ponce WOMACK Provider: Tigre Carmona DPM :1950 A ge:74 Y S ex:Male Date:03/06/2025 Address:[address] [place], [place] [id number] Pcp:JULIA Spencer Subjective: * Chief Complaints: * * Medical History: Objective: * Vitals: Assessment: Plan: * Treatment: * Images: * The named appointment provid er may or may not be the originator of this progress note, and it is not deemed complete until electronically signed by the appointment provider. Sign off status: Pending * Provider: Tigre Carmona DPM Date: 0 03/06/2025 Generated for Tanna soto/Paul/Shon on: 0 06/28/2025 06:37 AM EDT
--- OUTSIDE RECORDS SUMMARY | 2025-06-08 10:00 | XMS_ITS ---
Author Organization [facility] Address [address] [place] [id number] Care Team Providers Care Emergency Medcl Emt Name Role Phone Efraín Lazaro Primary Care Provider Unav ailable Woo Carmona Unavailable [phone] Encounters Encounter Location Date Provider Diagnosis [address] [address] 06/08/2025 Woo Carmona Plan Of Treatment Next Appt Details Provider Name:Allie best, 06/28/2025 09:15:00 AM, [address] [place] [address], [phone], Progress Notes * Ponce BLAIR RDOB:[birth year] (75 yo M)Acc No.[id number]:06/08/2025 Progress Note Patient: Ponce WOMACK Provider: Tigre Carmona DPM :1950 A ge:75 Y S ex:Male Date:06/08/2025 Address:[address] [place], [place] [id number] Pcp:JULIA Spencer Subjective: * Chief Complaints: * * Medical History: Objective: * Vitals: Assessment: Plan: * Treatment: * Images: * The named appointment provid er may or may not be the originator of this progress note, and it is not deemed complete until electronically signed by the appointment provider. Sign off status: Pending * Provider: Tigre Carmona DPM Date: 0 06/08/2025 Generated for Tanna soto/Paul/Shon on: 0 06/28/2025 06:37 AM EDT
--- OUTSIDE RECORDS SUMMARY | 2025-06-28 06:37 | XMS_ITS | Clinical Summary ---
Author Organization [facility] Address [address] [address] Phone Care Team Providers Care Pmo Consultant Name Role Phone Pcp, Unknown Primary Care [...] topic Medical Devices Not on file Insurance [facility] MEDICARE SUPPLEMENT MEDICARE PART A & B [facility] MEDICARE SUPPLEMENT MEDICARE PART A & B [facility] MEDICARE SUPPLEMENT MEDICARE PART A & B [facility] MEDICARE SUPPLEMENT MEDICARE PART A & B MEDICARE SUPPLEMENT Member Subscriber Plan / Payer (Ef fective 2008-Present) Name:Ponce Fitzpatrick Amanda Relation to Subscriber:Self Name:Ponce Fitzpatrick Amanda Payer ID:[id number] (NAIC) Group ID:Not on file Type:X5 GroupO Address: [facility] [address] [place] [phone] MEDICARE PART A [place] [address] [address] [place] [address] MEDICARE SUPPLEMENT MEDICARE PART A & B [facility] MEDICARE SUPPLEMENT MEDICARE PART A & B [facility] MEDICARE SUPPLEMENT MEDICARE PART A & B [facility] MEDICARE SUPPLEMENT MEDICARE PART A & B Care Teams Pmo Consultant Relationship Specialty Start Date End Date Pcp, Unknown PCP - General 12/25/22 Additional Source Comments The information contained in this document represents components of the legal health record. It is not the complete legal health record.[facility]
--- OUTSIDE RECORDS SUMMARY | 2025-06-28 06:37 | XMS_ITS | Patient Health Record ---
[facility] Address [address] [facility] [place] [address] Care Team Providers Care Patient Attendant Name Role Phone Efraín Lazaro Primary Care Provider Unav ailable Woo Carmona Unavailable [phone] Allie Ziegler Unavailable [phone] Allergies Allergen (clinical drug ingredient) Drug/Non Drug Allergy documented on EMR Reaction Allergy Type Onset Date Status Formaldehyde rash Drug Allergy Acti ve Reason For Referral No Information Medications Medication SIG (Take, Route, Frequency, Duration) Notes Start Date End Date Status Gabapentin Active Betamethasone Dipropionate Active Finasteride 5 MG Orally Once a day Active Nystop Active Tamsulosin HCl 0.4 MG Orally Once a day Active Compression Stockings 20-30mm Hg 1 pair wear daily; Duration: 30 days Active Nystatin Active Atorvastatin Calcium Active amLODIPine Benzoate Active Immunizations Vaccine Route Administration Date Status [...] Status W/U Status Risk Notes Problem Onychomycosis (732330137) Onychomycosis (B35.1) Active confirmed Vital Signs Blood pressure diastolic 70 mm Hg 03/15/2025 Height 5 ft 9 in in 03/15/2025 Blood pressure systolic 120 mm Hg 03/15/2025 Weight 220 lbs 03/15/2025 BMI 32.48 kg/m2 03/15/2025 Procedures Procedure Date Ordered Date Performed Result Body Sit e 84531-UGBXGDG NAIL, 6 OR MORE 08/29/2024 N/A 12541-YTBTEYM NAIL, 6 OR MORE 11/28/2024 N/A 36488-KDSVXAO NAIL, 6 OR MORE 03/15/2025 N/A Encounters Encounter Location Date Provider Diagnosis [address] [address] 08/29/2024 Woo Carmona Tinea unguium B35.1 ; Pain in right toe(s) M79.674 ; Pain in left toe(s) M79.675 and Edema, lower extremity R60.[address] [address] 11/28/2024 Woo Carmona Pain in right toe(s) M79.674 ; Onychomycosis B35.1 and Pain in left toe(s) M79.[address] [address] 03/15/2025 Allie Ziegler Pain in right toe(s) M79.674 ; Onychomycosis B35.1 and Pain in left toe(s) M79.[address] [address] 03/06/2025 Woo Carmona Assessments Encounter Date Diagnosis (ICD Code) Assessment Notes Treatment Notes Treatment Clinical Notes Section Notes 08/29/2024 Tinea unguium (ICD-10 - B35.1) 08/29/2024 Pain in right toe(s) (ICD-10 - M79.674) 11/28/2024 Pain in right toe(s) (ICD-10 - M79.674) 03/15/2025 Pain in right toe(s) (ICD-10 - M79.674) 03/15/2025 Onychomycosis (ICD-10 - B35.1) 11/28/2024 Onychomycosis (ICD-10 - B35.1) 08/29/2024 Pain in left toe(s) (ICD-10 - M79.675) 08/29/2024 Edema, lower extremity (ICD-10 - R60.0) 11/28/2024 Pain in left toe(s) (ICD-10 - M79.675) 03/15/2025 Pain in left toe(s) (ICD-10 - M79.675) Plan Of Treatment Pending Test Test Name Order Date 80750-AIDGKJI NAIL, 6 OR MORE 07/06/2013 85578-ZCTKXJN NAIL, 6 OR MORE 09/29/2013 18958-QCZBLVR NAIL, 6 OR MORE 01/16/2014 59899-DBSLVIX NAIL, 6 OR MORE 04/24/2014 27914-OFCEUZA NAIL, 6 OR MORE 07/31/2014 54776-EUAMSCL NAIL, 6 OR MORE 11/02/2014 77037-PNVYXZH NAIL, 6 OR MORE 02/08/2015 61731-TUQCPJE NAIL, 6 OR MORE 05/14/2015 25393-ZVMQEIZ NAIL, 6 OR MORE 08/20/2015 67795-RXNNBWF NAIL, 6 OR MORE 11/22/2015 68452-YJLXHIR NAIL, 6 OR MORE 02/25/2016 46512-CMMCWUA NAIL, 6 OR MORE 05/29/2016 12803-XYXRHFZ NAIL, 6 OR MORE 08/28/2016 75048-GPHOTCP NAIL, 6 OR MORE 11/20/2016 63471-BGWXIVU NAIL, 6 OR MORE 03/05/2017 84853-XAHDNPU NAIL, 6 OR MORE 07/02/2017 95421-LZRSFUQ NAIL, 6 OR MORE 11/02/2017 15569-DXSTMUI NAIL, 6 OR MORE 01/25/2018 26621-NHUZOII NAIL, 6 OR MORE 04/12/2018 41382-MOSDDQN NAIL, 6 OR MORE 07/08/2018 74082-AQHBPVN NAIL, 6 OR MORE 10/21/2018 94178-OHHXVAK NAIL, 6 OR MORE 01/13/2019 14806-HSIVESJ NAIL, 6 OR MORE 04/28/2019 77949-ZZUYUUV NAIL, 6 OR MORE 07/18/2019 11131-GUDHRBT NAIL, 6 OR MORE 09/19/2019 41681-MDZSOSH NAIL, 6 OR MORE 12/12/2019 09309-YGEVVGX NAIL, 6 OR MORE 03/05/2020 95699-OTRYEOC NAIL, 6 OR MORE 05/21/2020 19325-FWEHNJX NAIL, 6 OR MORE 08/09/2020 22515-YBPRTCK NAIL, 6 OR MORE 10/29/2020 46629-RMCUTXD NAIL, 6 OR MORE 02/18/2021 67196-OIODGJG NAIL, 6 OR MORE 05/09/2021 85215-LPBUYTA NAIL, 6 OR MORE 08/08/2021 57238-UFXYHBB NAIL, 6 OR MORE 10/28/2021 10308-SITHAHD NAIL, 6 OR MORE 01/06/2022 78943-XGAHTSM NAIL, 6 OR MORE 05/15/2022 09288-BLEFCPU NAIL, 6 OR MORE 07/28/2022 85690-KDLLZUX NAIL, 6 OR MORE 10/16/2022 83064-WFDSSCJ NAIL, 6 OR MORE 12/25/2022 04721-TIYCAKE NAIL, 6 OR MORE 03/16/2023 65488-WXCFYET NAIL, 6 OR MORE 05/28/2023 61923-WQYOZCD NAIL, 6 OR MORE 08/27/2023 78810-ARQGHQW NAIL, 6 OR MORE 12/07/2023 12328-LFPHXLF NAIL, 6 OR MORE 02/22/2024 99448-VNAFACX NAIL, 6 OR MORE 05/26/2024 41423-BGBMYOD NAIL, 6 OR MORE 08/29/2024 04767-UXWQVYM NAIL, 6 OR MORE 11/28/2024 15500-PERUAUV NAIL, 6 OR MORE 03/15/2025 73085-ZKTCMJS NAIL, 6 OR MORE 07/27/2011 02697-JITQCOD NAIL, 1-5 04/24/2013 48155-Tycspbjj Plate 07/27/2011 75169-Bmrhlgnp Plate 10/14/2011 25301-Dhrqarei Plate 01/20/2012 30768-Pspwztsd Plate 04/20/2012 06546-Rftxnnip Plate 07/25/2012 88229-Dukdnari Plate 10/24/2012 50415-Jfiijinq Plate 01/23/2013 58628- Removal of Foreign Body, Subcut 0 05/21/2020 Next Appt Details Provider Name:Allie Escobedo estephania, 06/28/2025 09:15:00 AM, [address] [place], [address], Insurance Providers Payer Name Payer Address Payer Phone Subscriber Number Group Number Insured Name Patient Relationship to Insured Coverage Start Date Coverage End Date Medicare National Govt [facility] [address] [facility] [place] [address] [id number] Ponce Fitzpatrick Self - patient is the insured 8 [employer] Secondary to Medicare [address] [place] [id number] Ponce Fitzpatrick Self - patient is the insured Medical (General) History Medical History History ICD Code measles Arthritis Prostate conditions Hypercholesterolemia Surgical History Surgery Date(Month/Year) appendectomy amputation, left thumb and index finger Left Hip Replacement 08/28/15 Heart Valve replacement Surgery 03/01/23 Right hip replacement 10/25/23 Hospitalization History Reason Date(Month/Year) [facility]- infection of the bladder 06/2013 Splinter removal 03/2018 Hip replacement - [facility]nor
[2025-06-28 09:11] LABS: Cholesterol 197 mg/dL (<200); HDL Cholesterol 49 mg/dL (>40); Triglycerides 129 mg/dL (<150)
== END 2025-06-28 06:34 | disposition home or self-care (01) ==
LOC: HO.HMGCLDS 06:33
PROVIDERS: PCP Nurse Practitioner Family; Visit Provider Nurse Practitioner Family
DX: E78.5 Hyperlipidemia, unspecified (principal)
CPT/HCPCS: 36415; 80061

== ENCOUNTER 2025-07-05 09:04 | Outpatient (AMB) | payer MEDICARE, SELFPAY ==
[2025-07-05 09:10] VITALS: BP 116/60; BMI 30.9
--- NOTE | 2025-07-05 09:10 | A.OFFVIS_ITS ---
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 Referred by MEREDITH Perry, the patient underwent an ultrasound revealing a minor blockage on the right carotid artery, with the left side being normal. The patient denies any neurological symptoms such as weakness, speech difficulties, or vision loss. He has a history of hypertension and spinal arthritis, impacting his mobility, and reports walking limitations due to leg discomfort, particularly on the left side. Upon further discussion with him he reports that he can walk a proximally a half a block prior to leg cramping. He reports that this is left more so than right. The patient smokes half a pack of cigarettes daily and has a family history of diabetes, although he is not diabetic. In addition he has a history of coronary artery disease with prior TAVR. He is being maintained on an aspirin and statin ON LICENSE OF [facility] Medical History Coronary artery disease Paroxysmal atrial fibrillation Non-rheumatic aortic stenosis Status post transcatheter aortic valve replacement (TAVR) using bioprosthesis Essential hypertension Dyslipidemia Systolic murmur COPD (chronic obstructive pulmonary disease) Cough Nicotine dependence, cigarettes, uncomplicated Erectile dysfunction Enlarged prostate Dermatochalasis of both eyelids Acute hypoxic respiratory failure Arthritis Right shoulder pain Deformity of left hand Diverticulosis Rectus diastasis Umbilical hernia History of skin cancer Surgical History History of transcatheter aortic valve replacement (TAVR) History of cardiac cath History of left hip replacement History of right hip replacement History of hand surgery History of Mohs micrographic surgery for skin cancer History of appendectomy History of colonoscopy Family History Father Heart failure Mother Breast cancer Social History Household Members: Significant Other Housing: House Are you a primary director career to a significant other at home: No Do you presently have visiting nurse or other home services: No Alcohol intake: never Comment: pt refusing high falls measures except socks and signage Patient Tobacco Use Status: Current everyday Tobacco user Tobacco use type: Cigarette Cigarette Packs Per Day: 0.5 Cigarettes Per Day: 10.0 Years Smoked: 55 e-Cigarette/Vaping Use: Never Used Second Hand Smoke Exposure: No service: No Current occupational status: employed Cognitive needs: No Hearing needs: No Vision needs: Yes Review of Systems Const All systems reviewed & are unremarkable except as noted in HPI and below Reports no additional complaints ENT Reports Normal hearing present Card Denies chest pain, Denies chest pain at rest, Denies chest pain with activity and Denies pedal edema Resp Denies cough GI Denies abdominal pain Musc Denies abnormal gait, Denies muscle cramps and Denies radiating pain into limb Skin/Breast Denies skin ulcer and Denies wounds Neuro Reports Normal hearing present and Denies abnormal gait Psych Reports no additional complaints Physical Exam Vital Signs: Last Vital Signs BP 124/58 L 07/05/25 09:22 BMI result Body Mass Index 30.9 Const General: cooperative, healthy appearing and comfortable Orientation/consciousness: oriented to person, oriented to place and oriented to time HEENT Head: Yes normal to inspection Neck Neck: Yes normal visual inspection Carotids: no bruits Chest Chest palpation & inspection: normal inspection of the chest Resp Effort & Inspection: normal respiratory effort and able to speak in complete sentences Auscultation: clear to auscultation bilaterally, no crackles, no rales, no rhonchi and no wheezes Cardio Other: Bilateral DP signals Rate: regular rate Rhythm: regular rhythm Heart sounds: S1 normal heart sound present and S2 normal heart sound present Bruits: no carotid bruits GI Inspection: Yes normal to inspection Skin Wounds: no wounds Hair: normal Neuro General: oriented to person, oriented to place and oriented to time Cranial nerves: Yes CN's II-XII intact bilaterally and Yes Normal hearing present Cognition (Neuro): normal cognition Motor exam (neuro): 5/5 motor strength present throughout Extrem Other: venous exam: No significant superficial varicosities or spider telangiectasias, minimal edema General: No clubbing, No cyanosis and No edema Psych Appearance: grossly normal Mental Status: mental status grossly normal Speech and movement: Normal speech and movement present Results Reviewed Results Reviewed: Carotid testing dated 05/14/2025 demonstrates right side 50-79% stenosis left- sided 0-49% stenosis. Written report and images were reviewed Assessment & Plan Assessment & Plan (1) Bilateral carotid artery stenosis: Code(s): I65.23 - Occlusion and stenosis of bilateral carotid arteries Category: Medical Plan: In short patient has asymptomatic carotid disease. We have reviewed signs and symptoms of a stroke. We also discussed risk factor modification inclusive a healthy diet low in cholesterol. The patient will follow up with us with surveillance ultrasound of the carotids 1 year. Should there be any changes or signs or symptoms of a stroke we will be happy to see them back sooner. Thank you for allowing us to participate in this patient's care. If there are any questions or concerns please do not hesitate to contact us. (2) PAD (peripheral artery disease): Code(s): I73.9 - Peripheral vascular disease, unspecified Category: Medical Plan: Due to the patient's medical history he does exhibit symptoms of claudication. He appears to be a half block claudication. I have taken the liberty of ordering noninvasive arterial testing. He will follow up with us after testing. Written report and images were reviewed. Orders: Orders US arterial duplex LE BI Today I73.9 - Peripheral vascular disease, unspecified Coding Level of Care Code New Pt Level 4 (85273) Diagnoses Bilateral carotid artery stenosis I65.23 PAD (peripheral artery disease) I73.9
[2025-07-05 09:22] VITALS: BP 124/58
--- OUTSIDE RECORDS SUMMARY | 2025-07-05 09:50 | XMS_ITS | Clinical Summary ---
Author Organization [facility] Address [address] [address] Phone Care Team Providers Care Coach Driver Name Role Phone Pcp, Unknown Primary Care [...] (AAA) SCREENING 2016 DEPRESSION SCREENING 05/22/2020 05/22/2019 INFLUENZA VACCINE (#1) 2025 COVID-19 VACCINE (3 - 2024-2 6 season) 2025 01/23/2021, 01/01/2021 HEPATITIS A VACCINES Aged Out [...] topic Medical Devices Not on file Insurance [facility] MEDICARE SUPPLEMENT MEDICARE PART A & B [facility] MEDICARE SUPPLEMENT MEDICARE PART A & B [facility] MEDICARE SUPPLEMENT MEDICARE PART A & B [facility] MEDICARE SUPPLEMENT MEDICARE PART A & B MEDICARE SUPPLEMENT MEDICARE PART A [place] [address] [place] [address] MEDICARE SUPPLEMENT MEDICARE PART A & B [facility] MEDICARE SUPPLEMENT MEDICARE PART A & B [facility] MEDICARE SUPPLEMENT MEDICARE PART A & B [facility] MEDICARE SUPPLEMENT MEDICARE PART A & B Care Teams Coach Driver Relationship Specialty Start Date End Date Pcp, Unknown PCP - General 12/25/22 Additional Source Comments The information contained in this document represents components of the legal health record. It is not the complete legal health record.[facility]
== END 2025-07-05 10:03 | disposition home or self-care (01) ==
LOC: HO.HVS 09:05
PROVIDERS: PCP Nurse Practitioner Family; Visit Provider Surgery Vascular Surgery
DX: I65.23 Occlusion and stenosis of bilateral carotid arteries (principal); I73.9 Peripheral vascular disease, unspecified
CPT/HCPCS: 99204

== ENCOUNTER → 2025-07-05 09:04 | Outpatient (BNVA) | payer MEDICARE, SELFPAY | PROVIDERS: PCP Nurse Practitioner Family; Visit Provider Surgery Vascular Surgery | DX: I65.23 Occlusion and stenosis of bilateral carotid arteries (principal); I73.9 Peripheral vascular disease, unspecified; Z72.0 Tobacco use | CPT/HCPCS: 99202 ==

== ENCOUNTER 2025-08-03 09:28 | Outpatient (AMB) | payer MEDICARE, SELFPAY ==
--- OUTSIDE RECORDS SUMMARY | 2024-05-19 04:45 | XMS_ITS ---
Author Organization [facility] Address [address] [place] [id number] Care Team Providers Care Per Diem Physical Therapist Name Role Phone Vicky DUMONT, Efraín Primary Care Provider Unav ailable Allie Ziegler Unavailable [phone] Woo Carmona Unavailable [phone] Encounters Encounter Location Date Provider Diagnosis [address] [id number] 05/19/2024 Woo Carmona Plan Of Treatment Next Appt Details Provider Name:Allie best, 10/03/2025 10:00:00 AM, [address] [place] [address], [phone], Provider Name:Allie best, 10/22/2025 09:00:00 AM, [address] [place] [address], [phone], Progress Notes * Ponce BLAIR RDOB:[birth year] (75 yo M)Acc No.[id number]:05/19/2024 Progress Note Patient: Ponce WOMACK Provider: Tigre Carmona DPM :1950 A ge:74 Y S ex:Male Date:05/19/2024 Address:[address] [place] [address] [place], [phone] Pcp:JULIA Spencer Subjective: * Chief Complaints: * * Medical History: Objective: * Vitals: Assessment: Plan: * Treatment: * Images: * The named appointment provid er may or may not be the originator of this progress note, and it is not deemed complete until electronically signed by the appointment provider. Sign off status: Pending * Provider: Tigre Carmona DPM Date: 0 05/19/2024 Generated for Tanna Lemus/Shon on: 10:25 AM EDT
--- OUTSIDE RECORDS SUMMARY | 2025-03-06 05:30 | XMS_ITS ---
Author Organization [facility] Address [address] [place] [address] Care Team Providers Care Solar Sales Rep Name Role Phone Vicky DUMONT, Efraín Primary Care Provider Unav ailable Allie Ziegler Unavailable [phone] Woo Carmona Unavailable [phone] Encounters Encounter Location Date Provider Diagnosis [address] [address] 03/06/2025 Woo Carmona Plan Of Treatment Next Appt Details Provider Name:Allie best, 10/03/2025 10:00:00 AM, [address] [place] [address], [phone], Provider Name:Allie best, 10/22/2025 09:00:00 AM, [address] [place] [address], [phone], Progress Notes * Ponce BLAIR RDOB:[birth year] (75 yo M)Acc No.[id number]:03/06/2025 Progress Note Patient: Ponce WOMACK Provider: Tigre Carmona DPM :1950 A ge:74 Y S ex:Male Date:03/06/2025 Address:[address] [place] [phone] Pcp:JULIA Spencer Subjective: * Chief Complaints: * [...] 0 03/06/2025 Generated for Tanna soto/Paul/Shon on: 10:25 AM EDT
--- OUTSIDE RECORDS SUMMARY | 2025-06-08 10:00 | XMS_ITS ---
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 Name Role Phone Vicky DUMONT, Efraín Primary Care Provider Unav ailable Allie Ziegler Unavailable [phone] Woo Carmona Unavailable [phone] Encounters Encounter Location Date Provider Diagnosis [address] [address] 06/08/2025 Woo Carmona Plan Of Treatment Next Appt Details Provider Name:Allie best, 10/03/2025 10:00:00 AM, [address] [place] [address], [phone], Provider Name:Allie best, 10/22/2025 09:00:00 AM, [address] [place] [address], [phone], Progress Notes * Ponce BLAIR RDOB:[birth year] (75 yo M)Acc No.[id number]:06/08/2025 Progress Note Patient: Ponce WOMACK Provider: Tigre Carmona DPM :1950 A ge:75 Y S ex:Male Date:06/08/2025 Address:[address] [place] [address] [place], [id number] Pcp:JULIA Spencer Subjective: * Chief Complaints: * [...] 0 06/08/2025 Generated for Tanna soto/Paul/Shon on: 10:26 AM EDT
[2025-08-03 10:02] VITALS: BP 148/68; PULSE 57; BMI 30.9
--- NOTE | 2025-08-03 10:02 | A.OFFVIS_ITS ---
Vital Signs 08/03/25 10:02 Height 5 ft 9 in Weight 209 lb BMI 30.9 BP 148/68 H Blood Pressure Location Rt brachial Position Sitting Pulse 57 Intake Visit Reasons: lipoma on back Intake Note: Patient is seen for office procedure: Excision of epidermal cyst of the back. Pt c/o: no changes since last visit. s/p: 08/17/25 @ 10:15 Activities Coordinator Required: No Accompanied by: Self / Same As Patient Allergies apixaban (From Eliquis) Allergy (Intermediate, Verified 08/03/25 10:03) Rash formaldehyde (FORMALDEHYDE) Allergy (Unknown, Verified 08/03/25 10:03) HIVES lanolin Allergy (Verified 08/03/25 10:03) Hives propylene glycol Allergy (Verified 08/03/25 10:03) Rash a steroid cream; he is not dimitry Allergy (Unknown, Uncoded 08/03/25 10:03) Unknown HPI Comments Details: Patient returns today for excision of the midback epidermal inclusion cyst. He denies any new symptoms, bleeding or discharge. [facility] Medical History (Updated 07/05/25 @ 10:32 by Gene Li MD) Coronary artery disease Paroxysmal atrial fibrillation Non-rheumatic aortic stenosis Status post transcatheter aortic valve replacement (TAVR) using bioprosthesis Essential hypertension Dyslipidemia Systolic murmur COPD (chronic obstructive pulmonary disease) Cough Nicotine dependence, cigarettes, uncomplicated Erectile dysfunction Enlarged prostate Dermatochalasis of both eyelids Acute hypoxic respiratory failure Arthritis Right shoulder pain Deformity of left hand Diverticulosis Rectus diastasis Umbilical hernia History of skin cancer Surgical History (Updated 07/17/25 @ 09:23 by Mariluz Robles PA-C) History of transcatheter aortic valve replacement (TAVR) History of cardiac cath History of left hip replacement History of right hip replacement History of hand surgery History of Mohs micrographic surgery for skin cancer History of appendectomy History of colonoscopy Family History Father Heart failure Mother Breast cancer Social History Household Members: Significant Other Housing: House Are you a primary behavioral health care manager to a significant other at home: No Do you presently have visiting nurse or other home services: No Alcohol intake: never Comment: pt refusing high falls measures except socks and signage Patient Tobacco Use Status: Current everyday Tobacco user Tobacco use type: Cigarette Cigarette Packs Per Day: 0.5 Cigarettes Per Day: 10.0 Years Smoked: 55 e-Cigarette/Vaping Use: Never Used Second Hand Smoke Exposure: No service: No Current occupational status: employed Cognitive needs: No Hearing needs: No Vision needs: Yes Physical Exam Vital Signs: Last Vital Signs Pulse 57 08/03/25 10:02 BP 148/68 H 08/03/25 10:02 BMI result Body Mass Index 30.9 Office Procedures Excision Details: Preoperative diagnosis: Epidermal inclusion cyst midback Postoperative diagnosis: Same Procedure: Excision of epidermal inclusion cyst mid back Surgeon: Efraín Pascual MD Vamp Liner: None Anesthesia: Lidocaine 1% with epinephrine Indications for procedure: 75-year-old male patient presenting with a 3 cm epidermal inclusion cyst of the midback. He is having some discomfort associated with this cyst and requested excision. Operative findings: 3 cm noninfected epidermal inclusion cyst midback Specimen: Epidermal inclusion cyst midback Estimated blood loss: 5 mL Complications: None Procedure details: Patient was brought to the OR and placed in a prone position. The site of surgery was confirmed by the patient in the midback. After assuring informed consent, the skin was prepped with Betadine and draped in a sterile fashion. Local anesthesia was then infiltrated circumferentially around the lesion. An elliptical incision oriented transversely was then created with a scalpel. This was carried out through subcutaneous tissue and around the cyst wall. The lesion was completely excised and sent to pathology for further examination. Wounds were then reapproximated using interrupted 3-0 Polysorb sutures. Skin was closed using interrupted 3-0 nylon sutures. Sterile dressings consisting of 4 x 4 gauze, paper tape and Tegaderm were then applied. The patient tolerated the procedure well. He was discharged to home in stable condition. 44269-alkqs/arms/legs 2.1-3cm Procedure code (CPT) selection complete Assessment & Plan Assessment & Plan (1) Epidermoid cyst of skin of back: Code(s): L72.0 - Epidermal cyst Category: Medical Plan Patient will return in approximately 1 week for suture removal. Orders: Orders Surgical Today L72.0 - Epidermal cyst Coding Level of Care Code Procedure Only Diagnoses Epidermoid cyst of skin of back L72.0 CPT Codes Trunk/Arms/Legs - CPT: 02842-amtba/arms/legs 2.1-3cm ([id number])
--- OUTSIDE RECORDS SUMMARY | 2025-08-03 10:26 | XMS_ITS | Clinical Summary ---
Author Organization [facility] Address [address] [address] Phone Care Team Providers Care Handtools Repairer Name Role Phone Pcp, Unknown Primary Care [...] FOBT 1996 SIGMOIDOSCOPY 1996 VIRTUAL COLONOSCOPY 1996 RSV VACCINE (1 - Risk 50-74 years 1-dose series) 2001 ZOSTER VACCINES (1 of 2) 2001 Adult Td,Tdap Booster 07/28/2015 07/28/2005 ABDOMINAL AORTIC [...] topic Medical Devices Not on file Insurance [facility] MEDICARE SUPPLEMENT MEDICARE PART A & B [facility] MEDICARE SUPPLEMENT MEDICARE PART A & B [facility] MEDICARE SUPPLEMENT MEDICARE PART A & B [facility] MEDICARE SUPPLEMENT MEDICARE PART A & B MEDICARE SUPPLEMENT MEDICARE PART A & B [facility] MEDICARE SUPPLEMENT MEDICARE PART A & B [facility] MEDICARE SUPPLEMENT MEDICARE PART A & B [facility] MEDICARE SUPPLEMENT MEDICARE PART A & [place] [address] [address] [place] [address] MEDICARE SUPPLEMENT MEDICARE PART A & B Care Teams Handtools Repairer Relationship Specialty Start Date End Date Pcp, Unknown PCP - General 12/25/22 Additional Source Comments The information contained in this document represents components of the legal health record. It is not the complete legal health record.[facility]
--- OUTSIDE RECORDS SUMMARY | 2025-08-03 10:26 | XMS_ITS | Patient Health Record ---
[facility] Address [address] [place] [address] Care Team Providers Care Sinker Puller Name Role Phone Efraín Lazaro Primary Care Provider Allie Love Unavailable [phone] KristineWoo choudhury Unavailable [phone] Allergies Allergen (clinical drug ingredient) Drug/Non Drug Allergy documented on EMR Reaction Allergy Type Onset Date Status Information temporarily unavailable Formaldehyde rash Drug Allergy Active Reason For Referral No Information Medications Medication SIG (Take, Route, Frequency, Duration) Notes Start Date End Date Status Hydrocortisone 2.5 % 1 application Exter wendy to affected areas of itching irritated skin on foot/feet Twice a day; Duration: 30 days Active Tamsulosin HCl 0.4 MG Orally Once a day Active Nystop Active Finasteride 5 MG Orally Once a day Active Betamethasone Dipropionate Active Gabapentin Active amLODIPine Benzoate Active Atorvastatin Calcium Active Nystatin Active Compression Stockings 20-30mm Hg 1 pair wear daily; Duration: 30 days Active Immunizations Vaccine Route Administration Date Status Comme nts Influenza Unknown 08/08/2021 Refused Influenza Unknown 07/12/2024 Administered COVID-19 Pfizer BioNTech Vaccine Unknown 10/02/2021 Administered [...] Problem Status W/U Status Risk Notes Problem Information temporarily unavailable Onychomycosis (B35.1) Active confirmed Vital Signs Blood pressure diastolic 65 mm Hg 06/28/2025 Height 5 ft 9 in in 06/28/2025 Blood pressure systolic 128 mm Hg 06/28/2025 Weight 220 lbs 06/28/2025 BMI 32.48 kg/m2 06/28/2025 Procedures Procedure Date Ordered Date Performed Result Body Sit e 99253-ZAMVVLL NAIL, 6 OR MORE 08/29/2024 N/A 61208-RIVMTIU NAIL, OR MORE 11/28/2024 N/A 59460-NRFDJZY NAIL, 6 OR MORE 03/15/2025 N/A 15524-ETDWFVO NAIL, 6 OR MORE 06/28/2025 N/A Encounters Encounter Location Date Provider Diagnosis [address] [address] 08/29/2024 Woo Chengunier Tinea unguium B35.1 ; Pain in right toe(s) M79.674 ; Pain in left toe(s) M79.675 and Edema, lower extremity R60.[address] [address] 11/28/2024 Woo Kristine Pain in right toe(s) M79.674 ; Onychomycosis B35.1 and Pain in left toe(s) M79.[address] [address] 03/15/2025 Allie Ziegler Pain in right toe(s) M79.674 ; Onychomycosis B35.1 and Pain in left toe(s) M79.[address] [address] 06/28/2025 Allie Ziegler 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 ; Pain in right toe(s) M79.674 ; Onychomycosis B35.1 and Pain in left toe(s) M79.675 [facility] [address] [place] [address] 03/06/2025 Woo Carmona Assessments Encounter Date Diagnosis (ICD Code) Assessment Notes Treatment Notes Treatment Clinical Notes Section Notes 08/29/2024 Tinea unguium (ICD-10 - B35.1) 08/29/2024 Pain in right toe(s) (ICD-10 - M79.674) 11/28/2024 Pain in right toe(s) (ICD-10 - M79.674) 03/15/2025 Pain in right toe(s) (ICD-10 - M79.674) 06/28/2025 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) 06/28/2025 Pain in right toe(s) (ICD-10 - M79.674) 03/15/2025 Onychomycosis (ICD-10 - B35.1) 11/28/2024 Onychomycosis (ICD-10 - B35.1) 08/29/2024 Pain in left toe(s) (ICD-10 - M79.675) 08/29/2024 Edema, lower extremity (ICD-10 - R60.0) 11/28/2024 Pain in left toe(s) (ICD-10 - M79.675) 03/15/2025 Pain in left toe(s) (ICD-10 - M79.675) 06/28/2025 Onychomycosis (ICD-10 - B35.1) 06/28/2025 Pain in left toe(s) (ICD-10 - M79.675) Plan Of Treatment Pending Test Test Name Order Date 98456-TVHTNBY NAIL, 6 OR MORE 07/06/2013 08491-NMFWHCF NAIL, 6 OR MORE 09/29/2013 06288-LMMQYTR NAIL, 6 OR MORE 01/16/2014 46312-WUKXAPU NAIL, 6 OR MORE 04/24/2014 97656-CKGJUAP NAIL, 6 OR MORE 07/31/2014 44450-HEGRLCE NAIL, 6 OR MORE 11/02/2014 25035-XXIOPLW NAIL, 6 OR MORE 02/08/2015 34697-CHUSMAB NAIL, 6 OR MORE 05/14/2015 59872-YQNRDUQ NAIL, 6 OR MORE 08/20/2015 08087-HTXSNRX NAIL, 6 OR MORE 11/22/2015 16707-QOGLVDU NAIL, 6 OR MORE 02/25/2016 73907-ZRUTUJQ NAIL, 6 OR MORE 05/29/2016 83051-DSMHLNG NAIL, 6 OR MORE 08/28/2016 42272-AEEOMFK NAIL, 6 OR MORE 11/20/2016 92256-FLDEFXS NAIL, 6 OR MORE 03/05/2017 35698-YLALAHO NAIL, 6 OR MORE 07/02/2017 91637-WFNDMNL NAIL, 6 OR MORE 11/02/2017 21871-PGFYWEJ NAIL, 6 OR MORE 01/25/2018 15474-FYHTVZM NAIL, 6 OR MORE 04/12/2018 87052-GPOUXRC NAIL, 6 OR MORE 07/08/2018 59922-ADIYGWL NAIL, 6 OR MORE 10/21/2018 50820-TNHQMCQ NAIL, 6 OR MORE 01/13/2019 67794-TJWXLGL NAIL, 6 OR MORE 04/28/2019 68406-QXMQQQG NAIL, 6 OR MORE 07/18/2019 36369-WITFNSF NAIL, 6 OR MORE 09/19/2019 79225-IBWVXOT NAIL, 6 OR MORE 12/12/2019 07036-SYAQFRX NAIL, 6 OR MORE 03/05/2020 31299-WSBQMBL NAIL, 6 OR MORE 05/21/2020 77735-GLQLXQW NAIL, 6 OR MORE 08/09/2020 08676-CURSXLU NAIL, 6 OR MORE 10/29/2020 34668-YONVTXM NAIL, 6 OR MORE 02/18/2021 39782-VIILIHZ NAIL, 6 OR MORE 05/09/2021 54658-LTJQLJK NAIL, 6 OR MORE 08/08/2021 26033-OVOJQJO NAIL, 6 OR MORE 10/28/2021 94514-LXAGAFK NAIL, 6 OR MORE 01/06/2022 35508-IKZJOAV NAIL, 6 OR MORE 05/15/2022 13440-HKWEAMM NAIL, 6 OR MORE 07/28/2022 72749-VHJBDVF NAIL, 6 OR MORE 10/16/2022 91513-PDVPDPR NAIL, 6 OR MORE 12/25/2022 02125-DRALEWV NAIL, 6 OR MORE 03/16/2023 76762-SOWWQCT NAIL, 6 OR MORE 05/28/2023 53748-CAHDNSD NAIL, 6 OR MORE 08/27/2023 87642-RBXIUSI NAIL, 6 OR MORE 12/07/2023 79971-KXPWZZW NAIL, 6 OR MORE 02/22/2024 13417-MCXOQCK NAIL, 6 OR MORE 05/26/2024 38739-LMWOXIU NAIL, 6 OR MORE 08/29/2024 32080-OYDETHH NAIL, 6 OR MORE 11/28/2024 14970-UPSNLYE NAIL, 6 OR MORE 03/15/2025 36587-FSTPEBQ NAIL, 6 OR MORE 06/28/2025 07639-VIJSWXP NAIL, 6 OR MORE 07/27/2011 45360-LFQQNWR NAIL, 1-5 04/24/2013 35417-Btirkcme Plate 07/27/2011 12344-Llbssues Plate 10/14/2011 16255-Phaywctr Plate 01/20/2012 67436-Xenqmlhu Plate 04/20/2012 10924-Evoibvdz Plate 07/25/2012 45291-Szaqdhwv Plate 10/24/2012 11019-Htabcazj Plate 01/23/2013 76079- Removal of Foreign Body, Subcut 0 05/21/2020 Next Appt Details Provider Name:Allie Escobedo estephania, 10/03/2025 10:00:00 AM, [address] [place] [address], [phone], Provider Name:Allie Escobedo estephania, 10/22/2025 09:00:00 AM, [address] [place], [address], Insurance Providers Payer Name Payer Address Payer Phone Subscriber Number Group Number Insured Name Patient Relationship to Insured Coverage Start Date Coverage End Date Medicare National Govt [facility] [address] [place] [address] [id number] Ponce Fitzpatrick Self - patient is the insured 8 [employer] Secondary to Medicare [address] [place] [address] [id number] Ponce Fitzpatrick Self - patient is the insured Medical (General) History Medical History History ICD Code measles Arthritis Prostate conditions Hypercholesterolemia Surgical History Surgery Date(Month/Year) appendectomy amputation, left thumb and index finger Left Hip Replacement 08/28/15 Heart Valve replacement Surgery 03/01/23 Right hip replacement 10/25/23 Hospitalization History Reason Date(Month/Year) Splinter removal 03/2018 Hip replacement - [address]- infection of the bladder 06/2013
== END 2025-08-03 10:34 | disposition home or self-care (01) ==
LOC: HO.HGS 09:29
PROVIDERS: PCP Nurse Practitioner Family; Visit Provider Surgery
DX: L72.0 Epidermal cyst (principal)
CPT/HCPCS: 11403

== ENCOUNTER 2025-08-03 09:28 | Outpatient (REF) | payer MEDICARE, SELFPAY | END 2025-08-03 09:29 | disposition home or self-care (01) | LOC: HO.LNP 09:28 | PROVIDERS: PCP Nurse Practitioner Family; Visit Provider Surgery | DX: L72.0 Epidermal cyst (principal) | CPT/HCPCS: 11403; 88304 ==

== ENCOUNTER → 2025-08-17 10:01 | Outpatient (BNVA) | payer MEDICARE, SELFPAY | PROVIDERS: PCP Nurse Practitioner Family; Visit Provider Surgery | DX: Z48.02 Encounter for removal of sutures (principal) | CPT/HCPCS: 99211 ==

== ENCOUNTER 2025-09-04 10:40 | Outpatient (AMB) | payer MEDICARE, SELFPAY ==
--- NOTE | 2025-09-04 11:07 | A.OFFVIS_ITS ---
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: No Accompanied by: Self / Same As Patient Allergies apixaban (From Eliquis) Allergy (Intermediate, Verified 08/03/25 10:03) Rash formaldehyde (FORMALDEHYDE) Allergy (Unknown, Verified 08/03/25 10:03) HIVES lanolin Allergy (Verified 08/03/25 10:03) Hives propylene glycol Allergy (Verified 08/03/25 10:03) Rash a steroid cream; he is not dimitry Allergy (Unknown, Uncoded 08/03/25 10:03) Unknown Medication List - Last Reconciled 09/04/25 by Froylan Galvan MD acetaminophen 650 mg PO BID albuterol sulfate 90 mcg/actuation (Ventolin HFA) 2 puffs inhalation Q4-6H PRN 30 days amlodipine 10 mg PO DAILY aspirin (Adult Aspirin Regimen) 81 mg PO DAILY atorvastatin 40 mg PO QPM azithromycin For 250 mg dose pack: take 500 mg today (day 1), then 250 mg for 4 days (days 2-5) PO [bedside commode As directed] betamethasone dipropionate 0.05% topical cane As directed cetirizine 10 mg PO BID 90 days cholecalciferol (vitamin D3) 125 mcg PO DAILY finasteride 5 mg PO BEDTIME gabapentin 300 mg PO TID 30 days losartan 100 mg PO DAILY nystatin 1 appl topical DAILY prednisone 20 mg PO BID 5 days [Raised toliet seat As directed] tamsulosin 0.4 mg PO BEDTIME walker Folding front wheeled walker HPI Comments Details: Ponce returns for follow-up. History of transcatheter aortic valve replacement. Medically treated CAD. In 09/2024, he had hospitalization for influenza and in that setting, had atrial fibrillation. He is not on Eliquis per his own preference. Otherwise, he states he is feeling fine and does not have any cardiac symptoms. [facility] Medical History Coronary artery disease Paroxysmal atrial fibrillation Non-rheumatic aortic stenosis Status post transcatheter aortic valve replacement (TAVR) using bioprosthesis Essential hypertension Dyslipidemia Systolic murmur COPD (chronic obstructive pulmonary disease) Cough Nicotine dependence, cigarettes, uncomplicated Erectile dysfunction Enlarged prostate Dermatochalasis of both eyelids Acute hypoxic respiratory failure Arthritis Right shoulder pain Deformity of left hand Diverticulosis Rectus diastasis Umbilical hernia History of skin cancer Surgical History History of transcatheter aortic valve replacement (TAVR) History of cardiac cath History of left hip replacement History of right hip replacement History of hand surgery History of Mohs micrographic surgery for skin cancer History of appendectomy History of colonoscopy Family History Father Heart failure Mother Breast cancer Social History Household Members: Significant Other Housing: House Are you a primary neonatal critical care nurse to a significant other at home: No Do you presently have visiting nurse or other home services: No Alcohol intake: never Comment: pt refusing high falls measures except socks and signage Patient Tobacco Use Status: Current everyday Tobacco user Tobacco use type: Cigarette Cigarette Packs Per Day: 0.5 Cigarettes Per Day: 10.0 Years Smoked: (onset 17yo, 1/2ppd x 58yrs, 30pyh) e-Cigarette/Vaping Use: Never Used Second Hand Smoke Exposure: No service: No Current occupational status: employed Cognitive needs: No Hearing needs: No Vision needs: Yes Review of Systems Const All systems reviewed & are unremarkable except as noted in HPI and below Reports as per HPI and Reports no additional complaints Eyes Reports as per HPI and Denies no additional complaints ENT Denies no additional complaints and Reports as per HPI Card Reports as per HPI, Reports no additional complaints, Denies acrocyanosis, Denies chest pain, Denies leg edema, Denies lightheadedness, Denies palpitations and Denies dyspnea Resp Reports as per HPI, Denies no additional complaints and Denies dyspnea GI Reports as per HPI and Denies no additional complaints Reports no additional complaints and Reports as per HPI Musc Reports no additional complaints and Reports as per HPI Skin/Breast Reports system reviewed and no additional complaints, except as documented Neuro Reports no additional complaints and Reports as per HPI Psych Reports no additional complaints and Reports as per HPI Endo Reports no additional complaints, Reports as per HPI and Denies palpitations Diego/Lymph Reports no additional complaints and Reports as per HPI Aller/Immun Reports no additional complaints and Reports as per HPI Physical Exam Vital Signs: Last Vital Signs Pulse 57 09/04/25 11:09 BP 124/60 09/04/25 11:09 BMI result Body Mass Index 31.0 Const General: comfortable and no acute distress Orientation/consciousness: patient oriented x3 HEENT Other: Unremarkable Head: Yes normal to inspection Neck Neck: Yes normal visual inspection Chest Chest palpation & inspection: normal inspection of the chest Resp Auscultation: clear to auscultation bilaterally Cardio Palpation: normal PMI Heart sounds: S1 normal heart sound present, S2 normal heart sound present, no gallops, Murmur heart sound present systolic II/ and at the right sternal border and no rubs GI Palpation (GI): Soft to palpation Back/Spine/Pelvis Other: unremarkable Skin General skin exam: no rashes or lesions noted Neuro General: patient oriented x3 Extrem General: Yes normal to inspection Psych Mental Status: mental status grossly normal Office Procedures EKG Details: EKG with sinus bradycardia at 57/Min; no ischemic changes; [place]. [address]-Ldwdsrdymjrtvlghj, Complete Assessment & Plan Assessment & Plan (1) Status post transcatheter aortic valve replacement (TAVR) using bioprosthesis: Code(s): Z95.3 - Presence of xenogenic heart valve Category: Medical Plan: Status post TAVR. In the last echocardiogram, normal bioprosthetic aortic valve function. Otherwise, infective endocarditis prophylaxis per protocol. Low-dose aspirin. (2) Paroxysmal atrial fibrillation: Code(s): I48.0 - Paroxysmal atrial fibrillation Category: Medical Plan: Occurrence in the setting of influenza but no clinical events after that. Has had some rash issue with Holter but it seems he also had eczema. With regard to anticoagulation, has taken Eliquis briefly but not on it anymore. He does not want to go back on it. (3) Coronary artery disease: Code(s): I25.10 - Atherosclerotic heart disease of [place] coronary artery without angina pectoris Category: Medical Qualifiers: Associated angina: without angina Coronary Disease-Associated Artery/Lesion type: [place] artery Plan: Cardiac catheterization in the past with moderate disease in the mid right coronary artery; severe circumflex stenosis. Clinically, no angina. On statins. LDL was controlled but recent levels are higher. Unclear compliance. (4) Essential hypertension: Code(s): I10 - Essential (primary) hypertension Category: Medical Plan: Stable. (5) Smoker: Comment: HISTORY OF SMOKING 1 PACK A DAY THROUGHOUT HIS ADULT LIFE, REDUCED TO HALF PACK A DAY SINCE 5 YEARS AGO. Code(s): F17.200 - Nicotine dependence, unspecified, uncomplicated Category: Social Hx Plan: Longstanding issue and unlikely that he will change. (6) Preoperative cardiovascular examination: Code(s): Z01.810 - Encounter for preprocedural cardiovascular examination Category: Medical Plan: Plan for colonoscopy. Low cardiac risk. Plan Discussion Notes I discussed the patient's history of atrial fibrillation and the associated risk of stroke, explaining that blood thinners are the ideal preventive measure. The patient reiterated the decision to not take Eliquis, citing a previous rash and personal preference, which I acknowledged. I advised the patient to let me know if there is a change of mind regarding this decision. We also reviewed that high cholesterol is being managed with atorvastatin. A follow-up appointment in six months was agreed upon. Patient was informed and verbally consented to the use of an ambient scribe for clinic note documentation during this visit. Patient Instructions: - We discussed that your condition, atrial fibrillation, puts you at a higher risk for a stroke. - Taking a blood thinner like Eliquis is recommended to lower this risk, but you have decided against it. - Please inform us if you change your mind about taking a blood thinner. - Continue taking your other pills every day as prescribed, including atorvastatin for your high cholesterol. - We will see you for a follow-up visit in six months. Coding Level of Care Code Est Pt Level 4 (57608) Complex visit Add On G2211 Diagnoses Status post transcatheter aortic valve replacement (TAVR) using bioprosthesis Z95.3 Paroxysmal atrial fibrillation I48.0 Coronary artery disease I25.10 Associated angina: without angina Coronary Disease-Associated Artery/Lesion type: [place] artery Essential hypertension I10 Smoker F17.200 Preoperative cardiovascular examination Z01.810 CPT Codes EKG - CPT: 82595-Itkzohkxpxdfedntu, Complete ([id number])
[2025-09-04 11:09] VITALS: BP 124/60; PULSE 57; BMI 31.0
== END 2025-09-04 11:30 | disposition home or self-care (01) ==
LOC: HO.HCS 10:41
PROVIDERS: PCP Nurse Practitioner Family; Visit Provider Internal Medicine
DX: Z95.3 Presence of xenogenic heart valve (principal); I48.0 Paroxysmal atrial fibrillation; I25.10 Atherosclerotic heart disease of native coronary artery without angina pectoris; I10 Essential (primary) hypertension; F17.200 Nicotine dependence, unspecified, uncomplicated; Z01.810 Encounter for preprocedural cardiovascular examination
CPT/HCPCS: 93010; 99214; G2211

== ENCOUNTER → 2025-09-04 10:40 | Outpatient (BNVA) | payer MEDICARE, SELFPAY | PROVIDERS: PCP Nurse Practitioner Family; Visit Provider Internal Medicine | DX: Z01.810 Encounter for preprocedural cardiovascular examination (principal); I48.0 Paroxysmal atrial fibrillation; I25.10 Atherosclerotic heart disease of native coronary artery without angina pectoris; I10 Essential (primary) hypertension; I49.8 Other specified cardiac arrhythmias; F17.210 Nicotine dependence, cigarettes, uncomplicated; Z95.3 Presence of xenogenic heart valve | CPT/HCPCS: 93005; 99212 ==

== ENCOUNTER 2025-09-12 09:35 | Outpatient (REF) | payer MEDICARE, SELFPAY ==
--- NOTE | ~2025-09-12 | US_ITS ---
EXAMINATION: Noninvasive assessment of the bilateral lower extremities with ARTERIAL DUPLEX, ANKLE BRACHIAL INDICES (ABIs), and PULSE VOLUME RECORDINGS (PVRs). CLINICAL INFORMATION: I 73.9. TECHNIQUE: Duplex Doppler techniques with waveform analysis and measurement of velocities in the bilateral common femoral, profunda femoris, superficial femoral, popliteal and tibial arteries were performed. Additionally, ankle pulse volume recordings, ankle pressure measurements and ankle brachial indices were obtained of the lower extremity arterial system bilaterally. The study was performed only at rest. COMPARISON: None FINDINGS: Calcified plaques throughout the interrogated arteries. DIRECT DUPLEX DOPPLER FINDINGS: RIGHT LEG: Common femoral artery: 170 cm/s, phasicity: Triphasic. Profunda femoris artery: 148 cm/s, phasicity: Triphasic. Superficial femoral artery (proximal): 185 cm/s, phasicity: Triphasic. Spectral broadening. Superficial femoral artery (mid): 142 cm/s, phasicity: Triphasic. Superficial femoral artery (distal): 184 cm/s, phasicity: Triphasic. Popliteal artery: 111 cm/s, phasicity: Triphasic. Spectral broadening. Posterior tibial artery: 79 cm/s, phasicity: Biphasic. Spectral broadening. Arrhythmia. Peroneal artery: 25 cm/s, phasicity: Biphasic. Spectral broadening. Anterior tibial artery: 67 cm/s, phasicity: Biphasic. Spectral broadening. Dorsalis pedis artery: 56 cm/s, phasicity:Biphasic. Spectral broadening. There is a 3.3 cm anechoic lesion in the right popliteal fossa without septations or flow on color Doppler interrogation. LEFT LEG: Common femoral artery: 233 cm/s, phasicity: Triphasic. Spectral broadening. Profunda femoris artery: 200 cm/s, phasicity: Triphasic. Spectral broadening. Superficial femoral artery (proximal): 215 cm/s, phasicity: Triphasic. Spectral broadening. Superficial femoral artery (mid): 129 cm/s, phasicity: Triphasic. Spectral broadening. Superficial femoral artery (distal): 255 cm/s, phasicity: Triphasic. Spectral broadening. Popliteal artery: 160 cm/s, phasicity: Triphasic. Spectral broadening. Posterior tibial artery: 70 cm/s, phasicity: Biphasic. Spectral broadening. Peroneal artery: 45 cm/s, phasicity: Biphasic. Anterior tibial artery: 50 cm/s, phasicity: Biphasic. Spectral broadening. Dorsalis pedis artery: 12 cm/s, phasicity: Monophasic. Spectral broadening. BRACHIAL PRESSURES: Right: 128 Left: 116 ANKLE PRESSURES: Right: PT 128, DP 120 Left: PT 99, DP 88 ANKLE-BRACHIAL INDEX: Right: 1.0 Left: 0.77 ANKLE PVR WAVEFORMS: Right: Abnormal Left: Abnormal US/US arterial duplex BI w/ JULIA IMPRESSION: Right leg: Mild to moderate inflow disease involving arteries below the knee to the ankle. Left leg: Severe inflow disease, dorsalis pedis artery. Concerning hemodynamically significant stenosis at the common femoral artery and proximal and distal superficial femoral arteries. JULIA Reference: - >1.4 = calcified vessels - 0.9 - 1.4 = normal - no significant arterial disease - 0.7 - 0.89 = mild peripheral arterial disease - 0.51 - 0.69 = moderate peripheral arterial disease - 0.50 = severe peripheral arterial disease - < .30 = critical arterial disease Electronically signed by: Lonny Knight MD 09/12/2025 02:09 PM [facility]
--- OUTSIDE RECORDS SUMMARY | 2025-09-12 10:35 | XMS_ITS | Clinical Summary ---
Author Organization [facility] Address [address] [address] Phone Care Team Providers Care Hair Mixer Name Role Phone Pcp, Unknown Primary Care [...] topic Medical Devices Not on file Insurance [facility] MEDICARE SUPPLEMENT MEDICARE PART A & B [facility] MEDICARE SUPPLEMENT MEDICARE PART A & B [facility] MEDICARE SUPPLEMENT MEDICARE PART A & B [facility] MEDICARE SUPPLEMENT MEDICARE PART A & B MEDICARE SUPPLEMENT MEDICARE PART A & B [facility] MEDICARE SUPPLEMENT MEDICARE PART A & B [facility] MEDICARE SUPPLEMENT MEDICARE PART A & B [facility] MEDICARE SUPPLEMENT MEDICARE PART A & [place] [address] [place] [address] MEDICARE SUPPLEMENT MEDICARE PART A & B Care Teams Hair Mixer Relationship Specialty Start Date End Date Pcp, Unknown PCP - General 12/25/22 Additional Source Comments The information contained in this document represents components of the legal health record. It is not the complete legal health record.[facility]
== END 2025-09-12 09:36 | disposition home or self-care (01) ==
LOC: HO.US 09:35
PROVIDERS: PCP Nurse Practitioner Family; Visit Provider Surgery Vascular Surgery
DX: I73.9 Peripheral vascular disease, unspecified (principal)
CPT/HCPCS: 93922; 93925

== ENCOUNTER → 2025-09-12 09:37 | Outpatient (BNV) | payer MEDICARE, SELFPAY | PROVIDERS: PCP Nurse Practitioner Family; Visit Provider Radiology Diagnostic Radiology | DX: I73.9 Peripheral vascular disease, unspecified (principal) | CPT/HCPCS: 93925 ==

== ENCOUNTER 2025-09-21 09:48 | Outpatient (REF) | payer MEDICARE, SELFPAY ==
--- NOTE | ~2025-09-21 | CT_ITS ---
EXAMINATION: CT LUNG SCREENING HISTORY: F17.210 - Nicotine dependence, cigarettes, uncomplicated TECHNIQUE: Low dose axial images were obtained from the sternal notch to upper abdomen without IV contrast per standard departmental protocol. Sagittal and coronal reformatted images were also obtained and reviewed. One or more of the following techniques was used for dose reduction: Automated exposure control, adjustment of the mA and/or kV according to patient size, use of iterative reconstruction technique. DLP: 62 mGy-cm COMPARISON: Comparison is made with the prior examination dated 09/30/2024. FINDINGS: Lung nodules: Again seen is a 3 mm nodule in the right middle lobe (series 5, image 97). There are calcified granulomas in the left upper lobe (series 5, images 38 and 52) without change. No new pulmonary nodules are identified. Emphysema: none Coronary Calcification: severe Aortic Arch Calcification: moderate. The patient is status post aortic valve replacement. Potentially Significant Incidentals : none Additional Chest Findings: There is no pleural or pericardial effusion. No mediastinal or axillary lymphadenopathy is identified. There is a small hiatal hernia. Visualized upper abdomen: The visualized portions of the liver, spleen, and adrenals have an unremarkable unenhanced appearance. CT/CT lung screening IMPRESSION: No suspicious pulmonary nodules are identified. LUNG-RADS ASSESSMENT: Lung-RADS 2: Benign MANAGEMENT: Continue annual screening with LDCT in 12 months Category S: N/A Electronically signed by: Stephen Johns MD 09/21/2025 10:25 AM [facility]
== END 2025-09-21 09:49 | disposition home or self-care (01) ==
LOC: HO.CT 09:48
PROVIDERS: PCP Nurse Practitioner Family; Visit Provider Physician Assistant Medical
DX: Z12.2 Encounter for screening for malignant neoplasm of respiratory organs (principal); F17.210 Nicotine dependence, cigarettes, uncomplicated
CPT/HCPCS: 71271; G0296

== ENCOUNTER → 2025-09-21 09:50 | Outpatient (BNV) | payer MEDICARE, SELFPAY | PROVIDERS: PCP Nurse Practitioner Family; Visit Provider Radiology Diagnostic Radiology | DX: F17.210 Nicotine dependence, cigarettes, uncomplicated (principal) | CPT/HCPCS: 71271 ==